=== PATIENT | female | born 1945 | race Caucasian/White ===

== ENCOUNTER → 2017-10-30 06:35 | Outpatient (CLI) | payer BC, MEDICARE, SELFPAY ==
[2017-10-30 07:55] LABS: Absolute Lymphocyte Count 2.05 X10^3/ul (0.83-4.51); Absolute Neutrophil Count 3.1 X10^3/uL (2.0-7.7); Basophil# 0.02 X10^3/uL; Basophil% 0.3 % (0-1); Eosinophil# 0.16 X10^3/uL; Eosinophils% 2.7 % (0-5); Hematocrit 39.9 % (37-47); Hemoglobin 12.5 g/dl (12.0-15.0); Lymphocyte # 2.05 X10^3/ul (4.0); Lymphocyte % 34.2 % (19-41); Mean Corp Hgb Conc 31.3 g/gl (32-36); Mean Corpuscular Hgb 28.9 pg (27.0-32.0); Mean Corpuscular Volume 92.1 fL (81-99); Mean Platelet Vol. 11.9 fl (6.2-12.0); Monocyte# 0.66 X10^3/uL; Neutrophil # 3.08 X10^3/uL (2.7-7.7); Neutrophil % 51.5 % (47-70); Platelet Count 207 K/mm3 (150-450); RBC Distribution Width CV 15.5 % (11.6-14.6); RBC Distribution Width SD 52.4 fl (35.1-43.9); Red Blood Count 4.33 M/mm3 (4.2-5.4)
[2017-10-30 07:57] LABS: POSITIVE COUNT NO; POSITIVE DIFFERENTIAL NO; POSITIVE MORPHOLOGY NO
[2017-10-30 08:42] LABS: ALB/GLOB Ratio 0.9 RATIO (0.9-2.4); AST(SGOT) 26 U/L (15-37); Alanine Aminotransfer ALT/SGPT 22 U/L (13-56); Albumin, Serum 3.5 g/dL (3.2-5.0); Alkaline Phosphatase 82 U/L (45-117); Anion Gap 8 (5-15); BUN 22 mg/dL (7-18); BUN/Creat Ratio 17.5 RATIO (10-20); Calcium,Total 8.5 mg/dL (8.5-10.1); Chloride 108 mmol/L (98-107); Cholesterol 158 mg/dL (200); Creatinine, Serum 1.26 mg/dL (0.55-1.02); EST Glomerular Filtration Rate 44 mL/min (>60); Est Glom Filt Rate - Afr Amer 54 mL/min (>60); Globulin 3.7 g/dL (2.2-4.2); Glucose 210 mg/dL (74-106); High Density Lipoprotein 35 mg/dL; Potassium 4.8 mmol/L (3.5-5.1); Protein, Total 7.2 g/dL (6.4-8.2); Sodium Level 141 mmol/L (136-145); Triglycerides 347 mg/dL; Very Low Density Lipoprotein 69 mg/dL (5-40)
[2017-10-30 08:46] LABS: Hemoglobin A1c 8.5 % (4.2-6.3)
[2017-10-30 10:10] LABS: Microalbumin:Creatinine Ratio 69.7 mg/g CRE (<30 mg/g CRE)
== END ==
PROVIDERS: Family Provider Family Medicine; PCP Family Medicine; Visit Provider Family Medicine
DX: E11.3299 Type 2 diabetes mellitus with mild nonproliferative diabetic retinopathy without macular edema, unspecified eye (principal); E11.65 Type 2 diabetes mellitus with hyperglycemia; I73.9 Peripheral vascular disease, unspecified; I10 Essential (primary) hypertension; E78.5 Hyperlipidemia, unspecified
CPT/HCPCS: 36415; 80053; 80061; 82043; 82570; 83036; 85025

== ENCOUNTER → 2018-04-25 06:51 | Outpatient (CLI) | payer MEDICARE, MEDICAID, SELFPAY ==
[2017-08-28 13:07] VITALS: BMI 35.5
[2018-04-25 08:42] LABS: Absolute Lymphocyte Count 2.03 X10^3/ul (0.83-4.51); Absolute Neutrophil Count 3.4 X10^3/uL (2.0-7.7); Basophil# 0.03 X10^3/uL; Basophil% 0.5 % (0-1); Eosinophil# 0.17 X10^3/uL; Eosinophils% 2.7 % (0-5); Hematocrit 37.4 % (37-47); Hemoglobin 11.9 g/dl (12.0-15.0); Lymphocyte # 2.03 X10^3/ul (4.0); Lymphocyte % 32.2 % (19-41); Mean Corp Hgb Conc 31.8 g/gl (32-36); Mean Corpuscular Hgb 30.1 pg (27.0-32.0); Mean Corpuscular Volume 94.4 fL (81-99); Mean Platelet Vol. 11.4 fl (6.2-12.0); Monocyte# 0.64 X10^3/uL; Monocyte% 10.1 % (0-10); Neutrophil # 3.42 X10^3/uL (2.7-7.7); Neutrophil % 54.2 % (47-70); Platelet Count 172 K/mm3 (150-450); RBC Distribution Width CV 15.3 % (11.6-14.6); RBC Distribution Width SD 51.2 fl (35.1-43.9); Red Blood Count 3.96 M/mm3 (4.2-5.4); White Blood Count 6.3 K/mm3 (4.4-11.0)
[2018-04-25 08:51] LABS: POSITIVE COUNT NO; POSITIVE DIFFERENTIAL NO; POSITIVE MORPHOLOGY NO
[2018-04-25 09:01] LABS: BUN 21 mg/dL (7-18); Creatinine, Serum 1.14 mg/dL (0.55-1.02); Glucose 170 mg/dL (74-106)
[2018-04-25 09:02] LABS: AST(SGOT) 15 U/L (15-37); Alanine Aminotransfer ALT/SGPT 22 U/L (13-56); Albumin, Serum 3.4 g/dL (3.2-5.0); Alkaline Phosphatase 83 U/L (45-117); Anion Gap 9 (5-15); BUN/Creat Ratio 18.4 RATIO (10-20); Calcium,Total 8.8 mg/dL (8.5-10.1); Chloride 109 mmol/L (98-107); Cholesterol 151 mg/dL (200); EST Glomerular Filtration Rate 50 mL/min (>60); Est Glom Filt Rate - Afr Amer 60 mL/min (>60); Globulin 3.5 g/dL (2.2-4.2); High Density Lipoprotein 33 mg/dL; Potassium 4.6 mmol/L (3.5-5.1); Protein, Total 6.9 g/dL (6.4-8.2); Sodium Level 142 mmol/L (136-145); Triglycerides 331 mg/dL; Very Low Density Lipoprotein 66 mg/dL (5-40)
[2018-04-25 09:09] LABS: Hemoglobin A1c 8.4 % (4.2-6.3)
[2018-04-25 09:11] LABS: Microalbumin:Creatinine Ratio 269.5 mg/g CRE (<30 mg/g CRE)
[2018-04-28 13:03] LABS: Lipoprotein A <10 nmol/L (<75)
== END ==
PROVIDERS: Family Provider Family Medicine; PCP Family Medicine; Referring Provider Family Medicine; Visit Provider Family Medicine
DX: E11.3299 Type 2 diabetes mellitus with mild nonproliferative diabetic retinopathy without macular edema, unspecified eye (principal); E11.65 Type 2 diabetes mellitus with hyperglycemia; I73.9 Peripheral vascular disease, unspecified; Z51.81 Encounter for therapeutic drug level monitoring; Z79.01 Long term (current) use of anticoagulants; E78.5 Hyperlipidemia, unspecified; I12.9 Hypertensive chronic kidney disease with stage 1 through stage 4 chronic kidney disease, or unspecified chronic kidney disease; N18.3 Chronic kidney disease, stage 3 (moderate)
CPT/HCPCS: 36415; 80053; 80061; 82043; 82570; 83036; 83695; 85025

== ENCOUNTER 2018-06-02 04:04 | Emergency (ER) | payer MEDICARE, MEDICAID, SELFPAY ==
[2018-06-02 04:05] VITALS: BP 197/64; PULSE 77; RESP 18; TEMP 36.8; O2SAT 97; BMI 38.9
--- NOTE | 2018-06-02 04:50 | ED.VISSUMM ---
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 Diabetic and hypertensive. History of hemorrhoids. Patient states about an hour ago she strained to have a bowel movement secondary to constipation. And had small amount of rectal bleeding with there was blood on the toilet paper but not much in the toilet itself. No clots. She denies any hematemesis. No melena. No abdominal pain. States she has had some constipation in the last 2 days use of MiraLAX and thinks she strained too hard with his last bowel movement. She denies being lightheaded or dizzy. Physical Examination: Well-appearing older female. Vital signs are stable. She is afebrile. She does not look septic or toxic. She is in no acute distress. HEENT exam unremarkable. Neck nontender. Lungs clear to auscultation bilaterally. Heart regular rhythm no murmur. Abdomen is soft and nontender. Normal bowel sounds no peritoneal signs. Extremities moves all 4. Neurovascularly intact. Calves nontender without edema. Back nontender. Neurologically she is awake and alert with no focal motor deficits. Rectal exam with a nurse present in the room. She does have an external hemorrhoid that is not bleeding. She has loose brown stool currently there is no melena or bleeding at this time. I did not appreciate any masses. The rectal exam is nontender. Test Results: CBC shows a white count of 5. Hemoglobin is 12 which is the patient's baseline. Electrolytes are unremarkable. Glucose of 223. Normal gap and creatinine. Patient is on Coumadin her INR is 2.1. Emergency Department Course and Treatment: Patient describes rectal bleeding by history sounds minor. She is on Coumadin will check her Coumadin level plus her blood counts. Treatment Plan: Repeat exam patient is doing well. She ambulated the bathroom without any difficulty nor any lightheadedness. Her workup is basically unremarkable. She has no signs of heavy bleeding. She is comfortable be discharged to home. Follow-up with her primary care physician and she may need to have a colonoscopy done. She knows to return if she has heavier bleeding or feels worse. This appears to be stable rectal bleeding and may be from an internal hemorrhoid versus another source. Disposition: Discharge Impression: Acute rectal bleeding Anticoagulated on Coumadin History of prior DVTs History of insulin-dependent diabetes This note was generated with [employer] dictation software. It may contain incorrect words, spelling, and punctuation that were not noted in review of the chart prior to signing ED Disposition - Plan for ED Patient: Referrals: Rufus Blanco DO [Primary Care Provider] -
[2018-06-02 05:06] LABS: Hemoglobin 12.2 g/dl (12.0-15.0); Mean Corp Hgb Conc 31.3 g/gl (32-36); Mean Corpuscular Hgb 29.6 pg (27.0-32.0); Mean Corpuscular Volume 94.7 fL (81-99); Mean Platelet Vol. 11.3 fl (6.2-12.0); Platelet Count 166 K/mm3 (150-450); RBC Distribution Width CV 15.1 % (11.6-14.6); RBC Distribution Width SD 51.9 fl (35.1-43.9); Red Blood Count 4.12 M/mm3 (4.2-5.4); White Blood Count 5.2 K/mm3 (4.4-11.0)
[2018-06-02 05:11] LABS: International Normalized Ratio 2.1; Prothrombin Time (Protime)PT. 23.9 SECONDS (11.7-14.9)
[2018-06-02 05:20] LABS: Anion Gap 8 (5-15); BUN 28 mg/dL (7-18); BUN/Creat Ratio 23.9 RATIO (10-20); Calcium,Total 8.9 mg/dL (8.5-10.1); Chloride 111 mmol/L (98-107); Creatinine, Serum 1.17 mg/dL (0.55-1.02); EST Glomerular Filtration Rate 48 mL/min (>60); Est Glom Filt Rate - Afr Amer 58 mL/min (>60); Glucose 223 mg/dL (74-106); Potassium 4.5 mmol/L (3.5-5.1); Scan Indicated on CBC? Y/N NO; Sodium Level 144 mmol/L (136-145)
--- NOTE | 2018-06-02 05:36 | ED.DEP ---
ED Disposition - Plan for ED Patient: Disposition: Home or Assisted Living Instructions: ED Hematochezia Stable Referrals: Rufus Blanco, [Primary Care Provider] - As soon as possible Additional Instructions: Return if feeling worse or much heavier bleeding such as your bleeding clots or black stool. Also if you feel lightheaded or dizzy. Continue your current medications. Follow-up your primary care physician they can get you arranged to see a local general surgeon or GI doctor to have a colonoscopy done. More than likely this is from straining with your constipation or may be coming from an internal hemorrhoid.
[2018-06-02 05:39] VITALS: BP 157/70; PULSE 64; RESP 18; O2SAT 96
== END 2018-06-02 05:40 | disposition home or self-care (01) ==
PROVIDERS: Emergency Provider Emergency Medicine; Family Provider Family Medicine; PCP Family Medicine
DX: K62.5 Hemorrhage of anus and rectum (principal); Z79.01 Long term (current) use of anticoagulants; K64.4 Residual hemorrhoidal skin tags; E11.9 Type 2 diabetes mellitus without complications; I10 Essential (primary) hypertension; J44.9 Chronic obstructive pulmonary disease, unspecified; Z86.718 Personal history of other venous thrombosis and embolism; Z79.4 Long term (current) use of insulin
CPT/HCPCS: 80048; 85027; 85610; 86850; 86900; 99283

== ENCOUNTER 2018-06-13 07:05 | Emergency (ER) | payer MEDICARE, MEDICAID, SELFPAY ==
[2018-06-13 07:06] VITALS: BP 211/82; PULSE 81; RESP 19; TEMP 36.8; O2SAT 96; BMI 39.9
--- NOTE | 2018-06-13 07:16 | CT_ITS ---
STUDY: CT ABDOMEN AND PELVIS WITHOUT CONTRAST REASON FOR EXAM: Female, 73 years old. Abdominal pain. Chronic renal disease. RADIATION DOSAGE (If Supplied By Facility): CTDIvol = ( 23.16 ) mGy, DLP = ( 1064.5 ) mGycm TECHNIQUE: Transaxial images were obtained from the dome of the diaphragm to the symphysis pubis without oral contrast, and without intravenous contrast. Sagittal and coronal images were reconstructed. Individualized dose optimization techniques were used for this CT. COMPARISON: Comparison is made with prior examination dated February 19, 2015. FINDINGS: Stable 4 mm nodular density in the lateral aspect of the left lower lobe as seen on axial image #4. The visualized portions of the heart are within normal limits. Normal liver. The patient is status post cholecystectomy. Normal spleen. Normal pancreas. Normal bilateral adrenal glands. There is a 1.6 cm cyst in the lateral posterior aspect of the right kidney. Parapelvic cysts. Normal visualized stomach. Normal small intestine. There are multiple colonic diverticula consistent with diverticulosis. The appendix is visualized and appears normal. There is diffuse atherosclerotic calcification of the abdominal aorta and its major visceral branches, without a demonstrated aneurysm. Normal inferior vena cava. Normal retroperitoneum. Normal urinary bladder. Enlarged fibroid uterus. Multiple calcified injection granulomas in both buttocks. There are diffuse degenerative changes of the visualized lumbar spine. Stable minimal anterolisthesis of L4 on L5. CT/Abdomen/Pelvis without Cont IMPRESSION: Stable examination. No acute abnormality is seen. Electronically Signed: Ketan Price MD at 8:39 EST , Service support ,
--- NOTE | 2018-06-13 07:16 | EKG12_ITS ---
Test Reason : ABD PAIN Blood Pressure : / mmHG Vent. Rate : 070 BPM Atrial Rate : 070 BPM P-R Int : 136 ms QRS Dur : 078 ms QT Int : 392 ms P-R-T Axes : 055 012 054 degrees QTc Int : 423 ms Normal sinus rhythm Normal ECG Confirmed by LEE TORRES, LIZETTE ([id number]), tape editor SHEELA CAAL ([id number] on 06/18/2018 11:31:40 AM Referred By: MIGUEL Confirmed By:LIZETTE HOWARD MD
[2018-06-13 07:30] LABS: Absolute Lymphocyte Count 1.28 X10^3/ul (0.83-4.51); Absolute Neutrophil Count 9.8 X10^3/uL (2.0-7.7); Basophil# 0.01 X10^3/uL; Basophil% 0.1 % (0-1); Eosinophil# 0.19 X10^3/uL; Eosinophils% 1.5 % (0-5); Hemoglobin 13.6 g/dl (12.0-15.0); Lymphocyte # 1.28 X10^3/ul (4.0); Lymphocyte % 10.3 % (19-41); Mean Corp Hgb Conc 31.6 g/gl (32-36); Mean Corpuscular Hgb 29.8 pg (27.0-32.0); Mean Corpuscular Volume 94.1 fL (81-99); Mean Platelet Vol. 11.1 fl (6.2-12.0); Monocyte# 1.15 X10^3/uL; Monocyte% 9.2 % (0-10); Neutrophil % 78.7 % (47-70); Platelet Count 200 K/mm3 (150-450); RBC Distribution Width CV 15.2 % (11.6-14.6); RBC Distribution Width SD 51.5 fl (35.1-43.9); Red Blood Count 4.57 M/mm3 (4.2-5.4); White Blood Count 12.5 K/mm3 (4.4-11.0)
[2018-06-13] MEDS: Ondansetron 4 MG/2 ML Vial IV (07:30)
[2018-06-13] MEDS: 0.9% Normal Saline 1,000 ML 1000 ML IV (07:30)
[2018-06-13 07:31] LABS: POSITIVE COUNT NO; POSITIVE DIFFERENTIAL NO; POSITIVE MORPHOLOGY NO
[2018-06-13 07:43] LABS: International Normalized Ratio 2.1
[2018-06-13 07:45] LABS: ALB/GLOB Ratio 0.9 RATIO (0.9-2.4); AST(SGOT) 14 U/L (15-37); Alanine Aminotransfer ALT/SGPT 20 U/L (13-56); Albumin, Serum 3.7 g/dL (3.2-5.0); Alkaline Phosphatase 92 U/L (45-117); Anion Gap 7 (5-15); BUN 24 mg/dL (7-18); BUN/Creat Ratio 21.6 RATIO (10-20); Calcium,Total 8.7 mg/dL (8.5-10.1); Chloride 109 mmol/L (98-107); Creatinine, Serum 1.11 mg/dL (0.55-1.02); EST Glomerular Filtration Rate 51 mL/min (>60); Est Glom Filt Rate - Afr Amer 62 mL/min (>60); Estimated Creatinine Clearance 36.78 ml/min; Globulin 3.9 g/dL (2.2-4.2); Glucose 217 mg/dL (74-106); Lipase 132 U/L (73-393); Protein, Total 7.6 g/dL (6.4-8.2); Sodium Level 141 mmol/L (136-145)
--- NOTE | 2018-06-13 08:08 | RAD_ITS ---
STUDY: X-RAY CHEST REASON FOR EXAM: Female, 73 years old. Chest pain and COPD. TECHNIQUE: Single AP portable view of the chest. COMPARISON: Comparison is made with prior study dated May 05, 2016. FINDINGS: EKG liquids are seen. The lungs are clear and expanded. Scattered calcified granulomas. There is no demonstrated pleural abnormality. Normal size heart. Normal mediastinum and hayder. Normal visualized pulmonary arteries. There is atherosclerotic tortuosity of the aortic arch and descending thoracic aorta. There are degenerative changes of the visualized thoracic spine. Normal visualized ribs, clavicles, and shoulders. There is no demonstrated abnormality of the visualized soft tissue structures of the upper abdomen. RAD/Chest 1 View (Portable) IMPRESSION: No acute abnormality is seen. Electronically Signed: Ketan Price MD at 8:51 EST , Service support ,
[2018-06-13] MEDS: LORazepam 2 MG/ML Syringe 0.5 MG IV (08:10)
[2018-06-13] MEDS: Morphine 4 MG/ML Syringe IV (09:12)
--- NOTE | 2018-06-13 09:13 | ED.VISSUMM ---
- ER Visit Summary Date of Service: 06/13/18 Chief Complaint: Abdominal pain History of Present Illness: The patient is a 73 F with epigastric abdominal pain. Symptoms started this morning when she woke up. She has pain in her epigastric region associated with nausea. She also had chills and sweats. No chest pain or respiratory symptoms. No urinary symptoms. She has been taking MiraLAX for constipation. She says she is compliant with her acid reflux medication. She does take Coumadin for history of DVTs. Physical Examination: Afebrile. Pressure 211/82. Otherwise vitals unremarkable. Patient appears uncomfortable. Heart and lung exam unremarkable. Abdomen soft but tender in the epigastric region. No guarding or rebound. Skin normal. Test Results: EKG showed sinus rhythm. Rate of 70. No signs of ischemia or infarction. White count 12.5. Chloride 109, glucose 217, BUN 24, creatinine 1.11. Hepatic panel and lipase unremarkable. INR 2.1. Troponin and lactate normal. Chest x-ray normal. CT abdomen stable with no acute changes. Emergency Department Course and Treatment: Patient initially declined pain medicine and was treated with fluids and Zofran. She requested something for anxiety as she normally takes Klonopin. She was treated with Ativan. Repeat blood pressure was 164/89. She had continued pain and was treated with morphine. Workup including labs and CT were all unremarkable. I have low suspicion for heart or lung disease. She does have a slightly elevated white count. She has a history of chronic kidney disease. Her INR is therapeutic. I suspect she may have an ulcer or gastritis. I believe she is appropriate for outpatient follow-up. She was given a short course of pain medicine and will follow up with Dr. Benito. Return for any new or worsening issues. Treatment Plan: As above Disposition: Discharge Impression: 1. Epigastric abdominal pain This note was generated with [employer] dictation software. It may contain incorrect words, spelling, and punctuation that were not noted in review of the chart prior to signing ED Disposition - Plan for ED Patient: Referrals: Rufus Blanco DO [Primary Care Provider] -
[2018-06-13 09:17] VITALS: BP 160/58; PULSE 75; RESP 21; O2SAT 94
--- NOTE | 2018-06-13 09:19 | DCINST.ED_ITS ---
ED Disposition - Plan for ED Patient: Instructions: ED Abdominal Pain Unkn Cause Prescriptions: Hydrocodone Bitart/Apap 5-325 [[place] 5MG-325MG] 1 tab PO Q6H PRN PRN 3 Days #10 tab PRN Reason: Pain Ondansetron [Zofran Odt] 4 mg PO Q8H PRN PRN #10 tab PRN Reason: Nausea Referrals: Kishan Benito MD [STAFF PHYSICIAN] -
[2018-06-13 10:05] VITALS: BP 159/65; PULSE 66; RESP 20; O2SAT 94
== END 2018-06-13 10:07 | disposition home or self-care (01) ==
LOC: ED 07:23
PROVIDERS: Emergency Provider Emergency Medicine; Family Provider Family Medicine; PCP Family Medicine
DX: R10.13 Epigastric pain (principal); R11.0 Nausea; R68.83 Chills (without fever); R61 Generalized hyperhidrosis; K59.00 Constipation, unspecified; E11.22 Type 2 diabetes mellitus with diabetic chronic kidney disease; I12.9 Hypertensive chronic kidney disease with stage 1 through stage 4 chronic kidney disease, or unspecified chronic kidney disease; N18.9 Chronic kidney disease, unspecified; K21.9 Gastro-esophageal reflux disease without esophagitis; E78.00 Pure hypercholesterolemia, unspecified; F41.9 Anxiety disorder, unspecified; H81.09 Meniere's disease, unspecified ear; Z86.718 Personal history of other venous thrombosis and embolism; Z79.01 Long term (current) use of anticoagulants; Z79.4 Long term (current) use of insulin; Z79.899 Other long term (current) drug therapy; Z87.891 Personal history of nicotine dependence
CPT/HCPCS: 71045; 74176; 80053; 83605; 83690; 84484; 85025; 85610; 93005; 96361; 96374; 96375; 99285; J7030; A4216; J2405

== ENCOUNTER 2018-06-25 02:35 | Inpatient (IN) | payer MEDICARE, MEDICAID, SELFPAY ==
[2018-06-25] VITALS (16 sets, daily range): BP systolic 118–184; BP diastolic 47–94; PULSE 71–92; RESP 16–20; TEMP 36.2–37.2; O2SAT 3–96; BMI 37.5; BMI 37.4
--- NOTE | 2018-06-25 02:39 | RAD_ITS ---
STUDY: X-RAY CHEST REASON FOR EXAM: Female, 73 years old. Cough. TECHNIQUE: Single AP portable view of the chest. COMPARISON: 06/13/2018. FINDINGS: The lungs are clear and expanded. There is no demonstrated pleural abnormality. Normal size heart. Normal mediastinum and hayder. Normal visualized pulmonary arteries. There is atherosclerotic calcification of the aortic arch with tortuosity. There are diffuse degenerative changes of the visualized thoracic spine. Normal visualized ribs, clavicles, and shoulders. There is no demonstrated abnormality of the visualized soft tissue structures of the upper abdomen. RAD/Chest 1 View (Portable) IMPRESSION: No evidence for acute cardiopulmonary pathology. Electronically Signed: Dilip Kruse MD at 3:50 EST , Service support ,
--- NOTE | 2018-06-25 02:39 | EKG12_ITS ---
Test Reason : SOB Blood Pressure : / mmHG Vent. Rate : 076 BPM Atrial Rate : 076 BPM P-R Int : 148 ms QRS Dur : 080 ms QT Int : 376 ms P-R-T Axes : 063 -02 043 degrees QTc Int : 423 ms Normal sinus rhythm Nonspecific ST abnormality Abnormal ECG Confirmed by JUANITO TORRES, JODIE ([id number]), supervising editor trailer EDY ROSENBAUM ([id number]) on 06/26/2018 10:10:08 AM Referred By: JOHN Confirmed By:JODIE SOLOMON MD
[2018-06-25] MEDS: Ipratropium/Albuterol Sulfate 3 ML AMPUL.NEB INHALATION ×4 (02:45→18:56)
--- NOTE | 2018-06-25 02:46 | ED.VISSUMM ---
- ER Visit Summary Date of Service: 06/25/18 Chief Complaint: Cough, fever, shortness of breath History of Present Illness: The patient is a 73 F presents to the emergency department cough, fever, shortness of breath. The patient symptoms began over the weekend. She saw her primary care in the office today. She was diagnosed with pneumonia. She was started on Levaquin and has had one dose. Overnight, shortness of breath has worsened. She felt like she was having difficulty breathing. She did call squad. On ambulance arrival, the patient was hypoxic with saturations in the mid 80s. She denies history of lung disease. She does have significant history of smoking, but quit 25 years ago. She has not on oxygen at home. She has had productive sputum. Patient does have a history of DVT and is on Coumadin. She denies any history of coronary vascular disease. She denies any history of congestive heart failure. Physical Examination: Vital signs reviewed General: Well-nourished, well-developed Head: Normocephalic, atraumatic Eyes: Pupils equal and reactive, extraocular muscles intact Neck, supple, no lymphadenopathy Heart: Regular rate and rhythm Respiratory: No distress, diminished in the bases bilaterally Abdomen: Soft, nontender, nondistended, no peritoneal signs Back: Nontender Extremities: Nontender, no edema, no cords Skin: Normal color no rash Neuro: Alert and oriented, no focal or lateralizing deficits Test Results: [] Emergency Department Course and Treatment: The patient presents with cough, shortness of breath, and was hypoxic at home. She was placed on supplemental oxygen and maintained saturations at 94% or greater. She was given nebulized breathing treatments with some improvement of her aeration. Screening labs are relatively unremarkable. Her lactate was negative. Her influenza is negative. Chest x-ray shows atelectasis versus early infiltrate in the left base. Given her hypoxia and infectious symptoms, I do feel the patient is going require admission. Patient was discussed with the hospitalist. Treatment Plan: [] Disposition: Admission Impression: 1. Community acquired pneumonia 2. Hypoxia This note was generated with [employer] software. It may contain incorrect words, spelling, and punctuation that were not noted in review of the chart prior to signing ED Disposition - Plan for ED Patient: Referrals: Rufus Blanco DO [Primary Care Provider] -
[2018-06-25 03:03] LABS: Absolute Lymphocyte Count 1.33 X10^3/ul (0.83-4.51); Absolute Neutrophil Count 4.2 X10^3/uL (2.0-7.7); Basophil# 0.03 X10^3/uL; Basophil% 0.4 % (0-1); Eosinophil# 0.21 X10^3/uL; Eosinophils% 3.1 % (0-5); Hematocrit 40.6 % (37-47); Hemoglobin 13.2 g/dl (12.0-15.0); Lymphocyte # 1.33 X10^3/ul (4.0); Lymphocyte % 19.8 % (19-41); Mean Corp Hgb Conc 32.5 g/gl (32-36); Mean Corpuscular Hgb 30.4 pg (27.0-32.0); Mean Corpuscular Volume 93.5 fL (81-99); Monocyte# 0.96 X10^3/uL; Monocyte% 14.3 % (0-10); Neutrophil # 4.18 X10^3/uL (2.7-7.7); Neutrophil % 62.1 % (47-70); Platelet Count 163 K/mm3 (150-450); RBC Distribution Width CV 14.9 % (11.6-14.6); RBC Distribution Width SD 49.3 fl (35.1-43.9); Red Blood Count 4.34 M/mm3 (4.2-5.4); White Blood Count 6.7 K/mm3 (4.4-11.0)
[2018-06-25 03:04] LABS: POSITIVE COUNT NO; POSITIVE DIFFERENTIAL NO; POSITIVE MORPHOLOGY NO
[2018-06-25] MEDS: Ondansetron 4 MG/2 ML Vial IV ×2 (03:07→06:23)
[2018-06-25 03:10] LABS: Prothrombin Time (Protime)PT. 22.9 SECONDS (11.7-14.9)
[2018-06-25] MEDS: 0.9% Normal Saline 1,000 ML 150 ML IV (03:10)
[2018-06-25 03:17] LABS: Anion Gap 9 (5-15); BUN 26 mg/dL (7-18); Calcium,Total 8.7 mg/dL (8.5-10.1); Chloride 108 mmol/L (98-107); EST Glomerular Filtration Rate 43 mL/min (>60); Est Glom Filt Rate - Afr Amer 52 mL/min (>60); Estimated Creatinine Clearance 31.41 ml/min; Glucose 202 mg/dL (74-106); Potassium 4.3 mmol/L (3.5-5.1); Sodium Level 142 mmol/L (136-145)
[2018-06-25 03:23] LABS: Lactic Acid 0.8 mmol/L (0.4-2.0)
--- NOTE | 2018-06-25 03:49 | PCM.HP.STD ---
Problem List (1) Acute hypoxemic respiratory failure Status: Acute (2) Gastroesophageal reflux disease with hiatal hernia Status: Chronic (3) Essential hypertension Status: Chronic (4) Anxiety disorder Status: Chronic Qualifiers: Anxiety disorder type: generalized anxiety disorder Qualified Code(s): F41.1 - Generalized anxiety disorder (5) History of arteriography Status: Chronic Comment: Right leg (6) History of Status: Chronic Comment: X3 (7) S/P cholecystectomy Status: Chronic History of Present Illness Date of Admission: 06/25/18 Chief Complaint: shortness of breath The patient is a 73 year old F with a significant history of anxiety disorder; CKD stage III; diabetes type 2; DVT; dyslipidemia; essential hypertension; GERD with hiatal hernia; obesity who presented to the emergency department with 4-day history of progressive worsening shortness of breath at rest which increases with mild exertion. Associated with her symptoms is productive cough of initially clear sputum, but later yellow sputum. Further, patient reported a subjective fever, chills, loose stools and abdominal pain. She had a associated abdominal pain with coughing. Patient went to her PCPs office a day before presentation. At the PCPs office crackles were heard in the left side of the lung and her oxygen saturation on room air was 88% for which reason she was diagnosed clinically with pneumonia. She was prescribed Levaquin 750mg po which she took x1 dose. Because her symptoms progressively worsened patient was brought to the ED by the paramedics. Paramedics reported an O2 saturation of 85% enroute to the emergency department. She reports nasal congestion making it difficult for her to breathe through her nose. Past Medical History Past Medical History (Chronic Problems): Chronic Problems (Last Reviewed 06/25/18 @ 04:59 by Khadar Nicolas MD) History of arteriography (Chronic) Right leg History of (Chronic) X3 S/P cholecystectomy (Chronic) Menieres disease (Chronic) Gastroesophageal reflux disease with hiatal hernia (Chronic) GERD (gastroesophageal reflux disease) (Chronic) Essential hypertension (Chronic) Dyslipidemia (Chronic) Diabetes mellitus, type 2 (Chronic) DVT of lower extremity (deep venous thrombosis) (Chronic) on coumadin Obesity (BMI 30-39.9) (Chronic) Depression (Chronic) Chronic renal failure, stage 3 (moderate) (Chronic) Anxiety disorder (Chronic) Medical History: Medical History (Last Reviewed 06/25/18 @ 04:59 by Khadar Nicolas MD) Menieres disease (Chronic) H81.09 Gastroesophageal reflux disease with hiatal hernia (Chronic) K21.9, K44.9 GERD (gastroesophageal reflux disease) (Chronic) K21.9 Essential hypertension (Chronic) I10 Dyslipidemia (Chronic) E78.5 Diabetes mellitus, type 2 (Chronic) E11.9 DVT of lower extremity (deep venous thrombosis) (Chronic) I82.4Z9 on coumadin Obesity (BMI 30-39.9) (Chronic) E66.9 Depression (Chronic) F32.9 Hypomagnesemia (Inactive) E83.42 Chronic renal failure, stage 3 (moderate) (Chronic) N18.3 Dehydration (Inactive) E86.0 Acute gastroenteritis (Inactive) K52.9 Hyponatremia (Inactive) E87.1 Anxiety disorder (Chronic) F41.9 Allergies Penicillins Allergy (Verified 06/25/18 02:39) Angioedema rosiglitazone maleate [From Avandia] Allergy (Verified 06/25/18 02:39) Unknown insulin detemir [From Levemir] Adverse Reaction (Verified 06/25/18 02:39) Other HIGH BLOOD PRESSURE prednisone Adverse Reaction (Verified 06/25/18 02:39) Other HYPERGLYCEMIA Sulfa (Sulfonamide Antibiotics) Adverse Reaction (Verified 06/25/18 02:39) Unknown Home Medications: Ambulatory Orders Medication Instructions Recorded Warfarin [Coumadin] 3 mg PO SUMOTUWEFRSA 08/28/14 Lisinopril [Zestril] 20 mg PO BID #60 tab 02/22/15 Clonazepam [Klonopin] 1 mg PO TID PRN PRN 08/14/15 Famotidine [Pepcid] 20 mg PO QHS 08/14/15 amlodipine 5 mg tablet 5 mg PO QHS 08/28/17 fenofibrate nanocrystallized 145 145 mg PO QHS 08/28/17 mg tablet hydrochlorothiazide 25 mg tablet 25 mg PO QAM 08/28/17 simvastatin 40 mg tablet 40 mg PO QAM 08/28/17 Insulin NPH Human Isophane 30 unit SQ BID 06/25/18 [Humulin N] Insulin Regular, Human [Humulin R] 100 unit SQ TID 06/25/18 Levofloxacin [Levaquin] 750 mg PO DAILY 06/25/18 Surgical History: Surgical History (Last Reviewed 06/25/18 @ 04:59 by Khadar Nicolas MD) History of arteriography (Chronic) Z98.890 Right leg History of (Chronic) Z98.891 X3 S/P cholecystectomy (Chronic) Z90.49 Surgical History: cholecystectomy, - - Psychiatric 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 Denies: Weight Change HEENT: Reports: Nasal Congestion. Denies: Head Aches, Sinus Congestion, Sinus Drainage Cardiovascular: Denies: Chest Pain, Palpitations Respiratory: Reports: Cough, Shortness of breath at rest, Sputum production Gastrointestinal: Reports: Abdominal Pain, Diarrhea - resolved. Denies: Nausea, Vomiting Genitourinary: Denies: Dysuria Musculoskeletal: Denies: Joint Pain, Joint Tenderness Skin: Denies: Rash, Wounds Neurological: Denies: Numbness, Tingling, Focal weakness Psychiatric: Reports: Anxiety. Denies: Depression, Homicidal Ideations, Suicidal Ideations Hematologic/ Lymphatic: Denies: Easy Bruising, Easy Bleeding VTE Information - Inpt Only VTE Present on Admission: No VTE Mechan Device Prophylaxis: None VTE Pharm Prophylaxis ordered?: No Reason prophylaxis not ordered:: Treatment Not Indicated - Continue Coumadin for history of DVT Patient Problems: Active and Suspected Problems (Last Reviewed 06/25/18 @ 04:59 by Khadar Nicolas MD) Acute hypoxemic respiratory failure (Acute) - Physical Exam General: Alert, Oriented x3, Cooperative HEENT: Atraumatic, Normocephalic Neck: Supple, Trachea Midline Lungs: Rales - Left lower lung ortiz Cardiovascular: Regular rate, No murmurs Abdomen: Bowel Sounds Present, Soft, Non Tender Extremities: No edema, Capillary Refill Less than 3 Seconds Skin: No rashes, No breakdown Musculoskeletal: No Muscle Wasting Neurological: Neuro grossly intact Psych/Mental Status: Anxious Vital Signs Temp Pulse Resp BP Pulse Ox 98.8 F 76 20 H 146/47 H 93 06/25/18 03:29 06/25/18 03:29 06/25/18 03:29 06/25/18 03:29 06/25/18 03:29 Oxygen Flow Rate (L/min) 2 Oxygen Delivery Method Nasal Cannula Weight: 96.1 kg Body Mass Index (BMI) 37.5 Finger Stick Blood Glucose 115 Microbiology Past 72 Hours 06/25/18 02:45 Influenza Types A,B Direct FA (TIAGO) - Final Mucosa - Nasopharyngeal Laboratory Tests Past 24 Hrs 06/25/18 06/25/18 06/25/18 02:50 02:50 02:50 WBC 6.7 RBC 4.34 Hgb 13.2 Hct 40.6 MCV 93.5 MCH 30.4 MCHC 32.5 RDW 14.9 H RDW Differential 49.3 H Plt Count 163 MPV 11.0 Immature Gran % (Auto) 0.300 Neut % (Auto) 62.1 Lymph % (Auto) 19.8 [place] % (Auto) 14.3 H Eos % (Auto) 3.1 Baso % (Auto) 0.4 Absolute Neuts (auto) 4.2 Absolute Lymphs (auto) 1.33 Total Counted Not Reportable PT INR Sodium 142 Potassium 4.3 Chloride 108 H Carbon Dioxide 25.0 Anion Gap 9 BUN 26 H Creatinine 1.30 H Estim Creat Clear Calc 31.41 Est GFR (MDRD) Af Amer 52 L Est GFR (MDRD) Non-Af 43 L BUN/Creatinine Ratio 20.0 Glucose 202 H Lactic Acid 0.8 Calcium 8.7 06/25/18 02:50 WBC RBC Hgb Hct MCV MCH MCHC RDW RDW Differential Plt Count MPV Immature Gran % (Auto) Neut % (Auto) Lymph % (Auto) [place] % (Auto) Eos % (Auto) Baso % (Auto) Absolute Neuts (auto) Absolute Lymphs (auto) Total Counted PT 22.9 H INR 2.0 Sodium Potassium Chloride Carbon Dioxide Anion Gap BUN Creatinine Estim Creat Clear Calc Est GFR (MDRD) Af Amer Est GFR (MDRD) Non-Af BUN/Creatinine Ratio Glucose Lactic Acid Calcium Assessment/Plan All Active Problems (Last Reviewed 06/25/18 @ 04:59 by Khadar Nicolas MD) Acute hypoxemic respiratory failure (Acute) Vertigo (Resolved) The patient is a 73 year old F with a significant history of anxiety disorder; CKD stage III; diabetes type 2; DVT; dyslipidemia; essential hypertension; GERD with hiatal hernia; obesity who presented to the emergency department with 4-day history of progressive worsening shortness of breath at rest which increases with mild exertion; productive cough of yellow sputum; subjective fever; chills; loose stools; abdominal pain; low oxygen saturation and rales at the left lower lung ortiz consistent with acute hypoxemic respiratory failure with hypoxia; likely secondary to community-acquired pneumonia. Acute hypoxemic respiratory failure. Likely secondary to community acquired pneumonia. Lactic acid: 0.8 RR ~16-20 Heart rate in the normal range Oxygen saturation: Reportedly 88% at PCPs office on room air; and 85% on room air by paramedics in route to the emergency department At the ED her oxygen saturation was between 94-95% on 2 L of oxygen Blood culture ?2 is pending Chest x-ray: Independently reviewed showed some opacities in bilateral lung ortiz. Per radiologist interpretation: No evidence of acute cardiopulmonary pathology Respiratory Gram stain and culture ordered Antibiotics : Took Levaquin 750 mg p.o. at about 12 noon on 06/24/2018. Because of her estimated creatinine clearance of 31.41 we will give her 500 mg of IV Levaquin on 06/25/2018 (x1 dose) at 12 noon. Consider 750 mg of IV Levaquin every 48 hours; or as may be appropriate by her creatinine clearance. Of note on patient allergy list is angioedema from penicillin for which reason cephalosporins where not ordered. IV hydration: Received 1 L bolus normal saline the emergency department. Noted to have mild hyperchloremia. We will hold off further IV fluids at this time. Trend BMP. DuoNeb scheduled. Albuterol as needed Legionella antigen screen and Strep antigen ordered Influenza screen was negative. Will order comprehensive respiratory pathogen panel. Supplemental oxygen as needed Flonase for nasal congestion History of DVT On presentation her INR was therapeutic at 2. Patient is unsure whether she took her Coumadin on 06/25/2018. Continue Coumadin 3 mg daily. Daily INR. Diabetes mellitus On presentation her blood glucose was not within goal. Patient takes NPH about 35 units bid depending upon her blood glucose. At home typically her blood glucose is not very high in the morning so she takes a reduced dose of the NPH. Ordered NPH 25 units in a.m.; and 30 units at night. Although she had a correction scale short acting insulin on her med list she reported that it had been a long time since she took her correction scale insulin. Accu-Chek q. before meals and at bedtime; and with moderate correction scale insulin ordered. Hypertension On presentation her blood pressure was not within goal. Amlodipine, hydrochlorothiazide and lisinopril continued Trend blood pressure and adjust blood pressure medication CKD stage III Creatinine on admission was 1.30; close to baseline Stable Hyperlipidemia Simvastatin and fenofibrate continued General anxiety disorder Clonazepam prn continued DVT prophylaxis Not indicated in the setting of patient being on Coumadin and therapeutic on her INR for a previous history DVT. Coumadin continued. Code Visit Inpatient E&M: 24585 In Hosp L3
[2018-06-25] MEDS: Acetaminophen 325 MG Tablet 650 MG PO (06:22)
[2018-06-25] MEDS: Insulin Lispro 100 UNIT/ML INSULN.PEN SQ ×3 (07:47→21:51)
[2018-06-25] MEDS: Insulin NPH Human 100 UNITS/ML PEN 25 UNITS SC (07:49)
[2018-06-25 08:11] LABS: Bedside Glucose 190 mg/dL (70-110)
[2018-06-25] MEDS: Lisinopril 20 MG Tablet PO ×2 (11:42→21:43)
[2018-06-25] MEDS: guaiFENesin 1,200 MG Tablet 1200 MG PO ×2 (11:42→21:44)
[2018-06-25] MEDS: hydroCHLOROthiazide 25 MG Tablet PO (11:43)
[2018-06-25] MEDS: Fluticasone 0.05% 1 SPRAY NASAL.SRY 2 SPRAY NASAL (11:45)
[2018-06-25] MEDS: levoFLOXacin IV 500 MG/100 ML BAG 100 MG IV (11:53)
[2018-06-25 12:06] LABS: Bedside Glucose 241 mg/dL (70-110)
--- NOTE | 2018-06-25 13:23 | CASEMGMT ---
RN CM Assessment Presentation: Acute hypoxemic respiratory failure Intro role of CM and purpose of RN CM assessment. Pt is sitting in chair and able to participate in RN CM Assessment. Pt's is also in hospital. Pt has not seen him as she is in isolation. PT/OT ordered, and pt is on 3L [place] oxygen presently. PCP: Dr. Rufus Blanco Preferred Pharmacy: [facility] Insurance: [employer] [facility] Prescription Benefit: yes through insurance. LNOK: , Waldemar Guzman Living Arrangements: Two story home with bathroom and bedroom on second floor only. Pt states she is independent and states she does not use ambulatory DME. Pt states she has 2 handrails going upstairs. Pt admits to feeling weaker with this illness Transportation: drives or drives DME: wheeled walker, cane electric wheelchair, shower chair. (no oxygen, cpap, nebulizer use) HHC: nonskilled aides being arranged through [facility]. Pt has RN CM through [facility], does not remember her name. RN CM let pt know to contact them on dc so they can resume setting up aide for home. DC PLAN: Home on dc. Additional therapy recommended. Pt ambulted 35' with assist of 1. CM to follow and may recommend PT through Home Health. On 3L [place] presently- may need Home oxygen testing if continues to need oxygen @ discharge.
--- NOTE | 2018-06-25 15:34 | PCM.PN.BLA ---
Progress Note 73-year-old female with a past medical history of asthma, GERD, hypertension, anxiety order, hx of DVT's, stage III chronic renal failure and obesity who presented to the emergency room at [facility] on 06/25/2018 complaining of shortness of breath. She had been seen at her PCP's office on 06/24 and pulse ox was 88% on RA and she had crackles in the left base and she was started on Levaquin 750 mg daily. She is on coumadin. The paramedics reported a pulse ox of 85% on route to the emergency department. Breath sounds were diminished per the ER physician with no wheezes, rales or rhonchi. Labs showed a normal white blood cell count at 6.7 with 62% neutrophils. Hemoglobin and platelets were within normal limits. The INR was barely therapeutic at 2.0. BUN was 26 and the creatinine was 1.30...it was 1.11 on 06/13/18. Lactic acid was normal at 0.8. Chest x-ray showed no infiltrates, pleural effusions or pulmonary vascular congestion. She was admitted to the hospital with a diagnosis of acute exacerbation of asthma. Afebrile since admission. Legionella and streptococcal antigens in the urine were negative The respiratory panel was positive for human [place] pneumo virus. Vital signs are stable and she is 94% saturated on a 2 L nasal cannula. She is alert and oriented x3 and appears to be in no acute distress. Mucous membranes are dry She is not tachypneic and has no conversational dyspnea or accessory muscle use. Lungs are clear to auscultation throughout without rales, rhonchi or wheezes Abdomen-soft, nontender, nondistended, bowel sounds present No peripheral edema Impressions 1. Acute exacerbation of asthma secondary to viral URI secondary to human [place] pneumo virus. Discontinue Levaquin-I see no need for antibiotics at this time and Levaquin will interfere with warfarin Prednisone 40 mg daily Pulse ox with ambulation on RA in the AM Possible DC tomorrow
[2018-06-25] MEDS: predniSONE 20 MG Tablet 40 MG PO (16:26)
[2018-06-25 16:35] LABS: Bedside Glucose 126 mg/dL (70-110)
[2018-06-25] MEDS: Fenofibrate 145 MG Tablet PO (21:43)
[2018-06-25] MEDS: Famotidine 20 MG Tablet PO (21:43)
[2018-06-25] MEDS: amLODIPine 5 MG Tablet PO (21:44)
[2018-06-25] MEDS: Atorvastatin Calcium 20 MG Tablet PO (21:44)
[2018-06-25] MEDS: Insulin NPH Human 100 UNITS/ML PEN 30 UNITS SC (21:52)
[2018-06-25 23:06] LABS: Bedside Glucose 353 mg/dL (70-110)
[2018-06-26] VITALS (10 sets, daily range): BP systolic 148–155; BP diastolic 66–93; PULSE 73–92; RESP 16–24; TEMP 36.6–36.8; O2SAT 88–94
[2018-06-26] MEDS: Ipratropium/Albuterol Sulfate 3 ML AMPUL.NEB INHALATION ×4 (00:24→19:29)
[2018-06-26 06:23] LABS: International Normalized Ratio 1.9; Prothrombin Time (Protime)PT. 21.5 SECONDS (11.7-14.9)
[2018-06-26] MEDS: Insulin Lispro 100 UNIT/ML INSULN.PEN SQ ×4 (06:42→22:45)
[2018-06-26 06:51] LABS: Bedside Glucose 296 mg/dL (70-110)
[2018-06-26] MEDS: predniSONE 20 MG Tablet 40 MG PO (08:22)
[2018-06-26] MEDS: Insulin NPH Human 100 UNITS/ML PEN 25 UNITS SC (08:23)
--- NOTE | 2018-06-26 10:00 | NURSING ---
Reviewed vitals completed by SN Coe. Pt working with PT at this time.
[2018-06-26] MEDS: Fluticasone 0.05% 1 SPRAY NASAL.SRY 2 SPRAY NASAL (10:53)
[2018-06-26] MEDS: hydroCHLOROthiazide 25 MG Tablet PO (10:55)
[2018-06-26] MEDS: guaiFENesin 1,200 MG Tablet 1200 MG PO ×2 (10:55→22:32)
[2018-06-26] MEDS: Lisinopril 20 MG Tablet PO ×2 (10:55→22:31)
[2018-06-26] MEDS: clonazePAM 1 MG Tablet PO (10:57)
[2018-06-26 11:16] LABS: Bedside Glucose 373 mg/dL (70-110)
--- NOTE | 2018-06-26 14:31 | NURSING ---
student nurse Carolni's charting reviewed for educational learning purposes by rex
[2018-06-26] MEDS: Glucerna Shake 120 ML LIQUID PO (14:38)
[2018-06-26] MEDS: Acetaminophen 325 MG Tablet 650 MG PO (19:22)
--- NOTE | 2018-06-26 19:23 | PCM.PROGNOTE ---
Patient Problems: Active and Suspected Problems (Last Reviewed 06/25/18 @ 04:59 by Khadar Nicolas MD) Acute hypoxemic respiratory failure (Acute) Subjective: All events of the past 24 hours of been reviewed. Afebrile since admission Vital signs are stable She is 88% ambulating on room air and 93% at rest on a 2 L nasal cannula. Respiratory panel was positive for human [place] pneumo virus Blood sugars have increased significantly with the addition of prednisone 40 mg daily. Denies nausea today and has taken 1500 cc orally today. Last bowel movement was 06/25/2018. Sputum Gram stain showed rare white blood cells in the sputum culture is pending. Tells me that she is feeling weak - Physical Exam General: Alert, Oriented x3, Cooperative, No apparent distress HEENT: Atraumatic, PERRLA, EOMI, Normocephalic Oral: Moist Mucosa Neck: Supple, Trachea Midline Lungs: Clear to auscultation, No rhonchi, No wheeze, No rales, Diminished - poor inspiratory effort, - - Not tachypneic, no conversational dyspnea, no accessory muscle use Cardiovascular: Regular rate, Regular Rhythm, Normal S1, Normal S2, No rub noted, No Gallop Abdomen: Bowel Sounds Present, Soft, Non Tender, Non-Distended, Obese Extremities: No clubbing, No cyanosis Skin: No rashes Neurological: Cranial nerves II-XII grossly intact, Neuro grossly intact Psych/Mental Status: Normal Affect, Appropriate Vital Signs Temp Pulse Resp BP Pulse Ox 98 F 82 18 148/71 H 93 06/26/18 16:00 06/26/18 16:00 06/26/18 16:00 06/26/18 16:00 06/26/18 16:00 Oxygen Flow Rate (L/min) 2 Oxygen Delivery Method Nasal Cannula Weight: 211 lb 6.773 oz Body Mass Index (BMI) 37.4 Finger Stick Blood Glucose 115 Intake and Output for Last 24 Hours 06/24/18 06/25/18 06/26/18 23:59 23:59 23:59 Intake Total 643 / 643 1500 / 1500 Output Total 200 / 200 300 / 300 Balance 443 / 443 1200 / 1200 Microbiology Past 72 Hours 06/25/18 08:55 Gram Stain - Final Sputum, Expectorated/Coughed 06/25/18 02:45 Respiratory Panel (PCR) - Final Mucosa - Nasopharyngeal Human [place] 06/25/18 12:00 Legionella Antigen - Final Urine, Clean Catch 06/25/18 12:00 Streptococcus pneumoniae Antigen (M - Final Urine, Clean Catch 06/25/18 02:45 Influenza Types A,B Direct FA (TIAGO) - Final Mucosa - Nasopharyngeal Laboratory Tests Past 24 Hrs 06/26/18 05:46 PT 21.5 H INR 1.9 POC Glucose 06/26/18 06/26/18 06/25/18 11:05 06:40 21:49 POC Glucose 373 H 296 H 353 H Medical Necessity - Tobacco Use Smoking Status: Former smoker Assessment/Plan All Active Problems (Last Reviewed 06/25/18 @ 04:59 by Khadar Nicolas MD) Acute hypoxemic respiratory failure (Acute) Vertigo (Resolved) Impressions 1. viral URI due to HMP virus 2. Acute hypoxic respiratory failure ruled out 3. Mild hypoxemia secondary to viral URI with bronchospasm 4. Hypertension 5. GERD/HH 6. Anxiety disorder 7. Obesity 8. Chronic renal failure stage III 9. Diabetes mellitus type 2-blood sugars are uncontrolled secondary to prednisone 10. Dyslipidemia 11. History of DVT in the past with borderline therapeutic INR at admission - she was given an increased dose of Warfarin yesterday and the INR is only 1.9 today 12. Chronic anticoagulation with warfarin Refuses to take a bigger dose of Warfarin today continue the Prednisone Recheck and ambulatory pulse ox on RA in the AM IS Recheck PT/INR in a.m. Hemoglobin A1c in a.m. Increase the sliding scale insulin to a high dose scale Probable discharge in the a.m. Code Visit Inpatient E&M: 21210 Subs Hosp L2
[2018-06-26] MEDS: Atorvastatin Calcium 20 MG Tablet PO (22:31)
[2018-06-26] MEDS: amLODIPine 5 MG Tablet PO (22:32)
[2018-06-26] MEDS: Fenofibrate 145 MG Tablet PO (22:32)
[2018-06-26] MEDS: Famotidine 20 MG Tablet PO (22:32)
[2018-06-26 22:40] LABS: Bedside Glucose 447 mg/dL (70-110)
[2018-06-26] MEDS: Insulin NPH Human 100 UNITS/ML PEN 30 UNITS SC (22:45)
[2018-06-27 04:01] VITALS: BP 145/66; PULSE 68; RESP 18; TEMP 36.9; O2SAT 94
[2018-06-27] MEDS: 0.9% NaCl Peripheral Flush Adult/Peds IV (04:07)
[2018-06-27 04:11] LABS: Bedside Glucose 196 mg/dL (70-110)
[2018-06-27 05:45] LABS: International Normalized Ratio 2.4
[2018-06-27 06:56] VITALS: PULSE 81; RESP 20; O2SAT 94
[2018-06-27] MEDS: Ipratropium/Albuterol Sulfate 3 ML AMPUL.NEB INHALATION (06:56)
[2018-06-27 07:00] LABS: Bedside Glucose 462 mg/dL (70-110)
[2018-06-27 07:00] LABS: Bedside Glucose 439 mg/dL (70-110)
[2018-06-27 07:47] VITALS: BP 149/66; PULSE 66; RESP 18; TEMP 36.6; O2SAT 93
[2018-06-27] MEDS: guaiFENesin 1,200 MG Tablet 1200 MG PO (07:52)
[2018-06-27] MEDS: predniSONE 20 MG Tablet 40 MG PO (07:52)
[2018-06-27] MEDS: hydroCHLOROthiazide 25 MG Tablet PO (07:52)
[2018-06-27] MEDS: Lisinopril 20 MG Tablet PO (07:52)
[2018-06-27] MEDS: Fluticasone 0.05% 1 SPRAY NASAL.SRY 2 SPRAY NASAL (07:53)
[2018-06-27 07:59] VITALS: O2SAT 91
[2018-06-27 08:10] LABS: Hemoglobin A1c 8.3 % (4.2-6.3)
[2018-06-27 08:36] LABS: Bedside Glucose 111 mg/dL (70-110)
[2018-06-27] MEDS: clonazePAM 1 MG Tablet PO (11:18)
[2018-06-27 11:26] LABS: Bedside Glucose 210 mg/dL (70-110)
--- NOTE | 2018-06-27 11:52 | DCINST_ITS ---
- Discharge Diagnoses Current Active Problems: Current Active and Chronic Problems (Last Reviewed 06/25/18 @ 04:59 by Khadar Nicolas MD) Acute hypoxemic respiratory failure (Acute) You will use the following diet at home:: Calorie/Carbohydrate Controlled (specify 1200, 1400, etc), Cardiac Your food should be the consistency of: Regular Your liquids should be the consistency of: Regular/Thin Discharge Activity: - - Avoid exposure to any strong smells such as bleach, cleaning products, strong colognes or perfumes, paint fumes and smoke of any kind. Avoid sudden exposure to cold air because this can cause bronchospasm. You may want to cover your mouth when you go outside in the winter. Avoid exposure to anyone who is sick with a cough or sore throat. Call your doctor if you observe: Fever of 101 or Higher, Shortness of breath, Fainting spells, Swelling in the ankles, Chest pain Additional Instructions: 1. You do not have pneumonia. You have an upper respiratroy infection, called bronchitis, and it is caused by a virus. The virus causes inflammation in the airways and this leads to wheezing. You are on prednisone to decrease the inflammation in the airways. You are also being sent home with a inhaler to use when you are short of breath or wheezing......you can use 2 puffs every 4 hours as needed. 2. Stay in for the next week and get plenty of rest. If you are tired or short of breath sit down. 3. your blood sugars are going to be high because of the prednisone but, as the dose is tapered over the next 10 days the blood sugars will come down. Use the following insulin scale before meals: 150-189 1 unit. 190-229 2 units. 230-269 3 units. 270-309 4 units. 310-349 5 units. 350-399 6 units. Greater than 409 units. 4. I gave you a prescription for robitussin DM.....it continues mucinex and a cough suppressant and NOTHING to increase the BP. You can take 5-10 CC every 6 hours as needed for cough Allergies/Adverse Reactions: Allergies Penicillins Allergy (Verified 06/25/18 02:39) Angioedema rosiglitazone maleate [From Avandia] Allergy (Verified 06/25/18 04:51) hyperglycemia insulin detemir [From Levemir] Adverse Reaction (Verified 06/25/18 04:51) hyperglycemia prednisone Adverse Reaction (Verified 06/25/18 04:51) hyperglycemia HYPERGLYCEMIA Sulfa (Sulfonamide Antibiotics) Adverse Reaction (Verified 06/25/18 04:51) Unknown pt is unsure Medications to take at Discharge Warfarin [Coumadin] 2.5 mg PO DAILY 08/28/14 Lisinopril [Zestril] 20 mg PO BID #60 tab 02/22/15 Clonazepam [Klonopin] 1 mg PO TID PRN PRN 08/14/15 Famotidine [Pepcid] 20 mg PO QHS 08/14/15 amlodipine 5 mg tablet 5 mg PO QHS 08/28/17 fenofibrate nanocrystallized 145 mg tablet 145 mg PO QHS 08/28/17 hydrochlorothiazide 25 mg tablet 25 mg PO QAM 08/28/17 simvastatin 40 mg tablet 40 mg PO QHS 08/28/17 Insulin NPH Human Isophane [Humulin N] 30 unit SQ BID 06/25/18 Insulin Regular, Human [Humulin R] unit SQ TID 06/25/18 Guaifenesin Dm [Robitussin Dm] 10 ml PO Q6H PRN PRN #120 udc 06/27/18 Prednisone 10 mg PO UD #30 tab 06/27/18 The following prescriptions were given: Guaifenesin Dm [Robitussin Dm] 10 ml PO Q6H PRN PRN #120 udc PRN Reason: Cough Prednisone 10 mg PO UD #30 tab Primary Care Physician: Rufus Blanco DO [Primary Care Provider] - Please follow up with your Primary Care Physician in: 7-10 days Test Results: Test results from this visit will be discussed in further detail at your follow- up appointment, if applicable. Proposed Discharge Date: 06/27/18
--- NOTE | 2018-06-27 12:10 | DS.PCM_ITS ---
Discharge Date and Diagnosis Date of Admission: 06/25/18 Date of Discharge: 06/27/18 - Primary Discharge Diagnosis Active and Suspected Problems (Last Reviewed 06/25/18 @ 04:59 by Khadar Nicolas MD) Pneumonia-ruled out Viral URI (Acute) -secondary to human Slaughter pneumo virus Hypoxia (Acute)-resolved Bronchospasm with bronchitis, acute (Acute) - Secondary Discharge Diagnosis Chronic Problems (Last Reviewed 06/25/18 @ 04:59 by Khadar Nicolas MD) Chronic anticoagulation (Chronic) with warfarin Menieres disease (Chronic) Gastroesophageal reflux disease with hiatal hernia (Chronic) Essential hypertension (Chronic) Dyslipidemia (Chronic) Diabetes mellitus, type 2 (Chronic) 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 Electronically Signed: Dilip Kruse MD at 3:50 EST , Service support , Microbiology 06/25/18 08:55 Sputum, Expectorated/Coughed Gram Stain - Final 06/25/18 08:55 Sputum, Expectorated/Coughed Respiratory Culture - Preliminary Appears to be normal respiratory zeynep. Further studies to follow. 06/25/18 03:00 Blood Culture (Wb) #2 - Anticubital Right Blood Culture - Preliminary No growth in 48 hours. 06/25/18 02:50 Blood Culture (Wb) - Anticubital Left Blood Culture - Preliminary No growth in 48 hours. 06/25/18 02:45 Mucosa - Nasopharyngeal Respiratory Panel (PCR) - Final Human Combined Locks 06/25/18 12:00 Urine, Clean Catch Legionella Antigen - Final 06/25/18 12:00 Urine, Clean Catch Streptococcus pneumoniae Antigen (M - Final 06/25/18 02:45 Mucosa - Nasopharyngeal Influenza Types A,B Direct FA (TIAGO) - Final Laboratory Results - last 24 hr 06/26/18 06/26/18 06/26/18 16:13 16:23 22:25 PT INR Hemoglobin A1c POC Glucose 462 H* 439 H 447 H 06/27/18 06/27/18 06/27/18 03:58 05:18 05:18 PT 26.0 H INR 2.4 Hemoglobin A1c 8.3 H POC Glucose 196 H 06/27/18 06/27/18 07:45 11:06 PT INR Hemoglobin A1c POC Glucose 111 H 210 H none Operations: None Procedures: None Summary of Care Provided: 73-year-old female with a past medical history of asthma, GERD, hypertension, anxiety order, hx of DVT's, stage III chronic renal failure and obesity who presented to the emergency room at [facility] on 06/25/2018 complaining of shortness of breath. She had been seen at her PCP's office on 06/24 and pulse ox was 88% on RA and she had crackles in the left base and she was started on Levaquin 750 mg daily. She is on coumadin. The paramedics reported a pulse ox of 85% on route to the emergency department. Breath sounds were diminished per the ER physician with no wheezes, rales or rhonchi. Labs showed a normal white blood cell count at 6.7 with 62% neutrophils. Hemoglobin and platelets were within normal limits. The INR was barely therapeutic at 2.0. BUN was 26 and the creatinine was 1.30...it was 1.11 on 06/13/18. Lactic acid was normal at 0.8. Chest x-ray showed no infiltrates, pleural effusions or pulmonary vascular congestion. She was admitted to the hospital with a diagnosis of acute exacerbation of asthma. Respiratory panel the following day showed human Slaughter pneumo virus. Blood cultures had no growth. Sputum culture had normal respiratory zeynep. Legionella and streptococcal antigens in the urine were negative. She improved with rest, aerosolized bronchodilators, steroids, Mucinex and good pulmonary toilet. On 06/27/2018 she was afebrile with stable vital signs. She was 93-94% saturated on a 2 L nasal cannula and 91% on room air with ambulation. She was discharged with prescriptions for guaifenesin DM and prednisone to be tapered over 10 days. Blood sugars had significantly increased with initiation of prednisone and she was discharged with a new sliding scale to follow until the prednisone was tapered off. She will follow-up with Dr. Rufus Blanco in the office in 7-10 days. She was instructed to maintain good fluid intake to prevent dehydration due to high blood sugars. - Physical Exam General: Alert, Oriented x3, Cooperative, No apparent distress HEENT: Atraumatic, PERRLA, EOMI, Normocephalic Oral: Moist Mucosa Neck: Supple, Trachea Midline Lungs: Clear to auscultation, No rhonchi, No wheeze, No rales, Diminished - better inspiratory effort than yesterday - - Not tachypneic, no conversational dyspnea, no accessory muscle use Cardiovascular: Regular rate, Regular Rhythm, Normal S1, Normal S2, No rub noted, No Gallop Abdomen: Bowel Sounds Present, Soft, Non Tender, Non-Distended, Obese Extremities: No clubbing, No cyanosis Skin: No rashes Neurological: Cranial nerves II-XII grossly intact, Neuro grossly intact Psych/Mental Status: Normal Affect, Appropriate This note was generated with [employer] dictation software. It may contain incorrect words, spelling, and punctuation that were not noted in checking the note before signing. - Physical Exam Vital Signs Temp Pulse Resp BP Pulse Ox 97.8 F 66 18 149/66 H 91 06/27/18 07:47 06/27/18 07:47 06/27/18 07:47 06/27/18 07:47 06/27/18 07:59 Oxygen Flow Rate (L/min) 2 Oxygen Delivery Method Nasal Cannula Weight: 211 lb 6.773 oz Body Mass Index (BMI) 37.4 Finger Stick Blood Glucose 115 Intake and Output for Last 24 Hours 06/25/18 06/26/18 06/27/18 23:59 23:59 23:59 Intake Total 643 / 643 1900 / 1900 400 / 400 Output Total 200 / 200 300 / 300 Balance 443 / 443 1600 / 1600 400 / 400 Microbiology Past 72 Hours 06/25/18 08:55 Gram Stain - Final Sputum, Expectorated/Coughed Respiratory Culture - Preliminary Appears to be normal respiratory zeynep. Further studies to follow. 06/25/18 03:00 Blood Culture - Preliminary Blood Culture (Wb) #2 - Anticubital Right No growth in 48 hours. 06/25/18 02:50 Blood Culture - Preliminary Blood Culture (Wb) - Anticubital Left No growth in 48 hours. 06/25/18 02:45 Respiratory Panel (PCR) - Final Mucosa - Nasopharyngeal Human Combined Locks 06/25/18 12:00 Legionella Antigen - Final Urine, Clean Catch 06/25/18 12:00 Streptococcus pneumoniae Antigen (M - Final Urine, Clean Catch 06/25/18 02:45 Influenza Types A,B Direct FA (TIAGO) - Final Mucosa - Nasopharyngeal Laboratory Tests Past 24 Hrs 06/27/18 06/27/18 05:18 05:18 PT 26.0 H INR 2.4 Hemoglobin A1c 8.3 H POC Glucose 06/27/18 06/27/18 06/27/18 11:06 07:45 03:58 POC Glucose 210 H 111 H 196 H 06/26/18 06/26/18 06/26/18 22:25 16:23 16:13 POC Glucose 447 H 439 H 462 H* Discharge Activity: - - Avoid exposure to any strong smells such as bleach, cleaning products, strong colognes or perfumes, paint fumes and smoke of any kind. Avoid sudden exposure to cold air because this can cause bronchospasm. You may want to cover your mouth when you go outside in the winter. Avoid exposure to anyone who is sick with a cough or sore throat. Call your doctor if you observe: Fever of 101 or Higher, Shortness of breath, Fainting spells, Swelling in the ankles, Chest pain Home Medications: Medications to take at Discharge Warfarin [Coumadin] 2.5 mg PO DAILY 08/28/14 Lisinopril [Zestril] 20 mg PO BID #60 tab 02/22/15 Clonazepam [Klonopin] 1 mg PO TID PRN PRN 08/14/15 Famotidine [Pepcid] 20 mg PO QHS 08/14/15 amlodipine 5 mg tablet 5 mg PO QHS 08/28/17 fenofibrate nanocrystallized 145 mg tablet 145 mg PO QHS 08/28/17 hydrochlorothiazide 25 mg tablet 25 mg PO QAM 08/28/17 simvastatin 40 mg tablet 40 mg PO QHS 08/28/17 Insulin NPH Human Isophane [Humulin N] 30 unit SQ BID 06/25/18 Insulin Regular, Human [Humulin R] unit SQ TID 06/25/18 Guaifenesin Dm [Robitussin Dm] 10 ml PO Q6H PRN PRN #120 udc 06/27/18 Prednisone 10 mg PO UD #30 tab 06/27/18 Following Prescrptions Were Given to Patient: Guaifenesin Dm [Robitussin Dm] 10 ml PO Q6H PRN PRN #120 udc PRN Reason: Cough Prednisone 10 mg PO UD #30 tab Primary Care Physician: Rufus Blanco DO [Primary Care Provider] - Please follow up with your Primary Care Physician in: 7-10 days Disposition: Home Minutes spent on discharge:: 30 Patient Condition:: Good Medical Necessity - Tobacco Use Smoking Status: Former smoker Tobacco Use: Non-smoker Meaningful Use Info Meaningful Use Diagnoses (Choose all that apply): None applicable Code Visit Inpatient E&M: 93983 Disch Hosp
[2018-06-27] MEDS: Insulin Lispro 100 UNIT/ML INSULN.PEN SQ (12:40)
[2018-06-27] MEDS: Insulin NPH Human 100 UNITS/ML PEN 25 UNITS SC (12:41)
--- NOTE | 2018-06-28 16:31 | CASEMGMT ---
AUDRA LEUNG Discharge F/U Phone Call Strata: 4 Discharge date: 06/27/18 Call date: 06/28/18 Call time: 1632 Attempted to reach pt without success at this time, unable to leave message for pt at this time. SStaten AUDRA CM Admission dx: Acute hypoxemic resp failure
== END 2018-06-27 14:22 | disposition home or self-care (01) | DRG 153 ==
LOC: ED 03:31 → MS3 04:15
PROVIDERS: Admitting Provider Hospitalist; Emergency Provider Emergency Medicine; Family Provider Family Medicine; PCP Family Medicine; Visit Provider Internal Medicine
DX: J06.9 Acute upper respiratory infection, unspecified (principal); J20.8 Acute bronchitis due to other specified organisms; R09.02 Hypoxemia; B97.81 Human metapneumovirus as the cause of diseases classified elsewhere; I12.9 Hypertensive chronic kidney disease with stage 1 through stage 4 chronic kidney disease, or unspecified chronic kidney disease; E11.22 Type 2 diabetes mellitus with diabetic chronic kidney disease; N18.3 Chronic kidney disease, stage 3 (moderate); E78.5 Hyperlipidemia, unspecified; F41.1 Generalized anxiety disorder; E66.9 Obesity, unspecified; K21.9 Gastro-esophageal reflux disease without esophagitis; K44.9 Diaphragmatic hernia without obstruction or gangrene; H81.09 Meniere's disease, unspecified ear; F32.9 Major depressive disorder, single episode, unspecified; Z79.4 Long term (current) use of insulin; Z79.01 Long term (current) use of anticoagulants; Z68.37 Body mass index [BMI] 37.0-37.9, adult; Z87.891 Personal history of nicotine dependence; Z86.718 Personal history of other venous thrombosis and embolism
CPT/HCPCS: 36415; 71045; 80048; 82962; 83036; 83605; 85025; 85610; 87040; 87070; 87205; 87449; 87633; 87804; 93005; 94640; 94664; 94668; 97162; 97166; 97530; 97535; 97802; 99285; J7030; A4216; J2405

== ENCOUNTER → 2018-08-22 09:49 | Outpatient (CLI) | payer MEDICARE, MEDICAID, SELFPAY ==
[2018-06-25 04:45] VITALS: BMI 37.4
[2018-08-22 12:17] LABS: Absolute Neutrophil Count 4.9 X10^3/uL (2.0-7.7); Basophil# 0.04 X10^3/uL; Basophil% 0.5 % (0-1); Eosinophil# 0.32 X10^3/uL; Eosinophils% 4.2 % (0-5); Hematocrit 39.3 % (37-47); Hemoglobin 12.5 g/dl (12.0-15.0); Lymphocyte % 19.5 % (19-41); Mean Corp Hgb Conc 31.8 g/gl (32-36); Mean Corpuscular Hgb 29.1 pg (27.0-32.0); Mean Corpuscular Volume 91.6 fL (81-99); Mean Platelet Vol. 11.6 fl (6.2-12.0); Monocyte# 0.85 X10^3/uL; Monocyte% 11.1 % (0-10); Neutrophil # 4.94 X10^3/uL (2.7-7.7); Neutrophil % 64.3 % (47-70); Platelet Count 207 K/mm3 (150-450); RBC Distribution Width CV 16.5 % (11.6-14.6); RBC Distribution Width SD 54.3 fl (35.1-43.9); Red Blood Count 4.29 M/mm3 (4.2-5.4); White Blood Count 7.7 K/mm3 (4.4-11.0)
[2018-08-22 12:20] LABS: POSITIVE COUNT NO; POSITIVE DIFFERENTIAL NO; POSITIVE MORPHOLOGY NO
[2018-08-22 12:36] LABS: ALB/GLOB Ratio 1.1 RATIO (0.9-2.4); AST(SGOT) 15 U/L (15-37); Alanine Aminotransfer ALT/SGPT 25 U/L (13-56); Albumin, Serum 3.7 g/dL (3.2-5.0); Alkaline Phosphatase 83 U/L (45-117); Anion Gap 4 (5-15); BUN 23 mg/dL (7-18); BUN/Creat Ratio 18.7 RATIO (10-20); Chloride 106 mmol/L (98-107); Creatinine, Serum 1.23 mg/dL (0.55-1.02); EST Glomerular Filtration Rate 45 mL/min (>60); Est Glom Filt Rate - Afr Amer 55 mL/min (>60); Globulin 3.4 g/dL (2.2-4.2); Glucose 240 mg/dL (74-106); Potassium 4.6 mmol/L (3.5-5.1); Protein, Total 7.1 g/dL (6.4-8.2); Sodium Level 139 mmol/L (136-145)
[2018-08-22 12:52] LABS: BNP,B-Type NATRIURETIC PEPTIDE 82.7 pg/mL (0-100)
== END ==
PROVIDERS: Family Provider Family Medicine; PCP Family Medicine; Visit Provider Family Medicine
DX: R05 Cough (principal); R06.01 Orthopnea; J44.9 Chronic obstructive pulmonary disease, unspecified; I10 Essential (primary) hypertension
CPT/HCPCS: 36415; 71046; 80053; 83880; 85025; 87070; 87077; 87186; 87205; 87633

== ENCOUNTER → 2018-08-22 10:07 | Outpatient (CLI) | payer MEDICARE, MEDICAID, SELFPAY ==
[2018-06-25 04:45] VITALS: BMI 37.4
--- NOTE | 2018-08-22 10:11 | RAD_ITS ---
STUDY: X-RAY CHEST REASON FOR EXAM: Female, 73 years old. Persistent cough TECHNIQUE: PA and lateral views of the chest. COMPARISON: 06/25/18 FINDINGS: The lungs are clear and expanded. There is no demonstrated pleural abnormality. Normal size heart. Normal mediastinum and hayder. Normal visualized pulmonary arteries. Normal visualized aortic arch and descending thoracic aorta. There are diffuse degenerative changes of the visualized thoracic spine. Normal visualized ribs, clavicles, and shoulders. There is no demonstrated abnormality of the visualized soft tissue structures of the upper abdomen. RAD/Chest PA and Lateral IMPRESSION: Normal x-ray examination of the chest. Electronically Signed: Loi Montana MD at 10:41 EDT , Service support ,
== END ==
PROVIDERS: Family Provider Family Medicine; PCP Family Medicine; Referring Provider Family Medicine; Visit Provider Family Medicine
DX: R05 Cough (principal)
CPT/HCPCS: 71046

== ENCOUNTER 2018-10-27 15:21 | Emergency (ER) | payer MEDICARE, MEDICAID, SELFPAY ==
[2018-06-25 04:45] VITALS: BMI 37.4
[2018-10-27 15:22] VITALS: BP 180/86; PULSE 81; RESP 17; TEMP 37; O2SAT 93; BMI 34.3
--- NOTE | 2018-10-27 15:53 | ED.DCSUM_ITS ---
History of Present Illness <Lis Hale - Last Filed: 10/27/18 16:28> Detail of Chief Complaint: R lateral ankle Informant: Patient Narrative: Patient presents to the ED with a wound to her right lateral ankle. 6 days ago, she accidentally hit this area on an ottoman in her bedroom. She states she has been babying it. She has been covering it, however states she has not been doing this recently. She has not been placing anything over the area. She did purchase some Dial antibacterial soap and has cleansed the area. Today, she was at a family cookout when her daughter noticed some purulent drainage from the area. She is concerned the wound may have become infected. Patient does have a history of diabetes. She denies any red streaking, fever, chills, nausea, or vomiting. <Lizzy Frye - Last Filed: 10/27/18 16:34> Chief Complaint: Wound Past Medical History - Family History Maternal Family History: Family History (Last Reviewed 06/25/18 @ 04:59 by Khadar Nicolas MD) Sister Lupus Arthritis Brother Colon cancer Cancer Arthritis Father Diabetes Heart disease Mother Hypertension Paternal Family History: Family History (Last Reviewed 06/25/18 @ 04:59 by Khadar Nicolas MD) Sister Lupus Arthritis Brother Colon cancer Cancer Arthritis Father Diabetes Heart disease Mother Hypertension <Lis Hale - Last Filed: 10/27/18 16:28> Surgical History: cholecystectomy, - - Smoking Status: Former smoker - Family History Maternal Family History: Family History (Last Reviewed 06/25/18 @ 04:59 by Khadar Nicolas MD) Sister Lupus Arthritis Brother Colon cancer Cancer Arthritis Father Diabetes Heart disease Mother Hypertension Family History: Reports: No pertinent history Paternal Family History: Family History (Last Reviewed 06/25/18 @ 04:59 by Khadar Nicolas MD) Sister Lupus Arthritis Brother Colon cancer Cancer Arthritis Father Diabetes Heart disease Mother Hypertension Family History: Reports: No pertinent history <Lizzy Frye - Last Filed: 10/27/18 16:34> - Allergies and Home Meds Allergies/Adverse Reactions: Allergies Penicillins Allergy (Verified 10/27/18 15:21) Angioedema rosiglitazone maleate [From Avandia] Allergy (Verified 10/27/18 15:21) hyperglycemia insulin detemir [From Levemir] Adverse Reaction (Verified 10/27/18 15:21) hyperglycemia prednisone Adverse Reaction (Verified 10/27/18 15:21) hyperglycemia HYPERGLYCEMIA Sulfa (Sulfonamide Antibiotics) Adverse Reaction (Verified 10/27/18 15:21) Unknown pt is unsure Primary Care Physician: Rufus Blanco DO [Primary Care Provider] - Review of Systems General: Denies: Chills, Fever, Sweats Eyes: Denies: Visual changes - bilaterally, Diplopia ENT: Denies: Rhinorrhea, Sore throat Cardiovascular: Denies: Chest pain, Palpitations Respiratory: Denies: Dyspnea, Cough, Dyspnea on exertion Gastrointestinal: Denies: Abdominal pain, Nausea, Vomiting, Diarrhea, Melena, Hematochezia Genitourinary: Denies: Dysuria, Hematuria, Frequency Musculoskeletal: Denies: Back pain, Extremity Pain Skin: Reports: Wounds. Denies: Rash Neurological: Denies: Headache, Weakness, Numbness <Lizzy Frye - Last Filed: 10/27/18 16:34> Physical Exam Vital Signs/Narrative: Vital Signs Temp Pulse Resp BP Pulse Ox 10/27/18 15:22 98.6 F 81 17 180/86 H 93 <Lis Hale - Last Filed: 10/27/18 16:28> Vital Signs/Narrative: Vital Signs Temp Pulse Resp BP Pulse Ox 10/27/18 15:22 98.6 F 81 17 180/86 H 93 General: Well nourished, Well developed, No Acute Distress Head: Normocephalic, Atraumatic Eyes: Perrl, EOMI ENT: Moist mucous membranes, No rhinorrhea Neck: Supple, Nontender Cardiovascular: Regular rate, Regular rhythm, No murmurs Respiratory: No distress, CTA bilaterally, Chest nontender Abdomen: Soft, Nontender, Nondistended, Normal bowel sounds Back: Nontender, Normal Inspection Extremities: Nontender, No edema, - - Full range of motion of bilateral lower ex tremities. Skin: No rash, - - 4 cm healing wound to the right lateral ankle with surrounding erythema and mild amount of serous purulent drainage. There is no lymphangitic streaking. No fluctuance concerning for drainable abscess. DP and PT pulses 2+. Normal capillary refill of bilateral lower extremities. Neurological: Alert, Oriented x3, Cranial nerves II-XII grossly intact, Normal Strength, Normal Sensation Psychological: Normal affect, Normal Mood <Lizzy Frye - Last Filed: 10/27/18 16:34> Diagnostic/Tx/Re-eval - Medical Decision Making Patient presents with an injury/wound to the right lower extremity that occurred about a week ago. Patient states that she tripped and bumped ottoman with her right leg. Patient thinks it may be there is been some slight increase in erythema to the area and she has had some seeping drainage from the wound. Patient is a diabetic. Patient's daughter saw the wound today and thought it may have some pus in it so she recommended patient be seen in the ER today. Patient denies any fevers. Physical exam-right leg-patient has a superficial skin abrasion/contusion right lower leg measuring approximately 3 x 2.5 cm. There is some mild serous weeping from the wound. Minimal surrounding erythema noted. Patient neurovascular intact distally. Exam otherwise unremarkable. Plan-patient will be started on Keflex. Area of erythema was outlined with marker. Patient advised to follow-up with primary care physician for wound check in 3 to 5 days. Patient advised to return if increased pain, redness, swelling, or conditions worsen anyway. Diagnosis-right lower extremity abrasion with cellulitis <Lis Hale - Last Filed: 10/27/18 16:28> - Medical Decision Making Presents to the ED with right lateral ankle wound with concern for secondary cellulitis. She does have a history of diabetes. On physical exam, patient does have a right lateral ankle wound with some surrounding erythema and some mild serous/purulent drainage. She has no systemic signs/symptoms of infection. At this time, I think it is safe for the patient be discharged home on a course of antibiotics. She will be started on a course of Keflex. She was instructed to follow-up with her PCP for wound check. She is educated on signs/symptoms to return to the ED. She was educated on proper wound care. She was provided discharge instructions. She is agreeable to plan. Disposition: Home stable Impression: Right lower extremity abrasion with secondary cellulitis. History of diabetes. <Lizzy Frye - Last Filed: 10/27/18 16:34> ED Disposition <Lis Hale - Last Filed: 10/27/18 16:28> <Lizzy Frye - Last Filed: 10/27/18 16:34> - Plan for ED Patient: Disposition: Home or Assisted Living Diagnosis: Cellulitis Instructions: Cellulitis Prescriptions: Cephalexin [Keflex] 500 mg PO Q6 #28 cap Prescription Printed Referrals: Rufus Blanco DO [Primary Care Provider] -
[2018-10-27 16:36] VITALS: RESP 18; O2SAT 97
== END 2018-10-27 16:37 | disposition home or self-care (01) ==
PROVIDERS: Emergency Provider Physician Assistant; Family Provider Family Medicine; PCP Family Medicine
DX: L03.115 Cellulitis of right lower limb (principal); E11.9 Type 2 diabetes mellitus without complications; Z88.0 Allergy status to penicillin; Z87.891 Personal history of nicotine dependence
CPT/HCPCS: 99282

== ENCOUNTER 2018-10-28 06:11 | Observation (INO) | payer MEDICARE, MEDICAID, SELFPAY ==
[2018-10-27 15:22] VITALS: BMI 34.3
[2018-10-28 06:12] VITALS: BP 187/77; PULSE 79; RESP 15; TEMP 36.8; O2SAT 92; BMI 37.4
--- NOTE | 2018-10-28 06:31 | ED.VIS.GI ---
History of Present Illness Informant: Patient - Abdominal Pain/Flank Pain Onset: Hours - 3 Context: Gradual Onset Timing: Continuous Quality: Aching Location: Diffuse Current Severity: Moderate Maximum Severity: Moderate Worsened by: Nothing Relieved by: Nothing - Nausea/Vomiting/Emesis GI Symptom: Nausea, Vomiting Quality: Nonbilious. Negative for: Blood streaks, Coffee ground, Hematemesis - Diarrhea/Melena/Hematochezia GI Symptom: Diarrhea Onset: Hours - 3 Stool Quality: Watery. Negative for: Black, Maroon, CHELSY per rectum Severity: Severe Episodes: 7 Associated Symptoms: Negative for: Dysuria, Hematuria Narrative: Patient was seen yesterday evening for a wound on her right lower extremity that seem to be getting infected, started on cephalexin, she has had 2 doses of it so far, woke up this morning with abdominal discomfort and has had 7 bouts of watery diarrhea in the past 3 hours. She has a history of C. difficile. She has been feeling lightheaded, no near syncope. She states the leg wound is already seeming better. She has not been taking a probiotic or eating yogurt, etc. <Shady Reveles - Last Filed: 10/28/18 07:16> <Renetta Olivier - Last Filed: 10/28/18 09:14> Chief Complaint: Nausea/Vomiting/Diarrhea - Past Medical History (1) Anxiety disorder Status: Chronic (2) Chronic renal failure, stage 3 (moderate) Status: Chronic (3) DVT of lower extremity (deep venous thrombosis) Status: Chronic Comment: on coumadin (4) Depression Status: Chronic (5) Diabetes mellitus, type 2 Status: Chronic (6) Dyslipidemia Status: Chronic (7) Essential hypertension Status: Chronic (8) Gastroesophageal reflux disease with hiatal hernia Status: Chronic (9) Menieres disease Status: Chronic <Shady Reveles - Last Filed: 10/28/18 07:16> Past Medical History Surgical History: cholecystectomy, - - Smoking Status: Never smoker - Family History Maternal Family History: Family History (Last Reviewed 06/25/18 @ 04:59 by Khadar Nicolas MD) Sister Lupus Arthritis Brother Colon cancer Cancer Arthritis Father Diabetes Heart disease Mother Hypertension Family History: Reports: No pertinent history Paternal Family History: Family History (Last Reviewed 06/25/18 @ 04:59 by Khadar Nicolas MD) Sister Lupus Arthritis Brother Colon cancer Cancer Arthritis Father Diabetes Heart disease Mother Hypertension Family History: Reports: No pertinent history <Shady Reveles - Last Filed: 10/28/18 07:16> - Family History Maternal Family History: Family History (Last Reviewed 06/25/18 @ 04:59 by Khadar Nicolas MD) Sister Lupus Arthritis Brother Colon cancer Cancer Arthritis Father Diabetes Heart disease Mother Hypertension Paternal Family History: Family History (Last Reviewed 06/25/18 @ 04:59 by Khadar Nicolas MD) Sister Lupus Arthritis Brother Colon cancer Cancer Arthritis Father Diabetes Heart disease Mother Hypertension <ZackthaisgretchenHumbertooralia - Last Filed: 10/28/18 09:14> - Allergies and Home Meds Allergies/Adverse Reactions: Allergies Penicillins Allergy (Verified 10/28/18 06:16) Angioedema rosiglitazone maleate [From Avandia] Allergy (Verified 10/28/18 06:16) hyperglycemia insulin detemir [From Levemir] Adverse Reaction (Verified 10/28/18 06:16) hyperglycemia prednisone Adverse Reaction (Verified 10/28/18 06:16) hyperglycemia HYPERGLYCEMIA Sulfa (Sulfonamide Antibiotics) Adverse Reaction (Verified 10/28/18 06:16) Unknown pt is unsure Primary Care Physician: Rufus Blanco DO [Primary Care Provider] - Review of Systems General: Denies: Chills, Fever, Sweats Eyes: Denies: Visual changes - bilaterally, Diplopia ENT: Denies: Rhinorrhea, Sore throat Cardiovascular: Denies: Chest pain, Palpitations Respiratory: Denies: Dyspnea, Cough, Dyspnea on exertion Gastrointestinal: Reports: Abdominal pain, Nausea, Vomiting, Diarrhea. Denies: Melena, Hematochezia Genitourinary: Denies: Dysuria, Hematuria, Frequency Musculoskeletal: Reports: Extremity Pain. Denies: Back pain Skin: Reports: Wounds. Denies: Rash Neurological: Denies: Headache, Weakness, Numbness <Shady Reveles - Last Filed: 10/28/18 07:16> Physical Exam Vital Signs/Narrative: Vital Signs Temp Pulse Resp BP Pulse Ox 10/28/18 06:12 98.3 F 79 15 187/77 H 92 Inital Vital Signs reviewed: Yes General: Well nourished, Well developed, No Acute Distress Head: Normocephalic, Atraumatic Eyes: Perrl, EOMI ENT: Moist mucous membranes, No rhinorrhea Neck: Supple, Nontender Cardiovascular: Regular rate, Regular rhythm, No murmurs Respiratory: No distress, CTA bilaterally, Chest nontender Abdomen: Soft, Nondistended, Normal bowel sounds, Tender - mildly diffusely. Negative for: Guarding, Rebound tenderness Back: Nontender, Normal Inspection Extremities: Nontender, No edema Skin: Normal color, Rash - scabbed lesion with surrounding cellulitis right gutierrez; extent of erythema edges are about 1-2cm away from line drawn around it, improved, - - no lymphangitis RLE Neurological: Alert, Oriented x3, Cranial nerves II-XII grossly intact, Normal Strength, Normal Sensation Psychological: Normal Mood, - - anxious <Shady Reveles - Last Filed: 10/28/18 07:16> Vital Signs/Narrative: Vital Signs Temp Pulse Resp BP Pulse Ox 10/28/18 07:09 159/72 H 10/28/18 06:12 98.3 F 79 15 187/77 H 92 <Renetta Olivier - Last Filed: 10/28/18 09:14> Diagnostic/Tx/Re-eval - Medical Decision Making Patient seen and evaluated shortly before shift change, will be checked out to oncoming emergency physician. Work-up is ordered and pending including C. difficile toxin. Patient was able to have a bowel movement and provide diarrhea sample here in the emergency department. It is liquid and not formed stool. It will be sent to the lab. I will also order an enteric pathogen panel. Given her history of C. difficile, even if her test is negative, her antibiotic may need to be discontinued, especially since her cellulitis is already improved. It is questionable if the antibiotic caused the wound improvement this early. It is also questionable if the antibiotic is causing this diarrhea this early, but it is possible. <Shady Reveles - Last Filed: 10/28/18 07:16> - Medical Decision Making On reevaluation she is resting comfortably in the back of her abdomen shows a nonspecific very diffuse abdominal crampiness with palpation no rebound guarding organ megaly or focal area of pain she has had multiple episodes of diarrhea here in the department she is only able to take ice chips see her labs please her C. difficile stool was otherwise negative given all the above continue IV fluids we have asked hospice here for the management admission Admit stable Final impression Nonspecific crampy abdominal pain, copious diarrhea, lower extremity sialitis, history of C. difficile <Renetta Olivier - Last Filed: 10/28/18 09:14> ED Disposition <Shady Reveles - Last Filed: 10/28/18 07:16> <Renetta Olivier - Last Filed: 10/28/18 09:14> - Plan for ED Patient: Diagnosis: Acute diarrhea, Diffuse abdominal pain Referrals: Rufus Blanco DO [Primary Care Provider] -
[2018-10-28 06:40] LABS: Absolute Lymphocyte Count 1.19 X10^3/ul (0.83-4.51); Absolute Neutrophil Count 10.2 X10^3/uL (2.0-7.7); Basophil# 0.01 X10^3/uL; Basophil% 0.1 % (0-1); Eosinophil# 0.22 X10^3/uL; Eosinophils% 1.7 % (0-5); Hematocrit 45.9 % (37-47); Hemoglobin 14.9 g/dl (12.0-15.0); Lymphocyte # 1.19 X10^3/ul (4.0); Lymphocyte % 9.4 % (19-41); Mean Corp Hgb Conc 32.5 g/gl (32-36); Mean Corpuscular Hgb 28.9 pg (27.0-32.0); Mean Corpuscular Volume 89.1 fL (81-99); Mean Platelet Vol. 10.7 fl (6.2-12.0); Monocyte% 8.7 % (0-10); Neutrophil # 10.15 X10^3/uL (2.7-7.7); Neutrophil % 79.9 % (47-70); Platelet Count 208 K/mm3 (150-450); RBC Distribution Width CV 16.2 % (11.6-14.6); RBC Distribution Width SD 53.3 fl (35.1-43.9); Red Blood Count 5.15 M/mm3 (4.2-5.4); White Blood Count 12.7 K/mm3 (4.4-11.0)
[2018-10-28] MEDS: proMETHazine 25 MG/ML Syringe 6.25 MG IV (06:45)
--- NOTE | 2018-10-28 06:45 | NURSING ---
CHEMISTRIES AND COAGS HEMOLIZED
[2018-10-28 07:00] LABS: POSITIVE COUNT NO; POSITIVE DIFFERENTIAL NO; POSITIVE MORPHOLOGY NO
[2018-10-28 07:09] VITALS: BP 159/72
[2018-10-28 07:14] LABS: International Normalized Ratio 2.5; Prothrombin Time (Protime)PT. 26.7 SECONDS (11.7-14.9)
[2018-10-28 07:18] LABS: ALB/GLOB Ratio 0.9 RATIO (0.9-2.4); AST(SGOT) 15 U/L (15-37); Alanine Aminotransfer ALT/SGPT 22 U/L (13-56); Albumin, Serum 3.4 g/dL (3.2-5.0); Alkaline Phosphatase 83 U/L (45-117); Anion Gap 1 (5-15); BUN 24 mg/dL (7-18); BUN/Creat Ratio 19.4 RATIO (10-20); Calcium,Total 8.5 mg/dL (8.5-10.1); Chloride 110 mmol/L (98-107); Creatinine, Serum 1.24 mg/dL (0.55-1.02); EST Glomerular Filtration Rate 45 mL/min (>60); Est Glom Filt Rate - Afr Amer 54 mL/min (>60); Estimated Creatinine Clearance 34.37 ml/min; Globulin 3.6 g/dL (2.2-4.2); Glucose 179 mg/dL (74-106); Potassium 4.5 mmol/L (3.5-5.1); Sodium Level 139 mmol/L (136-145)
[2018-10-28] MEDS: Morphine 2 MG/ML Syringe IV (07:31)
[2018-10-28] MEDS: Mag Hydrox/Al Hydrox/Simeth 30 ML UDC PO (08:34)
--- NOTE | 2018-10-28 09:08 | NURSING ---
DR VIVIEN REYES
--- NOTE | 2018-10-28 09:14 | HP.PCM_ITS ---
Problem List (1) Acute diarrhea Status: Acute (2) Diffuse abdominal pain Status: Acute (3) Chronic anticoagulation Status: Chronic (4) Menieres disease Status: Chronic (5) Gastroesophageal reflux disease with hiatal hernia Status: Chronic (6) Essential hypertension Status: Chronic (7) Dyslipidemia Status: Chronic (8) Diabetes mellitus, type 2 Status: Chronic Qualifiers: Diabetes mellitus complication status: with kidney complications (9) DVT of lower extremity (deep venous thrombosis) Status: Chronic Comment: on coumadin (10) Obesity (BMI 30-39.9) Status: Chronic (11) Depression Status: Chronic (12) Chronic renal failure, stage 3 (moderate) Status: Chronic (13) Anxiety disorder Status: Chronic Qualifiers: Anxiety disorder type: generalized anxiety disorder Qualified Code(s): F41.1 - Generalized anxiety disorder History of Present Illness Date of Admission: 10/28/18 Chief Complaint: Abdominal pain nausea and diarrhea The patient is a 73 year old F with past medical history significant previous DVTs on systemic anticoagulation with Coumadin, diabetes mellitus type 2 who was seen in the emergency department a day prior to her admission. Patient was diagnosed with cellulitis involving the right lower extremity discharged home on Keflex. Patient presented to the emergency department after taking 2 doses with significant complaint of abdominal pain with associated nausea. She also did experience several loose bowel movement. She presented back to the emergency department stool for C. difficile came back negative for C. difficile. In view of the severity of his symptoms he was admitted for subsequent management Past Medical History Past Medical History (Chronic Problems): Chronic Problems (Last Reviewed 10/28/18 @ 11:16 by Saman Blair MD) Chronic anticoagulation (Chronic) Menieres disease (Chronic) Gastroesophageal reflux disease with hiatal hernia (Chronic) Essential hypertension (Chronic) Dyslipidemia (Chronic) Diabetes mellitus, type 2 (Chronic) DVT of lower extremity (deep venous thrombosis) (Chronic) on coumadin Obesity (BMI 30-39.9) (Chronic) Depression (Chronic) Chronic renal failure, stage 3 (moderate) (Chronic) Anxiety disorder (Chronic) Medical History: Medical History (Last Reviewed 10/28/18 @ 11:16 by Saman Blair MD) Menieres disease (Chronic) H81.09 Gastroesophageal reflux disease with hiatal hernia (Chronic) K21.9, K44.9 Essential hypertension (Chronic) I10 Dyslipidemia (Chronic) E78.5 Diabetes mellitus, type 2 (Chronic) E11.9 DVT of lower extremity (deep venous thrombosis) (Chronic) I82.4Z9 on coumadin Obesity (BMI 30-39.9) (Chronic) E66.9 Depression (Chronic) F32.9 Hypomagnesemia (Inactive) E83.42 Chronic renal failure, stage 3 (moderate) (Chronic) N18.3 Dehydration (Inactive) E86.0 Acute gastroenteritis (Inactive) K52.9 Hyponatremia (Inactive) E87.1 Anxiety disorder (Chronic) F41.9 Allergies Penicillins Allergy (Verified 10/28/18 06:16) Angioedema rosiglitazone maleate [From Avandia] Allergy (Verified 10/28/18 06:16) hyperglycemia insulin detemir [From Levemir] Adverse Reaction (Verified 10/28/18 06:16) hyperglycemia prednisone Adverse Reaction (Verified 10/28/18 06:16) hyperglycemia HYPERGLYCEMIA Sulfa (Sulfonamide Antibiotics) Adverse Reaction (Verified 10/28/18 06:16) Unknown pt is unsure Home Medications: Ambulatory Orders Medication Instructions Recorded Warfarin [Coumadin] 2.5 mg PO DAILY 08/28/14 Lisinopril [Zestril] 20 mg PO BID #60 tab 02/22/15 Clonazepam [Klonopin] 1 mg PO TID PRN PRN 08/14/15 Famotidine [Pepcid] 20 mg PO QHS 08/14/15 amlodipine 5 mg tablet 5 mg PO QHS 08/28/17 fenofibrate nanocrystallized 145 145 mg PO QHS 08/28/17 mg tablet hydrochlorothiazide 25 mg tablet 25 mg PO QAM 08/28/17 simvastatin 40 mg tablet 40 mg PO QHS 08/28/17 Insulin NPH Human Isophane 30 unit SQ BID 06/25/18 [Humulin N] Insulin Regular, Human [Humulin R] unit SQ TID 06/25/18 Guaifenesin Dm [Robitussin Dm] 10 ml PO Q6H PRN PRN #120 udc 06/27/18 Prednisone 10 mg PO UD #30 tab 06/27/18 Cephalexin [Keflex] 500 mg PO Q6 #28 cap 10/27/18 Surgical History: Surgical History (Last Reviewed 10/28/18 @ 11:16 by Saman Blair MD) History of (Inactive) Z98.891 X3 S/P cholecystectomy (Inactive) Z90.49 Surgical History: cholecystectomy, - - Psychiatric History: Anxiety [employer]IST History: No pertinent [employer]IST history Smoking Status: Never smoker - *Family History Maternal Family History: Family History (Last Reviewed 10/28/18 @ 11:16 by Saman Blair MD) Sister Lupus Arthritis Brother Colon cancer Cancer Arthritis Father Diabetes Heart disease Mother Hypertension History Items: No pertinent history Paternal Family History: Family History (Last Reviewed 10/28/18 @ 11:16 by Saman Blair MD) Sister Lupus Arthritis Brother Colon cancer Cancer Arthritis Father Diabetes Heart disease Mother Hypertension Review of Systems Constitutional: Denies: Anorexia, Chills, Fever, Night Sweats, Weight Change HEENT: Denies: Head Aches, Sinus Congestion, Sinus Drainage Cardiovascular: Denies: Chest Pain, Orthopnea, Palpitations, Paroxysmal Noc. Dyspnea Respiratory: Denies: Cough, Shortness of breath at rest, Shortness of breath upon exertion, Sputum production Gastrointestinal: Reports: Abdominal Pain, Diarrhea, Nausea. Denies: Hematemesis, Hematochezia, Melena, Vomiting Genitourinary: Denies: Dysuria, Frequency, Hematuria, Urgency Musculoskeletal: Denies: Joint Pain, Joint Tenderness Skin: Denies: Rash Neurological: Denies: Focal weakness, Numbness, Tingling Psychiatric: Denies: Homicidal Ideations, Suicidal Ideations Hematologic/ Lymphatic: Denies: Easy Bruising, Easy Bleeding VTE Information - Inpt Only VTE Present on Admission: No VTE Mechan Device Prophylaxis: None VTE Pharm Prophylaxis ordered?: Yes Patient Problems: Active and Suspected Problems (Last Reviewed 10/28/18 @ 11:16 by Saman Blair MD) Acute diarrhea (Acute) Diffuse abdominal pain (Acute) Objective: GENERAL: cooperative HEENT: Atraumatic; EYES; Anicteric, Normal Conjunctiva NECK; supple, normal thyroid, RESPIRATORY: Diminished to auscultation bilaterally, CARDIOVASCULAR: Regular S1 S2, no audible murmurs GI: soft, non-tender, normoactive bowel sounds, : No Renal angle tenderness; EXTREMITIES: Area of erythema on the lateral aspect of the right lower extremity measuring about 2 cm in diameter. MUSCULOSKELETAL: No Joint Tenderness; no muscle waisting NEURO: Awake; no lateralizing signs. SKIN: As described above PSYCH; Normal affect - Physical Exam Vital Signs Temp Pulse Resp BP Pulse Ox 98.3 F 79 15 159/72 H 92 10/28/18 06:12 10/28/18 06:12 10/28/18 06:12 10/28/18 07:09 10/28/18 06:12 Oxygen Delivery Method Room Air Weight: 98.9 kg Body Mass Index (BMI) 37.4 Finger Stick Blood Glucose 115 Microbiology Past 72 Hours 10/28/18 06:50 C. difficile DNA Amplification - Final Stool Laboratory Tests Past 24 Hrs 10/28/18 10/28/18 10/28/18 06:15 06:15 06:15 WBC 12.7 H RBC 5.15 Hgb 14.9 Hct 45.9 MCV 89.1 MCH 28.9 MCHC 32.5 RDW 16.2 H RDW Differential 53.3 H Plt Count 208 MPV 10.7 Immature Gran % (Auto) 0.200 Neut % (Auto) 79.9 H Lymph % (Auto) 9.4 L [place] % (Auto) 8.7 Eos % (Auto) 1.7 Baso % (Auto) 0.1 Absolute Neuts (auto) 10.2 H Absolute Lymphs (auto) 1.19 Total Counted Not Reportable PT Cancelled INR Cancelled Sodium Cancelled Potassium Cancelled Chloride Cancelled Carbon Dioxide Cancelled Anion Gap Cancelled BUN Cancelled Creatinine Cancelled Estim Creat Clear Calc Cancelled Est GFR (MDRD) Af Amer Cancelled Est GFR (MDRD) Non-Af Cancelled BUN/Creatinine Ratio Cancelled Glucose Cancelled Calcium Cancelled Total Bilirubin Cancelled AST Cancelled ALT Cancelled Alkaline Phosphatase Cancelled Total Protein Cancelled Albumin Cancelled Globulin Cancelled Albumin/Globulin Ratio Cancelled 10/28/18 10/28/18 06:50 06:50 WBC RBC Hgb Hct MCV MCH MCHC RDW RDW Differential Plt Count MPV Immature Gran % (Auto) Neut % (Auto) Lymph % (Auto) [place] % (Auto) Eos % (Auto) Baso % (Auto) Absolute Neuts (auto) Absolute Lymphs (auto) Total Counted PT 26.7 H INR 2.5 Sodium 139 Potassium 4.5 Chloride 110 H Carbon Dioxide 28.0 Anion Gap 1 L BUN 24 H Creatinine 1.24 H Estim Creat Clear Calc 34.37 Est GFR (MDRD) Af Amer 54 L Est GFR (MDRD) Non-Af 45 L BUN/Creatinine Ratio 19.4 Glucose 179 H Calcium 8.5 Total Bilirubin 0.50 AST 15 ALT 22 Alkaline Phosphatase 83 Total Protein 7.0 Albumin 3.4 Globulin 3.6 Albumin/Globulin Ratio 0.9 Assessment/Plan All Active Problems (Last Reviewed 10/28/18 @ 11:16 by Saman Blair MD) Acute diarrhea (Acute) Diffuse abdominal pain (Acute) Bronchospasm with bronchitis, acute (Resolved) Viral URI (Resolved) Hypoxia (Resolved) Acute hypoxemic respiratory failure (Ruled-out) Vertigo (Resolved) Patient is a 73-year-old lady presented with intractable diarrhea with associated nausea and abdominal cramps 1. Abdominal pain with associated diarrhea and nausea do suspect side effects of patient antibiotics. Stool for C. difficile colitis came back negative. Patient has been admitted to regular nursing floor for symptomatic management 2. History of previous DVTs patient is on systemic anticoagulation with Coumadin with therapeutic INR 3. Diabetes mellitus type 2 with complication including chronic kidney disease discontinue patient home insulin regimen in addition to Accu-Cheks before meals and at bedtime with sliding scale coverage 4. Chronic kidney disease stage III kidney function at baseline 5. Recent cellulitis involving the right lower extremity patient is on Keflex. Patient appears to be improving 6. Dyslipidemia-patient is on statin therapy, continued at home dose 7. Essential hypertension-blood pressure controlled, home medications continued with dose adjustment as needed 2. History of GERD with hiatal hernia patient is on H2 blockers she was however complaining of significant reflux symptoms H2 blockers held patient placed on PPI 9. Obesity with BMI of 36.3 weight loss advised 10. Generalized anxiety disorder 11. DVT prophylaxis on Coumadin no need for additional measures Code Visit OBSV E&M: [id number] Initial observation care L3
--- NOTE | 2018-10-28 09:15 | NURSING ---
MED SURG KITTOE DIFFUSE ABD PAIN, COPIOUS DIARRHEA, LOWER EXTREMITY CELLULITIS
[2018-10-28 11:19] VITALS: BMI 36.3
[2018-10-28] MEDS: 0.9% Normal Saline 1,000 ML 150 ML IV ×3 (11:39→23:32)
[2018-10-28 11:43] VITALS: BP 153/67; PULSE 80; RESP 18; TEMP 37.4; O2SAT 93
[2018-10-28 11:49] VITALS: BMI 36.3
[2018-10-28 12:05] LABS: Bedside Glucose 157 mg/dL (70-110)
[2018-10-28] MEDS: Morphine 4 MG/ML Syringe IV (14:46)
[2018-10-28 16:46] LABS: Bedside Glucose 149 mg/dL (70-110)
[2018-10-28] MEDS: Albuterol 2.5 MG/3 ML VIAL.NEB. INHALATION (16:48)
[2018-10-28 16:49] VITALS: PULSE 78; RESP 21; O2SAT 94
[2018-10-28 17:45] VITALS: BP 140/63; PULSE 72; RESP 16; TEMP 37; O2SAT 92
[2018-10-28 21:32] VITALS: BP 148/70; PULSE 74; RESP 16; TEMP 36.8; O2SAT 95
[2018-10-28] MEDS: amLODIPine 5 MG Tablet PO (21:39)
[2018-10-28] MEDS: Lisinopril 20 MG Tablet PO (21:39)
[2018-10-28] MEDS: Famotidine 20 MG Tablet PO (21:39)
[2018-10-28] MEDS: Atorvastatin Calcium 20 MG Tablet PO (21:39)
[2018-10-28] MEDS: Fenofibrate 145 MG Tablet PO (22:03)
--- NOTE | 2018-10-28 22:30 | NURSING ---
this RN is taking over care for this patient.
[2018-10-28 23:11] LABS: Bedside Glucose 151 mg/dL (70-110)
[2018-10-29 03:30] VITALS: BP 137/67; PULSE 66; RESP 18; TEMP 36.7; O2SAT 93
[2018-10-29 03:54] VITALS: O2SAT 93
[2018-10-29 05:49] LABS: Absolute Lymphocyte Count 1.75 X10^3/ul (0.83-4.51); Absolute Neutrophil Count 3.1 X10^3/uL (2.0-7.7); Basophil# 0.01 X10^3/uL; Basophil% 0.2 % (0-1); Eosinophil# 0.25 X10^3/uL; Eosinophils% 4.3 % (0-5); Hematocrit 37.2 % (37-47); Hemoglobin 11.5 g/dl (12.0-15.0); Lymphocyte # 1.75 X10^3/ul (4.0); Lymphocyte % 29.8 % (19-41); Mean Corp Hgb Conc 30.9 g/gl (32-36); Mean Corpuscular Volume 90.5 fL (81-99); Mean Platelet Vol. 11.4 fl (6.2-12.0); Monocyte% 13.6 % (0-10); Neutrophil # 3.05 X10^3/uL (2.7-7.7); Neutrophil % 51.9 % (47-70); Platelet Count 164 K/mm3 (150-450); RBC Distribution Width CV 16.8 % (11.6-14.6); RBC Distribution Width SD 53.8 fl (35.1-43.9); Red Blood Count 4.11 M/mm3 (4.2-5.4); White Blood Count 5.9 K/mm3 (4.4-11.0)
[2018-10-29 05:51] LABS: POSITIVE COUNT NO; POSITIVE DIFFERENTIAL NO; POSITIVE MORPHOLOGY NO
[2018-10-29 05:58] LABS: International Normalized Ratio 2.7; Prothrombin Time (Protime)PT. 28.9 SECONDS (11.7-14.9)
[2018-10-29] MEDS: 0.9% Normal Saline 1,000 ML 150 ML IV (06:13)
[2018-10-29 06:26] LABS: Anion Gap 8 (5-15); BUN 16 mg/dL (7-18); BUN/Creat Ratio 17.5 RATIO (10-20); Calcium,Total 7.5 mg/dL (8.5-10.1); Chloride 113 mmol/L (98-107); Creatinine, Serum 0.92 mg/dL (0.55-1.02); EST Glomerular Filtration Rate 64 mL/min (>60); Est Glom Filt Rate - Afr Amer 77 mL/min (>60); Estimated Creatinine Clearance 46.33 ml/min; Glucose 168 mg/dL (74-106); Potassium 4.2 mmol/L (3.5-5.1); Sodium Level 143 mmol/L (136-145)
[2018-10-29 06:56] LABS: Bedside Glucose 163 mg/dL (70-110)
[2018-10-29 07:17] VITALS: O2SAT 95
[2018-10-29 07:21] VITALS: O2SAT 90
[2018-10-29] MEDS: Insulin Lispro 100 UNIT/ML INSULN.PEN SC (07:59)
[2018-10-29] MEDS: Lisinopril 20 MG Tablet PO (09:20)
[2018-10-29 09:23] VITALS: BP 128/44; PULSE 67; RESP 16; TEMP 36.4; O2SAT 92
--- NOTE | 2018-10-29 09:56 | DS.PCM_ITS ---
Discharge Date and Diagnosis - Problem List Patient Problems: Active and Suspected Problems (Last Reviewed 10/28/18 @ 11:16 by Saman Blair MD) Acute diarrhea (Acute) Diffuse abdominal pain (Acute) Date of Admission: 10/28/18 Date of Discharge: 10/29/18 - Primary Discharge Diagnosis Active and Suspected Problems (Last Reviewed 10/28/18 @ 11:16 by Saman Blair MD) Acute diarrhea (Acute) Diffuse abdominal pain (Acute) - Secondary Discharge Diagnosis Chronic Problems (Last Reviewed 10/28/18 @ 11:16 by Saman Blair MD) Chronic anticoagulation (Chronic) Menieres disease (Chronic) Gastroesophageal reflux disease with hiatal hernia (Chronic) Essential hypertension (Chronic) Dyslipidemia (Chronic) Diabetes mellitus, type 2 (Chronic) DVT of lower extremity (deep venous thrombosis) (Chronic) on coumadin Obesity (BMI 30-39.9) (Chronic) Depression (Chronic) Chronic renal failure, stage 3 (moderate) (Chronic) Anxiety disorder (Chronic) Hospital Course and Treatment Operations: None Summary of Care Provided: T Patient is a 73-year-old lady presented with intractable diarrhea with associa yosef nausea and abdominal cramps 1. Abdominal pain with associated diarrhea and nausea do suspect side effects of patient antibiotics. Stool for C. difficile colitis came back negative. Patient has been admitted to regular nursing floor for symptomatic management patient did improve with treatment discharged home the day after admission 2. History of previous DVTs patient is on systemic anticoagulation with Coumadin with therapeutic INR 3. Diabetes mellitus type 2 with complication including chronic kidney disease discontinue patient home insulin regimen in addition to Accu-Cheks before meals and at bedtime with sliding scale coverage 4. Chronic kidney disease stage III kidney function at baseline 5. Recent cellulitis involving the right lower extremity patient is on Keflex. Patient requested change in antibiotics in view of the significant side effect (nausea). Discussion was written for doxycycline 100 mg p.o. twice daily for 7 additional days 6. Dyslipidemia-patient is on statin therapy, continued at home dose 7. Essential hypertension-blood pressure controlled, home medications continued with dose adjustment as needed 2. History of GERD with hiatal hernia patient is on H2 blockers she was however complaining of significant reflux symptoms H2 blockers held patient placed on PPI 9. Obesity with BMI of 36.3 weight loss advised 10. Generalized anxiety disorder 11. DVT prophylaxis on Coumadin no need for additional measures Patient Problems: Active and Suspected Problems (Last Reviewed 10/28/18 @ 11:16 by Saman Blair MD) Acute diarrhea (Acute) Diffuse abdominal pain (Acute) - Physical Exam General: Alert HEENT: Atraumatic Oral: Moist Mucosa Neck: Supple Cardiovascular: Regular rate, Regular Rhythm Abdomen: Bowel Sounds Present Psych/Mental Status: Normal Affect Vital Signs Temp Pulse Resp BP Pulse Ox 97.5 F L 67 16 128/44 H 92 10/29/18 09:23 10/29/18 09:23 10/29/18 09:23 10/29/18 09:23 10/29/18 09:23 Oxygen Flow Rate (L/min) 2 Oxygen Delivery Method Room Air Weight: 95.9 kg Body Mass Index (BMI) 36.3 Finger Stick Blood Glucose 115 Intake and Output for Last 24 Hours 10/27/18 10/28/18 10/29/18 23:59 23:59 23:59 Intake Total 2077 / 2077 986 / 986 Balance 2077 986 / 986 Microbiology Past 72 Hours 10/28/18 06:54 Enteric Bacteriology - Final Stool 10/28/18 06:50 C. difficile DNA Amplification - Final Stool Laboratory Tests Past 24 Hrs 10/29/18 10/29/18 10/29/18 05:08 05:08 05:08 WBC 5.9 RBC 4.11 L Hgb 11.5 L Hct 37.2 MCV 90.5 MCH 28.0 MCHC 30.9 L RDW 16.8 H RDW Differential 53.8 H Plt Count 164 MPV 11.4 Immature Gran % (Auto) 0.200 Neut % (Auto) 51.9 Lymph % (Auto) 29.8 [place] % (Auto) 13.6 H Eos % (Auto) 4.3 Baso % (Auto) 0.2 Absolute Neuts (auto) 3.1 Absolute Lymphs (auto) 1.75 Total Counted Not Reportable PT 28.9 H INR 2.7 Sodium 143 Potassium 4.2 Chloride 113 H Carbon Dioxide 22.0 Anion Gap 8 BUN 16 Creatinine 0.92 Estim Creat Clear Calc 46.33 Est GFR (MDRD) Af Amer 77 Est GFR (MDRD) Non-Af 64 BUN/Creatinine Ratio 17.5 Glucose 168 H Calcium 7.5 L POC Glucose 07/06/1810/28/18 10/28/18 06:48 21:38 16:40 POC Glucose 163 H 151 H 149 H 10/28/18 11:56 POC Glucose 157 H Discharge Diet: 1800 Calorie Control Diet Home Medications: Medications to take at Discharge Warfarin [Coumadin] 2.5 mg PO DAILY 08/28/14 Lisinopril [Zestril] 20 mg PO BID #60 tab 02/22/15 Clonazepam [Klonopin] 1 mg PO TID PRN PRN 08/14/15 Famotidine [Pepcid] 20 mg PO QHS 08/14/15 amlodipine 5 mg tablet 5 mg PO QHS 08/28/17 fenofibrate nanocrystallized 145 mg tablet 145 mg PO QHS 08/28/17 hydrochlorothiazide 25 mg tablet 25 mg PO QAM 08/28/17 simvastatin 40 mg tablet 40 mg PO QHS 08/28/17 Insulin NPH Human Isophane [Humulin N] 30 unit SQ BID 06/25/18 Insulin Regular, Human [Humulin R] unit SQ TID 06/25/18 Guaifenesin Dm [Robitussin Dm] 10 ml PO Q6H PRN PRN #120 udc 06/27/18 Doxycycline [Vibramycin] 100 mg PO BID #14 cap 10/29/18 Following Prescrptions Were Given to Patient: Doxycycline [Vibramycin] 100 mg PO BID #14 cap Transmission Status: Pending to [facility] Primary Care Physician: Rufus Blanco DO [Primary Care Provider] - Please follow up with your Primary Care Physician in: [place] 3-5 DAYS Disposition: Home Minutes spent on discharge:: 32 Patient Condition:: Stable Medical Necessity - Tobacco Use Smoking Status: Never smoker Meaningful Use Info Meaningful Use Diagnoses (Choose all that apply): None applicable Code Visit OBSV E&M: [id number] Observation care discharge
--- NOTE | 2018-10-29 09:58 | DCINST_ITS ---
- Discharge Diagnoses Current Active Problems: Current Active and Chronic Problems (Last Reviewed 10/28/18 @ 11:16 by Saman Blair MD) Acute diarrhea (Acute) Diffuse abdominal pain (Acute) You will use the following diet at home:: Calorie/Carbohydrate Controlled (specify 1200, 1400, etc) - 1800 Your food should be the consistency of: Regular Discharge Activity: Return to Normal Activity Allergies/Adverse Reactions: Allergies Penicillins Allergy (Verified 10/28/18 06:16) Angioedema rosiglitazone maleate [From Avandia] Allergy (Verified 10/28/18 06:16) hyperglycemia insulin detemir [From Levemir] Adverse Reaction (Verified 10/28/18 06:16) hyperglycemia prednisone Adverse Reaction (Verified 10/28/18 06:16) hyperglycemia HYPERGLYCEMIA Sulfa (Sulfonamide Antibiotics) Adverse Reaction (Verified 10/28/18 06:16) Unknown pt is unsure Medications to take at Discharge Warfarin [Coumadin] 2.5 mg PO DAILY 08/28/14 Lisinopril [Zestril] 20 mg PO BID #60 tab 02/22/15 Clonazepam [Klonopin] 1 mg PO TID PRN PRN 08/14/15 Famotidine [Pepcid] 20 mg PO QHS 16 amlodipine 5 mg tablet 5 mg PO QHS 08/28/17 fenofibrate nanocrystallized 145 mg tablet 145 mg PO QHS 08/28/17 hydrochlorothiazide 25 mg tablet 25 mg PO QAM 08/28/17 simvastatin 40 mg tablet 40 mg PO QHS 18 Insulin NPH Human Isophane [Humulin N] 30 unit SQ BID 06/25/18 Insulin Regular, Human [Humulin R] unit SQ TID 06/25/18 Guaifenesin Dm [Robitussin Dm] 10 ml PO Q6H PRN PRN #120 udc 06/27/18 Doxycycline [Vibramycin] 100 mg PO BID #14 cap 10/29/18 The following prescriptions were given: Doxycycline [Vibramycin] 100 mg PO BID #14 cap Transmission Status: Pending to [facility] Primary Care Physician: Rufus Blanco DO [Primary Care Provider] - Please follow up with your Primary Care Physician in: IN 3-5 DAYS Test Results: Test results from this visit will be discussed in further detail at your follow-up appointment, if applicable. Proposed Discharge Date: 10/29/18
== END 2018-10-29 09:58 | disposition home or self-care (01) ==
LOC: ED 07:40 → PCU 09:45
PROVIDERS: Admitting Provider Internal Medicine; Emergency Provider Emergency Medicine; Family Provider Family Medicine; PCP Family Medicine; Visit Provider Internal Medicine
DX: R10.9 Unspecified abdominal pain (principal); R19.7 Diarrhea, unspecified; E11.22 Type 2 diabetes mellitus with diabetic chronic kidney disease; I12.9 Hypertensive chronic kidney disease with stage 1 through stage 4 chronic kidney disease, or unspecified chronic kidney disease; N18.3 Chronic kidney disease, stage 3 (moderate); L03.115 Cellulitis of right lower limb; E78.5 Hyperlipidemia, unspecified; K21.9 Gastro-esophageal reflux disease without esophagitis; K44.9 Diaphragmatic hernia without obstruction or gangrene; E66.9 Obesity, unspecified; F32.9 Major depressive disorder, single episode, unspecified; Z79.01 Long term (current) use of anticoagulants; Z79.899 Other long term (current) drug therapy; Z79.4 Long term (current) use of insulin; Z86.718 Personal history of other venous thrombosis and embolism; Z79.52 Long term (current) use of systemic steroids; Z68.36 Body mass index [BMI] 36.0-36.9, adult; Z71.3 Dietary counseling and surveillance; F41.1 Generalized anxiety disorder
CPT/HCPCS: 36415; 80048; 80053; 82962; 85025; 85610; 87493; 87506; 94640; 96361; 96374; 96375; 96376; 97166; 97802; 99218; 99285; J7030; J7040; A4216; G0378

== ENCOUNTER → 2018-11-08 10:58 | Outpatient (CLI) | payer MEDICARE, MEDICAID, SELFPAY ==
[2018-10-28 11:19] VITALS: BMI 36.3
== END ==
PROVIDERS: Family Provider Family Medicine; PCP Family Medicine; Visit Provider Family Medicine
DX: R35.0 Frequency of micturition (principal)
CPT/HCPCS: 87077; 87086; 87088

== ENCOUNTER 2018-11-14 18:39 | Emergency (ER) | payer MEDICARE, MEDICAID, SELFPAY ==
[2018-11-14 18:39] VITALS: BP 169/77; PULSE 88; RESP 20; TEMP 36.4; O2SAT 92; BMI 36.0
[2018-11-14 20:03] VITALS: O2SAT 94
--- NOTE | 2018-11-14 21:06 | CT_ITS ---
HISTORY: COUGH X MONTHS, HEMOPTYSIS TONIGH, HTN, DIAB TECHNIQUE: Helically acquired images of the chest were obtained without IV contrast. Number of images including paperwork: [id number]. A radiation dose optimization technique was used for this scan. COMPARISON: CT abdomen 06/13/2018 and 02/19/2015 FINDINGS: VASCULATURE: Vascular tortuosity. HEART/PERICARDIUM: Mildly enlarged heart. Coronary calcification. MEDIASTINUM: Unremarkable. ADENOPATHY: No pathologic appearing adenopathy. THYROID: Unremarkable visualized portions. LUNG PARENCHYMA: No consolidation or mass. Unchanged 3 x 5 mm left lower lobe lung nodule with adjacent scarring, consistent with benign finding. Nodule measuring 3 mm in the left upper lobe series 2 image 64. Nodule measuring 2 mm in the right lower lobe series 2 image 97. Mild peribronchial thickening. Minimal bibasilar atelectasis and/or scarring. PLEURAL SPACES: Unremarkable. UPPER ABDOMEN: Cholecystectomy. OSSEOUS AND SOFT TISSUE STRUCTURES: No acute skeletal findings. Degenerative changes. DEVICES: None. CT/Chest without Contrast IMPRESSION: Peribronchial thickening as can be seen with bronchitis or airways disease. Incidental findings above. Individualized dose optimization techniques were used for this CT. at [id number] Reported and signed by: Yaa Desouza MD Electronically Signed: Yaa Desouza MD at 22:17 EDT Tel , Service support ,
--- NOTE | 2018-11-14 21:07 | ED.VIS.GEN ---
History of Present Illness Chief Complaint: Cough Informant: Patient Narrative: Patient has been coughing with postnasal drip symptoms, mostly nonproductive, for about 5 months. She is on warfarin and has been taking it for the past 6 years because of bilateral DVTs and factor V Leiden deficiency, never had a PE, she had her INR checked today and it was 3.1. She started having hemoptysis today afterwards, and has never had that before. No known history of lung cancer. She does have COPD, states that she is having the same amount of intermittent dyspnea that she usually does, no worse today. No chest discomfort. No other systemic symptoms, no injury. She states it was a very scant amount of blood. She states that she does cough a lot. She is a former smoker but does have a heavy history, she quit 25 years ago. - Past Medical History (1) Anxiety disorder Status: Chronic (2) Chronic renal failure, stage 3 (moderate) Status: Chronic (3) DVT of lower extremity (deep venous thrombosis) Status: Chronic Comment: on coumadin (4) Depression Status: Chronic (5) Diabetes mellitus, type 2 Status: Chronic (6) Essential hypertension Status: Chronic (7) Gastroesophageal reflux disease with hiatal hernia Status: Chronic (8) Menieres disease Status: Chronic Past Medical History - Allergies and Home Meds Allergies/Adverse Reactions: Allergies Penicillins Allergy (Verified 11/14/18 18:43) Angioedema rosiglitazone maleate [From Avandia] Allergy (Verified 11/14/18 18:43) hyperglycemia cephalexin [From Keflex] Adverse Reaction (Verified 11/14/18 18:46) Diarrhea doxycycline Adverse Reaction (Verified 11/14/18 18:46) Diarrhea insulin detemir [From Levemir] Adverse Reaction (Verified 11/14/18 18:43) hyperglycemia prednisone Adverse Reaction (Verified 11/14/18 18:43) hyperglycemia HYPERGLYCEMIA Sulfa (Sulfonamide Antibiotics) Adverse Reaction (Verified 11/14/18 18:43) Unknown pt is unsure Primary Care Physician: Rufus Blanco DO [Primary Care Provider] - Surgical History: cholecystectomy, - - Smoking Status: Former smoker - Family History Maternal Family History: Family History (Last Reviewed 10/28/18 @ 11:16 by Saman Blair MD) Sister Lupus Arthritis Brother Colon cancer Cancer Arthritis Father Diabetes Heart disease Mother Hypertension Family History: Reports: No pertinent history Paternal Family History: Family History (Last Reviewed 10/28/18 @ 11:16 by Saman Blair MD) Sister Lupus Arthritis Brother Colon cancer Cancer Arthritis Father Diabetes Heart disease Mother Hypertension Family History: Reports: No pertinent history Review of Systems General: Denies: Chills, Fever, Sweats Eyes: Denies: Visual changes - bilaterally, Diplopia ENT: Reports: Sore throat - Mild, chronic. Denies: Bilateral ear pain, Rhinorrhea Cardiovascular: Denies: Chest pain, Palpitations Respiratory: Reports: Dyspnea - Chronic, at baseline, Cough, Sputum - Moderate assist today. Denies: Dyspnea on exertion Gastrointestinal: Denies: Abdominal pain, Nausea, Vomiting, Diarrhea, Melena, Hematochezia Genitourinary: Denies: Dysuria, Hematuria, Frequency Musculoskeletal: Denies: Back pain, Swelling, Extremity Pain Skin: Denies: Rash, Wounds Neurological: Denies: Headache, Weakness, Numbness Physical Exam Vital Signs/Narrative: Vital Signs Temp Pulse Resp BP Pulse Ox 11/14/18 18:39 97.6 F L 88 20 H 169/77 H 92 Inital Vital Signs reviewed: Yes General: Well nourished, Well developed, No Acute Distress Head: Normocephalic, Atraumatic Eyes: Perrl, EOMI ENT: Moist mucous membranes, No rhinorrhea, - - Posterior oropharynx is clear. Negative for: Sinus tenderness Neck: Supple, Nontender, No lymphadenopathy Cardiovascular: Regular rate, Regular rhythm, No murmurs Respiratory: No distress, CTA bilaterally, Chest nontender Abdomen: Soft, Nontender, Nondistended, Normal bowel sounds Back: Nontender, Normal Inspection Extremities: Nontender, No edema. Negative for: Calf Tenderness Skin: Normal color, No rash, No Trauma Neurological: Alert, Oriented x3, Cranial nerves II-XII grossly intact, Normal Strength, Normal Sensation Psychological: Normal affect, Normal Mood Diagnostic/Tx/Re-eval Clinical Impression(s) from Imaging Studies Chest CT 11/14/18 21:06 IMPRESSION: Peribronchial thickening as can be seen with bronchitis or airways disease. Incidental findings above. Individualized dose optimization techniques were used for this CT. at 2217 Reported and signed by: Yaa Desouza MD Electronically Signed: Yaa Desouza MD at 22:17 EDT Tel , Service support , - Medical Decision Making Patient has a very reassuring exam. Her INR was checked today and was 3.1 according to the patient, and she has risk for lung cancer. Therefore instead of obtaining a chest x-ray, I thought it would be more utilitarian to obtain a CT of the chest which we performed, it showed a small nodule, some peribronchial thickening, but no mediastinal lymphadenopathy or masses suspicious for carcinoma, or infiltrates. Given this, certainly a minor mucosal tear is possible as etiology for the bleeding. She should still follow-up. I will refer her to pulmonology. I would advise that she hold her 1 day of warfarin, and to return to the ER for any significant bleeding. She is comfortable with that plan. ED Disposition - Plan for ED Patient: Disposition: Home or Assisted Living Diagnosis: Cough with hemoptysis, COPD (chronic obstructive pulmonary disease), Anticoagulated on warfarin Instructions: Hemoptysis Referrals: Rufus Blanco DO [Primary Care Provider] - Candelario Skinner DO [STAFF PHYSICIAN] - Additional Instructions: Hold your next dose of warfarin, then take as prescribed.
[2018-11-14] MEDS: Albuterol 2.5 MG/3 ML VIAL.NEB. INHALATION (21:17)
[2018-11-14 21:18] VITALS: PULSE 84; RESP 20
[2018-11-14 22:45] VITALS: BP 133/84; PULSE 72; RESP 15; O2SAT 95
== END 2018-11-14 22:46 | disposition home or self-care (01) ==
PROVIDERS: Emergency Provider Emergency Medicine; Family Provider Family Medicine; PCP Family Medicine
DX: R04.2 Hemoptysis (principal); J44.9 Chronic obstructive pulmonary disease, unspecified; Z79.01 Long term (current) use of anticoagulants; Z90.49 Acquired absence of other specified parts of digestive tract; Z87.891 Personal history of nicotine dependence; Z88.0 Allergy status to penicillin; Z88.1 Allergy status to other antibiotic agents; Z88.2 Allergy status to sulfonamides; F41.9 Anxiety disorder, unspecified; I12.9 Hypertensive chronic kidney disease with stage 1 through stage 4 chronic kidney disease, or unspecified chronic kidney disease; N18.3 Chronic kidney disease, stage 3 (moderate); F32.9 Major depressive disorder, single episode, unspecified; K21.9 Gastro-esophageal reflux disease without esophagitis; K44.9 Diaphragmatic hernia without obstruction or gangrene; Z86.718 Personal history of other venous thrombosis and embolism; E11.22 Type 2 diabetes mellitus with diabetic chronic kidney disease; H81.09 Meniere's disease, unspecified ear; D68.51 Activated protein C resistance
CPT/HCPCS: 71250; 94640; 99282

== ENCOUNTER → 2018-11-19 07:17 | Outpatient (CLI) | payer MEDICARE, MEDICAID, SELFPAY ==
[2018-11-14 18:39] VITALS: BMI 36.0
--- NOTE | 2018-11-19 13:06 | PFTCOMP_ITS ---
COMPLETE PULMONARY FUNCTION TEST INTERPRETATION Brief HPI: Patient is a 73 year old female, currently under the care of Dr. Blanco, who presents to [facility] for complete pulmonary function tests secondary to diagnosis of COPD. Respiratory therapist reports good effort and reproducible results. Interpretation: Forced expiration spirometry shows a moderately severe large airways obstructive ventilatory defect with an FEV1 of 56% predicted. There is a significant bronchodilator response in FVC by strict ATS criteria. Spirograms are of good quality and plateau slowly, indicating slowly emptying areas of the lungs. The respiratory flow volume loop shows decreased expiratory flow rates at all lung volumes consistent with airway obstruction. Lung volumes by body plethysmography show a normal total lung capacity at 4.14 L, 90% predicted. FRC and RV are elevated out of proportion. Lung volume measurements are consistent with air-trapping. Diffusion capacity by carbon monoxide is decreased at 48% predicted. The airway resistance is elevated. No previous pulmonary function tests were available for review. Impression: Partially reversible moderately severe large airways obstructive ventilatory defect resulting in air trapping and a symmetric reduction diffusing capacity, consistent with a diagnosis of COPD.
== END ==
PROVIDERS: Family Provider Family Medicine; PCP Family Medicine; Referring Provider Family Medicine; Visit Provider Family Medicine
DX: J44.9 Chronic obstructive pulmonary disease, unspecified (principal)
CPT/HCPCS: 94060; 94726; 94729

== ENCOUNTER → 2018-12-11 12:30 | Outpatient (CLI) | payer MEDICARE, MEDICAID, SELFPAY ==
[2018-11-20 10:45] VITALS: BMI 36.0
[2018-12-11 14:27] VITALS: PULSE 100; PULSE 79; PULSE 80; PULSE 82; PULSE 94; PULSE 97; O2SAT 93; O2SAT 94; O2SAT 95; O2SAT 96
--- NOTE | 2018-12-12 10:21 | WT_ITS ---
PSN 6 Minute Walk Test - 6 Minute Walk Test 6 Minute Walk Test: 6 Minute Walk Test PSN:6-Minute Walk Test Start: 12/11/18 14:27 Freq: Status: Active Protocol: [id number].6MINW Document 12/11/18 14:27 COUNT INCLUDES THE [facility] (Rec: 12/11/18 14:34 COUNT INCLUDES THE [facility] [id number]) 6 Minute Walk Test Date Performed 12/11/18 Time Performed 12:30 Height 5 ft 4 in Weight: 210 lb Weight in Pounds 210.[address]: Luther Calderon Assistive device used: Walker Pre-test Oxygen Delivery Method Room Air Pulse Ox (%) 94 Pulse Rate (60-100 beats/min) 79 Dyspnea Chantal Scale (0-10) 0 Number of Rests Taken 0 1st minute Oxygen Delivery Method Room Air Pulse Ox (%) 93 Pulse Rate (60-100 beats/min) 82 Dyspnea Chantal Scale (0-10) 0 Number of Rests Taken 0 2nd minute Oxygen Delivery Method Room Air Pulse Ox (%) 95 Pulse Rate (60-100 beats/min) 97 Dyspnea Chantal Scale (0-10) 1 Number of Rests Taken 0 3rd minute Oxygen Delivery Method Room Air Pulse Ox (%) 94 Pulse Rate (60-100 beats/min) 100 Dyspnea Chantal Scale (0-10) 1 Number of Rests Taken 0 4th minute Oxygen Delivery Method Room Air Pulse Ox (%) 96 Pulse Rate (60-100 beats/min) 97 Dyspnea Chantal Scale (0-10) 1 Number of Rests Taken 0 5th minute Oxygen Delivery Method Room Air Pulse Ox (%) 95 Pulse Rate (60-100 beats/min) 94 Dyspnea Chantal Scale (0-10) 1 Number of Rests Taken 0 6th minute Oxygen Delivery Method Room Air Pulse Ox (%) 94 Pulse Rate (60-100 beats/min) 100 Dyspnea Chantal Scale (0-10) 1 Number of Rests Taken 0 Post-test Oxygen Delivery Method Room Air Pulse Ox (%) 96 Pulse Rate (60-100 beats/min) 80 Dyspnea Chantal Scale (0-10) 0 Full Laps Walked 10 Partial Lap, Number of Tiles Walked 32 Total Distance Walked (ft) 622 - Interpretation Interpretation: The patient ambulated 622 feet over the course of 6 minutes beginning on room air with the use of a walker. Pretesting oxygen saturation was noted to be 94% on room air. With ambulation, the aidan oxygen saturation was 93%. Although there was evidence of impaired walk distance, there was no significant exertional oxygen desaturation. - Recommendations Recommendations: There is no indication for the use of supplemental oxygen at this time.
== END ==
PROVIDERS: Family Provider Family Medicine; PCP Family Medicine; Referring Provider Internal Medicine Critical Care Medicine; Visit Provider Internal Medicine Critical Care Medicine
DX: J44.9 Chronic obstructive pulmonary disease, unspecified (principal)
CPT/HCPCS: 94618

== ENCOUNTER → 2019-03-17 06:59 | Outpatient (CLI) | payer MEDICARE, MEDICAID, SELFPAY ==
[2018-11-20 10:45] VITALS: BMI 36.0
[2019-02-10 08:22] VITALS: BMI 37.2
[2019-03-17 07:43] LABS: Absolute Lymphocyte Count 2.17 X10^3/uL (0.83-4.51); Absolute Neutrophil Count 4.3 X10^3/uL (2.0-7.7); Basophil# 0.06 X10^3/uL; Basophil% 0.8 % (0-1); Eosinophil# 0.25 X10^3/uL; Eosinophils% 3.3 % (0-5); Hematocrit 39.8 % (37-47); Hemoglobin 12.7 g/dL (12.0-15.0); Lymphocyte # 2.17 X10^3/ul (4.0); Lymphocyte % 28.8 % (19-41); Mean Corp Hgb Conc 31.9 g/dL (32-36); Mean Corpuscular Hgb 29.6 pg (27.0-32.0); Mean Corpuscular Volume 92.8 fL (81-99); Mean Platelet Vol. 11.1 fl (6.2-12.0); Monocyte# 0.75 X10^3/uL; NRBC Flagged by Analyzer 0 % (0-5); Neutrophil # 4.27 X10^3/uL (2.7-7.7); Neutrophil % 56.7 % (47-70); Platelet Count 193 K/mm3 (150-450); RBC Distribution Width CV 15.5 % (11.6-14.6); RBC Distribution Width SD 52.6 fl (35.1-43.9); Red Blood Count 4.29 M/mm3 (4.2-5.4); White Blood Count 7.5 K/mm3 (4.4-11.0)
[2019-03-17 08:03] LABS: Microalbumin:Creatinine Ratio 135.4 mg/g CRE (<30 mg/g CRE)
[2019-03-17 08:05] LABS: AST(SGOT) 12 U/L (15-37); Alanine Aminotransfer ALT/SGPT 18 U/L (13-56); Albumin, Serum 3.5 g/dL (3.2-5.0); Alkaline Phosphatase 90 U/L (45-117); Anion Gap 5 (5-15); BUN 21 mg/dL (7-18); BUN/Creat Ratio 14.2 RATIO (10-20); Chloride 110 mmol/L (98-107); Cholesterol 143 mg/dL (200); Creatinine, Serum 1.48 mg/dL (0.55-1.02); EST Glomerular Filtration Rate 37 mL/min (>60); Est Glom Filt Rate - Afr Amer 44 mL/min (>60); Globulin 3.6 g/dL (2.2-4.2); Glucose 189 mg/dL (74-106); High Density Lipoprotein 37 mg/dL; Potassium 5.2 mmol/L (3.5-5.1); Protein, Total 7.1 g/dL (6.4-8.2); Sodium Level 142 mmol/L (136-145); Triglycerides 278 mg/dL; Very Low Density Lipoprotein 56 mg/dL (5-40)
[2019-03-17 08:35] LABS: Hemoglobin A1c 8.1 % (4.2-6.3)
== END ==
LOC: LAB.FUTURE 07:28 → LAB 07:28
PROVIDERS: Family Provider Family Medicine; PCP Family Medicine; Referring Provider Family Medicine; Visit Provider Family Medicine
DX: E11.3299 Type 2 diabetes mellitus with mild nonproliferative diabetic retinopathy without macular edema, unspecified eye (principal); E11.65 Type 2 diabetes mellitus with hyperglycemia; I10 Essential (primary) hypertension; Z51.81 Encounter for therapeutic drug level monitoring
CPT/HCPCS: 36415; 80053; 80061; 82043; 82570; 83036; 85025

== ENCOUNTER 2019-03-30 16:50 | Emergency (ER) | payer MEDICARE, MEDICAID, SELFPAY ==
[2019-02-10 08:22] VITALS: BMI 37.2
[2019-03-30 16:52] VITALS: BP 107/69; PULSE 79; RESP 26; TEMP 36.8; O2SAT 94; BMI 35.6
--- NOTE | 2019-03-30 16:57 | EKG12_ITS ---
Test Reason : SOB Blood Pressure : / mmHG Vent. Rate : 077 BPM Atrial Rate : 077 BPM P-R Int : 140 ms QRS Dur : 082 ms QT Int : 374 ms P-R-T Axes : 054 010 045 degrees QTc Int : 423 ms Normal sinus rhythm Nonspecific ST abnormality Abnormal ECG Confirmed by LEE TORRES, LIZETTE ([id number]), scientific editor SHEELA CAAL ([id number]) on 03/31/2019 2:58:45 PM Referred By: EBONIE/KHADRA Confirmed By:LIZETTE HOWARD MD
[2019-03-30 17:02] VITALS: O2SAT 97
[2019-03-30 17:19] LABS: Absolute Lymphocyte Count 1.54 X10^3/uL (0.83-4.51); Absolute Neutrophil Count 3.8 X10^3/uL (2.0-7.7); Basophil# 0.03 X10^3/uL; Basophil% 0.4 % (0-1); Eosinophil# 0.29 X10^3/uL; Eosinophils% 4.3 % (0-5); Hemoglobin 12.6 g/dL (12.0-15.0); Lymphocyte # 1.54 X10^3/ul (4.0); Mean Corp Hgb Conc 32.3 g/dL (32-36); Mean Corpuscular Hgb 29.8 pg (27.0-32.0); Mean Corpuscular Volume 92.2 fL (81-99); Mean Platelet Vol. 10.8 fl (6.2-12.0); Monocyte# 1.01 X10^3/uL; Monocyte% 15.1 % (0-10); NRBC Flagged by Analyzer 0 % (0-5); Neutrophil # 3.81 X10^3/uL (2.7-7.7); Neutrophil % 56.8 % (47-70); Platelet Count 182 K/mm3 (150-450); RBC Distribution Width CV 15.9 % (11.6-14.6); RBC Distribution Width SD 53.5 fl (35.1-43.9); Red Blood Count 4.23 M/mm3 (4.2-5.4); White Blood Count 6.7 K/mm3 (4.4-11.0)
[2019-03-30 17:20] VITALS: PULSE 72; RESP 16; O2SAT 94
[2019-03-30] MEDS: Ipratropium/Albuterol Sulfate 3 ML AMPUL.NEB INHALATION (17:20)
--- NOTE | 2019-03-30 17:20 | RAD_ITS ---
STUDY: X-RAY CHEST REASON FOR EXAM: Female, 73 years old. Shortness breath and cough TECHNIQUE: Frontal and lateral views of the chest. COMPARISON: 08/22/2018. FINDINGS: The lungs are clear and expanded. There is no demonstrated pleural abnormality. Normal size heart. Normal mediastinum and hayder. Normal visualized pulmonary arteries. Normal visualized aortic arch and descending thoracic aorta. There are diffuse degenerative changes of the visualized thoracic spine. Normal visualized ribs, clavicles, and shoulders. There is no demonstrated abnormality of the visualized soft tissue structures of the upper abdomen. RAD/Chest PA and Lateral IMPRESSION: No acute chest disease. Electronically Signed: Amari Pablo MD at 17:55 EST , Service support ,
[2019-03-30 17:25] LABS: International Normalized Ratio 1.8; Prothrombin Time (Protime)PT. 20.4 SECONDS (11.7-14.9)
[2019-03-30] MEDS: 0.9% Normal Saline 1,000 ML 150 ML IV (17:35)
[2019-03-30] MEDS: MethylPREDNISolone 125 MG/2 ML Vial 60 MG IV (17:35)
[2019-03-30 17:53] LABS: Anion Gap 7 (5-15); BUN 24 mg/dL (7-18); BUN/Creat Ratio 18.5 RATIO (10-20); Calcium,Total 8.8 mg/dL (8.5-10.1); Chloride 111 mmol/L (98-107); EST Glomerular Filtration Rate 43 mL/min (>60); Est Glom Filt Rate - Afr Amer 51 mL/min (>60); Estimated Creatinine Clearance 34.16 ml/min; Glucose 220 mg/dL (74-106); Sodium Level 143 mmol/L (136-145)
--- NOTE | 2019-03-30 18:21 | ED.VISSUMM ---
- ER Visit Summary Date of Service: 03/30/19 Chief Complaint: [Cough and shortness of breath] History of Present Illness: The patient is a 73 F [the emergency department with complaint of a cough that started yesterday. Patient states most of the time cough is mostly dry. She has not had a fever. She feels short of breath and congested in her nose and face. Patient has a history of diabetes, hypertension, high cholesterol, and COPD. Patient states that she thinks she may have picked something up from her granddaughter. She is not on home oxygen.] Nuys any chest pain. Physical Examination: [HEENT-PERRLA, EOMI. Cranial nerves II through XII grossly intact. TMs clear. Mucous membranes moist. No adenopathy. Nasal turbinates slightly edematous. Cardiovascular-regular rate and rhythm without murmur or ectopy Lungs-good aeration bilaterally. Patient has some faint expiratory wheezes noted. No accessory muscle use or retractions. Abdomen-normoactive bowel sounds, soft, nontender, no rebound or rigidity, no peritoneal signs. Extremities-intact ?4, normal range of motion, normal pulses, atraumatic] Test Results: [EKG obtained arrival shows sinus rhythm with a ventricular rate of [address] changes. CBC with differential and a 6.7, hemoglobin 12.6, hematocrit 39, plates 182. Chemistries unremarkable. BUN was 24 and creatinine 1.3. Troponin is 0.036. Influenza screen was negative. Chest x-ray showed nothing acute.] Emergency Department Course and Treatment: [He was given a DuoNeb aerosol. Patient given Solu-Medrol 60 mg IV.] Patient ambulated in the department with pulse ox in O2 sat stayed above 93%. Treatment Plan: [Patient will be started on Robitussin-DM for her cough which she is had in the past and is tolerated well. Patient also will be given prednisone for 3 days. Patient to continue with her aerosols as needed.] Disposition: [Discharged home in stable condition] Impression: [Asthmatic bronchitis] This note was generated with [employer] dictation software. It may contain incorrect words, spelling, and punctuation that were not noted in review of the chart prior to signing ED Disposition - Plan for ED Patient: Referrals: Rufus Blanco DO [Primary Care Provider] -
--- NOTE | 2019-03-30 18:23 | ED.DEP ---
ED Disposition - Plan for ED Patient: Instructions: BRONCHITIS, No Antibiotic (Adult), BRONCHITIS with Wheezing (Adult) Prescriptions: Prednisone [Deltasone] 20 mg PO BID #6 tab Prescription Printed Guaifenesin Dm [Robitussin Dm] 10 ml PO Q6H PRN PRN #120 ml PRN Reason: Cough Prescription Printed Referrals: Rufus Blanco DO [Primary Care Provider] - Luther Calderon MD [STAFF PHYSICIAN] - 3-5 Days
[2019-03-30 18:24] VITALS: BP 168/78; PULSE 73; RESP 20; O2SAT 94
== END 2019-03-30 18:43 | disposition home or self-care (01) ==
PROVIDERS: Emergency Provider Emergency Medicine; Family Provider Family Medicine; PCP Family Medicine
DX: J44.1 Chronic obstructive pulmonary disease with (acute) exacerbation (principal); E11.9 Type 2 diabetes mellitus without complications; I10 Essential (primary) hypertension; E78.00 Pure hypercholesterolemia, unspecified; R06.02 Shortness of breath; K21.9 Gastro-esophageal reflux disease without esophagitis; Z90.49 Acquired absence of other specified parts of digestive tract
CPT/HCPCS: 71046; 80048; 84484; 85025; 85610; 87804; 93005; 94640; 96361; 96374; 99284; J7030; A4216

== ENCOUNTER 2019-04-02 13:51 | Inpatient (IN) | payer MEDICARE, MEDICAID, SELFPAY ==
[2019-04-02] VITALS (10 sets, daily range): BP systolic 146–181; BP diastolic 57–77; PULSE 70–88; RESP 17–21; TEMP 36.4–36.7; O2SAT 88–97; BMI 35.6; BMI 35.8
--- NOTE | 2019-04-02 13:55 | RAD_ITS ---
STUDY: X-RAY CHEST REASON FOR EXAM: Female, 73 years old. Cough and shortness of breath. TECHNIQUE: Single AP portable view of the chest. COMPARISON: Comparison is made with prior study dated March 30, 2019. FINDINGS: EKG electrodes are seen. The lungs are clear and expanded. Scattered calcified granulomas. There is no demonstrated pleural abnormality. Normal size heart. Normal mediastinum and hayder. Normal visualized pulmonary arteries. There is atherosclerotic calcification of the aortic arch with tortuosity. There are degenerative changes of the visualized thoracic spine. Normal visualized ribs, clavicles, and shoulders. There is no demonstrated abnormality of the visualized soft tissue structures of the upper abdomen. RAD/Chest 1 View (Portable) IMPRESSION: No acute abnormality is present. Electronically Signed: Ketan Price, at 14:48 EST , Service support ,
--- NOTE | 2019-04-02 13:55 | EKG12_ITS ---
Test Reason : SOB Blood Pressure : / mmHG Vent. Rate : 074 BPM Atrial Rate : 074 BPM P-R Int : 142 ms QRS Dur : 080 ms QT Int : 390 ms P-R-T Axes : 059 010 021 degrees QTc Int : 432 ms Normal sinus rhythm Nonspecific ST abnormality Abnormal ECG Confirmed by TIN TORRES, SCOTT ([id number]), acquisitions editor SHEELA CAAL ([id number]) on 04/06/2019 9:50:13 AM Referred By: Addis Florez Confirmed By:CLIVE CASTLE MD
--- NOTE | 2019-04-02 14:20 | CM.ED ---
SOCIAL WORK INFORMANT: NURSESHANNAN REASON FOR REFERRAL: SUPPORT UPDATED BY SHANNAN PALACIOS PATIENT'S IS ADMITTED ON PCU. PATIENT TEARFUL AND WORRIED ABOUT . PATIENT HAVING OWN HEALTH ISSUES. REQUESTED THIS WORKER FOLLOW UP FOR EMOTIONAL SUPPORT. MET WITH PATIENT AND DAUGHTER, EARL IN ROOM. INTRODUCED ROLE AND REASON FOR REFERRAL. PATIENT STATES WAS TO HAVE HEART CATH TODAY AND CALLED HER THIS MORNING TO DISCUSS HIS WISHES AND TELL HER I LOVE YOU. PATIENT TEARFUL. MUCH EMOTIONAL SUPPORT PROVIDED. RECEIVED CALL FROM PCU ASSISTANT ANALYST REGARDING STATUS OF PATIENT'S . CALL FACILITATED BETWEEN DR. BLUNT AND PATIENT'S DAUGHTER, EARL. PER EARL, AWAITING BROTHER'S ARRIVAL WHO IS HPOA. PATIENT'S TO BE TRANSFERRED TO [facility]. THIS WORKER TO REMAIN AVAILABLE FOR NEEDS. Radha ANTON, RECORDING CLERK, SISAL PICKER
[2019-04-02 14:21] LABS: Absolute Lymphocyte Count 1.97 X10^3/uL (0.83-4.51); Absolute Neutrophil Count 4.5 X10^3/uL (2.0-7.7); Basophil# 0.03 X10^3/uL; Basophil% 0.4 % (0-1); Eosinophil# 0.29 X10^3/uL; Eosinophils% 3.9 % (0-5); Hematocrit 37.5 % (37-47); Hemoglobin 12.1 g/dL (12.0-15.0); Lymphocyte # 1.97 X10^3/ul (4.0); Lymphocyte % 26.4 % (19-41); Mean Corp Hgb Conc 32.3 g/dL (32-36); Mean Corpuscular Hgb 30.1 pg (27.0-32.0); Mean Corpuscular Volume 93.3 fL (81-99); Mean Platelet Vol. 10.9 fl (6.2-12.0); Monocyte# 0.65 X10^3/uL; Monocyte% 8.7 % (0-10); NRBC Flagged by Analyzer 0 % (0-5); Neutrophil # 4.47 X10^3/uL (2.7-7.7); Neutrophil % 60.1 % (47-70); Platelet Count 200 K/mm3 (150-450); RBC Distribution Width CV 15.8 % (11.6-14.6); RBC Distribution Width SD 53.8 fl (35.1-43.9); Red Blood Count 4.02 M/mm3 (4.2-5.4); White Blood Count 7.5 K/mm3 (4.4-11.0)
[2019-04-02] MEDS: Ipratropium/Albuterol Sulfate 3 ML AMPUL.NEB INHALATION ×2 (14:21→20:10)
[2019-04-02 14:39] LABS: Anion Gap 5 (5-15); BUN 28 mg/dL (7-18); BUN/Creat Ratio 21.5 RATIO (10-20); Calcium,Total 8.3 mg/dL (8.5-10.1); Chloride 113 mmol/L (98-107); EST Glomerular Filtration Rate 43 mL/min (>60); Est Glom Filt Rate - Afr Amer 51 mL/min (>60); Estimated Creatinine Clearance 34.16 ml/min; Glucose 207 mg/dL (74-106); Potassium 4.2 mmol/L (3.5-5.1); Sodium Level 143 mmol/L (136-145)
[2019-04-02 14:50] LABS: BNP,B-Type NATRIURETIC PEPTIDE 62.5 pg/mL (0-100)
[2019-04-02] MEDS: predniSONE 20 MG Tablet PO (15:23)
--- NOTE | 2019-04-02 15:36 | ED.VIS.GEN ---
History of Present Illness Chief Complaint: Cough Informant: Patient Onset: Weeks Current Severity: Mild Narrative: Presents with harsh coughing shortness of breath for days she was seen recent emergency part work-up was unremarkable, she was started on outpatient management including a cough suppressant that her [employer] certified internetwork expert had her stop she reports today she was very emotionally upset at the fact that her was very sick and having to be rushed to the hospital with chest pain that caused to have more coughing and more shortness of breath and she came in for evaluation she does not describe a history of PR PE or DVT rather COPD that intermittently requires admission she has been on prednisone for what sounds like a few days Past Medical History - Allergies and Home Meds Allergies/Adverse Reactions: Allergies Penicillins Allergy (Verified 04/02/19 13:55) Angioedema rosiglitazone maleate [From Avandia] Allergy (Verified 04/02/19 13:55) hyperglycemia cephalexin [From Keflex] Adverse Reaction (Verified 04/02/19 13:55) Diarrhea doxycycline Adverse Reaction (Verified 04/02/19 13:55) Diarrhea insulin detemir [From Levemir] Adverse Reaction (Verified 04/02/19 13:55) hyperglycemia prednisone Adverse Reaction (Verified 04/02/19 13:55) hyperglycemia HYPERGLYCEMIA Sulfa (Sulfonamide Antibiotics) Adverse Reaction (Verified 04/02/19 13:55) Unknown pt is unsure Primary Care Physician: Rufus Blanco DO [Primary Care Provider] - Past Medical History: - - COPD Surgical History: cholecystectomy, - - Smoking Status: Current every day smoker - Family History Maternal Family History: Family History (Last Reviewed 02/10/19 @ 10:13 by SUSANNAH Gonzalez) Sister Lupus Arthritis Brother Colon cancer Cancer Arthritis Father Diabetes Heart disease Mother Hypertension Family History: Reports: No pertinent history Paternal Family History: Family History (Last Reviewed 02/10/19 @ 10:13 by SUSANNAH Gonzalez) Sister Lupus Arthritis Brother Colon cancer Cancer Arthritis Father Diabetes Heart disease Mother Hypertension Family History: Reports: No pertinent history Review of Systems General: Denies: Chills, Fever, Sweats Eyes: Denies: Visual changes - bilaterally, Diplopia ENT: Denies: Rhinorrhea, Sore throat Cardiovascular: Denies: Chest pain, Palpitations Respiratory: Reports: Cough, Sputum. Denies: Dyspnea, Dyspnea on exertion Gastrointestinal: Denies: Abdominal pain, Nausea, Vomiting, Diarrhea, Melena, Hematochezia Genitourinary: Denies: Dysuria, Hematuria, Frequency Musculoskeletal: Denies: Back pain, Extremity Pain Skin: Denies: Rash, Wounds Neurological: Denies: Headache, Weakness, Numbness Physical Exam Vital Signs/Narrative: Vital Signs Temp Pulse Resp BP Pulse Ox 04/02/19 15:27 98.1 F 78 17 162/66 H 97 04/02/19 14:04 83 21 H 181/67 H 88 04/02/19 13:52 98 F 88 20 H 167/77 H 93 General: Well nourished, Well developed, No Acute Distress Head: Normocephalic, Atraumatic Eyes: Perrl, EOMI ENT: Moist mucous membranes, No rhinorrhea Neck: Supple, Nontender Cardiovascular: Regular rate, Regular rhythm, No murmurs Respiratory: No distress, Chest nontender, Wheezing, Decreased Air Movement, - - He has a harsh cough here her pulse ox is 90 on room air 95 on oxygen Abdomen: Soft, Nontender, Nondistended, Normal bowel sounds Back: Nontender, Normal Inspection Extremities: Nontender, No edema Skin: Normal color, No rash Neurological: Alert, Oriented x3, Cranial nerves II-XII grossly intact, Normal Strength, Normal Sensation Psychological: Normal affect, Normal Mood Diagnostic/Tx/Re-eval - Medical Decision Making The patient's chest x-ray EKG shows sinus rhythm rate 74 no acute injury pattern intervals normal chest x-ray read as unremarkable screening labs otherwise unremarkable except her troponin is slightly elevated she declines a history of angina CAD she has been ill for days she is failed outpatient therapy does not believe she can function at home with this degree of coughing and given all of the above we have asked hospice for further management admission she was started on IV Levaquin and aerosols Admit stable Impression final Exacerbation of COPD Elevated troponin Failed outpatient therapy ED Disposition - Plan for ED Patient: Diagnosis: COPD exacerbation, Abnormal troponin Referrals: Rufus Blanco DO [Primary Care Provider] -
--- NOTE | 2019-04-02 15:44 | NURSING ---
PCU OBS ASHELFAH EXAC OF COPD, ABN TROP
--- NOTE | 2019-04-02 15:54 | HP.PCM_ITS ---
Problem List (1) Stage 2 moderate COPD by GOLD classification Status: Chronic (2) Gastroesophageal reflux disease with hiatal hernia Status: Chronic (3) Essential hypertension Status: Chronic (4) Dyslipidemia Status: Chronic (5) Diabetes mellitus, type 2 Status: Chronic Qualifiers: Diabetes mellitus complication status: with kidney complications (6) Obesity (BMI 30-39.9) Status: Chronic (7) Depression Status: Chronic (8) Chronic renal failure, stage 3 (moderate) Status: Chronic (9) Anxiety disorder Status: Chronic Qualifiers: Anxiety disorder type: generalized anxiety disorder Qualified Code(s): F41.1 - Generalized anxiety disorder History of Present Illness Date of Admission: 04/02/19 Chief Complaint: Shortness of breath, cough. The patient is a 73 year old F patient medical history as mentioned above presented to the emergency room because of shortness of breath and cough. Her symptoms started around 6 days ago and started with headache, nasal congestion and sore throat. Couple of days later, she started having mild shortness of breath, mainly exertional, associated with productive cough with clear sputum and she continued to have significant nasal congestion and postnasal drip as well as sore throat. She denies fever chills. She denied chest pain, palpitation, dizziness or lightheadedness. She reported chest discomfort upon coughing. She was seen by her doctor as outpatient who prescribed cough sup pressant but without any improvement of her symptoms. At this time, patient is tearful and emotionally upset because her is sick in the ICU in our hospital here. In the emergency department, her blood pressure was elevated, pulse ox was 88% on room air, slightly tachypneic, afebrile. Routine blood work was remarkable for BUN of 28 and creatinine of 1.30 which is chronic. Chest x- ray showed mild cardiomegaly, no acute findings. EKG revealed normal sinus rhythm without evidence of acute ischemic changes. Troponin was 0.288 and BNP was normal. She is being admitted for mild COPD exacerbation triggered by URTI likely viral and also because of indeterminate troponin. Past Medical History Past Medical History (Chronic Problems): Chronic Problems (Last Updated 04/02/19 @ 15:54 by Addis Florez MD) COPD exacerbation (Chronic) Allergic rhinitis (Chronic) Lung nodule (Chronic) 5.5 mm LLL Stage 2 moderate COPD by GOLD classification (Chronic) Menieres disease (Chronic) Gastroesophageal reflux disease with hiatal hernia (Chronic) Essential hypertension (Chronic) Dyslipidemia (Chronic) Diabetes mellitus, type 2 (Chronic) DVT of lower extremity (deep venous thrombosis) (Chronic) on coumadin Obesity (BMI 30-39.9) (Chronic) Depression (Chronic) Chronic renal failure, stage 3 (moderate) (Chronic) Anxiety disorder (Chronic) Medical History: Medical History (Last Updated 04/02/19 @ 15:54 by Addis Florez MD) Menieres disease (Chronic) H81.09 Gastroesophageal reflux disease with hiatal hernia (Chronic) K21.9, K44.9 Essential hypertension (Chronic) I10 Dyslipidemia (Chronic) E78.5 Diabetes mellitus, type 2 (Chronic) E11.9 DVT of lower extremity (deep venous thrombosis) (Chronic) I82.4Z9 on coumadin Obesity (BMI 30-39.9) (Chronic) E66.9 Depression (Chronic) F32.9 Chronic renal failure, stage 3 (moderate) (Chronic) N18.3 Anxiety disorder (Chronic) F41.9 Allergies Penicillins Allergy (Verified 04/02/19 13:55) Angioedema rosiglitazone maleate [From Avandia] Allergy (Verified 04/02/19 13:55) hyperglycemia cephalexin [From Keflex] Adverse Reaction (Verified 04/02/19 13:55) Diarrhea doxycycline Adverse Reaction (Verified 04/02/19 13:55) Diarrhea insulin detemir [From Levemir] Adverse Reaction (Verified 04/02/19 13:55) hyperglycemia prednisone Adverse Reaction (Verified 04/02/19 13:55) hyperglycemia HYPERGLYCEMIA Sulfa (Sulfonamide Antibiotics) Adverse Reaction (Verified 04/02/19 13:55) Unknown pt is unsure Home Medications: Ambulatory Orders Medication Instructions Recorded Warfarin [Coumadin] 3 mg PO DAILY 08/28/14 Lisinopril [Zestril] 20 mg PO BID #60 tab 02/22/15 Clonazepam [Klonopin] 1 mg PO TID PRN PRN 08/14/15 Famotidine [Pepcid] 20 mg PO QHS 08/14/15 amlodipine 5 mg tablet 5 mg PO QHS 08/28/17 fenofibrate nanocrystallized 145 145 mg PO QHS 08/28/17 mg tablet hydrochlorothiazide 25 mg tablet 25 mg PO QAM 08/28/17 Insulin NPH Human Isophane 30 - 35 unit SQ BID 06/25/18 [Humulin N] Insulin Regular, Human [Humulin R] See Protocol SQ TID 06/25/18 albuterol sulfate 2.5 mg/3 mL 2.5 mg INHALATION Q4H PRN 02/10/19 (0.083 %) solution for nebulization Prednisone [Deltasone] 20 mg PO BID #6 tab 03/30/19 Simvastatin 40 mg PO QHS 04/02/19 Surgical History: Surgical History (Last Reviewed 02/10/19 @ 10:13 by SUSANNAH Gonzalez) History of (Inactive) Z98.891 X3 S/P cholecystectomy (Inactive) Z90.49 Surgical History: cholecystectomy, - - Psychiatric History: Anxiety PROPERTY SPECIALIST History: No pertinent PROPERTY SPECIALIST history Smoking Status: Current every day smoker Tobacco Use: Cigarettes Alcohol: None Drugs: None - *Family History Maternal Family History: Family History (Last Reviewed 02/10/19 @ 10:13 by SUSANNAH Gonzalez) Sister Lupus Arthritis Brother Colon cancer Cancer Arthritis Father Diabetes Heart disease Mother Hypertension Paternal Family History: Family History (Last Reviewed 02/10/19 @ 10:13 by SUSANNAH Gonzalez) Sister Lupus Arthritis Brother Colon cancer Cancer Arthritis Father Diabetes Heart disease Mother Hypertension Review of Systems Constitutional: Reports: Anorexia, Weakness. Denies: Chills, Fever Eyes: Denies: Blurred vision, Double vision, Drainage, Redness HEENT: Reports: Nasal Congestion, Sore Throat. Denies: Difficulty Hearing, Ear Pain, Eye Pain Cardiovascular: Denies: Chest Pain, Chest Tightness, Heaviness, Palpitations, Syncope Respiratory: Reports: Cough, Pleuritic Pain, Shortness of Breath, Shortness of breath upon exertion, Sputum production, Wheezing Gastrointestinal: Denies: Abdominal Pain, Constipation, Diarrhea, Nausea, Vomiting Genitourinary: Denies: Dysuria, Frequency, Hematuria Musculoskeletal: Denies: Arm Pain, Back Pain, Foot Pain Skin: Denies: Dryness, Rash Neurological: Denies: Balance problems, Double vision, Change in Speech, Slurred speech, Confusion, Headaches, Incoordination, Numbness Psychiatric: Reports: Anxiety, Depression Endocrine: Denies: Change in Body Habitus, Polydipsia, Polyuria VTE Information - Inpt Only VTE Present on Admission: No VTE Mechan Device Prophylaxis: None VTE Pharm Prophylaxis ordered?: No - Physical Exam Vitals/I&O's: Vital Signs Temp Pulse Resp BP Pulse Ox 98.1 F 78 17 162/66 H 97 04/02/19 15:27 04/02/19 15:27 04/02/19 15:27 04/02/19 15:27 04/02/19 15:27 Oxygen Flow Rate (L/min) 3 Oxygen Delivery Method Room Air Weight: 214 lb Body Mass Index (BMI) 35.6 Finger Stick Blood Glucose 115 General: Alert, Oriented x3, Cooperative, - - Minimally short of breath. Tearful and emotional. HEENT: Atraumatic, PERRLA, EOMI, Normocephalic, - - Red eyes. Nasal congestion. Oral: Moist Mucosa, No Gingival or Mucosal Lesions/ Ulcerations Neck: Supple, No JVD, Negative Carotid Bruits, Trachea Midline, Thyroid Normal Size and Texture Lungs: No rales, Diminished, Rhonchi, Wheezes, - - Decubitus sounds bilateral, occasional expiratory wheezes, rhonchi. Cardiovascular: Regular rate, Regular Rhythm, Normal S1, Normal S2, PMI Normal Abdomen: Bowel Sounds Present, Soft, Non Tender, Non-Distended, No Hepato- splenomegaly Extremities: No clubbing, No cyanosis, No edema Skin: No rashes, No breakdown Lymphatic: No Cervical, Supraclavicular, or Inguinal Adenopathy Neurological: Cranial nerves II-XII grossly intact, Motor Exam 5/5 strength throughout Psych/Mental Status: Normal Affect, Appropriate, Alert and oriented to time, place, person, mood and affect Laboratory Results 04/02/19 14:13: WBC 7.5, RBC 4.02 L, Hgb 12.1, Hct 37.5, MCV 93.3, MCH 30.1, MCHC 32.3, RDW Std Deviation 53.8 H, RDW Coeff of [place] 15.8 H, Plt Count 200, MPV 10.9, Immature Gran % (Auto) 0.500, Neut % (Auto) 60.1, Lymph % (Auto) 26.4, [place] % (Auto) 8.7, Eos % (Auto) 3.9, Baso % (Auto) 0.4, Absolute Neuts (auto) 4.5, Absolute Lymphs (auto) 1.97, Nucleated RBC % 0 04/02/19 14:13: Sodium 143, Potassium 4.2, Chloride 113 H, Carbon Dioxide 25.0, Anion Gap 5, BUN 28 H, Creatinine 1.30 H, Estim Creat Clear Calc 34.16, Est GFR (MDRD) Af Amer 51 L, Est GFR (MDRD) Non-Af 43 L, BUN/Creatinine Ratio 21.5 H, Glucose 207 H, Calcium 8.3 L, Troponin I 0.288 H 04/02/19 14:13: B-Natriuretic Peptide 62.5 Clinical Impression(s) from Imaging Studies Chest X-Ray 04/02/19 13:55 IMPRESSION: No acute abnormality is present. Electronically Signed: Ketan Price, at 14:48 EST , Service support , Current Medications Levofloxacin (Levaquin Iv) 750 mg in 150 mls @ 100 mls/hr IV X1 ONE Stop: 04/02/19 16:56 Assessment/Plan This is a 73 years old female patient presented to the emergency room because of shortness of breath, cough, nasal congestion and she was found to have mild COPD exacerbation triggered by probably viral URTI and also found to have indeterminate troponin. #1 mild acute COPD exacerbation/hypoxia: Probably triggered by viral URTI. Chest x-ray reviewed, no acute findings. Pulse ox was 88% on room air in the ED. Improved with oxygen. Plan: Admit to PCU for observation, cardiac monitoring, DuoNeb every 6 hours, albuterol as needed, respiratory panel for viruses, start empiric oral Levaquin, prednisone daily, incentive spirometer, chest physiotherapy, gentle IV fluids for hydration, repeat CBC and BMP tomorrow morning, PT OT evaluation and treatment. #2 indeterminate troponin/probable non-STEMI: Troponin is 0.288. EKG showed no acute ischemic changes. Patient denies any chest pain. Risk factors are age, diabetes, hypertension, hyperlipidemia and smoking history. Patient is high risk for CAD. Plan: Serial cardiac enzymes, repeat EKG tomorrow morning, 2D echocardiogram, continue Coumadin, lisinopril. Will consider consulting cardiology if cardiac enzymes are trending up. #3 type 2 diabetes mellitus: ADA diet, Accu-Cheks, insulin sliding scale, continue home doses of Humulin insulin. #4 COPD: Plan as above, bronchodilators, oral prednisone, Levaquin #5 stage III chronic kidney disease: Baseline creatinine has been around 1.1 to 1.4 mg/dL, admission creatinine is 1.30, stable at baseline. #6 hypertension: Blood pressures stable, continue Norvasc, HCTZ and lisinopril. #7 anxiety/depression: Patient is tearful and emotional because her is sick in the ICU at the hospital. Continue Klonopin. #8 hyperlipidemia: Continue statins. #9 DVT prophylaxis: On Coumadin, will check INR. This note was generated with [employer] dictation software. It may contain incorrect words, spelling, and punctuation that were not noted in checking the note before signing. Code Visit OBSV E&M: 75881 Initial observation care L3
[2019-04-02] MEDS: levoFLOXacin IV 750 MG/150 ML BAG 100 MG IV (16:05)
--- NOTE | 2019-04-02 17:06 | ECHOD_ITS ---
Reason For Study: DYSPNEA/SOB Procedure This was a 2D Doppler, Color Flow transthoracic echocardiogram. Exam performed portable in patient room. Left Ventricle Normal LV size. The estimated ejection fraction is 65 %. Diastolic function is indeterminate. No regional wall motion abnormalities noted. Right Ventricle Normal RV size. Normal systolic function. Atria The left atrium is mildly enlarged. Normal right atrium. No doppler evidence for ASD. Mitral Valve There is no mitral valve stenosis. Mild (1+) mitral valve insufficiency. Tricuspid Valve There is no tricuspid stenosis. Trivial tricuspid valve insufficiency. Pulmonary artery systolic pressure is 25-30 mmHg. Aortic Valve Trisinus/trileaflet aortic valve. There is no aortic stenosis. No aortic valve insufficiency. Pulmonic Valve There is no pulmonic valvular stenosis. No pulmonic valve insufficiency. Great Vessels Normal aortic root. Pericardium/Pleural No pericardial effusion. MMode/2D Measurements & Calculations LVIDd: 5.0 cm IVSd: 1.00 cm Ao root diam: 2.9 cm LVIDs: 3.3 cm LVPWd: 1.0 cm RVDd: 3.4 cm FS: 34.1 % LAV(MOD-bp): 56.8 ml LA A4 area: 18.5 cm2 LA dimension(2D): 4.2 cm LAV(MOD-bp) Indexed: 27.8 ml/m2 LAV(MOD-sp2): 61.1 ml LAV(MOD-sp4): 53.1 ml RA A4 area: 14.9 cm2 Time Measurements MV dec time: 0.18 sec Doppler Measurements & Calculations MV E max harjit: 88.7 cm/sec Lat Peak E' Harjit: 7.2 cm/sec Med Peak E' Harjit: 5.3 cm/sec MV A max harjit: 109.6 cm/sec E/E' lat: 12.3 E/E' med: 16.8 MV E/A: 0.81 Ao V2 max: 111.8 cm/sec LV V1 max: 101.5 cm/sec PA V2 max: 87.5 cm/sec Ao max P.0 mmHg LV V1 max P.1 mmHg TR max harjit: 239.6 cm/sec TR max P.0 mmHg Interpretation Summary The estimated ejection fraction is 65 %. Diastolic function is indeterminate. Mild (1+) mitral valve insufficiency. Trivial tricuspid valve insufficiency. Pulmonary artery systolic pressure is 25-30 mmHg. Ordering Physician: Addis Florez Referring Physician: Rufus Blanco Performed By: Linette Madison, EVETTECS, RVT
[2019-04-02] MEDS: 0.9% Normal Saline 1,000 ML 75 ML IV (17:30)
[2019-04-02 18:19] LABS: International Normalized Ratio 2.9; Prothrombin Time (Protime)PT. 30.2 SECONDS (11.7-14.9)
[2019-04-02] MEDS: Insulin Lispro 100 UNIT/ML INSULN.PEN SC ×2 (18:24→22:03)
[2019-04-02 18:36] LABS: Bedside Glucose 225 mg/dL (70-110)
[2019-04-02] MEDS: Insulin NPH Human 100 UNITS/ML PEN 30 UNITS SC (22:02)
[2019-04-02] MEDS: Atorvastatin Calcium 20 MG Tablet PO (22:03)
[2019-04-02] MEDS: Famotidine 20 MG Tablet PO (22:03)
[2019-04-02] MEDS: Fenofibrate 145 MG Tablet PO (22:03)
[2019-04-02] MEDS: Lisinopril 20 MG Tablet PO (22:03)
[2019-04-02] MEDS: amLODIPine 5 MG Tablet PO (22:03)
[2019-04-02 22:15] LABS: Bedside Glucose 272 mg/dL (70-110)
[2019-04-02] MEDS: clonazePAM 1 MG Tablet PO (22:24)
[2019-04-02] MEDS: Acetaminophen 325 MG Tablet 650 MG PO (22:24)
[2019-04-03] VITALS (13 sets, daily range): BP systolic 142–178; BP diastolic 47–74; PULSE 61–79; RESP 18–20; TEMP 36.6–37; O2SAT 93–97
[2019-04-03] MEDS: Ipratropium/Albuterol Sulfate 3 ML AMPUL.NEB INHALATION ×4 (01:56→19:50)
--- NOTE | 2019-04-03 05:55 | EKG12_ITS ---
Test Reason : AM EKG Blood Pressure : / mmHG Vent. Rate : 080 BPM Atrial Rate : 080 BPM P-R Int : 144 ms QRS Dur : 080 ms QT Int : 392 ms P-R-T Axes : 062 -01 006 degrees QTc Int : 452 ms Normal sinus rhythm Nonspecific ST and T wave abnormality Abnormal ECG When compared with ECG of 02-APR-2019 14:24, MANUAL COMPARISON REQUIRED, DATA IS UNCONFIRMED Confirmed by TIN TORRES, SCOTT ([id number]), newspaper copy editor SHEELA CAAL ([id number]) on 04/06/2019 10:29:08 AM Referred By: Addis Florez Confirmed By:CLIVE CASTLE MD
[2019-04-03] MEDS: levoFLOXacin 500 MG Tablet PO (06:06)
[2019-04-03 06:42] LABS: Absolute Lymphocyte Count 1.21 X10^3/uL (0.83-4.51); Absolute Neutrophil Count 4.1 X10^3/uL (2.0-7.7); Basophil# 0.02 X10^3/uL; Basophil% 0.3 % (0-1); Eosinophil# 0.02 X10^3/uL; Eosinophils% 0.3 % (0-5); Hematocrit 37.3 % (37-47); Hemoglobin 11.8 g/dL (12.0-15.0); Lymphocyte # 1.21 X10^3/ul (4.0); Lymphocyte % 20.8 % (19-41); Mean Corp Hgb Conc 31.6 g/dL (32-36); Mean Corpuscular Hgb 29.4 pg (27.0-32.0); Mean Platelet Vol. 11.1 fl (6.2-12.0); Monocyte# 0.37 X10^3/uL; Monocyte% 6.4 % (0-10); NRBC Flagged by Analyzer 0 % (0-5); Neutrophil # 4.14 X10^3/uL (2.7-7.7); Neutrophil % 71.2 % (47-70); Platelet Count 168 K/mm3 (150-450); RBC Distribution Width CV 15.1 % (11.6-14.6); Red Blood Count 4.01 M/mm3 (4.2-5.4); White Blood Count 5.8 K/mm3 (4.4-11.0)
[2019-04-03] MEDS: Insulin Lispro 100 UNIT/ML INSULN.PEN SC ×4 (06:53→21:34)
[2019-04-03] MEDS: 0.9% Normal Saline 1,000 ML 75 ML IV (06:56)
[2019-04-03 07:00] LABS: Bedside Glucose 225 mg/dL (70-110)
[2019-04-03 07:07] LABS: Anion Gap 3 (5-15); BUN 27 mg/dL (7-18); Calcium,Total 8.4 mg/dL (8.5-10.1); Chloride 111 mmol/L (98-107); Creatinine, Serum 1.23 mg/dL (0.55-1.02); EST Glomerular Filtration Rate 45 mL/min (>60); Est Glom Filt Rate - Afr Amer 55 mL/min (>60); Estimated Creatinine Clearance 36.11 ml/min; Glucose 258 mg/dL (74-106); Potassium 4.8 mmol/L (3.5-5.1); Sodium Level 141 mmol/L (136-145)
[2019-04-03] MEDS: predniSONE 20 MG Tablet 40 MG PO (08:30)
[2019-04-03] MEDS: clonazePAM 1 MG Tablet PO (09:17)
[2019-04-03] MEDS: hydroCHLOROthiazide 25 MG Tablet PO (09:17)
[2019-04-03] MEDS: Insulin NPH Human 100 UNITS/ML PEN 30 UNITS SC ×2 (09:18→21:34)
[2019-04-03] MEDS: Lisinopril 20 MG Tablet PO ×2 (09:23→21:35)
--- NOTE | 2019-04-03 12:34 | PN_ITS ---
<Annabelle Marx - Last Filed: 04/03/19 12:46> Subjective: Patient seen and examined. Reports improvement in breathing. Complains of postnasal drainage, reports she is not able to have Flonase and declines nasal saline spray. Denies chest pain. Tearful during assessment due to being in critical condition at outside hospital. - Physical Exam Vitals/I&O's: Vital Signs Temp Pulse Resp BP Pulse Ox 97.8 F 75 18 178/65 H 95 04/03/19 09:13 04/03/19 09:13 04/03/19 09:13 04/03/19 09:13 04/03/19 09:13 Oxygen Flow Rate (L/min) 2 Oxygen Delivery Method Nasal Cannula Weight: 215 lb 6.266 oz Body Mass Index (BMI) 35.8 Finger Stick Blood Glucose 115 Intake and Output for Last 24 Hours 04/01/19 04/02/19 04/03/19 23:59 23:59 23:59 Intake Total 983.75 / 983.75 931.25 / 931.25 Balance 983.75 / 983.75 931.25 / 931.25 General: Alert, Oriented x3, Cooperative HEENT: Atraumatic, PERRLA, EOMI, Normocephalic Oral: Dry Mucosa Neck: Supple, No JVD, Negative Carotid Bruits Lungs: Diminished, Wheezes Cardiovascular: Regular rate, Regular Rhythm, Normal S1, Normal S2, No murmurs Abdomen: Bowel Sounds Present, Soft, Non Tender, Non-Distended Extremities: No clubbing, No cyanosis, No edema, Capillary Refill Less than 3 Seconds Skin: No rashes, No breakdown Musculoskeletal: No Tenderness to Palpation of Joints or Extremities Neurological: Cranial nerves II-XII grossly intact, Neuro grossly intact Psych/Mental Status: Normal Affect, Appropriate Microbiology Past 72 Hours 04/02/19 17:32 Mucosa - Nose Respiratory Panel (PCR) - Final Laboratory Results 04/02/19 14:13: WBC 7.5, RBC 4.02 L, Hgb 12.1, Hct 37.5, MCV 93.3, MCH 30.1, MCHC 32.3, RDW Std Deviation 53.8 H, RDW Coeff of Alton 15.8 H, Plt Count 200, MPV 10.9, Immature Gran % (Auto) 0.500, Neut % (Auto) 60.1, Lymph % (Auto) 26.4, Har[place] % (Auto) 8.7, Eos % (Auto) 3.9, Baso % (Auto) 0.4, Absolute Neuts (auto) 4.5, Absolute Lymphs (auto) 1.97, Nucleated RBC % 0 04/02/19 14:13: Sodium 143, Potassium 4.2, Chloride 113 H, Carbon Dioxide 25.0, Anion Gap 5, BUN 28 H, Creatinine 1.30 H, Estim Creat Clear Calc 34.16, Est GFR (MDRD) Af Amer 51 L, Est GFR (MDRD) Non-Af 43 L, BUN/Creatinine Ratio 21.5 H, Glucose 207 H, Calcium 8.3 L, Troponin I 0.288 H 04/02/19 14:13: B-Natriuretic Peptide 62.5 04/02/19 17:30: PT 30.2 H, INR 2.9 04/02/19 17:30: Troponin I 0.286 H 04/02/19 18:15: POC Glucose 225 H 04/02/19 20:20: Troponin I 0.269 H 04/02/19 22:00: POC Glucose 272 H 04/03/19 05:55: WBC 5.8, RBC 4.01 L, Hgb 11.8 L, Hct 37.3, MCV 93.0, MCH 29.4, MCHC 31.6 L, RDW Std Deviation 52.0 H, RDW Coeff of Alton 15.1 H, Plt Count 168, MPV 11.1, Immature Gran % (Auto) 1.000 H, Neut % (Auto) 71.2 H, Lymph % (Auto) 20.8, Harford % (Auto) 6.4, Eos % (Auto) 0.3, Baso % (Auto) 0.3, Absolute Neuts (auto) 4.1, Absolute Lymphs (auto) 1.21, Nucleated RBC % 0 04/03/19 05:55: Sodium 141, Potassium 4.8, Chloride 111 H, Carbon Dioxide 27.0, Anion Gap 3 L, BUN 27 H, Creatinine 1.23 H, Estim Creat Clear Calc 36.11, Est GFR (MDRD) Af Amer 55 L, Est GFR (MDRD) Non-Af 45 L, BUN/Creatinine Ratio 22.0 H , Glucose 258 H, Calcium 8.4 L 04/03/19 06:51: POC Glucose 225 H Current Medications Acetaminophen (Tylenol) 650 mg PO Q6H PRN PRN PRN Reason: Pain Score 1-3/Temp > 100.7 F Last Admin: 04/02/19 22:24 Dose: 650 mg Documented by: Albuterol Sulfate (Ventolin Aerosols) 2.5 mg INHALATION Q2H PRN PRN PRN Reason: SOB/Wheezing Albuterol/Ipratropium (Duoneb) 3 ml INHALATION Q6H.RT [facility] Last Admin: 04/03/19 07:22 Dose: 3 ml Documented by: Amlodipine Besylate (Norvasc) 5 mg PO QHS [facility] Last Admin: 04/02/19 22:03 Dose: 5 mg Documented by: Atorvastatin Calcium (Lipitor) 20 mg PO QHS [facility] Last Admin: 04/02/19 22:03 Dose: 20 mg Documented by: Clonazepam (Klonopin) 1 mg PO TID PRN PRN PRN Reason: ANXIETY Last Admin: 04/03/19 09:17 Dose: 1 mg Documented by: Dextrose (D50w Syringe) 0 gm IV X1 PRN; Protocol PRN Reason: Hypoglycemia Famotidine (Pepcid) 20 mg PO QHS [facility] Last Admin: 04/02/19 22:03 Dose: 20 mg Documented by: Fenofibrate (Tricor) 145 mg PO QHS [facility] Last Admin: 04/02/19 22:03 Dose: 145 mg Documented by: Glucagon () 1 mg IM .X1 PRN PRN Reason: Hypoglycemia Guaifenesin (Robitussin) 20 ml PO Q4H PRN PRN PRN Reason: COUGH Hydrochlorothiazide (Hctz) 25 mg PO QAM [facility] Last Admin: 04/03/19 09:17 Dose: 25 mg Documented by: Sodium Chloride () 1,000 mls @ 75 mls/hr IV .[id number] [facility] Stop: 04/03/19 19:45 Last Admin: 04/03/19 06:56 Dose: 75 mls/hr Documented by: Insulin Human Lispro (Humalog Kwikpen (Bkc)) 0 unit SC ACHS [facility]; Protocol Last Admin: 04/03/19 11:02 Dose: 3 u Documented by: Insulin Human NPH (Humulin N (Bkc)) 30 units SC BID [facility] Last Admin: 04/03/19 09:18 Dose: 30 u Documented by: Levofloxacin (Levaquin Tablet) 250 mg PO DAILY@0600 [facility] Lisinopril (Zestril) 20 mg PO BID [facility] Last Admin: 04/03/19 09:23 Dose: 20 mg Documented by: Ondansetron HCl (Zofran) 4 mg IV Q8H PRN PRN PRN Reason: NAUSEA/VOMITING Prednisone () 40 mg PO DAILY@0800 [facility] Last Admin: 04/03/19 08:30 Dose: 40 mg Documented by: Senna/Docusate Sodium (Senokot-S, Clarice-Colace) 2 tablet PO BID PRN PRN PRN Reason: Constipation Sodium Chloride () 10 - 40 ml IV UD PRN PRN Reason: SALINE FLUSH Warfarin Sodium (Coumadin (Pbkc)) 2.5 mg PO DAILY@1700 [facility] Last Admin: 04/02/19 20:32 Dose: 2.5 mg Documented by: Medical Necessity - Tobacco Use Smoking Status: Former smoker Tobacco Use: Cigarettes Assessment/Plan 1. Acute exacerbation of COPD with associated acute hypoxic respiratory insufficiency-respiratory panel negative. Continue oral prednisone. On oral Levaquin empirically. Albuterol and DuoNeb aerosols. Continue supplement oxygen to maintain O2 at or above 90%. Walking pulse ox prior to discharge. 2. Indeterminate troponin-enzymes trended down. EKG without evidence of ischemia. Echocardiogram pending. Suspect demand ischemia as a result of #1. Patient denies chest pain. 3. Type 2 diabetes mellitus-continue home insulin regimen. 4. Chronic kidney disease stage III-at baseline, trend BMP. 5. Hypertension-stable, continue amlodipine, hydrochlorothiazide, lisinopril. 6. Anxiety/depression-continue Klonopin regimen. 7. Hyperlipidemia-continue statin. DVT prophylaxis-Coumadin This patient was seen by SUSANNAH Saeed under the supervision of Dr. Blair. <Saman Blair - Last Filed: 04/03/19 15:29> - Physical Exam Vitals/I&O's: Vital Signs Temp Pulse Resp BP Pulse Ox 97.8 F 67 18 178/65 H 95 04/03/19 09:13 04/03/19 13:32 04/03/19 13:32 04/03/19 09:13 04/03/19 09:13 Oxygen Flow Rate (L/min) 2 Oxygen Delivery Method Nasal Cannula Weight: 97.7 kg Body Mass Index (BMI) 35.8 Finger Stick Blood Glucose 115 Intake and Output for Last 24 Hours 04/01/19 04/02/19 04/03/19 23:59 23:59 23:59 Intake Total 983.75 / 983.75 931.25 / 931.25 Balance 983.75 / 983.75 931.25 / 931.25 Microbiology Past 72 Hours 04/02/19 17:32 Mucosa - Nose Respiratory Panel (PCR) - Final Laboratory Results 04/02/19 17:30: PT 30.2 H, INR 2.9 04/02/19 17:30: Troponin I 0.286 H 04/02/19 18:15: POC Glucose 225 H 04/02/19 20:20: Troponin I 0.269 H 04/02/19 22:00: POC Glucose 272 H 04/03/19 05:55: WBC 5.8, RBC 4.01 L, Hgb 11.8 L, Hct 37.3, MCV 93.0, MCH 29.4, MCHC 31.6 L, RDW Std Deviation 52.0 H, RDW Coeff of Alton 15.1 H, Plt Count 168, MPV 11.1, Immature Gran % (Auto) 1.000 H, Neut % (Auto) 71.2 H, Lymph % (Auto) 20.8, [place] % (Auto) 6.4, Eos % (Auto) 0.3, Baso % (Auto) 0.3, Absolute Neuts (auto) 4.1, Absolute Lymphs (auto) 1.21, Nucleated RBC % 0 04/03/19 05:55: Sodium 141, Potassium 4.8, Chloride 111 H, Carbon Dioxide 27.0, Anion Gap 3 L, BUN 27 H, Creatinine 1.23 H, Estim Creat Clear Calc 36.11, Est GFR (MDRD) Af Amer 55 L, Est GFR (MDRD) Non-Af 45 L, BUN/Creatinine Ratio 22.0 H , Glucose 258 H, Calcium 8.4 L 04/03/19 06:51: POC Glucose 225 H 04/03/19 11:00: POC Glucose 233 H Current Medications Acetaminophen (Tylenol) 650 mg PO Q6H PRN PRN PRN Reason: Pain Score 1-3/Temp > 100.7 F Last Admin: 04/02/19 22:24 Dose: 650 mg Documented by: Albuterol Sulfate (Ventolin Aerosols) 2.5 mg INHALATION Q2H PRN PRN PRN Reason: SOB/Wheezing Albuterol/Ipratropium (Duoneb) 3 ml INHALATION Q6H.RT [facility] Last Admin: 04/03/19 13:32 Dose: 3 ml Documented by: Amlodipine Besylate (Norvasc) 5 mg PO QHS [facility] Last Admin: 04/02/19 22:03 Dose: 5 mg Documented by: Atorvastatin Calcium (Lipitor) 20 mg PO QHS [facility] Last Admin: 04/02/19 22:03 Dose: 20 mg Documented by: Clonazepam (Klonopin) 1 mg PO TID PRN PRN PRN Reason: ANXIETY Last Admin: 04/03/19 09:17 Dose: 1 mg Documented by: Dextrose (D50w Syringe) 0 gm IV X1 PRN; Protocol PRN Reason: Hypoglycemia Famotidine (Pepcid) 20 mg PO QHS [facility] Last Admin: 04/02/19 22:03 Dose: 20 mg Documented by: Fenofibrate (Tricor) 145 mg PO QHS [facility] Last Admin: 04/02/19 22:03 Dose: 145 mg Documented by: Glucagon () 1 mg IM .X1 PRN PRN Reason: Hypoglycemia Guaifenesin (Robitussin) 20 ml PO Q4H PRN PRN PRN Reason: COUGH Hydralazine HCl (Apresoline Iv) 5 mg IV Q4H PRN PRN PRN Reason: BLOOD PRESSURE Hydrochlorothiazide (Hctz) 25 mg PO QAM [facility] Last Admin: 04/03/19 09:17 Dose: 25 mg Documented by: Sodium Chloride () 1,000 mls @ 75 mls/hr IV .[id number] [facility] Stop: 04/03/19 19:45 Last Admin: 04/03/19 06:56 Dose: 75 mls/hr Documented by: Insulin Human Lispro (Humalog Kwikpen (Bkc)) 0 unit SC ACHS [facility]; Protocol Last Admin: 12/05/19 11:02 Dose: 3 u Documented by: Insulin Human NPH (Humulin N (Bkc)) 30 units SC BID [facility] Last Admin: 04/03/19 09:18 Dose: 30 u Documented by: Levofloxacin (Levaquin Tablet) 250 mg PO DAILY@0600 [facility] Lisinopril (Zestril) 20 mg PO BID [facility] Last Admin: 04/03/19 09:23 Dose: 20 mg Documented by: Ondansetron HCl (Zofran) 4 mg IV Q8H PRN PRN PRN Reason: NAUSEA/VOMITING Prednisone () 40 mg PO DAILY@0800 [facility] Last Admin: 04/03/19 08:30 Dose: 40 mg Documented by: Senna/Docusate Sodium (Senokot-S, Clarice-Colace) 2 tablet PO BID PRN PRN PRN Reason: Constipation Sodium Chloride () 10 - 40 ml IV UD PRN PRN Reason: SALINE FLUSH Warfarin Sodium (Coumadin (Pbkc)) 2.5 mg PO DAILY@1700 [facility] Last Admin: 04/02/19 20:32 Dose: 2.5 mg Documented by: Assessment/Plan This patient was seen in conjunction with SUSANNAH Saeed . I have independently interviewed and examined the patient and reviewed pertinent historical, laboratory, and other data. Please refer to SUSANNAH Saeed note for details of this patient's presentation, findings, and recommendations. I have reviewed SUSANNAH Saeed note and concur with documented findings. In brief, patient is a 73-year-old lady with history of COPD admitted with p rogressive shortness of breath and assessment of COPD with acute exacerbation made admitted to a monitored bed for further management. Patient was also found to have elevated troponin on admission. Physical Examination: GENERAL: Dyspneic at rest HEENT: Atraumatic; EYES; Anicteric, Normal Conjunctiva NECK; supple, normal thyroid, RESPIRATORY: Diminished to auscultation CARDIOVASCULAR: Regular S1 S2, GI: soft, normoactive bowel sounds, : No Renal angle tenderness; EXTREMITIES: No edema, no clubbing, MUSCULOSKELETAL: no muscle waisting NEURO: Awake; no lateralizing signs. SKIN: No Rash PSYCH; Flat affect Assessment: 1. COPD with acute exacerbation 2. Elevated troponin secondary to non-STEMI type II as a result of demand ischemia from above 3. Diabetes mellitus type 2 4. Chronic kidney disease stage III 5. Essential hypertension 6. Dyslipidemia 7. Depression with anxiety 8. DVT prophylaxis Recommendations: 1. I have discussed the results of my overview and impressions with the patient 2. Options for management were reviewed Advance planning; did discuss with the patient and family regarding advanced directives as well as CODE STATUS. Did explain the various scenarios involved ( FULL CODE, DNR CCA, DNR CCA with no intubation, and DNR CC and what each meant) patient elected to remain full code with CPR and Intubation. Order was placed. Time spent on discussion 18 minutes. Code Visit Inpatient E&M: 56159 Subs Hosp L3 Procedures: 03795 Advncd Care Plan 30 Min
[2019-04-03 13:16] LABS: Bedside Glucose 233 mg/dL (70-110)
--- NOTE | 2019-04-03 13:51 | CASEMGMT ---
SW spoke w/pt in room, offered support as her got transferred to [place] yesterday. Pt tearful, said her children are not telling her what is going on with him. She states she did speak w/him this morning. They have been 34 years. Pt has 6 children, they are hers from a prior marriage, her first when she was 29. Though the children are hers, her treats them as if they are her own. Pt states has several grandchildren and great grandchildren also, and that they are supportive. Pt thanked SW for speaking w/her, declined anything further at this time. SW will check on her again tomorrow as time allows. ALEJANDRO Mccallum
--- NOTE | 2019-04-03 15:10 | CHAPLAIN ---
Type of Pastoral Visit _x__ Initial Visit ___ Follow-up Visit ___ On-call Visit ___ General Patient Visit ___ Spiritual Assessment ___ Family Conference ___ Bereavement ___ Rapid Response ___ Code Blue ___ Other (describe below) Pastoral Care Referral From _x__ Patient ___ Family ___ Nurse ___ Physician ___ Scene [employer] Lighting Design Lecturer ___ [employer] Systems Programmer ___ Other (describe below) Sacrament/Intervention _x__ Active listening ___ Anointing ___ Orthodoxy ___ Bereavement ___ Communion ___ Elsie exploration ___ _x__ Life review _x__ Prayer ___ Reconciliation ___ Sacrament of Sick _x__ Supportive presence ___ Wedding ___ Other (describe below) Pastoral Comments patient is worried about the status and future of her who is a heart patient in [place]; pt is seeking emotional and spiritual support at this time; listening and prayer are main interventions; pt also has a few questions of spiritual nature;
[2019-04-03 16:51] LABS: Bedside Glucose 283 mg/dL (70-110)
[2019-04-03] MEDS: amLODIPine 5 MG Tablet PO (21:35)
[2019-04-03] MEDS: Fenofibrate 145 MG Tablet PO (21:35)
[2019-04-03] MEDS: Atorvastatin Calcium 20 MG Tablet PO (21:35)
[2019-04-03] MEDS: Famotidine 20 MG Tablet PO (21:35)
[2019-04-03 22:10] LABS: Bedside Glucose 403 mg/dL (70-110)
[2019-04-04] VITALS (12 sets, daily range): BP systolic 124–162; BP diastolic 59–79; PULSE 58–79; RESP 18–20; TEMP 36.4–36.9; O2SAT 89–96
[2019-04-04] MEDS: Ipratropium/Albuterol Sulfate 3 ML AMPUL.NEB INHALATION ×3 (01:00→19:40)
[2019-04-04 06:36] LABS: Absolute Lymphocyte Count 2.13 X10^3/uL (0.83-4.51); Basophil# 0.03 X10^3/uL; Basophil% 0.3 % (0-1); Eosinophil# 0.09 X10^3/uL; Hematocrit 39.2 % (37-47); Hemoglobin 12.3 g/dL (12.0-15.0); Lymphocyte # 2.13 X10^3/ul (4.0); Mean Corp Hgb Conc 31.4 g/dL (32-36); Mean Corpuscular Hgb 29.2 pg (27.0-32.0); Mean Corpuscular Volume 93.1 fL (81-99); Mean Platelet Vol. 10.8 fl (6.2-12.0); Monocyte# 0.55 X10^3/uL; Monocyte% 6.2 % (0-10); NRBC Flagged by Analyzer 0 % (0-5); Neutrophil # 5.99 X10^3/uL (2.7-7.7); Neutrophil % 67.5 % (47-70); Platelet Count 214 K/mm3 (150-450); RBC Distribution Width CV 15.1 % (11.6-14.6); Red Blood Count 4.21 M/mm3 (4.2-5.4); White Blood Count 8.9 K/mm3 (4.4-11.0)
[2019-04-04 06:46] LABS: Bedside Glucose 130 mg/dL (70-110)
[2019-04-04] MEDS: levoFLOXacin 250 MG Tablet PO (06:49)
[2019-04-04 06:50] LABS: Anion Gap 3 (5-15); BUN 27 mg/dL (7-18); BUN/Creat Ratio 22.5 RATIO (10-20); Calcium,Total 8.9 mg/dL (8.5-10.1); Chloride 111 mmol/L (98-107); EST Glomerular Filtration Rate 47 mL/min (>60); Est Glom Filt Rate - Afr Amer 56 mL/min (>60); Estimated Creatinine Clearance 37.01 ml/min; Glucose 146 mg/dL (74-106); Potassium 4.5 mmol/L (3.5-5.1); Sodium Level 142 mmol/L (136-145)
[2019-04-04] MEDS: Dibucaine 30 GM Tube 1 APPLIC TOPICAL (06:50)
[2019-04-04] MEDS: hydroCHLOROthiazide 25 MG Tablet PO (08:27)
[2019-04-04] MEDS: Lisinopril 20 MG Tablet PO ×2 (08:27→21:39)
[2019-04-04] MEDS: predniSONE 20 MG Tablet 40 MG PO (08:27)
[2019-04-04] MEDS: Insulin NPH Human 100 UNITS/ML PEN 30 UNITS SC ×2 (08:28→21:46)
[2019-04-04] MEDS: clonazePAM 1 MG Tablet PO ×2 (08:58→18:44)
[2019-04-04] MEDS: Acetaminophen 325 MG Tablet 650 MG PO (08:59)
--- NOTE | 2019-04-04 11:02 | CASEMGMT ---
Addendum entered by Deanna Garcia 04/04/19 13:32: Carolin from [facility] called again and left a message stating that they may not be able to see pt initially until Sunday. Pt was already okay with this, SW left Carolin a message and let her know. ALEJANDRO Mccallum Addendum entered by Deanna Garcia 04/04/19 11:37: SW spoke w/pt again, let her know that [facility] can take her, will be out the start of the week. Pt is fine with this. Pt is visibly upset as her daughter called, saying pt's is ready for discharge and pt's other daughter cannot oyster picker pt until after 3pm, and her daughter wants pt to come up with a different solution. She explains that her daughters come to her with difficulties and expect pt to solve them, pt states, no wonder I'm anxious. SW offered support to pt. We reviewed that if her needs to stay in the hospital until after 3pm waiting for a ride it's probably okay, and that if the hospital wants him home sooner they can find a way for him to get home. SW spoke w/pt about setting boundaries with her daughters, and encouraged pt to get back into counseling as they may be able to help her with this. Pt states understanding, thanked SW for talking w/her. SW spoke again w/Carolin from [facility], confirmed they will see her Sunday or Sunday. ALEJANDRO Mccallum Original Note: SW met w/pt in room again today to offer support and check on prior level of function, discharge plan. PCP: Dr. Blanco Specialists: Dr. Calderon Insurance/Prescription Coverage: [place] Pharmacy: [facility] [place] LNOK: Pt lives w/ and grandson, has six children, multiple grandchildren and great grandchildren. Many live local and are supportive. LW/POA: Pt thinks her youngest son is medical POA. Living arrangements: Pt lives in a two story home w/ and grandson. Pt is able to get up and down the stairs. Prior level of function: Pt independent with most ADL's, does have an aide from [employer] once per week who is to help with cleaning. Pt also has [employer], but does cook sometimes. Pt has Passport, is not certain of her telephonic nurse case manager's name. Pt's grandson helps with the laundry, they go to a laundry mat as they do not have a washer and dryer. Pt does still drive. DME: Pt has a rollator, cane, and a tub chair--though she states the tub chair is not steady as her tub is so deep. HHC: Pt has had HHC in the past w/[facility], would like this again. Pt also has aide services through [employer], though she states her aide is not always helpful. SW spoke w/pt about her initially. She states he had a stent placed yesterday, they fixed a lesion in his heart and he is going home from [place] today. She is glad but is still scared. She is worried about doing too much at home, and she is not to go home until tomorrow. We spoke about pt's anxiety, SW spoke w/her about counseling. She has been in counseling before, and may consider returning. She speaks w/her PCP about her anxiety, he prescribes Klonopin and she states this helps. She has been to [facility], SW gave her the phone number for this. SW spoke w/pt about palliative care as well, gave her brochure. [facility] advised pt she can speak w/PCP in future if she would like a referral, she does not want referral at this time. LINH asked pt about DME company for O2 should it be needed, list provided of in network DME companies. Pt has not preference. LINH also gave pt list of HHC agencies in network w/pt's insurance, she would like [facility]. LINH explained will make referral. LINH called [facility], referral made, waiting to hear back from Carolin when they can see her for the first visit. LINH called [employer], telephonic nurse case manager is Cyn Rahman, message left letting her know pt is here, may go home on O2 and with home nursing. LINH called [employer] back, spoke w/covering telephonic nurse case manager and let them know. She confirmed pt has 7 delivered meals per week, 3 hours of aide services per week with [employer], and a [employer]. LINH did let the covering telephonic nurse case manager know that pt is not satisfied with her aide services. SW let CM know pt does not have a preference for O2 company. Once SW hears back from [facility] will let pt know when they can start working w/pt. ALEJANDRO Mccallum
[2019-04-04] MEDS: Insulin Lispro 100 UNIT/ML INSULN.PEN SC ×3 (11:59→21:47)
[2019-04-04 12:15] LABS: Bedside Glucose 228 mg/dL (70-110)
--- NOTE | 2019-04-04 12:20 | PN_ITS ---
<Annabelle Marx - Last Filed: 04/04/19 12:28> Subjective: Patient seen and examined. Reports improvement in breathing. Complains of difficulty bringing up sputum and persistent cough. Otherwise feeling improved. - Physical Exam Vitals/I&O's: Vital Signs Temp Pulse Resp BP Pulse Ox 97.9 F 76 20 H 124/79 H 96 04/04/19 09:25 04/04/19 09:25 04/04/19 09:25 04/04/19 09:25 04/04/19 09:25 Oxygen Flow Rate (L/min) 1.5 Oxygen Delivery Method Nasal Cannula Weight: 215 lb 6.266 oz Body Mass Index (BMI) 35.8 Finger Stick Blood Glucose 115 Intake and Output for Last 24 Hours 04/02/19 04/03/19 04/04/19 23:59 23:59 23:59 Intake Total 983.75 / 983.75 2671.25 / 2671.25 580 / 580 Balance 983.75 / 983.75 2671.25 / 2671.25 580 / 580 General: Alert, Oriented x3, Cooperative HEENT: Atraumatic, PERRLA, EOMI, Normocephalic Neck: Supple, No JVD, Negative Carotid Bruits Lungs: Clear to auscultation, Diminished Cardiovascular: Regular rate, Regular Rhythm, Normal S1, Normal S2, No murmurs Abdomen: Bowel Sounds Present, Soft, Non Tender, Non-Distended Extremities: No clubbing, No cyanosis, No edema, Capillary Refill Less than 3 Seconds Skin: No rashes, No breakdown Musculoskeletal: No Tenderness to Palpation of Joints or Extremities Neurological: Cranial nerves II-XII grossly intact, Neuro grossly intact Psych/Mental Status: Normal Affect, Appropriate Microbiology Past 72 Hours 04/02/19 17:32 Mucosa - Nose Respiratory Panel (PCR) - Final Laboratory Results 04/03/19 11:00: POC Glucose 233 H 04/03/19 16:41: POC Glucose 283 H 04/03/19 21:30: POC Glucose 403 H 04/04/19 06:18: Sodium 142, Potassium 4.5, Chloride 111 H, Carbon Dioxide 28.0, Anion Gap 3 L, BUN 27 H, Creatinine 1.20 H, Estim Creat Clear Calc 37.01, Est GFR (MDRD) Af Amer 56 L, Est GFR (MDRD) Non-Af 47 L, BUN/Creatinine Ratio 22.5 H , Glucose 146 H, Calcium 8.9, Magnesium 2.0 04/04/19 06:18: WBC 8.9, RBC 4.21, Hgb 12.3, Hct 39.2, MCV 93.1, MCH 29.2, MCHC 31.4 L, RDW Std Deviation 52.0 H, RDW Coeff of [place] 15.1 H, Plt Count 214, MPV 10.8, Immature Gran % (Auto) 1.000 H, Neut % (Auto) 67.5, Lymph % (Auto) 24.0, Garden % (Auto) 6.2, Eos % (Auto) 1.0, Baso % (Auto) 0.3, Absolute Neuts (auto) 6.0, Absolute Lymphs (auto) 2.13, Nucleated RBC % 0 04/04/19 06:36: POC Glucose 130 H 04/04/19 11:57: POC Glucose 228 H Current Medications Acetaminophen (Tylenol) 650 mg PO Q6H PRN PRN PRN Reason: Pain Score 1-3/Temp > 100.7 F Last Admin: 04/04/19 08:59 Dose: 650 mg Documented by: Albuterol Sulfate (Ventolin Aerosols) 2.5 mg INHALATION Q2H PRN PRN PRN Reason: SOB/Wheezing Albuterol/Ipratropium (Duoneb) 3 ml INHALATION Q6H.RT [facility]OMAS Last Admin: 04/04/19 07:20 Dose: 3 ml Documented by: Amlodipine Besylate (Norvasc) 5 mg PO QHS [facility] Last Admin: 04/03/19 21:35 Dose: 5 mg Documented by: Atorvastatin Calcium (Lipitor) 20 mg PO QHS [facility] Last Admin: 04/03/19 21:35 Dose: 20 mg Documented by: Clonazepam (Klonopin) 1 mg PO TID PRN PRN PRN Reason: ANXIETY Last Admin: 04/04/19 08:58 Dose: 1 mg Documented by: Dextrose (D50w Syringe) 0 gm IV X1 PRN; Protocol PRN Reason: Hypoglycemia Dibucaine (Dibucaine) 1 applic TOPICAL 4X/DAY PRN PRN; Protocol PRN Reason: Hemorrhoids Last Admin: 04/04/19 06:50 Dose: 1 applicatio Documented by: Famotidine (Pepcid) 20 mg PO QHS [facility] Last Admin: 04/03/19 21:35 Dose: 20 mg Documented by: Fenofibrate (Tricor) 145 mg PO QHS [facility] Last Admin: 04/03/19 21:35 Dose: 145 mg Documented by: Glucagon () 1 mg IM .X1 PRN PRN Reason: Hypoglycemia Guaifenesin (Robitussin) 20 ml PO Q4H PRN PRN PRN Reason: COUGH Hydralazine HCl (Apresoline Iv) 5 mg IV Q4H PRN PRN PRN Reason: BLOOD PRESSURE Hydrochlorothiazide (Hctz) 25 mg PO QAM [facility] Last Admin: 04/04/19 08:27 Dose: 25 mg Documented by: Insulin Human Lispro (Humalog Kwikpen (Bkc)) 0 unit SC [facility]; Protocol Last Admin: 04/04/19 11:59 Dose: 2 u Documented by: Insulin Human NPH (Humulin N (Bkc)) 30 units SC BID [facility] Last Admin: 04/04/19 08:28 Dose: 30 u Documented by: Levofloxacin (Levaquin Tablet) 250 mg PO DAILY@0600 [facility] Last Admin: 04/04/19 06:49 Dose: 250 mg Documented by: Lisinopril (Zestril) 20 mg PO BID [facility] Last Admin: 04/04/19 08:27 Dose: 20 mg Documented by: Ondansetron HCl (Zofran) 4 mg IV Q8H PRN PRN PRN Reason: NAUSEA/VOMITING Prednisone () 40 mg PO DAILY@0800 [facility] Last Admin: 04/04/19 08:27 Dose: 40 mg Documented by: Senna/Docusate Sodium (Senokot-S, Clarice-Colace) 2 tablet PO BID PRN PRN PRN Reason: Constipation Sodium Chloride () 10 - 40 ml IV UD PRN PRN Reason: SALINE FLUSH Warfarin Sodium (Coumadin (Pbkc)) 2.5 mg PO DAILY@1700 [facility] Last Admin: 04/03/19 17:03 Dose: 2.5 mg Documented by: Medical Necessity - Tobacco Use Smoking Status: Former smoker Tobacco Use: Cigarettes Assessment/Plan 1. Acute exacerbation of COPD with associated acute hypoxic respiratory insufficiency-respiratory panel negative. Continue oral prednisone. On oral Levaquin empirically. Albuterol and DuoNeb aerosols. Continue supplement oxygen to maintain O2 at or above 90%. Walking pulse ox prior to discharge. 2. Indeterminate troponin-enzymes trended down. EKG without evidence of ischemia. Echocardiogram demonstrated an EF of 65%, mild mitral valve insufficiency. Suspect demand ischemia as a result of #1. Patient denies chest pain. 3. Type 2 diabetes mellitus-continue home insulin regimen. 4. Chronic kidney disease stage III-at baseline, trend BMP. 5. Hypertension-stable, continue amlodipine, hydrochlorothiazide, lisinopril. 6. Anxiety/depression-continue Klonopin regimen. 7. Hyperlipidemia-continue statin. DVT prophylaxis-Coumadin Discharge planning: Anticipate discharge home tomorrow. This patient was seen by SUSANNAH Saeed under the supervision of Dr. Blair. <Saman Blair - Last Filed: 04/04/19 13:54> - Physical Exam Vitals/I&O's: Vital Signs Temp Pulse Resp BP Pulse Ox 97.9 F 76 20 H 124/79 H 96 04/04/19 09:25 04/04/19 09:25 04/04/19 09:25 04/04/19 09:25 04/04/19 09:25 Oxygen Flow Rate (L/min) 1 Oxygen Delivery Method Nasal Cannula Weight: 97.7 kg Body Mass Index (BMI) 35.8 Finger Stick Blood Glucose 115 Intake and Output for Last 24 Hours 04/02/19 04/03/19 04/04/19 23:59 23:59 23:59 Intake Total 983.75 / 983.75 2671.25 / 2671.25 580 / 580 Balance 983.75 / 983.75 2671.25 / 2671.25 580 / 580 Microbiology Past 72 Hours 04/02/19 17:32 Mucosa - Nose Respiratory Panel (PCR) - Final Laboratory Results 04/03/19 16:41: POC Glucose 283 H 04/03/19 21:30: POC Glucose 403 H 04/04/19 06:18: Sodium 142, Potassium 4.5, Chloride 111 H, Carbon Dioxide 28.0, Anion Gap 3 L, BUN 27 H, Creatinine 1.20 H, Estim Creat Clear Calc 37.01, Est GFR (MDRD) Af Amer 56 L, Est GFR (MDRD) Non-Af 47 L, BUN/Creatinine Ratio 22.5 H , Glucose 146 H, Calcium 8.9, Magnesium 2.0 04/04/19 06:18: WBC 8.9, RBC 4.21, Hgb 12.3, Hct 39.2, MCV 93.1, MCH 29.2, MCHC 31.4 L, RDW Std Deviation 52.0 H, RDW Coeff of [place] 15.1 H, Plt Count 214, MPV 10.8, Immature Gran % (Auto) 1.000 H, Neut % (Auto) 67.5, Lymph % (Auto) 24.0, Garden % (Auto) 6.2, Eos % (Auto) 1.0, Baso % (Auto) 0.3, Absolute Neuts (auto) 6.0, Absolute Lymphs (auto) 2.13, Nucleated RBC % 0 04/04/19 06:36: POC Glucose 130 H 04/04/19 11:57: POC Glucose 228 H Current Medications Acetaminophen (Tylenol) 650 mg PO Q6H PRN PRN PRN Reason: Pain Score 1-3/Temp > 100.7 F Last Admin: 04/04/19 08:59 Dose: 650 mg Documented by: Albuterol Sulfate (Ventolin Aerosols) 2.5 mg INHALATION Q2H PRN PRN PRN Reason: SOB/Wheezing Albuterol/Ipratropium (Duoneb) 3 ml INHALATION Q6H.RT [facility] Last Admin: 04/04/19 13:20 Dose: Not Given Documented by: Amlodipine Besylate (Norvasc) 5 mg PO QHS [facility] Last Admin: 04/03/19 21:35 Dose: 5 mg Documented by: Atorvastatin Calcium (Lipitor) 20 mg PO QHS [facility] Last Admin: 04/03/19 21:35 Dose: 20 mg Documented by: Clonazepam (Klonopin) 1 mg PO TID PRN PRN PRN Reason: ANXIETY Last Admin: 04/04/19 08:58 Dose: 1 mg Documented by: Dextrose (D50w Syringe) 0 gm IV X1 PRN; Protocol PRN Reason: Hypoglycemia Dibucaine (Dibucaine) 1 applic TOPICAL 4X/DAY PRN PRN; Protocol PRN Reason: Hemorrhoids Last Admin: 04/04/19 06:50 Dose: 1 applicatio Documented by: Famotidine (Pepcid) 20 mg PO QHS [facility] Last Admin: 04/03/19 21:35 Dose: 20 mg Documented by: Fenofibrate (Tricor) 145 mg PO QHS [facility] Last Admin: 04/03/19 21:35 Dose: 145 mg Documented by: Glucagon () 1 mg IM .X1 PRN PRN Reason: Hypoglycemia Guaifenesin (Robitussin) 20 ml PO Q4H PRN PRN PRN Reason: COUGH Hydralazine HCl (Apresoline Iv) 5 mg IV Q4H PRN PRN PRN Reason: BLOOD PRESSURE Hydrochlorothiazide (Hctz) 25 mg PO QAM [facility] Last Admin: 04/04/19 08:27 Dose: 25 mg Documented by: Insulin Human Lispro (Humalog Kwikpen (Bkc)) 0 unit SC [facility]; Protocol Last Admin: 04/04/19 11:59 Dose: 2 u Documented by: Insulin Human NPH (Humulin N (Bk)) 30 units SC BID [facility] Last Admin: 04/04/19 08:28 Dose: 30 u Documented by: Levofloxacin (Levaquin Tablet) 250 mg PO DAILY@0600 [facility] Last Admin: 04/04/19 06:49 Dose: 250 mg Documented by: Lisinopril (Zestril) 20 mg PO BID [facility] Last Admin: 04/04/19 08:27 Dose: 20 mg Documented by: Ondansetron HCl (Zofran) 4 mg IV Q8H PRN PRN PRN Reason: NAUSEA/VOMITING Prednisone () 40 mg PO DAILY@0800 [facility] Last Admin: 04/04/19 08:27 Dose: 40 mg Documented by: Senna/Docusate Sodium (Senokot-S, Clarice-Colace) 2 tablet PO BID PRN PRN PRN Reason: Constipation Sodium Chloride () 10 - 40 ml IV UD PRN PRN Reason: SALINE FLUSH Warfarin Sodium (Coumadin (Pbkc)) 2.5 mg PO DAILY@1700 [facility] Last Admin: 04/03/19 17:03 Dose: 2.5 mg Documented by: Assessment/Plan This patient was seen in conjunction with SUSANNAH Saeed . I have independently interviewed and examined the patient and reviewed pertinent historical, laboratory, and other data. Please refer to Annabelle Francisco J, HARNESS TIER-C note for details of this patient's presentation, findings, and recommendations. I have reviewed Annabelle Marx NP-C note and concur with documented findings. In brief, patient is a 73-year-old lady with history of COPD admitted with progressive shortness of breath and assessment of COPD with acute exacerbation made admitted to a monitored bed for further management. Patient was also found to have elevated troponin on admission. ?04/04/2019: Patient seen admitted to some improvement in her breathing status. Physical Examination: GENERAL: Dyspneic at rest HEENT: Atraumatic; EYES; Anicteric, Normal Conjunctiva NECK; supple, normal thyroid, RESPIRATORY: Diminished to auscultation CARDIOVASCULAR: Regular S1 S2, GI: soft, normoactive bowel sounds, : No Renal angle tenderness; EXTREMITIES: No edema, no clubbing, MUSCULOSKELETAL: no muscle waisting NEURO: Awake; no lateralizing signs. SKIN: No Rash PSYCH; Flat affect Assessment: 1. COPD with acute exacerbation 2. Elevated troponin secondary to non-STEMI type II as a result of demand ischemia from above 3. Diabetes mellitus type 2 4. Chronic kidney disease stage III 5. Essential hypertension 6. Dyslipidemia 7. Depression with anxiety 8. DVT prophylaxis Recommendations: 1. I have discussed the results of my overview and impressions with the patient 2. Options for management were reviewed Code Visit Inpatient E&M: 31629 Subs Hosp L2
[2019-04-04 16:55] LABS: Bedside Glucose 342 mg/dL (70-110)
[2019-04-04] MEDS: Atorvastatin Calcium 20 MG Tablet PO (21:39)
[2019-04-04] MEDS: Fenofibrate 145 MG Tablet PO (21:39)
[2019-04-04] MEDS: Famotidine 20 MG Tablet PO (21:39)
[2019-04-04] MEDS: amLODIPine 5 MG Tablet PO (21:39)
[2019-04-04 21:50] LABS: Bedside Glucose 328 mg/dL (70-110)
[2019-04-05] VITALS (9 sets, daily range): BP systolic 138–170; BP diastolic 54–74; PULSE 54–71; RESP 16–19; TEMP 36.3–36.7; O2SAT 93–97
[2019-04-05] MEDS: levoFLOXacin 250 MG Tablet PO (05:40)
[2019-04-05] MEDS: Insulin Lispro 100 UNIT/ML INSULN.PEN SC ×2 (07:06→11:54)
[2019-04-05 07:11] LABS: Bedside Glucose 157 mg/dL (70-110)
[2019-04-05] MEDS: Ipratropium/Albuterol Sulfate 3 ML AMPUL.NEB INHALATION (07:35)
[2019-04-05] MEDS: predniSONE 20 MG Tablet 40 MG PO (08:59)
[2019-04-05] MEDS: clonazePAM 1 MG Tablet PO (08:59)
[2019-04-05] MEDS: Insulin NPH Human 100 UNITS/ML PEN 30 UNITS SC (09:00)
[2019-04-05] MEDS: hydroCHLOROthiazide 25 MG Tablet PO (09:00)
[2019-04-05] MEDS: Lisinopril 20 MG Tablet PO (09:01)
[2019-04-05 09:11] LABS: Bedside Glucose 208 mg/dL (70-110)
[2019-04-05] MEDS: Dibucaine 30 GM Tube 1 APPLIC TOPICAL (09:51)
[2019-04-05] MEDS: guaiFENesin 10 ML UDC (200MG/10ML) 20 ML PO (09:52)
--- NOTE | 2019-04-05 11:39 | PCM.DC ---
- Discharge Diagnoses Current Active Problems: Current Active and Chronic Problems (Last Updated 04/02/19 @ 15:54 by Addis Florez MD) COPD exacerbation (Chronic) You will use the following diet at home:: Calorie/Carbohydrate Controlled (specify 1200, 1400, etc) Discharge Activity: Return to Normal Activity Call your doctor if you observe: Shortness of breath, Dizziness, Fainting spells, Chest pain Allergies/Adverse Reactions: Allergies Penicillins Allergy (Verified 04/02/19 13:55) Angioedema rosiglitazone maleate [From Avandia] Allergy (Verified 04/02/19 13:55) hyperglycemia cephalexin [From Keflex] Adverse Reaction (Verified 04/02/19 13:55) Diarrhea doxycycline Adverse Reaction (Verified 04/02/19 13:55) Diarrhea insulin detemir [From Levemir] Adverse Reaction (Verified 04/02/19 13:55) hyperglycemia prednisone Adverse Reaction (Verified 04/02/19 13:55) hyperglycemia HYPERGLYCEMIA Sulfa (Sulfonamide Antibiotics) Adverse Reaction (Verified 04/02/19 13:55) Unknown pt is unsure Medications to take at Discharge Warfarin [Coumadin] 3 mg PO DAILY 08/28/14 Lisinopril [Zestril] 20 mg PO BID #60 tab 02/22/15 Clonazepam [Klonopin] 1 mg PO TID PRN PRN 08/14/15 Famotidine [Pepcid] 20 mg PO QHS 08/14/15 amlodipine 5 mg tablet 5 mg PO QHS 08/28/17 fenofibrate nanocrystallized 145 mg tablet 145 mg PO QHS 08/28/17 hydrochlorothiazide 25 mg tablet 25 mg PO QAM 08/28/17 Insulin NPH Human Isophane [Humulin N] 30 - 35 unit SQ BID 06/25/18 Insulin Regular, Human [Humulin R] See Protocol SQ TID 06/25/18 albuterol sulfate 2.5 mg/3 mL (0.083 %) solution for nebulization 2.5 mg INHALATION Q4H PRN 02/10/19 Simvastatin 40 mg PO QHS 04/02/19 Guaifenesin [Robitussin] 20 ml PO Q4H PRN PRN #1 bottle 04/05/19 Prednisone See Taper PO DAILY #18 tab 04/05/19 levoFLOXacin tablet [Levaquin tablet] 250 mg PO DAILY@0600 #3 tab 04/05/19 The following prescriptions were given: levoFLOXacin tablet [Levaquin tablet] 250 mg PO DAILY@0600 #3 tab Transmission Status: Pending to [facility] Prednisone See Taper PO DAILY #18 tab Transmission Status: Pending to [facility] Guaifenesin [Robitussin] 20 ml PO Q4H PRN PRN #1 bottle PRN Reason: COUGH Transmission Status: Pending to [facility] Primary Care Physician: Rufus Blanco DO [Primary Care Provider] - Please follow up with your Primary Care Physician in: 1 Week Test Results: Test results from this visit will be discussed in further detail at your follow-up appointment, if applicable. Please Follow Up With: Luther Calderon MD When: 1-2 Weeks, may see PHYSICIAN ASST/PA Proposed Discharge Date: 04/05/19
--- NOTE | 2019-04-05 11:42 | DS.PCM_ITS ---
<Annabelle Marx - Last Filed: 04/05/19 11:47> Discharge Date and Diagnosis Date of Admission: 04/02/19 Date of Discharge: 04/05/19 - Primary Discharge Diagnosis 1. Acute exacerbation of COPD with associated acute hypoxic respiratory insufficiency 2. Indeterminate troponin-ACS ruled out. 3. Type 2 diabetes mellitus 4. Chronic kidney disease stage III 5. Hypertension 6. Anxiety/depression 7. Hyperlipidemia - Secondary Discharge Diagnosis Chronic Problems (Last Updated 04/02/19 @ 15:54 by Addis Florez MD) COPD exacerbation (Chronic) Allergic rhinitis (Chronic) Lung nodule (Chronic) 5.5 mm LLL Stage 2 moderate COPD by GOLD classification (Chronic) Menieres disease (Chronic) Gastroesophageal reflux disease with hiatal hernia (Chronic) Essential hypertension (Chronic) Dyslipidemia (Chronic) Diabetes mellitus, type 2 (Chronic) DVT of lower extremity (deep venous thrombosis) (Chronic) on coumadin Obesity (BMI 30-39.9) (Chronic) Depression (Chronic) Chronic renal failure, stage 3 (moderate) (Chronic) Anxiety disorder (Chronic) Hospital Course and Treatment Imaging Results: Diagnostic Data Chest X-Ray 04/02/19 13:55 IMPRESSION: No acute abnormality is present. Electronically Signed: Ketan Albert, at 14:48 EST , Service support , Operations: None Procedures: 2-D Echocardiogram Summary of Care Provided: The patient is a 73 year old F admitted 04/02/2019 due to shortness of breath and cough. 1. Acute exacerbation of COPD with associated acute hypoxic respiratory insufficiency-respiratory panel negative. Continue oral prednisone with taper at discharge. On oral Levaquin empirically, will complete 5-day course. Continue home albuterol inhaler as needed. Walking pulse ox completed 2 times prior to discharge and patient did not require further supplemental oxygen at rest or with ambulation on room air. Patient follows with Dr. Calderon as outpatient, follow-up with pulmonary medicine in 1 to 2 weeks. Follow-up with primary care provider in 1 week. 2. Indeterminate troponin-enzymes trended down. EKG without evidence of ischemia. Echocardiogram demonstrated an EF of 65%, mild mitral valve insufficiency. Suspect demand ischemia as a result of #1. Patient denies chest pain. 3. Type 2 diabetes mellitus-continue home insulin regimen. 4. Chronic kidney disease stage III-at baseline, trend BMP. 5. Hypertension-stable, continue amlodipine, hydrochlorothiazide, lisinopril. 6. Anxiety/depression-continue Klonopin regimen. 7. Hyperlipidemia-continue statin. General: Alert, Oriented x3, Cooperative HEENT: Atraumatic, PERRLA, EOMI, Normocephalic Neck: Supple, No JVD, Negative Carotid Bruits Lungs: Clear to auscultation, Diminished Cardiovascular: Regular rate, Regular Rhythm, Normal S1, Normal S2, No murmurs Abdomen: Bowel Sounds Present, Soft, Non Tender, Non-Distended Extremities: No clubbing, No cyanosis, No edema, Capillary Refill Less than 3 Seconds Skin: No rashes, No breakdown Musculoskeletal: No Tenderness to Palpation of Joints or Extremities Neurological: Cranial nerves II-XII grossly intact, Neuro grossly intact Psych/Mental Status: Normal Affect, Appropriate Patient seen and examined prior to discharge. Physical assessment as noted above. Patient is stable for discharge with follow up recommendations as noted above. This patient was seen by SUSANNAH Saeed under the supervision of Dr. Blair. - Physical Exam Vitals/I&O's: Vital Signs Temp Pulse Resp BP Pulse Ox 97.5 F L 61 18 163/68 H 95 04/05/19 08:49 04/05/19 11:05 04/05/19 08:49 04/05/19 09:58 04/05/19 10:01 Oxygen Flow Rate (L/min) [ 0 AMBULATING on Room Air] Oxygen Flow Rate (L/min) [At 0 REST on Room Air] Oxygen Flow Rate (L/min) 2 Oxygen Delivery Method Nasal Cannula Weight: 215 lb 6.266 oz Body Mass Index (BMI) 35.8 Finger Stick Blood Glucose 115 Intake and Output for Last 24 Hours 04/03/19 04/04/19 04/05/19 23:59 23:59 23:59 Intake Total 2671.25 / 2671.25 1180 / 1180 240 / 240 Balance 2671.25 / 2671.25 1180 / 1180 240 / 240 Microbiology Past 72 Hours 04/02/19 17:32 Mucosa - Nose Respiratory Panel (PCR) - Final Laboratory Results 04/04/19 11:57: POC Glucose 228 H 04/04/19 16:45: POC Glucose 342 H 04/04/19 21:45: POC Glucose 328 H 04/05/19 07:02: POC Glucose 157 H 04/05/19 08:48: POC Glucose 208 H Current Medications Acetaminophen (Tylenol) 650 mg PO Q6H PRN PRN PRN Reason: Pain Score 1-3/Temp > 100.7 F Last Admin: 04/04/19 08:59 Dose: 650 mg Documented by: Albuterol Sulfate (Ventolin Aerosols) 2.5 mg INHALATION Q2H PRN PRN PRN Reason: SOB/Wheezing Albuterol/Ipratropium (Duoneb) 3 ml INHALATION Q6H.RT [facility] Last Admin: 04/05/19 07:35 Dose: 3 ml Documented by: Amlodipine Besylate (Norvasc) 5 mg PO QHS [facility] Last Admin: 04/04/19 21:39 Dose: 5 mg Documented by: Atorvastatin Calcium (Lipitor) 20 mg PO QHS [facility] Last Admin: 04/04/19 21:39 Dose: 20 mg Documented by: Clonazepam (Klonopin) 1 mg PO TID PRN PRN PRN Reason: ANXIETY Last Admin: 04/05/19 08:59 Dose: 1 mg Documented by: Dextrose (D50w Syringe) 0 gm IV X1 PRN; Protocol PRN Reason: Hypoglycemia Dibucaine (Dibucaine) 1 applic TOPICAL 4X/DAY PRN PRN; Protocol PRN Reason: Hemorrhoids Last Admin: 04/05/19 09:51 Dose: 1 applicatio Documented by: Famotidine (Pepcid) 20 mg PO QHS [facility] Last Admin: 04/04/19 21:39 Dose: 20 mg Documented by: Fenofibrate (Tricor) 145 mg PO QHS [facility] Last Admin: 04/04/19 21:39 Dose: 145 mg Documented by: Glucagon () 1 mg IM .X1 PRN PRN Reason: Hypoglycemia Guaifenesin (Robitussin) 20 ml PO Q4H PRN PRN PRN Reason: COUGH Last Admin: 04/05/19 09:52 Dose: 20 ml Documented by: Hydralazine HCl (Apresoline Iv) 5 mg IV Q4H PRN PRN PRN Reason: BLOOD PRESSURE Hydrochlorothiazide (Hctz) 25 mg PO QAM [facility] Last Admin: 04/05/19 09:00 Dose: 25 mg Documented by: Insulin Human Lispro (Humalog Kwikpen (Bkc)) 0 unit SC ACHS [facility]; Protocol Last Admin: 04/05/19 07:06 Dose: 1 u Documented by: Insulin Human NPH (Humulin N (Bk)) 30 units SC BID [facility] Last Admin: 04/05/19 09:00 Dose: 30 u Documented by: Levofloxacin (Levaquin Tablet) 250 mg PO DAILY@0600 [facility] Last Admin: 04/05/19 05:40 Dose: 250 mg Documented by: Lisinopril (Zestril) 20 mg PO BID [facility] Last Admin: 04/05/19 09:01 Dose: 20 mg Documented by: Ondansetron HCl (Zofran) 4 mg IV Q8H PRN PRN PRN Reason: NAUSEA/VOMITING Prednisone () 40 mg PO DAILY@0800 [facility] Last Admin: 04/05/19 08:59 Dose: 40 mg Documented by: Senna/Docusate Sodium (Senokot-S, Clarice-Colace) 2 tablet PO BID PRN PRN PRN Reason: Constipation Sodium Chloride () 10 - 40 ml IV UD PRN PRN Reason: SALINE FLUSH Warfarin Sodium (Coumadin (Pbkc)) 2.5 mg PO DAILY@1700 [facility] Last Admin: 04/04/19 16:48 Dose: 2.5 mg Documented by: Discharge Diet: Carb Control Diet Discharge Activity: Return to Normal Activity Call your doctor if you observe: Shortness of breath, Dizziness, Fainting spells, Chest pain Home Medications: Medications to take at Discharge Warfarin [Coumadin] 3 mg PO DAILY 08/28/14 Lisinopril [Zestril] 20 mg PO BID #60 tab 02/22/15 Clonazepam [Klonopin] 1 mg PO TID PRN PRN 08/14/15 Famotidine [Pepcid] 20 mg PO QHS 08/14/15 amlodipine 5 mg tablet 5 mg PO QHS 08/28/17 fenofibrate nanocrystallized 145 mg tablet 145 mg PO QHS 08/28/17 hydrochlorothiazide 25 mg tablet 25 mg PO QAM 08/28/17 Insulin NPH Human Isophane [Humulin N] 30 - 35 unit SQ BID 06/25/18 Insulin Regular, Human [Humulin R] See Protocol SQ TID 06/25/18 albuterol sulfate 2.5 mg/3 mL (0.083 %) solution for nebulization 2.5 mg INHALATION Q4H PRN 02/10/19 Simvastatin 40 mg PO QHS 04/02/19 Guaifenesin [Robitussin] 20 ml PO Q4H PRN PRN #1 bottle 04/05/19 Prednisone See Taper PO DAILY #18 tab 04/05/19 levoFLOXacin tablet [Levaquin tablet] 250 mg PO DAILY@0600 #3 tab 04/05/19 Following Prescrptions Were Given to Patient: levoFLOXacin tablet [Levaquin tablet] 250 mg PO DAILY@0600 #3 tab Transmission Status: Received by [facility] Prednisone See Taper PO DAILY #18 tab Transmission Status: Received by [facility] Guaifenesin [Robitussin] 20 ml PO Q4H PRN PRN #1 bottle PRN Reason: COUGH Transmission Status: Received by [facility] Primary Care Physician: Rufus Blanco DO [Primary Care Provider] - Please follow up with your Primary Care Physician in: 1 Week Please Follow Up With: Luther Calderon MD When: 1-2 Weeks, may see ELECTRICIAN/PA Disposition: Home with Home Health Minutes spent on discharge:: 35 Patient Condition:: Stable Medical Necessity - Tobacco Use Smoking Status: Former smoker Tobacco Use: Cigarettes Meaningful Use Info Meaningful Use Diagnoses (Choose all that apply): None applicable <Saman Blair - Last Filed: 04/05/19 12:13> Discharge Date and Diagnosis - Secondary Discharge Diagnosis Chronic Problems (Last Updated 04/02/19 @ 15:54 by Addis Florez MD) COPD exacerbation (Chronic) Allergic rhinitis (Chronic) Lung nodule (Chronic) 5.5 mm LLL Stage 2 moderate COPD by GOLD classification (Chronic) Menieres disease (Chronic) Gastroesophageal reflux disease with hiatal hernia (Chronic) Essential hypertension (Chronic) Dyslipidemia (Chronic) Diabetes mellitus, type 2 (Chronic) DVT of lower extremity (deep venous thrombosis) (Chronic) on coumadin Obesity (BMI 30-39.9) (Chronic) Depression (Chronic) Chronic renal failure, stage 3 (moderate) (Chronic) Anxiety disorder (Chronic) Hospital Course and Treatment Summary of Care Provided: This patient was seen in conjunction with SUSANNAH Saeed . I have independently interviewed and examined the patient and reviewed pertinent historical, laboratory, and other data. Please refer to SUSANNAH Saeed note for details of this patient's presentation, findings, and recommendations. I have reviewed SUSANNAH Saeed note and concur with documented findings. In brief, patient is a 73-year-old lady with history of COPD admitted with progressive shortness of breath and assessment of COPD with acute exacerbation made admitted to a monitored bed for further management. Patient was also found to have elevated troponin on admission. Assessment: 1. COPD with acute exacerbation 2. Elevated troponin secondary to non-STEMI type II as a result of demand ischemia from above 3. Diabetes mellitus type 2 4. Chronic kidney disease stage III 5. Essential hypertension 6. Dyslipidemia 7. Depression with anxiety 8. DVT prophylaxis Hospital course: As documented above - Physical Exam Vitals/I&O's: Vital Signs Temp Pulse Resp BP Pulse Ox 97.4 F L 63 18 160/74 H 93 04/05/19 12:00 04/05/19 12:00 04/05/19 12:00 04/05/19 12:00 04/05/19 12:00 Oxygen Flow Rate (L/min) [ 0 AMBULATING on Room Air] Oxygen Flow Rate (L/min) [At 0 REST on Room Air] Oxygen Flow Rate (L/min) 2 Oxygen Delivery Method Room Air Weight: 97.7 kg Body Mass Index (BMI) 35.8 Finger Stick Blood Glucose 115 Intake and Output for Last 24 Hours 04/03/19 04/04/19 04/05/19 23:59 23:59 23:59 Intake Total 2671.25 / 2671.25 1180 / 1180 600 / 600 Balance 2671.25 / 2671.25 1180 / 1180 600 / 600 Microbiology Past 72 Hours 04/02/19 17:32 Mucosa - Nose Respiratory Panel (PCR) - Final Laboratory Results 04/04/19 11:57: POC Glucose 228 H 04/04/19 16:45: POC Glucose 342 H 04/04/19 21:45: POC Glucose 328 H 04/05/19 07:02: POC Glucose 157 H 04/05/19 08:48: POC Glucose 208 H Current Medications Acetaminophen (Tylenol) 650 mg PO Q6H PRN PRN PRN Reason: Pain Score 1-3/Temp > 100.7 F Last Admin: 04/04/19 08:59 Dose: 650 mg Documented by: Albuterol Sulfate (Ventolin Aerosols) 2.5 mg INHALATION Q2H PRN PRN PRN Reason: SOB/Wheezing Albuterol/Ipratropium (Duoneb) 3 ml INHALATION Q6H.RT [facility] Last Admin: 04/05/19 07:35 Dose: 3 ml Documented by: Amlodipine Besylate (Norvasc) 5 mg PO QHS [facility] Last Admin: 04/04/19 21:39 Dose: 5 mg Documented by: Atorvastatin Calcium (Lipitor) 20 mg PO QHS [facility] Last Admin: 04/04/19 21:39 Dose: 20 mg Documented by: Clonazepam (Klonopin) 1 mg PO TID PRN PRN PRN Reason: ANXIETY Last Admin: 04/05/19 08:59 Dose: 1 mg Documented by: Dextrose (D50w Syringe) 0 gm IV X1 PRN; Protocol PRN Reason: Hypoglycemia Dibucaine (Dibucaine) 1 applic TOPICAL 4X/DAY PRN PRN; Protocol PRN Reason: Hemorrhoids Last Admin: 04/05/19 09:51 Dose: 1 applicatio Documented by: Famotidine (Pepcid) 20 mg PO QHS [facility] Last Admin: 04/04/19 21:39 Dose: 20 mg Documented by: Fenofibrate (Tricor) 145 mg PO QHS [facility] Last Admin: 04/04/19 21:39 Dose: 145 mg Documented by: Glucagon () 1 mg IM .X1 PRN PRN Reason: Hypoglycemia Guaifenesin (Robitussin) 20 ml PO Q4H PRN PRN PRN Reason: COUGH Last Admin: 04/05/19 09:52 Dose: 20 ml Documented by: Hydralazine HCl (Apresoline Iv) 5 mg IV Q4H PRN PRN PRN Reason: BLOOD PRESSURE Hydrochlorothiazide (Hctz) 25 mg PO [facility] Last Admin: 04/05/19 09:00 Dose: 25 mg Documented by: Insulin Human Lispro (Humalog Kwikpen (Bkc)) 0 unit SC [facility]; Protocol Last Admin: 04/05/19 11:54 Dose: 1 u Documented by: Insulin Human NPH (Humulin N (Bkc)) 30 units SC BID [facility] Last Admin: 04/05/19 09:00 Dose: 30 u Documented by: Levofloxacin (Levaquin Tablet) 250 mg PO DAILY@0600 [facility] Last Admin: 04/05/19 05:40 Dose: 250 mg Documented by: Lisinopril (Zestril) 20 mg PO BID [facility] Last Admin: 04/05/19 09:01 Dose: 20 mg Documented by: Ondansetron HCl (Zofran) 4 mg IV Q8H PRN PRN PRN Reason: NAUSEA/VOMITING Prednisone () 40 mg PO DAILY@0800 [facility] Last Admin: 04/05/19 08:59 Dose: 40 mg Documented by: Senna/Docusate Sodium (Senokot-S, Clarice-Colace) 2 tablet PO BID PRN PRN PRN Reason: Constipation Sodium Chloride () 10 - 40 ml IV UD PRN PRN Reason: SALINE FLUSH Warfarin Sodium (Coumadin (Pbkc)) 2.5 mg PO DAILY@1700 [facility] Last Admin: 04/04/19 16:48 Dose: 2.5 mg Documented by: Code Visit Inpatient E&M: [id number] Disch Hosp
[2019-04-05 12:06] LABS: Bedside Glucose 171 mg/dL (70-110)
--- NOTE | 2019-04-05 12:41 | NURSING ---
This nurse reviewed charting of SN Luann
--- NOTE | 2019-04-07 14:44 | CASEMGMT ---
Case Management DC F/u Call: DC Date: 04/05/19 DC Diagnosis: 1. Acute exacerbation of COPD with associated acute hypoxic respiratory insufficiency, 2. Indeterminate troponin-ACS ruled out., 3. Type 2 diabetes mellitus, 4. Chronic kidney disease stage III, 5. Hypertension, 6. Anxiety/depression, 7. Hyperlipidemia DC Disposition: Home with [facility] Lace/Strata: 10/08 Called patient cell number listed on demographics, answered and this advertising copy writer introduced self and role. Patient states has been taking her Dc medications, has s/w [facility] and they are supposed to come out tomorrow. Has not made a DC f/u appointment yet but confirmed has the number to do so and this advertising copy writer encouraged patient to call to get checked out. States still having a cough and doing the same, last dose of abx tomorrow. Denies any questions, issues or concerns with her aftercare instructions, medications or f/u. Thanked patient for choosing care at [facility] and ended conversation. Sridhar Fraser RNCM
== END 2019-04-05 13:21 | disposition home health service (06) | DRG 191 ==
LOC: ED 14:28 → PCU 16:04
PROVIDERS: Nurse Practitioner Family; Admitting Provider Hospitalist; Emergency Provider Emergency Medicine; Family Provider Family Medicine; PCP Family Medicine; Referring Provider Hospitalist; Visit Provider Internal Medicine
DX: J44.1 Chronic obstructive pulmonary disease with (acute) exacerbation (principal); I24.8 Other forms of acute ischemic heart disease; N18.3 Chronic kidney disease, stage 3 (moderate); E11.22 Type 2 diabetes mellitus with diabetic chronic kidney disease; I12.9 Hypertensive chronic kidney disease with stage 1 through stage 4 chronic kidney disease, or unspecified chronic kidney disease; E78.5 Hyperlipidemia, unspecified; F41.8 Other specified anxiety disorders; R09.02 Hypoxemia; R06.89 Other abnormalities of breathing; I34.0 Nonrheumatic mitral (valve) insufficiency; J30.9 Allergic rhinitis, unspecified; Z79.4 Long term (current) use of insulin; Z87.891 Personal history of nicotine dependence; E66.9 Obesity, unspecified; Z68.35 Body mass index [BMI] 35.0-35.9, adult; Z79.01 Long term (current) use of anticoagulants
CPT/HCPCS: 36415; 71045; 80048; 82962; 83735; 83880; 84484; 85025; 85610; 87633; 93005; 93306; 94640; 94667; 94668; 97116; 97162; 97166; 97530; 97535; 99251; 99283; 99406; J7030; Q9957; A4216; G0463

== ENCOUNTER 2019-04-21 09:47 | Emergency (ER) | payer MEDICARE, MEDICAID, SELFPAY ==
[2019-04-02 19:53] VITALS: BMI 35.8
[2019-04-21] VITALS (9 sets, daily range): BP systolic 144–167; BP diastolic 53–74; PULSE 69–93; RESP 16–28; TEMP 36.6; O2SAT 92–93; BMI 34.9
--- NOTE | 2019-04-21 10:03 | EKG12_ITS ---
Test Reason : Blood Pressure : / mmHG Vent. Rate : 067 BPM Atrial Rate : 067 BPM P-R Int : 140 ms QRS Dur : 084 ms QT Int : 404 ms P-R-T Axes : 058 016 013 degrees QTc Int : 426 ms Normal sinus rhythm Nonspecific ST abnormality Abnormal ECG Confirmed by LEE TORRES, LIZETTE ([id number]), video news editor SHEELA CAAL ([id number]) on 04/24/2019 9:22:45 AM Referred By: CHELO Confirmed By:LIZETTE HOWARD MD
[2019-04-21 10:18] LABS: Absolute Lymphocyte Count 1.62 X10^3/uL (0.83-4.51); Absolute Neutrophil Count 4.2 X10^3/uL (2.0-7.7); Basophil# 0.02 X10^3/uL; Basophil% 0.3 % (0-1); Eosinophil# 0.26 X10^3/uL; Eosinophils% 3.7 % (0-5); Hematocrit 35.9 % (37-47); Hemoglobin 11.3 g/dL (12.0-15.0); Lymphocyte # 1.62 X10^3/ul (4.0); Lymphocyte % 23.2 % (19-41); Mean Corp Hgb Conc 31.5 g/dL (32-36); Mean Corpuscular Hgb 29.3 pg (27.0-32.0); Mean Platelet Vol. 10.5 fl (6.2-12.0); Monocyte# 0.79 X10^3/uL; Monocyte% 11.3 % (0-10); NRBC Flagged by Analyzer 0 % (0-5); Neutrophil # 4.24 X10^3/uL (2.7-7.7); Neutrophil % 60.8 % (47-70); Platelet Count 169 K/mm3 (150-450); RBC Distribution Width CV 15.7 % (11.6-14.6); RBC Distribution Width SD 52.8 fl (35.1-43.9); Red Blood Count 3.86 M/mm3 (4.2-5.4)
[2019-04-21] MEDS: Ipratropium/Albuterol Sulfate 3 ML AMPUL.NEB INHALATION (10:23)
[2019-04-21 10:36] LABS: ALB/GLOB Ratio 0.9 RATIO (0.9-2.4); AST(SGOT) 16 U/L (15-37); Alanine Aminotransfer ALT/SGPT 42 U/L (13-56); Albumin, Serum 3.3 g/dL (3.2-5.0); Alkaline Phosphatase 81 U/L (45-117); Anion Gap 5 (5-15); BUN 19 mg/dL (7-18); BUN/Creat Ratio 14.6 RATIO (10-20); Calcium,Total 8.9 mg/dL (8.5-10.1); Chloride 109 mmol/L (98-107); EST Glomerular Filtration Rate 42 mL/min (>60); Est Glom Filt Rate - Afr Amer 51 mL/min (>60); Estimated Creatinine Clearance 34.16 ml/min; Globulin 3.7 g/dL (2.2-4.2); Glucose 132 mg/dL (74-106); Potassium 4.1 mmol/L (3.5-5.1); Sodium Level 141 mmol/L (136-145)
[2019-04-21] MEDS: Albuterol 2.5 MG/3 ML VIAL.NEB. INHALATION ×4 (10:44→13:30)
[2019-04-21 10:45] LABS: BNP,B-Type NATRIURETIC PEPTIDE 91.2 pg/mL (0-100)
--- NOTE | 2019-04-21 11:25 | RAD_ITS ---
STUDY: X-RAY CHEST REASON FOR EXAM: Female, 73 years old. Edema, shortness of breath with wheezing and coughing for 2 weeks. TECHNIQUE: Frontal and lateral views of the chest. COMPARISON: April 02, 2019 FINDINGS: Stable hyperexpansion. There is no demonstrated pleural abnormality. Cardiomegaly unchanged. Normal mediastinum and hayder. Normal visualized pulmonary arteries. Normal visualized aortic arch and descending thoracic aorta. Moderate thoracolumbar spondylosis. Normal visualized ribs, clavicles, and shoulders. There is no demonstrated abnormality of the visualized soft tissue structures of the upper abdomen. RAD/Chest PA and Lateral IMPRESSION: Cardiomegaly with hyperexpansion unchanged. No acute finding. Electronically Signed: Jun Armstrong MD at 11:48 EST , Service support ,
[2019-04-21 12:16] LABS: Bedside Glucose 114 mg/dL (70-110)
--- NOTE | 2019-04-21 12:44 | ED.RN ---
RN TO WALK PATIENT PER DR PORTILLO TO SEE HOW PATIENT TOLERATES. RN AT BEDSIDE TO WALK PATIENT, PATIENT STANDS AT THE BEDSIDE WITH NO DIFFICULTY. RN WALKS PT TO RESTROOM WITH 93% ON RA. PT HEART RATES 93%. PT INCREASED RESPIRATORY RATE OF 26, BUT ALSO COUGHING UP PHLEGM. ONCE INTO THE RESTROOM PATIENT ON AND OFF THE TOILET APPROPRIATELY. ONCE READY TO RETURN TO ROOM, PATIENT CLOSES HER EYES AND WALKS DIRECTLY INTO WHEELCHAIR PRETENDING TO FALL. RN STRESSED TO PATIENT TO PAY ATTENTION TO WHAT SHE IS DOING WHILE UP WALKING. PT WHEELED BACK TO ROOM AND PATIENT AMBULATED/ GOT BACK IN BED ON HER OWN. RN WILL CONTINUE TO MONITOR.
--- NOTE | 2019-04-21 12:46 | ED.VIS.GEN ---
History of Present Illness Chief Complaint: Shortness of Breath Detail of Chief Complaint: Nonproductive cough and pedal edema Onset: Days Context: Gradual Onset Timing: Continuous Quality: Patient recently admitted at outside facility for 3 days. Treated for COPD Location: Not applicable Current Severity: Mild Maximum Severity: Moderate Worsened by: Walking and coughing Relieved by: Nothing Associated Symptoms: Wheezing and swelling of feet Narrative: Patient is an elderly woman with multiple medical problems who presents because her feet are swollen. After speaking with her she determined that patient has not been as mobile and has been sitting in a lazy boy. Swelling is worse at the end of the day. Swelling is better in the morning. She denies history of congestive heart failure. She denies orthopnea PND. She denies chest pressure or tightness. States she has a nonproductive cough. She does report mild nasal congestion. She has remote history of PE. 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 (11) Obesity (BMI 30-39.9) Status: Chronic Past Medical History - Allergies and Home Meds Allergies/Adverse Reactions: Allergies Penicillins Allergy (Verified 04/21/19 09:50) Angioedema rosiglitazone maleate [From Avandia] Allergy (Verified 04/21/19 09:50) hyperglycemia cephalexin [From Keflex] Adverse Reaction (Verified 04/21/19 09:50) Diarrhea doxycycline Adverse Reaction (Verified 04/21/19 09:50) Diarrhea insulin detemir [From Levemir] Adverse Reaction (Verified 04/21/19 09:50) hyperglycemia prednisone Adverse Reaction (Verified 04/21/19 09:50) hyperglycemia HYPERGLYCEMIA Sulfa (Sulfonamide Antibiotics) Adverse Reaction (Verified 04/21/19 09:50) Unknown pt is unsure Primary Care Physician: Rufus Blanco DO [Primary Care Provider] - Prior records reviewed: Yes Surgical History: cholecystectomy, - - Lives: Spouse/ Significant Other Smoking Status: Former smoker Alcohol: None Drugs: None - Family History Maternal Family History: Family History (Last Reviewed 02/10/19 @ 10:13 by SUSANNAH Gonzalez) Sister Lupus Arthritis Brother Colon cancer Cancer Arthritis Father Diabetes Heart disease Mother Hypertension Family History: Reports: No pertinent history Paternal Family History: Family History (Last Reviewed 02/10/19 @ 10:13 by SUSANNAH Gonzalez) Sister Lupus Arthritis Brother Colon cancer Cancer Arthritis Father Diabetes Heart disease Mother Hypertension Family History: Reports: No pertinent history Review of Systems General: Reports: Malaise. Denies: Chills, Fever, Sweats, Weight loss Eyes: Denies: Visual changes - bilaterally, Blurred Vision - bilaterally ENT: Reports: Rhinorrhea. Denies: Left ear pain, Right ear pain, Sore throat Cardiovascular: Denies: Chest pain, Palpitations Respiratory: Reports: Dyspnea, Cough, Dyspnea on exertion. Denies: Sputum, Orthopnea, Paroxysmal nocturnal dyspnea Gastrointestinal: Denies: Abdominal pain, Nausea, Vomiting, Diarrhea, Melena, Hematochezia Genitourinary: Denies: Dysuria, Hematuria, Frequency Musculoskeletal: Reports: Swelling. Denies: Myalgias, Arthralgias, Neck pain, Back pain, Extremity Pain Skin: Denies: Rash, Wounds Neurological: Denies: Headache, Weakness, Numbness Hematologic: Denies: Easy bruising, Easy bleeding Physical Exam Vital Signs/Narrative: Vital Signs Temp Pulse Resp BP Pulse Ox 04/21/19 12:33 93 26 H 93 04/21/19 11:02 18 92 04/21/19 10:55 83 20 H 04/21/19 10:45 75 20 H 04/21/19 10:23 69 20 H 04/21/19 10:12 69 16 144/53 H 92 04/21/19 09:48 97.8 F 77 22 H 167/74 H 93 Inital Vital Signs reviewed: Yes General: Well nourished, Well developed, Obese, - - There is minimal use of accessory muscles. Head: Normocephalic, Atraumatic Eyes: Perrl, EOMI. Negative for: Pale conjunctiva, Scleral icterus ENT: Moist mucous membranes, No rhinorrhea, TM's clear Neck: Supple, Nontender Cardiovascular: Regular rate, Regular rhythm, No murmurs, Normal S1, Normal S2 Respiratory: No distress, Chest nontender, Wheezing, Decreased Air Movement Abdomen: Soft, Nontender, Nondistended, Normal bowel sounds Back: Nontender, Normal Inspection. Negative for: CVA tenderness Extremities: Nontender, Edema - 2+ pitting Skin: Normal color, No rash, No Trauma. Negative for: Cyanosis, Diaphoresis, Jaundice Neurological: Alert, Oriented x3, Cranial nerves II-XII grossly intact, Normal Strength, Normal Sensation Psychological: Normal affect, Normal Mood Diagnostic/Tx/Re-eval Chest X-Ray - ED: 2 View, Read by ED Physician, Normal, Mediastinum, Bony Structures, No Acute Disease, Chronic Changes, Cardiomegaly, - - X-ray is unchanged from prior. Impressions Chest X-Ray 04/21/19 11:25 IMPRESSION: Cardiomegaly with hyperexpansion unchanged. No acute finding. Electronically Signed: Jun Armstrong MD at 11:48 EST , Service support , 04/21/19 11:25 Chest PA and Lateral [RAD] Stat Laboratory Results 04/21/19 04/21/19 04/21/19 10:10 10:10 10:10 WBC 7.0 RBC 3.86 L Hgb 11.3 L Hct 35.9 L MCV 93.0 MCH 29.3 MCHC 31.5 L RDW Std Deviation 52.8 H RDW Coeff of Alton 15.7 H Plt Count 169 MPV 10.5 Immature Gran % (Auto) 0.700 Neut % (Auto) 60.8 Lymph % (Auto) 23.2 Fountain % (Auto) 11.3 H Eos % (Auto) 3.7 Baso % (Auto) 0.3 Absolute Neuts (auto) 4.2 Absolute Lymphs (auto) 1.62 Nucleated RBC % 0 Sodium 141 Potassium 4.1 Chloride 109 H Carbon Dioxide 27.0 Anion Gap 5 BUN 19 H Creatinine 1.30 H Estim Creat Clear Calc 34.16 Est GFR (MDRD) Af Amer 51 L Est GFR (MDRD) Non-Af 42 L BUN/Creatinine Ratio 14.6 Glucose 132 H Calcium 8.9 Total Bilirubin 0.60 AST 16 ALT 42 Alkaline Phosphatase 81 Troponin I 0.031 B-Natriuretic Peptide 91.2 Total Protein 7.0 Albumin 3.3 Globulin 3.7 Albumin/Globulin Ratio 0.9 POC Glucose 04/21/19 12:09 WBC RBC Hgb Hct MCV MCH MCHC RDW Std Deviation RDW Coeff of [place]ton Plt Count MPV Immature Gran % (Auto) Neut % (Auto) Lymph % (Auto) Fountain % (Auto) Eos % (Auto) Baso % (Auto) Absolute Neuts (auto) Absolute Lymphs (auto) Nucleated RBC % Sodium Potassium Chloride Carbon Dioxide Anion Gap BUN Creatinine Estim Creat Clear Calc Est GFR (MDRD) Af Amer Est GFR (MDRD) Non-Af BUN/Creatinine Ratio Glucose Calcium Total Bilirubin AST ALT Alkaline Phosphatase Troponin I B-Natriuretic Peptide Total Protein Albumin Globulin Albumin/Globulin Ratio POC Glucose 114 H CBC is unremarkable. Comprehensive metabolic panel is unremarkable. Albumin is normal. - Medical Decision Making Suspect patient having exacerbation COPD. Believe the pedal edema secondary to dependent pedal edema. Chest x-ray was obtained to evaluate for pneumonia as well as CHF. EKG and blood work to evaluate for cardiac ischemia. Hypertensive metabolic panel was obtained to evaluate for hypoalbuminemia. Patient was reassessed at 1215. Her breathing is improved markedly. There is still minimal wheezing noted. Patient was ambulated. Pulse ox remained 93%. She was not tachycardic. She was slightly tachypneic with no use of accessory muscles. Plan is to discharge to home ED Disposition - Plan for ED Patient: Disposition: Home or Assisted Living Diagnosis: COPD with exacerbation, Recurrent bronchospasm Instructions: Copd Flare Prescriptions: Prednisone 10 mg PO UD #33 tab Prescription Printed Referrals: Rufus Blanco DO [Primary Care Provider] - 3-5 Days
--- NOTE | 2019-04-21 13:00 | ED.RN ---
RN INTO DISCHARGE PATIENT. AND PATIENT QUESTIONING WHY PATIENT ISN'T GETTING ADMITTED. RN TO INFORM DR. PORTILLO.
[2019-04-21 14:11] LABS: International Normalized Ratio 1.9; Prothrombin Time (Protime)PT. 21.6 SECONDS (11.7-14.9)
== END 2019-04-21 13:59 | disposition home or self-care (01) ==
PROVIDERS: Emergency Provider Emergency Medicine; Family Provider Family Medicine; PCP Family Medicine
DX: J44.1 Chronic obstructive pulmonary disease with (acute) exacerbation (principal); Z86.711 Personal history of pulmonary embolism; F41.9 Anxiety disorder, unspecified; J30.9 Allergic rhinitis, unspecified; E11.9 Type 2 diabetes mellitus without complications; E66.9 Obesity, unspecified; E78.5 Hyperlipidemia, unspecified; H81.09 Meniere's disease, unspecified ear; I10 Essential (primary) hypertension; K21.9 Gastro-esophageal reflux disease without esophagitis; K44.9 Diaphragmatic hernia without obstruction or gangrene; Z82.49 Family history of ischemic heart disease and other diseases of the circulatory system; Z86.718 Personal history of other venous thrombosis and embolism; Z87.891 Personal history of nicotine dependence; Z88.0 Allergy status to penicillin; Z88.1 Allergy status to other antibiotic agents; Z88.2 Allergy status to sulfonamides; Z90.49 Acquired absence of other specified parts of digestive tract; R91.1 Solitary pulmonary nodule
CPT/HCPCS: 71046; 80053; 82962; 83880; 84484; 85025; 85610; 93005; 94640; 99251; 99284; G0463

== ENCOUNTER 2019-04-23 18:51 | Emergency (ER) | payer MEDICARE, MEDICAID, SELFPAY ==
[2019-04-21 09:48] VITALS: BMI 34.9
[2019-04-23 18:52] VITALS: BP 167/78; PULSE 80; RESP 16; TEMP 36.4; O2SAT 95; BMI 34.9
[2019-04-23] MEDS: 0.9% Normal Saline 1,000 ML 1000 ML IV ×2 (19:53→21:28)
[2019-04-23 20:01] LABS: Bedside Glucose 488 mg/dL (70-110)
[2019-04-23 20:03] LABS: Absolute Lymphocyte Count 0.78 X10^3/uL (0.83-4.51); Absolute Neutrophil Count 9.2 X10^3/uL (2.0-7.7); Basophil# 0.02 X10^3/uL; Basophil% 0.2 % (0-1); Eosinophil# 0.01 X10^3/uL; Eosinophils% 0.1 % (0-5); Hematocrit 36.1 % (37-47); Hemoglobin 11.3 g/dL (12.0-15.0); Lymphocyte # 0.78 X10^3/ul (4.0); Lymphocyte % 7.5 % (19-41); Mean Corp Hgb Conc 31.3 g/dL (32-36); Mean Corpuscular Hgb 29.5 pg (27.0-32.0); Mean Corpuscular Volume 94.3 fL (81-99); Monocyte# 0.23 X10^3/uL; Monocyte% 2.2 % (0-10); NRBC Flagged by Analyzer 0 % (0-5); Neutrophil # 9.24 X10^3/uL (2.7-7.7); Neutrophil % 89.1 % (47-70); Platelet Count 200 K/mm3 (150-450); RBC Distribution Width CV 15.7 % (11.6-14.6); RBC Distribution Width SD 53.7 fl (35.1-43.9); Red Blood Count 3.83 M/mm3 (4.2-5.4); White Blood Count 10.4 K/mm3 (4.4-11.0)
[2019-04-23] MEDS: Albuterol 2.5 MG/3 ML VIAL.NEB. INHALATION (20:13)
[2019-04-23 20:14] VITALS: PULSE 82; RESP 18
[2019-04-23 20:23] LABS: Anion Gap 8 (5-15); BUN 40 mg/dL (7-18); Calcium,Total 8.2 mg/dL (8.5-10.1); Chloride 103 mmol/L (98-107); EST Glomerular Filtration Rate 26 mL/min (>60); Est Glom Filt Rate - Afr Amer 31 mL/min (>60); Estimated Creatinine Clearance 22.21 ml/min; Potassium 5.3 mmol/L (3.5-5.1); Sodium Level 136 mmol/L (136-145)
--- NOTE | 2019-04-23 20:26 | ED.DCSUM_ITS ---
- ER Visit Summary Date of Service: 04/23/19 Chief Complaint: Hyperglycemia History of Present Illness: The patient is a 73 F who presents with elevated blood sugar that she noticed today. Patient states she has been on steroids recently. Patient also states she had some extra desserts today with dinner. Patient states she checked her blood sugar at home and it was 533. Patient took 4 units of insulin at home. Patient denies any chest pain or shortness of breath. Patient denies any nausea or vomiting. Patient denies any paresthesias or weakness. Patient denies any headaches. Patient denies any polyuria or polydipsia. Physical Examination: Vital signs are stable. Patient is afebrile. Patient is in no acute distress. Oral mucosa is pink and moist. Neck is supple. Trachea is midline. There is no JVD. Heart was regular rate and rhythm. Lungs are clear and equal bilaterally. Abdomen is soft. Bowel sounds are normal. There is no tenderness. Cranial nerves II through XII are intact. There are no focal motor or sensory deficits noted. Test Results: CBC was essentially within normal limits. BGT was 488. Basic metabolic profile showed a glucose of 512, BUN was 40, and creatinine was 2.0. Emergency Department Course and Treatment: Patient was given IV fluids here. Patient was given Humalog 10 units subcu. Repeat fingerstick blood sugar was improved to 437. Patient was instructed to go home and take her nighttime insulin as scheduled. Patient was instructed to continue her insulin as previously prescribed. Patient was instructed to avoid sugars. Patient understood and was agreeable with the plan. All questions were answered. Disposition: Discharge home Impression: Hyperglycemia This note was generated with [employer] dictation software. It may contain incorrect words, spelling, and punctuation that were not noted in review of the chart prior to signing ED Disposition - Plan for ED Patient: Disposition: Home or Assisted Living Diagnosis: Hyperglycemia Instructions: ED Diabetic Hyperglycemia Referrals: Rufus Blanco DO [Primary Care Provider] - 5-7 Days
[2019-04-23 20:56] LABS: Glucose 512 mg/dL (74-106)
[2019-04-23] MEDS: Insulin Lispro 100 UNIT/ML INSULN.PEN 10 UNIT SC (21:21)
[2019-04-23 21:33] VITALS: BP 181/68; PULSE 70; RESP 18; O2SAT 92
[2019-04-23 22:35] LABS: Bedside Glucose 437 mg/dL (70-110)
== END 2019-04-23 22:51 | disposition home or self-care (01) ==
PROVIDERS: Emergency Provider Emergency Medicine; Family Provider Family Medicine; PCP Family Medicine
DX: E11.65 Type 2 diabetes mellitus with hyperglycemia (principal); E11.51 Type 2 diabetes mellitus with diabetic peripheral angiopathy without gangrene; J44.9 Chronic obstructive pulmonary disease, unspecified; J02.9 Acute pharyngitis, unspecified; Z79.899 Other long term (current) drug therapy; Z79.4 Long term (current) use of insulin
CPT/HCPCS: 80048; 82962; 85025; 94640; 96360; 96361; 99284; J7030; A4216

== ENCOUNTER 2019-05-09 19:51 | Emergency (ER) | payer MEDICARE, MEDICAID, SELFPAY ==
[2019-05-09 19:52] VITALS: BP 184/77; PULSE 79; RESP 18; TEMP 36.8; O2SAT 95; BMI 44.2
--- NOTE | 2019-05-09 20:07 | ED.DCSUM_ITS ---
- ER Visit Summary Date of Service: 05/09/19 Chief Complaint: Hyperglycemia History of Present Illness: The patient is a 74 F who presents with elevated blood sugars that began tonight. Patient states her primary care physician recently restarted her prednisone for COPD exacerbation. Patient states she ch ecked her blood sugar at home tonight and it was 560. Patient states she took some short acting insulin and then rechecked her blood sugar approximately 30 to 60 minutes after the insulin. Patient states her blood sugar was going up. Patient states that is what brought her to the emergency department tonight. Patient admits to urinary frequency. Physical Examination: Vital signs are stable. Patient is afebrile. Patient is in no acute distress. Oral mucosa is pink and moist. Neck is supple. Trachea is midline. There is no JVD noted. Heart was regular rate and rhythm. Lungs are clear and equal bilaterally. Abdomen is soft. Bowel sounds are normal. There is no tenderness. There is no rebound or guarding noted. Skin is warm dry. Cranial nerves II through XII are intact. There are no focal motor or sensory deficits noted. Extremities are intact. There is no calf tenderness or edema. Test Results: CBC shows a mild leukocytosis of 14.4 which is likely from the steroids. Basic metabolic profile showed a sodium of 135 and a potassium of 5.2. BUN was 30 and creatinine was 1.6. These are consistent with prior results. Emergency Department Course and Treatment: Patient was given 15 units of Humalog subcu here. Repeat blood sugar was over 600. Patient was given a repeat dose of Humalog 15 units. Patient will be monitored and her blood sugar will be rechecked. The patient was turned over to the oncoming physician. Disposition: Probable discharge home Impression: 1. Hyperglycemia 2. Diabetes This note was generated with [employer] software. It may contain incorrect words, spelling, and punctuation that were not noted in review of the chart prior to signing ED Disposition - Plan for ED Patient: Disposition: Home or Assisted Living Diagnosis: Hyperglycemia, Diabetes mellitus, type 2 Instructions: ED Diabetic Hyperglycemia Referrals: Rufus Blanco DO [Primary Care Provider] - 3-5 Days
[2019-05-09 20:19] LABS: Absolute Lymphocyte Count 0.67 X10^3/uL (0.83-4.51); Basophil# 0.02 X10^3/uL; Basophil% 0.1 % (0-1); Eosinophil# 0.01 X10^3/uL; Eosinophils% 0.1 % (0-5); Hemoglobin 11.8 g/dL (12.0-15.0); Lymphocyte # 0.67 X10^3/ul (4.0); Lymphocyte % 4.7 % (19-41); Mean Corp Hgb Conc 31.1 g/dL (32-36); Mean Corpuscular Hgb 28.9 pg (27.0-32.0); Mean Corpuscular Volume 92.9 fL (81-99); Mean Platelet Vol. 11.1 fl (6.2-12.0); Monocyte# 0.61 X10^3/uL; Monocyte% 4.2 % (0-10); NRBC Flagged by Analyzer 0 % (0-5); Neutrophil # 12.98 X10^3/uL (2.7-7.7); Neutrophil % 90.4 % (47-70); POSITIVE MORPHOLOGY YES; Platelet Count 176 K/mm3 (150-450); RBC Distribution Width CV 16.2 % (11.6-14.6); RBC Distribution Width SD 55.3 fl (35.1-43.9); Red Blood Count 4.09 M/mm3 (4.2-5.4); White Blood Count 14.4 K/mm3 (4.4-11.0)
[2019-05-09 20:20] LABS: Bedside Glucose > 500 mg/dL (70-110)
[2019-05-09 20:31] VITALS: TEMP 36.8; BMI 44.2
[2019-05-09 20:40] LABS: Anion Gap 4 (5-15); BUN 30 mg/dL (7-18); BUN/Creat Ratio 18.8 RATIO (10-20); Calcium,Total 8.8 mg/dL (8.5-10.1); Chloride 107 mmol/L (98-107); EST Glomerular Filtration Rate 33 mL/min (>60); Est Glom Filt Rate - Afr Amer 40 mL/min (>60); Estimated Creatinine Clearance 25.13 ml/min; Glucose 523 mg/dL (74-106); Potassium 5.2 mmol/L (3.5-5.1); Sodium Level 135 mmol/L (136-145)
[2019-05-09 20:48] LABS: Differential Indicated SCAN CRITERIA MET
[2019-05-09 20:49] LABS: Platelet Estimate ADEQUATE (ADEQ); Red Cell Morphology NORM C+C NORMAL (NORM C&C)
[2019-05-09] MEDS: Insulin Lispro 100 UNIT/ML INSULN.PEN 15 UNIT SC ×2 (21:11→22:39)
[2019-05-09 21:52] VITALS: BP 177/59; PULSE 81; RESP 18; TEMP 37.1; O2SAT 94
[2019-05-09 22:05] LABS: Bedside Glucose > 500 mg/dL (70-110)
[2019-05-09 22:35] LABS: Bedside Glucose > 500 mg/dL (70-110)
[2019-05-09 23:00] VITALS: BP 196/72; PULSE 82; RESP 18; O2SAT 97
[2019-05-09 23:36] LABS: Bedside Glucose > 500 mg/dL (70-110)
[2019-05-09] MEDS: Insulin Lispro 100 UNIT/ML INSULN.PEN 30 UNIT SC (23:36)
[2019-05-10 00:15] LABS: Bedside Glucose > 500 mg/dL (70-110)
[2019-05-10 00:46] LABS: Bedside Glucose 435 mg/dL (70-110)
[2019-05-10] MEDS: Insulin Lispro 100 UNIT/ML INSULN.PEN 30 UNIT SC (00:52)
[2019-05-10 01:01] VITALS: RESP 16
[2019-05-10 02:06] LABS: Bedside Glucose 241 mg/dL (70-110)
[2019-05-10] MEDS: Acetaminophen 325 MG Tablet 650 MG PO (02:09)
[2019-05-10 02:10] VITALS: BP 188/62; PULSE 81; RESP 18; O2SAT 92
== END 2019-05-10 02:41 | disposition home or self-care (01) ==
PROVIDERS: Emergency Medicine; Emergency Provider Emergency Medicine; Family Provider Family Medicine; PCP Family Medicine
DX: E11.65 Type 2 diabetes mellitus with hyperglycemia (principal); R35.0 Frequency of micturition; Z79.4 Long term (current) use of insulin; E66.9 Obesity, unspecified; I10 Essential (primary) hypertension; J44.9 Chronic obstructive pulmonary disease, unspecified; I73.9 Peripheral vascular disease, unspecified; Z86.718 Personal history of other venous thrombosis and embolism; Z87.891 Personal history of nicotine dependence
CPT/HCPCS: 80048; 82962; 85025; 96372; 99284

== ENCOUNTER 2019-08-18 07:49 | Outpatient (RCR) | payer MEDICARE, MEDICAID, SELFPAY ==
[2019-08-06 09:08] LABS: International Normalized Ratio 1.7; Prothrombin Time (Protime)PT. 19.1 SECONDS (11.7-14.9)
[2019-08-06 09:10] LABS: Partial Thromboplast Time 30.3 Seconds (24.1-36.2)
[2019-08-18 10:03] LABS: International Normalized Ratio 1.8; Prothrombin Time (Protime)PT. 20.2 SECONDS (11.7-14.9)
[2019-08-18 10:04] LABS: Partial Thromboplast Time 33.2 Seconds (24.1-36.2)
== END 2019-08-28 18:00 | disposition home or self-care (01) ==
LOC: MTLAB 07:49
PROVIDERS: PCP Family Medicine; Referring Provider Family Medicine; Visit Provider Family Medicine
DX: Z86.718 Personal history of other venous thrombosis and embolism (principal); Z79.01 Long term (current) use of anticoagulants
CPT/HCPCS: 36415; 85610; 85730

== ENCOUNTER 2019-09-17 12:58 | Outpatient (RCR) | payer MEDICARE, MEDICAID, SELFPAY ==
[2019-09-01 12:27] LABS: International Normalized Ratio 1.8; Partial Thromboplast Time 31.1 Seconds (24.1-36.2)
[2019-09-17 15:30] LABS: International Normalized Ratio 2.1; Partial Thromboplast Time 33.6 Seconds (24.1-36.2); Prothrombin Time (Protime)PT. 23.4 SECONDS (11.7-14.9)
== END 2019-09-17 18:00 | disposition home or self-care (01) ==
LOC: MTLAB 12:58
PROVIDERS: PCP Family Medicine; Referring Provider Family Medicine; Visit Provider Family Medicine
DX: Z86.718 Personal history of other venous thrombosis and embolism (principal); Z79.01 Long term (current) use of anticoagulants
CPT/HCPCS: 36415; 85610; 85730

== ENCOUNTER 2019-10-05 11:56 | Emergency (ER) | payer MEDICARE, MEDICAID, SELFPAY ==
[2019-09-24 09:58] VITALS: BMI 44.2
[2019-10-05 11:58] VITALS: BP 159/93; PULSE 80; RESP 17; TEMP 36.4; O2SAT 96; BMI 37.8
--- NOTE | 2019-10-05 12:19 | VDLE_ITS ---
Reason For Study: Pain Procedure LEFT Exam performed portable in ED. GSV is normal. A preliminary report was called and/or faxed CFV is compressible, spontaneous, phasic, to ED RN. competent, and demonstrates normal augmentation. FV is compressible, spontaneous, phasic, competent and demonstrates normal augmentation. FV mid-distal visualized with color only pt unable to tolerate compression. POP V is compressible, spontaneous, phasic, competent and demonstrates normal augmentation. T/P Trunk is compressible. PTV is compressible. LT PerV is compressible. Interpretation Summary There is no evidence of left lower extremity deep vein thrombosis. Left great saphenous vein appears patent and compressible segmentally. Limitation on visualization of the left mid to distal femoral vein as noted Ordering Physician: Lis Hale Referring Physician: Rufus Blanco Performed By: Ese Osorio RVT
--- NOTE | 2019-10-05 12:21 | ED.DCSUM_ITS ---
- ER Visit Summary Date of Service: 10/05/19 Chief Complaint: [Pain and swelling to left leg] History of Present Illness: The patient is a 74 F [presents to the emergency department with pain and swelling to the left leg that is progressively been getting worse over last 3 months.] Patient denies any trauma to her leg. She states that she is currently on Coumadin for history of DVTs that were diagnosed more than 4 years ago. Patient also has history of peripheral vascular disease and apparently had balloon angioplasty on her right leg in the past. Patient denies recent travel or surgery. She denies any fevers. She is currently being treated with clindamycin for suspected cellulitis of the left leg. Patient states that at night she has a lot of pain in her leg and chest to get up and move. She states that typically the pains better when she is up and moving. She also has history of neuropathy. Denies any chest pain or shortness of breath. Patient has history of COPD, hypertension, high cholesterol, GERD, depression, and anxiety. Patient was seen by her daughter today and had the l eft leg wrapped and the patient states that that really seem to make it feel better. Patient denies any fevers or chills. She describes the pain in her leg as a burning and feeling like it is on fire. States that she feels like at times in the middle night she will have to get up and walk around to help with some of the discomfort. Physical Examination: [HEENT-PERRLA, EOMI. Cranial nerves II through XII grossly intact. TMs clear. Mucous membranes moist. No adenopathy. Cardiovascular-regular rate and rhythm without murmur or ectopy Lungs-clear to auscultation, chest wall stable without crepitus or subcu emphysema Abdomen-normoactive bowel sounds, soft, nontender, no rebound or rigidity, no peritoneal signs. Extremities-intact ?4, normal range of motion, normal pulses, atraumatic. Left leg-patient does have an area of erythema to the proximal medial left calf with some firmness and induration in the soft tissues that I suspect may be a hematoma. Patient is neurovascularly intact. She does have some decrease sensation to light touch to the toes has been chronic. She is got palpable pulses dorsal pedal and posterior tibial. Cap refill is less than 3 seconds. No cyanosis noted. Patient does have +1 edema both lower extremities that seems to be symmetric.] Test Results: [CBC with differential obtained showed a white count of 7.9, hemoglobin 12.5, hematocrit 40, platelet 94. Chemistries unremarkable. Glucose was 247. INR was 1.6. Venous duplex of the left lower extremity was negative for DVT.] Emergency Department Course and Treatment: [] Treatment Plan: [We will be given a prescription for Percocet for pain. Patient advised to follow-up with her primary care physician to potentially get started on something for neuropathic pain such as gabapentin or Lyrica.] Disposition: [Discharged home in stable condition] Impression: [Left leg pain secondary to neuropathy Hematoma left calf] This note was generated with [employer] dictation software. It may contain incorrect words, spelling, and punctuation that were not noted in review of the chart prior to signing ED Disposition - Plan for ED Patient: Referrals: Rufus Blanco DO [Primary Care Provider] -
[2019-10-05 12:43] LABS: Absolute Lymphocyte Count 1.68 X10^3/uL (0.83-4.51); Absolute Neutrophil Count 5.1 X10^3/uL (2.0-7.7); Basophil# 0.05 X10^3/uL; Basophil% 0.6 % (0-1); Eosinophil# 0.32 X10^3/uL; Hematocrit 40.1 % (37-47); Hemoglobin 12.5 g/dL (12.0-15.0); Lymphocyte # 1.68 X10^3/ul (4.0); Lymphocyte % 21.2 % (19-41); Mean Corp Hgb Conc 31.2 g/dL (32-36); Mean Corpuscular Hgb 29.1 pg (27.0-32.0); Mean Corpuscular Volume 93.3 fL (81-99); Mean Platelet Vol. 11.3 fl (6.2-12.0); Monocyte# 0.74 X10^3/uL; Monocyte% 9.4 % (0-10); NRBC Flagged by Analyzer 0 % (0-5); Neutrophil # 5.09 X10^3/uL (2.7-7.7); Neutrophil % 64.4 % (47-70); Platelet Count 194 K/mm3 (150-450); RBC Distribution Width CV 15.4 % (11.6-14.6); RBC Distribution Width SD 52.8 fl (35.1-43.9); White Blood Count 7.9 K/mm3 (4.4-11.0)
[2019-10-05 12:49] LABS: International Normalized Ratio 1.6; Prothrombin Time (Protime)PT. 18.3 SECONDS (11.7-14.9)
[2019-10-05 12:54] LABS: Anion Gap 6 (5-15); BUN 25 mg/dL (7-18); BUN/Creat Ratio 19.2 RATIO (10-20); Calcium,Total 9.1 mg/dL (8.5-10.1); Chloride 110 mmol/L (98-107); EST Glomerular Filtration Rate 42 mL/min (>60); Est Glom Filt Rate - Afr Amer 51 mL/min (>60); Estimated Creatinine Clearance 30.93 ml/min; Glucose 247 mg/dL (74-106); Potassium 4.5 mmol/L (3.5-5.1); Sodium Level 142 mmol/L (136-145)
--- NOTE | 2019-10-05 13:08 | DCINST.ED_ITS ---
ED Disposition - Plan for ED Patient: Instructions: ED PERIPHERAL NEUROPATHY, ED Hematoma Prescriptions: Oxycodone HCl/Acetaminophen [Percocet 5/325] 1 tablet PO Q6H PRN PRN 3 Days #12 tablet PRN Reason: Pain Transmission Status: Sent to [facility] Referrals: Rufus Blanco DO [Primary Care Provider] - 3-5 Days
[2019-10-05 13:34] VITALS: BP 142/76; PULSE 76; RESP 18; O2SAT 96
== END 2019-10-05 13:33 | disposition home or self-care (01) ==
LOC: ED 13:20
PROVIDERS: Emergency Provider Emergency Medicine; PCP Family Medicine
DX: M79.605 Pain in left leg (principal); G62.9 Polyneuropathy, unspecified; J44.9 Chronic obstructive pulmonary disease, unspecified; K21.9 Gastro-esophageal reflux disease without esophagitis; E78.00 Pure hypercholesterolemia, unspecified; Z79.01 Long term (current) use of anticoagulants; Z86.718 Personal history of other venous thrombosis and embolism; Z79.4 Long term (current) use of insulin
CPT/HCPCS: 80048; 85025; 85610; 93971; 99282; A4216

== ENCOUNTER → 2019-12-09 09:55 | Outpatient (CLI) | payer MEDICARE, MEDICAID, SELFPAY ==
[2019-09-24 09:58] VITALS: BMI 44.2
--- NOTE | 2019-12-10 14:05 | PFT ---
INTRODUCTION: The patient is a 74-year-old female that presents for pulmonary function studies secondary to a diagnosis of COPD. Respiratory therapy reports good patient effort. Bronchodilators were used during testing. INTERPRETATION: Forced expiration spirometry demonstrates the presence of a moderately severe large airways obstructive ventilatory defect. There was no significant response to aerosolized bronchodilators. Spirograms are of good quality and plateau gradually indicating slow emptying of the lungs. Body plethysmography was performed and revealed an elevated RV to 145% of predicted, indicative of underlying air trapping. Diffusing capacity by single breath CO is reduced at 55% of predicted. IMPRESSION: Irreversible moderately severe large airways obstructive ventilatory defect with associated air trapping and symmetric reduction in diffusing capacity.
== END ==
PROVIDERS: PCP Family Medicine; Referring Provider Internal Medicine Critical Care Medicine; Visit Provider Internal Medicine Critical Care Medicine
DX: J44.9 Chronic obstructive pulmonary disease, unspecified (principal); J30.9 Allergic rhinitis, unspecified; E66.9 Obesity, unspecified
CPT/HCPCS: 94060; 94726; 94729

== ENCOUNTER → 2019-12-11 10:51 | Outpatient (CLI) | payer MEDICARE, MEDICAID, SELFPAY ==
[2019-09-24 09:58] VITALS: BMI 44.2
[2019-12-11 11:00] VITALS: PULSE 75; PULSE 81; PULSE 90; PULSE 91; PULSE 94; PULSE 95; O2SAT 94; O2SAT 95
--- NOTE | 2019-12-12 10:28 | PCM.PSN.6M ---
PSN 6 Minute Walk Test - 6 Minute Walk Test 6 Minute Walk Test: 6 Minute Walk Test PSN:6-Minute Walk Test Start: 12/11/19 11:14 Freq: Status: Active Protocol: RESP.6MINW Document 12/11/19 11:00 (Rec: 12/11/19 11:19 [id number]) 6 Minute Walk Test Date Performed 12/11/19 Time Performed 11:00 Height 5 ft 4 in Weight: 200 lb Weight in Pounds 200.[address]: Luther Calderon FIO2 (% Oxygen) 21 Assistive device used: Walker Pre-test Oxygen Delivery Method Room Air Pulse Ox (%) 95 Pulse Rate (60-100 beats/min) 75 Dyspnea Chantal Scale (0-10) 0 Exertion Chantal Scale (6-20) 6 1st minute Oxygen Delivery Method Room Air Pulse Ox (%) 95 Pulse Rate (60-100 beats/min) 91 2nd minute Oxygen Delivery Method Room Air Pulse Ox (%) 94 Pulse Rate (60-100 beats/min) 90 3rd minute Oxygen Delivery Method Room Air Pulse Ox (%) 94 Pulse Rate (60-100 beats/min) 94 4th minute Oxygen Delivery Method Room Air Pulse Ox (%) 95 Pulse Rate (60-100 beats/min) 95 5th minute Oxygen Delivery Method Room Air Pulse Ox (%) 95 Pulse Rate (60-100 beats/min) 95 6th minute Oxygen Delivery Method Room Air Pulse Ox (%) 95 Pulse Rate (60-100 beats/min) 91 Post-test Oxygen Delivery Method Room Air Pulse Ox (%) 94 Pulse Rate (60-100 beats/min) 81 Dyspnea Chantal Scale (0-10) 1 Exertion Chantal Scale (6-20) 13 Full Laps Walked 9 Partial Lap, Number of Tiles Walked 6 Total Distance Walked (ft) 537 - Interpretation Interpretation: The patient ambulated 537 feet over the course of 6 minutes beginning on room air with the use of a walker. Pretesting oxygen saturation was noted to be 95% on room air. With ambulation, the aidan oxygen saturation was 94%. Although there was evidence of impaired walk distance, there was no significant exertional oxygen desaturation. - Recommendations Recommendations: There is no indication for the use of supplemental oxygen at this time.
== END ==
PROVIDERS: PCP Family Medicine; Referring Provider Internal Medicine Critical Care Medicine; Visit Provider Internal Medicine Critical Care Medicine
DX: J44.9 Chronic obstructive pulmonary disease, unspecified (principal); E66.9 Obesity, unspecified; J30.9 Allergic rhinitis, unspecified
CPT/HCPCS: 94618

== ENCOUNTER → 2020-01-15 11:21 | Outpatient (CLI) | payer MEDICARE, MEDICAID, SELFPAY ==
[2019-12-17 11:11] VITALS: BMI 37.8
[2020-01-15 16:13] LABS: CRP < 2.90 mg/L (0.0-3.0)
[2020-01-15 16:59] LABS: Erythrocyte Sedimentation Rate 11 mm/hr (0-30)
[2020-01-18 20:36] LABS: CCP IgG Antibodies 4 units (0-19)
== END ==
PROVIDERS: PCP Family Medicine; Visit Provider Family Medicine
DX: M13.0 Polyarthritis, unspecified (principal)
CPT/HCPCS: 36415; 85652; 86140; 86200; 86431

== ENCOUNTER → 2020-07-01 13:06 | Outpatient (CLI) | payer MEDICARE, MEDICAID, SELFPAY ==
[2020-03-31 11:18] VITALS: BMI 39.3
[2020-07-01 15:52] LABS: Absolute Lymphocyte Count 1.79 X10^3/uL (0.83-4.51); Absolute Neutrophil Count 4.8 X10^3/uL (2.0-7.7); Basophil# 0.06 X10^3/uL; Basophil% 0.8 % (0-1); Eosinophil# 0.25 X10^3/uL; Eosinophils% 3.2 % (0-5); Hematocrit 41.4 % (37-47); Hemoglobin 12.6 g/dL (12.0-15.0); Lymphocyte # 1.79 X10^3/ul (4.0); Lymphocyte % 23.1 % (19-41); Mean Corp Hgb Conc 30.4 g/dL (32-36); Mean Corpuscular Hgb 28.9 pg (27.0-32.0); Mean Platelet Vol. 12.2 fl (6.2-12.0); Monocyte# 0.87 X10^3/uL; Monocyte% 11.2 % (0-10); NRBC Flagged by Analyzer 0 % (0-5); Neutrophil # 4.76 X10^3/uL (2.7-7.7); Neutrophil % 61.4 % (47-70); Platelet Count 190 K/mm3 (150-450); RBC Distribution Width SD 52.2 fl (35.1-43.9); Red Blood Count 4.36 M/mm3 (4.2-5.4); White Blood Count 7.8 K/mm3 (4.4-11.0)
[2020-07-01 16:09] LABS: International Normalized Ratio 2.5; Prothrombin Time (Protime)PT. 26.4 SECONDS (11.7-14.9)
[2020-07-01 16:13] LABS: AST(SGOT) 17 U/L (15-37); Alanine Aminotransfer ALT/SGPT 26 U/L (13-56); Albumin, Serum 3.5 g/dL (3.2-5.0); Alkaline Phosphatase 80 U/L (45-117); Anion Gap 6 (5-15); BUN 22 mg/dL (7-18); BUN/Creat Ratio 17.1 RATIO (10-20); Calcium,Total 8.8 mg/dL (8.5-10.1); Chloride 109 mmol/L (98-107); Creatinine, Serum 1.29 mg/dL (0.55-1.02); EST Glomerular Filtration Rate 43 mL/min (>60); Est Glom Filt Rate - Afr Amer 52 mL/min (>60); Globulin 3.4 g/dL (2.2-4.2); Glucose 255 mg/dL (74-106); Potassium 4.2 mmol/L (3.5-5.1); Protein, Total 6.9 g/dL (6.4-8.2); Sodium Level 142 mmol/L (136-145)
== END ==
PROVIDERS: PCP Family Medicine; Visit Provider Family Medicine
DX: Z51.81 Encounter for therapeutic drug level monitoring (principal); I10 Essential (primary) hypertension; Z79.01 Long term (current) use of anticoagulants
CPT/HCPCS: 80053; 85025; 85610

== ENCOUNTER 2020-07-13 02:38 | Inpatient (IN) | payer MEDICARE, MEDICAID, SELFPAY ==
[2020-07-02 10:49] VITALS: BMI 38.2
[2020-07-13] VITALS (48 sets, daily range): BP systolic 112–160; BP diastolic 49–92; PULSE 60–103; RESP 12–30; TEMP 36.1–37.4; O2SAT 86–97; BMI 36.7; BMI 36.8
--- NOTE | 2020-07-13 02:57 | EKG12_ITS ---
Test Reason : REPEAT CP Blood Pressure : / mmHG Vent. Rate : 094 BPM Atrial Rate : 094 BPM P-R Int : 140 ms QRS Dur : 160 ms QT Int : 392 ms P-R-T Axes : 068 -05 201 degrees QTc Int : 490 ms Normal sinus rhythm Left bundle branch block Abnormal ECG Confirmed by LEE TORRES, LIZETTE ([id number]), society editor MICHAEL BARROSO ([id number]) on 07/15/2020 12:51:53 PM Referred By: Confirmed By:LIZETET HOWARD MD
--- NOTE | 2020-07-13 02:57 | RAD_ITS ---
STUDY: X-RAY CHEST REASON FOR EXAM: Female, 75 years old. dyspnea TECHNIQUE: Single AP portable view of the chest. COMPARISON: None. FINDINGS: Ill-defined subpleural groundglass opacities are seen more prominent in the lung bases , may represent atypical pneumonia or viral pneumonia (COVID-19 ?). There is no demonstrated pleural abnormality. Normal size heart. Normal mediastinum and hayder. Normal visualized pulmonary arteries. Normal visualized aortic arch and descending thoracic aorta. Normal visualized thoracic spine. There is degenerative osteoarthritis of the bilateral shoulders. There is no demonstrated abnormality of the visualized soft tissue structures of the upper abdomen. RAD/Chest 1 View (Portable) IMPRESSION: Ill-defined subpleural groundglass opacities are seen more prominent in the lung bases , may represent atypical pneumonia or viral pneumonia (COVID-19 ?). Electronically Signed: Bekah Alonso MD at 4:14 EDT Tel , Service support ,
[2020-07-13] MEDS: MethylPREDNISolone 125 MG/2 ML Vial IV (03:10)
[2020-07-13 03:11] LABS: Absolute Lymphocyte Count 2.69 X10^3/uL (0.83-4.51); Absolute Neutrophil Count 6.8 X10^3/uL (2.0-7.7); Basophil# 0.07 X10^3/uL; Basophil% 0.7 % (0-1); Eosinophil# 0.25 X10^3/uL; Eosinophils% 2.3 % (0-5); Hematocrit 45.5 % (37-47); Hemoglobin 14.3 g/dL (12.0-15.0); Lymphocyte # 2.69 X10^3/ul (4.0); Lymphocyte % 25.1 % (19-41); Mean Corp Hgb Conc 31.4 g/dL (32-36); Mean Corpuscular Hgb 29.6 pg (27.0-32.0); Mean Corpuscular Volume 94.2 fL (81-99); Monocyte# 0.85 X10^3/uL; Monocyte% 7.9 % (0-10); NRBC Flagged by Analyzer 0 % (0-5); Neutrophil # 6.81 X10^3/uL (2.7-7.7); Neutrophil % 63.6 % (47-70); Platelet Count 236 K/mm3 (150-450); RBC Distribution Width CV 15.3 % (11.6-14.6); RBC Distribution Width SD 53.1 fl (35.1-43.9); Red Blood Count 4.83 M/mm3 (4.2-5.4); White Blood Count 10.7 K/mm3 (4.4-11.0)
[2020-07-13 03:16] LABS: International Normalized Ratio 2.3; Prothrombin Time (Protime)PT. 25.2 SECONDS (11.7-14.9)
[2020-07-13] MEDS: Ipratropium/Albuterol Sulfate 3 ML AMPUL.NEB INHALATION ×5 (03:27→23:38)
[2020-07-13] MEDS: Albuterol 2.5 MG/3 ML VIAL.NEB. INHALATION ×3 (03:27)
[2020-07-13 03:28] LABS: BNP,B-Type NATRIURETIC PEPTIDE 284.9 pg/mL (0-100)
[2020-07-13 03:36] LABS: ALB/GLOB Ratio 0.9 RATIO (0.9-2.4); AST(SGOT) 54 U/L (15-37); Alanine Aminotransfer ALT/SGPT 59 U/L (13-56); Albumin, Serum 3.7 g/dL (3.2-5.0); Alkaline Phosphatase 92 U/L (45-117); Anion Gap 5 (5-15); BUN 29 mg/dL (7-18); BUN/Creat Ratio 19.3 RATIO (10-20); Calcium,Total 8.9 mg/dL (8.5-10.1); Chloride 107 mmol/L (98-107); EST Glomerular Filtration Rate 36 mL/min (>60); Est Glom Filt Rate - Afr Amer 43 mL/min (>60); Estimated Creatinine Clearance 28.71 ml/min; Globulin 3.9 g/dL (2.2-4.2); Glucose 392 mg/dL (74-106); Potassium 4.5 mmol/L (3.5-5.1); Protein, Total 7.6 g/dL (6.4-8.2); Sodium Level 140 mmol/L (136-145)
[2020-07-13 03:49] LABS: Lactic Acid 1.5 mmol/L (0.4-1.9)
--- NOTE | 2020-07-13 03:51 | CPS ---
Critical Value's on ABG of pH 7.16 and pCO2 73.[address] Toledo
--- NOTE | 2020-07-13 04:15 | ED.RN ---
Dr aware of sepsis alert - no need for fluids at this time
--- NOTE | 2020-07-13 04:18 | CT_ITS ---
STUDY: CTA CHEST REASON FOR EXAM: Female, 75 years old. hypoxia RADIATION DOSAGE (If Supplied By Facility): CTDIvol = ( 22.01 ) mGy, DLP = ( 554.11 ) mGycm TECHNIQUE: The examination was performed with the intravenous administration of IV 100mL Isovue-370. Post-processing of the angiographic images was performed, with multiplanar reformation and 3D reconstruction. Individualized dose optimization techniques were used for this CT. COMPARISON: None. FINDINGS: Normal enhancement of the main pulmonary artery and right and left pulmonary arteries. Normal enhancement of the bilateral peripheral pulmonary arteries. There is no demonstrated pulmonary embolism. Normal thoracic aorta and visualized great vessels. There is no demonstrated aortic dissection. Normal heart and pericardium. Normal mediastinum. Normal hilar regions. Normal visualized trachea and bronchi. The lungs are well expanded. Patchy groundglass opacities more prominent in the lung bases with diffuse interstitial thickening suggesting pulmonary edema or Covid 19 pneumonia. Normal pleura. Small bilateral pleural effusions. Normal chest wall structures. There are degenerative changes of thoracic spine. Normal visualized upper abdomen. CT/CTA Chest W/WO Contrast IMPRESSION: Congestive heart failure. No demonstrated pulmonary embolism or arterial dissection. Electronically Signed: Bekah Alonso MD at 5:44 EDT Tel , Service support ,
--- NOTE | 2020-07-13 04:28 | NURSING ---
Patient co chest pain still ongoing - reported to Dr Toledo
--- NOTE | 2020-07-13 04:38 | ED.DCSUM_ITS ---
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 Patient states that she woke and had pain on the right side of her chest then then moved to the right arm and then to the left chest. It is described as a pressure. EMS notes that she was hypoxic at home in the low 80s on room air. Patient notes no change in her baseline cough from COPD. She denies any known heart issues. She denies any fevers vomiting diarrhea. Patient states she has been under a significant amount of stress as her is at home and is not expected to live past 6 months. - Past Medical History (1) Allergic rhinitis Status: Chronic (2) Anxiety disorder Status: Chronic (3) Chronic renal failure, stage 3 (moderate) Status: Chronic (4) DVT of lower extremity (deep venous thrombosis) Status: Chronic Comment: on coumadin (5) Diabetes mellitus, type 2 Status: Chronic (6) Dyslipidemia Status: Chronic (7) Essential hypertension Status: Chronic (8) Stage 2 moderate COPD by GOLD classification Status: Chronic Past Medical History - Allergies and Home Meds Allergies/Adverse Reactions: Allergies Penicillins Allergy (Verified 07/13/20 02:49) Angioedema rosiglitazone maleate [From Avandia] Allergy (Verified 07/13/20 02:49) hyperglycemia cephalexin [From Keflex] Adverse Reaction (Verified 07/13/20 02:49) Diarrhea doxycycline Adverse Reaction (Verified 07/13/20 02:49) Diarrhea prednisone Adverse Reaction (Verified 07/13/20 02:49) hyperglycemia HYPERGLYCEMIA Sulfa (Sulfonamide Antibiotics) Adverse Reaction (Verified 07/13/20 02:49) Unknown pt is unsure Primary Care Physician: Rufus Blanco DO [Primary Care Provider] - Surgical History: cholecystectomy, - - Lives: Spouse/ Significant Other Smoking Status: Former smoker Drugs: None - Family History Maternal Family History: Family History (Last Reviewed 07/02/20 @ 10:53 by Savanah Lilly NP, ASSESSMENT TECHNICIAN-C) Sister Lupus Arthritis Brother Colon cancer Cancer Arthritis Father Diabetes Heart disease Mother Hypertension Family History: Reports: No pertinent history Paternal Family History: Family History (Last Reviewed 07/02/20 @ 10:53 by Savanah Lilly NP, ASSESSMENT TECHNICIAN-C) Sister Lupus Arthritis Brother Colon cancer Cancer Arthritis Father Diabetes Heart disease Mother Hypertension Family History: Reports: No pertinent history Review of Systems General: Denies: Chills, Fever, Sweats Eyes: Denies: Visual changes - bilaterally, Diplopia ENT: Denies: Rhinorrhea, Sore throat Cardiovascular: Reports: Chest pain. Denies: Palpitations Respiratory: Reports: Dyspnea, Cough, Dyspnea on exertion Gastrointestinal: Denies: Abdominal pain, Nausea, Vomiting, Diarrhea, Melena, Hematochezia Genitourinary: Denies: Dysuria, Hematuria, Frequency Musculoskeletal: Denies: Back pain, Extremity Pain Skin: Denies: Rash, Wounds Neurological: Denies: Headache, Weakness, Numbness Physical Exam Vital Signs/Narrative: Vital Signs Temp Pulse Resp BP Pulse Ox 07/13/20 04:12 98 F 85 22 H 151/89 H 93 07/13/20 04:00 98.4 F 90 19 H 151/89 H 95 07/13/20 03:39 102 H 24 H 96 07/13/20 03:27 98.4 F 93 24 H 122/86 H 96 07/13/20 03:20 20 H 94 07/13/20 02:47 98.1 F 95 26 H 160/81 H 90 07/13/20 02:39 98.4 F 103 H 30 H 151/84 H 86 Inital Vital Signs reviewed: Yes General: Well nourished, Well developed, Obese, Acute Distress Head: Normocephalic, Atraumatic Eyes: Perrl, EOMI ENT: Moist mucous membranes, No rhinorrhea Neck: Supple, Nontender Cardiovascular: Regular rate, No murmurs, Tachycardia Respiratory: Chest nontender, Rhonchi, Decreased Air Movement Abdomen: Soft, Nontender, Nondistended, Normal bowel sounds Back: Nontender, Normal Inspection Extremities: Nontender, No edema Skin: Normal color, No rash Neurological: Alert, Oriented x3, Cranial nerves II-XII grossly intact, Normal Strength, Normal Sensation Diagnostic/Tx/Re-eval Clinical Impression(s) from Imaging Studies Chest X-Ray 07/13/20 02:57 IMPRESSION: Ill-defined subpleural groundglass opacities are seen more prominent in the lung bases , may represent atypical pneumonia or viral pneumonia (COVID-19 ?). Electronically Signed: Bekah Alonso MD at 4:14 EDT Tel , Service support , Chest CTA 07/13/20 04:18 IMPRESSION: Congestive heart failure. No demonstrated pulmonary embolism or arterial dissection. Electronically Signed: Bekah Alonso MD at 5:44 EDT Tel , Service support , Laboratory Last Values WBC 10.7 K/mm3 (4.4-11.0) 07/13/20 02:45 RBC 4.83 M/mm3 (4.2-5.4) 07/13/20 02:45 Hgb 14.3 g/dL (12.0-15.0) 07/13/20 02:45 Hct 45.5 % (37-47) 07/13/20 02:45 MCV 94.2 fL (81-99) 07/13/20 02:45 MCH 29.6 pg (27.0-32.0) 07/13/20 02:45 MCHC 31.4 g/dL (32-36) L 07/13/20 02:45 RDW Std Deviation 53.1 fl (35.1-43.9) H 07/13/20 02:45 RDW Coeff of [place] 15.3 % (11.6-14.6) H 07/13/20 02:45 Plt Count 236 K/mm3 (150-450) 07/13/20 02:45 MPV 12.0 fl (6.2-12.0) 07/13/20 02:45 Immature Gran % (Auto) 0.400 % (0.0-0.9) 07/13/20 02:45 Neut % (Auto) 63.6 % (47-70) 07/13/20 02:45 Lymph % (Auto) 25.1 % (19-41) 07/13/20 02:45 [place] % (Auto) 7.9 % (0-10) 07/13/20 02:45 Eos % (Auto) 2.3 % (0-5) 07/13/20 02:45 Baso % (Auto) 0.7 % (0-1) 07/13/20 02:45 Absolute Neuts (auto) 6.8 X10^3/uL (2.0-7.7) 07/13/20 02:45 Absolute Lymphs (auto) 2.69 X10^3/uL (0.83-4.51) 07/13/20 02:45 Nucleated RBC % 0 % (0-5) 07/13/20 02:45 PT 25.2 SECONDS (11.7-14.9) H 07/13/20 02:45 INR 2.3 07/13/20 02:45 APTT 29.0 Seconds (24.1-36.2) 07/13/20 02:45 Sodium 140 mmol/L (136-145) 07/13/20 02:45 Potassium 4.5 mmol/L (3.5-5.1) 07/13/20 02:45 Chloride 107 mmol/L (98-107) 07/13/20 02:45 Carbon Dioxide 28.0 mmol/L (21.0-32.0) 07/13/20 02:45 Anion Gap 5 (5-15) 07/13/20 02:45 BUN 29 mg/dL (7-18) H 07/13/20 02:45 Creatinine 1.50 mg/dL (0.55-1.02) H 07/13/20 02:45 Estim Creat Clear Calc 28.71 ml/min 07/13/20 02:45 Est GFR (MDRD) Af Amer 43 mL/min (>60) L 07/13/20 02:45 Est GFR (MDRD) Non-Af 36 mL/min (>60) L 07/13/20 02:45 BUN/Creatinine Ratio 19.3 RATIO (10-20) 07/13/20 02:45 Glucose 392 mg/dL (74-106) H 07/13/20 02:45 Lactic Acid 1.5 mmol/L (0.4-1.9) 07/13/20 03:20 Calcium 8.9 mg/dL (8.5-10.1) 07/13/20 02:45 Total Bilirubin 0.40 mg/dL (0.20-1.00) 07/13/20 02:45 AST 54 U/L (15-37) H 07/13/20 02:45 ALT 59 U/L (13-56) H 07/13/20 02:45 Alkaline Phosphatase 92 U/L (45-117) 07/13/20 02:45 Troponin I 0.122 ng/mL (<0.045) H 07/13/20 02:45 B-Natriuretic Peptide 284.9 pg/mL (0-100) H 07/13/20 02:45 Total Protein 7.6 g/dL (6.4-8.2) 07/13/20 02:45 Albumin 3.7 g/dL (3.2-5.0) 07/13/20 02:45 Globulin 3.9 g/dL (2.2-4.2) 07/13/20 02:45 Albumin/Globulin Ratio 0.9 RATIO (0.9-2.4) 07/13/20 02:45 - Medical Decision Making Patient was given supplemental oxygen but eventually grew increasingly dyspneic and more fatigued. She was placed on BiPAP seems to have stabilized. Her EKG shows a sinus rhythm with left bundle branch block. Last EKG I have is from in March 2019 which did not have a bundle branch block present. Her troponin 0.1. Creatinine slightly elevated at 1.5. Her white count is normal lactic acid is normal. Beta natruretic peptide is about 280. Her pH is 7.1 with PCO2 of 77 and bicarb of 26. Patient received breathing treatments and Solu-Medrol. INR 2.3. My interpretation of the chest x-ray is pulmonary edema versus Covid. As we are approaching time benchmarks I gave Levaquin to cover for possible bacterial pneumonia. CTA of the chest was obtained to obtain a better understanding of her lung pathology. This is more consistent with pulmonary edema. Her repeat EKG still shows left bundle and her troponin is now 1.9. She was placed on aspirin, heparin and nitroglycerin drips, and given Lasix. Case was discussed with hospitalist and cardiology Dr. Leon. Plan is admission into the ICU. Patient was updated. ?Takotsubo ?NSTEMI vs. STEMI with new left bundle? vs Flash Pulmonary Edema with strain - Critical Care Time Critical care time (excluding procedures): 30-74 minutes, Discussing w/Patient &/or Family/Job Site Superintendent, Discussing w/Consultants, Arranging Admission or Transfer, Performing Direct Patient Care at Bedside ED Disposition - Plan for ED Patient: Disposition: Acute Care [facility] Diagnosis: Acute respiratory failure, Acute respiratory acidosis, Elevated troponin, Left bundle branch block, NSTEMI (non-ST elevated myocardial infarction), Pulmonary edema Referrals: Rufus Blanco DO [Primary Care Provider] -
[2020-07-13] MEDS: Nitroglycerin SL (ED/IMG/CATH) 0.4 MG TABLET SL (04:44)
[2020-07-13 05:04] LABS: Allen Test POS; Blood Gas Specimen Type ART; SITE L RADIAL
[2020-07-13 05:05] LABS: O2 Delivery Device NRB
[2020-07-13 05:13] LABS: pH 7.16 (7.35-7.45)
[2020-07-13 05:15] LABS: Bicarbonate 26.2 mmol/L (22-26); PO2 76 mmHG (75-100); pCO2 73.3 mmHg (35-45)
[2020-07-13 05:16] LABS: Base Excess -3 mmol/L (-2 to +2); Total Carbon Dioxide 29 mmol/L
--- NOTE | 2020-07-13 05:21 | ED.RN ---
PT GIVES VERBAL PERMISSION TO GIVE MEDICAL INFORMATION OVER THE PHONE. THIS RN SPOKE WITH DAUGHTER EARL MANDUJANO. EARL WISHES TO HAVE A STATUS UPDATE PRIOR TO PT ADMISSION AT [phone]
--- NOTE | 2020-07-13 05:24 | EKG12_ITS ---
Test Reason : DYSRHYTHMIA Blood Pressure : / mmHG Vent. Rate : 100 BPM Atrial Rate : 100 BPM P-R Int : 104 ms QRS Dur : 158 ms QT Int : 366 ms P-R-T Axes : 047 018 186 degrees QTc Int : 472 ms Sinus rhythm with short NE Left bundle branch block Abnormal ECG Confirmed by LEE TORRES, LIZETTE ([id number]), assistant film editor MICHAEL BARROSO ([id number]) on 07/15/2020 12:52:10 PM Referred By: KRISTINE Confirmed By:LIZETTE HOWARD MD
[2020-07-13] MEDS: Ondansetron 4 MG/2 ML Vial IV (05:41)
[2020-07-13] MEDS: Morphine 4 MG/ML Syringe IV (05:41)
[2020-07-13] MEDS: levoFLOXacin IV 750 MG/150 ML BAG 100 MG IV (05:42)
[2020-07-13 06:02] LABS: SO2 90 % (95-99)
--- NOTE | 2020-07-13 06:10 | ED.RN ---
elevated trop 1.[address] Toledo is aware
[2020-07-13] MEDS: Furosemide 100 MG/10 ML Vial 60 MG IV (06:19)
[2020-07-13] MEDS: Nitroglycerin Infusion 250 ML 3 MG CONT INF (06:49)
[2020-07-13] MEDS: HEPARIN/D5w 25,000 UNITS 25,000 UNITS/250 ML IV.SOLN. 14 UNITS IV (06:56)
[2020-07-13] MEDS: Heparin Injection (Vial) 5,000 UNIT/ML VIAL 7500 UNIT IV (06:59)
[2020-07-13] MEDS: Aspirin 325 MG Tablet PO (07:02)
--- NOTE | 2020-07-13 07:22 | ED.RN ---
Called daughter 2 times to give her an update and left voicemail with quick run down but told her to call back for more info and told her will be taking patient to ICU once report is given.
--- NOTE | 2020-07-13 07:24 | ED.RN ---
Patient came in when she woke up with SOB and CP that started on the right side and then went to L. She ended up on bip[ap as she was not able to keep sat above 90 with NC or nonrebreather at 15. She was given 1 nitro and asa by squad and then received solu med, breathing treatments here. We later gave her 1 more nitro SL and later morphine and zofran. She came up on sepsis alert but d/y elevated bnp and chf on cta, ni fluids were given. Trop was elevated both times and showed LBB on ecg with all symptoms and labs/tests, called NSTEMI and given bolus 7500u hep, drip at 1400unite/hour and then a nitro drip at 3ml/hour and will be titrated from there. Was also given Po full dose asa and 60 lasix IV to see if can get fluid off for possible cath procedure. Patient pain is a 5 now and 138/72. 94p, 23resp, 97.8temporal, 91% bipap at 70%. CHF on CTA, pneumonia on cxr and levaquin IV was started. Respiratory acidosis on ABG. Patient being admitted to ICU and daughter Caitlin Gunter has been called but had to leave a message. Marcus being put in by new nurse on duty while this nurse talked to daughter for update and to relay messages with patient. patient and daughtercaitlin are updated [phone].
--- NOTE | 2020-07-13 08:09 | HP.PCM_ITS ---
Problem List (1) (HFpEF) heart failure with preserved ejection fraction Status: Acute Qualifiers: Heart failure chronicity: acute Qualified Code(s): I50.31 - Acute diastolic (congestive) heart failure (2) Acute respiratory failure with hypoxia and hypercapnia Status: Acute (3) COPD exacerbation Status: Chronic (4) Acute respiratory failure Status: Acute Qualifiers: Respiratory failure complication: hypoxia and hypercapnia Qualified Code(s): J96.01 - Acute respiratory failure with hypoxia; J96.02 - Acute respiratory failure with hypercapnia (5) Acute respiratory acidosis Status: Acute (6) Elevated troponin Status: Acute (7) Left bundle branch block Status: Acute (8) NSTEMI (non-ST elevated myocardial infarction) Status: Acute (9) Pulmonary edema Status: Acute Qualifiers: Chronicity: acute Qualified Code(s): J81.0 - Acute pulmonary edema (10) Obesity Status: Chronic Qualifiers: Obesity type: due to excess calories Obesity classification: adult class 2 (BMI 35 - 39.9) Serious obesity comorbidity presence: with serious comorbidity Body mass index: BMI 38.0-38.9 Qualified Code(s): E66.01 - Morbid (severe) obesity due to excess calories; Z68.38 - Body mass index [BMI] 38.0-38.9, adult (11) Obesity (BMI 30-39.9) Status: Chronic (12) COPD exacerbation Status: Chronic (13) Allergic rhinitis Status: Chronic Qualifiers: Allergic rhinitis trigger: pollen Allergic rhinitis seasonality: seasonal Qualified Code(s): J30.1 - Allergic rhinitis due to pollen (14) Lung nodule Status: Chronic Comment: 5.5 mm LLL (15) Stage 2 moderate COPD by GOLD classification Status: Chronic (16) Menieres disease Status: Chronic (17) Gastroesophageal reflux disease with hiatal hernia Status: Chronic (18) Essential hypertension Status: Chronic (19) Dyslipidemia Status: Chronic (20) Diabetes mellitus, type 2 Status: Chronic Qualifiers: Diabetes mellitus longterm insulin use: with longterm use Diabetes mellitus complication status: with kidney complications Diabetes mellitus complication detail: with chronic kidney disease Chronic kidney disease stage: stage 3 (moderate) Chronic kidney disease stage 3 subtype: stage 3a (GFR 45- 59) Qualified Code(s): E11.21 - Type 2 diabetes mellitus with diabetic nephropathy; N18.31 - Chronic kidney disease, stage 3a; Z79.4 - certified nurses aide (current) use of insulin (21) DVT of lower extremity (deep venous thrombosis) Status: Chronic Comment: on coumadin (22) Obesity (BMI 30-39.9) Status: Chronic (23) Depression Status: Chronic (24) Chronic renal failure, stage 3 (moderate) Status: Chronic (25) Anxiety disorder Status: Chronic Qualifiers: Anxiety disorder type: generalized anxiety disorder Qualified Code(s): F41.1 - Generalized anxiety disorder History of Present Illness Date of Admission: 07/13/20 Chief Complaint: chest pain and shortness of breath The patient is a 75 year old F chest pain and shortness of breath. History primarily taken through the emergency room physician as patient is currently on BiPAP and difficult to understand. Patient woke up this a.m. with chest pain that moves throughout her chest but was also short of breath. EMS was contacted and presented and patient was noted to be hypoxic with in the 80s on room air. Patient was started on oxygen. Patient has been undergoing cycling amount of psychological duress is her significant other has been recently informed of a poor prognosis and not expected to live past 6 months. This has been stressful for her. Patient was on 6 L nasal cannula then changed over to nonrebreather and then eventually BiPAP. Patient had a BNP that was elevated at 284.9, initial troponin was 0.122 and then went up to 1.91. Cardiology was contacted and advised anticoagulation nitro drip. Patient additionally received IV furosemide, IV Levaquin, IV methylprednisolone. Currently patient reports feeling better at this time. [] Past Medical History Past Medical History (Chronic Problems): Chronic Problems (Last Reviewed 07/02/20 @ 10:53 by Savanah Lilly FORGING PRESS LEVER TENDER, FORGING PRESS LEVER TENDER-C) COPD exacerbation (Chronic) Obesity (Chronic) Obesity (BMI 30-39.9) (Chronic) COPD exacerbation (Chronic) Allergic rhinitis (Chronic) Lung nodule (Chronic) 5.5 mm LLL Stage 2 moderate COPD by GOLD classification (Chronic) Menieres disease (Chronic) Gastroesophageal reflux disease with hiatal hernia (Chronic) Essential hypertension (Chronic) Dyslipidemia (Chronic) Diabetes mellitus, type 2 (Chronic) DVT of lower extremity (deep venous thrombosis) (Chronic) on coumadin Obesity (BMI 30-39.9) (Chronic) Depression (Chronic) Chronic renal failure, stage 3 (moderate) (Chronic) Anxiety disorder (Chronic) Medical History: Medical History (Last Reviewed 07/13/20 @ 08:[address] Moise Krishnamurthy, DO) Menieres disease (Chronic) H81.09 Gastroesophageal reflux disease with hiatal hernia (Chronic) K21.9, K44.9 Essential hypertension (Chronic) I10 Dyslipidemia (Chronic) E78.5 Diabetes mellitus, type 2 (Chronic) E11.9 DVT of lower extremity (deep venous thrombosis) (Chronic) I82.4Z9 on coumadin Obesity (BMI 30-39.9) (Chronic) E66.9 Depression (Chronic) F32.9 Chronic renal failure, stage 3 (moderate) (Chronic) N18.3 Anxiety disorder (Chronic) F41.9 Allergies Penicillins Allergy (Verified 07/13/20 02:49) Angioedema rosiglitazone maleate [From Avandia] Allergy (Verified 07/13/20 02:49) hyperglycemia cephalexin [From Keflex] Adverse Reaction (Verified 07/13/20 02:49) Diarrhea doxycycline Adverse Reaction (Verified 07/13/20 02:49) Diarrhea prednisone Adverse Reaction (Verified 07/13/20 02:49) hyperglycemia HYPERGLYCEMIA Sulfa (Sulfonamide Antibiotics) Adverse Reaction (Verified 07/13/20 02:49) Unknown pt is unsure Home Medications: Ambulatory Orders Medication Instructions Recorded Warfarin [Coumadin] 2.5 mg PO .COMPLEX 08/28/14 Lisinopril [Zestril] 20 mg PO BID #60 tab 02/22/15 Clonazepam [Klonopin] 1 mg PO TID PRN PRN 08/14/15 Famotidine [Pepcid] 20 mg PO QHS 08/14/15 amlodipine 5 mg tablet 5 mg PO QHS 08/28/17 fenofibrate nanocrystallized 145 145 mg PO QHS 08/28/17 mg tablet hydrochlorothiazide 25 mg tablet 25 mg PO QAM 08/28/17 albuterol sulfate 2.5 mg INHALATION Q4H PRN 02/10/19 Simvastatin 40 mg PO QHS 04/02/19 ipratropium 0.5 mg-albuterol 3 mg 3 ml INHALATION Q6H PRN #180 ml 09/24/19 (2.5 mg base)/3 mL nebulization soln flash glucose scanning reader See Rx Instructions .ROUTE 01/29/20 .MEDSUPPLY #1 ea flash glucose sensor See Rx Instructions .ROUTE 01/29/20 .MEDSUPPLY #2 ea insulin glargine 100 unit/mL (3 30 unit SC DAILY #15 ml 01/29/20 mL) subcutaneous pen insulin lispro 100 unit/mL 15 unit SC TID #15 ml 01/29/20 subcutaneous pen pen needle, diabetic 32 gauge x See Rx Instructions .ROUTE 01/29/20 5/32 .MEDSUPPLY #100 ea blood sugar diagnostic See Rx Instructions .ROUTE 01/30/20 .MEDSUPPLY #50 ea guaifenesin 1,200 mg tablet, 1,200 mg PO Q12H #60 tab 03/31/20 extended release 12 hr montelukast 10 mg tablet 10 mg PO QPM #30 tab 07/02/20 Surgical History: Surgical History (Last Reviewed 07/13/20 @ 08:[address] Moise Krishnamurthy DO) History of (Inactive) Z98.891 X3 S/P cholecystectomy (Inactive) Z90.49 Surgical History: cholecystectomy, - - Psychiatric History: Anxiety PATIENT'S LIBRARIAN History: No pertinent PATIENT'S LIBRARIAN history Lives: Spouse/ Significant Other Smoking Status: Former smoker Tobacco Use: Non-smoker Drugs: None - *Family History Maternal Family History: Family History (Last Reviewed 07/13/20 @ 08:[address] Moise Krishnamurthy DO) Sister Lupus Arthritis Brother Colon cancer Cancer Arthritis Father Diabetes Heart disease Mother Hypertension History Items: No pertinent history Paternal Family History: Family History (Last Reviewed 07/13/20 @ 08:[address] Moise Krishnamurthy DO) Sister Lupus Arthritis Brother Colon cancer Cancer Arthritis Father Diabetes Heart disease Mother Hypertension History Items: No pertinent history Review of Systems Constitutional: Denies: Anorexia, Chills, Fever Eyes: Denies: Blurred vision, Double vision HEENT: Denies: Head Aches, Sinus Congestion, Sinus Drainage Cardiovascular: Reports: Chest Pain, Edema Respiratory: Reports: Cough, Shortness of Breath, Shortness of breath at rest Gastrointestinal: Denies: Abdominal Pain, Nausea, Vomiting Musculoskeletal: Denies: Joint Pain, Joint Tenderness Hematologic/ Lymphatic: Denies: Easy Bruising, Easy Bleeding, Hx of blood clot Comment: All review of systems were negative except as mentioned above in the history of present illness and the other review of systems. VTE Information - Inpt Only VTE Present on Admission: No VTE Mechan Device Prophylaxis: None VTE Pharm Prophylaxis ordered?: No Reason prophylaxis not ordered:: Treatment Not Indicated Patient Problems: Active and Suspected Problems (Last Reviewed 07/02/20 @ 10:53 by Savanah Lilly FORGING PRESS LEVER TENDER, FORGING PRESS LEVER TENDER-C) Acute respiratory failure (Acute) Acute respiratory acidosis (Acute) Elevated troponin (Acute) Left bundle branch block (Acute) NSTEMI (non-ST elevated myocardial infarction) (Acute) Pulmonary edema (Acute) - Physical Exam Vitals/I&O's: Vital Signs Temp Pulse Resp BP Pulse Ox 36.6 C 94 23 H 155/73 H 93 07/13/20 07:17 07/13/20 07:17 07/13/20 07:17 07/13/20 07:25 07/13/20 07:17 Oxygen Flow Rate (L/min) 15 Oxygen Delivery Method Bi-pap Weight: 100.1 kg Body Mass Index (BMI) 36.7 Finger Stick Blood Glucose 241 Intake and Output for Last 24 Hours 07/11/20 07/12/20 07/13/20 23:59 23:59 23:59 Intake Total 151.8 / 151.8 Balance 151.8 / 151.8 General: Alert, Cooperative, - - On BiPAP. No respiratory distress. No conversational dyspnea. Conversation is limited given the BiPAP and difficulty understanding with the patient is saying. HEENT: Atraumatic, Normocephalic Oral: Moist Mucosa, No Gingival or Mucosal Lesions/ Ulcerations Neck: No Nodes, Thyroid Normal Size and Texture Lungs: No rhonchi, No wheeze, - - Coarse breath sounds bilaterally Cardiovascular: Regular rate, Regular Rhythm, Normal S1, Normal S2, No murmurs Abdomen: Bowel Sounds Present, Soft, Non Tender, Non-Distended, No Hepato- splenomegaly Extremities: No Calf Tenderness, Edema - Trace Skin: No rashes, No breakdown Musculoskeletal: No Tenderness to Palpation of Joints or Extremities, No Muscle Wasting, Arthritic Changes, Cachexia Lymphatic: No Cervical, Supraclavicular, or Inguinal Adenopathy, Cervical Adenopathy Neurological: Muscle tone normal, Sensory exam intact to light touch and pain Psych/Mental Status: Normal Affect, Appropriate Microbiology Past 72 Hours 07/13/20 03:20 Mucosa - Nose SARS-CoV-2 Antigen (Rapid) - Final Laboratory Results 07/13/20 02:45: WBC 10.7, RBC 4.83, Hgb 14.3, Hct 45.5, MCV 94.2, MCH 29.6, MCHC 31.4 L, RDW Std Deviation 53.1 H, RDW Coeff of [place] 15.3 H, Plt Count 236, MPV 12.0, Immature Gran % (Auto) 0.400, Neut % (Auto) 63.6, Lymph % (Auto) 25.1, [place] % (Auto) 7.9, Eos % (Auto) 2.3, Baso % (Auto) 0.7, Absolute Neuts (auto) 6.8, Absolute Lymphs (auto) 2.69, Nucleated RBC % 0 07/13/20 02:45: Sodium 140, Potassium 4.5, Chloride 107, Carbon Dioxide 28.0, Anion Gap 5, BUN 29 H, Creatinine 1.50 H, Estim Creat Clear Calc 28.71, Est GFR (MDRD) Af Amer 43 L, Est GFR (MDRD) Non-Af 36 L, BUN/Creatinine Ratio 19.3, Gluc ose 392 H, Calcium 8.9, Total Bilirubin 0.40, AST 54 H, ALT 59 H, Alkaline Phosphatase 92, Troponin I 0.122 H, Total Protein 7.6, Albumin 3.7, Globulin 3.9, Albumin/Globulin Ratio 0.9 07/13/20 02:45: B-Natriuretic Peptide 284.9 H 07/13/20 02:45: PT 25.2 H, INR 2.3, APTT 29.0 07/13/20 03:20: Lactic Acid 1.5 07/13/20 03:46: Specimen Type ART, Sample Site L RADIAL, pH 7.16 L*, Bicarbonate Actual 26.2 H, Total CO2 29, Base Excess -3 L, O2 Saturation 90 L, ABG pCO2 73.3 H*, ABG pO2 76, Walter Test POS, O2 Delivery Device NRB, Liter Flow 15.0, Crit Call To/Read Back Yes, Blood Gas Notified Whom DR. [place], Blood Gas Notified Time 0346 07/13/20 04:37: COVID-19 ([facility]) Not Detected 07/13/20 05:40: Troponin I 1.910 H* CT angiogram of the chest personally reviewed and showed no pulmonary embolism, did show diffuse pulmonary vascular congestion. EKG reviewed showed normal sinus rhythm with left bundle branch block. Last available EKG was from April 21, 2019 and showed normal sinus rhythm at that time with no left bundle branch block. Current Medications Heparin Sodium (Porcine) (Heparin Injection (Vial) 5,000 Unit/Ml Vial) 0 unit IV UD PRN; Protocol PRN Reason: dose adjustment Heparin Sodium/Dextrose () 25,000 units in 250 mls @ 14 mls/hr IV .[id number] [facility]; Protocol Last Admin: 07/13/20 06:56 Dose: 1,400 units/hr, 14 mls/hr Documented by: Nitroglycerin/Dextrose () 250 mls @ 3 mls/hr CONT INF .[id number] [facility]; Protocol Last Titration: 07/13/20 07:25 Dose: 10 mcg/min, 6 mls/hr Documented by: Assessment/Plan All Active Problems (Last Reviewed 07/02/20 @ 10:53 by Savanah Lilly FORGING PRESS LEVER TENDER, FORGING PRESS LEVER TENDER- C) Acute respiratory failure (Acute) Acute respiratory acidosis (Acute) Elevated troponin (Acute) Left bundle branch block (Acute) NSTEMI (non-ST elevated myocardial infarction) (Acute) Pulmonary edema (Acute) (HFpEF) heart failure with preserved ejection fraction (Acute) Acute respiratory failure with hypoxia and hypercapnia (Acute) 1. Acute hypoxic and hypercapnic respiratory failure Stabilized with BiPAP Likely multifactorial due to CHF and the patient's known history of COPD Plan * Wean oxygen as tolerated. * Patient will be monitored currently in the ICU in case she were to decline. 2. Acute heart failure with preserved ejection fraction EF 65% from echocardiogram on 04/03/2019 Plan * IV furosemide * Repeat echocardiogram 3. Non-ST elevation myocardial infarction New low bundle-branch block, least from 2019 Cardiology has been contacted and will see the patient in consultation Plan * Patient already anticoagulated as her INR is 2.3. We will hold off on additional warfarin at this time given anticipated cardiac catheterization on * Check echocardiogram * Hold off on beta-urszula given the acute CHF but also with patient's known history of severe large airway obstructive disease 4. COPD I doubt an acute exacerbation at this time but difficult to tease out definitively Plan * Bronchodilators * IV methylprednisolone for now 5. History of VTE Currently anticoagulated his INR is 2.3. Warfarin currently being held anticipation of a cardiac catheterization on the . 6. Diabetes mellitus type 2 Last A1c was 8.5 from January 28 Plan * Sliding scale insulin * Will need to find out definitively what her home medications are and resume those when able. 7. VTE prophylaxis: Not indicated this patient is already anticoagulated 8. Advanced care planning: Patient initially unsure. Informed patient that we would leave her at full CODE STATUS unless she were to indicate otherwise at a later point. Inpatient E&M: [id number] Init Hosp L3
--- NOTE | 2020-07-13 08:12 | ECHOCS_ITS ---
Reason For Study: CHF Procedure This was a 2D Doppler, Color Flow transthoracic echocardiogram. The study was technically difficult. Contrast injection was performed. Exam performed portable in ICU/CCU. Left Ventricle Normal LV size. The estimated ejection fraction is 25 %. Stage 1 diastolic dysfunction. Severe segmental systolic dysfunction (see wall motion). Sparks : Akinetic. Mid-Anterior : Akinetic. Infero- Basal: Akinetic. The rest of the wall segments are hypokinetic. Right Ventricle Normal RV size. Normal systolic function. Atria Normal left atrium. Normal right atrium. Mitral Valve Bileaflet diffuse mitral valve thickening. Mild-Moderate (1-2+) eccentric mitral valve insufficiency. Tricuspid Valve Normal tricuspid valve. Moderate (2+) tricuspid valve insufficiency. Pulmonary artery systolic pressure is 67 mmHg. Moderate pulmonary hypertension. Aortic Valve Trisinus/trileaflet aortic valve. Pulmonic Valve Normal pulmonic valve. Great Vessels Normal aortic root. The pulmonary artery is normal size. The inferior vena cava is dilated. Pericardium/Pleural No pericardial effusion. Medication Diluted definity 5ml given slow IV push to enhance endocardial definition. MMode/2D Measurements & Calculations LVIDd: 5.2 cm IVSd: 0.90 cm Ao root diam: 2.2 cm LVIDs: 4.4 cm LVPWd: 0.89 cm FS: 15.2 % LAV(MOD-bp): 54.9 ml LVAd ap4: 44.1 cm2 SV(MOD-sp4): 48.0 ml LAV(MOD-bp) Indexed: 26.6 ml/m2 EDV(MOD-sp4): 191.2 ml LAV(MOD-sp2): 62.3 ml EDV(sp4-el): 192.6 ml LAV(MOD-sp4): 48.2 ml LVAs ap4: 37.0 cm2 ESV(MOD-sp4): 143.2 ml ESV(sp4-el): 145.4 ml EF(MOD-sp4): 25.1 % EF(sp4-el): 24.5 % SV(sp4-el): 47.2 ml LA A4 area: 17.8 cm2 LA dimension(2D): 3.6 cm RA A4 area: 12.8 cm2 Time Measurements MV dec time: 0.22 sec Doppler Measurements & Calculations MV E max harjit: 80.8 cm/sec Lat Peak E' Harjit: 6.8 cm/sec Med Peak E' Harjit: 2.4 cm/sec MV A max harjit: 105.8 cm/sec E/E' lat: 11.9 E/E' med: 33.9 MV E/A: 0.76 Ao V2 max: 109.0 cm/sec LV V1 max: 76.6 cm/sec TR max harjit: 380.6 cm/sec Ao max P.8 mmHg LV V1 max P.3 mmHg TR max P.9 mmHg Interpretation Summary Pulmonary artery systolic pressure is 67 mmHg. Moderate pulmonary hypertension. Stage 1 diastolic dysfunction. The estimated ejection fraction is 25 %. Severe segmental systolic dysfunction (see wall motion). Contrast injection was performed. Ordering Physician: Moise Krishnamurthy Referring Physician: ERIKA BARBOSA Performed By: Earlene Patricio, JOSSELIN, RVT
--- NOTE | 2020-07-13 09:42 | CON.PCM_ITS ---
Reason for Consult Date of Consultation: 07/13/20 Reason for Consultation: Chest pain and shortness of breath History of Present Illness: The patient is a 75 year old F who presented to the emergency room with shortness of breath. She went to bed yesterday and noticed that she could not breathe and was also associated with shortness of breath. She presented to the emergency room an EKG was done which demonstrated a left bundle branch block pattern. She was also noted to be markedly short of breath and acidotic and required BiPAP treatment. A CT scan was also performed to exclude COVID-19. Her Covid test was noted to be unremarkable. 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 I was called for an emergency room. We started her on intravenous nitroglycerin drip as well as intravenous Lasix together with her BiPAP and she has improved significantly and is now in the ICU. She denies any chest discomfort. She is still mildly short of breath. She has had no dizziness or diaphoresis no near syncope or syncope she has been compliant with her anticoagulation. This was instituted for previous DVT. [] Past Medical History Allergies/Adverse Reactions: Allergies Penicillins Allergy (Verified 07/13/20 02:49) Angioedema rosiglitazone maleate [From Avandia] Allergy (Verified 07/13/20 02:49) hyperglycemia cephalexin [From Keflex] Adverse Reaction (Verified 07/13/20 02:49) Diarrhea doxycycline Adverse Reaction (Verified 07/13/20 02:49) Diarrhea prednisone Adverse Reaction (Verified 07/13/20 02:49) hyperglycemia HYPERGLYCEMIA Sulfa (Sulfonamide Antibiotics) Adverse Reaction (Verified 07/13/20 02:49) Unknown pt is unsure Home Medications: Ambulatory Orders Medication Instructions Recorded Warfarin [Coumadin] 2.5 mg PO .COMPLEX 08/28/14 Clonazepam [Klonopin] 1 mg PO TID PRN PRN 08/14/15 Famotidine [Pepcid] 20 mg PO QHS 08/14/15 amlodipine 5 mg tablet 5 mg PO QHS 08/28/17 fenofibrate nanocrystallized 145 145 mg PO QHS 08/28/17 mg tablet hydrochlorothiazide 25 mg tablet 25 mg PO QAM 08/28/17 albuterol sulfate 2.5 mg INHALATION Q4H PRN 02/10/19 Simvastatin 40 mg PO QHS 04/02/19 ipratropium 0.5 mg-albuterol 3 mg 3 ml INHALATION Q6H PRN #180 ml 09/24/19 (2.5 mg base)/3 mL nebulization soln flash glucose scanning reader See Rx Instructions .ROUTE 01/29/20 .MEDSUPPLY #1 ea flash glucose sensor See Rx Instructions .ROUTE 01/29/20 .MEDSUPPLY #2 ea pen needle, diabetic 32 gauge x See Rx Instructions .ROUTE 01/29/20 .MEDSUPPLY #100 ea blood sugar diagnostic See Rx Instructions .ROUTE 01/30/20 .MEDSUPPLY #50 ea montelukast 10 mg tablet 10 mg PO QPM #30 tab 07/02/20 Insulin Glargine,Hum.rec.anlog 30 unit SC DAILY 07/13/20 [Lantus Solostar U-100 Insulin] Insulin Lispro See Protocol SC TID 07/13/20 Lisinopril [Zestril] 20 mg PO BID 07/13/20 Past Medical History (Chronic Problems): Chronic Problems (Last Reviewed 07/13/20 @ 08:[address] Moise Krishnamurthy DO) COPD exacerbation (Chronic) Obesity (Chronic) Obesity (BMI 30-39.9) (Chronic) COPD exacerbation (Chronic) Allergic rhinitis (Chronic) Lung nodule (Chronic) 5.5 mm LLL Stage 2 moderate COPD by GOLD classification (Chronic) Menieres disease (Chronic) Gastroesophageal reflux disease with hiatal hernia (Chronic) Essential hypertension (Chronic) Dyslipidemia (Chronic) Diabetes mellitus, type 2 (Chronic) DVT of lower extremity (deep venous thrombosis) (Chronic) on coumadin Obesity (BMI 30-39.9) (Chronic) Depression (Chronic) Chronic renal failure, stage 3 (moderate) (Chronic) Anxiety disorder (Chronic) Surgical History: cholecystectomy, - - Psychiatric History: Anxiety 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 Moise Krishnamurthy DO) Sister Lupus Arthritis Brother Colon cancer Cancer Arthritis Father Diabetes Heart disease Mother Hypertension History Items: No pertinent history Paternal Family History: Family History (Last Reviewed 07/13/20 @ 08:[address] Moise Krishnamurthy DO) Sister Lupus Arthritis Brother Colon cancer Cancer Arthritis Father Diabetes Heart disease Mother Hypertension History Items: No pertinent history Lives: Spouse/ Significant Other Smoking Status: Former smoker Tobacco Use: Non-smoker Drugs: None Review of Systems - Review of Systems General: Denies: Fever, Night Sweats, Fatigue HEENT: Denies: Vision Change Cardiovascular: Reports: Chest Discomfort, Shortness of Breath, Shortness of Breath at Rest. Denies: Orthopnea, PND, Peripheral Edema, Palpitations, Lightheadedness, Dizziness, Near Syncope, Syncope Respiratory: Denies: Cough, Sputum Production, Hemoptysis Gastrointestinal: Denies: Hematemesis, Hematochezia, Melena Genitourinary: Denies: Dysuria, Hematuria Skin: Denies: Rash Neurological: Denies: Dizziness Psychiatric: Denies: Anxiety Subjectve: Pleasant lady somewhat short of breath. Objective: Vital Signs Temp Pulse Resp BP Pulse Ox 97.8 F 84 18 131/67 H 96 07/13/20 07:17 07/13/20 09:15 07/13/20 09:15 07/13/20 09:15 07/13/20 09:15 Oxygen Flow Rate (L/min) 15 Oxygen Delivery Method Bi-pap Weight: 220 lb 10.923 oz Body Mass Index (BMI) 36.7 Finger Stick Blood Glucose 241 Intake and Output for Last 24 Hours 07/11/20 07/12/20 07/13/20 23:59 23:59 23:59 Intake Total 151.8 / 151.8 Balance 151.8 / 151.8 General: Awake, Alert, Oriented x 3 HEENT: PERRL, EOMI, Sclera Non Icteric Neck: Supple, Good ROM, No Lymph Node Enlargement Lungs: Diminished Chirag Bases Cardiovascular: Regular Rhythm, Normal S1, Normal S2, No Murmurs, No Rubs, No Gallops Vascular: No Carotid Bruits, Normal Femoral Pulses, Normal Radial Pulses, Normal Dorsalis Pedal Pulse, Normal Posterior Tibial Pulses Abdomen: Bowel Sounds Present, Soft, Non Tender, No HSM, No Organomegaly Extremities: No Cyanosis, No Clubbing, No edema Musculoskeletal: No Erythema Skin: No Rashes Lymphatic: No Lymph Node Enlargement Neurological: No Focal Motor or Sensory Deficit Psych/Mental Status: Appropriate 07/13/20 02:45: WBC 10.7, RBC 4.83, Hgb 14.3, Hct 45.5, MCV 94.2, MCH 29.6, MCHC 31.4 L, Plt Count 236, MPV 12.0, Immature Gran % (Auto) 0.400, Neut % (Auto) 63.6, Lymph % (Auto) 25.1, [place] % (Auto) 7.9, Eos % (Auto) 2.3, Baso % (Auto) 0.7, Absolute Neuts (auto) 6.8, Nucleated RBC % 0 07/13/20 02:45: Sodium 140, Potassium 4.5, Chloride 107, Carbon Dioxide 28.0, Anion Gap 5, BUN 29 H, Creatinine 1.50 H, Est GFR (MDRD) Af Amer 43 L, Est GFR (MDRD) Non-Af 36 L, BUN/Creatinine Ratio 19.3, Glucose 392 H, Calcium 8.9, Total Bilirubin 0.40, Troponin I 0.122 H 07/13/20 02:45: B-Natriuretic Peptide 284.9 H 07/13/20 02:45: PT 25.2 H, INR 2.3, APTT 29.0 07/13/20 03:20: Lactic Acid 1.5 07/13/20 03:46: pH 7.16 L*, Bicarbonate Actual 26.2 H, Base Excess -3 L, O2 Saturation 90 L, ABG pCO2 73.3 H*, ABG pO2 76, Walter Test POS 07/13/20 05:40: Troponin I 1.910 H* Rhythm: EKG: Normal sinus rhythm with a left bundle branch block pattern ECHO: Global reduction in left ventricular systolic function estimated ejection fraction of 30 to 35%. The inferior posterior wall appears to be particularly more hypokinetic. Assessment/Plan 1. Non-ST elevation myocardial infarction * Patient presents with shortness of breath and is noted to have a new left bundle branch block and cardiac enzymes consistent with a non-ST elevation myocardial infarction. * Patient is also in heart failure and will ultimately need a left heart catheterization. The risk benefits alternatives have been explained to her she understands and agrees to proceed. * Will hold Coumadin and wait for INR to drift below 2. * Will reinstitute aspirin * 2. Acute congestive heart failure-systolic * Patient presents with acute shortness of breath and is noted to be in congestive heart failure. * Will institute intravenous nitroglycerin as well as intravenous Lasix * Echocardiogram performed in process demonstrates reduced left ventricular systolic function * Will start beta-urszula * 3. Hypertension * Her blood pressure appears to be better controlled at this time on the intravenous nitroglycerin. * 4. Left bundle branch block * This appears to be new and likely secondary to coronary artery disease. * Will continue to observe for now * * Thank you for allowing me to participate in the care of your patient. Please don't hesitate to call if any issues arise.
[2020-07-13] MEDS: Furosemide 40 MG/4 ML Vial IV ×2 (10:23→17:35)
[2020-07-13 10:40] LABS: Allen Test Positive; Base Excess 1 mmol/L (-2 to +2); Bicarbonate 27.5 mmol/L (22-26); Blood Gas Specimen Type ART; FI02 75; Mode NIV; PEEP 8; PO2 82 mmHG (75-100); PS 18; SITE L Radial; SO2 94 % (95-99); Total Carbon Dioxide 29 mmol/L; pCO2 58.4 mmHg (35-45); pH 7.28 (7.35-7.45)
[2020-07-13 11:36] LABS: Bedside Glucose > 500 mg/dL (70-110)
[2020-07-13] MEDS: Insulin Lispro 100 UNIT/ML INSULN.PEN SC ×2 (11:42→17:35)
--- NOTE | 2020-07-13 11:50 | CASEMGMT ---
RN MADHU Note: assessment deferred @ this time as pt is on bipap therapy and unable to participate in assessment. Call received from [facility] magnus case supervisor, Carolin Crane (through [facility]). . -Patient has services at home: aide 1 day/week for 2 hours (patient is eligible for more, however, CM cannot find staffing), emergency response button and home meals. No assisted home health currently. -CM stated patient has been very stressed as her is very ill and [facility] but refused at the last minute. Patient said he bullied her into coming home and then only agreed to Palliative Care. CM is working with also. -SW will be updated. Laith BOWSERN RN ACM
[2020-07-13] MEDS: clonazePAM 1 MG Tablet PO ×2 (14:06→20:10)
[2020-07-13] MEDS: Insulin NPH Human 100 UNITS/ML PEN 20 UNITS SC (14:08)
--- NOTE | 2020-07-13 14:11 | CASEMGMT ---
According to [employer] website, the following are in network tertiary facilities: [facility], [facility], [facility], [facility], [facility], [facility] and .
[2020-07-13 14:21] LABS: Bedside Glucose > 500 mg/dL (70-110)
[2020-07-13] MEDS: 0.9% Saline Lock 10 ML Syringe IV ×2 (17:38→20:10)
[2020-07-13 17:51] LABS: Bedside Glucose 411 mg/dL (70-110)
[2020-07-13] MEDS: Metoprolol Tartrate 25 MG Tablet PO (20:09)
[2020-07-13] MEDS: Lisinopril 20 MG Tablet PO (20:10)
[2020-07-13] MEDS: Atorvastatin Calcium 40 MG Tablet PO (20:10)
[2020-07-14] VITALS (30 sets, daily range): BP systolic 100–138; BP diastolic 46–94; PULSE 54–67; RESP 15–24; TEMP 36.5–37.2; O2SAT 92–98
[2020-07-14 04:53] LABS: Absolute Lymphocyte Count 0.91 X10^3/uL (0.83-4.51); Basophil# 0.02 X10^3/uL; Basophil% 0.1 % (0-1); Hematocrit 41.2 % (37-47); Hemoglobin 12.8 g/dL (12.0-15.0); Lymphocyte # 0.91 X10^3/ul (4.0); Lymphocyte % 5.9 % (19-41); Mean Corp Hgb Conc 31.1 g/dL (32-36); Mean Corpuscular Hgb 28.8 pg (27.0-32.0); Mean Corpuscular Volume 92.8 fL (81-99); Mean Platelet Vol. 12.1 fl (6.2-12.0); Monocyte# 0.48 X10^3/uL; Monocyte% 3.1 % (0-10); NRBC Flagged by Analyzer 0 % (0-5); Neutrophil # 13.98 X10^3/uL (2.7-7.7); Neutrophil % 90.3 % (47-70); Platelet Count 199 K/mm3 (150-450); RBC Distribution Width CV 15.4 % (11.6-14.6); RBC Distribution Width SD 52.6 fl (35.1-43.9); Red Blood Count 4.44 M/mm3 (4.2-5.4); White Blood Count 15.5 K/mm3 (4.4-11.0)
[2020-07-14 05:01] LABS: International Normalized Ratio 2.5; Prothrombin Time (Protime)PT. 26.6 SECONDS (11.7-14.9)
[2020-07-14 05:09] LABS: ALB/GLOB Ratio 0.9 RATIO (0.9-2.4); AST(SGOT) 157 U/L (15-37); Alanine Aminotransfer ALT/SGPT 63 U/L (13-56); Albumin, Serum 3.2 g/dL (3.2-5.0); Alkaline Phosphatase 78 U/L (45-117); Anion Gap 7 (5-15); BUN 55 mg/dL (7-18); BUN/Creat Ratio 24.3 RATIO (10-20); Calcium,Total 8.5 mg/dL (8.5-10.1); Chloride 103 mmol/L (98-107); Creatinine, Serum 2.26 mg/dL (0.55-1.02); EST Glomerular Filtration Rate 22 mL/min (>60); Est Glom Filt Rate - Afr Amer 27 mL/min (>60); Estimated Creatinine Clearance 18.29 ml/min; Globulin 3.4 g/dL (2.2-4.2); Glucose 412 mg/dL (74-106); Potassium 5.2 mmol/L (3.5-5.1); Protein, Total 6.6 g/dL (6.4-8.2); Sodium Level 137 mmol/L (136-145)
[2020-07-14] MEDS: Metoprolol Tartrate 25 MG Tablet PO ×2 (05:55→22:00)
[2020-07-14] MEDS: Lisinopril 20 MG Tablet PO (05:56)
[2020-07-14] MEDS: 0.9% Saline Lock 10 ML Syringe IV ×2 (05:56→14:48)
[2020-07-14] MEDS: Acetaminophen 325 MG Tablet 650 MG PO ×2 (05:56→15:08)
--- NOTE | 2020-07-14 06:00 | EKG12_ITS ---
Test Reason : AM EKG Blood Pressure : / mmHG Vent. Rate : 069 BPM Atrial Rate : 069 BPM P-R Int : 152 ms QRS Dur : 148 ms QT Int : 482 ms P-R-T Axes : 053 -09 181 degrees QTc Int : 516 ms Normal sinus rhythm Left bundle branch block Abnormal ECG When compared with ECG of 13-JUL-2020 05:33, MANUAL COMPARISON REQUIRED, DATA IS UNCONFIRMED Confirmed by LEE TORRES, LIZETTE ([id number]), script editor MICHAEL BARROSO ([id number]) on 07/15/2020 1:07:52 PM Referred By: LEE Confirmed By:LIZETTE HOWARD MD
[2020-07-14] MEDS: 0.9% Normal Saline 1,000 ML 15 ML IV (06:44)
[2020-07-14 06:58] LABS: Hemoglobin A1c 8.5 % (3.8-5.6)
--- NOTE | 2020-07-14 07:06 | US_ITS ---
STUDY: RENAL ULTRASOUND - COMPLETE REASON FOR EXAM: Female, 75 years old. KIT TECHNIQUE: Ultrasound evaluation of the kidneys was performed with real-time and static plasencia-scale imaging. COMPARISON: None. FINDINGS: RIGHT KIDNEY: Normal location of the right kidney, which is normal in size. The right kidney measures 10.5 cm x 4.4 cm x 5.4 cm. There is a normal cortex of the right kidney. The renal cortex measures 1.1 cm. There is a 1.7 cm x 1.6 cm x 2 cm cyst. There are no right renal calculi. There is no right hydronephrosis. DISTAL RIGHT URETER: There is non-visualization of the distal right ureter. There is no demonstrated right ureterovesical junction calculus. There is no demonstrated right ureteral jet. LEFT KIDNEY: Normal location of the left kidney, which is normal in size. The left kidney measures 11.3 cm x 5.6 cm x 5.2 cm. There is a normal cortex of the left kidney. The renal cortex measures 1.1 cm. There is a 9 mm x 8 mm x 9 mm cyst. There are no left renal calculi. There is no left hydronephrosis. DISTAL LEFT URETER: There is non-visualization of the distal left ureter. There is no demonstrated left ureterovesical junction calculus. There is no demonstrated left ureteral jet. BLADDER: A HERNANEDZ catheter is seen within the urinary bladder. Urinary bladder is empty. US/Kidney and Bladder IMPRESSION: Small bilateral renal cysts larger on the right side. No acute abnormalities. Electronically Signed: Ketan Price MD at 12:59 EDT , Service support ,
[2020-07-14] MEDS: Ipratropium/Albuterol Sulfate 3 ML AMPUL.NEB INHALATION ×4 (07:20→19:00)
[2020-07-14] MEDS: clonazePAM 1 MG Tablet PO ×3 (08:05→22:00)
--- NOTE | 2020-07-14 08:27 | PN.CARD_ITS ---
Subjectve: Patient seen and evaluated. Appears to be doing better this morning. No chest pain noted Objective: Vital Signs Temp Pulse Resp BP Pulse Ox 98.1 F 57 L 18 126/56 H 98 07/14/20 04:00 07/14/20 07:20 07/14/20 07:20 07/14/20 07:00 07/14/20 07:20 Oxygen Flow Rate (L/min) 6 Oxygen Delivery Method Nasal Cannula Weight: 210 lb 8.663 oz Body Mass Index (BMI) 36.7 Finger Stick Blood Glucose 241 Intake and Output for Last 24 Hours 07/12/20 07/13/20 07/14/20 23:59 23:59 23:59 Intake Total 660.3 / 660.3 120 / 120 Output Total 2935 / 3035 400 / 400 Balance -2274.7 / -2374.7 -280 / -280 General: Awake, Alert, Oriented x 3 HEENT: PERRL, EOMI, Sclera Non Icteric Neck: Supple, Good ROM, No Lymph Node Enlargement Lungs: Clear to auscultation Cardiovascular: Regular Rhythm, Normal S1, Normal S2, No Murmurs, No Rubs, No Gallops 07/13/20 10:00: Troponin I 60.700 H* 07/13/20 10:37: pH 7.28 L, Bicarbonate Actual 27.5 H, Base Excess 1, O2 Saturation 94 L, ABG pCO2 58.4 H, ABG pO2 82, Walter Test Positive 07/13/20 12:15: Troponin I 90.500 H* 07/14/20 04:45: WBC 15.5 H, RBC 4.44, Hgb 12.8, Hct 41.2, MCV 92.8, MCH 28.8, MCHC 31.1 L, Plt Count 199, MPV 12.1 H, Immature Gran % (Auto) 0.600, Neut % (Auto) 90.3 H, Lymph % (Auto) 5.9 L, [place] % (Auto) 3.1, Eos % (Auto) 0.0, Baso % (Auto) 0.1, Absolute Neuts (auto) 14.0 H, Nucleated RBC % 0 07/14/20 04:45: PT 26.6 H, INR 2.5 07/14/20 04:45: Sodium 137, Potassium 5.2 H, Chloride 103, Carbon Dioxide 27.0, Anion Gap 7, BUN 55 H, Creatinine 2.26 H, Est GFR (MDRD) Af Amer 27 L, Est GFR (MDRD) Non-Af 22 L, BUN/Creatinine Ratio 24.3 H, Glucose 412 H, Calcium 8.5, Total Bilirubin 0.20 07/14/20 04:45: Hemoglobin A1c 8.5 H Rhythm: EKG: ECHO: Stress Test: Cardiac Cath: PCI: CT Surgery: Holter monitor: EPS: PPM: CXR: Chest CT Scan: Medical Necessity - Tobacco Use Smoking Status: Former smoker Tobacco Use: Non-smoker Assessment/Plan 1. Non-ST elevation myocardial infarction * Patient presents with shortness of breath and is noted to have a new left bundle branch block and cardiac enzymes consistent with a non-ST elevation myocardial infarction. * Patient is also in heart failure and will ultimately need a left heart catheterization. The risk benefits alternatives have been explained to her she understands and agrees to proceed. * Will hold Coumadin and wait for INR to drift below 2. * Will reinstitute aspirin * 2. Acute congestive heart failure-systolic * Patient presents with acute shortness of breath and is noted to be in congestive heart failure. * Will institute intravenous nitroglycerin as well as intravenous Lasix * Echocardiogram performed in process demonstrates reduced left ventricular s ystolic function * Will start beta-urszula * 3. Hypertension * Her blood pressure appears to be better controlled at this time on the intravenous nitroglycerin. * 4. Left bundle branch block * This appears to be new and likely secondary to coronary artery disease. * Will continue to observe for now * * * Due to the worsening creatinine I would recommend holding off another day on the heart catheterization. This has been discussed with the patient and the team and they agree to proceed with the above plan. * Thank you for allowing me to participate in the care of your patient. Please don't hesitate to call if any issues arise.
[2020-07-14 08:55] LABS: Bedside Glucose 362 mg/dL (70-110)
[2020-07-14] MEDS: Aspirin 81 MG TAB.CHEW PO (09:15)
--- NOTE | 2020-07-14 09:27 | PCM.PN.HOSP ---
Patient Problems: Active and Suspected Problems (Last Reviewed 07/13/20 @ 08:[address] Moise Krishnamurthy, DO) Acute respiratory failure (Acute) Acute respiratory acidosis (Acute) Elevated troponin (Acute) Left bundle branch block (Acute) NSTEMI (non-ST elevated myocardial infarction) (Acute) Pulmonary edema (Acute) (HFpEF) heart failure with preserved ejection fraction (Acute) Acute respiratory failure with hypoxia and hypercapnia (Acute) Subjective: Breathing well. No chest pain at present. Weaned down to nasal cannula. Vitals/I&O's: Vital Signs Temp Pulse Resp BP Pulse Ox 36.7 C 57 L 18 126/56 H 98 07/14/20 04:00 07/14/20 07:20 07/14/20 07:20 07/14/20 07:00 07/14/20 07:20 Oxygen Flow Rate (L/min) 6 Oxygen Delivery Method Nasal Cannula Weight: 95.5 kg Body Mass Index (BMI) 36.7 Finger Stick Blood Glucose 241 Intake and Output for Last 24 Hours 07/12/20 07/13/20 07/14/20 23:59 23:59 23:59 Intake Total 660.3 / 660.3 120 / 120 Output Total 2935 / 3035 400 / 400 Balance -2274.7 / -2374.7 -280 / -280 General: Alert, No apparent distress HEENT: Atraumatic, Normocephalic Neck: No Nodes, Thyroid Normal Size and Texture Lungs: Clear to auscultation, Diminished Cardiovascular: Regular rate, Regular Rhythm, Normal S1, Normal S2, No murmurs Abdomen: Bowel Sounds Present, Soft, Non Tender, Non-Distended, No Hepato-splenomegaly Extremities: No Calf Tenderness, Edema Skin: No rashes, No breakdown Neurological: Muscle tone normal, Sensory exam intact to light touch and pain Psych/Mental Status: Normal Affect, Appropriate Microbiology Past 72 Hours 07/13/20 03:20 Mucosa - Nose SARS-CoV-2 Antigen (Rapid) - Final Laboratory Results 07/13/20 10:00: Troponin I 60.700 H* 07/13/20 10:37: Specimen Type ART, Sample Site L Radial, pH 7.28 L, Bicarbonate Actual 27.5 H, Total CO2 29, Base Excess 1, O2 Saturation 94 L, O2 % 75, ABG pCO2 58.4 H, ABG pO2 82, Walter Test Positive, Vent Mode NIV, POC PEEP 8, POC Pressure Suppt 18 07/13/20 11:29: POC Glucose > 500 H* 07/13/20 12:15: Troponin I 90.500 H* 07/13/20 14:07: POC Glucose > 500 H* 07/13/20 17:31: POC Glucose 411 H 07/14/20 04:45: WBC 15.5 H, RBC 4.44, Hgb 12.8, Hct 41.2, MCV 92.8, MCH 28.8, MCHC 31.1 L, RDW Std Deviation 52.6 H, RDW Coeff of [place] 15.4 H, Plt Count 199, MPV 12.1 H, Immature Gran % (Auto) 0.600, Neut % (Auto) 90.3 H, Lymph % (Auto) 5.9 L, [place] % (Auto) 3.1, Eos % (Auto) 0.0, Baso % (Auto) 0.1, Absolute Neuts (auto) 14.0 H, Absolute Lymphs (auto) 0.91, Nucleated RBC % 0 07/14/20 04:45: PT 26.6 H, INR 2.5 07/14/20 04:45: Sodium 137, Potassium 5.2 H, Chloride 103, Carbon Dioxide 27.0, Anion Gap 7, BUN 55 H, Creatinine 2.26 H, Estim Creat Clear Calc 18.29, Est GFR (MDRD) Af Amer 27 L, Est GFR (MDRD) Non-Af 22 L, BUN/Creatinine Ratio 24.3 H, Glucose 412 H, Calcium 8.5, Total Bilirubin 0.20, AST 157 H, ALT 63 H, Alkaline Phosphatase 78, Total Protein 6.6, Albumin 3.2, Globulin 3.4, Albumin/Globulin Ratio 0.9 07/14/20 04:45: Hemoglobin A1c 8.5 H 07/14/20 05:53: POC Glucose 362 H Current Medications Acetaminophen (Acetaminophen 325 Mg Tablet) 650 mg PO Q6H PRN PRN PRN Reason: Pain Score 1-10/Temp > 100.7 F Last Admin: 07/14/20 05:56 Dose: 650 mg Documented by: Albuterol Sulfate (Albuterol 2.5 Mg/3 Ml Vial.Neb.) 2.5 mg INHALATION Q2H PRN PRN PRN Reason: SHORTNESS OF BREATH Albuterol/Ipratropium (Ipratropium/Albuterol Sulfate 3 Ml Ampul.Neb) 3 ml INHALATION Q4HWA.RT [facility] Last Admin: 07/14/20 07:20 Dose: 3 ml Documented by: Aspirin (Aspirin 81 Mg Tab.Chew) 81 mg PO DAILY@0800 [facility] Atorvastatin Calcium (Atorvastatin Calcium 40 Mg Tablet) 40 mg PO QHS [facility] Last Admin: 07/13/20 20:10 Dose: 40 mg Documented by: Clonazepam (Clonazepam 1 Mg Tablet) 1 mg PO TID PRN PRN PRN Reason: ANXIETY Last Admin: 07/14/20 08:05 Dose: 1 mg Documented by: Dextrose (Dextrose 50%-Water 25 Gm/50 Ml Disp.Syrin) 0 gm IV X1 PRN; Protocol PRN Reason: Hypoglycemia Glucagon (Glucagon 1 Mg/Ml Syringe) 1 mg IM .X1 PRN PRN Reason: Hypoglycemia Sodium Chloride () 1,000 mls @ 15 mls/hr IV .Q48H [facility] Last Admin: 07/14/20 06:44 Dose: 15 mls/hr Documented by: Insulin Glargine (Insulin Glargine 100 Units/Ml Pen) 30 units SC DAILY [facility] Insulin Human Lispro (Insulin Lispro 100 Unit/Ml Insuln.Pen) 0 unit SC TIDAC [facility]; Protocol Last Admin: 07/14/20 07:03 Dose: Not Given Documented by: Methylprednisolone (Methylprednisolone 40 Mg/Ml Vial) 40 mg IV Q8 [facility] Last Admin: 07/14/20 05:56 Dose: 40 mg Documented by: Metoprolol Tartrate (Metoprolol Tartrate 25 Mg Tablet) 25 mg PO BID [facility] Last Admin: 07/14/20 05:55 Dose: 25 mg Documented by: Ondansetron HCl (Ondansetron 4 Mg/2 Ml Vial) 4 mg IV Q8H PRN PRN PRN Reason: NAUSEA/VOMITING Sodium Chloride (0.9% Saline Lock 10 Ml Syringe) 10 - 40 ml IV UD PRN PRN Reason: SALINE FLUSH Last Admin: 07/14/20 05:56 Dose: 10 ml Documented by: STROKE Vital Signs/Narrative: Vital Signs Pulse Resp BP BP Pulse Ox 07/14/20 07:20 57 L 18 98 07/14/20 07:00 64 18 126/56 H 97 07/14/20 06:00 63 17 127/67 H 97 07/14/20 05:55 64 134/62 H Medical Necessity - Tobacco Use Smoking Status: Former smoker Tobacco Use: Non-smoker Assessment/Plan All Active Problems (Last Reviewed 07/13/20 @ 08:[address] Moise Krishnamurthy, DO) Acute respiratory failure (Acute) Acute respiratory acidosis (Acute) Elevated troponin (Acute) Left bundle branch block (Acute) NSTEMI (non-ST elevated myocardial infarction) (Acute) Pulmonary edema (Acute) (HFpEF) heart failure with preserved ejection fraction (Acute) Acute respiratory failure with hypoxia and hypercapnia (Acute) 1. Acute hypoxic and hypercapnic respiratory failure Improved, now down to nasal canula. Likely multifactorial due to CHF and the patient's known history of COPD Plan Wean oxygen as tolerated. Patient will be continue to be monitored in the ICU in case she were to decline. 2. Acute heart failure with reduced ejection fraction EF 65% from echocardiogram on 04/03/2019, now down to 25%. suspect flash pulmonary edema Suspect ischemic cardiomyopathy Plan Supportive mgmt at this time Furosemide and lisinopril held given KIT 3. Non-ST elevation myocardial infarction New low bundle-branch block, least from 2019 Troponins peaked at 90.5 Plan Patient already anticoagulated as her INR is 2.5. We will hold off on additional warfarin at this time given anticipated cardiac catheterization on or Hold off on beta-urszula given the acute CHF but also with patient's known history of severe large airway obstructive disease DW Dr Leon, given KIT, hold on cardiac cath for now. 4. KIT suspect contrast primarily but also diuresis and lisinopril plan DC furosemide and lisinopril no heart cath for now check Urine studies and renal US consider nephro consult if worse. 5. possibe acute COPD I doubt an acute exacerbation at this time but difficult to tease out definitively Plan Bronchodilators IV methylprednisolone for now 6. History of VTE Currently anticoagulated his INR is 2.3. Warfarin currently being held anticipation of a cardiac catheterization on the . 7. Diabetes mellitus type 2 Uncontrolled, likley exacerbated by steroids and physiologic stressors Last A1c was 8.5 from January 28 Plan Sliding scale insulin Glargine and add prandial 8. VTE prophylaxis: Not indicated this patient is already anticoagulated 9. Advanced care planning: rediscussed today. DNRCCA, with intubation, if necessary. Inpatient E&M: [id number] [facility] L[facility]
--- NOTE | 2020-07-14 10:45 | NURSING ---
RN CM Assessment Introduced role of RN CM to patient. This ad writer and geriatric social worker Deena at bedside- refer to her note for further documentation.? Patient is alert, oriented and able?to participate in RN CM Assessment. ?Care providers, pharmacy, and demographics verified. Admit Dx: Respiratory failure, NSTEMI Re-Admit: No Barriers/Issues: Lives with whom is currently terminal and cannot care for himself, was recently discharged from [facility] x[facility] ago. Per patient is having a difficult time assisting with needs/demands and resulting in her own health decline/issues. Has three children (dtr Caitlin, dtr Leticia and son Mario that live close), other oldest son lives in [place] but further away and has not seen x1yr since Covid. Reza lives with them but works at [employer]. Issue: Lack of support to assist with both patient and daily care needs. Is active with [facility] and has current Home Health Aide from [facility] 1 day(Sunday)/week to assist with house hold cleaning. PCP: Rufus Blanco Specialists: Grecia Calderon, Thong Scott [facility] Insurance: [employer] [facility] Rx Benefit:?Yes LNOK: Children- See above note and refer to gospel worker Krystal note as she will complete HPOA form with patient. LW/HPOA: Believes she has some papers completed from the past- aware if brought in will place a copy on file. Patient states that her is currently confused. States wants her children to be the HPOA for her. Living Arrangements:? Lives with her and reza in a gnd level apartment. Has approx 13-14 stairs inside her apartment to go up to her bedroom and bathroom. ADL?s: Patient ambulates independently in her home and uses a rollator outside of home for longer distances. Patient has been independent with her ADLs, except requires assistance with transportation from her dtrs, Has an aide to assist with house chores. Patient gives herseld sponge baths has her tub is high to get into. Transportation: Dtrs Caitlin and Leticia DME: Rollator, WW, Shower chair, Glucometer, Nebulizer. Patient states needs a BSC. HHC: Current Aide with [facility] on Sunday SNF: None, Does not want [place]. Goal: Patient is agreeable to go to SNF- Per PT eval here recommends additional therapy. Patient currently unable to care for self or . Patient states that [facility] is already working on LTP for [facility] placement. Krystal- geriatric social worker to provide In network SNF list. Aware RNCM will continue to follow for any additional needs. DC PLAN: SNF. NSTEMI- F/u for any anticoagulation need for [facility]. GOMEZ Mchugh
--- NOTE | 2020-07-14 12:48 | CASEMGMT ---
Social Work SW met with pt in room and introduced self and role of SW. Pt tearful throughout conversation. Pt stating her was released from [facility] about a week ago to home. It was recommended he go to inpatient hospice or a SNF but he adamantly refused and returned home with pt to care for him. Pt stating her has fallen and is demanding and more care than she can provide. Therapy has seen pt and are recommending short term SNF placement for rehab. SW spoke with pt about fci placement and pt is agreeable, although tearful and feeling guilty about at home. Much emotional support provided to pt and pt openly spoke about difficult relationship with her spouse over the years. Pt does have 5 children, 4 of which she states she is close with. Pt states they are checking in on pt but not caring for him. Pt has a grandson Ronnie who lives with pt and spouse however he works and is not able or interested in caring for pt spouse at home. Per pt, her family would be in agreement with her going to SNF. SW provided a list of SNF providers including quality and resource use data and consistent with the patient's preferred geographic region, medical needs and insurance network. Pt reviewed list and preferred provider is [facility]. [facility]. [facility]. Referral made to [facility] and they do have beds available. Referral faxed and will await return call with determination of acceptance. SW spoke with pt regarding HCPOA and pt stating she would want her son Mario to make medical decisions. SW assisted pt in completing HCPOA and Living Will. Originals given to pt and copies placed on pt chart. With pt permission, phone call placed to Mario and updated on discharge plan. Mario states he will support pt decisions for discharge and is agreeable to be HCPOA. LINH placed call to pt Doorkeeper at [facility] Carolin Rosa Maria and left requesting return call to discuss pt discharge plan. LINH made report to APS regarding pt Waldemar Guzman. Pt aware and agreeable to this referral being placed. Pt appreciative for emotional support provided and assistance with discharge planning. SW will continue to follow. Plan: [facility], pending acceptance and precert. SOFIA Berrios
[2020-07-14] MEDS: Insulin Lispro 100 UNIT/ML INSULN.PEN 6 UNIT SC ×2 (12:58→17:13)
[2020-07-14] MEDS: Insulin Lispro 100 UNIT/ML INSULN.PEN SC ×2 (12:59→17:13)
--- NOTE | 2020-07-14 14:26 | CASEMGMT ---
Social Work Received call from Ashley Coe CM. updated on pt discharge plan and APS referral for pt spouse who is also a client of SOFIA Albarado
[2020-07-14 14:56] LABS: Bedside Glucose > 500 mg/dL (70-110)
[2020-07-14 15:30] LABS: Mucous, Urine 0 SEEN /hpf (<or=2+); Squamous Epithelial Cells - UA 0 SEEN /hpf (5-10)
[2020-07-14 15:35] LABS: Color, Urine Yellow (Yellow); Glucose, Dipstick 250 mg/dl (Normal); Ketone-Dipstick Negative (Negative); Leukocyte Esterase-Dipstick 25 /ul (Negative); Nitrite-Dipstick Negative (Negative); Occult Blood-Urine 150 /ul (Negative); Protein-Dipstick 15 mg/dl (Negative); Urine Bilirubin Dipstick Negative (Negative); Urine Clarity Clear (Clear); Urine Urobilinogen Normal (Normal)
[2020-07-14 15:43] LABS: Urea Nitrogen, Urine 534 mg/dL (NO RANGE EST.)
[2020-07-14 15:47] LABS: Red Blood Cells-Urine 5-10 SEEN /hpf (0-5)
[2020-07-14 15:48] LABS: Bacteria 1+ /hpf (None Seen); White Blood Cells 0-5 SEEN /hpf (0-5)
[2020-07-14 17:21] LABS: Bedside Glucose 451 mg/dL (70-110)
[2020-07-14] MEDS: TICAGRELOR 90 MG TABLET 180 MG PO (18:31)
[2020-07-14] MEDS: Atorvastatin Calcium 40 MG Tablet PO (21:52)
--- NOTE | 2020-07-14 22:08 | PCM.PN.BLA ---
Progress Note Patient with blood glucose in the 500s. Will give insulin lispro 10 units subcutaneous now. Will stop prandial and Correction Scale Insulin. Accu-Chek Every 4 Hours with High Medium Correction Scale Insulin Ordered. Of Note Patient Will Be N.P.O. after Midnight for Procedure. STROKE Vital Signs/Narrative: Vital Signs Temp Pulse Resp BP BP Pulse Ox 07/14/20 22:00 67 107/67 07/14/20 21:00 98.0 F 57 L 21 H 100/46 L 92 07/14/20 20:00 98.2 F 61 24 H 127/60 H 92 07/14/20 19:02 64 20 H 07/14/20 19:00 98.2 F 60 16 121/61 H 94
[2020-07-14 22:15] LABS: Bedside Glucose > 500 mg/dL (70-110)
[2020-07-14] MEDS: Insulin Lispro 100 UNIT/ML INSULN.PEN 10 UNIT SC (22:16)
[2020-07-15] VITALS (23 sets, daily range): BP systolic 108–144; BP diastolic 47–69; PULSE 51–90; RESP 13–24; TEMP 36.4–36.7; O2SAT 90–95
[2020-07-15] MEDS: Insulin Lispro 100 UNIT/ML INSULN.PEN SC ×5 (01:45→21:24)
[2020-07-15 01:51] LABS: Bedside Glucose 404 mg/dL (70-110)
[2020-07-15 04:46] LABS: Absolute Lymphocyte Count 0.66 X10^3/uL (0.83-4.51); Absolute Neutrophil Count 11.7 X10^3/uL (2.0-7.7); Basophil# 0.01 X10^3/uL; Basophil% 0.1 % (0-1); Hematocrit 38.5 % (37-47); Hemoglobin 12.1 g/dL (12.0-15.0); Lymphocyte # 0.66 X10^3/ul (4.0); Lymphocyte % 5.1 % (19-41); Mean Corp Hgb Conc 31.4 g/dL (32-36); Mean Corpuscular Hgb 28.5 pg (27.0-32.0); Mean Corpuscular Volume 90.8 fL (81-99); Mean Platelet Vol. 12.1 fl (6.2-12.0); Monocyte# 0.44 X10^3/uL; Monocyte% 3.4 % (0-10); NRBC Flagged by Analyzer 0 % (0-5); Neutrophil # 11.74 X10^3/uL (2.7-7.7); Neutrophil % 90.9 % (47-70); Platelet Count 198 K/mm3 (150-450); RBC Distribution Width CV 15.2 % (11.6-14.6); RBC Distribution Width SD 50.4 fl (35.1-43.9); Red Blood Count 4.24 M/mm3 (4.2-5.4); White Blood Count 12.9 K/mm3 (4.4-11.0)
[2020-07-15 05:00] LABS: International Normalized Ratio 2.8
[2020-07-15 05:09] LABS: Anion Gap 7 (5-15); BUN 82 mg/dL (7-18); BUN/Creat Ratio 30.4 RATIO (10-20); Calcium,Total 8.2 mg/dL (8.5-10.1); Chloride 101 mmol/L (98-107); EST Glomerular Filtration Rate 18 mL/min (>60); Est Glom Filt Rate - Afr Amer 22 mL/min (>60); Estimated Creatinine Clearance 15.31 ml/min; Glucose 356 mg/dL (74-106); Sodium Level 134 mmol/L (136-145)
[2020-07-15] MEDS: Metoprolol Tartrate 25 MG Tablet PO ×2 (05:59→21:22)
[2020-07-15] MEDS: Aspirin 81 MG TAB.CHEW PO (06:00)
[2020-07-15] MEDS: TICAGRELOR 90 MG TABLET PO ×2 (06:00→21:22)
[2020-07-15] MEDS: clonazePAM 1 MG Tablet PO (06:10)
[2020-07-15] MEDS: Ipratropium/Albuterol Sulfate 3 ML AMPUL.NEB INHALATION ×4 (06:57→18:51)
[2020-07-15 07:11] LABS: Bedside Glucose 321 mg/dL (70-110)
--- NOTE | 2020-07-15 09:55 | PN_ITS ---
Patient Problems: Active and Suspected Problems (Last Reviewed 07/13/20 @ 08:[address] Moise Krishnamurthy, DO) Acute respiratory failure (Acute) Acute respiratory acidosis (Acute) Elevated troponin (Acute) Left bundle branch block (Acute) NSTEMI (non-ST elevated myocardial infarction) (Acute) Pulmonary edema (Acute) (HFpEF) heart failure with preserved ejection fraction (Acute) Acute respiratory failure with hypoxia and hypercapnia (Acute) Subjective: Breathing well. Expresses concern over her and who will take care of him. Also upset about her grandson who is in heroin addict. Vitals/I&O's: Vital Signs Temp Pulse Resp BP Pulse Ox 36.6 C 56 L 13 130/68 H 93 07/15/20 08:00 07/15/20 09:00 07/15/20 09:00 07/15/20 09:00 07/15/20 09:00 Oxygen Flow Rate (L/min) 1 Oxygen Delivery Method Nasal Cannula Weight: 96.9 kg Body Mass Index (BMI) 36.7 Finger Stick Blood Glucose 241 Intake and Output for Last 24 Hours 07/13/20 07/14/20 07/15/20 23:59 23:59 23:59 Intake Total 660.3 / 660.3 830 / 830 120 / 120 Output Total 2935 / 3035 760 / 960 675 / 675 Balance -2274.7 / -2374.7 70 / -130 -555 / -555 General: Alert, Cooperative, No apparent distress HEENT: Atraumatic, Normocephalic Oral: Moist Mucosa, No Gingival or Mucosal Lesions/ Ulcerations Neck: No Nodes, Thyroid Normal Size and Texture Lungs: Clear to auscultation, Normal air movement, No rhonchi, No wheeze, No rales Cardiovascular: Regular rate, Regular Rhythm, Normal S1, Normal S2 Abdomen: Bowel Sounds Present, Soft, Non Tender, Non-Distended Extremities: No edema, No Calf Tenderness Skin: No rashes, No breakdown Psych/Mental Status: Normal Affect, Appropriate Microbiology Past 72 Hours 07/13/20 03:20 Mucosa - Nose SARS-CoV-2 Antigen (Rapid) - Final Laboratory Results 07/14/20 12:57: POC Glucose > 500 H* 07/14/20 15:15: Urine Creatinine 161.00, Urine Urea Nitrogen 534 07/14/20 15:15: Urine Color Yellow, Urine Clarity Clear, Urine pH 5.0, Ur Specific [place] 1.020, Urine Protein 15 H, Urine Glucose (UA) 250 H, Urine Ketones Negative, Urine Occult Blood 150 H, Urine Nitrite Negative, Urine Bilirubin Negative, Urine Urobilinogen Normal, Ur Leukocyte Esterase 25 H, Urine RBC 5-10 SEEN, Urine WBC 0-5 SEEN, Ur Squamous Epith Cells 0 SEEN, Urine Bacteria 1+, Urine Mucus 0 SEEN 07/14/20 17:12: POC Glucose 451 H* 07/14/20 21:55: POC Glucose > 500 H* 07/15/20 01:44: POC Glucose 404 H 07/15/20 04:30: WBC 12.9 H, RBC 4.24, Hgb 12.1, Hct 38.5, MCV 90.8, MCH 28.5, MCHC 31.4 L, RDW Std Deviation 50.4 H, RDW Coeff of [place] 15.2 H, Plt Count 198, MPV 12.1 H, Immature Gran % (Auto) 0.500, Neut % (Auto) 90.9 H, Lymph % (Auto) 5.1 L, [place] % (Auto) 3.4, Eos % (Auto) 0.0, Baso % (Auto) 0.1, Absolute Neuts (auto) 11.7 H, Absolute Lymphs (auto) 0.66 L, Nucleated RBC % 0 07/15/20 04:30: Sodium 134 L, Potassium 5.0, Chloride 101, Carbon Dioxide 26.0, Anion Gap 7, BUN 82 H, Creatinine 2.70 H, Estim Creat Clear Calc 15.31, Est GFR (MDRD) Af Amer 22 L, Est GFR (MDRD) Non-Af 18 L, BUN/Creatinine Ratio 30.4 H, Glucose 356 H, Calcium 8.2 L 07/15/20 04:30: PT 29.0 H, INR 2.8 07/15/20 05:56: POC Glucose 321 H Current Medications Acetaminophen (Acetaminophen 325 Mg Tablet) 650 mg PO Q6H PRN PRN PRN Reason: Pain Score 1-10/Temp > 100.7 F Last Admin: 07/14/20 15:08 Dose: 650 mg Documented by: Albuterol Sulfate (Albuterol 2.5 Mg/3 Ml Vial.Neb.) 2.5 mg INHALATION Q2H PRN PRN PRN Reason: SHORTNESS OF BREATH Albuterol/Ipratropium (Ipratropium/Albuterol Sulfate 3 Ml Ampul.Neb) 3 ml INHALATION Q4HWA.RT [facility] Last Admin: 07/15/20 06:57 Dose: 3 ml Documented by: Aspirin (Aspirin 81 Mg Tab.Chew) 81 mg PO DAILY@0800 [facility] Last Admin: 07/15/20 06:00 Dose: 81 mg Documented by: Atorvastatin Calcium (Atorvastatin Calcium 40 Mg Tablet) 40 mg PO QHS [facility] Last Admin: 07/14/20 21:52 Dose: 40 mg Documented by: Clonazepam (Clonazepam 1 Mg Tablet) 1 mg PO TID PRN PRN PRN Reason: ANXIETY Last Admin: 07/15/20 06:10 Dose: 1 mg Documented by: Dextrose (Dextrose 50%-Water 25 Gm/50 Ml Disp.Syrin) 0 gm IV X1 PRN; Protocol PRN Reason: Hypoglycemia Glucagon (Glucagon 1 Mg/Ml Syringe) 1 mg IM .X1 PRN PRN Reason: Hypoglycemia Sodium Chloride () 1,000 mls @ 15 mls/hr IV .Q48H [facility] Last Admin: 07/14/20 06:44 Dose: 15 mls/hr Documented by: Insulin Glargine (Insulin Glargine 100 Units/Ml Pen) 30 units SC BID [facility] Insulin Human Lispro (Insulin Lispro 100 Unit/Ml Insuln.Pen) 0 unit SC Q4 [facility]; Protocol Last Admin: 07/15/20 05:58 Dose: 6 u Documented by: Methylprednisolone (Methylprednisolone 40 Mg/Ml Vial) 40 mg IV Q12 [facility] Stop: 07/15/20 20:01 Metoprolol Tartrate (Metoprolol Tartrate 25 Mg Tablet) 25 mg PO BID [facility] Last Admin: 07/15/20 05:59 Dose: 25 mg Documented by: Ondansetron HCl (Ondansetron 4 Mg/2 Ml Vial) 4 mg IV Q8H PRN PRN PRN Reason: NAUSEA/VOMITING Prednisone (Prednisone 20 Mg Tablet) 40 mg PO DAILY@0800 [facility] Stop: 07/20/20 08:01 Sodium Chloride (0.9% Saline Lock 10 Ml Syringe) 10 - 40 ml IV UD PRN PRN Reason: SALINE FLUSH Last Admin: 07/14/20 14:48 Dose: 10 ml Documented by: Ticagrelor (Ticagrelor 90 Mg Tablet) 90 mg PO BID [facility] Last Admin: 07/15/20 06:00 Dose: 90 mg Documented by: STROKE Vital Signs/Narrative: Vital Signs Temp Pulse Resp BP BP Pulse Ox 07/15/20 09:00 56 L 13 130/68 H 93 07/15/20 08:00 36.6 C 55 L 24 H 130/67 H 93 07/15/20 07:00 54 L 21 H 143/68 H 92 07/15/20 06:00 36.7 C 58 L 20 H 139/65 H 93 07/15/20 05:59 58 L 139/65 H Medical Necessity - Tobacco Use Smoking Status: Former smoker Tobacco Use: Non-smoker Assessment/Plan All Active Problems (Last Reviewed 07/13/20 @ 08:[address] Moise Krishnamurthy, DO) Acute respiratory failure (Acute) Acute respiratory acidosis (Acute) Elevated troponin (Acute) Left bundle branch block (Acute) NSTEMI (non-ST elevated myocardial infarction) (Acute) Pulmonary edema (Acute) (HFpEF) heart failure with preserved ejection fraction (Acute) Acute respiratory failure with hypoxia and hypercapnia (Acute) 1. Acute hypoxic and hypercapnic respiratory failure Improved, now down to nasal canula 1liter. Likely multifactorial due to CHF and the patient's known history of COPD Plan * Wean oxygen as tolerated. * Patient will be continue to be monitored in the ICU in case she were to decline. 2. Acute heart failure with reduced ejection fraction EF 65% from echocardiogram on 04/03/2019, now down to 25%. suspect flash pulmonary edema Suspect ischemic cardiomyopathy Plan * Supportive mgmt at this time * Furosemide and lisinopril held given KIT 3. Non-ST elevation myocardial infarction New low bundle-branch block, least from 2019 Troponins peaked at 90.5 Plan * Patient already anticoagulated as her INR is 2.5. We will hold off on additional warfarin at this time given anticipated cardiac catheterization on or * Hold off on beta-urszula given the acute CHF but also with patient's known history of severe large airway obstructive disease * 07/14: NANCY Leon, given KIT, hold on cardiac cath for now. * ticagrelor. loaded on . 4. KIT suspect contrast primarily but also diuresis and lisinopril worse again FEUrea 10.9%, consistent with prerenal plan * DC furosemide and lisinopril * no heart cath for now * nephrology consult 5. possibe acute COPD I doubt an acute exacerbation at this time but difficult to tease out definitively Plan * Bronchodilators * IV methylprednisolone for now, wean to q12 today, then prednisone starting 07/16 6. History of VTE Currently anticoagulated his INR is 2.8. Warfarin currently being held anticipation of a cardiac catheterization on the . INR still trending up despite not receiving warfarin since admission. No evidence of bleeding. continue to monitor. 7. Diabetes mellitus type 2 Uncontrolled, likley exacerbated by steroids and physiologic stressors Last A1c was 8.5 from January 28 Plan * Sliding scale insulin * Glargine and add prandial 8. VTE prophylaxis: Not indicated this patient is already anticoagulated 9. Advanced care planning: rediscussed today. DNRCCA, with intubation, if necessary. Greater than 35 minutes of which greater than for percent of time was discussion with the patient and also counseling her in regards to the myocardial infarction and that it could be a thrombotic occurrence or possibility that it could be process such as Takotsubo. Also expressed concern for the patient's home situation and did discuss with case management regards to what additional services could be provided to the patient's or referred. Inpatient E&M: [id number] [facility] L3
[2020-07-15 10:16] LABS: Bedside Glucose 285 mg/dL (70-110)
--- NOTE | 2020-07-15 11:14 | CASEMGMT ---
[facility] Palliative Screening Tool criteria met. ok'd order. Referral faxed and voicemail left on Palliative phone line with referral information as well.
--- NOTE | 2020-07-15 11:19 | CASEMGMT ---
Addendum entered by Deena Gonzalez 07/15/20 12:15: Social Work Return call from Carolin at [facility]. She states she attempted to contact pt with no answer and unable to leave voicemail. She also contacted PCP to inform of situation and request home care. SW informed Carolin that pt is requesting to speak with her. Carolin agreeable to call pt. Return call from [facility] and they are able to accept pt. Pt notified. Precert will need to be obtained prior to discharge. SOFIA Berrios Original Note: Social Work SW spent time with pt offering emotional support. Pt willing to talk openly with SW and share feelings and concerns about and family. Pt tearful and anxious throughout conversation. Much support provided. SW explained that waiting to hear back from [facility] about acceptance. Explained again that APS and 's CM at [facility] were updated yesterday about pt . Pt requesting visit from Ux Engineer. Referral made and Ux Engineer Ray to see pt today. VM left with MADHU Coe at [facility]. Referral made to [facility]. Lexy at [facility] states she can mail information to patient's but feels APS will take the lead in this situation. SW will remain available for support and discharge planning. SOFIA Berrios
--- NOTE | 2020-07-15 12:26 | CON.PCM_ITS ---
Consultation - Renal 07/15/20 PCP/ Referring MD: Requesting physician: Moise Krishnamurthy DO Primary care physician: Dr. Rufus Blanco DO Reason for Consultation:: KIT - History of Present Illness History of Present Illness: The patient is a 75 year old F with CKD stage 3 baseline creatinine 1.1-1.3 presented to [facility] on 07/13/20 for substernal chest pain with radiation to neck and back since Sunday. Troponin was elevated at 90 with NSTEMI and was admitted to ICU on nitro, BBlockers, lasix in ED. She had hypoxia with shortness of breath. CXR showed ground glass opacities. COVID negative. She has COPD with history of tobacco use. CTA performed on 07/13 was negative for PE. Creatinine increased to 2.27 then 2.7 today. Urine cr 161. She is nonoliguric. Denies nausea, vomiting. No edema. Oxygen level stable on 1L NC. She has a history of diabetes, hypertension. Renal US no hydronephrosis with bilateral renal cysts. She complains of increased stress at home caring for her spouse who is dying but refuses hospice. - Allergies Allergies: Allergies Penicillins Allergy (Verified 07/13/20 02:49) Angioedema rosiglitazone maleate [From Avandia] Allergy (Verified 07/13/20 02:49) hyperglycemia cephalexin [From Keflex] Adverse Reaction (Verified 07/13/20 02:49) Diarrhea doxycycline Adverse Reaction (Verified 07/13/20 02:49) Diarrhea prednisone Adverse Reaction (Verified 07/13/20 02:49) hyperglycemia HYPERGLYCEMIA Sulfa (Sulfonamide Antibiotics) Adverse Reaction (Verified 07/13/20 02:49) Unknown pt is unsure - Current Medications Current Medications: Current Medications Acetaminophen (Acetaminophen 325 Mg Tablet) 650 mg PO Q6H PRN PRN PRN Reason: Pain Score 1-10/Temp > 100.7 F Last Admin: 07/14/20 15:08 Dose: 650 mg Documented by: Albuterol Sulfate (Albuterol 2.5 Mg/3 Ml Vial.Neb.) 2.5 mg INHALATION Q2H PRN PRN PRN Reason: SHORTNESS OF BREATH Albuterol/Ipratropium (Ipratropium/Albuterol Sulfate 3 Ml Ampul.Neb) 3 ml INHALATION Q4HWA.RT THOMAS Last Admin: 07/15/20 11:21 Dose: 3 ml Documented by: Aspirin (Aspirin 81 Mg Tab.Chew) 81 mg PO DAILY@0800 [facility] Last Admin: 07/15/20 06:00 Dose: 81 mg Documented by: Atorvastatin Calcium (Atorvastatin Calcium 40 Mg Tablet) 40 mg PO QHS [facility] Last Admin: 07/14/20 21:52 Dose: 40 mg Documented by: Clonazepam (Clonazepam 1 Mg Tablet) 1 mg PO TID PRN PRN PRN Reason: ANXIETY Last Admin: 07/15/20 06:10 Dose: 1 mg Documented by: Dextrose (Dextrose 50%-Water 25 Gm/50 Ml Disp.Syrin) 0 gm IV X1 PRN; Protocol PRN Reason: Hypoglycemia Glucagon (Glucagon 1 Mg/Ml Syringe) 1 mg IM .X1 PRN PRN Reason: Hypoglycemia Sodium Chloride () 1,000 mls @ 15 mls/hr IV .Q48H [facility] Last Infusion: 07/15/20 10:34 Dose: Infused Documented by: Insulin Glargine (Insulin Glargine 100 Units/Ml Pen) 30 units SC BID [facility] Last Admin: 07/15/20 10:34 Dose: 30 u Documented by: Insulin Human Lispro (Insulin Lispro 100 Unit/Ml Insuln.Pen) 0 unit SC ACHS [facility]; Protocol Methylprednisolone (Methylprednisolone 40 Mg/Ml Vial) 40 mg IV Q12 [facility] Stop: 07/15/20 20:01 Metoprolol Tartrate (Metoprolol Tartrate 25 Mg Tablet) 25 mg PO BID [facility] Last Admin: 07/15/20 05:59 Dose: 25 mg Documented by: Ondansetron HCl (Ondansetron 4 Mg/2 Ml Vial) 4 mg IV Q8H PRN PRN PRN Reason: NAUSEA/VOMITING Prednisone (Prednisone 20 Mg Tablet) 40 mg PO DAILY@0800 [facility] Stop: 07/20/20 08:01 Sodium Chloride (0.9% Saline Lock 10 Ml Syringe) 10 - 40 ml IV UD PRN PRN Reason: SALINE FLUSH Last Admin: 07/14/20 14:48 Dose: 10 ml Documented by: Ticagrelor (Ticagrelor 90 Mg Tablet) 90 mg PO BID [facility] Last Admin: 07/15/20 06:00 Dose: 90 mg Documented by: - Past Medical History Past Medical History (Chronic Problems): Chronic Problems (Last Reviewed 07/13/20 @ 08:[address] Moise Krishnamurthy DO) COPD exacerbation (Chronic) Obesity (Chronic) Obesity (BMI 30-39.9) (Chronic) COPD exacerbation (Chronic) Allergic rhinitis (Chronic) Lung nodule (Chronic) 5.5 mm LLL Stage 2 moderate COPD by GOLD classification (Chronic) Menieres disease (Chronic) Gastroesophageal reflux disease with hiatal hernia (Chronic) Essential hypertension (Chronic) Dyslipidemia (Chronic) Diabetes mellitus, type 2 (Chronic) DVT of lower extremity (deep venous thrombosis) (Chronic) on coumadin Obesity (BMI 30-39.9) (Chronic) Depression (Chronic) Chronic renal failure, stage 3 (moderate) (Chronic) Anxiety disorder (Chronic) - Past Surgical History Surgical History: cholecystectomy, - - - Social History Smoking Status: Former smoker Drugs: None - Family History Maternal Family History: Family History (Last Reviewed 07/13/20 @ 08:[address] Moise Krishnamurthy DO) Sister Lupus Arthritis Brother Colon cancer Cancer Arthritis Father Diabetes Heart disease Mother Hypertension History Items: No pertinent history Paternal Family History: Family History (Last Reviewed 07/13/20 @ 08:[address] Moise Krishnamurthy DO) Sister Lupus Arthritis Brother Colon cancer Cancer Arthritis Father Diabetes Heart disease Mother Hypertension History Items: No pertinent history Review of Systems Constitutional: Reports: Weakness, Fatigue. Denies: Anorexia, Chills, Fever HEENT: Denies: Head Aches Cardiovascular: Reports: Chest Pain, - - neck pain, back pain. Denies: Edema, Syncope Respiratory: Reports: Shortness of Breath, - - COPD, remote smoker. Denies: Cough Gastrointestinal: Denies: Abdominal Pain, Diarrhea, Nausea, Vomiting Genitourinary: Denies: Dysuria Musculoskeletal: Reports: Arm Pain, Back Pain, Neck Pain Skin: Denies: Rash Neurological: Denies: Balance problems, Tremor Psychiatric: Reports: Anxiety, Depression Hematologic/ Lymphatic: Reports: Hx of blood clot Patient Problems: Active and Suspected Problems (Last Reviewed 07/13/20 @ 08:[address] Moise Krishnamurthy DO) Acute respiratory failure (Acute) Acute respiratory acidosis (Acute) Elevated troponin (Acute) Left bundle branch block (Acute) NSTEMI (non-ST elevated myocardial infarction) (Acute) Pulmonary edema (Acute) (HFpEF) heart failure with preserved ejection fraction (Acute) Acute respiratory failure with hypoxia and hypercapnia (Acute) Debility (Acute) - Physical Exam Vitals/I&O's: Vital Signs Temp Pulse Resp BP Pulse Ox 97.9 F 58 L 14 141/69 H 94 07/15/20 08:00 07/15/20 11:00 07/15/20 11:00 07/15/20 10:00 07/15/20 11:00 Oxygen Flow Rate (L/min) 1 Oxygen Delivery Method Nasal Cannula Weight: 96.9 kg Body Mass Index (BMI) 36.7 Finger Stick Blood Glucose 241 Intake and Output for Last 24 Hours 07/13/20 07/14/20 07/15/20 23:59 23:59 23:59 Intake Total 660.3 / 660.3 830 / 830 537.5 / 537.5 Output Total 2935 / 3035 760 / 960 675 / 675 Balance -2274.7 / -2374.7 70 / -130 -137.5 / -137.5 General: Alert, Oriented x3, Cooperative, No apparent distress HEENT: PERRLA, EOMI Oral: Moist Mucosa Neck: Supple, No JVD Lungs: Clear to auscultation, Diminished Cardiovascular: Normal S2, - Abdomen: Bowel Sounds Present, Soft, Non Tender, Non-Distended Extremities: No edema Skin: No rashes Musculoskeletal: No Muscle Wasting Lymphatic: No Cervical, Supraclavicular, or Inguinal Adenopathy Neurological: Cranial nerves II-XII grossly intact, - - no tremor Psych/Mental Status: Normal Affect, Appropriate, Alert and oriented to time, place, person, mood and affect Microbiology Past 72 Hours 07/13/20 03:20 Mucosa - Nose SARS-CoV-2 Antigen (Rapid) - Final negative Laboratory Results 07/14/20 12:57: POC Glucose > 500 H* 07/14/20 15:15: Urine Creatinine 161.00, Urine Urea Nitrogen 534 07/14/20 15:15: Urine Color Yellow, Urine Clarity Clear, Urine pH 5.0, Ur Specific Anderson 1.020, Urine Protein 15 H, Urine Glucose (UA) 250 H, Urine Ketones Negative, Urine Occult Blood 150 H, Urine Nitrite Negative, Urine Bilirubin Negative, Urine Urobilinogen Normal, Ur Leukocyte Esterase 25 H, Urine RBC 5-10 SEEN, Urine WBC 0-5 SEEN, Ur Squamous Epith Cells 0 SEEN, Urine Bacteria 1+, Urine Mucus 0 SEEN 07/14/20 17:12: POC Glucose 451 H* 07/14/20 21:55: POC Glucose > 500 H* 07/15/20 01:44: POC Glucose 404 H 07/15/20 04:30: WBC 12.9 H, RBC 4.24, Hgb 12.1, Hct 38.5, MCV 90.8, MCH 28.5, MCHC 31.4 L, RDW Std Deviation 50.4 H, RDW Coeff of Alton 15.2 H, Plt Count 198, MPV 12.1 H, Immature Gran % (Auto) 0.500, Neut % (Auto) 90.9 H, Lymph % (Auto) 5.1 L, Jay % (Auto) 3.4, Eos % (Auto) 0.0, Baso % (Auto) 0.1, Absolute Neuts (auto) 11.7 H, Absolute Lymphs (auto) 0.66 L, Nucleated RBC % 0 07/15/20 04:30: Sodium 134 L, Potassium 5.0, Chloride 101, Carbon Dioxide 26.0, Anion Gap 7, BUN 82 H, Creatinine 2.70 H, Estim Creat Clear Calc 15.31, Est GFR (MDRD) Af Amer 22 L, Est GFR (MDRD) Non-Af 18 L, BUN/Creatinine Ratio 30.4 H, Glucose 356 H, Calcium 8.2 L 07/15/20 04:30: PT 29.0 H, INR 2.8 07/15/20 05:56: POC Glucose 321 H 07/15/20 10:08: POC Glucose 285 H Clinical Impression(s) from Imaging Studies Chest X-Ray 07/13/20 02:57 IMPRESSION: Ill-defined subpleural groundglass opacities are seen more prominent in the lung bases , may represent atypical pneumonia or viral pneumonia (COVID-19 ?). Electronically Signed: Bekah Alonso MD at 4:14 EDT Tel , Service support , Chest CTA 07/13/20 04:18 IMPRESSION: Congestive heart failure. No demonstrated pulmonary embolism or arterial dissection. Electronically Signed: Bekah Alonso MD at 5:44 EDT Tel , Service support , Renal Ultrasound 07/14/20 07:06 IMPRESSION: Small bilateral renal cysts larger on the right side. No acute abnormalities. Electronically Signed: Ketan Price MD at 12:59 EDT , Service support , Current Medications Acetaminophen (Acetaminophen 325 Mg Tablet) 650 mg PO Q6H PRN PRN PRN Reason: Pain Score 1-10/Temp > 100.7 F Last Admin: 07/14/20 15:08 Dose: 650 mg Documented by: Albuterol Sulfate (Albuterol 2.5 Mg/3 Ml Vial.Neb.) 2.5 mg INHALATION Q2H PRN PRN PRN Reason: SHORTNESS OF BREATH Albuterol/Ipratropium (Ipratropium/Albuterol Sulfate 3 Ml Ampul.Neb) 3 ml INHALATION Q4HWA.RT [facility] Last Admin: 07/15/20 11:21 Dose: 3 ml Documented by: Aspirin (Aspirin 81 Mg Tab.Chew) 81 mg PO DAILY@0800 [facility] Last Admin: 07/15/20 06:00 Dose: 81 mg Documented by: Atorvastatin Calcium (Atorvastatin Calcium 40 Mg Tablet) 40 mg PO QHS [facility] Last Admin: 07/14/20 21:52 Dose: 40 mg Documented by: Clonazepam (Clonazepam 1 Mg Tablet) 1 mg PO TID PRN PRN PRN Reason: ANXIETY Last Admin: 07/15/20 06:10 Dose: 1 mg Documented by: Dextrose (Dextrose 50%-Water 25 Gm/50 Ml Disp.Syrin) 0 gm IV X1 PRN; Protocol PRN Reason: Hypoglycemia Glucagon (Glucagon 1 Mg/Ml Syringe) 1 mg IM .X1 PRN PRN Reason: Hypoglycemia Sodium Chloride () 1,000 mls @ 15 mls/hr IV .Q48H [facility] Last Infusion: 07/15/20 10:34 Dose: Infused Documented by: Insulin Glargine (Insulin Glargine 100 Units/Ml Pen) 30 units SC BID [facility] Last Admin: 07/15/20 10:34 Dose: 30 u Documented by: Insulin Human Lispro (Insulin Lispro 100 Unit/Ml Insuln.Pen) 0 unit [facility]; Protocol Methylprednisolone (Methylprednisolone 40 Mg/Ml Vial) 40 mg IV Q12 [facility] Stop: 07/15/20 20:01 Metoprolol Tartrate (Metoprolol Tartrate 25 Mg Tablet) 25 mg PO BID [facility] Last Admin: 07/15/20 05:59 Dose: 25 mg Documented by: Ondansetron HCl (Ondansetron 4 Mg/2 Ml Vial) 4 mg IV Q8H PRN PRN PRN Reason: NAUSEA/VOMITING Prednisone (Prednisone 20 Mg Tablet) 40 mg PO DAILY@0800 [facility] Stop: 07/20/20 08:01 Sodium Chloride (0.9% Saline Lock 10 Ml Syringe) 10 - 40 ml IV UD PRN PRN Reason: SALINE FLUSH Last Admin: 07/14/20 14:48 Dose: 10 ml Documented by: Ticagrelor (Ticagrelor 90 Mg Tablet) 90 mg PO BID [facility] Last Admin: 07/15/20 06:00 Dose: 90 mg Documented by: Assessment/Plan All Active Problems (Last Reviewed 07/13/20 @ 08:[address] Moise Krishnamurthy, DO) Acute respiratory failure (Acute) Acute respiratory acidosis (Acute) Elevated troponin (Acute) Left bundle branch block (Acute) NSTEMI (non-ST elevated myocardial infarction) (Acute) Pulmonary edema (Acute) (HFpEF) heart failure with preserved ejection fraction (Acute) Acute respiratory failure with hypoxia and hypercapnia (Acute) Debility (Acute) 1. Acute on CKD stage 3 due to ATN from contrast nephropathy in presence of underlying diabetic nephropathy, NSTEMI, ischemic cardiomyopathy. Baseline creatinine 1.1-1.3 increased to 2.7. Currently without uremic symptoms, nonoliguric. Hold on further contrast studies like heart cath if possible until renal fxn back to baseline. Will need hydration and suggest mucomyst prior to cath. Suspect underlying diabetic nephropathy. Renal US no hydro. Trace protein on UA. 2. NSTEMI troponin 90. EF 25%. Cardiology following 3. COPD with hypoxia, acute respiratory acidosis, off BIPAP 4. DM2 with elevated sugars. primary service mgmt 5. HTN stable 6. Hx tobacco use
--- NOTE | 2020-07-15 13:55 | CHAPLAIN ---
Type of Pastoral Visit _x__ Initial Visit ___ Follow-up Visit ___ On-call Visit ___ General Patient Visit ___ Spiritual Assessment ___ Family Conference ___ Bereavement ___ Rapid Response ___ Code Blue ___ Other (describe below) Pastoral Care Referral From _x__ Patient ___ Family ___ Nurse ___ Physician _x__ Patent Solicitor ___ Tube Winder ___ Other (describe below) Sacrament/Intervention _x__ Active listening ___ Anointing ___ Voodoo ___ Bereavement ___ Communion _x__ Elsie exploration ___ _x__ Life review _x__ Prayer ___ Reconciliation ___ Sacrament of Sick _x__ Supportive presence ___ Wedding ___ Other (describe below) Pastoral Comments patient gives current situation and life history review as she addresses her feelings of guilt and being overwhelmed; pt has been recommended to SNF and yet is concerned about her and family; 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
--- NOTE | 2020-07-15 15:04 | CASEMGMT ---
Social Work Return call from MADHU Coe at [facility]. She was able to make contact with pt and set up home health services for him. Carolin has not been able to make contact with pt to inform. LINH met with pt and informed of above. Pt appreciative for the information and relieved will be getting assistance. SOFIA Berrios
[2020-07-15 16:11] LABS: Urine Sodium 24 mmol/L (Not Establ.)
--- NOTE | 2020-07-15 16:27 | CON.PCM_ITS ---
Problem List (1) Debility Status: Acute (2) Anxiety disorder Status: Chronic Qualifiers: Anxiety disorder type: generalized anxiety disorder Qualified Code(s): F41.1 - Generalized anxiety disorder (3) NSTEMI (non-ST elevated myocardial infarction) Status: Acute (4) (HFpEF) heart failure with preserved ejection fraction Status: Acute Qualifiers: Heart failure chronicity: acute Qualified Code(s): I50.31 - Acute diastolic (congestive) heart failure (5) Acute respiratory failure with hypoxia and hypercapnia Status: Acute (6) Allergic rhinitis Status: Chronic Qualifiers: Allergic rhinitis trigger: pollen Allergic rhinitis seasonality: seasonal Qualified Code(s): J30.1 - Allergic rhinitis due to pollen (7) Lung nodule Status: Chronic Comment: 5.5 mm LLL (8) Menieres disease Status: Chronic (9) Gastroesophageal reflux disease with hiatal hernia Status: Chronic (10) Essential hypertension Status: Chronic (11) Dyslipidemia Status: Chronic (12) Diabetes mellitus, type 2 Status: Chronic Qualifiers: Diabetes mellitus fpc insulin use: with fpc use Diabetes mellitus complication status: with kidney complications Diabetes mellitus complication detail: with chronic kidney disease Chronic kidney disease stage: stage 3 (moderate) Chronic kidney disease stage 3 subtype: stage 3a (GFR 45- 59) Qualified Code(s): E11.22 - Type 2 diabetes mellitus with diabetic chronic kidney disease; N18.31 - Chronic kidney disease, stage 3a; Z79.4 - emt intermediate (current) use of insulin (13) Obesity (BMI 30-39.9) Status: Chronic (14) Depression Status: Chronic Qualifiers: Depression Type: unspecified Qualified Code(s): F32.9 - Major depressive disorder, single episode, unspecified (15) Chronic renal failure, stage 3 (moderate) Status: Chronic Qualifiers: Chronic kidney disease stage 3 subtype: stage 3b (GFR 30-44) Qualified Code(s): N18.32 - Chronic kidney disease, stage 3b History of Present Illness Date of Consult: 07/15/20 Reason for Consult: debility, anxiety Requesting physician: Primary care physician: Dr. Rufus Blanco DO - History of Present Illness The patient is a 75 year old F with past medical history as below, presented to the ED 07/13/2020 with chest pain and shortness of breath. Patient was initially hypoxic in the 80s and was started on oxygen, however required BiPAP. Patient ended up having an elevated BNP at 284.9 and a non-STEMI. Cardiology was consulted and she was admitted to the intensive care unit for further evaluation and management. CT angiogram of chest was negative for PE, showed diffuse pulmonary vascular congestion with patchy groundglass opacities and diffuse interstitial thickening. Covid negative. Echocardiogram revealed stage I diastolic dysfunction, estimated EF of 25%, severe segmental systolic dysfunction, and moderate pulmonary hypertension with an RVSP of 67 mmHg. Plan is to do heart cath when her INR returns to normal level. In the meantime, she has been on IV nitro. She has baseline creatinine of 1-1.3, currently at 2.7. Renal ultrasound showed no hydronephrosis, does have bilateral renal cysts. Nephrology consulted. Lorraine is a former smoker. She follows with [facility] and it appears her last visit with them was 2 weeks ago. She had pulmonary function tests in November 2019. She also follows with Dr. Ashok Horowitz, endocrinology. Also follows with Dr. Cleaning, vascular, and Dr. Benito. She is noted to be under a great deal of stress, her significant other was given a life expectancy of less than 6 months and is refusing to go on hospice. He was told he has poor heart function at around 10%, multiple recent MIs, and other chronic conditions. He was admitted to [facility] and was to be transferred directly to inpatient hospice, however declined at last minute and went home. She has five children, two daughters Caitlin and Leticia and one son Mario that live close. Lorraine lives in an apartment with her and grandson. There is approximately 13-14 stairs to go to her bedroom and bathroom in the home. Typically ambulates independently uses [employer] outside of the home for long distances. A short time ago, she was independent with her ADLs, however this has steadily declined. Patient is agreeable to go to assisted facility for additional therapy and acknowledges she cannot care for herself or her at this time. Apparently [facility], who provides home health, is working on long-term placement versus assisted living placement for the both of them. Patient requesting that her son, Mario make all medical decisions if she is unable to. Work has made a report to APS regarding patient's , Osvaldo Guzman, as his kids are checking on him but nobody is technically caring for him. Patient denies any current chest pain or shortness of breath. States the chest pain started in the upper back and then later was across to her anterior chest. She is tolerating room air well. Somewhat tearful during our conversation. States her spouse and her are not going to live together at assisted living. Patient plans to go to SNF and then transition to [facility]. Ji is refusing to go anywhere and is in the home with his grandson Ronnie attempting to care for him. However, Ronnie works and is fed up with his grandfather's habits. Apparently Ji is a drug addict and drinks vodka every chance he can get. Patient reports her spouse curses at her and is very demanding and demeaning. They have agreed to stay away from each other. Patient Problems: Chronic Problems (Last Reviewed 07/13/20 @ 08:[address] Moise Krishnamurthy, DO) COPD exacerbation (Chronic) Obesity (Chronic) Obesity (BMI 30-39.9) (Chronic) COPD exacerbation (Chronic) Allergic rhinitis (Chronic) Lung nodule (Chronic) 5.5 mm LLL Stage 2 moderate COPD by GOLD classification (Chronic) Menieres disease (Chronic) Gastroesophageal reflux disease with hiatal hernia (Chronic) Essential hypertension (Chronic) Dyslipidemia (Chronic) Diabetes mellitus, type 2 (Chronic) DVT of lower extremity (deep venous thrombosis) (Chronic) on coumadin Obesity (BMI 30-39.9) (Chronic) Depression (Chronic) Chronic renal failure, stage 3 (moderate) (Chronic) Anxiety disorder (Chronic) Surgical History: cholecystectomy, - - Psychiatric History: Anxiety Home Medications: Ambulatory Orders Medication Instructions Recorded Warfarin [Coumadin] 2.5 mg PO .COMPLEX 08/28/14 Clonazepam [Klonopin] 1 mg PO TID PRN PRN 08/14/15 Famotidine [Pepcid] 20 mg PO QHS 08/14/15 amlodipine 5 mg tablet 5 mg PO QHS 08/28/17 fenofibrate nanocrystallized 145 145 mg PO QHS 08/28/17 mg tablet hydrochlorothiazide 25 mg tablet 25 mg PO QAM 08/28/17 albuterol sulfate 2.5 mg INHALATION Q4H PRN 02/10/19 Simvastatin 40 mg PO QHS 04/02/19 ipratropium 0.5 mg-albuterol 3 mg 3 ml INHALATION Q6H PRN #180 ml 09/24/19 (2.5 mg base)/3 mL nebulization soln flash glucose scanning reader See Rx Instructions .ROUTE 01/29/20 .MEDSUPPLY #1 ea flash glucose sensor See Rx Instructions .ROUTE 01/29/20 .MEDSUPPLY #2 ea pen needle, diabetic 32 gauge x See Rx Instructions .ROUTE 01/29/20 .MEDSUPPLY #100 ea blood sugar diagnostic See Rx Instructions .ROUTE 01/30/20 .MEDSUPPLY #50 ea montelukast 10 mg tablet 10 mg PO QPM #30 tab 07/02/20 Insulin Glargine,Hum.rec.anlog 30 unit SC DAILY 07/13/20 [Lantus Solostar U-100 Insulin] Insulin Lispro See Protocol SC TID 07/13/20 Lisinopril [Zestril] 20 mg PO BID 07/13/20 Allergies Penicillins Allergy (Verified 07/13/20 02:49) Angioedema rosiglitazone maleate [From Avandia] Allergy (Verified 07/13/20 02:49) hyperglycemia cephalexin [From Keflex] Adverse Reaction (Verified 07/13/20 02:49) Diarrhea doxycycline Adverse Reaction (Verified 07/13/20 02:49) Diarrhea prednisone Adverse Reaction (Verified 07/13/20 02:49) hyperglycemia HYPERGLYCEMIA Sulfa (Sulfonamide Antibiotics) Adverse Reaction (Verified 07/13/20 02:49) Unknown pt is unsure Maternal Family History: Family History (Last Reviewed 07/13/20 @ 08:[address] Moise Krishnamurthy DO) Sister Lupus Arthritis Brother Colon cancer Cancer Arthritis Father Diabetes Heart disease Mother Hypertension History Items: No pertinent history Paternal Family History: Family History (Last Reviewed 07/13/20 @ 08:[address] Moise Krishnamurthy DO) Sister Lupus Arthritis Brother Colon cancer Cancer Arthritis Father Diabetes Heart disease Mother Hypertension History Items: No pertinent history - Social History Lives: Spouse/ Significant Other Smoking Status: Former smoker Tobacco Use: Non-smoker Drugs: None Review of Systems Constitutional: Reports: Weakness, Fatigue. Denies: Chills, Fever, Weight Change Eyes: Denies: Vision Change HEENT: Denies: Difficulty Swallowing, Head Aches, Sinus Congestion, Sinus Drainage, Sore Throat Cardiovascular: Reports: Edema. Denies: Chest Pain - None today, Light Headedness, Palpitations Respiratory: Reports: Shortness of breath upon exertion. Denies: Cough, Shortness of breath at rest, Sputum production, Wheezing Gastrointestinal: Denies: Abdominal Pain, Constipation, Nausea, Vomiting Genitourinary: Denies: Dysuria Musculoskeletal: Reports: Leg Pain. Denies: Joint Pain, Joint Tenderness Skin: Denies: Rash, Wounds Neurological: Denies: Change in Speech, Focal weakness, Numbness, Tingling, Tremor Psychiatric: Reports: Anxiety, Depression. Denies: Homicidal Ideations, Dougherty icidal Ideations Hematologic/ Lymphatic: Reports: Easy Bruising, Easy Bleeding, Hx of blood clot - Anticoagulated on Coumadin. Denies: Anemia Physical Exam Subjective: Patient lying in bed, no acute distress. Tearful with conversation but is very candid about her living situation. She is not having any pain or shortness of breath currently. Doing well on room air. General: Alert, Oriented x3, Cooperative, No apparent distress HEENT: Atraumatic, Normocephalic Oral: Moist Mucosa Neck: Supple, No JVD Lungs: Clear to auscultation, Diminished Cardiovascular: Regular rate, Regular Rhythm, Normal S1, Normal S2 Abdomen: Bowel Sounds Present, Soft, Non Tender, Obese Extremities: No clubbing, No cyanosis, Edema Skin: No rashes, No breakdown Musculoskeletal: No Tenderness to Palpation of Joints or Extremities Neurological: Cranial nerves II-XII grossly intact Psych/Mental Status: Normal Affect - Somewhat tearful, Appropriate Objective: Vital Signs Temp Pulse Resp BP Pulse Ox 98.0 F 90 18 144/62 H 93 07/15/20 12:00 07/15/20 14:55 07/15/20 14:55 07/15/20 12:00 07/15/20 12:00 Oxygen Flow Rate (L/min) 3 Oxygen Delivery Method Nasal Cannula Weight: 96.9 kg Body Mass Index (BMI) 36.7 Finger Stick Blood Glucose 241 Intake and Output for Last 24 Hours 07/13/20 07/14/20 07/15/20 23:59 23:59 23:59 Intake Total 660.3 / 660.3 830 / 830 537.5 / 537.5 Output Total 2935 / 3035 760 / 960 1075 / 1075 Balance -2274.7 / -2374.7 70 / -130 -537.5 / -537.5 Microbiology Past 72 Hours 07/13/20 03:20 Blood Culture - Preliminary Blood Culture (Wb) #2 - Anticubital Right No growth in 48 hours. 07/13/20 03:12 Blood Culture - Preliminary Blood Culture (Wb) - Anticubital Left No growth in 48 hours. 07/13/20 03:20 SARS-CoV-2 Antigen (Rapid) - Final Mucosa - Nose Laboratory Tests Past 24 Hrs 07/15/20 07/15/20 07/15/20 04:30 04:30 04:30 WBC 12.9 H RBC 4.24 Hgb 12.1 Hct 38.5 MCV 90.8 MCH 28.5 MCHC 31.4 L RDW Std Deviation 50.4 H RDW Coeff of [place] 15.2 H Plt Count 198 MPV 12.1 H Immature Gran % (Auto) 0.500 Neut % (Auto) 90.9 H Lymph % (Auto) 5.1 L [place] % (Auto) 3.4 Eos % (Auto) 0.0 Baso % (Auto) 0.1 Absolute Neuts (auto) 11.7 H Absolute Lymphs (auto) 0.66 L Nucleated RBC % 0 PT 29.0 H INR 2.8 Sodium 134 L Potassium 5.0 Chloride 101 Carbon Dioxide 26.0 Anion Gap 7 BUN 82 H Creatinine 2.70 H Estim Creat Clear Calc 15.31 Est GFR (MDRD) Af Amer 22 L Est GFR (MDRD) Non-Af 18 L BUN/Creatinine Ratio 30.4 H Glucose 356 H Calcium 8.2 L Ur Random Sodium 07/15/20 15:45 WBC RBC Hgb Hct MCV MCH MCHC RDW Std Deviation RDW Coeff of [place] Plt Count MPV Immature Gran % (Auto) Neut % (Auto) Lymph % (Auto) [place] % (Auto) Eos % (Auto) Baso % (Auto) Absolute Neuts (auto) Absolute Lymphs (auto) Nucleated RBC % PT INR Sodium Potassium Chloride Carbon Dioxide Anion Gap BUN Creatinine Estim Creat Clear Calc Est GFR (MDRD) Af Amer Est GFR (MDRD) Non-Af BUN/Creatinine Ratio Glucose Calcium Ur Random Sodium 24 Assessment/Plan All Active Problems (Last Reviewed 07/13/20 @ 08:[address] Moise Krishnamurthy, DO) Acute respiratory failure (Acute) Acute respiratory acidosis (Acute) Elevated troponin (Acute) Left bundle branch block (Acute) NSTEMI (non-ST elevated myocardial infarction) (Acute) Pulmonary edema (Acute) (HFpEF) heart failure with preserved ejection fraction (Acute) Acute respiratory failure with hypoxia and hypercapnia (Acute) Debility (Acute) 75-year-old female admitted with non-STEMI, acute new onset congestive heart failure, and acute kidney injury. Seen today for palliative care consultation related to debility and overall decline in ability to perform ADLs. Also with significant anxiety and depression. 1. Debility/weakness: Progressively worsening, especially in the setting of acute NSTEMI and CHF. Significant caregiver burden at home for her spouse, who has life expectancy of less than 6 months. Has [employer] 1 day/wk for 2 hours, qualifies for more but CM cannot find staffing. 2. Anxiety and depression: Worsening, takes Klonopin 1 mg 3 times daily as needed at home. Not on any maintenance antidepressant. She would benefit from an SSRI, however with recent IL, would hold off initiating therapy. We will follow up with her as an outpatient. 3. New onset CHF with EF of 25%: Continues with oxygen supplementation, anywhere from 1 to 5 L in the last 2 days. She is out of the ICU and not requiring BiPAP at this point. She will need a lot of ongoing education regarding CHF and comorbidities. 4. KIT/COPD/allergic rhinitis/prior lung nodule/GERD/M?ni?re's disease/HTN/H LD/T2 DM/obesity: Complicates overall care, management, recovery, and prognosis. Advised close follow-up with her specialists and with PCP, Dr. Blanco. Greater than 50% of F2F dedicated to education and counseling of comorbidities, current stresses in the patient's life, plan of care moving forward, and CHF management. Start: 1631 End: 7570 Thank you for the opportunity to participate in this patient's care, please do not hesitate to contact [facility] with any further questions or concerns. Palliative direct line is [phone]. We will have RN follow up approximately 3 days after discharge to home and will discuss palliative services further at that time.
[2020-07-15 17:05] LABS: Bedside Glucose 323 mg/dL (70-110)
[2020-07-15] MEDS: 0.9% Saline Lock 10 ML Syringe IV (21:14)
[2020-07-15] MEDS: Atorvastatin Calcium 40 MG Tablet PO (21:22)
[2020-07-15 22:50] LABS: Bedside Glucose 430 mg/dL (70-110)
[2020-07-16] VITALS (17 sets, daily range): BP systolic 134–172; BP diastolic 50–77; PULSE 58–85; RESP 16–20; TEMP 36.3–36.9; O2SAT 91–94
[2020-07-16 04:58] LABS: Absolute Lymphocyte Count 0.45 X10^3/uL (0.83-4.51); Basophil# 0.01 X10^3/uL; Basophil% 0.1 % (0-1); Hematocrit 38.9 % (37-47); Hemoglobin 12.1 g/dL (12.0-15.0); Lymphocyte # 0.45 X10^3/ul (4.0); Lymphocyte % 5.2 % (19-41); Mean Corp Hgb Conc 31.1 g/dL (32-36); Mean Corpuscular Hgb 28.4 pg (27.0-32.0); Mean Corpuscular Volume 91.3 fL (81-99); Mean Platelet Vol. 12.8 fl (6.2-12.0); Monocyte# 0.25 X10^3/uL; Monocyte% 2.9 % (0-10); NRBC Flagged by Analyzer 0 % (0-5); Neutrophil # 7.95 X10^3/uL (2.7-7.7); POSITIVE DIFFERENTIAL YES; Platelet Count 188 K/mm3 (150-450); RBC Distribution Width CV 15.5 % (11.6-14.6); RBC Distribution Width SD 51.2 fl (35.1-43.9); Red Blood Count 4.26 M/mm3 (4.2-5.4); White Blood Count 8.7 K/mm3 (4.4-11.0)
[2020-07-16 05:09] LABS: International Normalized Ratio 2.1
[2020-07-16 05:22] LABS: Anion Gap 9 (5-15); BUN 87 mg/dL (7-18); BUN/Creat Ratio 41.6 RATIO (10-20); Calcium,Total 8.2 mg/dL (8.5-10.1); Chloride 103 mmol/L (98-107); Creatinine, Serum 2.09 mg/dL (0.55-1.02); EST Glomerular Filtration Rate 25 mL/min (>60); Est Glom Filt Rate - Afr Amer 30 mL/min (>60); Estimated Creatinine Clearance 19.77 ml/min; Glucose 465 mg/dL (74-106); Potassium 5.1 mmol/L (3.5-5.1); Sodium Level 136 mmol/L (136-145)
[2020-07-16 05:23] LABS: Differential Indicated SCAN CRITERIA MET
[2020-07-16 05:34] LABS: Differential Comment SCANNED
--- NOTE | 2020-07-16 05:55 | EKG12_ITS ---
Test Reason : AM EKG Blood Pressure : / mmHG Vent. Rate : 066 BPM Atrial Rate : 066 BPM P-R Int : 142 ms QRS Dur : 158 ms QT Int : 442 ms P-R-T Axes : 062 -04 230 degrees QTc Int : 463 ms Normal sinus rhythm Left bundle branch block Abnormal ECG When compared with ECG of 14-JUL-2020 05:51, T wave inversion more evident in Inferior leads T wave inversion less evident in Anterior leads QT has shortened Confirmed by LEE TORRES, LIZETTE ([id number]), editor in chief newspaper MICHAEL BARROSO ([id number]) on 07/19/2020 10:59:09 AM Referred By: BARBARA Confirmed By:LIZETTE HOWARD MD
[2020-07-16] MEDS: Insulin Lispro 100 UNIT/ML INSULN.PEN 6 UNIT SC (06:04)
[2020-07-16] MEDS: Ipratropium/Albuterol Sulfate 3 ML AMPUL.NEB INHALATION ×4 (06:42→18:56)
[2020-07-16] MEDS: Insulin Lispro 100 UNIT/ML INSULN.PEN SC ×4 (06:53→22:47)
[2020-07-16 07:00] LABS: Bedside Glucose 400 mg/dL (70-110)
--- NOTE | 2020-07-16 08:26 | PN.CARD_ITS ---
Subjectve: Patient seen and evaluated. Appears to be doing better. Objective: Vital Signs Temp Pulse Resp BP Pulse Ox 98.4 F 62 16 146/77 H 94 07/16/20 05:27 07/16/20 07:00 07/16/20 06:49 07/16/20 05:27 07/16/20 06:49 Oxygen Flow Rate (L/min) 2 Oxygen Delivery Method Room Air Weight: 209 lb 7.026 oz Body Mass Index (BMI) 36.7 Finger Stick Blood Glucose 241 Intake and Output for Last 24 Hours 07/14/20 07/15/20 07/16/20 23:59 23:59 23:59 Intake Total 830 / 830 777.5 / 777.5 200 / 200 Output Total 760 / 960 1450 / 1450 825 / 825 Balance 70 / -130 -672.5 / -672.5 -625 / -625 General: Awake, Alert, Oriented x 3 HEENT: PERRL, EOMI, Sclera Non Icteric Neck: Supple, Good ROM, No Lymph Node Enlargement Lungs: Clear to auscultation Cardiovascular: Regular Rhythm, Normal S1, Normal S2, No Murmurs, No Rubs, No Gallops Vascular: No Carotid Bruits, Normal Femoral Pulses, Normal Radial Pulses, Normal Dorsalis Pedal Pulse, Normal Posterior Tibial Pulses Abdomen: Bowel Sounds Present, Soft, Non Tender, No HSM, No Organomegaly Extremities: No Cyanosis, No Clubbing, No edema Neurological: No Focal Motor or Sensory Deficit 07/16/20 04:25: WBC 8.7, RBC 4.26, Hgb 12.1, Hct 38.9, MCV 91.3, MCH 28.4, MCHC 31.1 L, Plt Count 188, MPV 12.8 H, Immature Gran % (Auto) 0.800, Neut % (Auto) 91.0 H, Lymph % (Auto) 5.2 L, Love % (Auto) 2.9, Eos % (Auto) 0.0, Baso % (Auto) 0.1, Absolute Neuts (auto) 8.0 H, Nucleated RBC % 0 07/16/20 04:25: Sodium 136, Potassium 5.1, Chloride 103, Carbon Dioxide 24.0, Anion Gap 9, BUN 87 H, Creatinine 2.09 H, Est GFR (MDRD) Af Amer 30 L, Est GFR (MDRD) Non-Af 25 L, BUN/Creatinine Ratio 41.6 H, Glucose 465 H*, Calcium 8.2 L 07/16/20 04:25: PT 23.0 H, INR 2.1 Rhythm: EKG: ECHO: Stress Test: Cardiac Cath: PCI: CT Surgery: Holter monitor: EPS: PPM: CXR: Chest CT Scan: Medical Necessity - Tobacco Use Smoking Status: Former smoker Tobacco Use: Non-smoker Assessment/Plan 1. Non-ST elevation myocardial infarction * Patient presents with shortness of breath and is noted to have a new left bundle branch block and cardiac enzymes consistent with a non-ST elevation myocardial infarction. * Patient is also in heart failure and will ultimately need a left heart catheterization. The risk benefits alternatives have been explained to her she understands and agrees to proceed. I have suggested to her that this may need to wait till early on in the week. She is agreeable with this approach. * Will hold Coumadin and wait for INR to drift below 2. * Will reinstitute aspirin * 2. Acute congestive heart failure-systolic * Patient presents with acute shortness of breath and is noted to be in congestive heart failure. * Will institute intravenous nitroglycerin as well as intravenous Lasix * Echocardiogram performed in process demonstrates reduced left ventricular systolic function * Will start beta-urszula and continue * 3. Hypertension * Her blood pressure appears to be better controlled at this time on the intravenous nitroglycerin. * 4. Left bundle branch block * This appears to be new and likely secondary to coronary artery disease. * Will continue to observe for now * * * Due to the worsening creatinine I would recommend holding off on the heart catheterization till early next week. This has been discussed with the patient and the team and they agree to proceed with the above plan. * Thank you for allowing me to participate in the care of your patient. Please don't hesitate to call if any issues arise.
[2020-07-16] MEDS: Aspirin 81 MG TAB.CHEW PO (08:55)
[2020-07-16] MEDS: predniSONE 20 MG Tablet 40 MG PO (08:55)
[2020-07-16] MEDS: TICAGRELOR 90 MG TABLET PO ×2 (08:56→22:31)
[2020-07-16] MEDS: Metoprolol Tartrate 25 MG Tablet PO ×2 (08:56→22:31)
[2020-07-16] MEDS: clonazePAM 1 MG Tablet PO ×2 (09:03→22:41)
[2020-07-16 11:10] LABS: Bedside Glucose 351 mg/dL (70-110)
--- NOTE | 2020-07-16 13:43 | CASEMGMT ---
Plan is for patient to have a heart cath on Sunday. SW called Judith at [facility] and let her know patient is getting a heart cath Sunday so she will not be ready over the weekend. Plan: [facility] pending patient being medically ready and insurance approving. Xi VÁZQUEZ MSW
--- NOTE | 2020-07-16 14:14 | PCM.PN.HOSP ---
Patient Problems: Active and Suspected Problems (Last Reviewed 07/13/20 @ 08:[address] Moise Krishnamurthy, DO) Acute respiratory failure (Acute) Acute respiratory acidosis (Acute) Elevated troponin (Acute) Left bundle branch block (Acute) NSTEMI (non-ST elevated myocardial infarction) (Acute) Pulmonary edema (Acute) (HFpEF) heart failure with preserved ejection fraction (Acute) Acute respiratory failure with hypoxia and hypercapnia (Acute) Debility (Acute) Subjective: Reading well. No chest pain. Yesterday told staff that she no longer wanted to see Dr. Fofana. No specific reasoning was provided. Vitals/I&O's: Vital Signs Temp Pulse Resp BP Pulse Ox 36.9 C 62 18 148/57 H 94 07/16/20 12:10 07/16/20 12:10 07/16/20 12:10 07/16/20 12:10 07/16/20 12:10 Oxygen Flow Rate (L/min) 2 Oxygen Delivery Method Room Air Weight: 95 kg Body Mass Index (BMI) 36.7 Finger Stick Blood Glucose 241 Intake and Output for Last 24 Hours 07/14/20 07/15/20 07/16/20 23:59 23:59 23:59 Intake Total 830 / 830 777.5 / 777.5 600 / 600 Output Total 760 / 960 1450 / 1450 1525 / 1525 Balance 70 / -130 -672.5 / -672.5 -925 / -925 General: Alert, No apparent distress HEENT: Atraumatic, Normocephalic Neck: No Nodes, Thyroid Normal Size and Texture Lungs: No rhonchi, - - Bibasilar crackles Cardiovascular: Regular rate, Regular Rhythm, Normal S1, Normal S2 Abdomen: Bowel Sounds Present, Soft, Non Tender, Non-Distended, No Hepato-splenomegaly Extremities: No Calf Tenderness Psych/Mental Status: Normal Affect, Appropriate Microbiology Past 72 Hours 07/13/20 03:20 Blood Culture (Wb) #2 - Anticubital Right Blood Culture - Preliminary No growth in 48 hours. 07/13/20 03:12 Blood Culture (Wb) - Anticubital Left Blood Culture - Preliminary No growth in 48 hours. Laboratory Results 07/15/20 15:45: Ur Random Sodium 24 07/15/20 16:59: POC Glucose 323 H 07/15/20 21:24: POC Glucose 430 H 07/16/20 04:25: WBC 8.7, RBC 4.26, Hgb 12.1, Hct 38.9, MCV 91.3, MCH 28.4, MCHC 31.1 L, RDW Std Deviation 51.2 H, RDW Coeff of [place] 15.5 H, Plt Count 188, MPV 12.8 H, Immature Gran % (Auto) 0.800, Neut % (Auto) 91.0 H, Lymph % (Auto) 5.2 L, [place] % (Auto) 2.9, Eos % (Auto) 0.0, Baso % (Auto) 0.1, Absolute Neuts (auto) 8.0 H, Absolute Lymphs (auto) 0.45 L, Nucleated RBC % 0, Differential Comment SCANNED 07/16/20 04:25: Sodium 136, Potassium 5.1, Chloride 103, Carbon Dioxide 24.0, Anion Gap 9, BUN 87 H, Creatinine 2.09 H, Estim Creat Clear Calc 19.77, Est GFR (MDRD) Af Amer 30 L, Est GFR (MDRD) Non-Af 25 L, BUN/Creatinine Ratio 41.6 H, Glucose 465 H*, Calcium 8.2 L 07/16/20 04:25: PT 23.0 H, INR 2.1 07/16/20 06:52: POC Glucose 400 H 07/16/20 11:03: POC Glucose 351 H Current Medications Acetaminophen (Acetaminophen 325 Mg Tablet) 650 mg PO Q6H PRN PRN PRN Reason: Pain Score 1-10/Temp > 100.7 F Last Admin: 07/14/20 15:08 Dose: 650 mg Documented by: Albuterol Sulfate (Albuterol 2.5 Mg/3 Ml Vial.Neb.) 2.5 mg INHALATION Q2H PRN PRN PRN Reason: SHORTNESS OF BREATH Albuterol/Ipratropium (Ipratropium/Albuterol Sulfate 3 Ml Ampul.Neb) 3 ml INHALATION Q4HWA.RT [facility] Last Admin: 07/16/20 10:43 Dose: 3 ml Documented by: Aspirin (Aspirin 81 Mg Tab.Chew) 81 mg PO DAILY@0800 [facility] Last Admin: 07/16/20 08:55 Dose: 81 mg Documented by: Atorvastatin Calcium (Atorvastatin Calcium 40 Mg Tablet) 40 mg PO QHS [facility] Last Admin: 07/15/20 21:22 Dose: 40 mg Documented by: Clonazepam (Clonazepam 1 Mg Tablet) 1 mg PO TID PRN PRN PRN Reason: ANXIETY Last Admin: 07/16/20 09:03 Dose: 1 mg Documented by: Dextrose (Dextrose 50%-Water 25 Gm/50 Ml Disp.Syrin) 0 gm IV X1 PRN; Protocol PRN Reason: Hypoglycemia Glucagon (Glucagon 1 Mg/Ml Syringe) 1 mg IM .X1 PRN PRN Reason: Hypoglycemia Sodium Chloride () 1,000 mls @ 15 mls/hr IV .Q48H [facility] Last Admin: 07/16/20 08:47 Dose: Not Given Documented by: Insulin Glargine (Insulin Glargine 100 Units/Ml Pen) 30 units SC BID [facility] Last Admin: 07/16/20 08:56 Dose: 30 u Documented by: Insulin Human Lispro (Insulin Lispro 100 Unit/Ml Insuln.Pen) 0 unit SC ACHS [facility]; Protocol Last Admin: 07/16/20 11:04 Dose: 8 units Documented by: Metoprolol Tartrate (Metoprolol Tartrate 25 Mg Tablet) 25 mg PO BID [facility] Last Admin: 07/16/20 08:56 Dose: 25 mg Documented by: Ondansetron HCl (Ondansetron 4 Mg/2 Ml Vial) 4 mg IV Q8H PRN PRN PRN Reason: NAUSEA/VOMITING Prednisone (Prednisone 20 Mg Tablet) 40 mg PO DAILY@0800 [facility] Stop: 07/20/20 08:01 Last Admin: 07/16/20 08:55 Dose: 40 mg Documented by: Sodium Chloride (0.9% Saline Lock 10 Ml Syringe) 10 - 40 ml IV UD PRN PRN Reason: SALINE FLUSH Last Admin: 07/15/20 21:14 Dose: 10 ml Documented by: Ticagrelor (Ticagrelor 90 Mg Tablet) 90 mg PO BID [facility] Last Admin: 07/16/20 08:56 Dose: 90 mg Documented by: STROKE Vital Signs/Narrative: Vital Signs Temp Pulse Resp BP Pulse Ox 07/16/20 12:10 36.9 C 62 18 148/57 H 94 07/16/20 10:43 71 20 H Medical Necessity - Tobacco Use Smoking Status: Former smoker Tobacco Use: Non-smoker Assessment/Plan All Active Problems (Last Reviewed 07/13/20 @ 08:[address] Moise Krishnamurthy, DO) Acute respiratory failure (Acute) Acute respiratory acidosis (Acute) Elevated troponin (Acute) Left bundle branch block (Acute) NSTEMI (non-ST elevated myocardial infarction) (Acute) Pulmonary edema (Acute) (HFpEF) heart failure with preserved ejection fraction (Acute) Acute respiratory failure with hypoxia and hypercapnia (Acute) Debility (Acute) 1. Acute hypoxic and hypercapnic respiratory failure Improved, now room air Likely multifactorial due to CHF and the patient's known history of COPD Plan Wean oxygen as tolerated. Patient will be continue to be monitored in the ICU in case she were to decline. 2. Acute heart failure with reduced ejection fraction Clinically improved EF 65% from echocardiogram on 04/03/2019, now down to 25%. suspect flash pulmonary edema Suspect ischemic cardiomyopathy Plan Supportive mgmt at this time Furosemide and lisinopril held given KIT 3. Non-ST elevation myocardial infarction New low bundle-branch block, least from 2018 Troponins peaked at 90.5 Plan Patient already anticoagulated as her INR is 2.5. We will hold off on additional warfarin at this time given anticipated cardiac catheterization on or Hold off on beta-urszula given the acute CHF but also with patient's known history of severe large airway obstructive disease 07/14: NANCY Leon, given KIT, hold on cardiac cath for now. ticagrelor. loaded on . Plan for left heart catheterization on the 4. KIT suspect contrast primarily but also diuresis and lisinopril Improving FEUrea 10.9%, consistent with prerenal plan DC furosemide and lisinopril no heart cath for now Patient informed staff that she no longer wishes to see Dr. Fofana. Hold off in any new groundsman as creatinine is improving. 5. possibe acute COPD I doubt an acute exacerbation at this time but difficult to tease out definitively Plan Bronchodilators IV methylprednisolone for now, wean to q12 today, then prednisone starting 07/16 6. History of VTE Currently anticoagulated his INR is 2.8. Warfarin currently being held anticipation of a cardiac catheterization on the . INR still trending up despite not receiving warfarin since admission. No evidence of bleeding. continue to monitor. 7. Diabetes mellitus type 2 Uncontrolled, likley exacerbated by steroids and physiologic stressors Last A1c was 8.5 from January 28 Plan Sliding scale insulin Glargine and add prandial 8. VTE prophylaxis: Not indicated this patient is already anticoagulated 9. Advanced care planning: rediscussed today. DNRCCA, with intubation, if necessary. Inpatient E&M: 23230 Subs Hosp L2
[2020-07-16 16:26] LABS: Bedside Glucose 386 mg/dL (70-110)
--- NOTE | 2020-07-16 17:03 | PCM.PN.REN ---
Patient Problems: Active and Suspected Problems (Last Reviewed 07/13/20 @ 08:[address] Moise Krishnamurthy, DO) Acute respiratory failure (Acute) Acute respiratory acidosis (Acute) Elevated troponin (Acute) Left bundle branch block (Acute) NSTEMI (non-ST elevated myocardial infarction) (Acute) Pulmonary edema (Acute) (HFpEF) heart failure with preserved ejection fraction (Acute) Acute respiratory failure with hypoxia and hypercapnia (Acute) Debility (Acute) Subjective: cough, wheezing from COPD. Denies substernal chest pain - Physical Exam Vitals/I&O's: Vital Signs Temp Pulse Resp BP Pulse Ox 98.4 F 85 20 H 148/57 H 94 07/16/20 12:10 07/16/20 15:02 07/16/20 15:02 07/16/20 12:10 07/16/20 12:10 Oxygen Flow Rate (L/min) 2 Oxygen Delivery Method Room Air Weight: 95 kg Body Mass Index (BMI) 36.7 Finger Stick Blood Glucose 241 Intake and Output for Last 24 Hours 07/14/20 07/15/20 07/16/20 23:59 23:59 23:59 Intake Total 830 / 830 777.5 / 777.5 600 / 600 Output Total 760 / 960 1450 / 1450 1525 / 1525 Balance 70 / -130 -672.5 / -672.5 -925 / -925 General: Alert, Oriented x3, Cooperative, No apparent distress Lungs: Wheezes Cardiovascular: Regular rate, Irregular Rate Abdomen: Bowel Sounds Present, Soft, Non Tender, Non-Distended Extremities: No cyanosis, No edema Psych/Mental Status: Normal Affect, Alert and oriented to time, place, person, mood and affect Microbiology Past 72 Hours 07/13/20 03:20 Blood Culture (Wb) #2 - Anticubital Right Blood Culture - Preliminary No growth in 48 hours. 07/13/20 03:12 Blood Culture (Wb) - Anticubital Left Blood Culture - Preliminary No growth in 48 hours. Laboratory Results 07/15/20 16:59: POC Glucose 323 H 07/15/20 21:24: POC Glucose 430 H 07/16/20 04:25: WBC 8.7, RBC 4.26, Hgb 12.1, Hct 38.9, MCV 91.3, MCH 28.4, MCHC 31.1 L, RDW Std Deviation 51.2 H, RDW Coeff of [place] 15.5 H, Plt Count 188, MPV 12.8 H, Immature Gran % (Auto) 0.800, Neut % (Auto) 91.0 H, Lymph % (Auto) 5.2 L, [place] % (Auto) 2.9, Eos % (Auto) 0.0, Baso % (Auto) 0.1, Absolute Neuts (auto) 8.0 H, Absolute Lymphs (auto) 0.45 L, Nucleated RBC % 0, Differential Comment SCANNED 07/16/20 04:25: Sodium 136, Potassium 5.1, Chloride 103, Carbon Dioxide 24.0, Anion Gap 9, BUN 87 H, Creatinine 2.09 H, Estim Creat Clear Calc 19.77, Est GFR (MDRD) Af Amer 30 L, Est GFR (MDRD) Non-Af 25 L, BUN/Creatinine Ratio 41.6 H, Glucose 465 H*, Calcium 8.2 L 07/16/20 04:25: PT 23.0 H, INR 2.1 07/16/20 06:52: POC Glucose 400 H 07/16/20 11:03: POC Glucose 351 H 07/16/20 16:16: POC Glucose 386 H Current Medications Acetaminophen (Acetaminophen 325 Mg Tablet) 650 mg PO Q6H PRN PRN PRN Reason: Pain Score 1-10/Temp > 100.7 F Last Admin: 07/14/20 15:08 Dose: 650 mg Documented by: Albuterol Sulfate (Albuterol 2.5 Mg/3 Ml Vial.Neb.) 2.5 mg INHALATION Q2H PRN PRN PRN Reason: SHORTNESS OF BREATH Albuterol/Ipratropium (Ipratropium/Albuterol Sulfate 3 Ml Ampul.Neb) 3 ml INHALATION Q4HWA.RT [facility] Last Admin: 07/16/20 15:02 Dose: 3 ml Documented by: Aspirin (Aspirin 81 Mg Tab.Chew) 81 mg PO DAILY@0800 [facility] Last Admin: 07/16/20 08:55 Dose: 81 mg Documented by: Atorvastatin Calcium (Atorvastatin Calcium 40 Mg Tablet) 40 mg PO QHS [facility] Last Admin: 07/15/20 21:22 Dose: 40 mg Documented by: Clonazepam (Clonazepam 1 Mg Tablet) 1 mg PO TID PRN PRN PRN Reason: ANXIETY Last Admin: 07/16/20 09:03 Dose: 1 mg Documented by: Dextrose (Dextrose 50%-Water 25 Gm/50 Ml Disp.Syrin) 0 gm IV X1 PRN; Protocol PRN Reason: Hypoglycemia Glucagon (Glucagon 1 Mg/Ml Syringe) 1 mg IM .X1 PRN PRN Reason: Hypoglycemia Sodium Chloride () 1,000 mls @ 15 mls/hr IV .Q48H [facility] Last Admin: 07/16/20 08:47 Dose: Not Given Documented by: Insulin Glargine (Insulin Glargine 100 Units/Ml Pen) 30 units SC BID [facility] Last Admin: 07/16/20 08:56 Dose: 30 u Documented by: Insulin Human Lispro (Insulin Lispro 100 Unit/Ml Insuln.Pen) 0 unit SC ACHS [facility]; Protocol Last Admin: 07/16/20 16:17 Dose: 10 units Documented by: Metoprolol Tartrate (Metoprolol Tartrate 25 Mg Tablet) 25 mg PO BID [facility] Last Admin: 07/16/20 08:56 Dose: 25 mg Documented by: Ondansetron HCl (Ondansetron 4 Mg/2 Ml Vial) 4 mg IV Q8H PRN PRN PRN Reason: NAUSEA/VOMITING Prednisone (Prednisone 20 Mg Tablet) 40 mg PO DAILY@0800 [facility] Stop: 07/20/20 08:01 Last Admin: 07/16/20 08:55 Dose: 40 mg Documented by: Sodium Chloride (0.9% Saline Lock 10 Ml Syringe) 10 - 40 ml IV UD PRN PRN Reason: SALINE FLUSH Last Admin: 07/15/20 21:14 Dose: 10 ml Documented by: Ticagrelor (Ticagrelor 90 Mg Tablet) 90 mg PO BID [facility] Last Admin: 07/16/20 08:56 Dose: 90 mg Documented by: Medical Necessity - Tobacco Use Smoking Status: Former smoker Tobacco Use: Non-smoker Assessment/Plan All Active Problems (Last Reviewed 07/13/20 @ 08:[address] Moise Krishnamurthy DO) Acute respiratory failure (Acute) Acute respiratory acidosis (Acute) Elevated troponin (Acute) Left bundle branch block (Acute) NSTEMI (non-ST elevated myocardial infarction) (Acute) Pulmonary edema (Acute) (HFpEF) heart failure with preserved ejection fraction (Acute) Acute respiratory failure with hypoxia and hypercapnia (Acute) Debility (Acute) 1. Acute on CKD stage 3 due to ATN from contrast nephropathy. Creatinine improved to 2.0 today. Baseline creatinine 1.1-1.3. Recommend hydration before heart cath. 2. NSTEMI troponin 90. EF 25%. Cardiology following 3. COPD with hypoxia, acute respiratory acidosis stable on RA 4. DM2 primary service mgmt 5. HTN stable 6. Hx tobacco use
[2020-07-16 21:26] LABS: Bedside Glucose 405 mg/dL (70-110)
[2020-07-16] MEDS: Atorvastatin Calcium 40 MG Tablet PO (22:30)
[2020-07-17] VITALS (15 sets, daily range): BP systolic 139–149; BP diastolic 59–68; PULSE 52–60; RESP 16–24; TEMP 36.2–36.6; O2SAT 95–98
[2020-07-17] MEDS: Insulin Lispro 100 UNIT/ML INSULN.PEN SC ×4 (06:50→22:40)
[2020-07-17 06:55] LABS: Bedside Glucose 216 mg/dL (70-110)
[2020-07-17] MEDS: Ipratropium/Albuterol Sulfate 3 ML AMPUL.NEB INHALATION ×4 (06:57→18:31)
[2020-07-17 07:54] LABS: Anion Gap 5 (5-15); BUN 65 mg/dL (7-18); BUN/Creat Ratio 40.6 RATIO (10-20); Calcium,Total 8.6 mg/dL (8.5-10.1); Chloride 108 mmol/L (98-107); EST Glomerular Filtration Rate 33 mL/min (>60); Est Glom Filt Rate - Afr Amer 40 mL/min (>60); Estimated Creatinine Clearance 25.83 ml/min; Glucose 201 mg/dL (74-106); Sodium Level 142 mmol/L (136-145)
[2020-07-17] MEDS: Acetaminophen 325 MG Tablet 650 MG PO ×2 (08:44→16:53)
[2020-07-17] MEDS: predniSONE 20 MG Tablet 40 MG PO (08:45)
[2020-07-17] MEDS: TICAGRELOR 90 MG TABLET PO ×2 (08:45→22:43)
[2020-07-17] MEDS: Aspirin 81 MG TAB.CHEW PO (08:45)
[2020-07-17] MEDS: Polyethylene Glycol 3350 17 GM PACKET PO (10:43)
--- NOTE | 2020-07-17 11:33 | PN_ITS ---
Patient Problems: Active and Suspected Problems (Last Reviewed 07/13/20 @ 08:[address] Moise Krishnamurthy, DO) Acute respiratory failure (Acute) Acute respiratory acidosis (Acute) Elevated troponin (Acute) Left bundle branch block (Acute) NSTEMI (non-ST elevated myocardial infarction) (Acute) Pulmonary edema (Acute) (HFpEF) heart failure with preserved ejection fraction (Acute) Acute respiratory failure with hypoxia and hypercapnia (Acute) Debility (Acute) Subjective: Short of breath, but stable on room air. Anxious about the [facility]. States that she'll be going to a SNF upon discharge. Vitals/I&O's: Vital Signs Temp Pulse Resp BP Pulse Ox 36.4 C L 57 L 18 149/68 H 97 07/17/20 10:04 07/17/20 10:59 07/17/20 10:04 07/17/20 10:04 07/17/20 10:04 Oxygen Flow Rate (L/min) 2 Oxygen Delivery Method Room Air Weight: 95 kg Body Mass Index (BMI) 36.7 Finger Stick Blood Glucose 241 Intake and Output for Last 24 Hours 07/15/20 07/16/20 07/17/20 23:59 23:59 23:59 Intake Total 777.5 / 777.5 900 / 1700 1200 / 1200 Output Total 1450 / 1450 2025 / 2500 1125 / 1125 Balance -672.5 / -672.5 -1125 / -800 75 / 75 General: Alert, No apparent distress HEENT: Atraumatic, Normocephalic Oral: Moist Mucosa, No Gingival or Mucosal Lesions/ Ulcerations Neck: No Nodes, Thyroid Normal Size and Texture Lungs: Normal air movement, - - crackles in bases. Cardiovascular: Regular rate, Regular Rhythm, Normal S1, Normal S2, No murmurs Abdomen: Bowel Sounds Present, Soft, Non Tender, Non-Distended, No Hepato- splenomegaly Extremities: No edema, No Calf Tenderness Psych/Mental Status: Normal Affect, Appropriate Microbiology Past 72 Hours 07/13/20 03:20 Blood Culture (Wb) #2 - Anticubital Right Blood Culture - Preliminary No growth in 48 hours. 07/13/20 03:12 Blood Culture (Wb) - Anticubital Left Blood Culture - Preliminary No growth in 48 hours. Laboratory Results 07/16/20 16:16: POC Glucose 386 H 07/16/20 21:21: POC Glucose 405 H 07/17/20 06:49: POC Glucose 216 H 07/17/20 07:00: Sodium 142, Potassium 4.0, Chloride 108 H, Carbon Dioxide 29.0, Anion Gap 5, BUN 65 H, Creatinine 1.60 H, Estim Creat Clear Calc 25.83, Est GFR (MDRD) Af Amer 40 L, Est GFR (MDRD) Non-Af 33 L, BUN/Creatinine Ratio 40.6 H, Glucose 201 H, Calcium 8.6 Current Medications Acetaminophen (Acetaminophen 325 Mg Tablet) 650 mg PO Q6H PRN PRN PRN Reason: Pain Score 1-10/Temp > 100.7 F Last Admin: 07/17/20 08:44 Dose: 650 mg Documented by: Albuterol Sulfate (Albuterol 2.5 Mg/3 Ml Vial.Neb.) 2.5 mg INHALATION Q2H PRN PRN PRN Reason: SHORTNESS OF BREATH Albuterol/Ipratropium (Ipratropium/Albuterol Sulfate 3 Ml Ampul.Neb) 3 ml INHALATION Q4HWA.RT [facility] Last Admin: 07/17/20 11:07 Dose: 3 ml Documented by: Aspirin (Aspirin 81 Mg Tab.Chew) 81 mg PO DAILY@0800 [facility] Last Admin: 07/17/20 08:45 Dose: 81 mg Documented by: Atorvastatin Calcium (Atorvastatin Calcium 40 Mg Tablet) 40 mg PO QHS [facility] Last Admin: 07/16/20 22:30 Dose: 40 mg Documented by: Clonazepam (Clonazepam 1 Mg Tablet) 1 mg PO TID PRN PRN PRN Reason: ANXIETY Last Admin: 07/16/20 22:41 Dose: 1 mg Documented by: Dextrose (Dextrose 50%-Water 25 Gm/50 Ml Disp.Syrin) 0 gm IV X1 PRN; Protocol PRN Reason: Hypoglycemia Glucagon (Glucagon 1 Mg/Ml Syringe) 1 mg IM .X1 PRN PRN Reason: Hypoglycemia Sodium Chloride () 1,000 mls @ 15 mls/hr IV .Q48H [facility] Last Admin: 07/16/20 08:47 Dose: Not Given Documented by: Insulin Glargine (Insulin Glargine 100 Units/Ml Pen) 40 units SC 1100,2200 [facility] Last Admin: 07/17/20 10:44 Dose: 40 unit Documented by: Insulin Human Lispro (Insulin Lispro 100 Unit/Ml Insuln.Pen) 0 unit SC ACHS [facility]; Protocol Last Admin: 07/17/20 06:50 Dose: 4 units Documented by: Metoprolol Tartrate (Metoprolol Tartrate 25 Mg Tablet) 25 mg PO BID [facility] Last Admin: 07/17/20 10:43 Dose: Not Given Documented by: Ondansetron HCl (Ondansetron 4 Mg/2 Ml Vial) 4 mg IV Q8H PRN PRN PRN Reason: NAUSEA/VOMITING Polyethylene Glycol (Polyethylene Glycol 3350 17 Gm Packet) 17 gm PO DAILY [facility] Last Admin: 07/17/20 10:43 Dose: 17 gm Documented by: Prednisone (Prednisone 20 Mg Tablet) 40 mg PO DAILY@0800 [facility] Stop: 07/20/20 08:01 Last Admin: 07/17/20 08:45 Dose: 40 mg Documented by: Sodium Chloride (0.9% Saline Lock 10 Ml Syringe) 10 - 40 ml IV UD PRN PRN Reason: SALINE FLUSH Last Admin: 07/15/20 21:14 Dose: 10 ml Documented by: Ticagrelor (Ticagrelor 90 Mg Tablet) 90 mg PO BID [facility] Last Admin: 07/17/20 08:45 Dose: 90 mg Documented by: STROKE Vital Signs/Narrative: Vital Signs Temp Pulse Resp BP Pulse Ox 07/17/20 10:59 57 L 07/17/20 10:04 36.4 C L 55 L 18 149/68 H 97 07/17/20 08:40 36.4 C L 58 L 18 146/67 H 98 Medical Necessity - Tobacco Use Smoking Status: Former smoker Tobacco Use: Non-smoker Assessment/Plan All Active Problems (Last Reviewed 07/13/20 @ 08:[address] Moise Krishnamurthy, DO) Acute respiratory failure (Acute) Acute respiratory acidosis (Acute) Elevated troponin (Acute) Left bundle branch block (Acute) NSTEMI (non-ST elevated myocardial infarction) (Acute) Pulmonary edema (Acute) (HFpEF) heart failure with preserved ejection fraction (Acute) Acute respiratory failure with hypoxia and hypercapnia (Acute) Debility (Acute) 1. Acute hypoxic and hypercapnic respiratory failure Improved, now room air Likely multifactorial due to CHF and the patient's known history of COPD 2. Acute heart failure with reduced ejection fraction Clinically improved EF 65% from echocardiogram on 04/03/2019, now down to 25%. suspect flash pulmonary edema Suspect ischemic cardiomyopathy Plan * Supportive mgmt at this time * Furosemide and lisinopril held given KIT, but as creatinine has improved will resume oral furosemide 3. Non-ST elevation myocardial infarction New low bundle-branch block, least from 2018 Troponins peaked at 90.5 Plan * Hold off on beta-urszula given the acute CHF but also with patient's known history of severe large airway obstructive disease * 07/14: NANCY Leon, given KIT, hold on cardiac cath for now. * ticagrelor. loaded on . * Plan for left heart catheterization on the 4. KIT 2/2 ATN from contrast nephropathy Improving FEUrea 10.9%, consistent with prerenal 5. possibe acute COPD I doubt an acute exacerbation at this time but difficult to tease out definitively Plan * Bronchodilators * prednisone burst 07/16-, then stop 6. History of VTE Currently anticoagulated his INR is 2.8. Warfarin currently being held anticipation of a cardiac catheterization on the . INR still trending up despite not receiving warfarin since admission. No evidence of bleeding. continue to monitor. 7. Diabetes mellitus type 2 Uncontrolled, likley exacerbated by steroids and physiologic stressors Last A1c was 8.5 from January 28 Plan * Sliding scale insulin * Glargine and add prandial * increase glargine to 40 BID, monitor after prednisone stopped 8. VTE prophylaxis: Not indicated this patient is already anticoagulated 9. Advanced care planning: rediscussed today. DNRCCA, with intubation, if necessary. Inpatient E&M: 12864 Subs Hosp L2
[2020-07-17 12:01] LABS: Bedside Glucose 269 mg/dL (70-110)
[2020-07-17] MEDS: Furosemide 40 MG Tablet PO (12:06)
--- NOTE | 2020-07-17 13:41 | PCM.PN.CARD ---
Objective: Vital Signs Temp Pulse Resp BP Pulse Ox 97.5 F L 56 L 16 149/68 H 97 07/17/20 10:04 07/17/20 11:07 07/17/20 11:07 07/17/20 10:04 07/17/20 10:04 Oxygen Flow Rate (L/min) 2 Oxygen Delivery Method Room Air Weight: 209 lb 7.026 oz Body Mass Index (BMI) 36.7 Finger Stick Blood Glucose 241 Intake and Output for Last 24 Hours 07/15/20 07/16/20 07/17/20 23:59 23:59 23:59 Intake Total 777.5 / 777.5 900 / 1700 1200 / 1200 Output Total 1450 / 1450 2025 / 2500 1974 / 1974 Balance -672.5 / -672.5 -1125 / -800 -775 / -775 General: Awake, Alert, Oriented x 3 HEENT: PERRL, EOMI, Sclera Non Icteric Neck: Supple, Good ROM, No Lymph Node Enlargement Lungs: Clear to auscultation Cardiovascular: Regular Rhythm, Normal S1, Normal S2, No Murmurs, No Rubs, No Gallops Abdomen: Bowel Sounds Present, Soft, Non Tender, No HSM, No Organomegaly Extremities: No Cyanosis, No Clubbing, No edema Neurological: No Focal Motor or Sensory Deficit 07/17/20 07:00: Sodium 142, Potassium 4.0, Chloride 108 H, Carbon Dioxide 29.0, Anion Gap 5, BUN 65 H, Creatinine 1.60 H, Est GFR (MDRD) Af Amer 40 L, Est GFR (MDRD) Non-Af 33 L, BUN/Creatinine Ratio 40.6 H, Glucose 201 H, Calcium 8.6 Rhythm: Normal sinus rhythm EKG: Left bundle branch block. Medical Necessity - Tobacco Use Smoking Status: Former smoker Tobacco Use: Non-smoker Assessment/Plan 75-year-old patient seen and evaluated today along with the nursing staff at bedside She had symptoms of shortness of breath. This patient had symptoms of shortness of breath and new left bundle branch block with the acute systolic heart failure ejection fraction around 30 She could CKD, COPD, diabetes, hypertension and also she was on anticoagulation with Coumadin because of recent DVT Patient still had mild symptoms of shortness of breath. Assessment and plan; 1. Creatinine today is 1.6 and INR is still 2.1 We will continue to monitor renal function and INR Patient had non-ST elevation IN, with acute systolic heart failure and new left bundle branch block And multiple medical other comorbidities as described Scheduled for cardiac catheterization on Sunday by review her current medication is a nursing staff and will continue to monitor over the weekend. Clinically
[2020-07-17 14:46] LABS: International Normalized Ratio 1.5; Prothrombin Time (Protime)PT. 17.6 SECONDS (11.7-14.9)
[2020-07-17] MEDS: clonazePAM 1 MG Tablet PO (14:55)
[2020-07-17 16:56] LABS: Bedside Glucose 369 mg/dL (70-110)
[2020-07-17] MEDS: Atorvastatin Calcium 40 MG Tablet PO (22:43)
[2020-07-17 23:41] LABS: Bedside Glucose 342 mg/dL (70-110)
[2020-07-18] VITALS (17 sets, daily range): BP systolic 129–164; BP diastolic 47–64; PULSE 51–129; RESP 16–24; TEMP 36.4–37.1; O2SAT 94–97
[2020-07-18] MEDS: Ipratropium/Albuterol Sulfate 3 ML AMPUL.NEB INHALATION ×5 (03:22→18:47)
[2020-07-18] MEDS: clonazePAM 1 MG Tablet PO ×3 (03:43→21:52)
[2020-07-18] MEDS: Insulin Lispro 100 UNIT/ML INSULN.PEN SC ×4 (06:42→21:28)
[2020-07-18 06:49] LABS: International Normalized Ratio 1.4; Prothrombin Time (Protime)PT. 16.6 SECONDS (11.7-14.9)
[2020-07-18 07:01] LABS: Anion Gap 6 (5-15); BUN 58 mg/dL (7-18); BUN/Creat Ratio 42.3 RATIO (10-20); Calcium,Total 8.9 mg/dL (8.5-10.1); Chloride 106 mmol/L (98-107); Creatinine, Serum 1.37 mg/dL (0.55-1.02); EST Glomerular Filtration Rate 40 mL/min (>60); Est Glom Filt Rate - Afr Amer 48 mL/min (>60); Estimated Creatinine Clearance 30.17 ml/min; Glucose 211 mg/dL (74-106); Potassium 4.3 mmol/L (3.5-5.1); Sodium Level 139 mmol/L (136-145)
[2020-07-18 07:06] LABS: Bedside Glucose 182 mg/dL (70-110)
[2020-07-18] MEDS: Aspirin 81 MG TAB.CHEW PO (08:17)
[2020-07-18] MEDS: predniSONE 20 MG Tablet 40 MG PO (08:17)
[2020-07-18] MEDS: Enoxaparin 100 MG/ML Syringe 90 MG SC ×2 (08:18→16:57)
--- NOTE | 2020-07-18 09:54 | PCM.PN.HOSP ---
Patient Problems: Active and Suspected Problems (Last Reviewed 07/13/20 @ 08:[address] Moise Krishnamurthy, DO) Acute respiratory failure (Acute) Acute respiratory acidosis (Acute) Elevated troponin (Acute) Left bundle branch block (Acute) NSTEMI (non-ST elevated myocardial infarction) (Acute) Pulmonary edema (Acute) (HFpEF) heart failure with preserved ejection fraction (Acute) Acute respiratory failure with hypoxia and hypercapnia (Acute) Debility (Acute) Subjective: Feels well. No SOB. Vitals/I&O's: Vital Signs Temp Pulse Resp BP Pulse Ox 37.1 C 59 L 16 137/47 H 95 07/18/20 04:31 07/18/20 06:45 07/18/20 06:45 07/18/20 04:31 07/18/20 06:45 Oxygen Flow Rate (L/min) 2 Oxygen Delivery Method Room Air Weight: 92.5 kg Body Mass Index (BMI) 36.7 Finger Stick Blood Glucose 241 Intake and Output for Last 24 Hours 07/16/20 07/17/20 07/18/20 23:59 23:59 23:59 Intake Total 900 / 1700 1750 / 1750 300 / 300 Output Total 2025 / 2500 4175 / 4175 900 / 900 Balance -1125 / -800 -2425 / -2425 -600 / -600 General: Alert, No apparent distress HEENT: Atraumatic, Normocephalic Neck: No Nodes, Thyroid Normal Size and Texture Lungs: Clear to auscultation, Normal air movement, No rhonchi, No wheeze Cardiovascular: Regular rate, Regular Rhythm, Normal S1, Normal S2 Abdomen: Bowel Sounds Present, Soft, Non Tender, Non-Distended, No Hepato-splenomegaly Extremities: No edema, No Calf Tenderness Psych/Mental Status: Normal Affect, Appropriate Microbiology Past 72 Hours 07/13/20 03:20 Blood Culture (Wb) #2 - Anticubital Right Blood Culture - Final No growth in 5 days. 07/13/20 03:12 Blood Culture (Wb) - Anticubital Left Blood Culture - Final No growth in 5 days. Laboratory Results 07/17/20 11:50: POC Glucose 269 H 07/17/20 14:25: PT 17.6 H, INR 1.5 07/17/20 16:48: POC Glucose 369 H 07/17/20 22:39: POC Glucose 342 H 07/18/20 05:05: PT 16.6 H, INR 1.4 07/18/20 05:05: Sodium 139, Potassium 4.3, Chloride 106, Carbon Dioxide 27.0, Anion Gap 6, BUN 58 H, Creatinine 1.37 H, Estim Creat Clear Calc 30.17, Est GFR (MDRD) Af Amer 48 L, Est GFR (MDRD) Non-Af 40 L, BUN/Creatinine Ratio 42.3 H, Glucose 211 H, Calcium 8.9 07/18/20 06:41: POC Glucose 182 H Current Medications Acetaminophen (Acetaminophen 325 Mg Tablet) 650 mg PO Q6H PRN PRN PRN Reason: Pain Score 1-10/Temp > 100.7 F Last Admin: 07/17/20 16:53 Dose: 650 mg Documented by: Albuterol Sulfate (Albuterol 2.5 Mg/3 Ml Vial.Neb.) 2.5 mg INHALATION Q2H PRN PRN PRN Reason: SHORTNESS OF BREATH Albuterol/Ipratropium (Ipratropium/Albuterol Sulfate 3 Ml Ampul.Neb) 3 ml INHALATION Q4HWA.RT [facility] Last Admin: 07/18/20 06:41 Dose: 3 ml Documented by: Aspirin (Aspirin 81 Mg Tab.Chew) 81 mg PO DAILY@0800 [facility] Last Admin: 07/18/20 08:17 Dose: 81 mg Documented by: Atorvastatin Calcium (Atorvastatin Calcium 40 Mg Tablet) 40 mg PO QHS [facility] Last Admin: 07/17/20 22:43 Dose: 40 mg Documented by: Clonazepam (Clonazepam 1 Mg Tablet) 1 mg PO TID PRN PRN PRN Reason: ANXIETY Last Admin: 07/18/20 03:43 Dose: 1 mg Documented by: Dextrose (Dextrose 50%-Water 25 Gm/50 Ml Disp.Syrin) 0 gm IV X1 PRN; Protocol PRN Reason: Hypoglycemia Enoxaparin Sodium (Enoxaparin 100 Mg/Ml Syringe) 90 mg 1 mg/kg (90 mg) SC Q12@0600,1800 [facility] Stop: 07/18/20 18:01 Furosemide (Furosemide 40 Mg Tablet) 40 mg PO DAILY [facility] Glucagon (Glucagon 1 Mg/Ml Syringe) 1 mg IM .X1 PRN PRN Reason: Hypoglycemia Sodium Chloride () 1,000 mls @ 15 mls/hr IV .Q48H [facility] Last Admin: 07/18/20 06:44 Dose: Not Given Documented by: Insulin Glargine (Insulin Glargine 100 Units/Ml Pen) 40 units SC 1100,2200 [facility] Last Admin: 07/17/20 22:40 Dose: 40 unit Documented by: Insulin Human Lispro (Insulin Lispro 100 Unit/Ml Insuln.Pen) 0 unit SC ACHS [facility]; Protocol Last Admin: 07/18/20 06:42 Dose: 2 units Documented by: Metoprolol Tartrate (Metoprolol Tartrate 25 Mg Tablet) 25 mg PO BID [facility] Last Admin: 07/17/20 23:45 Dose: Not Given Documented by: Ondansetron HCl (Ondansetron 4 Mg/2 Ml Vial) 4 mg IV Q8H PRN PRN PRN Reason: NAUSEA/VOMITING Polyethylene Glycol (Polyethylene Glycol 3350 17 Gm Packet) 17 gm PO DAILY [facility] Last Admin: 07/17/20 10:43 Dose: 17 gm Documented by: Prednisone (Prednisone 20 Mg Tablet) 40 mg PO DAILY@0800 [facility] Stop: 07/20/20 08:01 Last Admin: 07/18/20 08:17 Dose: 40 mg Documented by: Sodium Chloride (0.9% Saline Lock 10 Ml Syringe) 10 - 40 ml IV UD PRN PRN Reason: SALINE FLUSH Last Admin: 07/15/20 21:14 Dose: 10 ml Documented by: Ticagrelor (Ticagrelor 90 Mg Tablet) 90 mg PO BID [facility] Last Admin: 07/17/20 22:43 Dose: 90 mg Documented by: STROKE Vital Signs/Narrative: Vital Signs Pulse Resp Pulse Ox 07/18/20 06:45 59 L 16 95 07/18/20 06:34 58 L Medical Necessity - Tobacco Use Smoking Status: Former smoker Tobacco Use: Non-smoker Assessment/Plan All Active Problems (Last Reviewed 07/13/20 @ 08:[address] Moise Krishnamurthy DO) Acute respiratory failure (Acute) Acute respiratory acidosis (Acute) Elevated troponin (Acute) Left bundle branch block (Acute) NSTEMI (non-ST elevated myocardial infarction) (Acute) Pulmonary edema (Acute) (HFpEF) heart failure with preserved ejection fraction (Acute) Acute respiratory failure with hypoxia and hypercapnia (Acute) Debility (Acute) 35-year-old white female presents with chest pain and shortness of breath. Patient was found to be in flash pulmonary edema as well as with a non-ST elevation myocardial infarction with a peak troponin of 90.5. Course complicated by acute kidney injury presumably due to contrast nephropathy. Overall, the patient is much improved. Due to the contrast nephropathy patient could not immediately get a left heart catheterization but the plan is for left heart catheterization on the 1. Acute hypoxic and hypercapnic respiratory failure Improved, now room air Likely multifactorial due to CHF and the patient's known history of COPD 2. Acute heart failure with reduced ejection fraction Clinically improved EF 65% from echocardiogram on 04/03/2019, now down to 25%. suspect flash pulmonary edema Suspect ischemic cardiomyopathy Plan Supportive mgmt at this time Furosemide and lisinopril held given KIT, but as creatinine has improved will resume oral furosemide 3. Non-ST elevation myocardial infarction New low bundle-branch block, least from 2018 Troponins peaked at 90.5 Plan Hold off on beta-urszula given the acute CHF but also with patient's known history of severe large airway obstructive disease 07/14: NANCY Leon, given KIT, hold on cardiac cath for now. ticagrelor. loaded on . Plan for left heart catheterization on the 4. KIT 2/2 ATN from contrast nephropathy Improving FEUrea 10.9%, consistent with prerenal 5. possibe acute COPD I doubt an acute exacerbation at this time but difficult to tease out definitively Plan Bronchodilators prednisone burst 07/16-, then stop 6. History of VTE Currently anticoagulated his INR is 2.8. Warfarin currently being held anticipation of a cardiac catheterization on the . INR still trending up despite not receiving warfarin since admission. No evidence of bleeding. continue to monitor. Will give Enoxaparin weight based for today, then hold for LHC on . 7. Diabetes mellitus type 2 Uncontrolled, likley exacerbated by steroids and physiologic stressors Last A1c was 8.5 from January 28 Plan Sliding scale insulin Glargine and add prandial increase glargine to 40 BID, monitor after prednisone stopped 8. VTE prophylaxis: Not indicated this patient is already anticoagulated 9. Advanced care planning: DNRCCA, with intubation, if necessary. Inpatient E&M: [id number] [facility] Hosp L2
[2020-07-18] MEDS: Polyethylene Glycol 3350 17 GM PACKET PO (09:57)
[2020-07-18] MEDS: TICAGRELOR 90 MG TABLET PO ×2 (09:57→21:27)
[2020-07-18] MEDS: Metoprolol Tartrate 25 MG Tablet PO ×2 (09:57→21:27)
[2020-07-18] MEDS: Furosemide 40 MG Tablet PO (10:01)
--- NOTE | 2020-07-18 10:02 | PCM.PN.BLA ---
Progress Note KIT from contrast nephropathy. Underlying CKD stage 3 due to diabetic, hypertensive nephropathy. Creatinine improved from 2.7 to 1.3. Ischemic CMP, NSTEMI with cath planned for 07/19. Recommend gentle hydration prior and post cath and minimize contrast volume to decrease risk of contrast nephropathy. STROKE Vital Signs/Narrative: Vital Signs Temp Pulse Resp BP Pulse Ox 07/18/20 09:55 97.8 F 71 18 164/63 H 97 07/18/20 06:45 59 L 16 95 07/18/20 06:34 58 L
--- NOTE | 2020-07-18 11:15 | PCM.PN.CARD ---
Objective: Vital Signs Temp Pulse Resp BP Pulse Ox 97.8 F 71 18 164/63 H 97 07/18/20 09:55 07/18/20 09:57 07/18/20 09:55 07/18/20 09:57 07/18/20 09:55 Oxygen Flow Rate (L/min) 2 Oxygen Delivery Method Room Air Weight: 203 lb 14.841 oz Body Mass Index (BMI) 36.7 Finger Stick Blood Glucose 241 Intake and Output for Last 24 Hours 07/16/20 07/17/20 07/18/20 23:59 23:59 23:59 Intake Total 900 / 1700 1750 / 1750 300 / 300 Output Total 2025 / 2500 4175 / 4175 900 / 900 Balance -1125 / -800 -2425 / -2425 -600 / -600 General: Awake, Alert, Oriented x 3 HEENT: PERRL, EOMI, Sclera Non Icteric Neck: Supple, Good ROM, No Lymph Node Enlargement Lungs: Clear to auscultation Cardiovascular: Regular Rhythm, Normal S1, Normal S2, No Murmurs, No Rubs, No Gallops Abdomen: Bowel Sounds Present, Soft, Non Tender, No HSM, No Organomegaly Extremities: No Cyanosis, No Clubbing, No edema Musculoskeletal: No Erythema Neurological: No Focal Motor or Sensory Deficit Psych/Mental Status: Appropriate 07/17/20 14:25: PT 17.6 H, INR 1.5 07/18/20 05:05: PT 16.6 H, INR 1.4 07/18/20 05:05: Sodium 139, Potassium 4.3, Chloride 106, Carbon Dioxide 27.0, Anion Gap 6, BUN 58 H, Creatinine 1.37 H, Est GFR (MDRD) Af Amer 48 L, Est GFR (MDRD) Non-Af 40 L, BUN/Creatinine Ratio 42.3 H, Glucose 211 H, Calcium 8.9 Rhythm: EKG: ECHO: Stress Test: Cardiac Cath: PCI: CT Surgery: Holter monitor: EPS: PPM: CXR: Chest CT Scan: Medical Necessity - Tobacco Use Smoking Status: Former smoker Tobacco Use: Non-smoker Assessment/Plan 5-year-old patient seen and evaluated today at bedside along with the nursing staff She had no symptoms of chest pain to report. Patient with history of CAD, non-ST elevation myocardial infarction Severe LV dysfunction ejection fraction around 30% Assessment and plan;. 1. Noted improvement in renal function with a creatinine today is 1.37 and INR is 1.4. 2. Schedule for left heart cath by Dr. Leon in a.m. 3. Discussed all cardiac medication and also answer all question related to cardiac arrest.
[2020-07-18 11:26] LABS: Bedside Glucose 190 mg/dL (70-110)
[2020-07-18 18:11] LABS: Bedside Glucose 403 mg/dL (70-110)
[2020-07-18] MEDS: Atorvastatin Calcium 40 MG Tablet PO (21:27)
[2020-07-18] MEDS: 0.9% Saline Lock 10 ML Syringe IV (21:27)
[2020-07-18 21:40] LABS: Bedside Glucose 338 mg/dL (70-110)
[2020-07-19] VITALS (20 sets, daily range): BP systolic 101–160; BP diastolic 53–87; PULSE 46–58; RESP 14–18; TEMP 36.2–36.7; O2SAT 93–97
--- NOTE | 2020-07-19 05:00 | EKG12_ITS ---
Test Reason : AM EKG Blood Pressure : / mmHG Vent. Rate : 050 BPM Atrial Rate : 050 BPM P-R Int : 150 ms QRS Dur : 154 ms QT Int : 482 ms P-R-T Axes : 071 -29 -88 degrees QTc Int : 439 ms Sinus bradycardia Left bundle branch block Abnormal ECG When compared with ECG of 16-JUL-2020 05:05, MANUAL COMPARISON REQUIRED, DATA IS UNCONFIRMED Confirmed by LEE TORRES, LIZETTE ([id number]), greeting card editor MICHAEL BARROSO ([id number]) on 07/20/2020 9:08:48 AM Referred By: BARBARA Confirmed By:LIZETTE HOWARD MD
[2020-07-19] MEDS: Aspirin 81 MG TAB.CHEW PO (05:49)
[2020-07-19 05:50] LABS: Bedside Glucose 126 mg/dL (70-110)
[2020-07-19] MEDS: TICAGRELOR 90 MG TABLET PO (05:50)
[2020-07-19] MEDS: 0.9% Normal Saline 1,000 ML 15 ML IV (05:54)
[2020-07-19 06:56] LABS: International Normalized Ratio 1.2; Prothrombin Time (Protime)PT. 14.6 SECONDS (11.7-14.9)
[2020-07-19] MEDS: Ipratropium/Albuterol Sulfate 3 ML AMPUL.NEB INHALATION ×3 (06:56→14:37)
[2020-07-19 07:09] LABS: Anion Gap 8 (5-15); BUN 62 mg/dL (7-18); BUN/Creat Ratio 43.7 RATIO (10-20); Calcium,Total 8.9 mg/dL (8.5-10.1); Chloride 103 mmol/L (98-107); Creatinine, Serum 1.42 mg/dL (0.55-1.02); EST Glomerular Filtration Rate 38 mL/min (>60); Est Glom Filt Rate - Afr Amer 46 mL/min (>60); Glucose 120 mg/dL (74-106); Potassium 4.2 mmol/L (3.5-5.1); Sodium Level 140 mmol/L (136-145)
--- NOTE | 2020-07-19 10:00 | PN.CARD_ITS ---
Subjectve: Patient seen and evaluated. Appears to be doing well. Underwent cardiac catheterization today. Objective: Vital Signs Temp Pulse Resp BP Pulse Ox 97.1 F L 52 L 18 142/71 H 96 07/19/20 05:45 07/19/20 07:00 07/19/20 06:56 07/19/20 05:45 07/19/20 06:56 Oxygen Flow Rate (L/min) 2 Oxygen Delivery Method Room Air Weight: 201 lb 0.985 oz Body Mass Index (BMI) 36.7 Finger Stick Blood Glucose 241 Intake and Output for Last 24 Hours 07/17/20 07/18/20 07/19/20 23:59 23:59 23:59 Intake Total 1750 / 1750 1100 / 1580 540 / 540 Output Total 4175 / 4175 2850 / 3400 1250 / 1250 Balance -2425 / -2425 -1750 / -1820 -710 / -710 General: Awake, Alert, Oriented x 3 HEENT: PERRL, EOMI, Sclera Non Icteric Neck: Supple, Good ROM, No Lymph Node Enlargement Lungs: Clear to auscultation Cardiovascular: Regular Rhythm, Normal S1, Normal S2, No Murmurs, No Rubs, No Gallops 07/19/20 05:50: PT 14.6, INR 1.2 07/19/20 05:50: Sodium 140, Potassium 4.2, Chloride 103, Carbon Dioxide 29.0, Anion Gap 8, BUN 62 H, Creatinine 1.42 H, Est GFR (MDRD) Af Amer 46 L, Est GFR (MDRD) Non-Af 38 L, BUN/Creatinine Ratio 43.7 H, Glucose 120 H, Calcium 8.9 Rhythm: EKG: ECHO: Stress Test: Cardiac Cath: PCI: CT Surgery: Holter monitor: EPS: PPM: CXR: Chest CT Scan: Medical Necessity - Tobacco Use Smoking Status: Former smoker Tobacco Use: Non-smoker Assessment/Plan 1. Non-ST elevation myocardial infarction * Patient presents with shortness of breath and is noted to have a new left bundle branch block and cardiac enzymes consistent with a non-ST elevation myocardial infarction. * Cardiac catheterization demonstrated the following: Calcified left main coronary artery with ostial high-grade stenosis and distal high-grade stenosis. Left anterior descending artery with ostial 80% stenosis and a calcified vessel. Left circumflex artery with ostial 80% stenosis. Totally occluded right coronary artery with [id number] collaterals. Left ventricular systolic dysfunction with estimated EF of 30%. EDP is noted to be normal. Based on the above angiographic findings the patient will be transferred to a tertiary care facility for consideration for bypass surgery. 2. Acute congestive heart failure-systolic * Patient presents with acute shortness of breath and is noted to be in congestive heart failure. * Will institute intravenous nitroglycerin as well as intravenous Lasix * Echocardiogram performed in process demonstrates reduced left ventricular systolic function * Will start beta-urszula and continue * 3. Hypertension * Her blood pressure appears to be better controlled at this time on the intravenous nitroglycerin. * 4. Left bundle branch block * This appears to be new and likely secondary to coronary artery disease. * Will continue to observe for now * * * * Thank you for allowing me to participate in the care of your patient. Please don't hesitate to call if any issues arise.
--- NOTE | 2020-07-19 10:09 | CL.D_ITS ---
Patient Name: VAMSHI MARTIN Study Date: 07/19/2020 Performing: Rey Leon MD Ht: 65 inches 165 cm : 1945 Wt: 200.9 lbs 91 kg Age: 75 Gender: female BSA: 1.98 PROCEDURE(S) PERFORMED HL19-KVX/COR/LV CLINICAL PROFILE AND INDICATIONS Indications: Suspected CAD Heart Failure: None Stress/Imaging Stress/Image Study Performed: No CAD Presentations: Non-STEMI. Symptom onset Date/Time: 07/13/20 3:16:21 CONCLUSIONS Severe triple-vessel disease including severe distal left main coronary artery stenosis, severe ostia l proximal LAD and circumflex artery stenosis and left to right collaterals. Good distal targets of vessels noted. Severe left ventricular systolic dysfunction. RECOMMENDATIONS Surgery consult for coronary revascularization DESCRIPTION OF PROCEDURE The patient arrived to the procedure lab. The risks and benefits of the procedure as well as a full d escription of our services here and current unavailability of surgical backup were fully explained to the patient and/or their significant other prior to the catheterization. The Timeout was completed, verifying the correct patient and procedure. The patient's procedural site was prepped and draped in the usual fashion. Local anesthetic was given subcutaneously to right radial region with Lidocaine 2% . Using a modified Seldinger technique, arterial access was obtained via the right radial artery, a 6 Fr sheath was inserted. Left Coronary Artery selective angiography was performed in multiple views u sing a 5 Fr. 4.0 [place] catheter. Left Ventriculography was performed in ODOM projection using a 5 Fr. Pig[place] catheter. LV to AO pullback pressures were then recorded.The arterial sheath was pulled and a TR Band was applied for hemostasis CORONARY ANGIOGRAPHY DOMINANCE: Right Dominant LEFT HEART ASSESSMENT Left Ventricular Ejection Fraction: by LV Gram 25 % Global Hypokinesis - Severe. Inferior Mid Akinesis Depressed Left Ventricular systolic function LEFT MAIN: Moderate calcification, Ostial 50% and distal 70% stenosis LEFT ANTERIOR DESCENDING ARTERY: Moderate calcification OSTIAL LAD: 80 % Stenosis MID LAD: Mild luminal irregularities less than 30% CIRCUMFLEX ARTERY: Mild luminal irregularities less than 30% OSTIAL CIRC: 70 % Stenosis RIGHT CORONARY ARTERY: PROX RCA: is occluded COLLATERAL FLOW: Collateral flow from Left to Right COMPLICATIONS No Complications PROCEDURE MEDICATIONS Versed 1 mg IV Fentanyl 50 mcg IV Oxygen: 2 L/min via nasal cannula Heparin given IA 07/19/2020 09:36:29 Verapamil 2.5mg, Ntg 100mcgs, 2000 units of Heparin given IA 07/19/2020 09:36:29 SUMMARY OF HEMODYNAMIC DATA Time AIR REST ECG 09:20:45 AO 125/63 (86) SA 09:41:07 LV 135/15, 0 09:49:28 LV 137/11, 11 09:49:35 LV 135/13, 15 09:50:58 LV 132/13, 14 09:51:05 LVp 130/20, 45 09:51:13 AOp 136/59 (88) 09:51:18 Signed By Rey Leon MD On 07/19/2020 10:09:12 AM Rey Leon MD
[2020-07-19] MEDS: 0.9% Normal Saline 1,000 ML 75 ML IV (10:35)
--- NOTE | 2020-07-19 11:41 | PN.RENAL_ITS ---
Patient Problems: Active and Suspected Problems (Last Reviewed 07/13/20 @ 08:[address] Moise Krishnamurthy, DO) Acute respiratory failure (Acute) Acute respiratory acidosis (Acute) Elevated troponin (Acute) Left bundle branch block (Acute) NSTEMI (non-ST elevated myocardial infarction) (Acute) Pulmonary edema (Acute) (HFpEF) heart failure with preserved ejection fraction (Acute) Acute respiratory failure with hypoxia and hypercapnia (Acute) Debility (Acute) Subjective: return from heart cath. No chest pain or SOB. Creatinine 1.4 today precath. Plan for transfer to [facility] for CABG. Pt dtr at bedside. - Physical Exam Vitals/I&O's: Vital Signs Temp Pulse Resp BP Pulse Ox 97.1 F L 52 L 16 147/58 H 97 07/19/20 05:45 07/19/20 11:34 07/19/20 11:15 07/19/20 11:15 07/19/20 11:15 Oxygen Flow Rate (L/min) 2 Oxygen Delivery Method Room Air Weight: 91.2 kg Body Mass Index (BMI) 36.7 Finger Stick Blood Glucose 241 Intake and Output for Last 24 Hours 07/17/20 07/18/20 07/19/20 23:59 23:59 23:59 Intake Total 1750 / 1750 1100 / 1580 610.5 / 610.5 Output Total 4175 / 4175 2850 / 3400 1250 / 1250 Balance -2425 / -2425 -1750 / -1820 -639.5 / -639.5 General: Alert, Oriented x3, Cooperative, No apparent distress Lungs: Clear to auscultation Cardiovascular: Regular rate Abdomen: Bowel Sounds Present, Soft, Non Tender, Non-Distended Extremities: No edema Psych/Mental Status: Alert and oriented to time, place, person, mood and affect Microbiology Past 72 Hours 07/13/20 03:20 Blood Culture (Wb) #2 - Anticubital Right Blood Culture - Final No growth in 5 days. 07/13/20 03:12 Blood Culture (Wb) - Anticubital Left Blood Culture - Final No growth in 5 days. Laboratory Results 07/18/20 16:56: POC Glucose 403 H 07/18/20 21:26: POC Glucose 338 H 07/19/20 05:44: POC Glucose 126 H 07/19/20 05:50: PT 14.6, INR 1.2 07/19/20 05:50: Sodium 140, Potassium 4.2, Chloride 103, Carbon Dioxide 29.0, Anion Gap 8, BUN 62 H, Creatinine 1.42 H, Estim Creat Clear Calc 29.10, Est GFR (MDRD) Af Amer 46 L, Est GFR (MDRD) Non-Af 38 L, BUN/Creatinine Ratio 43.7 H, Glucose 120 H, Calcium 8.9 Current Medications Acetaminophen (Acetaminophen 325 Mg Tablet) 650 mg PO Q6H PRN PRN PRN Reason: Pain Score 1-10/Temp > 100.7 F Last Admin: 07/17/20 16:53 Dose: 650 mg Documented by: Albuterol Sulfate (Albuterol 2.5 Mg/3 Ml Vial.Neb.) 2.5 mg INHALATION Q2H PRN PRN PRN Reason: SHORTNESS OF BREATH Albuterol/Ipratropium (Ipratropium/Albuterol Sulfate 3 Ml Ampul.Neb) 3 ml INHALATION Q4HWA.RT [facility] Last Admin: 07/19/20 10:40 Dose: 3 ml Documented by: Aspirin (Aspirin 81 Mg Tab.Chew) 81 mg PO DAILY@0800 [facility] Last Admin: 07/19/20 05:49 Dose: 81 mg Documented by: Atorvastatin Calcium (Atorvastatin Calcium 40 Mg Tablet) 40 mg PO QHS [facility] Last Admin: 07/18/20 21:27 Dose: 40 mg Documented by: Clonazepam (Clonazepam 1 Mg Tablet) 1 mg PO TID PRN PRN PRN Reason: ANXIETY Last Admin: 07/18/20 21:52 Dose: 1 mg Documented by: Dextrose (Dextrose 50%-Water 25 Gm/50 Ml Disp.Syrin) 0 gm IV X1 PRN; Protocol PRN Reason: Hypoglycemia Furosemide (Furosemide 40 Mg Tablet) 40 mg PO DAILY [facility] Last Admin: 07/18/20 10:01 Dose: 40 mg Documented by: Glucagon (Glucagon 1 Mg/Ml Syringe) 1 mg IM .X1 PRN PRN Reason: Hypoglycemia Sodium Chloride () 1,000 mls @ 15 mls/hr IV .Q48H [facility] Last Infusion: 07/19/20 10:36 Dose: 0 mls/hr Documented by: Sodium Chloride () 1,000 mls @ 75 mls/hr IV .[id number] [facility] Last Admin: 07/19/20 10:35 Dose: 75 mls/hr Documented by: Insulin Glargine (Insulin Glargine 100 Units/Ml Pen) 40 units SC 1100,2200 [facility] Last Admin: 07/19/20 11:34 Dose: Not Given Documented by: Insulin Human Lispro (Insulin Lispro 100 Unit/Ml Insuln.Pen) 0 unit SC ACHS [facility]; Protocol Last Admin: 07/19/20 11:33 Dose: Not Given Documented by: Metoprolol Tartrate (Metoprolol Tartrate 25 Mg Tablet) 25 mg PO BID [facility] Last Admin: 07/19/20 11:34 Dose: Not Given Documented by: Ondansetron HCl (Ondansetron 4 Mg/2 Ml Vial) 4 mg IV Q8H PRN PRN PRN Reason: NAUSEA/VOMITING Polyethylene Glycol (Polyethylene Glycol 3350 17 Gm Packet) 17 gm PO DAILY [facility] Last Admin: 07/18/20 09:57 Dose: 17 gm Documented by: Prednisone (Prednisone 20 Mg Tablet) 40 mg PO DAILY@0800 [facility] Stop: 07/20/20 08:01 Last Admin: 07/18/20 08:17 Dose: 40 mg Documented by: Sodium Chloride (0.9% Saline Lock 10 Ml Syringe) 10 - 40 ml IV UD PRN PRN Reason: SALINE FLUSH Last Admin: 07/18/20 21:27 Dose: 10 ml Documented by: Medical Necessity - Tobacco Use Smoking Status: Former smoker Tobacco Use: Non-smoker Assessment/Plan All Active Problems (Last Reviewed 07/13/20 @ 08:[address] Moise Krishnamurthy, DO) Acute respiratory failure (Acute) Acute respiratory acidosis (Acute) Elevated troponin (Acute) Left bundle branch block (Acute) NSTEMI (non-ST elevated myocardial infarction) (Acute) Pulmonary edema (Acute) (HFpEF) heart failure with preserved ejection fraction (Acute) Acute respiratory failure with hypoxia and hypercapnia (Acute) Debility (Acute) 1. Acute on CKD stage 3 due to ATN from contrast nephropathy. Creatinine improved to baseline 1.4. Scheduled for transfer to [facility] in [place] for CABG. Continue with iv fluids after cath to reduce risk of contrast nephropathy 2. NSTEMI troponin 90. EF 25%. s/p cath today 3. COPD with hypoxia, acute respiratory acidosis stable on RA 4. DM2 primary service mgmt 5. HTN stable 6. Hx tobacco use
[2020-07-19 11:45] LABS: Bedside Glucose 52 mg/dL (70-110)
[2020-07-19] MEDS: predniSONE 20 MG Tablet 40 MG PO (11:57)
[2020-07-19] MEDS: Furosemide 40 MG Tablet PO (11:57)
[2020-07-19] MEDS: clonazePAM 1 MG Tablet PO (11:57)
[2020-07-19 12:11] LABS: Bedside Glucose 123 mg/dL (70-110)
--- NOTE | 2020-07-19 13:03 | CASEMGMT ---
LINH called [facility] and let Judith know that patient is being transferred to [facility]. Xi VÁZQUEZ MSW
--- NOTE | 2020-07-19 14:01 | CASEMGMT ---
SOCIAL WORK Received call from Carolin with [facility] requesting update on patient. LIN[facility] notes reviewed and informed Carolin patient being transferred to [facility]. updated. Nikki Sofia. Sarabjit, DRILL FOREMAN, AIR EXPORT AGENT
[2020-07-19 17:06] LABS: Bedside Glucose 286 mg/dL (70-110)
--- NOTE | 2020-07-20 18:49 | PCM.DC.SUM ---
Discharge Date and Diagnosis - Problem List Patient Problems: Active and Suspected Problems (Last Updated 07/19/20 @ 13:10 by Maggy García) Elevated troponin (Acute) Left bundle branch block (Acute) NSTEMI (non-ST elevated myocardial infarction) (Acute 07/13/20) Pulmonary edema (Acute) (HFpEF) heart failure with preserved ejection fraction (Acute) Acute respiratory failure with hypoxia and hypercapnia (Acute) Debility (Acute) Date of Admission: 07/15/20 Date of Discharge: 07/19/20 - Primary Discharge Diagnosis Acute Problems: Active Problems (Last Updated 07/19/20 @ 13:10 by Maggy García) #1 non-ST elevation myocardial infarction #2 acute systolic congestive heart failure #3 obstructive coronary artery [id number] #4 essential hypertension #5 acute kidney injury #6 type 2 diabetes - poorly controlled #7 chronic kidney disease stage IIIb secondary to type 2 diabetes #8 moderate pulmonary hypertension #9 acute hypoxic and hypercapnic respiratory failure secondary to acute systolic congestive heart failure on an overlay of COPD #10 chronic obstructive pulmonary disease - Secondary Discharge Diagnosis Chronic Problems: Chronic Problems (Last Updated 07/19/20 @ 13:10 by Maggy García) Atherosclerotic heart disease of [place] coronary artery without angina pectoris (Chronic) COPD exacerbation (Chronic) Obesity (Chronic) Obesity (BMI 30-39.9) (Chronic) COPD exacerbation (Chronic) Allergic rhinitis (Chronic) Lung nodule (Chronic) 5.5 mm LLL Stage 2 moderate COPD by GOLD classification (Chronic) Menieres disease (Chronic) Gastroesophageal reflux disease with hiatal hernia (Chronic) Essential hypertension (Chronic) Dyslipidemia (Chronic) Diabetes mellitus, type 2 (Chronic) DVT of lower extremity (deep venous thrombosis) (Chronic) on coumadin Obesity (BMI 30-39.9) (Chronic) Depression (Chronic) Chronic renal failure, stage 3 (moderate) (Chronic) Anxiety disorder (Chronic) Hospital Course and Treatment Operations: None Procedures: 2-D Echocardiogram, Cardiac catheterization Summary of Care Provided: The patient is a 75 year old F who was seen in the emergency room at [facility] with chief complaint of chest pain and shortness of breath. Work-up in the emergency room included a CTA of her chest which showed evidence of congestive heart failure, EKG showed a sinus rhythm with a left bundle branch block, troponin was 0.1, creatinine was 1.5, beta natruretic peptide was 280. Patient's troponin was repeated while she was in the emergency room and it ashley to 1.9, she was placed on aspirin, heparin, and a nitroglycerin drip and given IV Lasix. Patient required BiPAP to maintain her pulse ox. Cardiology was contacted and the patient was admitted to the hospital with cardiology to consult. Patient had an echocardiogram performed which showed evidence of pulmonary hypertension and severely reduced ejection fraction of 25%. Patient was felt to have had a non-STEMI, troponin elevated to 90. Patient's creatinine elevated due to acute kidney injury from contrast nephropathy, she was seen in consultation by nephrology,, patient was given hydration and her creatinine improved. On 07/19/2020, patient underwent a cardiac catheterization which showed severe obstructive triple-vessel coronary artery disease, it was recommended that the patient be transferred to a tertiary hospital for possible coronary artery bypass and the patient and her daughter agreed. On 07/19/20, patient was seen and examined: On examination she appeared in good health and spirits, she does not appear to be in any distress. Vital signs as documented. Skin warm and dry and without overt rashes. Neck without JVD, thyroid appears normal, trachea is midline, neck is supple. Lungs clear, normal air movement was noted. Heart exam notable for regular rhythm, normal sounds and absence of murmurs, rubs or gallops. Abdomen unremarkable and without evidence of organomegaly, masses, or abdominal aortic enlargement, bowel sounds are present in all 4 quadrants, no abdominal tenderness was noted. Extremities nonedematous, no cyanosis was noted, no clubbing was noted. Neuro: Cranial nerves II through XII are grossly intact, no focal motor deficits were noted, sensation to light touch and pinprick is intact, motor exam 5/5 throughout. Psych: Patient is alert and oriented x3, she does not appear anxious or depressed, she does not appear agitated. Patient appeared stable for transfer to [facility] in [facility] on 07/19/2020 for further care. Patient Problems: Active and Suspected Problems (Last Updated 07/19/20 @ 13:10 by Maggy García) Elevated troponin (Acute) Left bundle branch block (Acute) NSTEMI (non-ST elevated myocardial infarction) (Acute 07/13/20) Pulmonary edema (Acute) (HFpEF) heart failure with preserved ejection fraction (Acute) Acute respiratory failure with hypoxia and hypercapnia (Acute) Debility (Acute) - Physical Exam Vitals/I&O's: Vital Signs Temp Pulse Resp BP Pulse Ox 97.9 F 58 L 18 133/60 H 97 07/19/20 14:20 07/19/20 15:00 07/19/20 14:37 07/19/20 14:20 07/19/20 14:20 Oxygen Flow Rate (L/min) 2 Oxygen Delivery Method Room Air Weight: 91.2 kg Body Mass Index (BMI) 36.7 Finger Stick Blood Glucose 241 Intake and Output for Last 24 Hours 07/18/20 07/19/20 07/20/20 23:59 23:59 23:59 Intake Total 1100 / 1580 979.25 / 979.25 Output Total 2850 / 3400 1850 / 1850 Balance -1750 / -1820 -870.75 / -870.75 Microbiology Past 72 Hours 07/13/20 03:20 Blood Culture (Wb) #2 - Anticubital Right Blood Culture - Final No growth in 5 days. 07/13/20 03:12 Blood Culture (Wb) - Anticubital Left Blood Culture - Final No growth in 5 days. Home Medications: Medications to take at Discharge Warfarin [Coumadin] 2.5 mg PO .COMPLEX 08/28/14 Clonazepam [Klonopin] 1 mg PO TID PRN PRN 08/14/15 Famotidine [Pepcid] 20 mg PO QHS 08/14/15 amlodipine 5 mg tablet 5 mg PO QHS 08/28/17 fenofibrate nanocrystallized 145 mg tablet 145 mg PO QHS 08/28/17 hydrochlorothiazide 25 mg tablet 25 mg PO QAM 08/28/17 albuterol sulfate 2.5 mg INHALATION Q4H PRN 02/10/19 Simvastatin 40 mg PO QHS 04/02/19 ipratropium 0.5 mg-albuterol 3 mg (2.5 mg base)/3 mL nebulization soln 3 ml INHALATION Q6H PRN #180 ml 09/24/19 flash glucose scanning reader See Rx Instructions .ROUTE .MEDSUPPLY #1 ea 01/29/20 flash glucose sensor See Rx Instructions .ROUTE .MEDSUPPLY #2 ea 01/29/20 pen needle, diabetic 32 gauge x 5/32 See Rx Instructions .ROUTE .MEDSUPPLY #100 ea 01/29/20 blood sugar diagnostic See Rx Instructions .ROUTE .MEDSUPPLY #50 ea 01/30/20 montelukast 10 mg tablet 10 mg PO QPM #30 tab 07/02/20 Insulin Glargine,Hum.rec.anlog [Lantus Solostar U-100 Insulin] 30 unit SC DAILY 07/13/20 Insulin Lispro See Protocol SC TID 07/13/20 Lisinopril [Zestril] 20 mg PO BID 07/13/20 Primary Care Physician: Rufus Blanco DO [Primary Care Provider] - Disposition: Acute care Hospital Minutes spent on discharge:: 33 Patient Condition:: Stable Medical Necessity - Tobacco Use Smoking Status: Former smoker Tobacco Use: Non-smoker Meaningful Use Info Meaningful Use Diagnoses (Choose all that apply): AMI, CHF - AMI/Post PCI/Angioplasty Aspirin given w/in 24hrs of arrival?: Yes ASA at discharge?: Yes Antiplatelet Therapy at Discharge:: Yes Statins at discharge?: Yes Antonio/ARB at discharge?: No Reason Antonio/ARB not ordered:: Worsening renal dysfunctn Beta Yamilka at discharge?: Yes Done w/ Acute AL measure.: Yes Documented LVEF (%): 25 - CHF ANTONIO/ARB ordered at discharge?: No Reason ANTONIO/ARB not ordered?: Worsening renal dysfunctn Documented LVEF (%): 25 Inpatient E&M: [id number] Disch Hosp
== END 2020-07-19 17:44 | disposition short-term general hospital (02) | DRG 280 ==
LOC: ED 06:32 → ICU 07:24 → PCU 07-15 13:02
PROVIDERS: Internal Medicine Interventional Cardiology; Emergency Provider Emergency Medicine; PCP Family Medicine; Visit Provider Internal Medicine
DX: I21.4 Non-ST elevation (NSTEMI) myocardial infarction (principal); J96.01 Acute respiratory failure with hypoxia; J96.02 Acute respiratory failure with hypercapnia; I50.21 Acute systolic (congestive) heart failure; N17.0 Acute kidney failure with tubular necrosis; I13.0 Hypertensive heart and chronic kidney disease with heart failure and stage 1 through stage 4 chronic kidney disease, or unspecified chronic kidney disease; E87.2 Acidosis; F41.1 Generalized anxiety disorder; E11.22 Type 2 diabetes mellitus with diabetic chronic kidney disease; E78.5 Hyperlipidemia, unspecified; J30.1 Allergic rhinitis due to pollen; E66.01 Morbid (severe) obesity due to excess calories; Z68.38 Body mass index [BMI] 38.0-38.9, adult; I44.7 Left bundle-branch block, unspecified; I25.10 Atherosclerotic heart disease of native coronary artery without angina pectoris; E11.65 Type 2 diabetes mellitus with hyperglycemia; I27.20 Pulmonary hypertension, unspecified; N18.32 Chronic kidney disease, stage 3b; R91.1 Solitary pulmonary nodule; H81.09 Meniere's disease, unspecified ear; K21.9 Gastro-esophageal reflux disease without esophagitis; F32.9 Major depressive disorder, single episode, unspecified; K44.9 Diaphragmatic hernia without obstruction or gangrene; I25.5 Ischemic cardiomyopathy; T50.8X5A Adverse effect of diagnostic agents, initial encounter; N14.1 Nephropathy induced by other drugs, medicaments and biological substances; Z79.4 Long term (current) use of insulin; Z86.718 Personal history of other venous thrombosis and embolism; Z79.01 Long term (current) use of anticoagulants; Z87.891 Personal history of nicotine dependence; Z80.0 Family history of malignant neoplasm of digestive organs; Z82.49 Family history of ischemic heart disease and other diseases of the circulatory system; Z83.3 Family history of diabetes mellitus
CPT/HCPCS: 36415; 36600; 71045; 71275; 76770; 80048; 80053; 81001; 82570; 82803; 82962; 83036; 83605; 83880; 84300; 84484; 84540; 85025; 85610; 85730; 87040; 87426; 87635; 93005; 93306; 93458; 94002; 94640; 97110; 97116; 97162; 97166; 97530; 97535; 97803; 99152; 99153; 99251; 99285; J7030; J7050; Q9957; Q9967; A4216; C1769; C1894; C8929; G0463; J1940; J2405; U0002

== ENCOUNTER → 2020-08-23 05:00 | Outpatient (REF) | payer MEDICARE, MEDICAID, SELFPAY ==
[2020-07-13 08:44] VITALS: BMI 36.7
[2020-08-23 06:47] LABS: Absolute Lymphocyte Count 1.62 X10^3/uL (0.83-4.51); Absolute Neutrophil Count 3.5 X10^3/uL (2.0-7.7); Basophil# 0.06 X10^3/uL; Basophil% 0.9 % (0-1); Eosinophils% 8.9 % (0-5); Hematocrit 34.1 % (37-47); Hemoglobin 9.8 g/dL (12.0-15.0); Lymphocyte # 1.62 X10^3/ul (0.83-4.51); Lymphocyte % 24.1 % (19-41); Mean Corp Hgb Conc 28.7 g/dL (32-36); Mean Corpuscular Hgb 27.4 pg (27.0-32.0); Mean Corpuscular Volume 95.3 fL (81-99); Monocyte# 0.93 X10^3/uL; Monocyte% 13.9 % (0-10); NRBC Flagged by Analyzer 0 % (0-5); Neutrophil # 3.47 X10^3/uL (2.7-7.7); Neutrophil % 51.8 % (47-70); Platelet Count 331 K/mm3 (150-450); RBC Distribution Width CV 16.6 % (11.6-14.6); Red Blood Count 3.58 M/mm3 (4.2-5.4); White Blood Count 6.7 K/mm3 (4.4-11.0)
[2020-08-23 06:56] LABS: International Normalized Ratio 2.6; Prothrombin Time (Protime)PT. 27.3 SECONDS (11.7-14.9)
[2020-08-23 07:04] LABS: Anion Gap 4 (5-15); BUN 34 mg/dL (7-18); BUN/Creat Ratio 20.9 RATIO (10-20); Calcium,Total 8.7 mg/dL (8.5-10.1); Chloride 107 mmol/L (98-107); Creatinine, Serum 1.63 mg/dL (0.55-1.02); EST Glomerular Filtration Rate 33 mL/min (>60); Est Glom Filt Rate - Afr Amer 39 mL/min (>60); Glucose 92 mg/dL (74-106); Potassium 4.5 mmol/L (3.5-5.1); Sodium Level 142 mmol/L (136-145)
== END ==
LOC: OLS.WHLTCC 05:00
PROVIDERS: PCP Family Medicine; Visit Provider Family Medicine
DX: Z48.812 Encounter for surgical aftercare following surgery on the circulatory system (principal); I50.21 Acute systolic (congestive) heart failure; J44.1 Chronic obstructive pulmonary disease with (acute) exacerbation; J96.01 Acute respiratory failure with hypoxia
CPT/HCPCS: 36415; 80048; 85025; 85610

== ENCOUNTER → 2020-08-27 05:00 | Outpatient (REF) | payer MEDICARE, MEDICAID, SELFPAY ==
[2020-07-13 08:44] VITALS: BMI 36.7
[2020-08-27 07:05] LABS: INR Fingerstick 3.4; Prothrombin Time Fingerstick 36.8 SEC (11.9-14.4)
== END ==
LOC: OLS.WHLEAS 05:00
PROVIDERS: PCP Family Medicine; Visit Provider Family Medicine
DX: I48.91 Unspecified atrial fibrillation (principal); I50.21 Acute systolic (congestive) heart failure; J44.1 Chronic obstructive pulmonary disease with (acute) exacerbation; J96.01 Acute respiratory failure with hypoxia; Z48.812 Encounter for surgical aftercare following surgery on the circulatory system
CPT/HCPCS: 36416; 85610

== ENCOUNTER → 2020-08-30 04:00 | Outpatient (REF) | payer MEDICARE, MEDICAID, SELFPAY ==
[2020-07-13 08:44] VITALS: BMI 36.7
[2020-08-30 07:30] LABS: Hematocrit 35.3 % (37-47); Hemoglobin 10.3 g/dL (12.0-15.0); Mean Corp Hgb Conc 29.2 g/dL (32-36); Mean Corpuscular Hgb 27.9 pg (27.0-32.0); Mean Corpuscular Volume 95.7 fL (81-99); Mean Platelet Vol. 12.4 fl (6.2-12.0); Platelet Count 335 K/mm3 (150-450); RBC Distribution Width CV 16.5 % (11.6-14.6); RBC Distribution Width SD 58.4 fl (35.1-43.9); Red Blood Count 3.69 M/mm3 (4.2-5.4); White Blood Count 7.4 K/mm3 (4.4-11.0)
[2020-08-30 07:45] LABS: Anion Gap 7 (5-15); BUN 35 mg/dL (7-18); BUN/Creat Ratio 19.1 RATIO (10-20); Calcium,Total 9.2 mg/dL (8.5-10.1); Chloride 105 mmol/L (98-107); Creatinine, Serum 1.83 mg/dL (0.55-1.02); EST Glomerular Filtration Rate 29 mL/min (>60); Est Glom Filt Rate - Afr Amer 35 mL/min (>60); Glucose 151 mg/dL (74-106); Potassium 4.3 mmol/L (3.5-5.1); Sodium Level 141 mmol/L (136-145)
[2020-08-30 08:40] LABS: Prothrombin Time (Protime)PT. 21.6 SECONDS (11.7-14.9)
== END ==
LOC: OLS.WHLEAS 04:00
PROVIDERS: PCP Family Medicine; Referring Provider Family Medicine; Visit Provider Family Medicine
DX: Z48.812 Encounter for surgical aftercare following surgery on the circulatory system (principal); I50.21 Acute systolic (congestive) heart failure; J44.1 Chronic obstructive pulmonary disease with (acute) exacerbation; J96.01 Acute respiratory failure with hypoxia
CPT/HCPCS: 36415; 80048; 85027; 85610

== ENCOUNTER → 2020-09-01 05:00 | Outpatient (REF) | payer MEDICARE, MEDICAID, SELFPAY ==
[2020-07-13 08:44] VITALS: BMI 36.7
[2020-09-03 09:21] LABS: INR Fingerstick 2.3; Prothrombin Time Fingerstick 25.8 SEC (11.9-14.4)
== END ==
LOC: OLS.WHLEAS 05:00
PROVIDERS: PCP Family Medicine; Visit Provider Family Medicine
DX: I48.91 Unspecified atrial fibrillation (principal); I50.21 Acute systolic (congestive) heart failure; J44.1 Chronic obstructive pulmonary disease with (acute) exacerbation; J96.01 Acute respiratory failure with hypoxia; Z48.812 Encounter for surgical aftercare following surgery on the circulatory system
CPT/HCPCS: 36416; 85610

== ENCOUNTER → 2020-09-06 06:20 | Outpatient (REF) | payer MEDICARE, MEDICAID, SELFPAY ==
[2020-07-13 08:44] VITALS: BMI 36.7
[2020-09-06 08:17] LABS: Absolute Lymphocyte Count 1.96 X10^3/uL (0.83-4.51); Absolute Neutrophil Count 3.8 X10^3/uL (2.0-7.7); Basophil# 0.03 X10^3/uL; Basophil% 0.4 % (0-1); Eosinophil# 0.47 X10^3/uL; Eosinophils% 6.6 % (0-5); Hematocrit 34.3 % (37-47); Hemoglobin 10.1 g/dL (12.0-15.0); Lymphocyte # 1.96 X10^3/ul (0.83-4.51); Lymphocyte % 27.6 % (19-41); Mean Corp Hgb Conc 29.4 g/dL (32-36); Mean Corpuscular Hgb 27.7 pg (27.0-32.0); Mean Platelet Vol. 12.3 fl (6.2-12.0); Monocyte# 0.82 X10^3/uL; Monocyte% 11.5 % (0-10); NRBC Flagged by Analyzer 0 % (0-5); Neutrophil # 3.79 X10^3/uL (2.7-7.7); Neutrophil % 53.3 % (47-70); Platelet Count 277 K/mm3 (150-450); RBC Distribution Width CV 16.5 % (11.6-14.6); RBC Distribution Width SD 57.2 fl (35.1-43.9); Red Blood Count 3.65 M/mm3 (4.2-5.4); White Blood Count 7.1 K/mm3 (4.4-11.0)
[2020-09-06 08:23] LABS: International Normalized Ratio 1.5; Prothrombin Time (Protime)PT. 17.6 SECONDS (11.7-14.9)
[2020-09-06 08:25] LABS: Anion Gap 5 (5-15); BUN 39 mg/dL (7-18); BUN/Creat Ratio 21.7 RATIO (10-20); Calcium,Total 8.7 mg/dL (8.5-10.1); Chloride 107 mmol/L (98-107); EST Glomerular Filtration Rate 29 mL/min (>60); Est Glom Filt Rate - Afr Amer 35 mL/min (>60); Glucose 121 mg/dL (74-106); Potassium 4.8 mmol/L (3.5-5.1); Sodium Level 141 mmol/L (136-145)
[2020-09-10 12:52] VITALS: BMI 34.8
== END ==
LOC: OLS.WHLEAS 06:20
PROVIDERS: PCP Family Medicine; Visit Provider Family Medicine
DX: Z48.812 Encounter for surgical aftercare following surgery on the circulatory system (principal); I50.21 Acute systolic (congestive) heart failure; J44.1 Chronic obstructive pulmonary disease with (acute) exacerbation; J96.01 Acute respiratory failure with hypoxia
CPT/HCPCS: 36415; 80048; 85025; 85610

== ENCOUNTER → 2020-09-08 05:00 | Outpatient (REF) | payer MEDICARE, MEDICAID, SELFPAY ==
[2020-07-13 08:44] VITALS: BMI 36.7
[2020-09-08 07:00] LABS: INR Fingerstick 1.4; Prothrombin Time Fingerstick 16.8 SEC (11.9-14.4)
[2020-09-10 12:52] VITALS: BMI 34.8
== END ==
LOC: OLS.WHLEAS 05:00
PROVIDERS: PCP Family Medicine; Visit Provider Family Medicine
DX: I48.91 Unspecified atrial fibrillation (principal); I50.21 Acute systolic (congestive) heart failure; J44.1 Chronic obstructive pulmonary disease with (acute) exacerbation; J96.01 Acute respiratory failure with hypoxia; Z48.812 Encounter for surgical aftercare following surgery on the circulatory system
CPT/HCPCS: 36416; 85610

== ENCOUNTER → 2020-09-13 05:35 | Outpatient (REF) | payer MEDICARE, MEDICAID, SELFPAY ==
[2020-09-10 12:52] VITALS: BMI 34.8
[2020-09-13 07:21] LABS: Absolute Lymphocyte Count 1.91 X10^3/uL (0.83-4.51); Absolute Neutrophil Count 2.8 X10^3/uL (2.0-7.7); Basophil# 0.04 X10^3/uL; Basophil% 0.7 % (0-1); Eosinophil# 0.35 X10^3/uL; Hematocrit 35.7 % (37-47); Hemoglobin 10.6 g/dL (12.0-15.0); Lymphocyte # 1.91 X10^3/ul (0.83-4.51); Lymphocyte % 32.8 % (19-41); Mean Corp Hgb Conc 29.7 g/dL (32-36); Mean Corpuscular Hgb 27.4 pg (27.0-32.0); Mean Corpuscular Volume 92.2 fL (81-99); Mean Platelet Vol. 12.5 fl (6.2-12.0); Monocyte# 0.71 X10^3/uL; Monocyte% 12.2 % (0-10); NRBC Flagged by Analyzer 0 % (0-5); Platelet Count 253 K/mm3 (150-450); RBC Distribution Width CV 16.6 % (11.6-14.6); RBC Distribution Width SD 56.8 fl (35.1-43.9); Red Blood Count 3.87 M/mm3 (4.2-5.4); White Blood Count 5.8 K/mm3 (4.4-11.0)
[2020-09-13 07:32] LABS: Anion Gap 6 (5-15); BUN 44 mg/dL (7-18); BUN/Creat Ratio 25.4 RATIO (10-20); Calcium,Total 8.8 mg/dL (8.5-10.1); Chloride 106 mmol/L (98-107); Creatinine, Serum 1.73 mg/dL (0.55-1.02); EST Glomerular Filtration Rate 30 mL/min (>60); Est Glom Filt Rate - Afr Amer 37 mL/min (>60); Glucose 145 mg/dL (74-106); Potassium 4.4 mmol/L (3.5-5.1); Sodium Level 140 mmol/L (136-145)
[2020-09-13 08:14] LABS: International Normalized Ratio 2.1; Prothrombin Time (Protime)PT. 22.8 SECONDS (11.7-14.9)
== END ==
LOC: OLS.WHLEAS 05:35
PROVIDERS: PCP Family Medicine; Visit Provider Family Medicine
DX: Z48.812 Encounter for surgical aftercare following surgery on the circulatory system (principal); I50.21 Acute systolic (congestive) heart failure; J44.1 Chronic obstructive pulmonary disease with (acute) exacerbation; J96.01 Acute respiratory failure with hypoxia
CPT/HCPCS: 36415; 80048; 85025; 85610

== ENCOUNTER → 2020-09-15 05:00 | Outpatient (REF) | payer MEDICARE, MEDICAID, SELFPAY ==
[2020-09-10 12:52] VITALS: BMI 34.8
[2020-09-15 11:36] LABS: INR Fingerstick 2.6; Prothrombin Time Fingerstick 28.9 SEC (11.9-14.4)
== END ==
LOC: OLS.WHLEAS 05:00
PROVIDERS: PCP Family Medicine; Visit Provider Family Medicine
DX: I48.91 Unspecified atrial fibrillation (principal); I50.21 Acute systolic (congestive) heart failure; J44.1 Chronic obstructive pulmonary disease with (acute) exacerbation; J96.01 Acute respiratory failure with hypoxia; Z48.812 Encounter for surgical aftercare following surgery on the circulatory system
CPT/HCPCS: 36416; 85610

== ENCOUNTER → 2020-09-20 05:00 | Outpatient (REF) | payer MEDICARE, MEDICAID, SELFPAY ==
[2020-09-10 12:52] VITALS: BMI 34.8
[2020-09-20 07:10] LABS: Absolute Lymphocyte Count 2.12 X10^3/uL (0.83-4.51); Absolute Neutrophil Count 2.9 X10^3/uL (2.0-7.7); Basophil# 0.05 X10^3/uL; Basophil% 0.8 % (0-1); Eosinophil# 0.26 X10^3/uL; Eosinophils% 4.2 % (0-5); Hematocrit 37.1 % (37-47); Lymphocyte # 2.12 X10^3/ul (0.83-4.51); Lymphocyte % 34.2 % (19-41); Mean Corp Hgb Conc 29.6 g/dL (32-36); Mean Corpuscular Hgb 27.3 pg (27.0-32.0); Mean Corpuscular Volume 92.1 fL (81-99); Mean Platelet Vol. 12.7 fl (6.2-12.0); Monocyte% 12.9 % (0-10); NRBC Flagged by Analyzer 0 % (0-5); Neutrophil # 2.94 X10^3/uL (2.7-7.7); Neutrophil % 47.4 % (47-70); Platelet Count 235 K/mm3 (150-450); RBC Distribution Width CV 16.9 % (11.6-14.6); RBC Distribution Width SD 57.6 fl (35.1-43.9); Red Blood Count 4.03 M/mm3 (4.2-5.4); White Blood Count 6.2 K/mm3 (4.4-11.0)
[2020-09-20 07:18] LABS: International Normalized Ratio 2.5; Prothrombin Time (Protime)PT. 26.3 SECONDS (11.7-14.9)
[2020-09-20 07:41] LABS: Anion Gap 6 (5-15); BUN 35 mg/dL (7-18); BUN/Creat Ratio 20.2 RATIO (10-20); Calcium,Total 9.2 mg/dL (8.5-10.1); Chloride 108 mmol/L (98-107); Creatinine, Serum 1.73 mg/dL (0.55-1.02); EST Glomerular Filtration Rate 30 mL/min (>60); Est Glom Filt Rate - Afr Amer 37 mL/min (>60); Glucose 112 mg/dL (74-106); Potassium 4.4 mmol/L (3.5-5.1); Sodium Level 142 mmol/L (136-145)
== END ==
LOC: OLS.WHLEAS 05:00
PROVIDERS: PCP Family Medicine; Referring Provider Family Medicine; Visit Provider Family Medicine
DX: Z48.812 Encounter for surgical aftercare following surgery on the circulatory system (principal); I50.21 Acute systolic (congestive) heart failure; J44.1 Chronic obstructive pulmonary disease with (acute) exacerbation; J96.01 Acute respiratory failure with hypoxia
CPT/HCPCS: 36415; 80048; 85025; 85610

== ENCOUNTER → 2020-09-22 05:00 | Outpatient (REF) | payer MEDICARE, MEDICAID, SELFPAY ==
[2020-09-10 12:52] VITALS: BMI 34.8
[2020-09-22 07:50] LABS: INR Fingerstick 2.5; Prothrombin Time Fingerstick 27.8 SEC (11.9-14.4)
== END ==
LOC: OLS.WHLEAS 05:00
PROVIDERS: PCP Family Medicine; Visit Provider Family Medicine
DX: I48.91 Unspecified atrial fibrillation (principal); I50.21 Acute systolic (congestive) heart failure; J44.1 Chronic obstructive pulmonary disease with (acute) exacerbation; J96.01 Acute respiratory failure with hypoxia; Z48.812 Encounter for surgical aftercare following surgery on the circulatory system
CPT/HCPCS: 36416; 85610

== ENCOUNTER → 2020-09-28 05:00 | Outpatient (REF) | payer MEDICARE, MEDICAID, SELFPAY ==
[2020-09-10 12:52] VITALS: BMI 34.8
[2020-09-28 08:50] LABS: Absolute Lymphocyte Count 1.95 X10^3/uL (0.83-4.51); Absolute Neutrophil Count 3.2 X10^3/uL (2.0-7.7); Basophil# 0.05 X10^3/uL; Basophil% 0.8 % (0-1); Eosinophil# 0.24 X10^3/uL; Eosinophils% 3.8 % (0-5); Hematocrit 37.6 % (37-47); Hemoglobin 11.2 g/dL (12.0-15.0); Lymphocyte # 1.95 X10^3/ul (0.83-4.51); Lymphocyte % 31.3 % (19-41); Mean Corp Hgb Conc 29.8 g/dL (32-36); Mean Corpuscular Hgb 27.8 pg (27.0-32.0); Mean Corpuscular Volume 93.3 fL (81-99); Mean Platelet Vol. 12.4 fl (6.2-12.0); Monocyte# 0.75 X10^3/uL; NRBC Flagged by Analyzer 0 % (0-5); Neutrophil # 3.23 X10^3/uL (2.7-7.7); Neutrophil % 51.8 % (47-70); Platelet Count 252 K/mm3 (150-450); RBC Distribution Width CV 16.9 % (11.6-14.6); RBC Distribution Width SD 57.3 fl (35.1-43.9); Red Blood Count 4.03 M/mm3 (4.2-5.4); White Blood Count 6.2 K/mm3 (4.4-11.0)
[2020-09-28 08:56] LABS: International Normalized Ratio 1.6; Prothrombin Time (Protime)PT. 18.5 SECONDS (11.7-14.9)
[2020-09-28 09:07] LABS: Anion Gap 5 (5-15); BUN 33 mg/dL (7-18); BUN/Creat Ratio 19.2 RATIO (10-20); Calcium,Total 8.7 mg/dL (8.5-10.1); Chloride 109 mmol/L (98-107); Creatinine, Serum 1.72 mg/dL (0.55-1.02); EST Glomerular Filtration Rate 31 mL/min (>60); Est Glom Filt Rate - Afr Amer 37 mL/min (>60); Glucose 115 mg/dL (74-106); Potassium 4.1 mmol/L (3.5-5.1); Sodium Level 142 mmol/L (136-145)
== END ==
LOC: OLS.WHLEAS 05:00
PROVIDERS: PCP Family Medicine; Visit Provider Family Medicine
DX: Z48.812 Encounter for surgical aftercare following surgery on the circulatory system (principal); I50.41 Acute combined systolic (congestive) and diastolic (congestive) heart failure; J44.1 Chronic obstructive pulmonary disease with (acute) exacerbation; J96.01 Acute respiratory failure with hypoxia
CPT/HCPCS: 36415; 80048; 85025; 85610

== ENCOUNTER → 2020-10-05 05:00 | Outpatient (REF) | payer MEDICARE, MEDICAID, SELFPAY ==
[2020-09-10 12:52] VITALS: BMI 34.8
[2020-10-05 07:43] LABS: Absolute Lymphocyte Count 1.89 X10^3/uL (0.83-4.51); Absolute Neutrophil Count 3.6 X10^3/uL (2.0-7.7); Basophil# 0.04 X10^3/uL; Basophil% 0.6 % (0-1); Eosinophil# 0.25 X10^3/uL; Eosinophils% 3.8 % (0-5); Hematocrit 35.1 % (37-47); Hemoglobin 10.7 g/dL (12.0-15.0); Lymphocyte # 1.89 X10^3/ul (0.83-4.51); Lymphocyte % 28.5 % (19-41); Mean Corp Hgb Conc 30.5 g/dL (32-36); Mean Corpuscular Hgb 27.8 pg (27.0-32.0); Mean Corpuscular Volume 91.2 fL (81-99); Mean Platelet Vol. 12.6 fl (6.2-12.0); Monocyte# 0.83 X10^3/uL; Monocyte% 12.5 % (0-10); NRBC Flagged by Analyzer 0 % (0-5); Neutrophil # 3.58 X10^3/uL (2.7-7.7); Neutrophil % 54.1 % (47-70); Platelet Count 207 K/mm3 (150-450); Red Blood Count 3.85 M/mm3 (4.2-5.4); White Blood Count 6.6 K/mm3 (4.4-11.0)
[2020-10-05 07:59] LABS: Anion Gap 6 (5-15); BUN 31 mg/dL (7-18); BUN/Creat Ratio 20.1 RATIO (10-20); Calcium,Total 8.9 mg/dL (8.5-10.1); Chloride 109 mmol/L (98-107); Creatinine, Serum 1.54 mg/dL (0.55-1.02); EST Glomerular Filtration Rate 35 mL/min (>60); Est Glom Filt Rate - Afr Amer 42 mL/min (>60); Glucose 111 mg/dL (74-106); Potassium 4.5 mmol/L (3.5-5.1); Sodium Level 143 mmol/L (136-145)
[2020-10-05 08:02] LABS: International Normalized Ratio 2.5; Prothrombin Time (Protime)PT. 26.6 SECONDS (11.7-14.9)
== END ==
LOC: OLS.WHLEAS 05:00
PROVIDERS: PCP Family Medicine; Referring Provider Family Medicine; Visit Provider Family Medicine
DX: Z48.812 Encounter for surgical aftercare following surgery on the circulatory system (principal); I50.21 Acute systolic (congestive) heart failure; J44.1 Chronic obstructive pulmonary disease with (acute) exacerbation; J96.01 Acute respiratory failure with hypoxia
CPT/HCPCS: 36415; 80048; 85025; 85610

== ENCOUNTER → 2020-10-12 05:00 | Outpatient (REF) | payer MEDICARE, MEDICAID, SELFPAY ==
[2020-09-10 12:52] VITALS: BMI 34.8
[2020-10-12 08:41] LABS: Absolute Lymphocyte Count 1.78 X10^3/uL (0.83-4.51); Absolute Neutrophil Count 3.1 X10^3/uL (2.0-7.7); Basophil# 0.03 X10^3/uL; Basophil% 0.5 % (0-1); Eosinophil# 0.24 X10^3/uL; Eosinophils% 4.1 % (0-5); Hematocrit 35.7 % (37-47); Hemoglobin 10.5 g/dL (12.0-15.0); Lymphocyte # 1.78 X10^3/ul (0.83-4.51); Lymphocyte % 30.2 % (19-41); Mean Corp Hgb Conc 29.4 g/dL (32-36); Mean Corpuscular Hgb 27.3 pg (27.0-32.0); Mean Corpuscular Volume 92.7 fL (81-99); Mean Platelet Vol. 12.6 fl (6.2-12.0); Monocyte# 0.73 X10^3/uL; Monocyte% 12.4 % (0-10); NRBC Flagged by Analyzer 0 % (0-5); Neutrophil # 3.09 X10^3/uL (2.7-7.7); Neutrophil % 52.3 % (47-70); Platelet Count 218 K/mm3 (150-450); RBC Distribution Width SD 57.4 fl (35.1-43.9); Red Blood Count 3.85 M/mm3 (4.2-5.4); White Blood Count 5.9 K/mm3 (4.4-11.0)
[2020-10-12 08:49] LABS: Prothrombin Time (Protime)PT. 21.8 SECONDS (11.7-14.9)
[2020-10-12 08:52] LABS: Anion Gap 4 (5-15); BUN 39 mg/dL (7-18); BUN/Creat Ratio 26.7 RATIO (10-20); Calcium,Total 8.8 mg/dL (8.5-10.1); Chloride 111 mmol/L (98-107); Creatinine, Serum 1.46 mg/dL (0.55-1.02); EST Glomerular Filtration Rate 37 mL/min (>60); Est Glom Filt Rate - Afr Amer 45 mL/min (>60); Glucose 142 mg/dL (74-106); Potassium 4.3 mmol/L (3.5-5.1); Sodium Level 142 mmol/L (136-145)
== END ==
LOC: OLS.WHLEAS 05:00
PROVIDERS: PCP Family Medicine; Referring Provider Family Medicine; Visit Provider Family Medicine
DX: Z48.812 Encounter for surgical aftercare following surgery on the circulatory system (principal); I50.21 Acute systolic (congestive) heart failure; J44.1 Chronic obstructive pulmonary disease with (acute) exacerbation; J96.01 Acute respiratory failure with hypoxia
CPT/HCPCS: 36415; 80048; 85025; 85610

== ENCOUNTER 2020-10-24 13:48 | Inpatient (IN) | payer MEDICARE, MEDICAID, SELFPAY ==
[2020-09-10 12:52] VITALS: BMI 34.8
[2020-10-24] VITALS (10 sets, daily range): BP systolic 132–156; BP diastolic 65–94; PULSE 69–74; RESP 16–25; TEMP 36.6–36.8; O2SAT 93–95; BMI 36.7; BMI 35.2
--- NOTE | 2020-10-24 14:32 | RAD_ITS ---
STUDY: X-RAY CHEST REASON FOR EXAM: Female, 75 years old. dyspnea TECHNIQUE: 1 view COMPARISON: 07/13/2020 FINDINGS: Please see the impression. RAD/Chest 1 View (Portable) IMPRESSION: Borderline cardiomegaly with mild pulmonary vascular congestion. Small bilateral pleural effusions. No pneumothorax. Trachea midline. Status post median sternotomy. Electronically Signed: Stanton Clarke MD at 15:50 EDT Tel , Service support ,
--- NOTE | 2020-10-24 14:32 | EKG12_ITS ---
Test Reason : SOB Blood Pressure : / mmHG Vent. Rate : 071 BPM Atrial Rate : 071 BPM P-R Int : 144 ms QRS Dur : 150 ms QT Int : 450 ms P-R-T Axes : 063 037 -30 degrees QTc Int : 489 ms Normal sinus rhythm Left bundle branch block Abnormal ECG Confirmed by LEE TORRES, LIZETTE ([id number]), sports editor MICHAEL BARROSO ([id number]) on 10/26/2020 9:07:31 AM Referred By: Confirmed By:LIZETTE HOWARD MD
--- NOTE | 2020-10-24 14:33 | ED.VIS.DYS ---
HPI History of Present Illness Chief Complaint: Shortness of Breath Detail of Chief Complaint: Shortness of breath that she has had for weeks. Informant: patient Narrative Narrative: Patient presents to the emergency department complaint of shortness of breath for several weeks. 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 Patient noticed when she got home that she had exertional dyspnea with climbing up steps. She denies chest pain. She denies fever. She has minimal cough. Patient has history of COPD but not on oxygen at home. Patient states that she has been using her inhaler every 4 hours and that seems to help at times. She is on Coumadin and her last INR was 2 days ago and was 2.4. [facility] Medical History (Updated 10/24/20 @ 16:[address] Lis Hale DO) (HFpEF) heart failure with preserved ejection fraction Acute respiratory failure with hypoxia and hypercapnia (07/13/20) Allergic rhinitis Anxiety disorder Atherosclerotic heart disease of [place] coronary artery without angina pectoris Cardiomyopathy, ischemic Chronic diastolic (congestive) heart failure Chronic renal failure, stage 3 (moderate) COPD exacerbation Debility Depression Diabetes mellitus, type 2 DVT of lower extremity (deep venous thrombosis) (2012) Essential hypertension Gastroesophageal reflux disease with hiatal hernia History of non-ST elevation myocardial infarction (NSTEMI) (07/13/20) Hyperlipidemia Left bundle branch block Lung nodule Menieres disease Obesity (BMI 30-39.9) Pulmonary edema Stage 2 moderate COPD by GOLD classification Home Medications clonazepam 1 mg PO TID PRN PRN 08/14/15 [History Last Taken 07/12/20 20:00] famotidine 20 mg PO BID 08/14/15 [History Last Taken 07/12/20 07:00] flash glucose scanning reader #1 ea 01/29/20 [Rx Last Taken Unknown] flash glucose sensor #2 ea 01/29/20 [Rx Last Taken Unknown] pen needle, diabetic 32 gauge x #100 ea 01/29/20 [Rx Last Taken Unknown] blood sugar diagnostic #50 ea 01/30/20 [Rx Last Taken Unknown] acetaminophen 325 mg tablet 650 mg PO Q4H PRN tablet 08/17/20 [History Last Taken Unknown] albuterol sulfate 90 mcg/actuation aerosol inhaler 1 puff INHALATION Q4H PRN gm 08/17/20 [History Last Taken Unknown] aspirin 81 mg tablet,delayed release 81 mg PO DAILY 08/17/20 [History Last Taken Unknown] atorvastatin 40 mg tablet 40 mg PO QHS 08/17/20 [History Last Taken Unknown] fenofibrate 160 mg tablet 160 mg PO DAILY 08/17/20 [History Last Taken Unknown] furosemide 40 mg tablet 40 mg PO DAILY tablet 08/17/20 [History Last Taken Unknown] insulin glargine 100 unit/mL (3 mL) subcutaneous pen See Rx Instructions SC BID ml 08/17/20 [History Last Taken Unknown] insulin lispro 100 unit/mL subcutaneous pen See Rx Instructions SC QAC ml 08/17/20 [History Last Taken Unknown] ipratropium bromide 0.02 % solution for inhalation 2.5 ml INHALATION TID PRN ml 08/17/20 [History Last Taken Unknown] polyethylene glycol 3350 17 gram/dose oral powder 17 gm PO DAILY 08/17/20 [History Last Taken Unknown] sennosides 8.6 mg-docusate sodium 50 mg capsule 1 tab-cap PO BID 08/17/20 [History Last Taken Unknown] sertraline 50 mg tablet 50 mg PO DAILY 08/17/20 [History Last Taken Unknown] warfarin 1 mg tablet 2.5 mg PO QPM tablet 08/17/20 [History Last Taken Unknown] carvedilol 6.25 mg PO BID 10/24/20 [History Last Taken Unknown] Allergy/AdvReac Type Severity Reaction Status Date / Time Penicillins Allergy Angioedema Verified 10/24/20 13:52 rosiglitazone maleate Allergy hyperglycem Verified 10/24/20 13:52 [From Avandia] ia cephalexin [From Keflex] AdvReac Diarrhea Verified 10/24/20 13:52 doxycycline AdvReac Diarrhea Verified 10/24/20 13:52 prednisone AdvReac hyperglycem Verified 10/24/20 13:52 ia Sulfa (Sulfonamide AdvReac Unknown Verified 10/24/20 13:52 Antibiotics) PAPER TAPE AdvReac Rash Uncoded 10/24/20 13:53 Family History Sister Lupus Arthritis Brother Colon cancer Cancer Prostate Cancer Arthritis Father Diabetes Heart disease Mother Hypertension Surgical History H/O coronary artery bypass surgery (07/27/20) History of History of cholecystectomy History of left heart catheterization (07/19/20) Social History (Updated 08/23/20 @ 16:55 by Carolin ANNE, PA) Smoking Status: Former smoker how long ago did patient quit smokin alcohol intake: never substance use type: does not use caffeine: No what type of physical activity do you participate in: none frequency: does not exercise seatbelt use: always ROS ROS ED Constitutional Constitutional ED: Reports systems reviewed and no addt'l complaints, except as documented; Denies body ache(s), change in weight or chills Eyes Eyes: Denies acute decrease in peripheral vision, change in vision, double vision or loss of vision ENT ENT ED: Reports none; Denies ear pain, lip swelling, loss taste/smell, neck pain, otalgia or sore throat Cardiovascular Cardiovascular: Reports none, orthopnea and paroxysmal nocturnal dyspnea; Denies abdominal pain, chest pain with activity, leg edema, lightheadedness, palpitations, rapid heart rate or syncope Respiratory/Chest Respiratory/Chest: Reports none, cough, dyspnea, dyspnea on exertion, orthopnea and paroxysmal nocturnal dyspnea; Denies change in mental status, dry cough, hemoptysis, shortness of breath at rest, shortness of breath with exertion or sputum Gastrointestinal Gastrointestinal: Reports none; Denies abdominal pain, change in stool character, diarrhea, hematemesis, hematochezia, melena, rectal bleeding or vomiting Genitourinary Genitourinary ED: Reports none; Denies abdominal discomfort, anuria, dysuria, genital pain or polyuria Musculoskeletal Musculoskeletal: Reports none; Denies arthralgias, back pain, difficulty walking, extremity pain, muscle weakness or myalgias Integumentary Reports none; Denies abscess or rash Neurologic Neurologic: Reports none; Denies abnormal gait, confusion, focal weakness, frequent falls, headache(s), loss of vision, numbness, paresthesias, radicular pain, vertigo or weakness Psychiatric Psychiatric: Reports systems reviewed and no addt'l complaints, except as documented and none; Denies behavioral changes, confusion, difficulty concentrating, hallucinations, suicidal ideation, tactile hallucinations or visual hallucinations Endocrine Endocrinology: Denies none, cold intolerance, excessive sweating, fatigue or heat intolerance Hematologic/Lymphatic Hematologic/Lymphatic: Reports none; Denies anemia, easy bleeding or easy bruising Allergic/Immunologic Allergic/Immunologic ED: Denies as per HPI, none, lip swelling, mouth swelling, throat swelling, tongue swelling or hives EXAM Physical Exam Const Vital Signs: 10/24/20 13:49 10/24/20 14:49 10/24/20 15:06 Temperature 98.0 F Temperature Source Temporal Pulse Rate 74 72 Respiratory Rate 16 25 H Respiratory Effort Short of Breath Respiratory Pattern Tachypnea Tachypnea Blood Pressure 156/70 H Blood Pressure Mean 98 Pulse Ox 94 Oxygen Delivery Method Room Air Room Air Positive well nourished and well developed General Appearance ED: well developed and NAD HEENT Reports TM's clear and moist mucous membranes normocephalic and atraumatic; Negative for trauma or tenderness Tympanic Membrane ED: Yes TM's clear Eyes PERRL and EOMs intact bilaterally General Eye ED: Negative for pale conjunctiva or scleral icterus Neck no lymphadenopathy, supple and no JVD General: Negative for tenderness Chest Wall inspection of chest normal and palpation of chest normal Chest: Negative for tenderness Resp normal respiratory effort and clear to auscultation bilaterally Effort and Inspection: Negative for respiratory distress or pain with movement Auscultation: Negative for rhonchi, wheezes or diminished lung sounds Cardio regular rate, regular rhythm, S1 normal heart sound, S2 normal heart sound and no murmurs Peripheral Pulses: pulses 2+ throughout GI normal to inspection, nondistended, normoactive bowel sounds, soft to palpation, non-tender, non-distended and no masses Back/Spine no CVA tenderness and no thoracic nor lumbar tenderness Extremity normal to inspection General Extremety ED: Yes edema General Extremity: edema Neuro oriented x3, CN's II-XII intact bilaterally, no sensory deficits noted and gait normal Sensorium / Orientation: awake, alert, oriented to person, oriented to place and oriented to time Motor Exam: strength 5/5 throughout and strength abnormal Psych mental status grossly normal Skin no rashes or lesions noted and no wounds MDM MDM MDM Narrative Medical decision making narrative: Patient with small effusions on x-ray and elevated BNP as well as leg edema. I suspect she may have a component CHF and certainly has a history of it. Patient also with some faint wheezes on arrival and history of COPD suspect he may have a component of COPD as well. Lab Data Labs: Laboratory Results - last 24 hr 10/24/20 10/24/20 10/24/20 15:00 15:00 15:00 WBC 7.2 RBC 3.96 L Hgb 11.0 L Hct 36.4 L MCV 91.9 MCH 27.8 MCHC 30.2 L RDW Std Deviation 58.6 H RDW Coeff of [place] 17.4 H Plt Count 248 MPV 12.1 H Immature Gran % (Auto) 0.300 Neut % (Auto) 60.9 Lymph % (Auto) 23.9 [place] % (Auto) 11.1 H Eos % (Auto) 3.2 Baso % (Auto) 0.6 Absolute Neuts (auto) 4.4 Absolute Lymphs (auto) 1.72 Nucleated RBC % 0 Sodium 143 Potassium 4.3 Chloride 110 H Carbon Dioxide 27.0 Anion Gap 6 BUN 47 H Creatinine 1.60 H Estim Creat Clear Calc 25.83 Est GFR (MDRD) Af Amer 40 L Est GFR (MDRD) Non-Af 33 L BUN/Creatinine Ratio 29.4 H Glucose 169 H Calcium 9.2 Troponin I High Sens 25.5 B-Natriuretic Peptide 1598.0 H Radiography Chest X-Ray - ED: 1 View Diagnostic Testing: Radiology Impression Chest X-Ray 10/24/20 14:32 IMPRESSION: Borderline cardiomegaly with mild pulmonary vascular congestion. Small bilateral pleural effusions. No pneumothorax. Trachea midline. Status post median sternotomy. Electronically Signed: Stanton Clarke MD at 15:50 EDT Tel , Service support , 1 view chest x-ray obtained interpreted by myself is cardiomegaly and small pleural effusions. Radiology in agreement. EKG Initial EKG: Comments: Sinus rhythm with a ventricular rate of 71 bpm with a left bundle branch block. Discharge Plan Dx/Rx/DC Orders Clinical Impression: CHF (congestive heart failure), COPD (chronic obstructive pulmonary disease) Disposition Disposition: Acute Care [facility]
[2020-10-24] MEDS: Ipratropium/Albuterol Sulfate 3 ML AMPUL.NEB INHALATION (14:46)
[2020-10-24 15:07] LABS: Absolute Lymphocyte Count 1.72 X10^3/uL (0.83-4.51); Absolute Neutrophil Count 4.4 X10^3/uL (2.0-7.7); Basophil# 0.04 X10^3/uL; Basophil% 0.6 % (0-1); Eosinophil# 0.23 X10^3/uL; Eosinophils% 3.2 % (0-5); Hematocrit 36.4 % (37-47); Lymphocyte # 1.72 X10^3/ul (0.83-4.51); Lymphocyte % 23.9 % (19-41); Mean Corp Hgb Conc 30.2 g/dL (32-36); Mean Corpuscular Hgb 27.8 pg (27.0-32.0); Mean Corpuscular Volume 91.9 fL (81-99); Mean Platelet Vol. 12.1 fl (6.2-12.0); Monocyte% 11.1 % (0-10); NRBC Flagged by Analyzer 0 % (0-5); Neutrophil # 4.38 X10^3/uL (2.7-7.7); Neutrophil % 60.9 % (47-70); Platelet Count 248 K/mm3 (150-450); RBC Distribution Width CV 17.4 % (11.6-14.6); RBC Distribution Width SD 58.6 fl (35.1-43.9); Red Blood Count 3.96 M/mm3 (4.2-5.4); White Blood Count 7.2 K/mm3 (4.4-11.0)
[2020-10-24 15:25] LABS: Anion Gap 6 (5-15); BUN 47 mg/dL (7-18); BUN/Creat Ratio 29.4 RATIO (10-20); Calcium,Total 9.2 mg/dL (8.5-10.1); Chloride 110 mmol/L (98-107); EST Glomerular Filtration Rate 33 mL/min (>60); Est Glom Filt Rate - Afr Amer 40 mL/min (>60); Estimated Creatinine Clearance 25.83 ml/min; Glucose 169 mg/dL (74-106); Potassium 4.3 mmol/L (3.5-5.1); Sodium Level 143 mmol/L (136-145); Troponin-I HS 25.5 pg/mL (3.0-53.7)
[2020-10-24] MEDS: Furosemide 100 MG/10 ML Vial 80 MG IV (16:48)
[2020-10-24] MEDS: MethylPREDNISolone 125 MG/2 ML Vial 80 MG IV (16:51)
--- NOTE | 2020-10-24 16:52 | NURSING ---
PCU CHF, COPD, DYSPNEA WHITE
[2020-10-24 16:56] LABS: International Normalized Ratio 2.8
--- NOTE | 2020-10-24 17:03 | PCM.HP.STD ---
HPI - General General Date of Admission: 10/24/20 Date of Service: 10/24/20 Chief Complaint: Dyspnea, orthopnea, PND, Wheezing. HPI Narrative The patient is a 75 y/o F w/ PMHx: CKD stage III, Diastolic CHF, Ischemic Cardiomyopathy, CAD s/p CABG x 3 in 06/2020 at [place] requiring SNF placement w/ recent d/c ~ 1 week ago, HTN, HLD, Hx DVT on coumadin, Depression and Anxiety, Chronic COPD w/ Former Tobacco use, GERD, Diabetes mellitus type II who presents to the [facility] ED on 10/24/20 with history of exertional dyspnea, orthopnea, PND, notably worsened BL LE edema in addition to wheezing without marked cough requiring notable inhaler usage at home with some improvement. She has been COVID vaccinated. Work-up in the ED included T 98, heart 74, BP 156/70, respiratory rate 16, 94% on room air, CBC with WBC 7.2, hemoglobin 11, platelet 248 without marked shift, BMP with chloride 110, BUN/creatinine 47/1.60, glucose 169, troponin 25.5, BNP 1598, chest x-ray with status post median sternotomy presentation, small bilateral pleural effusions with borderline cardiomegaly and mild pulmonary vascular congestion, EKG w/ SR with LBBB without acute evidence of ischemia. In the ED patient ministered Lasix 80 mg x 1 as well as DuoNeb therapy and Solu-Medrol. She notes her recently passed in August so she has been stressed and more fatigued. Since discharge to home with outpatient home health she has continued to do more poorly but does state that at the skilled facility just prior to discharge she started having more shortness of breath but required no oxygen at that time. She does state some improvement with aerosols but has been requiring them every 4 hours nearly. [facility] Medical History (Updated 10/24/20 @ 17:[address] Xochitl Kearney MD) (HFpEF) heart failure with preserved ejection fraction Acute respiratory failure with hypoxia and hypercapnia (07/13/20) Allergic rhinitis Anxiety disorder Atherosclerotic heart disease of [place] coronary artery without angina pectoris Cardiomyopathy, ischemic Chronic diastolic (congestive) heart failure Chronic renal failure, stage 3 (moderate) COPD exacerbation Debility Depression Diabetes mellitus, type 2 DVT of lower extremity (deep venous thrombosis) (2012) Essential hypertension Gastroesophageal reflux disease with hiatal hernia History of non-ST elevation myocardial infarction (NSTEMI) (07/13/20) Hyperlipidemia Left bundle branch block Lung nodule Menieres disease Obesity (BMI 30-39.9) Pulmonary edema Stage 2 moderate COPD by GOLD classification Home Medications clonazepam 1 mg PO TID PRN PRN 08/14/15 [History Last Taken 07/12/20 20:00] famotidine 20 mg PO BID 08/14/15 [History Last Taken 07/12/20 07:00] flash glucose scanning reader #1 ea 01/29/20 [Rx Last Taken Unknown] flash glucose sensor #2 ea 01/29/20 [Rx Last Taken Unknown] pen needle, diabetic 32 gauge x #100 ea 01/29/20 [Rx Last Taken Unknown] blood sugar diagnostic #50 ea 01/30/20 [Rx Last Taken Unknown] acetaminophen 325 mg tablet 650 mg PO Q4H PRN tablet 08/17/20 [History Last Taken Unknown] albuterol sulfate 90 mcg/actuation aerosol inhaler 1 puff INHALATION Q4H PRN gm 08/17/20 [History Last Taken Unknown] aspirin 81 mg tablet,delayed release 81 mg PO DAILY 08/17/20 [History Last Taken Unknown] atorvastatin 40 mg tablet 40 mg PO QHS 08/17/20 [History Last Taken Unknown] fenofibrate 160 mg tablet 160 mg PO DAILY 08/17/20 [History Last Taken Unknown] furosemide 40 mg tablet 40 mg PO DAILY tablet 08/17/20 [History Last Taken Unknown] insulin glargine 100 unit/mL (3 mL) subcutaneous pen See Rx Instructions SC BID ml 08/17/20 [History Last Taken Unknown] insulin lispro 100 unit/mL subcutaneous pen See Rx Instructions SC QAC ml 08/17/20 [History Last Taken Unknown] ipratropium bromide 0.02 % solution for inhalation 2.5 ml INHALATION TID PRN ml 08/17/20 [History Last Taken Unknown] polyethylene glycol 3350 17 gram/dose oral powder 17 gm PO DAILY 08/17/20 [History Last Taken Unknown] sennosides 8.6 mg-docusate sodium 50 mg capsule 1 tab-cap PO BID 08/17/20 [History Last Taken Unknown] sertraline 50 mg tablet 50 mg PO DAILY 08/17/20 [History Last Taken Unknown] warfarin 1 mg tablet 2.5 mg PO QPM tablet 08/17/20 [History Last Taken Unknown] carvedilol 6.25 mg PO BID 10/24/20 [History Last Taken Unknown] Allergy/AdvReac Type Severity Reaction Status Date / Time Penicillins Allergy Angioedema Verified 10/24/20 13:52 rosiglitazone maleate Allergy hyperglycem Verified 10/24/20 13:52 [From Avandia] ia cephalexin [From Keflex] AdvReac Diarrhea Verified 10/24/20 13:52 doxycycline AdvReac Diarrhea Verified 10/24/20 13:52 prednisone AdvReac hyperglycem Verified 10/24/20 13:52 ia Sulfa (Sulfonamide AdvReac Unknown Verified 10/24/20 13:52 Antibiotics) PAPER TAPE AdvReac Rash Uncoded 10/24/20 13:53 Family History Sister Lupus Arthritis Brother Colon cancer Cancer Prostate Cancer Arthritis Father Diabetes Heart disease Mother Hypertension Surgical History (Updated 10/24/20 @ 17:[address] Xochitl Kearney MD) H/O coronary artery bypass surgery (07/27/20) History of History of cholecystectomy History of left heart catheterization (07/19/20) Social History (Updated 10/24/20 @ 17:[address] Xochitl Kearney MD) household members: other details: Living with her grandson who works 2nd shift. passed 08/2020. Smoking Status: Former smoker how long ago did patient quit smokin alcohol intake: never substance use type: does not use caffeine: No what type of physical activity do you participate in: none frequency: does not exercise seatbelt use: always ROS ROS Narrative Admission Review of Systems: CONSTITUTIONAL: No weight loss, fever, chills, + weakness or fatigue. HEENT: Eyes: No visual loss, blurred vision, double vision or yellow sclerae. Ears, Nose, Throat: No hearing loss, sneezing, congestion, runny nose or sore throat. SKIN: No rash or itching, lesions, wounds. CARDIOVASCULAR: + Edema, Orthopnea, PND. No chest pain, chest pressure or chest discomfort, palpitations, syncopal events. RESPIRATORY:+ shortness of breath, wheezing, minimal cough, no sputum, hemoptysis. GASTROINTESTINAL: No anorexia, nausea, vomiting or diarrhea, abdominal pain, melena, BRBPR. GENITOURINARY: No dysuria, frequency, urgency or retention. NEUROLOGICAL: No headache, dizziness, syncope, paralysis, ataxia, numbness or tingling in the extremities, focal weakness, change in bowel or bladder control, seizure. MUSCULOSKELETAL: + muscle, back pain, joint pain or stiffness. HEMATOLOGIC: + anemia, bleeding or bruising. LYMPHATICS: No enlarged nodes. No history of splenectomy. PSYCHIATRIC: + history of depression or anxiety. ENDOCRINOLOGIC: No reports of sweating, cold or heat intolerance. No polyuria or polydipsia. ALLERGIES: + history of asthma, hives, eczema or rhinitis. Vital Signs Vital Signs Vital Signs: 10/24/20 13:49 10/24/20 14:49 10/24/20 15:06 Temperature 98.0 F Temperature Source Temporal Pulse Rate 74 72 Respiratory Rate 16 25 H Respiratory Effort Short of Breath Respiratory Pattern Tachypnea Tachypnea Blood Pressure 156/70 H Blood Pressure Mean 98 Pulse Ox 94 Oxygen Delivery Method Room Air Room Air 10/24/20 16:52 10/24/20 16:58 Temperature 98 F Temperature Source Temporal Pulse Rate 70 72 Respiratory Rate 18 20 H Respiratory Effort Respiratory Pattern Blood Pressure 149/73 H Blood Pressure Mean 98 Pulse Ox 94 93 Oxygen Delivery Method Room Air Room Air Weight Weight: 214 lb Body Mass Index (BMI) 36.7 Physical Exam Narrative Physical Examination: General: Awake, alert, oriented x 3 and cooperative, seated upright in the ED bed, fatigued, tearful with discussions and does appear depressed. Skin: Normal color, normal turgor, no icterus, no cyanosis except the left breast with small healing wound with serosanguineous drainage, nonfoul smelling. HEENT: AT/NC, EOMI, PERRLA, mildly dry MM, no carotid bruits, +JVD noted. Lungs: Diminished breath sounds, greater bases, mild rales bilaterally, occasional end expiratory wheeze, diminished, no rhonchi. Heart: Regular rate and rhythm; no gallop, rub audible. Abdomen: Soft, NTTP, ND, normal BS, no HSM. Extremities: No cyanosis or clubbing, notable bilateral pedal to proximal gutierrez 3+ pitting edema. Neurological: Patient awake, alert, oriented as noted, cognitive function intact; pupils equally reactive to light and accommodation, cranial nerves II-XII grossly normal, moving all 4 extremities, no focal deficits, strength moderately to severely global decrease secondary to acute presentation. Psychiatric: Affect appears fatigued, tearful with discussions, appears depressed and has underlying anxiety, recent of her 08/2020. Results Lab / Micro Data Result Diagrams: 10/24/20 15:00 10/24/20 15:00 Labs: Laboratory Results - last 24 hr 10/24/20 10/24/20 10/24/20 15:00 15:00 15:00 WBC 7.2 RBC 3.96 L Hgb 11.0 L Hct 36.4 L MCV 91.9 MCH 27.8 MCHC 30.2 L RDW Std Deviation 58.6 H RDW Coeff of [place] 17.4 H Plt Count 248 MPV 12.1 H Immature Gran % (Auto) 0.300 Neut % (Auto) 60.9 Lymph % (Auto) 23.9 Fleming % (Auto) 11.1 H Eos % (Auto) 3.2 Baso % (Auto) 0.6 Absolute Neuts (auto) 4.4 Absolute Lymphs (auto) 1.72 Nucleated RBC % 0 PT INR Sodium 143 Potassium 4.3 Chloride 110 H Carbon Dioxide 27.0 Anion Gap 6 BUN 47 H Creatinine 1.60 H Estim Creat Clear Calc 25.83 Est GFR (MDRD) Af Amer 40 L Est GFR (MDRD) Non-Af 33 L BUN/Creatinine Ratio 29.4 H Glucose 169 H Calcium 9.2 Troponin I High Sens 25.5 B-Natriuretic Peptide 1598.0 H 10/24/20 16:30 WBC RBC Hgb Hct MCV MCH MCHC RDW Std Deviation RDW Coeff of [place] Plt Count MPV Immature Gran % (Auto) Neut % (Auto) Lymph % (Auto) Fleming % (Auto) Eos % (Auto) Baso % (Auto) Absolute Neuts (auto) Absolute Lymphs (auto) Nucleated RBC % PT 29.0 H INR 2.8 Sodium Potassium Chloride Carbon Dioxide Anion Gap BUN Creatinine Estim Creat Clear Calc Est GFR (MDRD) Af Amer Est GFR (MDRD) Non-Af BUN/Creatinine Ratio Glucose Calcium Troponin I High Sens B-Natriuretic Peptide Radiology Impression Chest X-Ray 10/24/20 14:32 IMPRESSION: Borderline cardiomegaly with mild pulmonary vascular congestion. Small bilateral pleural effusions. No pneumothorax. Trachea midline. Status post median sternotomy. Electronically Signed: Stanton Clarke MD at 15:50 EDT Tel , Service support , Assessment & Plan Assessment/Plan (1) CHF (congestive heart failure): QUALIFIERS: Heart failure type: diastolic Heart failure chronicity: acute Qualified Code(s): I50.31 - Acute diastolic (congestive) heart failure (2) COPD (chronic obstructive pulmonary disease): QUALIFIERS: COPD type: COPD with acute exacerbation Qualified Code(s): J44.1 - Chronic obstructive pulmonary disease with (acute) exacerbation PLAN: The patient is a 75 y/o F w/ PMHx: CKD stage III, Diastolic CHF, Ischemic Cardiomyopathy, CAD s/p CABG x 3 in 06/2020 at [place] requiring SNF placement w/ recent d/c ~ 1 week ago, HTN, HLD, Hx DVT on coumadin, Depression and Anxiety, Chronic COPD w/ Former Tobacco use, GERD, Diabetes mellitus type II who presents to the [facility] ED on 10/24/20 with history of exertional dyspnea, orthopnea, PND, notably worsened BL LE edema in addition to wheezing without marked cough requiring notable inhaler usage at home with some improvement. 1. Acute Decompensated Presumed Diastolic CHF, Ischemic Cardiomyopathy: CXR obtained in the ED w/ evidence CHF exacerbation. Patient administered IV lasix in the ED, will admit to PCU, maintain on cardiac telemetry, obtain cardiac enzyme series, obtain serial EKGs, continue IV lasix diuresis, monitor I/Os, continue medical therapy, obtain TSH and magnesium level. Obtain ECHO, TREVOR wraps with BL LE elevation, consider Cardiology consultation pending further evaluation and work-up. 2. Acute on chronic COPD exacerbation: CXR w/ chronic changes with evidence #1, maintain on oxygen with wean as tolerated to room air, continue ATC duonebs, PRN albuterol, IV methylprednisolone with prednisone transition as appropriate with close BS monitoring given history of hyperglycemia with steroid usage, HOB, IS parameters, defer abx given no marked WBC elevation, L shift or fever, pending procalcitonin, sputum culture. 3. CAD: s/p recent 06/2020 [place] CABG x 3 with prolonged SNF placement afterwards, continue Coumadin with INR trending as noted, aspirin, statin, Coreg, not on TREVOR inhibitor or ARB per current list. 4. Anxiety and depression, uncontrolled: We will continue patient home sertraline regimen but given recent events with of her and significant surgical intervention with prolonged detention facility stay as well as obvious depression during evaluation may need to consider increasing sertraline. Did discuss clergy visitation and she is highly amenable which will be arranged. Continue low-dose as needed clonazepam. 5. Diabetes mellitus type II: Will continue home insulin regimen however given usage of steroids and patient history of hypoglycemia with usage may need to increase underlying baseline insulin regimen pending further blood sugar assessment, ADA diet, accu checks w/ ISS. 6. Hypertension: Continue home regimen including Coreg, IV Lasix as noted with hold parameters as needed, PRN hydralazine. 7. Hyperlipidemia: We will continue patient statin and fenofibrate regimen, FLP in AM. 8. History DVT: We will continue patient home Coumadin regimen with therapeutic INR upon presentation, 2.8, continue to trend. 9. Chronic Kidney Disease Stage III: Admission BUN/Cr 47/1.60, baseline renal function 1.5-1.8, repeat BMP in AM. 10. Former tobacco use: Encourage continued tobacco cessation. 11. GERD: We will continue patient on famotidine regimen. 12. DVT prophylaxis: SCDs, continue Coumadin with INR trending. 13. CODE status: Patient TORRI is her son she notes and living will is not in place and did discuss that if she is interested in having assistance with setting this up to request case management/social work involvement. Discussed CODE status at length including difference between FULL code, DNR-CCA and DNR-CC status. Following discussions about the differences in these status, requested very adamantly DNR-CCA, no intubation status. Advanced Care Planning Face to Face Time: 16 minutes. Charges/Coding Visit Charges Inpatient E&M: 64491 Init Hosp L3 Procedures Hospitalists Procedures: 73660 Advncd Care Plan 30 Min
--- NOTE | 2020-10-24 17:05 | ED.RN ---
This RN attempted to contact pastor Gaffney per pt request. WVM will attempt to contact
[2020-10-24 17:57] LABS: Magnesium 2.1 mg/dL (1.6-2.6); Thyroid Stim Hormone (TSH) 3.02 uIU/mL (0.358-3.74)
--- NOTE | 2020-10-24 18:05 | ED.RN ---
Pastor Gaffney on the phone to talk with pt.
--- NOTE | 2020-10-24 18:23 | ECHOCS_ITS ---
Reason For Study: CHF Procedure This was a 2D Doppler, Color Flow transthoracic echocardiogram. The study was technically difficult. Contrast injection was performed. Exam performed portable in patient room. Left Ventricle Normal LV size. The estimated ejection fraction is 40 %. Mid-Anterior : Akinetic. Mid-anteroseptal : Akinetic. There is moderate global hypokinesis of the left ventricle. Atria The left atrium is mildly enlarged. Normal right atrium. Left to right shunt. Mitral Valve There is mild mitral annular calcification. Mild (1+) eccentric mitral valve insufficiency. Aortic Valve Trisinus/trileaflet aortic valve. Pulmonic Valve The pulmonic valve is not well visualized. Great Vessels Normal aortic root. The pulmonary artery is normal size. Normal inferior vena cava. Pericardium/Pleural No pericardial effusion. Medication Diluted definity 2ml given slow IV push to enhance endocardial definition. Performed a rapid injection of agitated mix of 9 cc saline and 1cc air to assess for atrial septal defect. MMode/2D Measurements & Calculations LVIDd: 5.7 cm IVSd: 1.3 cm Ao root diam: 3.2 cm LVIDs: 4.6 cm LVPWd: 1.1 cm LA dimension: 4.8 cm FS: 18.7 % LAV(MOD-bp): 73.7 ml LA A4 area: 22.1 cm2 RA A4 area: 18.8 cm2 LAV(MOD-bp) Indexed: 36.4 ml/m2 LAV(MOD-sp2): 75.8 ml LAV(MOD-sp4): 69.3 ml Time Measurements MV dec time: 0.20 sec Doppler Measurements & Calculations MV E max harjit: 112.2 cm/sec Lat Peak E' Harjit: 8.6 cm/sec Med Peak E' Harjit: 3.7 cm/sec MV A max harjit: 91.1 cm/sec E/E' lat: 13.1 E/E' med: 30.0 MV E/A: 1.2 MV V2 max: 132.9 cm/sec MV P1/2t max harjit: 132.9 cm/sec Ao V2 max: 133.7 cm/sec MV max P.1 mmHg MV P1/2t: 89.8 msec Ao max P.2 mmHg MV V2 mean: 75.1 cm/sec MV dec slope: 433.6 cm/sec2 MV mean P.6 mmHg MVA(P1/2t): 2.5 cm2 MV V2 VTI: 35.2 cm LV V1 max: 88.5 cm/sec PA V2 max: 92.5 cm/sec LV V1 max P.1 mmHg ECHO/Echo Complete W/ Contrast Interpretation Summary Normal LV size. The estimated ejection fraction is 40 %. Mid-Anterior : Akinetic. Mid-anteroseptal : Akinetic. There is moderate global hypokinesis of the left ventricle. Contrast injection was performed. Ordering Physician: Xochitl Kearney Referring Physician: Rufus Blanco Performed By: Rick Downs RCS
[2020-10-24 18:56] LABS: Bedside Glucose 172 mg/dL (70-110)
[2020-10-24] MEDS: Furosemide 40 MG/4 ML Vial IV (19:03)
[2020-10-24] MEDS: 0.9% Saline Lock 10 ML Syringe IV ×2 (19:03→21:34)
[2020-10-24] MEDS: clonazePAM 1 MG Tablet PO (19:08)
[2020-10-24 19:21] LABS: Troponin-I HS 28.7 pg/mL (3.0-53.7)
[2020-10-24 20:56] LABS: Troponin-I HS 28.8 pg/mL (3.0-53.7)
[2020-10-24] MEDS: Senna/Docusate Sodium 1 Tablet PO (21:30)
[2020-10-24] MEDS: Carvedilol 6.25 MG Tablet PO (21:30)
[2020-10-24] MEDS: Atorvastatin Calcium 40 MG Tablet PO (21:30)
[2020-10-24] MEDS: Insulin Lispro 100 UNIT/ML INSULN.PEN SC (21:31)
[2020-10-24 22:25] LABS: Bedside Glucose 243 mg/dL (70-110)
[2020-10-25] VITALS (13 sets, daily range): BP systolic 127–151; BP diastolic 54–67; PULSE 65–84; RESP 18–20; TEMP 36.2–37.1; O2SAT 93–100
[2020-10-25 00:50] LABS: Troponin-I HS 27.1 pg/mL (3.0-53.7)
[2020-10-25] MEDS: Ipratropium/Albuterol Sulfate 3 ML AMPUL.NEB INHALATION ×5 (02:41→18:54)
[2020-10-25 06:32] LABS: Absolute Lymphocyte Count 0.77 X10^3/uL (0.83-4.51); Absolute Neutrophil Count 4.2 X10^3/uL (2.0-7.7); Hematocrit 34.4 % (37-47); Hemoglobin 10.7 g/dL (12.0-15.0); Lymphocyte # 0.77 X10^3/ul (0.83-4.51); Lymphocyte % 15.3 % (19-41); Mean Corp Hgb Conc 31.1 g/dL (32-36); Mean Corpuscular Volume 90.1 fL (81-99); Mean Platelet Vol. 12.3 fl (6.2-12.0); Monocyte# 0.09 X10^3/uL; Monocyte% 1.8 % (0-10); NRBC Flagged by Analyzer 0 % (0-5); Neutrophil # 4.16 X10^3/uL (2.7-7.7); Neutrophil % 82.5 % (47-70); Platelet Count 237 K/mm3 (150-450); RBC Distribution Width CV 17.2 % (11.6-14.6); RBC Distribution Width SD 56.5 fl (35.1-43.9); Red Blood Count 3.82 M/mm3 (4.2-5.4)
[2020-10-25 06:42] LABS: International Normalized Ratio 2.7
[2020-10-25] MEDS: Insulin Lispro 100 UNIT/ML INSULN.PEN SC ×4 (06:46→21:17)
[2020-10-25 06:55] LABS: Bedside Glucose 245 mg/dL (70-110)
[2020-10-25 07:01] LABS: AST(SGOT) 21 U/L (15-37); Alanine Aminotransfer ALT/SGPT 35 U/L (13-56); Albumin, Serum 3.2 g/dL (3.2-5.0); Alkaline Phosphatase 41 U/L (45-117); Anion Gap 7 (5-15); BUN 45 mg/dL (7-18); Calcium,Total 8.8 mg/dL (8.5-10.1); Chloride 106 mmol/L (98-107); Cholesterol 140 mg/dL (200); Creatinine, Serum 1.55 mg/dL (0.55-1.02); EST Glomerular Filtration Rate 35 mL/min (>60); Est Glom Filt Rate - Afr Amer 42 mL/min (>60); Estimated Creatinine Clearance 27.78 ml/min; Globulin 3.3 g/dL (2.2-4.2); Glucose 281 mg/dL (74-106); High Density Lipoprotein 36 mg/dL; Protein, Total 6.5 g/dL (6.4-8.2); Sodium Level 140 mmol/L (136-145); Triglycerides 118 mg/dL; Very Low Density Lipoprotein 24 mg/dL (5-40)
[2020-10-25] MEDS: Aspirin E.C. 81 MG Tablet PO (08:21)
[2020-10-25] MEDS: Fenofibrate 145 MG Tablet PO (08:21)
[2020-10-25] MEDS: Furosemide 40 MG/4 ML Vial IV ×2 (08:21→17:50)
[2020-10-25] MEDS: Carvedilol 6.25 MG Tablet PO ×2 (08:21→15:58)
[2020-10-25] MEDS: Famotidine 20 MG Tablet PO (08:22)
[2020-10-25] MEDS: Glucerna Shake 120 ML LIQUID PO ×2 (08:23→13:39)
[2020-10-25] MEDS: Sertraline 50 MG Tablet PO (08:23)
[2020-10-25] MEDS: Senna/Docusate Sodium 1 Tablet PO ×2 (08:23→21:10)
--- NOTE | 2020-10-25 11:36 | PCM.PN.HOSP ---
Documented by User: Elvis ANNE 10/25/20 12:05 Subjective Subjective Patient is a 75-year-old female comfortably resting in bed, alert and oriented x3. Patient reports moderate improvement in her shortness of breath from admission. Denies chest pain, shortness of breath, hemoptysis, sputum production, palpitations, fever, chills, N/V/D. Objective Data Objective Data Vital Signs: Vital Signs Temp Pulse Resp BP Pulse Ox 98.7 F 71 18 127/55 H 93 10/25/20 10:00 10/25/20 10:00 10/25/20 10:00 10/25/20 10:00 10/25/20 10:00 Oxygen Flow Rate (L/min) 1 Oxygen Delivery Method Nasal Cannula Weight: 217 lb 9.54 oz Body Mass Index (BMI) 35.2 Intake & Output: Intake and Output for Last 24 Hours 10/23/20 10/24/20 10/25/20 23:59 23:59 23:59 Intake Total 360 / 360 Output Total 1050 / 1050 Balance -690 / -690 Lab / Micro Data Result Diagrams: 10/25/20 06:08 10/25/20 06:08 Labs: Laboratory Results - last 24 hr 10/24/20 10/24/20 10/24/20 15:00 15:00 15:00 WBC 7.2 RBC 3.96 L Hgb 11.0 L Hct 36.4 L MCV 91.9 MCH 27.8 MCHC 30.2 L RDW Std Deviation 58.6 H RDW Coeff of [place] 17.4 H Plt Count 248 MPV 12.1 H Immature Gran % (Auto) 0.300 Neut % (Auto) 60.9 Lymph % (Auto) 23.9 [place] % (Auto) 11.1 H Eos % (Auto) 3.2 Baso % (Auto) 0.6 Absolute Neuts (auto) 4.4 Absolute Lymphs (auto) 1.72 Nucleated RBC % 0 PT INR Sodium 143 Potassium 4.3 Chloride 110 H Carbon Dioxide 27.0 Anion Gap 6 BUN 47 H Creatinine 1.60 H Estim Creat Clear Calc 25.83 Est GFR (MDRD) Af Amer 40 L Est GFR (MDRD) Non-Af 33 L BUN/Creatinine Ratio 29.4 H Glucose 169 H Calcium 9.2 Magnesium Total Bilirubin AST ALT Alkaline Phosphatase Troponin I High Sens 25.5 B-Natriuretic Peptide 1598.0 H Total Protein Albumin Globulin Albumin/Globulin Ratio Triglycerides Cholesterol LDL Cholesterol VLDL Cholesterol HDL Cholesterol Procalcitonin TSH POC Glucose 10/24/20 10/24/20 10/24/20 15:00 16:30 17:56 WBC RBC Hgb Hct MCV MCH MCHC RDW Std Deviation RDW Coeff of [place] Plt Count MPV Immature Gran % (Auto) Neut % (Auto) Lymph % (Auto) [place] % (Auto) Eos % (Auto) Baso % (Auto) Absolute Neuts (auto) Absolute Lymphs (auto) Nucleated RBC % PT 29.0 H INR 2.8 Sodium Potassium Chloride Carbon Dioxide Anion Gap BUN Creatinine Estim Creat Clear Calc Est GFR (MDRD) Af Amer Est GFR (MDRD) Non-Af BUN/Creatinine Ratio Glucose Calcium Magnesium 2.1 Total Bilirubin AST ALT Alkaline Phosphatase Troponin I High Sens B-Natriuretic Peptide Total Protein Albumin Globulin Albumin/Globulin Ratio Triglycerides Cholesterol LDL Cholesterol VLDL Cholesterol HDL Cholesterol Procalcitonin 0.10 H TSH 3.02 POC Glucose 10/24/20 10/24/20 10/24/20 18:39 18:50 20:27 WBC RBC Hgb Hct MCV MCH MCHC RDW Std Deviation RDW Coeff of [place] Plt Count MPV Immature Gran % (Auto) Neut % (Auto) Lymph % (Auto) [place] % (Auto) Eos % (Auto) Baso % (Auto) Absolute Neuts (auto) Absolute Lymphs (auto) Nucleated RBC % PT INR Sodium Potassium Chloride Carbon Dioxide Anion Gap BUN Creatinine Estim Creat Clear Calc Est GFR (MDRD) Af Amer Est GFR (MDRD) Non-Af BUN/Creatinine Ratio Glucose Calcium Magnesium Total Bilirubin AST ALT Alkaline Phosphatase Troponin I High Sens 28.7 28.8 B-Natriuretic Peptide Total Protein Albumin Globulin Albumin/Globulin Ratio Triglycerides Cholesterol LDL Cholesterol VLDL Cholesterol HDL Cholesterol Procalcitonin TSH POC Glucose 172 H 10/24/20 10/25/20 10/25/20 21:25 00:26 06:08 WBC 5.0 RBC 3.82 L Hgb 10.7 L Hct 34.4 L MCV 90.1 MCH 28.0 MCHC 31.1 L RDW Std Deviation 56.5 H RDW Coeff of [place] 17.2 H Plt Count 237 MPV 12.3 H Immature Gran % (Auto) 0.400 Neut % (Auto) 82.5 H Lymph % (Auto) 15.3 L [place] % (Auto) 1.8 Eos % (Auto) 0.0 Baso % (Auto) 0.0 Absolute Neuts (auto) 4.2 Absolute Lymphs (auto) 0.77 L Nucleated RBC % 0 PT INR Sodium Potassium Chloride Carbon Dioxide Anion Gap BUN Creatinine Estim Creat Clear Calc Est GFR (MDRD) Af Amer Est GFR (MDRD) Non-Af BUN/Creatinine Ratio Glucose Calcium Magnesium Total Bilirubin AST ALT Alkaline Phosphatase Troponin I High Sens 27.1 B-Natriuretic Peptide Total Protein Albumin Globulin Albumin/Globulin Ratio Triglycerides Cholesterol LDL Cholesterol VLDL Cholesterol HDL Cholesterol Procalcitonin TSH POC Glucose 243 H 10/25/20 10/25/20 10/25/20 06:08 06:08 06:46 WBC RBC Hgb Hct MCV MCH MCHC RDW Std Deviation RDW Coeff of [place] Plt Count MPV Immature Gran % (Auto) Neut % (Auto) Lymph % (Auto) [place] % (Auto) Eos % (Auto) Baso % (Auto) Absolute Neuts (auto) Absolute Lymphs (auto) Nucleated RBC % PT 28.0 H INR 2.7 Sodium 140 Potassium 4.0 Chloride 106 Carbon Dioxide 27.0 Anion Gap 7 BUN 45 H Creatinine 1.55 H Estim Creat Clear Calc 27.78 Est GFR (MDRD) Af Amer 42 L Est GFR (MDRD) Non-Af 35 L BUN/Creatinine Ratio 29.0 H Glucose 281 H Calcium 8.8 Magnesium Total Bilirubin 0.40 AST 21 ALT 35 Alkaline Phosphatase 41 L Troponin I High Sens B-Natriuretic Peptide Total Protein 6.5 Albumin 3.2 Globulin 3.3 Albumin/Globulin Ratio 1.0 Triglycerides 118 Cholesterol 140 LDL Cholesterol 80 VLDL Cholesterol 24 HDL Cholesterol 36 L Procalcitonin TSH POC Glucose 245 H Micro: Microbiology 10/24/20 19:15 Mucosa - Nose Respiratory Panel (PCR) - Final Radiography Diagnostic Testing: Radiology Impression Chest X-Ray 10/24/20 14:32 IMPRESSION: Borderline cardiomegaly with mild pulmonary vascular congestion. Small bilateral pleural effusions. No pneumothorax. Trachea midline. Status post median sternotomy. Electronically Signed: Stanton Clarke MD at 15:50 EDT Tel , Service support , Physical Exam Const alert, oriented x3 and no apparent distress HEENT head/scalp atraumatic, moist oral mucous membranes and oropharynx normal Head and Scalp: normocephalic Eyes EOMs intact bilaterally and conjunctivae normal Neck no lymphadenopathy, supple and no JVD Resp normal respiratory effort, no retractions and no use of accessory muscles Cardio regular rate, regular rhythm, no murmurs and no JVD GI normal to inspection, nondistended, normoactive bowel sounds, soft to palpation and non-tender Extremity normal to inspection, full ROM and no clubbing, cyanosis or edema Skin no rashes or lesions noted, no wounds, skin turgor normal and no jaundice Neuro CN's II-XII intact bilaterally Psych affect normal Assessment & Plan Assessment/Plan (1) CHF (congestive heart failure): QUALIFIERS: Heart failure chronicity: acute Heart failure type: diastolic Qualified Code(s): I50.31 - Acute diastolic (congestive) heart failure (2) COPD (chronic obstructive pulmonary disease): QUALIFIERS: COPD type: COPD with acute exacerbation Qualified Code(s): J44.1 - Chronic obstructive pulmonary disease with (acute) exacerbation (3) Essential hypertension: (4) Hyperlipidemia: PLAN: Day 2: See subjective for patient presentation. Discharge planning: Case management/social work following. 1) Acute decompensated mixed sysotlic/diastolic CHF Patient reports mild improvement in her shortness of breath from admission. BNP on admission elevated to 1598. Chest x-ray on admission demonstrated mild cardiomegaly and pulmonary vascular congestion with small bilateral pleural effusions. Echocardiogram from 06/2020 demonstrates an estimated EF of 25%, severe segmental systolic dysfunction, stage I diastolic dysfunction, moderate pulmonary hypertension with a RVSP of 67 mmHg. Home medication list includes carvedilol and Lasix. Patient is not on ACEI/ARB or oxygen at home. Plan; echo ordered/pending, continue Antonio wraps with bilateral bilateral lower extremity elevation, continue home CHF regimen. 2) ischemic cardiomyopathy Plan as above. 3) acute on chronic COPD exacerbation Chest x-ray as above. Plan; continue oxygen per protocol, continue DuoNebs, continue albuterol as needed, continue IV methylprednisolone, sputum culture ordered/pending, continue to monitor CBC and BMP. 4) anxiety and depression Continue clonazepam. 5) DM 2 POC glucose currently 316, not within goal since admission. Plan; continue home insulin regimen, continue ADA diet, continue Accu-Cheks with sliding scale insulin, obtain hemoglobin A1c. 6) HTN Continue Coreg and Lasix, hydralazine as needed. 7) hyperlipidemia Continue statin and fenofibrate regimen. 8) history of DVT Continue home Coumadin regimen, INR is therapeutic at 2.8. 9) CKD stage III Stable, creatinine at baseline, continue to monitor BMP. 10) history of tobacco use Continue sensation encourage 11) GERD Continue famotidine. DVT prophylaxis -continue home Coumadin Patient seen by Elvis Harry PA-C, under the supervision of Dr. Uirarte. Documented by User: Dr. Dany Uriarte MD 10/25/20 14:50 Subjective Subjective Patient reports improvement in shortness of breath since admission. Denies chest pain but has history of coronary artery disease. 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 Complain of mild numbness of left chest probably damage of cutaneous nerve surgery. Objective Data Lab / Micro Data Result Diagrams: 10/25/20 06:08 10/25/20 06:08 Assessment & Plan Assessment/Plan (1) COPD (chronic obstructive pulmonary disease): QUALIFIERS: COPD type: COPD with acute exacerbation Qualified Code(s): J44.1 - Chronic obstructive pulmonary disease with (acute) exacerbation PLAN: This patient was seen in conjunction with DAYANA Ocampo. I have independently interviewed and examined the patient and reviewed pertinent history, examination findings, laboratory and plan of management. I have reviewed the note and agree with the documented findings with the few additional points. In brief, patient is admitted for acute on chronic systolic and diastolic heart failure and COPD exacerbation in PCU. On 1 to 2 L of oxygen. Heart failure core measures including intake and output, fluid restriction less than 1500 mL, daily weight monitoring, kidney and electrolytes monitoring. Patient on Lasix 40 mg IV twice daily, Coreg with control of blood pressure. Patient not candidate of ANTONIO/ARB secondary to kidney dysfunction, creatinine clearance 27 mL/min, stage IV CKD. EF 25% from previous echo of June 2020 with severe segmental systolic dysfunction. We will consult plasma processing centrifuge operator for diuresis management with diuretic stage IV CKD. Bicarb 27, K4.0. Other comorbidities as mentioned above I have discussed my assessment with DAYANA Ocampo and orders have been reviewed.
--- NOTE | 2020-10-25 11:45 | CASEMGMT ---
Per chart, palliative referral made on 07/15/20. RN MADHU called [facility]. Patient is established with [facility] and notified of hospitalization.
[2020-10-25 12:00] LABS: Bedside Glucose 316 mg/dL (70-110)
--- NOTE | 2020-10-25 12:13 | NURSING ---
wound photo: left breast
--- NOTE | 2020-10-25 12:40 | CASEMGMT ---
AUDRA LEUNG assessment: Face to Face with patient for initial transition planning/care coordination assessment. RN MADHU introduced self and role at [facility], pt voices understanding and consents to assessment. Pt is sitting up in bed in no distress on 1L nc. Pt is A/Ox4 and answers all questions appropriately. Pt states just discharged from [facility] 1 week ago after being there for approximately 11 weeks. Care providers, pharmacy, and demographics verified/updated. Presentation: Increased SOB, worse w/ exertion, denies CP,pressure Admitting dx: CHF, COPD PCP: Bella Specialists: Kvng puljeff; Carolyn cardio Preferred [facility]acy: [facility]it[facility] Living Will/HPOA: Pt has LW/HPOA and is aware that they are on file at [facility]. Pt states her sons, Mario Quinones and Osvaldo Nicholas, are HPOA's. LNOK: Mario Quinones, son; Osvaldo Nicholas, son; Melissa Banda, daughter Living Arrangements: Pt's grandson lives with her for now(moving out soon per pt) but works 2nd shift in apt with flight of stairs to 2nd floor and bathroom is upstairs. Pt states needs assist with ADL's. Transportation: Pt states family drives and states no transportation concerns. DME/HHC: Pt states has the following DME: walker, rollator, transport chair, grab bars, shower chair, and nebulizer. Pt states no need for any further DME. Pt states was set up with [facility] [place], PT/OT when discharged from [facility]. Pt states has CM, Nori Banegas, thru [facility]. Pt states has aide 3hours/day, 2 days/week and gets [employer] meals monthly. Pt has been to [facility]. Pt states some concerns with going home at discharge. Pt states does not want to go back to [facility] d/t lack diet choices. Pt states is retired. Pt does not smoke cigarettes(quit in 1994) or drink ETOH. Pt voices no further concerns/needs. CM to follow for PT/OT evals and any further discharge planning/needs. Advised pt to ask for CM if any further questions/concerns/needs arise, voices understanding. Pt Goal: Home Plan: TBD, pending PT/OT evals. S[place]en AUDRA LEUNG
[2020-10-25 13:23] LABS: Hemoglobin A1c 6.6 % (3.8-5.6)
[2020-10-25] MEDS: 0.9% Saline Lock 10 ML Syringe IV ×2 (13:39→21:09)
--- NOTE | 2020-10-25 14:42 | CASEMGMT ---
SW received a call from Nori Banegas with [facility]. She is patient's case advocate. Patient just left [address] last Sunday (10-18-20). She said patient gets aide services Sunday and Sunday from [facility] and she gets home delivered meals from [employer]. She is working on getting patient a stair glide. SW will let her know when patient is being discharged. Xi Barragan MSW KATHIE
[2020-10-25 16:11] LABS: Bedside Glucose 345 mg/dL (70-110)
[2020-10-25] MEDS: Atorvastatin Calcium 40 MG Tablet PO (21:09)
[2020-10-25] MEDS: clonazePAM 1 MG Tablet PO (21:21)
[2020-10-25] MEDS: Acetaminophen 325 MG Tablet 650 MG PO (21:21)
[2020-10-25 21:36] LABS: Bedside Glucose 297 mg/dL (70-110)
[2020-10-26] VITALS (14 sets, daily range): BP systolic 130–157; BP diastolic 50–72; PULSE 61–69; RESP 18–24; TEMP 36–36.8; O2SAT 90–96
[2020-10-26] MEDS: Ipratropium/Albuterol Sulfate 3 ML AMPUL.NEB INHALATION ×5 (03:07→18:57)
[2020-10-26] MEDS: 0.9% Saline Lock 10 ML Syringe IV ×5 (04:53→22:11)
[2020-10-26] MEDS: Insulin Lispro 100 UNIT/ML INSULN.PEN SC ×4 (06:24→22:07)
[2020-10-26 06:31] LABS: Bedside Glucose 223 mg/dL (70-110)
[2020-10-26 06:41] LABS: Absolute Lymphocyte Count 0.84 X10^3/uL (0.83-4.51); Absolute Neutrophil Count 6.7 X10^3/uL (2.0-7.7); Hematocrit 34.5 % (37-47); Hemoglobin 10.7 g/dL (12.0-15.0); Lymphocyte # 0.84 X10^3/ul (0.83-4.51); Lymphocyte % 10.5 % (19-41); Mean Corpuscular Hgb 27.9 pg (27.0-32.0); Mean Corpuscular Volume 90.1 fL (81-99); Mean Platelet Vol. 12.5 fl (6.2-12.0); Monocyte# 0.43 X10^3/uL; Monocyte% 5.4 % (0-10); NRBC Flagged by Analyzer 0 % (0-5); Neutrophil # 6.66 X10^3/uL (2.7-7.7); Neutrophil % 83.6 % (47-70); Platelet Count 248 K/mm3 (150-450); RBC Distribution Width SD 55.7 fl (35.1-43.9); Red Blood Count 3.83 M/mm3 (4.2-5.4)
[2020-10-26 07:18] LABS: Anion Gap 6 (5-15); BUN 58 mg/dL (7-18); BUN/Creat Ratio 31.7 RATIO (10-20); Chloride 102 mmol/L (98-107); Creatinine, Serum 1.83 mg/dL (0.55-1.02); EST Glomerular Filtration Rate 29 mL/min (>60); Est Glom Filt Rate - Afr Amer 35 mL/min (>60); Estimated Creatinine Clearance 23.53 ml/min; Glucose 252 mg/dL (74-106); Potassium 4.3 mmol/L (3.5-5.1); Sodium Level 140 mmol/L (136-145)
--- NOTE | 2020-10-26 10:16 | PCM.CONS.R ---
Assessment & Plan Assessment/Plan (1) KIT (acute kidney injury): PLAN: The patient likely has KIT from cardiorenal syndrome. Since the patient is still volume overloaded, I would continue IV furosemide for another day. We may have to allow serum creatinine of 1.8 up to 2.0 mg/dL to keep the patient compensated from a heart failure standpoint. I will check urine indices. I will keep an eye on her renal function while we are diuresing the patient. There is no urgent need for kidney replacement therapy at this point. Current medications are reviewed. They are all appropriately dosed from the renal standpoint. (2) Chronic kidney disease, stage 4 (severe): PLAN: Baseline serum creatinine appears to be around 1.5-1.7 prior to admission. Her true GFR may be lower than what is suggested by prior baseline serum creatinine since she was likely volume overloaded when these lab tests were obtained. See above. I will check urine protein to creatinine ratio. I suspect the cause of her CKD is diabetic kidney disease. (3) HFrEF (heart failure with reduced ejection fraction): PLAN: Ejection fraction has improved from 25% prior to CABG to 40% on echocardiogram done on 10/24/2020. I agree with treatment with furosemide at the current dose. The patient is also on carvedilol. Hold off on using ANTONIO inhibitor or ARB for now since the patient has fluctuating renal function. I am okay with adding hydralazine/nitrate if this would help with HFr EF. (4) Essential hypertension: PLAN: BP is reasonably controlled yesterday. BP is higher today, and I would monitor this. Continue current medication including carvedilol. I would recommend adding hydralazine/nitrate which could also help with HfrEF. Will defer to primary service and cardiology. (5) Anemia: PLAN: Hemoglobin has been stable at 10.7 g/dL. I suspect some of the anemia could be due to recent hospitalization. However, GFR is low enough that anemia can be due to chronic kidney disease as well. At this point, there is no need for DICK from the nephrology standpoint since hemoglobin is still above 10 g/dL. HPI Consult Data Date of Consult: 10/26/20 HPI Narrative Reason for Consultation: Acute kidney injury on chronic kidney disease HPI Narrative: VAMSHI MARTIN, is a 75-year-old woman with past history of CAD status post CABG in June 2020 ([facility]), heart failure with reduced ejection fraction due to ischemic cardiomyopathy, COPD, hypertension, GERD, and type 2 diabetes mellitus. The patient was sent to snf facility ([facility]) after her CABG surgery in June. She returned home about 1 week ago. The patient tells me that she has become more dyspneic, especially on exertion even before she was sent home from [facility]. Over the past week since she has been home, shortness of breath has worsened associated with increasing edema of the lower extremities. The patient also complains of orthopnea. There was no chest pain or pressure prior to admission. The patient feels better today compared to prior to admission in terms of her dyspnea. She denies current nausea or vomiting. There has been no diarrhea. She denies lower urinary tract symptoms. There has been no gross hematuria. The patient denies chronic use of NSAIDs since she has been home. The patient does complain of anorexia although appetite has improved since admission. Nephrology is asked to see the patient because of acute kidney injury on chronic kidney disease. Serum creatinine has increased to 1.83 mg/dL today from creatinine of 1.55 mg/dL yesterday. Review of prior records reveals that serum creatinine has been around 1.5 to 1.7 mg/dL in the past few weeks. Renal ultrasound from June 2020 did not reveal any obstruction. The patient has bilateral renal simple cyst. Kidneys are normal size. [facility] Medical History (Updated 10/26/20 @ 10:[address] Basim Jose MD) (HFpEF) heart failure with preserved ejection fraction Allergic rhinitis Anxiety disorder Atherosclerotic heart disease of [place] coronary artery without angina pectoris Cardiomyopathy, ischemic Chronic diastolic (congestive) heart failure Chronic renal failure, stage 3 (moderate) COPD exacerbation Debility Depression Diabetes mellitus, type 2 DVT of lower extremity (deep venous thrombosis) (2012) Essential hypertension Gastroesophageal reflux disease with hiatal hernia History of non-ST elevation myocardial infarction (NSTEMI) (07/13/20) Hyperlipidemia Left bundle branch block Lung nodule [place]ieres disease Obesity (BMI 30-39.9) Pulmonary edema Stage 2 moderate COPD by GOLD classification Home Medications clonazepam 1 mg PO TID PRN PRN 08/14/15 [History Last Taken 07/12/20 20:00] famotidine 20 mg PO BID 08/14/15 [History Last Taken 07/12/20 07:00] flash glucose scanning reader #1 ea 01/29/20 [Rx Last Taken Unknown] flash glucose sensor #2 ea 01/29/20 [Rx Last Taken Unknown] pen needle, diabetic 32 gauge x #100 ea 01/29/20 [Rx Last Taken Unknown] blood sugar diagnostic #50 ea 01/30/20 [Rx Last Taken Unknown] acetaminophen 325 mg tablet 650 mg PO Q4H PRN tablet 08/17/20 [History Last Taken Unknown] albuterol sulfate 90 mcg/actuation aerosol inhaler 1 puff INHALATION Q4H PRN gm 08/17/20 [History Last Taken Unknown] aspirin 81 mg tablet,delayed release 81 mg PO DAILY 08/17/20 [History Last Taken Unknown] atorvastatin 40 mg tablet 40 mg PO QHS 08/17/20 [History Last Taken Unknown] fenofibrate 160 mg tablet 160 mg PO DAILY 08/17/20 [History Last Taken Unknown] furosemide 40 mg tablet 40 mg PO DAILY tablet 08/17/20 [History Last Taken Unknown] insulin glargine 100 unit/mL (3 mL) subcutaneous pen See Rx Instructions SC BID ml 08/17/20 [History Last Taken Unknown] insulin lispro 100 unit/mL subcutaneous pen See Rx Instructions SC QAC ml 08/17/20 [History Last Taken Unknown] ipratropium bromide 0.02 % solution for inhalation 2.5 ml INHALATION TID PRN ml 08/17/20 [History Last Taken Unknown] polyethylene glycol 3350 17 gram/dose oral powder 17 gm PO DAILY 08/17/20 [History Last Taken Unknown] sennosides 8.6 mg-docusate sodium 50 mg capsule 1 tab-cap PO BID 08/17/20 [History Last Taken Unknown] sertraline 50 mg tablet 50 mg PO DAILY 08/17/20 [History Last Taken Unknown] warfarin 1 mg tablet 2.5 mg PO QPM tablet 08/17/20 [History Last Taken Unknown] carvedilol 6.25 mg PO BID 10/24/20 [History Last Taken Unknown] Allergy/AdvReac Type Severity Reaction Status Date / Time Penicillins Allergy Angioedema Verified 10/24/20 13:52 rosiglitazone maleate Allergy hyperglycem Verified 10/24/20 13:52 [From Avandia] ia cephalexin [From Keflex] AdvReac Diarrhea Verified 10/24/20 13:52 doxycycline AdvReac Diarrhea Verified 10/24/20 13:52 prednisone AdvReac hyperglycem Verified 10/24/20 13:52 ia Sulfa (Sulfonamide AdvReac Unknown Verified 10/24/20 13:52 Antibiotics) PAPER TAPE AdvReac Rash Uncoded 10/24/20 13:53 Family History Sister Lupus Arthritis Brother Colon cancer Cancer Prostate Cancer Arthritis Father Diabetes Heart disease Mother Hypertension Surgical History (Updated 10/24/20 @ 17:[address] Xochitl Kearney MD) H/O coronary artery bypass surgery (07/27/20) History of History of cholecystectomy History of left heart catheterization (07/19/20) Social History (Updated 10/24/20 @ 17:[address] Xochitl Kearney MD) household members: other details: Living with her grandson who works 2nd shift. passed 08/2020. Smoking Status: Former smoker how long ago did patient quit smokin alcohol intake: never substance use type: does not use caffeine: No what type of physical activity do you participate in: none frequency: does not exercise seatbelt use: always ROS Constitutional Constitutional: Reports anorexia, change in weight, fatigue and poor appetite; Denies chills, frequent falls or headache(s) Eyes Eyes: Reports change in vision bilateral; Denies double vision or erythema ENT HEENT: Reports systems reviewed and no addt'l complaints, except as documented Cardiovascular Cardiovascular: Reports as per HPI Respiratory/Chest Respiratory/Chest: Reports systems reviewed and no addt'l complaints, except as documented Gastrointestinal Gastrointestinal: Reports anorexia; Denies abdominal pain, change in stool character, constipation or diarrhea Genitourinary Genitourinary: Denies burning urination, change in urinary stream, difficulty urinating or dribbling Musculoskeletal Musculoskeletal: Reports systems reviewed and no addt'l complaints, except as documented Integumentary Integumentary: Denies change in hair, jaundice, nail changes, pruritus or rash Neurologic Neurologic: Denies abnormal hearing, abnormal speech, confusion or dizziness Psychiatric Psychiatric: Reports depression; Denies irritability Endocrine Endocrinology: Reports fatigue; Denies cold intolerance, excessive sweating, flushing, heat intolerance or polydipsia Hematologic/Lymphatic Hematologic/Lymphatic: Denies easy bleeding or easy bruising Allergic/Immunologic Allergic/Immunologic: Denies throat swelling, tongue swelling, hives or urticaria Physical Exam Narrative General: Alert and oriented x3. No apparent distress HEENT: Normocephalic atraumatic mucous membranes moist there, there is no mucosal erythema, PERRLA, EOMI, hearing is intact Neck: Supple, no JVD Heart: Normal S1 and S2. There is no rubs, murmur or gallops Lungs: Mild crackles at bases otherwise clear Abdomen: Normal active bowel sound. Abdomen is soft, nontender, no guarding or rebound Extremity: Lower extremities wrapped in Antonio bandage. There is 1+ pedal edema bilaterally Neurologic: No focal neurologic deficits. Cranial nerves II through XII are grossly intact Skin: No rash. Skin is warm and dry Psychiatric: Normal mood and affect Lab / Micro Data Result Diagrams: 10/26/20 05:54 10/26/20 05:54 Labs: Laboratory Results - last 24 hr 10/25/20 10/25/20 10/25/20 06:08 11:37 15:57 WBC RBC Hgb Hct MCV MCH MCHC RDW Std Deviation RDW Coeff of [place] Plt Count MPV Immature Gran % (Auto) Neut % (Auto) Lymph % (Auto) [place] % (Auto) Eos % (Auto) Baso % (Auto) Absolute Neuts (auto) Absolute Lymphs (auto) Nucleated RBC % Sodium Potassium Chloride Carbon Dioxide Anion Gap BUN Creatinine Estim Creat Clear Calc Est GFR (MDRD) Af Amer Est GFR (MDRD) Non-Af BUN/Creatinine Ratio Glucose Hemoglobin A1c 6.6 H Calcium POC Glucose 316 H 345 H 10/25/20 10/26/20 10/26/20 21:15 05:54 05:54 WBC 8.0 RBC 3.83 L Hgb 10.7 L Hct 34.5 L MCV 90.1 MCH 27.9 MCHC 31.0 L RDW Std Deviation 55.7 H RDW Coeff of [place] 17.0 H Plt Count 248 MPV 12.5 H Immature Gran % (Auto) 0.500 Neut % (Auto) 83.6 H Lymph % (Auto) 10.5 L [place] % (Auto) 5.4 Eos % (Auto) 0.0 Baso % (Auto) 0.0 Absolute Neuts (auto) 6.7 Absolute Lymphs (auto) 0.84 Nucleated RBC % 0 Sodium 140 Potassium 4.3 Chloride 102 Carbon Dioxide 32.0 Anion Gap 6 BUN 58 H Creatinine 1.83 H Estim Creat Clear Calc 23.53 Est GFR (MDRD) Af Amer 35 L Est GFR (MDRD) Non-Af 29 L BUN/Creatinine Ratio 31.7 H Glucose 252 H Hemoglobin A1c Calcium 9.0 POC Glucose 297 H 10/26/20 06:23 WBC RBC Hgb Hct MCV MCH MCHC RDW Std Deviation RDW Coeff of [place] Plt Count MPV Immature Gran % (Auto) Neut % (Auto) Lymph % (Auto) [place] % (Auto) Eos % (Auto) Baso % (Auto) Absolute Neuts (auto) Absolute Lymphs (auto) Nucleated RBC % Sodium Potassium Chloride Carbon Dioxide Anion Gap BUN Creatinine Estim Creat Clear Calc Est GFR (MDRD) Af Amer Est GFR (MDRD) Non-Af BUN/Creatinine Ratio Glucose Hemoglobin A1c Calcium POC Glucose 223 H Radiology Impression Echocardiogram 10/24/20 18:23 Interpretation Summary Normal LV size. The estimated ejection fraction is 40 %. Mid-Anterior : Akinetic. Mid-anteroseptal : Akinetic. There is moderate global hypokinesis of the left ventricle. Contrast injection was performed. Ordering Physician: Xochitl Kearney Referring Physician: Rufus Blanco Performed By: Rick Downs RCS
[2020-10-26] MEDS: Aspirin E.C. 81 MG Tablet PO (10:31)
[2020-10-26] MEDS: Carvedilol 6.25 MG Tablet PO ×2 (10:31→17:37)
[2020-10-26] MEDS: Famotidine 20 MG Tablet PO (10:32)
[2020-10-26] MEDS: Fenofibrate 145 MG Tablet PO (10:32)
[2020-10-26] MEDS: Sertraline 50 MG Tablet PO (10:32)
[2020-10-26] MEDS: Furosemide 40 MG/4 ML Vial IV ×2 (10:32→17:30)
[2020-10-26] MEDS: Senna/Docusate Sodium 1 Tablet PO ×2 (10:33→22:11)
--- NOTE | 2020-10-26 11:11 | PCM.PN.HOSP ---
Documented by User: Elvis ANNE 10/26/20 11:42 Subjective Subjective Patient is a 75-year-old female comfortably resting in bed, alert and orient x3. Patient reports continued improvement of her shortness of breath over the past 24 hours. Denies chest pain, palpitations, hemoptysis, sputum, fever, chills, N/V/D. Objective Data Objective Data Vital Signs: Vital Signs Temp Pulse Resp BP Pulse Ox 96.9 F L 67 22 H 157/72 H 95 10/26/20 03:04 10/26/20 07:49 10/26/20 10:13 10/26/20 03:04 10/26/20 07:03 Oxygen Flow Rate (L/min) 1 Oxygen Delivery Method Nasal Cannula Weight: 205 lb 11.06 oz Body Mass Index (BMI) 35.2 Intake & Output: Intake and Output for Last 24 Hours 10/24/20 10/25/20 10/26/20 23:59 23:59 23:59 Intake Total 540 / 540 Output Total 2600 / 2600 625 / 625 Balance -2059 / -2060 -625 / -625 Lab / Micro Data Result Diagrams: 10/26/20 05:54 10/26/20 05:54 Labs: Laboratory Results - last 24 hr 10/25/20 10/25/20 10/25/20 06:08 11:37 15:57 WBC RBC Hgb Hct MCV MCH MCHC RDW Std Deviation RDW Coeff of [place] Plt Count MPV Immature Gran % (Auto) Neut % (Auto) Lymph % (Auto) [place] % (Auto) Eos % (Auto) Baso % (Auto) Absolute Neuts (auto) Absolute Lymphs (auto) Nucleated RBC % Sodium Potassium Chloride Carbon Dioxide Anion Gap BUN Creatinine Estim Creat Clear Calc Est GFR (MDRD) Af Amer Est GFR (MDRD) Non-Af BUN/Creatinine Ratio Glucose Hemoglobin A1c 6.6 H Calcium POC Glucose 316 H 345 H 10/25/20 10/26/20 10/26/20 21:15 05:54 05:54 WBC 8.0 RBC 3.83 L Hgb 10.7 L Hct 34.5 L MCV 90.1 MCH 27.9 MCHC 31.0 L RDW Std Deviation 55.7 H RDW Coeff of [place] 17.0 H Plt Count 248 MPV 12.5 H Immature Gran % (Auto) 0.500 Neut % (Auto) 83.6 H Lymph % (Auto) 10.5 L [place] % (Auto) 5.4 Eos % (Auto) 0.0 Baso % (Auto) 0.0 Absolute Neuts (auto) 6.7 Absolute Lymphs (auto) 0.84 Nucleated RBC % 0 Sodium 140 Potassium 4.3 Chloride 102 Carbon Dioxide 32.0 Anion Gap 6 BUN 58 H Creatinine 1.83 H Estim Creat Clear Calc 23.53 Est GFR (MDRD) Af Amer 35 L Est GFR (MDRD) Non-Af 29 L BUN/Creatinine Ratio 31.7 H Glucose 252 H Hemoglobin A1c Calcium 9.0 POC Glucose 297 H 10/26/20 06:23 WBC RBC Hgb Hct MCV MCH MCHC RDW Std Deviation RDW Coeff of [place] Plt Count MPV Immature Gran % (Auto) Neut % (Auto) Lymph % (Auto) [place] % (Auto) Eos % (Auto) Baso % (Auto) Absolute Neuts (auto) Absolute Lymphs (auto) Nucleated RBC % Sodium Potassium Chloride Carbon Dioxide Anion Gap BUN Creatinine Estim Creat Clear Calc Est GFR (MDRD) Af Amer Est GFR (MDRD) Non-Af BUN/Creatinine Ratio Glucose Hemoglobin A1c Calcium POC Glucose 223 H Micro: Microbiology 10/25/20 08:35 Sputum, Expectorated/Coughed Respiratory Culture - Preliminary Appears to be normal respiratory zeynep. Further studies to follow. 10/24/20 19:15 Mucosa - Nose Respiratory Panel (PCR) - Final Radiography Diagnostic Testing: Radiology Impression Echocardiogram 10/24/20 18:23 Interpretation Summary Normal LV size. The estimated ejection fraction is 40 %. Mid-Anterior : Akinetic. Mid-anteroseptal : Akinetic. There is moderate global hypokinesis of the left ventricle. Contrast injection was performed. Ordering Physician: Xochitl Kearney Referring Physician: Rufus Blanco Performed By: Rick Downs RCS Physical Exam Const alert, oriented x3 and no apparent distress HEENT head/scalp atraumatic, moist oral mucous membranes and oropharynx normal Head and Scalp: normocephalic Eyes EOMs intact bilaterally and conjunctivae normal Neck no lymphadenopathy, supple and no JVD Resp normal respiratory effort, no retractions and no use of accessory muscles Cardio regular rate, regular rhythm, no murmurs and no JVD GI normal to inspection, nondistended, normoactive bowel sounds, soft to palpation and non-tender Extremity normal to inspection, full ROM and no clubbing, cyanosis or edema Skin no rashes or lesions noted, no wounds, skin turgor normal and no jaundice Neuro CN's II-XII intact bilaterally Psych affect normal Assessment & Plan Assessment/Plan (1) KIT (acute kidney injury): (2) HFrEF (heart failure with reduced ejection fraction): (3) COPD (chronic obstructive pulmonary disease): QUALIFIERS: COPD type: COPD with acute exacerbation Qualified Code(s): J44.1 - Chronic obstructive pulmonary disease with (acute) exacerbation (4) Hyperlipidemia: (5) Chronic diastolic (congestive) heart failure: PLAN: Day three: See subjective for patient presentation. Discharge planning; patient may be able to be discharged tomorrow pending renal function and shortness of breath. 1) Acute respiratory insufficiency secondary to decompensated sysotlic/diastolic CHF Echocardiogram from 10/17/2020 demonstrates normal LV size, moderate global hypokinesis of the left ventricle and an estimated EF of 40%. Most recent echocardiogram is improved compared to echocardiogram from June of this year. Nephrology consult obtained for diuresis consultation; continue current IV Lasix, obtain urine indices, monitor kidney function. Home medication list includes carvedilol and Lasix. Patient does not qualify for home oxygen. Patient not on ANTONIO/ARB due to chronic kidney dysfunction. Plan; continue IV Lasix twice daily,continue Antonio wraps with bilateral bilateral lower extremity elevation, continue home CHF regimen. 2) ischemic cardiomyopathy Plan as above. 3) acute on chronic COPD exacerbation Vital signs stable, patient currently satting 94% on 1 L via nasal cannula. Sputum cultures unremarkable. Plan; continue oxygen per protocol, continue DuoNebs, continue albuterol as needed, continue IV methylprednisolone. 4) anxiety and depression Continue clonazepam. 5) DM 2 Hemoglobin A1c 6.6, within goal despite elevated [id number] glucose testing. Plan; continue home insulin regimen, continue ADA diet, continue Accu-Cheks with sliding scale insulin, 6) HTN Continue Coreg and Lasix, hydralazine as needed. 7) hyperlipidemia Continue statin and fenofibrate regimen. 8) history of DVT Continue home Coumadin regimen, INR is therapeutic at 2.8. 9) CKD stage III Stable, creatinine at baseline, continue to monitor BMP, nephrology recommendations as above. 10) history of tobacco use Continue sensation encourage 11) GERD Continue famotidine. DVT prophylaxis -continue home Coumadin Patient seen by Elvis Harry PA-C, under the supervision of Dr. Uriarte. Documented by User: Dr. Dany Uriarte MD 10/26/20 14:55 Subjective Subjective Patient shortness of breath has improved. Creatinine 1.5-1.83. Discussed with the chemical reclamation equipment operator. Continue the same dose of Lasix. Her baseline creatinine runs around 1.7 Objective Data Lab / Micro Data Result Diagrams: 10/26/20 05:54 10/26/20 05:54 Physical Exam Narrative General: Alert, Oriented x3, Cooperative HEENT: Atraumatic, PERRLA, EOMI, Normocephalic Oral: No Gingival or Mucosal Lesions/ Ulcerations Neck: Supple, No JVD, Negative Carotid Bruits Lungs: Air entry diminished in bilateral lung bases. Crepitation in bilateral lung bases. Cardiovascular: Regular rate, Regular Rhythm, Normal S1, Normal S2, No murmurs Abdomen: Bowel Sounds Present, Soft, Non Tender, Non-Distended : No renal angle tenderness. No suprapubic tenderness. Extremities: Mild bilateral leg edema, Capillary Refill Less than 3 Seconds Skin: No rashes, No breakdown Musculoskeletal: No Tenderness to Palpation of Joints or Extremities Neurological: Cranial nerves II-XII grossly intact, Deep Tendon Reflexes 2+/4 and Symmetrical, Neuro grossly intact Psych/Mental Status: Normal Affect, Appropriate. Assessment & Plan Assessment/Plan (1) HFrEF (heart failure with reduced ejection fraction): (2) Atherosclerotic heart disease of [place] coronary artery without angina pectoris: PLAN: This patient was seen in conjunction with DAYANA Ocampo. I have independently interviewed and examined the patient and reviewed pertinent history, examination findings, laboratory and plan of management. I have reviewed the note and agree with the documented findings with the few additional points. In brief, patient is admitted for acute on chronic systolic and diastolic heart failure and COPD exacerbation in PCU. On 1 to 2 L of oxygen. Heart failure core measures including intake and output, fluid restriction less than 1500 mL, daily weight monitoring, kidney and electrolytes monitoring. Patient on Lasix 40 mg IV twice daily, Coreg with control of blood pressure. Patient not candidate of ANTONIO/ARB secondary to kidney dysfunction, creatinine clearance 27 mL/min, stage IV CKD. EF 25% from previous echo of June 2020 with severe segmental systolic dysfunction. We will consult chemical reclamation equipment operator for diuresis management with diuretic stage IV CKD. Bicarb 27, K4.0. 10/26: Discussed with the chemical reclamation equipment operator. Continue the same dose of Lasix 40 mg twice daily. Patient still has crepitations although her shortness of breath is improving. KIT from cardiorenal syndrome. Other comorbidities as mentioned above. Patient previous echo showed EF 25% which improved to 40% on 10/24 echo. Blood pressure is controlled. Hemoglobin 10.7. I have discussed my assessment with DAYANA Ocampo and orders have been reviewed. Charges/Coding Visit Charges Inpatient E&M: 62995 Subs Hosp L2
[2020-10-26 13:45] LABS: Bedside Glucose 333 mg/dL (70-110)
[2020-10-26 13:55] LABS: Protein, Urine (Random) 6.6 mg/dL (<11.9)
[2020-10-26 14:01] LABS: Urine Sodium 113 mmol/L (Not Establ.)
[2020-10-26 16:46] LABS: Bedside Glucose 294 mg/dL (70-110)
[2020-10-26] MEDS: Acetaminophen 325 MG Tablet 650 MG PO (16:47)
[2020-10-26] MEDS: Atorvastatin Calcium 40 MG Tablet PO (22:11)
[2020-10-26] MEDS: clonazePAM 1 MG Tablet PO (22:19)
[2020-10-26 22:50] LABS: Bedside Glucose 339 mg/dL (70-110)
[2020-10-27] VITALS (17 sets, daily range): BP systolic 136–143; BP diastolic 55–68; PULSE 53–82; RESP 15–20; TEMP 36.6–36.9; O2SAT 87–96
[2020-10-27] MEDS: Ipratropium/Albuterol Sulfate 3 ML AMPUL.NEB INHALATION ×4 (03:41→20:02)
[2020-10-27] MEDS: Insulin Lispro 100 UNIT/ML INSULN.PEN SC ×4 (06:42→21:45)
[2020-10-27] MEDS: 0.9% Saline Lock 10 ML Syringe IV ×2 (06:42→13:25)
[2020-10-27 06:51] LABS: Bedside Glucose 225 mg/dL (70-110)
[2020-10-27 07:00] LABS: Absolute Lymphocyte Count 0.85 X10^3/uL (0.83-4.51); Absolute Neutrophil Count 7.1 X10^3/uL (2.0-7.7); Basophil# 0.01 X10^3/uL; Basophil% 0.1 % (0-1); Hematocrit 36.9 % (37-47); Hemoglobin 11.7 g/dL (12.0-15.0); Lymphocyte # 0.85 X10^3/ul (0.83-4.51); Mean Corp Hgb Conc 31.7 g/dL (32-36); Mean Corpuscular Hgb 28.1 pg (27.0-32.0); Mean Corpuscular Volume 88.7 fL (81-99); Mean Platelet Vol. 12.5 fl (6.2-12.0); Monocyte# 0.47 X10^3/uL; Monocyte% 5.5 % (0-10); NRBC Flagged by Analyzer 0 % (0-5); Neutrophil # 7.14 X10^3/uL (2.7-7.7); Neutrophil % 83.8 % (47-70); Platelet Count 259 K/mm3 (150-450); RBC Distribution Width CV 16.9 % (11.6-14.6); RBC Distribution Width SD 55.1 fl (35.1-43.9); Red Blood Count 4.16 M/mm3 (4.2-5.4); White Blood Count 8.5 K/mm3 (4.4-11.0)
[2020-10-27 07:25] LABS: Albumin, Serum 3.3 g/dL (3.2-5.0); Anion Gap 5 (5-15); BUN 75 mg/dL (7-18); BUN/Creat Ratio 36.4 RATIO (10-20); Calcium,Total 9.1 mg/dL (8.5-10.1); Chloride 98 mmol/L (98-107); Creatinine, Serum 2.06 mg/dL (0.55-1.02); EST Glomerular Filtration Rate 25 mL/min (>60); Est Glom Filt Rate - Afr Amer 30 mL/min (>60); Estimated Creatinine Clearance 20.91 ml/min; Glucose 261 mg/dL (74-106); Potassium 4.4 mmol/L (3.5-5.1); Sodium Level 138 mmol/L (136-145)
[2020-10-27] MEDS: Carvedilol 6.25 MG Tablet PO ×2 (09:00→16:35)
[2020-10-27] MEDS: Fenofibrate 145 MG Tablet PO (09:00)
[2020-10-27] MEDS: Sertraline 50 MG Tablet PO (09:00)
[2020-10-27] MEDS: Senna/Docusate Sodium 1 Tablet PO ×2 (09:01→21:42)
[2020-10-27] MEDS: Aspirin E.C. 81 MG Tablet PO (09:01)
[2020-10-27] MEDS: Famotidine 20 MG Tablet PO (09:01)
--- NOTE | 2020-10-27 09:15 | PCM.PN.REN ---
Subjective Subjective Following for acute kidney injury on chronic kidney disease. The patient feels better in terms of breathing. She is less short of breath. She still has edema of the lower extremities. Objective Data Objective Data Vital Signs: Vital Signs Temp Pulse Resp BP Pulse Ox 98.4 F 71 19 H 143/59 H 95 10/27/20 03:30 10/27/20 07:35 10/27/20 07:35 10/27/20 03:30 10/27/20 07:58 Oxygen Flow Rate (L/min) 1 Oxygen Delivery Method Nasal Cannula Weight: 90.8 kg Body Mass Index (BMI) 35.2 Intake & Output: Intake and Output for Last 24 Hours 10/25/20 10/26/20 10/27/20 23:59 23:59 23:59 Intake Total 540 / 540 660 / 900 240 / 240 Output Total 2600 / 2600 2075 / 3205 2054 / 2054 Balance -2060 / -2060 -1415 / -2305 -1815 / -1815 Lab / Micro Data Result Diagrams: 10/27/20 06:20 10/27/20 06:20 Labs: Laboratory Results - last 24 hr 10/26/20 10/26/20 10/26/20 13:10 13:40 13:40 WBC RBC Hgb Hct MCV MCH MCHC RDW Std Deviation RDW Coeff of [place] Plt Count MPV Immature Gran % (Auto) Neut % (Auto) Lymph % (Auto) [place] % (Auto) Eos % (Auto) Baso % (Auto) Absolute Neuts (auto) Absolute Lymphs (auto) Nucleated RBC % Sodium Potassium Chloride Carbon Dioxide Anion Gap BUN Creatinine Estim Creat Clear Calc Est GFR (MDRD) Af Amer Est GFR (MDRD) Non-Af BUN/Creatinine Ratio Glucose Calcium Phosphorus Albumin U Random Total Protein 6.6 Ur Random Sodium 113 Urine Creatinine POC Glucose 333 H 10/26/20 10/26/20 10/26/20 13:40 16:40 22:05 WBC RBC Hgb Hct MCV MCH MCHC RDW Std Deviation RDW Coeff of [place] Plt Count MPV Immature Gran % (Auto) Neut % (Auto) Lymph % (Auto) [place] % (Auto) Eos % (Auto) Baso % (Auto) Absolute Neuts (auto) Absolute Lymphs (auto) Nucleated RBC % Sodium Potassium Chloride Carbon Dioxide Anion Gap BUN Creatinine Estim Creat Clear Calc Est GFR (MDRD) Af Amer Est GFR (MDRD) Non-Af BUN/Creatinine Ratio Glucose Calcium Phosphorus Albumin U Random Total Protein Ur Random Sodium Urine Creatinine 14.30 POC Glucose 294 H 339 H 10/27/20 10/27/20 10/27/20 06:20 06:20 06:41 WBC 8.5 RBC 4.16 L Hgb 11.7 L Hct 36.9 L MCV 88.7 MCH 28.1 MCHC 31.7 L RDW Std Deviation 55.1 H RDW Coeff of [place] 16.9 H Plt Count 259 MPV 12.5 H Immature Gran % (Auto) 0.600 Neut % (Auto) 83.8 H Lymph % (Auto) 10.0 L [place] % (Auto) 5.5 Eos % (Auto) 0.0 Baso % (Auto) 0.1 Absolute Neuts (auto) 7.1 Absolute Lymphs (auto) 0.85 Nucleated RBC % 0 Sodium 138 Potassium 4.4 Chloride 98 Carbon Dioxide 35.0 H Anion Gap 5 BUN 75 H Creatinine 2.06 H Estim Creat Clear Calc 20.91 Est GFR (MDRD) Af Amer 30 L Est GFR (MDRD) Non-Af 25 L BUN/Creatinine Ratio 36.4 H Glucose 261 H Calcium 9.1 Phosphorus 4.0 Albumin 3.3 U Random Total Protein Ur Random Sodium Urine Creatinine POC Glucose 225 H Micro: Microbiology 10/25/20 08:35 Sputum, Expectorated/Coughed Gram Stain - Final 10/25/20 08:35 Sputum, Expectorated/Coughed Respiratory Culture - Final 10/24/20 19:15 Mucosa - Nose Respiratory Panel (PCR) - Final Physical Exam Narrative General: Alert and oriented x3. No apparent distress Heart: Normal S1 and S2. There is no rubs, murmur or gallops Lungs: Mild crackles at bases otherwise clear Abdomen: Normal active bowel sound. Abdomen is soft, nontender, no guarding or rebound Extremity: Lower extremities with 2+ edema Assessment & Plan Assessment/Plan (1) KIT (acute kidney injury): PLAN: The patient likely has KIT from cardiorenal syndrome. Since the patient is still volume overloaded, I will continue furosemide. However, I will change furosemide to oral instead of IV. She has lost about 6 kg and fluid so far since admission. We will have to allow serum creatinine to be higher than prior baseline to keep the patient compensated from a heart failure standpoint. I will keep an eye on her renal function while we are diuresing the patient. There is no urgent need for kidney replacement therapy at this point. Current medications are reviewed. They are all appropriately dosed from the renal standpoint. (2) Chronic kidney disease, stage 4 (severe): PLAN: Baseline serum creatinine appears to be around 1.5-1.7 prior to admission. Her true GFR may be lower than what is suggested by prior baseline serum creatinine since she was likely volume overloaded when these lab tests were obtained. See above. UPCR is 461 mg/g. She liekly has underlying diabetic kidney disease. (3) HFrEF (heart failure with reduced ejection fraction): PLAN: Ejection fraction has improved from 25% prior to CABG to 40% on echocardiogram done on 10/24/2020. I agree with treatment with furosemide, but I will change furosemide to oral since she is lost 6 kg so far during this admission. The patient is also on carvedilol. Hold off on using TREVOR inhibitor or ARB for now since the patient has fluctuating renal function. I am okay with adding hydralazine/nitrate if this would help with HFrEF. (4) Essential hypertension: PLAN: BP is reasonably controlled today, and I would monitor this. Continue current medication including carvedilol. I would recommend adding hydralazine/nitrate which could also help with HfrEF. Will defer to primary service and cardiology. (5) Anemia: PLAN: Hemoglobin has been stable at 11.7 g/dL. I suspect some of the anemia could be due to recent hospitalization. However, GFR is low enough that anemia can be due to chronic kidney disease as well. At this point, there is no need for DICK from the nephrology standpoint since hemoglobin is still above 10 g/dL.
[2020-10-27] MEDS: Furosemide 40 MG Tablet PO ×2 (10:10→16:35)
[2020-10-27] MEDS: Acetaminophen 325 MG Tablet 650 MG PO (10:56)
[2020-10-27 11:20] LABS: Bedside Glucose 337 mg/dL (70-110)
--- NOTE | 2020-10-27 11:40 | CASEMGMT ---
Pt actually has [facility], not [place]. Call to [facility] and pt is active with SN, PT/OT. SITA order in and [facility] aware that pt may d/c tomorrow, voice understanding. Tania ZHU CM
--- NOTE | 2020-10-27 11:46 | PCM.PN.HOSP ---
Documented by User: Elvis ANNE 10/27/20 12:00 Subjective Subjective Patient is a 75-year-old female who is comfortably resting in bed, alert and orient x3. Patient reports subjective improvement of her shortness of breath from yesterday. Denies chest pain, palpitations, fever, sputum production, hemoptysis, chills, N/V/D. Objective Data Objective Data Vital Signs: Vital Signs Temp Pulse Resp BP Pulse Ox 98.4 F 58 L 20 H 143/59 H 91 10/27/20 03:30 10/27/20 11:35 10/27/20 10:52 10/27/20 03:30 10/27/20 10:39 Oxygen Flow Rate (L/min) [ 2 AMBULATING with Oxygen #1] Oxygen Flow Rate (L/min) 1 Oxygen Delivery Method Room Air Weight: 200 lb 2.876 oz Body Mass Index (BMI) 35.2 Intake & Output: Intake and Output for Last 24 Hours 10/25/20 10/26/20 10/27/20 23:59 23:59 23:59 Intake Total 540 / 540 660 / 900 600 / 600 Output Total 2600 / 2600 2075 / 3205 2405 / 2405 Balance -2060 / -2060 -1415 / -2305 -1805 / -1805 Lab / Micro Data Result Diagrams: 10/27/20 06:20 10/27/20 06:20 Labs: Laboratory Results - last 24 hr 10/26/20 10/26/20 10/26/20 13:10 13:40 13:40 WBC RBC Hgb Hct MCV MCH MCHC RDW Std Deviation RDW Coeff of [place] Plt Count MPV Immature Gran % (Auto) Neut % (Auto) Lymph % (Auto) [place] % (Auto) Eos % (Auto) Baso % (Auto) Absolute Neuts (auto) Absolute Lymphs (auto) Nucleated RBC % Sodium Potassium Chloride Carbon Dioxide Anion Gap BUN Creatinine Estim Creat Clear Calc Est GFR (MDRD) Af Amer Est GFR (MDRD) Non-Af BUN/Creatinine Ratio Glucose Calcium Phosphorus Albumin U Random Total Protein 6.6 Ur Random Sodium 113 Urine Creatinine POC Glucose 333 H 10/26/20 10/26/20 10/26/20 13:40 16:40 22:05 WBC RBC Hgb Hct MCV MCH MCHC RDW Std Deviation RDW Coeff of [place] Plt Count MPV Immature Gran % (Auto) Neut % (Auto) Lymph % (Auto) [place] % (Auto) Eos % (Auto) Baso % (Auto) Absolute Neuts (auto) Absolute Lymphs (auto) Nucleated RBC % Sodium Potassium Chloride Carbon Dioxide Anion Gap BUN Creatinine Estim Creat Clear Calc Est GFR (MDRD) Af Amer Est GFR (MDRD) Non-Af BUN/Creatinine Ratio Glucose Calcium Phosphorus Albumin U Random Total Protein Ur Random Sodium Urine Creatinine 14.30 POC Glucose 294 H 339 H 10/27/20 10/27/20 10/27/20 06:20 06:20 06:41 WBC 8.5 RBC 4.16 L Hgb 11.7 L Hct 36.9 L MCV 88.7 MCH 28.1 MCHC 31.7 L RDW Std Deviation 55.1 H RDW Coeff of [place] 16.9 H Plt Count 259 MPV 12.5 H Immature Gran % (Auto) 0.600 Neut % (Auto) 83.8 H Lymph % (Auto) 10.0 L [place] % (Auto) 5.5 Eos % (Auto) 0.0 Baso % (Auto) 0.1 Absolute Neuts (auto) 7.1 Absolute Lymphs (auto) 0.85 Nucleated RBC % 0 Sodium 138 Potassium 4.4 Chloride 98 Carbon Dioxide 35.0 H Anion Gap 5 BUN 75 H Creatinine 2.06 H Estim Creat Clear Calc 20.91 Est GFR (MDRD) Af Amer 30 L Est GFR (MDRD) Non-Af 25 L BUN/Creatinine Ratio 36.4 H Glucose 261 H Calcium 9.1 Phosphorus 4.0 Albumin 3.3 U Random Total Protein Ur Random Sodium Urine Creatinine POC Glucose 225 H 10/27/20 10:57 WBC RBC Hgb Hct MCV MCH MCHC RDW Std Deviation RDW Coeff of [place] Plt Count MPV Immature Gran % (Auto) Neut % (Auto) Lymph % (Auto) [place] % (Auto) Eos % (Auto) Baso % (Auto) Absolute Neuts (auto) Absolute Lymphs (auto) Nucleated RBC % Sodium Potassium Chloride Carbon Dioxide Anion Gap BUN Creatinine Estim Creat Clear Calc Est GFR (MDRD) Af Amer Est GFR (MDRD) Non-Af BUN/Creatinine Ratio Glucose Calcium Phosphorus Albumin U Random Total Protein Ur Random Sodium Urine Creatinine POC Glucose 337 H Micro: Microbiology 10/25/20 08:35 Sputum, Expectorated/Coughed Gram Stain - Final 10/25/20 08:35 Sputum, Expectorated/Coughed Respiratory Culture - Final 10/24/20 19:15 Mucosa - Nose Respiratory Panel (PCR) - Final Physical Exam Const alert, oriented x3 and no apparent distress HEENT head/scalp atraumatic, moist oral mucous membranes and oropharynx normal Head and Scalp: normocephalic Eyes EOMs intact bilaterally and conjunctivae normal Neck no lymphadenopathy, supple and no JVD Resp normal respiratory effort, no retractions and no use of accessory muscles Auscultation: diminished lung sounds Cardio regular rate, regular rhythm, no murmurs and no JVD GI normal to inspection, nondistended, normoactive bowel sounds, soft to palpation and non-tender Extremity normal to inspection and full ROM Skin no rashes or lesions noted, no wounds and skin turgor normal Neuro CN's II-XII intact bilaterally Psych affect normal Assessment & Plan Assessment/Plan (1) KIT (acute kidney injury): (2) (HFpEF) heart failure with preserved ejection fraction: QUALIFIERS: Heart failure chronicity: acute Qualified Code(s): I50.31 - Acute diastolic (congestive) heart failure (3) COPD (chronic obstructive pulmonary disease): QUALIFIERS: COPD type: COPD with acute exacerbation Qualified Code(s): J44.1 - Chronic obstructive pulmonary disease with (acute) exacerbation (4) Essential hypertension: (5) Chronic diastolic (congestive) heart failure: PLAN: Day four: See subjective for patient presentation. Discharge planning; patient has home health care through [facility]. Possibly discharged back home tomorrow pending continued improvement in symptoms, improve renal function and coordination w/ Nephrology. 1) Acute respiratory insufficiency secondary to decompensated sysotlic/diastolic CHF Diuresis switch from IV to p.o, per nephrology echocardiogram from 10/17/2020 demonstrates normal LV size, moderate global hypokinesis of the left ventricle and an estimated EF of 40%. Most recent echocardiogram is improved compared to echocardiogram from June of this year. Nephrology consult obtained for diuresis consultation; continue current IV Lasix, obtain urine indices, monitor kidney function. Home medication list includes carvedilol and Lasix. Patient does not qualify for home oxygen. Patient not on ANTONIO/ARB due to chronic kidney dysfunction. Plan; initiate PO lasix twice daily,continue Antonio wraps with bilateral bilateral lower extremity elevation, continue home CHF regimen. 2) KIT secondary to Cardiorenal syndrome Diuresis to p.o. as above. Baseline creatinine between 1.5-1.7, currently at 2.0. Nephrology following. 3) ischemic cardiomyopathy Plan as above. 4) acute on chronic COPD exacerbation Vital signs stable, patient currently satting 94% on 1 L via nasal cannula. Sputum cultures unremarkable. Plan; continue oxygen per protocol, continue DuoNebs, continue albuterol as needed, continue IV methylprednisolone. 5) anxiety and depression Continue clonazepam. 6) DM 2 Hemoglobin A1c 6.6, within goal despite elevated [id number] glucose testing. Plan; continue home insulin regimen, continue ADA diet, continue Accu-Cheks with sliding scale insulin, 7) HTN Continue Coreg and Lasix, hydralazine as needed. 8) hyperlipidemia Continue statin and fenofibrate regimen. 9) history of DVT Continue home Coumadin regimen, INR is therapeutic at 2.8. 10) CKD stage III Stable, creatinine at baseline, continue to monitor BMP, nephrology recommendations as above. 11) history of tobacco use Continue sensation encourage 12) GERD Continue famotidine. DVT prophylaxis -continue home Coumadin Patient seen by Elvis Harry PA-C, under the supervision of Dr. Uriarte. Documented by User: Dr. Dany Uriarte MD 10/27/20 15:31 Subjective Subjective Patient breathing rate is better. Creatinine went up. Lasix dose decreased. Lower extremity edema has improved Objective Data Lab / Micro Data Result Diagrams: 10/27/20 06:20 10/27/20 06:20 Physical Exam Narrative General: Alert, Oriented x3, Cooperative HEENT: Atraumatic, PERRLA, EOMI, Normocephalic Oral: No Gingival or Mucosal Lesions/ Ulcerations Neck: Supple, No JVD, Negative Carotid Bruits Lungs: Air entry diminished in bilateral lung bases. Subtle crepitation in bilateral lung bases. Cardiovascular: Regular rate, Regular Rhythm, Normal S1, Normal S2, No murmurs Abdomen: Bowel Sounds Present, Soft, Non Tender, Non-Distended : No renal angle tenderness. No suprapubic tenderness. Extremities: Mild bilateral leg edema, Capillary Refill Less than 3 Seconds Skin: No rashes, No breakdown Musculoskeletal: No Tenderness to Palpation of Joints or Extremities Neurological: Cranial nerves II-XII grossly intact, Deep Tendon Reflexes 2+/4 and Symmetrical, Neuro grossly intact Psych/Mental Status: Normal Affect, Appropriate. Assessment & Plan Assessment/Plan (1) HFrEF (heart failure with reduced ejection fraction): (2) Atherosclerotic heart disease of [place] coronary artery without angina pectoris: PLAN: This patient was seen in conjunction with DAYANA Ocampo. I have independently interviewed and examined the patient and reviewed pertinent history, examination findings, laboratory and plan of management. I have reviewed the note and agree with the documented findings with the few additional points. In brief, patient is admitted for acute on chronic systolic and diastolic heart failure and COPD exacerbation in PCU. On 1 to 2 L of oxygen. Heart failure core measures including intake and output, fluid restriction less than 1500 mL, daily weight monitoring, kidney and electrolytes monitoring. Initially patient started on Lasix 40 mg twice daily decreased to 40 once daily, Coreg with control of blood pressure. Patient not candidate of ANTONIO/ARB secondary to kidney dysfunction, creatinine clearance 27 mL/min, stage IV CKD. The gasser machine operator was consulted for stage IV CKD. Bicarb 27, K4.0. : Discussed with the gasser machine operator. Lasix decreased to 40 mg oral daily. Patient still has crepitations although her shortness of breath is improving. KIT from cardiorenal syndrome. Patient lost about 6 kg of fluid weight. Hemoglobin is stable. Urine sodium 113, random protein 6.6 and creatinine 14.3. Other comorbidities as mentioned above. Patient previous echo showed EF 25% which improved to 40% on 10/24 echo. Blood pressure is controlled. Hemoglobin 10.7. I have discussed my assessment with DAYANA Ocampo and orders have been reviewed. Charges/Coding Visit Charges Inpatient E&M: 78465 Subs Hosp L2
[2020-10-27 16:46] LABS: Bedside Glucose 346 mg/dL (70-110)
[2020-10-27] MEDS: Atorvastatin Calcium 40 MG Tablet PO (21:42)
[2020-10-27] MEDS: clonazePAM 1 MG Tablet PO (21:52)
[2020-10-27 21:55] LABS: Bedside Glucose 382 mg/dL (70-110)
[2020-10-28] VITALS (16 sets, daily range): BP systolic 137–148; BP diastolic 58–64; PULSE 50–80; RESP 16–21; TEMP 36.6–36.9; O2SAT 86–98
[2020-10-28 06:05] LABS: Absolute Lymphocyte Count 0.88 X10^3/uL (0.83-4.51); Absolute Neutrophil Count 7.2 X10^3/uL (2.0-7.7); Hematocrit 41.4 % (37-47); Hemoglobin 12.7 g/dL (12.0-15.0); Lymphocyte # 0.88 X10^3/ul (0.83-4.51); Lymphocyte % 10.3 % (19-41); Mean Corp Hgb Conc 30.7 g/dL (32-36); Mean Corpuscular Hgb 27.2 pg (27.0-32.0); Mean Corpuscular Volume 88.7 fL (81-99); Mean Platelet Vol. 12.3 fl (6.2-12.0); Monocyte% 5.8 % (0-10); NRBC Flagged by Analyzer 0 % (0-5); Neutrophil # 7.16 X10^3/uL (2.7-7.7); Neutrophil % 83.7 % (47-70); Platelet Count 298 K/mm3 (150-450); RBC Distribution Width CV 16.6 % (11.6-14.6); RBC Distribution Width SD 54.2 fl (35.1-43.9); Red Blood Count 4.67 M/mm3 (4.2-5.4); White Blood Count 8.6 K/mm3 (4.4-11.0)
[2020-10-28] MEDS: Insulin Lispro 100 UNIT/ML INSULN.PEN SC ×4 (06:41→21:45)
[2020-10-28 06:43] LABS: Albumin, Serum 3.4 g/dL (3.2-5.0); BUN 80 mg/dL (7-18); Calcium,Total 9.8 mg/dL (8.5-10.1); Chloride 96 mmol/L (98-107); Creatinine, Serum 2.05 mg/dL (0.55-1.02); EST Glomerular Filtration Rate 25 mL/min (>60); Est Glom Filt Rate - Afr Amer 30 mL/min (>60); Estimated Creatinine Clearance 21.01 ml/min; Glucose 312 mg/dL (74-106); Magnesium 2.5 mg/dL (1.6-2.6); Phosphorus 4.5 mg/dL (2.5-4.9); Potassium 4.5 mmol/L (3.5-5.1); Sodium Level 138 mmol/L (136-145)
[2020-10-28 06:45] LABS: Bedside Glucose 266 mg/dL (70-110)
[2020-10-28] MEDS: Ipratropium/Albuterol Sulfate 3 ML AMPUL.NEB INHALATION ×4 (06:52→18:31)
[2020-10-28] MEDS: Aspirin E.C. 81 MG Tablet PO (08:26)
[2020-10-28] MEDS: Carvedilol 6.25 MG Tablet PO ×2 (08:26→16:23)
[2020-10-28] MEDS: Fenofibrate 145 MG Tablet PO (08:27)
[2020-10-28] MEDS: Famotidine 20 MG Tablet PO (08:27)
[2020-10-28] MEDS: Sertraline 50 MG Tablet PO (08:27)
[2020-10-28] MEDS: Furosemide 40 MG Tablet PO ×2 (08:27→16:24)
[2020-10-28] MEDS: Senna/Docusate Sodium 1 Tablet PO ×2 (08:29→21:41)
[2020-10-28 11:31] LABS: Bedside Glucose 415 mg/dL (70-110)
--- NOTE | 2020-10-28 13:05 | PCM.PN.HOSP ---
Documented by User: Annabelle Marx NP, GENERAL [employer] SUPERVISOR-C 10/28/20 13:20 Subjective Subjective Patient seen and examined. Reports feeling overall fatigued. Reports shortness of breath with minimal movement. Denies shortness of breath at rest. Reports intermittent cough which has been chronic. Denies fever, chills. [facility] however states she would like to return home at discharge. Objective Data Objective Data Vital Signs: Vital Signs Temp Pulse Resp BP Pulse Ox 97.9 F 80 21 H 139/61 H 89 10/28/20 08:30 10/28/20 11:32 10/28/20 11:32 10/28/20 08:30 10/28/20 10:44 Oxygen Flow Rate (L/min) [ 2 AMBULATING with Oxygen #1] Oxygen Flow Rate (L/min) 2 Oxygen Delivery Method Nasal Cannula Weight: 202 lb 13.204 oz Body Mass Index (BMI) 35.2 Intake & Output: Intake and Output for Last 24 Hours 10/26/20 10/27/20 10/28/20 23:59 23:59 23:59 Intake Total 660 / 900 1300 / 1475 550 / 550 Output Total 2075 / 3205 3305 / 3855 1999 / 1999 Balance -1415 / -2305 -2005 / -2380 -1450 / -1450 Lab / Micro Data Result Diagrams: 10/28/20 05:54 10/28/20 05:54 Labs: Laboratory Results - last 24 hr 10/27/20 10/27/20 10/28/20 16:32 21:44 05:54 WBC RBC Hgb Hct MCV MCH MCHC RDW Std Deviation RDW Coeff of [place] Plt Count MPV Immature Gran % (Auto) Neut % (Auto) Lymph % (Auto) [place] % (Auto) Eos % (Auto) Baso % (Auto) Absolute Neuts (auto) Absolute Lymphs (auto) Nucleated RBC % Sodium 138 Potassium 4.5 Chloride 96 L Carbon Dioxide 36.0 H BUN 80 H Creatinine 2.05 H Estim Creat Clear Calc 21.01 Est GFR (MDRD) Af Amer 30 L Est GFR (MDRD) Non-Af 25 L BUN/Creatinine Ratio 39.0 H Glucose 312 H Calcium 9.8 Phosphorus 4.5 Magnesium 2.5 Albumin 3.4 POC Glucose 346 H 382 H 10/28/20 10/28/2021 05:54 06:40 11:22 WBC 8.6 RBC 4.67 Hgb 12.7 Hct 41.4 MCV 88.7 MCH 27.2 MCHC 30.7 L RDW Std Deviation 54.2 H RDW Coeff of [place] 16.6 H Plt Count 298 MPV 12.3 H Immature Gran % (Auto) 0.200 Neut % (Auto) 83.7 H Lymph % (Auto) 10.3 L [place] % (Auto) 5.8 Eos % (Auto) 0.0 Baso % (Auto) 0.0 Absolute Neuts (auto) 7.2 Absolute Lymphs (auto) 0.88 Nucleated RBC % 0 Sodium Potassium Chloride Carbon Dioxide BUN Creatinine Estim Creat Clear Calc Est GFR (MDRD) Af Amer Est GFR (MDRD) Non-Af BUN/Creatinine Ratio Glucose Calcium Phosphorus Magnesium Albumin POC Glucose 266 H 415 H Micro: Microbiology 10/25/20 08:35 Sputum, Expectorated/Coughed Gram Stain - Final 10/25/20 08:35 Sputum, Expectorated/Coughed Respiratory Culture - Final 10/24/20 19:15 Mucosa - Nose Respiratory Panel (PCR) - Final Physical Exam Const alert, oriented x3 and no apparent distress Orientation / Consciousness: awake, oriented to person, oriented to place and oriented to time HEENT normocephalic and moist oral mucous membranes Eyes PERRL, EOMs intact bilaterally and conjunctivae normal Neck no lymphadenopathy Resp clear to auscultation bilaterally Auscultation: diminished lung sounds Cardio regular rate, regular rhythm and no murmurs Peripheral Pulses: pulses 2+ throughout GI normal to inspection, nondistended, normoactive bowel sounds, non-tender and non-distended Extremity normal to inspection General Extremity: edema bilateral lower extremity Details: mild Skin no rashes or lesions noted Lesions: no lesions Rashes: no rashes Trauma: no lacerations or abrasions Neuro CN's II-XII intact bilaterally, no focal motor deficits, no sensory deficits noted and deep tendon reflexes 2+ bilaterally Psych mental status grossly normal and affect normal Assessment & Plan Assessment/Plan (1) KIT (acute kidney injury): (2) HFrEF (heart failure with reduced ejection fraction): (3) COPD (chronic obstructive pulmonary disease): QUALIFIERS: COPD type: COPD with acute exacerbation Qualified Code(s): J44.1 - Chronic obstructive pulmonary disease with (acute) exacerbation PLAN: 1. Acute hypoxic respiratory insufficiency secondary to heart failure with reduced ejection fraction and exacerbation of COPD-continue supplemental oxygen to maintain O2 sat above 90%. Will need home oxygen testing prior to discharge. 2. Acute on chronic heart failure with reduced ejection fraction-echocardiogram 10/24/2020 demonstrated an EF of 40% which is improved from previous study. Transition to Lasix 40 mg twice daily per nephrology recommendations. Will need to follow-up with cardiology at discharge. 3. Chronic COPD with exacerbation-IV Solu-Medrol. Plan for transition to prednisone taper in a.m. Albuterol and DuoNeb aerosols. 4. Acute kidney injury on chronic kidney disease stage IV-KIT likely due to cardiorenal syndrome. Nephrology following. Transitioned to oral Lasix. Hold nephrotoxic regimen. Trend BMP. 5. Type 2 diabetes [id number] with sliding scale insulin. Recent hemoglobin A1c 6.6%. 6. Hypertension-stable, on carvedilol. 7. Hyperlipidemia-on statin, fenofibrate. 8. History of DVT-on Coumadin. 9. Anxiety/depression-on sertraline, Clonazepam. 10. GERD-on famotidine. 11. History of tobacco use-encouraged continued cessation. DVT prophylaxis-Coumadin. This patient was seen by SUSANNAH Saeed under the supervision of Dr. Uriarte. Documented by User: Dr. Dany Uriarte MD 10/28/20 15:21 Subjective Subjective Patient shortness of breath is better but is still on 2 L of oxygen. Pulse ox dropped further 86% ambulating on room air, 92% on 2 L of oxygen ambulating and 99% at rest on room air. Patient concerned of oxygen requirement and felt weak and tired. Creatinine is stable. Does not want to go SNF Objective Data Lab / Micro Data Result Diagrams: 10/28/20 05:54 10/28/20 05:54 Physical Exam Narrative General: Alert, Oriented x3, Cooperative HEENT: Atraumatic, PERRLA, EOMI, Normocephalic Oral: No Gingival or Mucosal Lesions/ Ulcerations Neck: Supple, No JVD, Negative Carotid Bruits Lungs: Air entry diminished in bilateral lung bases. Subtle crepitation in bilateral lung bases. Cardiovascular: Regular rate, Regular Rhythm, Normal S1, Normal S2, No murmurs Abdomen: Bowel Sounds Present, Soft, Non Tender, Non-Distended : No renal angle tenderness. No suprapubic tenderness. Extremities: Mild bilateral leg edema, Capillary Refill Less than 3 Seconds. Knee bony prominences are visible. Skin: No rashes, No breakdown Musculoskeletal: No Tenderness to Palpation of Joints or Extremities Neurological: Cranial nerves II-XII grossly intact, Deep Tendon Reflexes 2+/4 and Symmetrical, Neuro grossly intact Psych/Mental Status: Normal Affect, Appropriate. Assessment & Plan Assessment/Plan (1) (HFpEF) heart failure with preserved ejection fraction: QUALIFIERS: Heart failure chronicity: acute Qualified Code(s): I50.31 - Acute diastolic (congestive) heart failure (2) Atherosclerotic heart disease of [place] coronary artery without angina pectoris: (3) History of non-ST elevation myocardial infarction (NSTEMI): (4) Stage 2 moderate COPD by GOLD classification: PLAN: This patient was seen in conjunction with GENERAL [employer] SUPERVISOR, Annabelle. I have independently interviewed and examined the patient and reviewed pertinent history, examination findings, laboratory and plan of management. I have reviewed the note and agree with the documented findings with the few additional points. In brief, patient is admitted for acute on chronic systolic and diastolic heart failure and COPD exacerbation in PCU. Heart failure core measures including intake and output, fluid restriction less than 1500 mL, daily weight monitoring, kidney and electrolytes monitoring. Patient on Lasix 40 mg IV twice daily initially titrated down to 40 mg p.o. twice daily, Coreg with control of blood pressure. Patient not candidate of TREVOR/ARB secondary to kidney dysfunction, creatinine clearance 27 mL/min, stage IV CKD. Levee Superintendent was for diuresis management with diuretic stage IV CKD. Bicarb 27, K4.0. Discussed with the application analyst. Continue the same dose of Lasix 40 mg twice daily. Patient still has crepitations although her shortness of breath is improving. KIT from cardiorenal syndrome. Other comorbidities as mentioned above. Patient previous echo showed EF 25% which improved to 40% on 10/24 echo. Blood pressure is controlled. Hemoglobin 10.7. Patient will need oxygen at rest and ambulation. Discussed with Dr. Leon. Requested early appointment before December. Change prednisone to 40 mg daily. Follow with produce associate as an outpatient. I have discussed my assessment with Annabelle SCHMITZ and orders have been reviewed. Charges/Coding Visit Charges Inpatient E&M: 74706 Subs Hosp L2
[2020-10-28] MEDS: 0.9% Saline Lock 10 ML Syringe IV ×2 (14:41→20:26)
[2020-10-28 16:36] LABS: Bedside Glucose 312 mg/dL (70-110)
--- NOTE | 2020-10-28 17:40 | PN.RENAL_ITS ---
Subjective Subjective Following for acute kidney injury on chronic kidney disease. The patient denies chest pain. Shortness of breath is overall better. However, she is still desaturating with short distance walk. There is no nausea or vomiting today. Objective Data Objective Data Vital Signs: Vital Signs Temp Pulse Resp BP Pulse Ox 98.1 F 60 18 137/59 H 95 10/28/20 14:45 10/28/20 16:00 10/28/20 14:45 10/28/20 14:45 10/28/20 14:45 Oxygen Flow Rate (L/min) [ 2 AMBULATING with Oxygen #1] Oxygen Flow Rate (L/min) 2 Oxygen Delivery Method Nasal Cannula Weight: 92 kg Body Mass Index (BMI) 35.2 Intake & Output: Intake and Output for Last 24 Hours 10/26/20 10/27/20 10/28/20 23:59 23:59 23:59 Intake Total 660 / 900 1300 / 1475 550 / 550 Output Total 2075 / 3205 3305 / 3855 1999 / 1999 Balance -1415 / -2305 -2004 / -2380 -1450 / -1450 Lab / Micro Data Result Diagrams: 10/28/20 05:54 10/28/20 05:54 Labs: Laboratory Results - last 24 hr 10/27/20 10/28/20 10/28/20 21:44 05:54 05:54 WBC 8.6 RBC 4.67 Hgb 12.7 Hct 41.4 MCV 88.7 MCH 27.2 MCHC 30.7 L RDW Std Deviation 54.2 H RDW Coeff of [place] 16.6 H Plt Count 298 MPV 12.3 H Immature Gran % (Auto) 0.200 Neut % (Auto) 83.7 H Lymph % (Auto) 10.3 L [place] % (Auto) 5.8 Eos % (Auto) 0.0 Baso % (Auto) 0.0 Absolute Neuts (auto) 7.2 Absolute Lymphs (auto) 0.88 Nucleated RBC % 0 Sodium 138 Potassium 4.5 Chloride 96 L Carbon Dioxide 36.0 H BUN 80 H Creatinine 2.05 H Estim Creat Clear Calc 21.01 Est GFR (MDRD) Af Amer 30 L Est GFR (MDRD) Non-Af 25 L BUN/Creatinine Ratio 39.0 H Glucose 312 H Calcium 9.8 Phosphorus 4.5 Magnesium 2.5 Albumin 3.4 POC Glucose 382 H 10/28/20 10/28/20 10/28/20 06:40 11:22 16:21 WBC RBC Hgb Hct MCV MCH MCHC RDW Std Deviation RDW Coeff of [place] Plt Count MPV Immature Gran % (Auto) Neut % (Auto) Lymph % (Auto) [place] % (Auto) Eos % (Auto) Baso % (Auto) Absolute Neuts (auto) Absolute Lymphs (auto) Nucleated RBC % Sodium Potassium Chloride Carbon Dioxide BUN Creatinine Estim Creat Clear Calc Est GFR (MDRD) Af Amer Est GFR (MDRD) Non-Af BUN/Creatinine Ratio Glucose Calcium Phosphorus Magnesium Albumin POC Glucose 266 H 415 H 312 H Micro: Microbiology 10/25/20 08:35 Sputum, Expectorated/Coughed Gram Stain - Final 10/25/20 08:35 Sputum, Expectorated/Coughed Respiratory Culture - Final 10/24/20 19:15 Mucosa - Nose Respiratory Panel (PCR) - Final Physical Exam Narrative General: Alert and oriented x3. No apparent distress Heart: Normal S1 and S2. There is no rubs, murmur or gallops Lungs: Decreased breath sound at bases. Abdomen: Normal active bowel sound. Abdomen is soft, nontender, no guarding or rebound Extremity: Lower extremities with 1+ edema Assessment & Plan Assessment/Plan (1) KIT (acute kidney injury): PLAN: The patient likely has KIT from cardiorenal syndrome. Furosemide was changed to oral from IV yesterday. The patient is still achieving negative fluid balance. However, weight went up. We will have to reweigh her and watch fluid balance closely. I do not think we need to return to IV furosemide at this time. Renal function has stabilized over the last 24 hours. We will need to allow her creatinine to stay around 2.0 to 2.5 mg/dL to keep the patient compensated and not volume overloaded. I will continue to monitor her renal function while we are diuresing the patient. There is no urgent need for kidney replacement therapy at this point. Current medications are reviewed. They are all appropriately dosed from the renal standpoint. (2) Chronic kidney disease, stage 4 (severe): PLAN: Baseline serum creatinine appears to be around 1.5-1.7 prior to admission. Her true GFR may be lower than what is suggested by prior baseline serum creatinine since she was likely volume overloaded when these lab tests were obtained. See above. Again, we likely need to allow creatinine to be around 2.0 2.5 mg/dL to keep her compensated. UPCR is 461 mg/g. She likely has underlying diabetic kidney disease. (3) HFrEF (heart failure with reduced ejection fraction): PLAN: Ejection fraction has improved from 25% prior to CABG to 40% on echocardiogram done on 10/24/2020. I agree with treatment with furosemide, but I have l changed furosemide to oral on 10/27/2020. The patient is also on carvedilol. Hold off on using TREVOR inhibitor or ARB for now since the patient has fluctuating renal function. I am okay with adding hydralazine/nitrate if this would help with HFrEF. (4) Essential hypertension: PLAN: BP is reasonably controlled today, and I will continue to monitor BP. Continue current medication including carvedilol. I would recommend adding hydralazine/nitrate which could also help with HfrEF. Will defer to primary service and cardiology. (5) Anemia: PLAN: Hemoglobin has been stable at 12.7 g/dL. I suspect some of the anemia could be due to recent hospitalization. However, GFR is low enough that anemia can be due to chronic kidney disease as well. At this point, there is no need for DICK from the nephrology standpoint since hemoglobin is still above 10 g/dL.
[2020-10-28] MEDS: Atorvastatin Calcium 40 MG Tablet PO (21:41)
[2020-10-28] MEDS: clonazePAM 1 MG Tablet PO (21:42)
[2020-10-28 21:46] LABS: Bedside Glucose 348 mg/dL (70-110)
[2020-10-29] VITALS (13 sets, daily range): BP systolic 133–143; BP diastolic 49–62; PULSE 50–64; RESP 16–20; TEMP 36.4–36.9; O2SAT 88–97
[2020-10-29] MEDS: Ipratropium/Albuterol Sulfate 3 ML AMPUL.NEB INHALATION ×4 (02:52→14:18)
[2020-10-29 06:18] LABS: Anion Gap 7 (5-15); BUN 92 mg/dL (7-18); Calcium,Total 9.2 mg/dL (8.5-10.1); Chloride 97 mmol/L (98-107); EST Glomerular Filtration Rate 26 mL/min (>60); Est Glom Filt Rate - Afr Amer 31 mL/min (>60); Estimated Creatinine Clearance 21.53 ml/min; Glucose 221 mg/dL (74-106); Potassium 4.6 mmol/L (3.5-5.1); Sodium Level 139 mmol/L (136-145)
[2020-10-29] MEDS: Insulin Lispro 100 UNIT/ML INSULN.PEN SC ×2 (06:34→12:55)
[2020-10-29 06:40] LABS: Bedside Glucose 200 mg/dL (70-110)
[2020-10-29] MEDS: Senna/Docusate Sodium 1 Tablet PO (08:30)
[2020-10-29] MEDS: Fenofibrate 145 MG Tablet PO (08:30)
[2020-10-29] MEDS: Aspirin E.C. 81 MG Tablet PO (08:30)
[2020-10-29] MEDS: Sertraline 50 MG Tablet PO (08:30)
[2020-10-29] MEDS: Furosemide 40 MG Tablet PO (08:30)
[2020-10-29] MEDS: Famotidine 20 MG Tablet PO (08:30)
[2020-10-29] MEDS: predniSONE 20 MG Tablet 40 MG PO (08:34)
--- NOTE | 2020-10-29 09:20 | PN.RENAL_ITS ---
Subjective Subjective Following for KIT on CKD. The patient denies shortness of breath at rest. She has not been out of bed yet, but she is nervous about desaturation with activity which occurred yesterday with PT. The patient does have some lower chest discomfort with deep breathing. Edema has improved. Objective Data Objective Data Vital Signs: Vital Signs Temp Pulse Resp BP Pulse Ox 98.1 F 57 L 16 143/58 H 95 10/29/20 08:25 10/29/20 08:25 10/29/20 08:25 10/29/20 08:25 10/29/20 08:25 Oxygen Flow Rate (L/min) [ 2 AMBULATING with Oxygen #1] Oxygen Flow Rate (L/min) 2 Oxygen Delivery Method Nasal Cannula Weight: 92.1 kg Body Mass Index (BMI) 35.2 Intake & Output: Intake and Output for Last 24 Hours 10/27/20 10/28/20 10/29/20 23:59 23:59 23:59 Intake Total 1300 / 1475 1070 / 1070 140 / 140 Output Total 3305 / 3855 3050 / 3050 200 / 200 Balance -2004 / -2379 -1979 / -1979 - / Lab / Micro Data Result Diagrams: 10/28/20 05:54 10/29/20 05:20 Labs: Laboratory Results - last 24 hr 10/28/20 10/28/20 10/28/20 11:22 16:21 21:43 Sodium Potassium Chloride Carbon Dioxide Anion Gap BUN Creatinine Estim Creat Clear Calc Est GFR (MDRD) Af Amer Est GFR (MDRD) Non-Af BUN/Creatinine Ratio Glucose Calcium POC Glucose 415 H 312 H 348 H 10/29/20 10/29/20 05:20 06:33 Sodium 139 Potassium 4.6 Chloride 97 L Carbon Dioxide 35.0 H Anion Gap 7 BUN 92 H Creatinine 2.00 H Estim Creat Clear Calc 21.53 Est GFR (MDRD) Af Amer 31 L Est GFR (MDRD) Non-Af 26 L BUN/Creatinine Ratio 46.0 H Glucose 221 H Calcium 9.2 POC Glucose 200 H Micro: Microbiology 10/25/20 08:35 Sputum, Expectorated/Coughed Gram Stain - Final 10/25/20 08:35 Sputum, Expectorated/Coughed Respiratory Culture - Final 10/24/20 19:15 Mucosa - Nose Respiratory Panel (PCR) - Final Physical Exam Narrative General: Alert and oriented x3. No apparent distress Heart: Normal S1 and S2. There is no rubs, murmur or gallops Lungs: Decreased breath sound at bases. Upper lung ortiz are more clear Abdomen: Normal active bowel sound. Abdomen is soft, nontender, no guarding or rebound Extremity: Lower extremities with no edema Assessment & Plan Assessment/Plan (1) KIT (acute kidney injury): PLAN: The patient likely has KIT from cardiorenal syndrome. Furosemide was changed to oral from IV on 10/27/20. The patient is still achieving negative fluid balance. Weight has been stable. Continue the current dose of oral furosemide. Renal function has stabilized over the last 48 hours. We will need to allow her creatinine to stay around 2.0 to 2.5 mg/dL to keep the patient compensated and not volume overloaded. I will continue to monitor her renal function while we are diuresing the patient. There is no need for kidney replacement therapy at this point. If the patient is discharged, I will arrange for follow-up in the [place] office in 2 to 3 weeks. I have her phone number, and I will have my office call her to arrange for lab follow-up and appointment. Current medications are reviewed. They are all appropriately dosed from the renal standpoint. (2) Chronic kidney disease, stage 4 (severe): PLAN: Prior baseline serum creatinine was around 1.5-1.7 prior to admission. Her true GFR may be lower than what is suggested by prior baseline serum creatinine since she was likely volume overloaded when these lab tests were obtained. The current serum creatinine is likely her new baseline. See above. Again, we likely need to allow creatinine to be around 2.0 2.5 mg/dL to keep her compensated. UPCR is 461 mg/g. She likely has underlying diabetic kidney disease. (3) HFrEF (heart failure with reduced ejection fraction): PLAN: Ejection fraction has improved from 25% prior to CABG to 40% on echocardiogram done on 10/24/2020. I agree with treatment with furosemide, but I have l changed furosemide to oral on 10/27/2020. The patient is also on carvedilol. Hold off on using TREVOR inhibitor or ARB for now since the patient has fluctuating renal function. I am okay with adding hydralazine/nitrate if this would help with HFrEF (will defer this decision to cardiology). (4) Essential hypertension: PLAN: BP is reasonably controlled today, and I will continue to monitor BP. Continue current medication including carvedilol. I would recommend adding hydralazine/nitrate which could also help with HFrEF. Will defer to primary service and cardiology. (5) Anemia: PLAN: Hemoglobin has been stable at 12.7 g/dL. I suspect some of the anemia could be due to recent hospitalization. However, GFR is low enough that anemia can be due to chronic kidney disease as well. At this point, there is no need for DICK from the nephrology standpoint since hemoglobin is still above 10 g/dL.
--- NOTE | 2020-10-29 11:21 | DCINST_ITS ---
Discharge Instructions Diet Discharge Diet: 8 Cup Fluid Restriction and 2000 mg Sodium Diet Activity Discharge Activity: Return to Normal Activity Dressing / Incision Call your doctor if you observe: Shortness of breath, Dizziness and Chest pain Follow Up Care Test Results: Test results from this visit will be discussed in further detail at your follow-up appointment, if applicable. Discharge Plan Admission Admit Date/Time: 10/24/20 16:49 Primary Reason for Your Visit: Respiratory failure, COPD, heart failure Attending Provider: Moise Krishnamurthy Primary Care Provider: Rufus Blanco Consulting Providers: Basim Jose Discharge Orders/Prescriptions Prescriptions: New prednisone 10 mg tablet See Taper mg PO DAILY Qty: 30 RF: 0 Continued (DME) pen needle, diabetic [BD Ultra-Fine Kay[place] Pen Needle] 32 gauge x 5/32 needle See Rx Instructions .ROUTE .MEDSUPPLY Qty: 100 RF: 5 (DME) FreeStyle [place] 2 [place] Misc See Rx Instructions .ROUTE .MEDSUPPLY Qty: 1 RF: 0 (DME) FreeStyle [place] 2 Sensor Kit See Rx Instructions .ROUTE .MEDSUPPLY Qty: 2 RF: 12 acetaminophen 325 mg tablet 650 mg PO Q4H PRN (Reason: Pain) RF: 0 albuterol sulfate 90 mcg/actuation HFA aerosol inhaler 1 puff INHALATION Q4H PRN (Reason: whweezin) RF: 0 aspirin [Adult Low Dose Aspirin] 81 mg tablet,delayed release (DR/EC) 81 mg PO DAILY RF: 0 atorvastatin 40 mg tablet 40 mg PO QHS RF: 0 insulin lispro 100 unit/mL insulin pen See Rx Instructions SC QAC RF: 0 ipratropium bromide 0.02 % solution 2.5 ml INHALATION TID PRN (Reason: Wheezing) RF: 0 sertraline 50 mg tablet 50 mg PO DAILY RF: 0 warfarin 1 mg tablet 2.5 mg PO QPM RF: 0 fenofibrate 160 mg tablet 160 mg PO DAILY RF: 0 Senna Plus 8.6-50 mg capsule 1 tab-cap PO BID RF: 0 polyethylene glycol 3350 [Miralax] 17 gram/dose powder 17 gm PO DAILY RF: 0 clonazepam 1 MG tablet 1 mg PO TID PRN PRN (Reason: Anxiety) RF: 0 famotidine 20 MG tablet 20 mg PO BID RF: 0 insulin glargine 100 unit/mL (3 mL) insulin pen See Rx Instructions SC BID RF: 0 carvedilol 6.25 mg Tablet 6.25 mg PO BID RF: 0 (DME) FreeStyle Precision [place] Strips Strip See Rx Instructions .ROUTE .MEDSUPPLY Qty: 50 RF: 6 Changed furosemide 40 mg tablet 40 mg PO BID Qty: 60 RF: 0 Referrals / Follow Up: Luther Calderon MD [STAFF PHYSICIAN] - 11/10/20 (As scheduled 11/10/2020) Rey Leon MD [STAFF PHYSICIAN] - 11/16/20 3:30 pm (Appt with DAYANA Lambert) Rufus Blanco DO [Primary Care Provider] - In 1 Week (Please call for a hospital follow up appointment. ) Basim Jose MD [STAFF PHYSICIAN] - See Referral Note (Call for appt) Disposition Disposition (needs filled in before D/C Order can be placed): Home Health Service
--- NOTE | 2020-10-29 11:42 | DS.PCM_ITS ---
Documented by User: Annabelle Marx NP, CABLE OPERATOR-C 10/29/20 13:33 Providers Date of Admission: 10/24/20 Date of Discharge: 10/29/20 Primary Care Physician: Dr. Rufus Blanco, Consultations 10/24/20 18:23 Consult: Onc/Wound/regulator assembler Routine Comment: Reason for Consult:: Left breast wound 10/25/20 14:49 Consult: Nephrology Routine Consulting Provider: Basim Jose Reason for Consult: CKD stage IV, HF, EF 25% EMERGENT Consult: No MD Notified: Yes Date Notified: 10/25/20 Time Notified: 14:49 Method of Notification: Answering Service Reason For Visit: CHF EXACERVBATION, COPD EXACERBATION Diagnosis Discharge Diagnosis (1) KIT (acute kidney injury): Status: Acute Code(s): N17.9 - Acute kidney failure, unspecified (2) Chronic kidney disease, stage 4 (severe): Status: Chronic Code(s): N18.4 - Chronic kidney disease, stage 4 (severe) (3) HFrEF (heart failure with reduced ejection fraction): Status: Acute Code(s): I50.20 - Unspecified systolic (congestive) heart failure (4) Essential hypertension: Status: Chronic Code(s): I10 - Essential (primary) hypertension (5) Anemia: Status: Acute Code(s): D64.9 - Anemia, unspecified Medications at Discharge Home Medications clonazepam 1 mg PO TID PRN PRN 08/14/15 famotidine 20 mg PO BID 08/14/15 flash glucose scanning reader #1 ea 01/29/20 flash glucose sensor #2 ea 01/29/20 pen needle, diabetic 32 gauge x #100 ea 01/29/20 blood sugar diagnostic #50 ea 01/30/20 acetaminophen 325 mg tablet 650 mg PO Q4H PRN tablet 08/17/20 albuterol sulfate 90 mcg/actuation aerosol inhaler 1 puff INHALATION Q4H PRN gm 08/17/20 aspirin 81 mg tablet,delayed release 81 mg PO DAILY 08/17/20 atorvastatin 40 mg tablet 40 mg PO QHS 08/17/20 fenofibrate 160 mg tablet 160 mg PO DAILY 08/17/20 insulin glargine 100 unit/mL (3 mL) subcutaneous pen See Rx Instructions SC BID ml 08/17/20 insulin lispro 100 unit/mL subcutaneous pen See Rx Instructions SC QAC ml 08/17/20 ipratropium bromide 0.02 % solution for inhalation 2.5 ml INHALATION TID PRN ml 08/17/20 polyethylene glycol 3350 17 gram/dose oral powder 17 gm PO DAILY 08/17/20 sennosides 8.6 mg-docusate sodium 50 mg capsule 1 tab-cap PO BID 08/17/20 sertraline 50 mg tablet 50 mg PO DAILY 08/17/20 warfarin 1 mg tablet 2.5 mg PO QPM tablet 08/17/20 carvedilol 6.25 mg PO BID 10/24/20 furosemide 40 mg PO BID #60 tablet 10/29/20 prednisone See Taper PO DAILY #30 tab 10/29/20 Hospital Course Operations None Procedures 2-D Echocardiogram Summary of Care Provided Minutes Spent on Discharge: 35 Hospital Course: Patient is a 75-year-old female admitted 10/24/2020 due to dyspnea, wheezing. 1. Acute hypoxic respiratory insufficiency secondary to heart failure with reduced ejection fraction and exacerbation of COPD-patient will require 2 L nasal cannula with ambulation at discharge. Oxygen stable at rest on room air. She is ambulatory in the home. Continue supplemental oxygen to maintain O2 at above 90%. Follow-up with pulmonary medicine 11/10/2020 as scheduled. 2. Acute on chronic heart failure with reduced ejection fraction-echocardiogram 10/24/2020 demonstrated an EF of 40% which is improved from previous study. Transition to Lasix 40 mg twice daily per nephrology recommendations. Patient has follow-up with cardiology 11/16/2020. 3. Chronic COPD with exacerbation-IV Solu-Medrol during admission. Transition to prednisone taper at discharge. Continue home inhaler regimen. Patient has upcoming follow-up with pulmonary medicine on 11/10/2020. 4. Acute kidney injury on chronic kidney disease stage IV-KIT likely due to cardiorenal syndrome. Nephrology consulted during admission. Transitioned to oral Lasix. Creatinine stable. Follow-up with nephrology in 2 weeks. 5. Type 2 diabetes mellitus-continue home insulin regimen. Recent hemoglobin A1c 6.6%. 6. Hypertension-stable, on carvedilol. 7. Hyperlipidemia-on statin, fenofibrate. 8. History of DVT-on Coumadin. 9. Anxiety/depression-on sertraline, Clonazepam. 10. GERD-on famotidine. 11. History of tobacco use-encouraged continued cessation. Physical Exam Const alert, oriented x3 and no apparent distress Orientation / Consciousness: awake, oriented to person, oriented to place and or iented to time HEENT normocephalic and moist oral mucous membranes Eyes PERRL, EOMs intact bilaterally and conjunctivae normal Neck no lymphadenopathy Resp clear to auscultation bilaterally Auscultation: diminished lung sounds Cardio regular rate, regular rhythm and no murmurs Peripheral Pulses: pulses 2+ throughout GI normal to inspection, nondistended, normoactive bowel sounds, non-tender and no n-distended Extremity normal to inspection General Extremity: edema bilateral lower extremity Details: mild Skin no rashes or lesions noted Lesions: no lesions Rashes: no rashes Trauma: no lacerations or abrasions Neuro CN's II-XII intact bilaterally, no focal motor deficits, no sensory deficits not ed and deep tendon reflexes 2+ bilaterally Psych mental status grossly normal and affect normal Patient seen and examined prior to discharge. Physical assessment as noted above. Patient is stable for discharge with follow up recommendations as noted above. This patient was seen by SUSANNAH Saeed under the supervision of Dr. Krishnamurthy. Weight / BMI Weight Weight: 203 lb 0.732 oz Body Mass Index (BMI) 35.2 ABG / Lab / Microbiology Data Result Diagrams: 10/28/20 05:54 10/29/20 05:20 Laboratory: Laboratory Results - last 24 hr 10/28/20 10/28/20 10/29/20 16:21 21:43 05:20 Sodium 139 Potassium 4.6 Chloride 97 L Carbon Dioxide 35.0 H Anion Gap 7 BUN 92 H Creatinine 2.00 H Estim Creat Clear Calc 21.53 Est GFR (MDRD) Af Amer 31 L Est GFR (MDRD) Non-Af 26 L BUN/Creatinine Ratio 46.0 H Glucose 221 H Calcium 9.2 POC Glucose 312 H 348 H 10/29/20 06:33 Sodium Potassium Chloride Carbon Dioxide Anion Gap BUN Creatinine Estim Creat Clear Calc Est GFR (MDRD) Af Amer Est GFR (MDRD) Non-Af BUN/Creatinine Ratio Glucose Calcium POC Glucose 200 H Microbiology: Microbiology 10/25/20 08:35 Sputum, Expectorated/Coughed Gram Stain - Final 10/25/20 08:35 Sputum, Expectorated/Coughed Respiratory Culture - Final 10/24/20 19:15 Mucosa - Nose Respiratory Panel (PCR) - Final D/C Instructions Discharge Diet: 8 Cup Fluid Restriction and 2000 mg Sodium Diet Call your doctor if you observe: Shortness of breath, Dizziness and Chest pain Meaningful Use Info Meaningful Use Diagnoses (Choose all that apply): CHF CHF TREVOR/ARB ordered at discharge?: No Reason TREOVR/ARB not ordered?: Worsening renal function Documented LVEF (%): 40 Discharge Plan Admission Admit Date/Time: 10/24/20 16:49 Primary Reason for Your Visit: Respiratory failure, COPD, heart failure Attending Provider: Moise Krishnamurthy Primary Care Provider: Rufus Blanco Consulting Providers: Basim Jose Discharge Orders/Prescriptions Prescriptions: New prednisone 10 mg tablet See Taper mg PO DAILY Qty: 30 RF: 0 Continued (DME) pen needle, diabetic [BD Ultra-Fine Kaylyn Pen Needle] 32 gauge x 5/32 needle See Rx Instructions .ROUTE .MEDSUPPLY Qty: 100 RF: 5 (DME) FreeStyle Sharita 2 [place] Misc See Rx Instructions .ROUTE .MEDSUPPLY Qty: 1 RF: 0 (DME) FreeStyle Sharita 2 Sensor Kit See Rx Instructions .ROUTE .MEDSUPPLY Qty: 2 RF: 12 acetaminophen 325 mg tablet 650 mg PO Q4H PRN (Reason: Pain) RF: 0 albuterol sulfate 90 mcg/actuation HFA aerosol inhaler 1 puff INHALATION Q4H PRN (Reason: whweezin) RF: 0 aspirin [Adult Low Dose Aspirin] 81 mg tablet,delayed release (DR/EC) 81 mg PO DAILY RF: 0 atorvastatin 40 mg tablet 40 mg PO QHS RF: 0 insulin lispro 100 unit/mL insulin pen See Rx Instructions SC QAC RF: 0 ipratropium bromide 0.02 % solution 2.5 ml INHALATION TID PRN (Reason: Wheezing) RF: 0 sertraline 50 mg tablet 50 mg PO DAILY RF: 0 warfarin 1 mg tablet 2.5 mg PO QPM RF: 0 fenofibrate 160 mg tablet 160 mg PO DAILY RF: 0 Senna Plus 8.6-50 mg capsule 1 tab-cap PO BID RF: 0 polyethylene glycol 3350 [Miralax] 17 gram/dose powder 17 gm PO DAILY RF: 0 clonazepam 1 MG tablet 1 mg PO TID PRN PRN (Reason: Anxiety) RF: 0 famotidine 20 MG tablet 20 mg PO BID RF: 0 insulin glargine 100 unit/mL (3 mL) insulin pen See Rx Instructions SC BID RF: 0 carvedilol 6.25 mg Tablet 6.25 mg PO BID RF: 0 (DME) FreeStyle Precision Richardson Strips Strip See Rx Instructions .ROUTE .MEDSUPPLY Qty: 50 RF: 6 Changed furosemide 40 mg tablet 40 mg PO BID Qty: 60 RF: 0 Referrals / Follow Up: Luther Calderon MD [STAFF PHYSICIAN] - 11/10/20 (As scheduled 11/10/2020) Rey Leon MD [STAFF PHYSICIAN] - 11/16/20 3:30 pm (Appt with DAYANA Lambert) Rufus Blanco DO [Primary Care Provider] - In 1 Week (Please call for a hospital follow up appointment. ) Basim Jose MD [STAFF PHYSICIAN] - See Referral Note (Call for appt) Disposition Disposition (needs filled in before D/C Order can be placed): Home Health Service Documented by User: Dr. Moise Krishnamurthy DO 10/29/20 14:12 Providers Date of Admission: 10/24/20 Reason For Visit: CHF EXACERVBATION, COPD EXACERBATION Medications at Discharge Home Medications clonazepam 1 mg PO TID PRN PRN 08/14/15 famotidine 20 mg PO BID 08/14/15 flash glucose scanning reader #1 ea 01/29/20 flash glucose sensor #2 ea 01/29/20 pen needle, diabetic 32 gauge x /32 #100 ea 01/29/20 blood sugar diagnostic #50 ea 01/30/20 acetaminophen 325 mg tablet 650 mg PO Q4H PRN tablet 08/17/20 albuterol sulfate 90 mcg/actuation aerosol inhaler 1 puff INHALATION Q4H PRN gm 08/17/20 aspirin 81 mg tablet,delayed release 81 mg PO DAILY 08/17/20 atorvastatin 40 mg tablet 40 mg PO QHS 08/17/20 fenofibrate 160 mg tablet 160 mg PO DAILY 08/17/20 insulin glargine 100 unit/mL (3 mL) subcutaneous pen See Rx Instructions SC BID ml 08/17/20 insulin lispro 100 unit/mL subcutaneous pen See Rx Instructions SC QAC ml 08/17/20 ipratropium bromide 0.02 % solution for inhalation 2.5 ml INHALATION TID PRN ml 08/17/20 polyethylene glycol 3350 17 gram/dose oral powder 17 gm PO DAILY 08/17/20 sennosides 8.6 mg-docusate sodium 50 mg capsule 1 tab-cap PO BID 08/17/20 sertraline 50 mg tablet 50 mg PO DAILY 08/17/20 warfarin 1 mg tablet 2.5 mg PO QPM tablet 08/17/20 carvedilol 6.25 mg PO BID 10/24/20 furosemide 40 mg PO BID #60 tablet 10/29/20 prednisone See Taper PO DAILY #30 tab 10/29/20 Hospital Course Procedures 2-D Echocardiogram Summary of Care Provided Minutes Spent on Discharge: 32 Hospital Course: Patient presents with shortness of breath. Patient was found to have acute heart failure with reduced ejection fraction. Echocardiogram showed an EF of 40%. Patient was diuresed and diuresed total of 7.5 L. Patient will be discharged with furosemide 40 mg twice daily. Patient also may have passed dyspnea due to COPD with exacerbation. Patient will be on prednisone at discharge. Patient had acute kidney injury and nephrology was consulted. [place] to be related with cardiorenal syndrome. Patient creatinine has remained stable. Patient follow-up with nephrology as outpatient. Physical Exam Const alert and oriented x3 HEENT normocephalic Resp normal respiratory effort, no use of accessory muscles and clear to auscultation bilaterally Cardio regular rate, regular rhythm, S1 normal heart sound and S2 normal heart sound GI normal to inspection, nondistended, normoactive bowel sounds, soft to palpation, non-tender and non-distended Extremity normal to inspection ABG / Lab / Microbiology Data Result Diagrams: 10/28/20 05:54 10/29/20 05:20 Discharge Plan Admission Admit Date/Time: 10/24/20 16:49 Primary Reason for Your Visit: Respiratory failure, COPD, heart failure Attending Provider: Moise Krishnamurthy Primary Care Provider: Rufus Blanco Consulting Providers: Basim Jose Discharge Orders/Prescriptions Prescriptions: New prednisone 10 mg tablet See Taper mg PO DAILY Qty: 30 RF: 0 Continued (DME) pen needle, diabetic [BD Ultra-Fine Kaylyn Pen Needle] 32 gauge x 5/32 needle See Rx Instructions .ROUTE .MEDSUPPLY Qty: 100 RF: 5 (DME) FreeStyle Sharita 2 [place] Misc See Rx Instructions .ROUTE .MEDSUPPLY Qty: 1 RF: 0 (DME) FreeStyle Sharita 2 Sensor Kit See Rx Instructions .ROUTE .MEDSUPPLY Qty: 2 RF: 12 acetaminophen 325 mg tablet 650 mg PO Q4H PRN (Reason: Pain) RF: 0 albuterol sulfate 90 mcg/actuation HFA aerosol inhaler 1 puff INHALATION Q4H PRN (Reason: whweezin) RF: 0 aspirin [Adult Low Dose Aspirin] 81 mg tablet,delayed release (DR/EC) 81 mg PO DAILY RF: 0 atorvastatin 40 mg tablet 40 mg PO QHS RF: 0 insulin lispro 100 unit/mL insulin pen See Rx Instructions SC QAC RF: 0 ipratropium bromide 0.02 % solution 2.5 ml INHALATION TID PRN (Reason: Wheezing) RF: 0 sertraline 50 mg tablet 50 mg PO DAILY RF: 0 warfarin 1 mg tablet 2.5 mg PO QPM RF: 0 fenofibrate 160 mg tablet 160 mg PO DAILY RF: 0 Senna Plus 8.6-50 mg capsule 1 tab-cap PO BID RF: 0 polyethylene glycol 3350 [Miralax] 17 gram/dose powder 17 gm PO DAILY RF: 0 clonazepam 1 MG tablet 1 mg PO TID PRN PRN (Reason: Anxiety) RF: 0 famotidine 20 MG tablet 20 mg PO BID RF: 0 insulin glargine 100 unit/mL (3 mL) insulin pen See Rx Instructions SC BID RF: 0 carvedilol 6.25 mg Tablet 6.25 mg PO BID RF: 0 (DME) FreeStyle Precision Richardson Strips Strip See Rx Instructions .ROUTE .MEDSUPPLY Qty: 50 RF: 6 Changed furosemide 40 mg tablet 40 mg PO BID Qty: 60 RF: 0 Referrals / Follow Up: Luther Calderon MD [STAFF PHYSICIAN] - 11/10/20 (As scheduled 11/10/2020) Rey Leon MD [STAFF PHYSICIAN] - 11/16/20 3:30 pm (Appt with DAYANA Lambert) Rufus Blanco DO [Primary Care Provider] - In 1 Week (Please call for a hospital follow up appointment. ) Basim Jose MD [STAFF PHYSICIAN] - See Referral Note (Call for appt) Disposition Disposition (needs filled in before D/C Order can be placed): Home Health Service Charges/Coding Visit Charges Inpatient E&M: 41736 Disch Hosp
--- NOTE | 2020-10-29 11:56 | CASEMGMT ---
LINH called Nori Banegas with [facility] and let her know patient is being discharged home today with resumption of her home health. LINH also faxed d/c instructions to Nori. Xi VÁZQUEZ
[2020-10-29 13:05] LABS: Bedside Glucose 320 mg/dL (70-110)
--- NOTE | 2020-10-29 13:53 | CASEMGMT ---
RN MADHU notified that patient will need home oxygen at discharge. Patient prefers [facility]. Script received, called and faxed referral to [facility] and arranged for deliver of portable tank to patient's room prior to discharge. AUDRA LEUNG faxed and call [facility] to notify of discharge and resumption of HHC.
--- NOTE | 2020-11-02 14:13 | CASEMGMT ---
AUDRA LEUNG Discharge Follow-up Phone Call: HEIDI: Hilad Strata: 3 Call Date: 11/02/20 Discharge Date: 10/29/20 Time of Call: 1410 Duration: 5 min Admitting Diagnosis: CHF and COPD exacerbation AUDRA LEUNG completed follow-up phone call after recent hospitalization. Patient states she is doing better today. Patient states she has been in contact with [facility] regarding oxygen setup. Patient states she was able to fill prescriptions without any issues. Patient is aware of follow-up appts. Patient had no further questions or concerns at this time.
== END 2020-10-29 16:39 | disposition home health service (06) | DRG 291 ==
LOC: ED 16:14 → PCU 16:53
PROVIDERS: Internal Medicine; Internal Medicine Nephrology; Nurse Practitioner Family; Physician Assistant; Admitting Provider Family Medicine; Emergency Provider Emergency Medicine; PCP Family Medicine
DX: I13.0 Hypertensive heart and chronic kidney disease with heart failure and stage 1 through stage 4 chronic kidney disease, or unspecified chronic kidney disease (principal); I50.43 Acute on chronic combined systolic (congestive) and diastolic (congestive) heart failure; J44.1 Chronic obstructive pulmonary disease with (acute) exacerbation; N17.9 Acute kidney failure, unspecified; N18.4 Chronic kidney disease, stage 4 (severe); I25.10 Atherosclerotic heart disease of native coronary artery without angina pectoris; I25.5 Ischemic cardiomyopathy; F32.9 Major depressive disorder, single episode, unspecified; F41.9 Anxiety disorder, unspecified; J30.9 Allergic rhinitis, unspecified; E78.5 Hyperlipidemia, unspecified; E11.22 Type 2 diabetes mellitus with diabetic chronic kidney disease; K21.9 Gastro-esophageal reflux disease without esophagitis; Z79.4 Long term (current) use of insulin; Z79.01 Long term (current) use of anticoagulants; Z87.891 Personal history of nicotine dependence; Z86.718 Personal history of other venous thrombosis and embolism; I25.2 Old myocardial infarction; N28.1 Cyst of kidney, acquired; D63.1 Anemia in chronic kidney disease; E66.9 Obesity, unspecified; I44.7 Left bundle-branch block, unspecified; Z68.36 Body mass index [BMI] 36.0-36.9, adult; Z95.1 Presence of aortocoronary bypass graft; Z90.49 Acquired absence of other specified parts of digestive tract; Z80.0 Family history of malignant neoplasm of digestive organs; Z82.49 Family history of ischemic heart disease and other diseases of the circulatory system; Z83.3 Family history of diabetes mellitus; Z88.0 Allergy status to penicillin; Z79.899 Other long term (current) drug therapy
CPT/HCPCS: 36415; 71045; 80048; 80053; 80061; 80069; 82570; 82962; 83036; 83735; 83880; 84145; 84156; 84300; 84443; 84484; 85025; 85610; 87070; 87205; 87633; 93005; 93306; 94640; 97110; 97162; 97166; 97530; 97535; 97802; 97803; 99251; 99284; Q9957; A4216; C8929; G0463; J1940; J3490

== ENCOUNTER → 2020-11-08 12:23 | Outpatient (CLI) | payer MEDICARE, MEDICAID, SELFPAY ==
[2020-10-24 18:30] VITALS: BMI 35.2
[2020-11-08 14:37] LABS: Albumin, Serum 3.6 g/dL (3.2-5.0); BUN 97 mg/dL (7-18); BUN/Creat Ratio 44.5 RATIO (10-20); Calcium,Total 8.9 mg/dL (8.5-10.1); Chloride 96 mmol/L (98-107); Creatinine, Serum 2.18 mg/dL (0.55-1.02); EST Glomerular Filtration Rate 23 mL/min (>60); Est Glom Filt Rate - Afr Amer 28 mL/min (>60); Glucose 201 mg/dL (74-106); Phosphorus 3.9 mg/dL (2.5-4.9); Potassium 4.3 mmol/L (3.5-5.1); Sodium Level 135 mmol/L (136-145)
== END ==
PROVIDERS: PCP Family Medicine; Referring Provider Internal Medicine Nephrology; Visit Provider Internal Medicine Nephrology
DX: N17.9 Acute kidney failure, unspecified (principal)
CPT/HCPCS: 36415; 80069

== ENCOUNTER → 2020-11-29 09:29 | Outpatient (CLI) | payer MEDICARE, MEDICAID, SELFPAY ==
[2020-11-10 10:43] VITALS: BMI 35.2
[2020-11-16 15:25] VITALS: BMI 32.4
--- NOTE | 2020-11-29 15:56 | PFTCOMP_ITS ---
COMPLETE PULMONARY FUNCTION TEST INTERPRETATION Brief HPI: Patient is a 75 year old female, currently under the care of myself, who presents to [facility] for complete pulmonary function tests secondary to diagnosis of CHF. Respiratory therapist reports good effort and reproducible results. Interpretation: Forced expiration spirometry shows a moderate large airways obstructive ventilatory defect with an FEV1 of 60% predicted. There is a significant bronchodilator response in FEV1 by strict ATS criteria. Spirograms are of good quality and plateau slowly, indicating slowly emptying areas of the lungs. The respiratory flow volume loop shows decreased expiratory flow rates at all lung volumes consistent with airway obstruction. Lung volumes by body plethysmography show a normal total lung capacity at 4.04 L, 85% predicted. FRC and RV are elevated out of proportion. Lung volume measurements are consistent with air-trapping. Diffusion capacity by carbon monoxide is decreased at 58% predicted. The airway resistance is elevated Compared to previous pulmonary function tests from 11/19/2018, there is a significant improvement in DLCO by 16%. Impression: Partially reversible moderate obstructive ventilatory defect with a symmetric reduction in diffusing capacity, but some improvement compared to previous exam.
== END ==
PROVIDERS: PCP Family Medicine; Referring Provider Internal Medicine Critical Care Medicine; Visit Provider Internal Medicine Critical Care Medicine
DX: I50.20 Unspecified systolic (congestive) heart failure (principal); N18.4 Chronic kidney disease, stage 4 (severe); J44.9 Chronic obstructive pulmonary disease, unspecified
CPT/HCPCS: 94060; 94726; 94729

== ENCOUNTER → 2020-12-01 12:33 | Outpatient (CLI) | payer MEDICARE, MEDICAID, SELFPAY ==
[2020-11-10 10:43] VITALS: BMI 35.2
[2020-11-16 15:25] VITALS: BMI 32.4
[2020-12-01 12:30] VITALS: PULSE 71; PULSE 80; PULSE 81; PULSE 84; PULSE 87; PULSE 90; O2SAT 90; O2SAT 92; O2SAT 93; O2SAT 94
--- NOTE | 2020-12-01 14:02 | WT_ITS ---
PSN 6 Minute Walk Test 6 Minute Walk Test 6 Minute Walk Test: 6 Minute Walk Test PSN:6-Minute Walk Test Start: 12/01/20 12:58 Freq: Status: Active Protocol: [id number] Document 12/01/20 12:30 [facility] (Rec: 12/01/20 13:02 [facility] [id number]) 6 Minute Walk Test Date Performed 12/01/20 Time Performed 12:30 Height 5 ft 3 in Weight: 87.543 kg Weight in Pounds 193.[address]: Dr Calderon Assistive device used: Walker Pre-test Oxygen Delivery Method Room Air Pulse Ox (%) 93 Pulse Rate (60-100 beats/min) 71 Dyspnea Chantal Scale (0-10) 0 Exertion Chantal Scale (6-20) 6 1st minute Oxygen Delivery Method Room Air Pulse Ox (%) 94 Pulse Rate (60-100 beats/min) 80 2nd minute Oxygen Delivery Method Room Air Pulse Ox (%) 93 Pulse Rate (60-100 beats/min) 84 3rd minute Oxygen Delivery Method Room Air Pulse Ox (%) 94 Pulse Rate (60-100 beats/min) 87 Dyspnea Chantal Scale (0-10) 3 Reported Symptoms Increased Work of Breathing 4th minute Oxygen Delivery Method Room Air Pulse Ox (%) 92 Pulse Rate (60-100 beats/min) 84 5th minute Oxygen Delivery Method Room Air Pulse Ox (%) 90 Pulse Rate (60-100 beats/min) 81 6th minute Oxygen Delivery Method Room Air Pulse Ox (%) 93 Pulse Rate (60-100 beats/min) 90 Dyspnea Chantal Scale (0-10) 3 Exertion Chantal Scale (6-20) 13 Post-test Oxygen Delivery Method Room Air Pulse Ox (%) 93 Pulse Rate (60-100 beats/min) 84 Full Laps Walked 7 Partial Lap, Number of Tiles Walked 0 Total Distance Walked (ft) 413 Interpretation Interpretation: The patient was noted to have a decreased baseline saturation of 93%. The madelin ent did desaturate as low as 90% with ambulation, but only had a peak heart rate of 87 bpm. In total, the patient traveled 413 feet over the course of 6 minutes on room air with the assistance of a walker and one break. These findings are consistent with a respiratory limitation exercise tolerance. Recommendations Recommendations: No supplemental oxygen is indicated at this time. However, patient will need to be followed closely given level of desaturation.
== END ==
PROVIDERS: PCP Family Medicine; Referring Provider Internal Medicine Critical Care Medicine; Visit Provider Internal Medicine Critical Care Medicine
DX: I50.20 Unspecified systolic (congestive) heart failure (principal); N18.4 Chronic kidney disease, stage 4 (severe); J44.9 Chronic obstructive pulmonary disease, unspecified
CPT/HCPCS: 94618

== ENCOUNTER → 2021-02-28 11:13 | Outpatient (CLI) | payer MEDICARE, MEDICAID, SELFPAY ==
[2021-02-28 11:19] LABS: Mucous, Urine 0 SEEN /hpf (<or=2+); Red Blood Cells-Urine 0 SEEN /hpf (0-5); Squamous Epithelial Cells - UA 0 SEEN /hpf (5-10)
[2021-02-28 11:39] LABS: Color, Urine Yellow (Yellow); Glucose, Dipstick Normal (Normal); Ketone-Dipstick Negative (Negative); Leukocyte Esterase-Dipstick 500 /ul (Negative); Nitrite-Dipstick Negative (Negative); Occult Blood-Urine Negative /ul (Negative); Protein-Dipstick Negative (Negative); Specific Gravity, Urine 1.015 (1.002-1.030); Urine Bilirubin Dipstick Negative (Negative); Urine Clarity Clear (Clear); Urine Urobilinogen Normal (Normal)
[2021-02-28 11:47] LABS: White Blood Cells 10-25 SEEN /hpf (0-5)
[2021-02-28 11:48] LABS: Bacteria 1+ /hpf (None Seen)
[2021-02-28 11:51] LABS: Protein, Urine (Random) 7.5 mg/dL (<11.9); Protein:Creat Ratio 95 mg/g CRE (0-200)
[2021-02-28 12:23] LABS: Albumin, Serum 3.4 g/dL (3.2-5.0); BUN 67 mg/dL (7-18); Calcium,Total 9.1 mg/dL (8.5-10.1); Chloride 104 mmol/L (98-107); Creatinine, Serum 2.58 mg/dL (0.55-1.02); EST Glomerular Filtration Rate 19 mL/min (>60); Est Glom Filt Rate - Afr Amer 23 mL/min (>60); Glucose 147 mg/dL (74-106); Phosphorus 3.9 mg/dL (2.5-4.9); Potassium 4.2 mmol/L (3.5-5.1); Sodium Level 140 mmol/L (136-145)
== END ==
PROVIDERS: PCP Family Medicine; Visit Provider Nurse Practitioner Adult Health
DX: N18.4 Chronic kidney disease, stage 4 (severe) (principal)
CPT/HCPCS: 36415; 80069; 81001; 82570; 84156

== ENCOUNTER 2021-03-02 13:41 | Emergency (ER) | payer MEDICARE, MEDICAID, SELFPAY ==
[2021-03-02 13:43] VITALS: BP 140/48; PULSE 70; RESP 18; TEMP 36.4; O2SAT 97; BMI 33.4
--- NOTE | 2021-03-02 14:21 | EKG12_ITS ---
Test Reason : SOB Blood Pressure : / mmHG Vent. Rate : 065 BPM Atrial Rate : 065 BPM P-R Int : 150 ms QRS Dur : 094 ms QT Int : 450 ms P-R-T Axes : 056 004 071 degrees QTc Int : 468 ms Normal sinus rhythm Normal ECG Confirmed by TIN TORRES, SCOTT ([id number]), editorial assistant MICHAEL BARROSO ([id number]) on 03/07/2021 10:00:47 A M Referred By: GIL Confirmed By:CLIVE CASTLE MD
--- NOTE | 2021-03-02 14:21 | RAD_ITS ---
STUDY: X-RAY CHEST REASON FOR EXAM: Female, 75 years old. Sob TECHNIQUE: Single AP portable view of the chest. COMPARISON: Comparison is made with prior study 10/24/2020. FINDINGS: EKG electrodes are seen. The lungs are clear and expanded. There is no demonstrated pleural abnormality. Sternal cerclage wires and vascular clips are present from a prior sternotomy and coronary artery bypass graft procedure (CABG). Normal mediastinum and hayder. Normal visualized pulmonary arteries. There is atherosclerotic tortuosity of the aortic arch and descending thoracic aorta. There are diffuse degenerative changes of the visualized thoracic spine. Normal visualized ribs, clavicles, and shoulders. There is no demonstrated abnormality of the visualized soft tissue structures of the upper abdomen. RAD/Chest 1 View (Portable) IMPRESSION: No acute abnormality is seen. Electronically Signed: Ketan Price MD at 15:22 EDT , Service support ,
[2021-03-02 14:43] VITALS: O2SAT 99
[2021-03-02 14:45] LABS: Absolute Neutrophil Count 5.2 X10^3/uL (2.0-7.7); Basophil# 0.04 X10^3/uL; Basophil% 0.4 % (0-1); Eosinophil# 0.28 X10^3/uL; Eosinophils% 3.1 % (0-5); Hematocrit 32.6 % (37-47); Hemoglobin 10.3 g/dL (12.0-15.0); Lymphocyte % 24.7 % (19-41); Mean Corp Hgb Conc 31.6 g/dL (32-36); Mean Corpuscular Hgb 30.2 pg (27.0-32.0); Mean Corpuscular Volume 95.6 fL (81-99); Mean Platelet Vol. 12.5 fl (6.2-12.0); Monocyte# 1.13 X10^3/uL; Monocyte% 12.7 % (0-10); NRBC Flagged by Analyzer 0 % (0-5); Neutrophil # 5.23 X10^3/uL (2.7-7.7); Neutrophil % 58.8 % (47-70); Platelet Count 246 K/mm3 (150-450); RBC Distribution Width CV 13.8 % (11.6-14.6); RBC Distribution Width SD 48.8 fl (35.1-43.9); Red Blood Count 3.41 M/mm3 (4.2-5.4); White Blood Count 8.9 K/mm3 (4.4-11.0)
--- NOTE | 2021-03-02 14:49 | EDS_ITS ---
HPI History of Present Illness Chief Complaint: Shortness of Breath Informant: patient Onset/Context/Timing Onset: Days Narrative Narrative: Patient is a 75-year-old female with extensive medical history including triple bypass in June of this year, DVT (on chronic Coumadin therapy) ischemic cardiomyopathy, COPD on 2 L of oxygen at baseline and heart failure with reduced ejection fraction presenting with worsening shortness of breath and leg swelling. Patient states her symptoms are going on for the past 3 to 4 days. She states that when she does her breathing treatments it does loosen up her chest and bring stuff up. She not sure if she is having a COPD exacerbation but notes that she not really wheezing. She maybe has increased her salt intake but she states she is pretty good with her diet. She did have a cataract surgery 1 week ago but has not had any prolonged immobilization and is not on any new medications besides eyedrops. She has swelling up to her thighs and notes it is worse at the end of the day and better when she wakes up in the morning. She denies any exercise intolerance is able to do her daily activities. She denies any fever or chills. No increase in her home O2 requi rements. No other complaints at this time. Coumadin levels been therapeutic the past 2 weeks on her home checks. It was 2.0 last week per the patient. [facility] Medical History Allergic rhinitis Anemia Anxiety disorder Atherosclerotic heart disease of [place] coronary artery without angina pectoris Chronic renal failure, stage 3 (moderate) COPD (chronic obstructive pulmonary disease) COPD exacerbation Debility Depression Diabetes mellitus, type 2 DVT of lower extremity (deep venous thrombosis) (2012) Essential hypertension Gastroesophageal reflux disease with hiatal hernia History of non-ST elevation myocardial infarction (NSTEMI) (07/13/20) Hyperlipidemia Ischemic cardiomyopathy Left bundle branch block Lung nodule Menieres disease Obesity (BMI 30-39.9) Pulmonary edema Stage 2 moderate COPD by GOLD classification Home Medications clonazepam 1 mg PO TID PRN PRN 08/14/15 [History Last Taken 07/12/20 20:00] famotidine 20 mg PO BID 08/14/15 [History Last Taken 07/12/20 07:00] flash glucose scanning reader #1 ea 01/29/20 [Rx Last Taken Unknown] flash glucose sensor #2 ea 01/29/20 [Rx Last Taken Unknown] pen needle, diabetic 32 gauge x 32 #100 ea 01/29/20 [Rx Last Taken Unknown] blood sugar diagnostic #50 ea 01/30/20 [Rx Last Taken Unknown] acetaminophen 325 mg tablet 650 mg PO Q4H PRN tablet 08/17/20 [History Last Taken Unknown] aspirin 81 mg tablet,delayed release 81 mg PO DAILY 08/17/20 [History Last Taken Unknown] atorvastatin 40 mg tablet 40 mg PO QHS 08/17/20 [History Last Taken Unknown] fenofibrate 160 mg tablet 160 mg PO DAILY 08/17/20 [History Last Taken Unknown] insulin glargine 100 unit/mL (3 mL) subcutaneous pen See Rx Instructions SC BID ml 08/17/20 [History Last Taken Unknown] insulin lispro 100 unit/mL subcutaneous pen See Rx Instructions SC QAC ml 08/17/20 [History Last Taken Unknown] ipratropium bromide 0.02 % solution for inhalation 2.5 ml INHALATION TID PRN ml 08/17/20 [History Last Taken Unknown] sennosides 8.6 mg-docusate sodium 50 mg capsule 1 tab-cap PO BID 08/17/20 [History Last Taken Unknown] sertraline 50 mg tablet 50 mg PO DAILY 08/17/20 [History Last Taken Unknown] warfarin 1 mg tablet 2.5 mg PO QPM tablet 08/17/20 [History Last Taken Unknown] carvedilol 6.25 mg PO BID 10/24/20 [History Last Taken Unknown] furosemide 40 mg PO BID #60 tablet 10/29/20 [Rx Last Taken Unknown] fluticasone furoate 200 mcg-vilanterol 25 mcg/dose inhalation powder 1 inh INHALATION QDAY #60 ea 02/07/21 [Rx Last Taken Unknown] gabapentin 100 mg capsule 100 mg PO DAILY 02/07/21 [History Last Taken Unknown] Allergy/AdvReac Type Severity Reaction Status Date / Time Penicillins Allergy Angioedema Verified 03/02/21 13:43 rosiglitazone maleate Allergy hyperglycem Verified 03/02/21 13:43 [From Avandia] ia cephalexin [From Keflex] AdvReac Diarrhea Verified 03/02/21 13:43 doxycycline AdvReac Diarrhea Verified 03/02/21 13:43 prednisone AdvReac hyperglycem Verified 03/02/21 13:43 ia Sulfa (Sulfonamide AdvReac Unknown Verified 03/02/21 13:43 Antibiotics) PAPER TAPE AdvReac Rash Uncoded 03/02/21 13:43 Family History Sister Lupus Arthritis Brother Colon cancer Cancer Prostate Cancer Arthritis Father Diabetes Heart disease Mother Hypertension Surgical History H/O coronary artery bypass surgery (07/27/20) History of History of cholecystectomy History of left heart catheterization (07/19/20) Social History household members: other details: Living with her grandson who works 2nd shift. passed 08/2020. Smoking Status: Former smoker how long ago did patient quit smokin alcohol intake: never substance use type: does not use caffeine: No what type of physical activity do you participate in: none frequency: does not exercise seatbelt use: always ROS ROS ED Constitutional Constitutional ED: Denies chills, fatigue, fever(s) or weakness Eyes Eyes: Denies blurry vision Cardiovascular Cardiovascular: Reports chest pain; Denies palpitations Respiratory/Chest Respiratory/Chest: Reports cough, dyspnea and sputum; Denies dyspnea on exertion Gastrointestinal Gastrointestinal: Denies abdominal pain, melena, nausea or vomiting Genitourinary Genitourinary ED: Denies decreased urination or dysuria Musculoskeletal Musculoskeletal: Denies extremity pain or myalgias Integumentary Denies new lesions or rash Neurologic Neurologic: Denies headache(s), paresthesias or weakness Psychiatric Psychiatric: Denies anxiety or depression Hematologic/Lymphatic Hematologic/Lymphatic: Denies easy bleeding or easy bruising EXAM Physical Exam Const Vital Signs: 03/02/21 13:43 03/02/21 14:43 03/02/21 16:11 Temperature 97.5 F L Temperature Source Temporal Pulse Rate 70 65 Respiratory Rate 18 16 Respiratory Effort Normal Non-Labored Respiratory Depth Normal Respiratory Pattern Normal Blood Pressure 140/48 H 148/43 H Blood Pressure Mean 78 78 Pulse Ox 97 98 Oxygen Delivery Method Nasal Cannula Nasal Cannula Nasal Cannula Oxygen Flow Rate (L/min) 2 2 2 Positive well nourished and well developed General Appearance ED: well developed HEENT Reports moist mucous membranes atraumatic Eyes PERRL and EOMs intact bilaterally Neck supple Neck Narrative: Minimal JVD Resp normal respiratory effort and clear to auscultation bilaterally Resp Narrative: No crackles appreciated Auscultation: Negative for rhonchi or wheezes Cardio regular rate, regular rhythm and no murmurs GI non-tender Palpation: soft Extremity normal to inspection Extremity Narrative: Patient is chronic lower extremity tenderness associate with her neuropathy. Compression stockings are on but no significant peripheral edema. General Extremety ED: Yes tenderness Neuro oriented x3 Sensorium / Orientation: alert Speech: speech normal Motor Exam: Negative for general weakness Psych mental status grossly normal Skin Skin Narrative: Scabbed over healing 2 cm irregular wound on the left breast. Does not appear infected. No underlying fluctuance or firmness appreciated. Lesions: no lesions Rashes: no rashes MDM MDM MDM Narrative Medical decision making narrative: Patient is evaluated for leg swelling and concern for fluid overload. She also has had some central chest discomfort and tightness as well as a cough. Patient is well-appearing in the ER. She does not clinically appear fluid overloaded. She has no wheezing. Breath sounds are clear. She is found to have a chronic KIT with a creatinine of 2.34 but at her baseline. Her hemoglobin is 10.3 which appears to be near her baseline as well. High since he troponin is normal. No obvious signs of infection. Her BNP is elevated but much lower than her baseline. Patient does not have a subtherapeutic INR at 1.6. Patient notes that she has been eating salads multi ple times a day and I suspect this is why her INR is elevated. She is instructed to double her Coumadin dose tonight. She will follow-up with her PCP for this. Patient is counseled that at this time there is not appear to be an obvious cause of her symptoms I do think she stable for outpatient follow-up. At this time I do not think she is having clear COPD exacerbation I do not think steroids indicated. I do not think this is cardiac in nature at this time. She will watch her salt and fluid intake. She has a follow-up appointment with her statistical methods teacher tomorrow. I did obtain a venous duplex given her subtherapeutic INR. This was negative. Patient counseled on return precautions and potential for progression of symptoms. She return the emergency room with any worsening symptoms. Case is discussed with her PCP who will contact her tomorrow for close outpatient follow-up. Lab Data Attestation: I reviewed the patient's lab results. Labs: Laboratory Results - last 24 hr 03/02/21 03/02/21 03/02/21 14:30 14:30 14:30 WBC 8.9 RBC 3.41 L Hgb 10.3 L Hct 32.6 L MCV 95.6 MCH 30.2 MCHC 31.6 L RDW Std Deviation 48.8 H RDW Coeff of [place] 13.8 Plt Count 246 MPV 12.5 H Immature Gran % (Auto) 0.300 Neut % (Auto) 58.8 Lymph % (Auto) 24.7 Ogle % (Auto) 12.7 H Eos % (Auto) 3.1 Baso % (Auto) 0.4 Absolute Neuts (auto) 5.2 Absolute Lymphs (auto) 2.20 Nucleated RBC % 0 PT 18.7 H INR 1.6 Sodium 139 Potassium 4.0 Chloride 101 Carbon Dioxide 32.0 Anion Gap 6 BUN 70 H Creatinine 2.34 H Estim Creat Clear Calc 17.66 Est GFR (MDRD) Af Amer 26 L Est GFR (MDRD) Non-Af 21 L BUN/Creatinine Ratio 29.9 H Glucose 162 H Calcium 9.2 Troponin I High Sens 16 B-Natriuretic Peptide 03/02/21 14:30 WBC RBC Hgb Hct MCV MCH MCHC RDW Std Deviation RDW Coeff of [place] Plt Count MPV Immature Gran % (Auto) Neut % (Auto) Lymph % (Auto) Ogle % (Auto) Eos % (Auto) Baso % (Auto) Absolute Neuts (auto) Absolute Lymphs (auto) Nucleated RBC % PT INR Sodium Potassium Chloride Carbon Dioxide Anion Gap BUN Creatinine Estim Creat Clear Calc Est GFR (MDRD) Af Amer Est GFR (MDRD) Non-Af BUN/Creatinine Ratio Glucose Calcium Troponin I High Sens B-Natriuretic Peptide 222.4 H Radiography Chest X-Ray - ED: 1 View, Read by ED Physician, Read by Radiologist and No Acute Disease Diagnostic Testing: Clinical Impression(s) from Imaging Studies Chest X-Ray 03/02/21 14:21 IMPRESSION: No acute abnormality is seen. Electronically Signed: Ketan Price MD at 15:22 EDT , Service support , Venous Doppler Study 03/02/21 15:01 Interpretation Summary No evidence for acute deep venous thrombosis bilaterally The right great saphenous vein has bright internal echoes consistent chronic superficial thrombophlebitis. Right great saphenous vein is harvested distal to the junction. Technically limited examination as both right and left femoral veins mid to distally could only be visualized with color flow due to patient's inability to tolerate compression Left great saphenous vein is patent and compressible Ordering Physician: Nancy Yin Referring Physician: Rufus Blanco Performed By: Ese Osorio Curtis Rhythm Strip Rhythm Strip: Sinus Rhythm Rate: 65 Ectopy: None EKG Initial EKG: Attestation: I personally reviewed and interpreted this EKG as follows: Interpretation: Sinus Rhythm Comments: Normal sinus rhythm at a rate of 65 Normal axis Normal intervals Normal ST segments Discharge Plan Triage Chief Complaint: Shortness of Breath ED Provider: Nancy Yin Dx/Rx/DC Orders Clinical Impression: Dependent edema, Atypical chest pain, Subtherapeutic anticoagulation Instructions: ED Chest Pain, Uncertain Cause, ED Lymphedema Prescriptions: No Action (DME) pen needle, diabetic [BD Ultra-Fine Kaylyn Pen Needle] 32 gauge x 5/32 needle See Rx Instructions .ROUTE .MEDSUPPLY Qty: 100 RF: 5 (DME) FreeStyle Sharita 2 [place] Misc See Rx Instructions .ROUTE .MEDSUPPLY Qty: 1 RF: 0 (DME) FreeStyle Sharita 2 Sensor Kit See Rx Instructions .ROUTE .MEDSUPPLY Qty: 2 RF: 12 acetaminophen 325 mg tablet 650 mg PO Q4H PRN (Reason: Pain) RF: 0 aspirin [Adult Low Dose Aspirin] 81 mg tablet,delayed release (DR/EC) 81 mg PO DAILY RF: 0 atorvastatin 40 mg tablet 40 mg PO QHS RF: 0 insulin lispro 100 unit/mL insulin pen See Rx Instructions SC QAC RF: 0 ipratropium bromide 0.02 % solution 2.5 ml INHALATION TID PRN (Reason: Wheezing) RF: 0 sertraline 50 mg tablet 50 mg PO DAILY RF: 0 warfarin 1 mg tablet 2.5 mg PO QPM RF: 0 fenofibrate 160 mg tablet 160 mg PO DAILY RF: 0 Senna Plus 8.6-50 mg capsule 1 tab-cap PO BID RF: 0 gabapentin 100 mg capsule 100 mg PO DAILY RF: 0 Breo Ellipta 200-25 mcg/dose blister with device 1 inh inhalation QDAY Qty: 60 RF: 6 clonazepam 1 MG tablet 1 mg PO TID PRN PRN (Reason: Anxiety) RF: 0 famotidine 20 MG tablet 20 mg PO BID RF: 0 insulin glargine 100 unit/mL (3 mL) insulin pen See Rx Instructions SC BID RF: 0 carvedilol 6.25 mg Tablet 6.25 mg PO BID RF: 0 furosemide 40 mg tablet 40 mg PO BID Qty: 60 RF: 0 (DME) FreeStyle Precision Richardson Strips Strip See Rx Instructions .ROUTE .MEDSUPPLY Qty: 50 RF: 6 Primary Care Provider: Rufus Blanco Referrals: Rufus Blanco DO [Primary Care Provider] - Activity Restrictions/Additional Instructions: Take a double dose of your Coumadin tonight. Please follow-up closely with Dr. Blanco for further management of your INR. Follow-up with your statistical methods teacher tomorrow. Disposition Disposition: Home, Self Care Discharge Date/Time: 03/02/21 16:39
[2021-03-02 14:57] LABS: International Normalized Ratio 1.6; Prothrombin Time (Protime)PT. 18.7 SECONDS (11.7-14.9)
--- NOTE | 2021-03-02 15:01 | VDLE_ITS ---
Reason For Study: Swelling RIGHT LEFT CFV is compressible, spontaneous, phasic, GSV is normal. competent and demonstrates normal CFV is compressible, spontaneous, phasic, augmentation. competent, and demonstrates normal FV is compressible, spontaneous, phasic, augmentation. competent and demonstrates normal FV is compressible, spontaneous, phasic, augmentation. competent and demonstrates normal POP V is compressible, spontaneous, phasic, augmentation. competent and demonstrates normal POP V is compressible, spontaneous, phasic, augmentation. competent and demonstrates normal T/P Trunk is compressible. augmentation. PTV is compressible. T/P Trunk is compressible. RT PerV is compressible. PTV is compressible. GSV at junction is partially compressible LT PerV is compressible. with bright intraluminal echoes consistent with Chronic SVT. GSV previously harvested below junction. Procedure This is a venous duplex using B-mode, color flow and spectral Doppler. Exam performed portable in ED. Rt FV distal and Lt FV mid-distal visualized with color only and appear patent. Patient unable to tolerate compression. A preliminary report was called and/or faxed to [facility]. VL/Venous Duplex US - Chirag Extrem Interpretation Summary No evidence for acute deep venous thrombosis bilaterally The right great saphenous vein has bright internal echoes consistent chronic qiu perficial thrombophlebitis. Right great saphenous vein is harvested distal to the junction. Technically limited examination as both right and left femoral veins mid to dis tally could only be visualized with color flow due to patient's inability to tolerate compression Left great saphenous vein is patent and compressible Ordering Physician: Nancy Yin Referring Physician: Rufus Blanco Performed By: Ese Osorio RVT
[2021-03-02 15:02] LABS: Anion Gap 6 (5-15); BNP,B-Type NATRIURETIC PEPTIDE 222.4 pg/mL (0-100); BUN 70 mg/dL (7-18); BUN/Creat Ratio 29.9 RATIO (10-20); Calcium,Total 9.2 mg/dL (8.5-10.1); Chloride 101 mmol/L (98-107); Creatinine, Serum 2.34 mg/dL (0.55-1.02); EST Glomerular Filtration Rate 21 mL/min (>60); Est Glom Filt Rate - Afr Amer 26 mL/min (>60); Estimated Creatinine Clearance 17.66 ml/min; Glucose 162 mg/dL (74-106); Sodium Level 139 mmol/L (136-145); Troponin-I HS 16 pg/mL (3.0-54.0)
[2021-03-02 16:11] VITALS: BP 148/43; PULSE 65; RESP 16; O2SAT 98
== END 2021-03-02 16:39 | disposition home or self-care (01) ==
PROVIDERS: Emergency Provider Emergency Medicine; PCP Family Medicine
DX: R60.9 Edema, unspecified (principal); R07.89 Other chest pain; D64.9 Anemia, unspecified; E11.22 Type 2 diabetes mellitus with diabetic chronic kidney disease; E78.5 Hyperlipidemia, unspecified; F32.9 Major depressive disorder, single episode, unspecified; F41.9 Anxiety disorder, unspecified; I25.10 Atherosclerotic heart disease of native coronary artery without angina pectoris; I25.2 Old myocardial infarction; I25.5 Ischemic cardiomyopathy; I13.0 Hypertensive heart and chronic kidney disease with heart failure and stage 1 through stage 4 chronic kidney disease, or unspecified chronic kidney disease; I50.22 Chronic systolic (congestive) heart failure; K21.9 Gastro-esophageal reflux disease without esophagitis; N18.30 Chronic kidney disease, stage 3 unspecified; H81.09 Meniere's disease, unspecified ear; Z79.01 Long term (current) use of anticoagulants; Z79.4 Long term (current) use of insulin; Z79.82 Long term (current) use of aspirin; Z79.52 Long term (current) use of systemic steroids; Z86.718 Personal history of other venous thrombosis and embolism; Z87.891 Personal history of nicotine dependence
CPT/HCPCS: 71045; 80048; 83880; 84484; 85025; 85610; 87426; 93005; 93970; 99284; A4216

== ENCOUNTER 2021-05-02 17:53 | Outpatient (CLI) | payer MEDICARE, MEDICAID, SELFPAY | END 2021-05-02 23:59 | disposition home or self-care (01) | PROVIDERS: PCP Family Medicine; Referring Provider Family Medicine; Visit Provider Family Medicine | DX: S21.002A Unspecified open wound of left breast, initial encounter (principal) | CPT/HCPCS: 87070; 87077; 87186; 87205 ==

== ENCOUNTER 2021-07-23 23:05 | Emergency (ER) | payer MEDICARE, MEDICAID, SELFPAY ==
[2021-07-23 23:05] VITALS: BP 144/109; PULSE 75; RESP 15; TEMP 36.3; O2SAT 95; BMI 32.8
[2021-07-23 23:26] LABS: Bedside Glucose 165 mg/dL (74-106)
[2021-07-24 00:05] LABS: Bedside Glucose 181 mg/dL (74-106)
[2021-07-24 00:36] LABS: Bedside Glucose 177 mg/dL (74-106)
--- NOTE | 2021-07-24 00:49 | EX.ED.DYSGE1 ---
HPI History of Present Illness Chief Complaint: Overdose Informant: patient Onset/Context/Timing Onset: Today Narrative Narrative: Patient presents after giving herself too much insulin. Around 9 PM patient states that she was supposed to give herself 6 units of regular insulin and 14 units of long-acting. She did give herself 14 units of long-acting, but then began giving herself 14 units of the regular insulin. She states she pulled the needle out with approximately 4 units left so she believes she had 10 units. She did call her doctor who told her to check her blood sugars frequently and drink juice. She states she did notice her blood sugars dropping at home and was concerned so she came in. She states the lowest blood sugar she saw at home was 150. [facility] Medical History Allergic rhinitis Anemia Anxiety disorder Atherosclerotic heart disease of [place] coronary artery without angina pectoris Chronic renal failure, stage 3 (moderate) COPD (chronic obstructive pulmonary disease) COPD exacerbation Debility Depression Diabetes mellitus, type 2 DVT of lower extremity (deep venous thrombosis) (2012) Essential hypertension Gastroesophageal reflux disease with hiatal hernia History of non-ST elevation myocardial infarction (NSTEMI) (07/13/20) Hyperlipidemia Ischemic cardiomyopathy Left bundle branch block Lung nodule Menieres disease Obesity (BMI 30-39.9) Pulmonary edema Stage 2 moderate COPD by GOLD classification Home Medications clonazepam 1 mg PO TID PRN PRN 08/14/15 [History Last Taken 07/12/20 20:00] famotidine 20 mg PO BID 08/14/15 [History Last Taken 07/12/20 07:00] flash glucose scanning reader #1 ea 01/29/20 [Rx Last Taken Unknown] flash glucose sensor #2 ea 01/29/20 [Rx Last Taken Unknown] pen needle, diabetic 32 gauge x 32 #100 ea 01/29/20 [Rx Last Taken Unknown] blood sugar diagnostic #50 ea 01/30/20 [Rx Last Taken Unknown] acetaminophen 325 mg tablet 650 mg PO Q4H PRN tablet 08/17/20 [History Last Taken Unknown] aspirin 81 mg tablet,delayed release 81 mg PO DAILY 08/17/20 [History Last Taken Unknown] atorvastatin 40 mg tablet 40 mg PO QHS 08/17/20 [History Last Taken Unknown] fenofibrate 160 mg tablet 160 mg PO DAILY 08/17/20 [History Last Taken Unknown] insulin glargine 100 unit/mL (3 mL) subcutaneous pen See Rx Instructions SC BID ml 08/17/20 [History Last Taken Unknown] insulin lispro 100 unit/mL subcutaneous pen See Rx Instructions SC QAC ml 08/17/20 [History Last Taken Unknown] ipratropium bromide 0.02 % solution for inhalation 2.5 ml INHALATION TID PRN ml 08/17/20 [History Last Taken Unknown] sennosides 8.6 mg-docusate sodium 50 mg capsule 1 tab-cap PO BID 08/17/20 [History Last Taken Unknown] sertraline 50 mg tablet 50 mg PO DAILY 08/17/20 [History Last Taken Unknown] warfarin 1 mg tablet 2.5 mg PO QPM tablet 08/17/20 [History Last Taken Unknown] carvedilol 6.25 mg PO BID 10/24/20 [History Last Taken Unknown] furosemide 40 mg PO BID #60 tablet 10/29/20 [Rx Last Taken Unknown] gabapentin 100 mg capsule 100 mg PO DAILY 02/07/21 [History Last Taken Unknown] fluticasone furoate 200 mcg-vilanterol 25 mcg/dose inhalation powder 1 inh INHALATION QDAY #60 ea 06/09/21 [Rx Last Taken Unknown] clindamycin HCl 300 mg TID 07/23/21 [History Last Taken Unknown] Allergy/AdvReac Type Severity Reaction Status Date / Time Penicillins Allergy Angioedema Verified 07/23/21 23:10 rosiglitazone maleate Allergy hyperglycem Verified 07/23/21 23:10 [From Avandia] ia cephalexin [From Keflex] AdvReac Diarrhea Verified 07/23/21 23:10 doxycycline AdvReac Diarrhea Verified 07/23/21 23:10 prednisone AdvReac hyperglycem Verified 07/23/21 23:10 ia Sulfa (Sulfonamide AdvReac Unknown Verified 07/23/21 23:10 Antibiotics) PAPER TAPE AdvReac Rash Uncoded 06/09/21 10:43 Family History Sister Lupus Arthritis Brother Colon cancer Cancer Prostate Cancer Arthritis Father Diabetes Heart disease Mother Hypertension Surgical History H/O coronary artery bypass surgery (07/27/20) History of History of cholecystectomy History of left heart catheterization (07/19/20) Social History household members: other details: Living with her grandson who works 2nd shift. passed 08/2020. Smoking Status: Former smoker how long ago did patient quit smokin alcohol intake: never substance use type: does not use caffeine: No what type of physical activity do you participate in: none frequency: does not exercise seatbelt use: always ROS ROS ED Constitutional Constitutional ED: Denies chills or fever(s) Eyes Eyes: Denies change in vision ENT ENT ED: Denies sore throat Cardiovascular Cardiovascular: Denies chest pain Respiratory/Chest Respiratory/Chest: Denies cough or dyspnea Gastrointestinal Gastrointestinal: Denies abdominal pain, nausea or vomiting Musculoskeletal Musculoskeletal: Denies back pain or neck pain Integumentary Denies rash Neurologic Neurologic: Denies headache(s) Psychiatric Psychiatric: Reports anxiety Allergic/Immunologic Allergic/Immunologic ED: Denies urticaria EXAM Physical Exam Const Vital Signs: 07/23/21 23:05 07/23/21 23:39 Temperature 97.4 F L Temperature Source Temporal Pulse Rate 75 Respiratory Rate 15 Respiratory Effort Normal Respiratory Pattern Normal Blood Pressure 144/109 H Blood Pressure Mean 120 Pulse Ox 95 Oxygen Delivery Method Room Air Positive well nourished and well developed General Appearance ED: well developed HEENT Reports moist mucous membranes Eyes PERRL and EOMs intact bilaterally Neck supple Chest Wall inspection of chest normal and palpation of chest normal Resp normal respiratory effort and clear to auscultation bilaterally Cardio regular rate and regular rhythm GI normal to inspection, nondistended, normoactive bowel sounds and non-tender Palpation: soft Neuro oriented x3 Sensorium / Orientation: alert Psych mental status grossly normal MDM MDM MDM Narrative Medical decision making narrative: Patient was already 2 hours post injection when she arrived to the emergency room. Blood sugar on arrival was 165. Blood sugar was checked every 30 minutes for the next hour and a half. Repeat blood sugars were 181, 177, 225. At this time I advised the patient that we are 4 hours after injection time and the peak time of action for regular insulin is between 2 and 4 hours. I do feel she is safe for discharge to home. She will call her grandson. Lab Data Labs: Laboratory Results - last 24 hr 07/23/21 07/23/21 07/24/21 23:22 23:58 00:32 POC Glucose 165 H 181 H 177 H Discharge Plan Triage Chief Complaint: Overdose ED Provider: Elba Shook Dx/Rx/DC Orders Clinical Impression: Accidental overdose of insulin, Diabetes Instructions: ED Diabetic Insulin Reaction Prescriptions: No Action (DME) pen needle, diabetic [BD Ultra-Fine Kaylyn Pen Needle] 32 gauge x 5/32 needle See Rx Instructions .ROUTE .MEDSUPPLY Qty: 100 RF: 5 (DME) FreeStyle Sharita 2 [place] Misc See Rx Instructions .ROUTE .MEDSUPPLY Qty: 1 RF: 0 (DME) FreeStyle Sharita 2 Sensor Kit See Rx Instructions .ROUTE .MEDSUPPLY Qty: 2 RF: 12 acetaminophen 325 mg tablet 650 mg PO Q4H PRN (Reason: Pain) RF: 0 aspirin [Adult Low Dose Aspirin] 81 mg tablet,delayed release (DR/EC) 81 mg PO DAILY RF: 0 atorvastatin 40 mg tablet 40 mg PO QHS RF: 0 insulin lispro 100 unit/mL insulin pen See Rx Instructions SC QAC RF: 0 ipratropium bromide 0.02 % solution 2.5 ml INHALATION TID PRN (Reason: Wheezing) RF: 0 sertraline [Zoloft] 50 mg tablet 50 mg PO DAILY RF: 0 warfarin 1 mg tablet 2.5 mg PO QPM RF: 0 fenofibrate 160 mg tablet 160 mg PO DAILY RF: 0 Senna Plus 8.6-50 mg capsule 1 tab-cap PO BID RF: 0 gabapentin 100 mg capsule 100 mg PO DAILY RF: 0 Breo Ellipta 200-25 mcg/dose blister with device 1 inh inhalation QDAY Qty: 60 RF: 6 clonazepam 1 MG tablet 1 mg PO TID PRN PRN (Reason: Anxiety) RF: 0 famotidine 20 MG tablet 20 mg PO BID RF: 0 Lantus Solostar U-100 Insulin 100 unit/mL (3 mL) insulin pen See Rx Instructions SC BID RF: 0 carvedilol 6.25 mg Tablet 6.25 mg PO BID RF: 0 furosemide 40 mg tablet 40 mg PO BID Qty: 60 RF: 0 clindamycin HCl 300 mg capsule 300 mg TID RF: 0 (DME) FreeStyle Precision Richardson Strips Strip See Rx Instructions .ROUTE .MEDSUPPLY Qty: 50 RF: 6 Primary Care Provider: Rufus Blanco Referrals: Rufus Blanco DO [Primary Care Provider] - As Needed Disposition Disposition: Home, Self Care
[2021-07-24 01:08] VITALS: BP 136/48; PULSE 71; RESP 15; O2SAT 96
[2021-07-24 01:11] LABS: Bedside Glucose 225 mg/dL (74-106)
== END 2021-07-24 01:16 | disposition home or self-care (01) ==
PROVIDERS: Emergency Provider Emergency Medicine; PCP Family Medicine; Visit Provider Emergency Medicine
DX: T38.3X1A Poisoning by insulin and oral hypoglycemic [antidiabetic] drugs, accidental (unintentional), initial encounter (principal); J44.9 Chronic obstructive pulmonary disease, unspecified; E11.22 Type 2 diabetes mellitus with diabetic chronic kidney disease; N18.30 Chronic kidney disease, stage 3 unspecified; I12.9 Hypertensive chronic kidney disease with stage 1 through stage 4 chronic kidney disease, or unspecified chronic kidney disease; E78.5 Hyperlipidemia, unspecified; Z87.891 Personal history of nicotine dependence; I25.5 Ischemic cardiomyopathy; I25.10 Atherosclerotic heart disease of native coronary artery without angina pectoris; Z95.1 Presence of aortocoronary bypass graft; I25.2 Old myocardial infarction
CPT/HCPCS: 82962; 99282

== ENCOUNTER 2021-08-02 11:33 | Outpatient (CLI) | payer MEDICARE, MEDICAID, SELFPAY ==
[2021-08-02 12:35] LABS: BNP,B-Type NATRIURETIC PEPTIDE 221.9 pg/mL (0-100)
== END 2021-08-02 23:59 | disposition home or self-care (01) ==
LOC: LAB 11:35
PROVIDERS: PCP Family Medicine; Referring Provider Physician Assistant Medical; Visit Provider Physician Assistant Medical
DX: I50.20 Unspecified systolic (congestive) heart failure (principal)
CPT/HCPCS: 36415; 83880

== ENCOUNTER 2021-12-13 02:26 | Emergency (ER) | payer MEDICARE, MEDICAID, SELFPAY ==
[2021-12-13 02:27] VITALS: BP 152/71; PULSE 79; RESP 18; TEMP 36.9; O2SAT 93; BMI 34.3
--- NOTE | 2021-12-13 02:34 | RAD_ITS ---
EXAM: XR LEFT ANKLE COMPLETE, 3 OR MORE VIEWS CLINICAL INDICATION: pain, trauma TECHNIQUE: Frontal, lateral and oblique views of the left ankle. This report was created using [employer] report generation technology. COMPARISON: None. FINDINGS: BONES/JOINTS: No acute or healing fracture or malalignment. No suspicious lytic or sclerotic lesions of bone. Ankle mortise is intact. Prominent plantar and posterior calcaneal enthesophytes. No significant tibiotalar joint effusion. SOFT TISSUES: Unremarkable. No soft tissue swelling or gas. No radiopaque foreign body. VASCULATURE: Peripheral vascular disease. RAD/Ankle min 3 Views IMPRESSION: Diffuse osteopenia without acute or healing fracture or malalignment. Ancillary findings as above. Electronically Signed: Ronnie Topete MD at 3:26 EDT ,
--- NOTE | 2021-12-13 02:34 | RAD_ITS ---
EXAM: XR LEFT FOOT COMPLETE, 3 OR MORE VIEWS CLINICAL INDICATION: pain, trauma TECHNIQUE: Frontal, lateral and oblique views of the left foot. This report was created using [employer] report generation technology. COMPARISON: None. FINDINGS: BONES/JOINTS: Calcaneal enthesopathy. No significant tibiotalar joint effusion. No acute or healing fracture or malalignment. Joint spaces are maintained. No sclerotic or destructive changes observed. SOFT TISSUES: No other soft tissue abnormalities. No soft tissue swelling or gas. No radiopaque foreign body. VASCULATURE: Peripheral vascular calcifications. RAD/Foot min 3 Views IMPRESSION: No acute or healing fracture or malalignment. Electronically Signed: Ronnie Topete MD at 3:28 EDT ,
--- NOTE | 2021-12-13 02:34 | RAD_ITS ---
EXAM: XR LEFT TIBIA AND FIBULA, 2 VIEWS CLINICAL INDICATION: pain, trauma TECHNIQUE: Frontal and lateral views of the left tibia and fibula. This report was created using [employer] report generation technology. COMPARISON: None. FINDINGS: BONES/JOINTS: Moderate medial joint compartment narrowing. Mildly mottled bone density. No evidence of joint effusion. No acute fracture. No subluxation. Normal alignment. SOFT TISSUES: Small soft tissue defect at the medial calf proximally, with shallow ulceration in appearance of roughly 2.8 cm craniocaudal by about 1 cm deep, this appears to be dorsally located on the lateral view. No soft tissue swelling or gas. No radiopaque foreign body. VASCULATURE: Heavily calcified popliteal artery posterior to the knee. RAD/Tibia & Fibula 2 Views IMPRESSION: Shallow soft tissue ulceration of the posterior-medial proximal calf. No underlying fracture or joint effusion. Degenerative changes at the knee. Electronically Signed: Allison Tse MD at 3:21 EDT ,
--- NOTE | 2021-12-13 02:34 | EKG12_ITS ---
Test Reason : DYSRHYTHMIA Blood Pressure : / mmHG Vent. Rate : 077 BPM Atrial Rate : 077 BPM P-R Int : 144 ms QRS Dur : 150 ms QT Int : 438 ms P-R-T Axes : 070 -17 092 degrees QTc Int : 495 ms Normal sinus rhythm Left bundle branch block Abnormal ECG Confirmed by LEE TORRES, LIZETTE ([id number]), web content editor MICHAEL BARROSO ([id number]) on 12/15/2021 10:00:08 AM Referred By: PL Confirmed By:LIZETTE HOWARD MD
--- NOTE | 2021-12-13 02:34 | RAD_ITS ---
EXAM: XR RIGHT TIBIA AND FIBULA, 2 VIEWS CLINICAL INDICATION: PAIN/INJURY TECHNIQUE: Frontal and lateral views of the right tibia and fibula. This report was created using [employer] report generation technology. COMPARISON: None. FINDINGS: BONES/JOINTS: No acute or healing fracture or malalignment. No unusual lytic or sclerotic lesions of bone. Surgical clips along the medial aspect of the right proximal tibia. Calcaneal enthesopathy posteriorly. Preservation of the joint space. SOFT TISSUES: Unremarkable. No soft tissue swelling or gas. No radiopaque foreign body. VASCULATURE: Peripheral vascular calcifications. RAD/Tibia & Fibula 2 Views IMPRESSION: No acute or healing fracture or malalignment. Electronically Signed: Ronnie Topete MD at 3:29 EDT ,
--- NOTE | 2021-12-13 02:36 | EX.ED.DYSGE1 ---
HPI History of Present Illness Chief Complaint: Lower Extremity Injury Informant: patient Narrative Narrative: HasPatient fell out of bed at home. She tried to get up and fell again. She has contusion on her right gutierrez which is new. She has exacerbation of pain in his left lower extremity in the gutierrez ankle and foot area. 2 nonhealing ulcers that have been in the left calf for quite some time. She states they are not infected and she is not on antibiotics and they are not draining. She is set to have surgery on these it sounds like . She was taken off her Coumadin 2 days ago because of this. She does not think she hit her head has no headache or neck pain. She had no palpitations or chest pain. This sounds like a mechanical fall and not syncope. Her only real complaint is worsening the left lower extremity pain. She is already having trouble getting around and now she cannot put any weight on it at all. She denies any hip pain. [facility] Medical History Allergic rhinitis Anemia Anxiety disorder Atherosclerotic heart disease of [place] coronary artery without angina pectoris Chronic renal failure, stage 3 (moderate) COPD (chronic obstructive pulmonary disease) COPD exacerbation Debility Depression Diabetes mellitus, type 2 DVT of lower extremity (deep venous thrombosis) (2012) Essential hypertension Gastroesophageal reflux disease with hiatal hernia History of non-ST elevation myocardial infarction (NSTEMI) (07/13/20) Hyperlipidemia Ischemic cardiomyopathy Left bundle branch block Lung nodule Menieres disease Obesity (BMI 30-39.9) Pulmonary edema Stage 2 moderate COPD by GOLD classification Home Medications clonazepam 1 mg tablet 1 mg PO TID PRN PRN Anxiety 08/14/15 [History Last Taken 07/12/20 20:00] famotidine 20 mg tablet 20 mg PO BID stomach 08/14/15 [History Last Taken 07/12/20 07:00] flash glucose scanning reader (FreeStyle Sharita 2 [place]) #1 ea 01/29/20 [Rx Last Taken Unknown] flash glucose sensor (FreeStyle Sharita 2 Sensor kit) #2 ea 01/29/20 [Rx Last Taken Unknown] pen needle, diabetic 32 gauge x 5/32 (BD Ultra-Fine Kaylyn Pen Needle) #100 ea 01/29/20 [Rx Last Taken Unknown] blood sugar diagnostic (FreeStyle Precision Richardson Strips) #50 ea 01/30/20 [Rx Last Taken Unknown] acetaminophen 325 mg tablet 650 mg PO Q4H PRN Pain 08/17/20 [History Last Taken Unknown] aspirin 81 mg tablet,delayed release (Adult Low Dose Aspirin) 81 mg PO DAILY 08/17/20 [History Last Taken Unknown] atorvastatin 40 mg tablet 40 mg PO QHS 08/17/20 [History Last Taken Unknown] fenofibrate 160 mg tablet 160 mg PO DAILY 08/17/20 [History Last Taken Unknown] insulin glargine 100 unit/mL (3 mL) subcutaneous pen (Lantus Solostar U-100 Insulin) See Rx Instructions subcut BID diabetes 08/17/20 [History Last Taken Unknown] insulin lispro 100 unit/mL subcutaneous pen See Rx Instructions subcut QAC 08/17/20 [History Last Taken Unknown] ipratropium bromide 0.02 % solution for inhalation 2.5 ml inhalation TID PRN Wheezing 08/17/20 [History Last Taken Unknown] sennosides 8.6 mg-docusate sodium 50 mg capsule (Senna Plus) 1 tab-cap PO BID 08/17/20 [History Last Taken Unknown] sertraline 50 mg tablet (Zoloft) 50 mg PO DAILY 08/17/20 [History Last Taken Unknown] warfarin 1 mg tablet 2.5 mg PO QPM 08/17/20 [History Last Taken Unknown] carvedilol 6.25 mg tablet 6.25 mg PO BID 10/24/20 [History Last Taken Unknown] furosemide 40 mg tablet 40 mg PO BID #60 tabs 10/29/20 [Rx Last Taken Unknown] fluticasone furoate 200 mcg-vilanterol 25 mcg/dose inhalation powder (Breo Ellipta) 1 inh inhalation QDAY #60 ea 06/09/21 [Rx Last Taken Unknown] clindamycin HCl 300 mg capsule 300 mg PO TID 08/02/21 [History Last Taken Unknown] Allergy/AdvReac Type Severity Reaction Status Date / Time Penicillins Allergy Angioedema Verified 08/02/21 10:32 rosiglitazone maleate Allergy hyperglycem Verified 08/02/21 10:32 [From Avandia] ia adhesive tape AdvReac Rash Verified 11/22/21 15:20 cephalexin [From Keflex] AdvReac Diarrhea Verified 08/02/21 10:32 doxycycline AdvReac Diarrhea Verified 08/02/21 10:32 prednisone AdvReac hyperglycem Verified 08/02/21 10:32 ia Sulfa (Sulfonamide AdvReac Unknown Verified 08/02/21 10:32 Antibiotics) Family History Sister Lupus Arthritis Brother Colon cancer Cancer Prostate Cancer Arthritis Father Diabetes Heart disease Mother Hypertension Surgical History H/O coronary artery bypass surgery (07/27/20) History of History of cholecystectomy History of left heart catheterization (07/19/20) Social History household members: other details: Living with her grandson who works 2nd shift. passed 08/2020. Smoking Status: Former smoker how long ago did patient quit smokin alcohol intake: never substance use type: does not use caffeine: No what type of physical activity do you participate in: none frequency: does not exercise seatbelt use: always ROS ROS ED Constitutional Constitutional ED: Denies chills or fever(s) Eyes Eyes: Denies change in vision ENT ENT ED: Denies sore throat Cardiovascular Cardiovascular: Denies chest pain, palpitations or racing heartbeat Respiratory/Chest Respiratory/Chest: Denies cough or dyspnea Gastrointestinal Gastrointestinal: Denies abdominal pain, nausea or vomiting Genitourinary Genitourinary ED: Reports other; Denies dysuria Musculoskeletal Musculoskeletal: Reports arthralgias; Denies back pain or neck pain Integumentary Reports other Details: Chronic ulcers left leg Neurologic Neurologic: Denies headache(s), paresthesias or weakness Hematologic/Lymphatic Hematologic/Lymphatic: Reports easy bleeding and easy bruising Allergic/Immunologic Allergic/Immunologic ED: Denies urticaria EXAM Physical Exam Const Vital Signs: 12/13/21 02:27 12/13/21 04:34 Temperature 98.5 F Temperature Source Temporal Pulse Rate 79 72 Respiratory Rate 18 Blood Pressure 152/71 H 153/72 H Blood Pressure Mean 98 Pulse Ox 93 100 Oxygen Delivery Method Nasal Cannula Oxygen Flow Rate (L/min) 2 Positive well nourished and well developed Constitutional Narrative: Patient does look a little uncomfortable. Some of this is due to pain but she also needs to urinate. General Appearance ED: well developed HEENT Reports moist mucous membranes HEENT Narrative: Look at and felt around her head scalp and moved her hair aside. I see no abrasions contusions or sign of any head injury. Eyes EOMs intact bilaterally Neck no lymphadenopathy Chest Wall inspection of chest normal and palpation of chest normal Resp normal respiratory effort and clear to auscultation bilaterally Resp Narrative: Well-healed median sternotomy scar Cardio regular rate and regular rhythm GI normal to inspection, nondistended, normoactive bowel sounds and non-tender Back/Spine no CVA tenderness Extremity Extremity Narrative: Patient does have a contusion/abrasion to the right anterior gutierrez. There is some local tenderness. No deformity. There are 2 ulcerated areas with a dark eschar in the middle on the left posterior medial calf. There is some surrounding erythema and some odor associated with this. But I see no drainage. She has diffuse tenderness around her gutierrez ankle and foot. But there is no deformity. Her left great and second toe are a little bit more red than the others but she states this is chronic and due to her neuropathy. Neuro oriented x3 Psych mental status grossly normal Skin Skin Narrative: See above MDM MDM MDM Narrative Medical decision making narrative: SoundsPatient's blood work shows mild anemia. Her INR is actually therapeutic now. She took her last Coumadin just about 30 hours ago. Mild elevation in the creatinine. Glucose is up a little bit. X-rays of her bilateral tib-fib left ankle left foot and pelvis do not show any acute fracture. Patient has a femoropopliteal bypass scheduled for Sunday at [facility]. She is supposed to be admitted on for preoperative management. She wants to go home. She does not want to be admitted now. She is very limited in her mobility. She has essentially been staying in bed at home pending surgery. She does live with what sounds like a grandson but he works part of the day. She is actually going to go home and stay with her daughter. Her daughter is a nurse and is here with her now. Evidently somebody is at the house all the time. They have no steps to going up to the front door. They have a rogerio potty that they can put with the patient. They have a first-floor bedroom. They feel they can manage. We offered an ambulance to help get her home at this time. They are going to see if they can just drive her home and get assistance at each end. I do not think this patient is too ambulatory. She evidently has not been putting weight on the left leg for some time and now it is a little bit more sore. But she has been rotating on her right leg using a walker from bed to [facility]. Lab Data Attestation: I reviewed the patient's lab results. Labs: Laboratory Results - last 24 hr 12/13/21 12/13/21 12/13/21 02:55 02:55 02:55 WBC 10.2 RBC 3.74 L Hgb 10.9 L Hct 35.5 L MCV 94.9 MCH 29.1 MCHC 30.7 L RDW Std Deviation 49.6 H RDW Coeff of [place] 14.2 Plt Count 325 MPV 11.8 Immature Gran % (Auto) 0.300 Neut % (Auto) 62.7 Lymph % (Auto) 21.4 Mckean % (Auto) 12.5 H Eos % (Auto) 2.7 Baso % (Auto) 0.4 Absolute Neuts (auto) 6.4 Absolute Lymphs (auto) 2.18 Nucleated RBC % 0 PT 24.2 H INR 2.2 Sodium 140 Potassium 4.2 Chloride 102 Carbon Dioxide 32.0 Anion Gap 6 BUN 59 H Creatinine 1.87 H Estim Creat Clear Calc 21.76 Est GFR (MDRD) Af Amer 34 L Est GFR (MDRD) Non-Af 28 L BUN/Creatinine Ratio 31.6 H Glucose 194 H Calcium 9.4 Radiography Diagnostic Testing: Clinical Impression(s) from Imaging Studies Ankle X-Ray 12/13/21 02:34 IMPRESSION: Diffuse osteopenia without acute or healing fracture or malalignment. Ancillary findings as above. Electronically Signed: Ronnie Topete MD at 3:26 EDT , Foot X-Ray 12/13/21 02:34 IMPRESSION: No acute or healing fracture or malalignment. Electronically Signed: Ronnie Topete MD at 3:28 EDT , Tibia/Fibula X-Ray 12/13/21 02:34 IMPRESSION: Shallow soft tissue ulceration of the posterior-medial proximal calf. No underlying fracture or joint effusion. Degenerative changes at the knee. Electronically Signed: Allison Tse MD at 3:21 EDT , Tibia/Fibula X-Ray 12/13/21 02:34 IMPRESSION: No acute or healing fracture or malalignment. Electronically Signed: Ronnie Topete MD at 3:29 EDT , Pelvis X-Ray 12/13/21 02:37 IMPRESSION: No acute or healing fracture or malalignment. Electronically Signed: Ronnie Topete MD at 3:33 EDT , EKG Initial EKG: Comments: EKG done for patient with fall. EKG read by me shows sinus rhythm with left bundle branch block. Some diffuse nonspecific changes likely likely related to the bundle branch block. CT interval is normal. QRS and QTc are a bit long. This is similar to 24 October 2020 Discharge Plan Triage Chief Complaint: Lower Extremity Injury ED Provider: Ciro Rae Dx/Rx/DC Orders Clinical Impression: Fall at home, Contusion of lower leg, right, Leg pain, left Instructions: ED Foot Contusion, ED Ankle Sprain (Adult) Prescriptions: No Action (DME) pen needle, diabetic [BD Ultra-Fine Kaylyn Pen Needle] 32 gauge x 5/32 needle See Rx Instructions .ROUTE .MEDSUPPLY Qty: 100 5RF Rx Instructions: 4 times daily (DME) [employer] Sharita 2 [place] Misc See Rx Instructions .ROUTE .MEDSUPPLY Qty: 1 0RF Rx Instructions: As directed (DME) FreeStyle Sharita 2 Sensor Kit See Rx Instructions .ROUTE .MEDSUPPLY Qty: 2 12RF Rx Instructions: As directed acetaminophen 325 mg tablet 650 mg PO Q4H PRN (Reason: Pain) aspirin [Adult Low Dose Aspirin] 81 mg tablet,delayed release (DR/EC) 81 mg PO DAILY atorvastatin 40 mg tablet 40 mg PO QHS insulin lispro 100 unit/mL insulin pen See Rx Instructions SC QAC Rx Instructions: sliding scale subcut before meals; ipratropium bromide 0.02 % solution 2.5 ml INHALATION TID PRN (Reason: Wheezing) sertraline [Zoloft] 50 mg tablet 50 mg PO DAILY warfarin 1 mg tablet 2.5 mg PO QPM fenofibrate 160 mg tablet 160 mg PO DAILY Senna Plus 8.6-50 mg capsule 1 tab-cap PO BID clindamycin HCl 300 mg capsule 300 mg PO TID Breo Ellipta 200-25 mcg/dose blister with device 1 inh inhalation QDAY Qty: 60 6RF Rx Instructions: after inhalation, rinse mouth with water and spit out; do not swallow clonazepam 1 MG tablet 1 mg PO TID PRN PRN (Reason: Anxiety) famotidine 20 MG tablet 20 mg PO BID Lantus Solostar U-100 Insulin 100 unit/mL (3 mL) insulin pen See Rx Instructions SC BID Rx Instructions: 20 units QAM, 15 units QPM subcut twice a day; carvedilol 6.25 mg Tablet 6.25 mg PO BID furosemide 40 mg tablet 40 mg PO BID Qty: 60 0RF (DME) FreeStyle Precision Richardson Strips Strip See Rx Instructions .ROUTE .MEDSUPPLY Qty: 50 6RF Rx Instructions: As directed Primary Care Provider: Rufus Blanco Referrals: Rufus Blanco DO [Primary Care Provider] - As Needed Activity Restrictions/Additional Instructions: Follow-up with admission is planned on . Disposition Disposition: Home, Self Care Discharge Date/Time: 12/13/21 04:55
--- NOTE | 2021-12-13 02:37 | RAD_ITS ---
EXAM: XR PELVIS, 1 OR 2 VIEWS CLINICAL INDICATION: pain, trauma TECHNIQUE: Frontal view of the pelvis. This report was created using [employer] report generation technology. COMPARISON: None. FINDINGS: No acute or healing fracture or malalignment. Focal calcifications project over the buttock regions. Peripheral vascular calcifications are noted involving the coins and proximal thighs. Degenerative changes of the hip joints and spine. No unusual lytic or sclerotic lesions of bone. RAD/Pelvis 1 or 2 Views IMPRESSION: No acute or healing fracture or malalignment. Electronically Signed: Ronnie Topete MD at 3:33 EDT ,
[2021-12-13] MEDS: oxyCODONE 5 MG Tablet PO (02:59)
[2021-12-13 03:03] LABS: Absolute Lymphocyte Count 2.18 X10^3/uL (0.83-4.51); Absolute Neutrophil Count 6.4 X10^3/uL (2.0-7.7); Basophil# 0.04 X10^3/uL; Basophil% 0.4 % (0-1); Eosinophil# 0.28 X10^3/uL; Eosinophils% 2.7 % (0-5); Hematocrit 35.5 % (37-47); Hemoglobin 10.9 g/dL (12.0-15.0); Lymphocyte # 2.18 X10^3/ul (0.83-4.51); Lymphocyte % 21.4 % (19-41); Mean Corp Hgb Conc 30.7 g/dL (32-36); Mean Corpuscular Hgb 29.1 pg (27.0-32.0); Mean Corpuscular Volume 94.9 fL (81-99); Mean Platelet Vol. 11.8 fl (6.2-12.0); Monocyte# 1.27 X10^3/uL; Monocyte% 12.5 % (0-10); NRBC Flagged by Analyzer 0 % (0-5); Neutrophil # 6.39 X10^3/uL (2.7-7.7); Neutrophil % 62.7 % (47-70); Platelet Count 325 K/mm3 (150-450); RBC Distribution Width CV 14.2 % (11.6-14.6); RBC Distribution Width SD 49.6 fl (35.1-43.9); Red Blood Count 3.74 M/mm3 (4.2-5.4); White Blood Count 10.2 K/mm3 (4.4-11.0)
[2021-12-13 03:11] LABS: International Normalized Ratio 2.2; Prothrombin Time (Protime)PT. 24.2 SECONDS (11.7-14.9)
[2021-12-13 03:15] LABS: BUN 59 mg/dL (7-18); Creatinine, Serum 1.87 mg/dL (0.55-1.02); Estimated Creatinine Clearance 21.76 ml/min; Glucose 194 mg/dL (74-106)
[2021-12-13 03:16] LABS: Anion Gap 6 (5-15); BUN/Creat Ratio 31.6 RATIO (10-20); Calcium,Total 9.4 mg/dL (8.5-10.1); Chloride 102 mmol/L (98-107); EST Glomerular Filtration Rate 28 mL/min (>60); Est Glom Filt Rate - Afr Amer 34 mL/min (>60); Potassium 4.2 mmol/L (3.5-5.1); Sodium Level 140 mmol/L (136-145)
[2021-12-13 04:34] VITALS: BP 153/72; PULSE 72; O2SAT 100
--- NOTE | 2021-12-13 04:55 | ED.RN ---
rnx2 assisted pt into private vehicle. per dtr, her spouse will be at the residence to assist her in getting into the house.
== END 2021-12-13 04:55 | disposition home or self-care (01) ==
PROVIDERS: Emergency Provider Emergency Medicine; PCP Family Medicine; Visit Provider Emergency Medicine
DX: S80.11XA Contusion of right lower leg, initial encounter (principal); E11.622 Type 2 diabetes mellitus with other skin ulcer; J44.9 Chronic obstructive pulmonary disease, unspecified; E11.22 Type 2 diabetes mellitus with diabetic chronic kidney disease; N18.30 Chronic kidney disease, stage 3 unspecified; E78.5 Hyperlipidemia, unspecified; I25.10 Atherosclerotic heart disease of native coronary artery without angina pectoris; I12.9 Hypertensive chronic kidney disease with stage 1 through stage 4 chronic kidney disease, or unspecified chronic kidney disease; Z87.891 Personal history of nicotine dependence; I25.5 Ischemic cardiomyopathy; D64.9 Anemia, unspecified; W06.XXXA Fall from bed, initial encounter; Y92.003 Bedroom of unspecified non-institutional (private) residence as the place of occurrence of the external cause
CPT/HCPCS: 72170; 73590; 73610; 73630; 80048; 85025; 85610; 93005; 99285; A4216

== ENCOUNTER → 2022-01-20 | Outpatient (REF) | payer MEDICARE, MEDICAID, SELFPAY ==
[2022-01-20 07:05] LABS: INR Fingerstick 1.5; Prothrombin Time Fingerstick 18.6 SEC (11.7-14.9)
== END ==
LOC: OLS.WHLTCC 04:00
PROVIDERS: PCP Family Medicine; Visit Provider Family Medicine
DX: I73.9 Peripheral vascular disease, unspecified (principal); J44.1 Chronic obstructive pulmonary disease with (acute) exacerbation; R48.8 Other symbolic dysfunctions; M62.81 Muscle weakness (generalized); Z98.62 Peripheral vascular angioplasty status; Z79.01 Long term (current) use of anticoagulants
CPT/HCPCS: 36416; 85610

== ENCOUNTER → 2022-02-08 | Outpatient (CLI) | payer MEDICARE, MEDICAID, SELFPAY ==
[2022-02-08 12:09] LABS: Absolute Lymphocyte Count 1.95 X10^3/uL (0.83-4.51); Absolute Neutrophil Count 4.2 X10^3/uL (2.0-7.7); Basophil# 0.05 X10^3/uL; Basophil% 0.7 % (0-1); Eosinophil# 0.31 X10^3/uL; Eosinophils% 4.3 % (0-5); Lymphocyte # 1.95 X10^3/ul (0.83-4.51); Lymphocyte % 26.9 % (19-41); Mean Corp Hgb Conc 30.3 g/dL (32-36); Mean Corpuscular Hgb 29.2 pg (27.0-32.0); Mean Corpuscular Volume 96.2 fL (81-99); Mean Platelet Vol. 12.4 fl (6.2-12.0); Monocyte# 0.75 X10^3/uL; Monocyte% 10.3 % (0-10); NRBC Flagged by Analyzer 0 % (0-5); Neutrophil # 4.16 X10^3/uL (2.7-7.7); Neutrophil % 57.2 % (47-70); Platelet Count 322 K/mm3 (150-450); RBC Distribution Width CV 15.2 % (11.6-14.6); RBC Distribution Width SD 54.3 fl (35.1-43.9); Red Blood Count 3.43 M/mm3 (4.2-5.4); White Blood Count 7.3 K/mm3 (4.4-11.0)
[2022-02-08 12:29] LABS: ALB/GLOB Ratio 0.8 RATIO (0.9-2.4); AST(SGOT) 19 U/L (15-37); Alanine Aminotransfer ALT/SGPT 25 U/L (13-56); Albumin, Serum 3.3 g/dL (3.2-5.0); Alkaline Phosphatase 63 U/L (45-117); Anion Gap 4 (5-15); BUN 53 mg/dL (7-18); BUN/Creat Ratio 25.6 RATIO (10-20); Calcium,Total 9.2 mg/dL (8.5-10.1); Chloride 103 mmol/L (98-107); Creatinine, Serum 2.07 mg/dL (0.55-1.02); EST Glomerular Filtration Rate 25 mL/min (>60); Est Glom Filt Rate - Afr Amer 30 mL/min (>60); Globulin 4.1 g/dL (2.2-4.2); Glucose 232 mg/dL (74-106); Hemoglobin A1c 6.6 % (3.8-5.6); Potassium 4.9 mmol/L (3.5-5.1); Protein, Total 7.4 g/dL (6.4-8.2); Sodium Level 139 mmol/L (136-145)
== END | disposition home or self-care (01) ==
LOC: BFHLAB 10:31
PROVIDERS: PCP Family Medicine; Visit Provider Family Medicine
DX: D64.9 Anemia, unspecified (principal); E11.3299 Type 2 diabetes mellitus with mild nonproliferative diabetic retinopathy without macular edema, unspecified eye; E11.65 Type 2 diabetes mellitus with hyperglycemia; N18.4 Chronic kidney disease, stage 4 (severe)
CPT/HCPCS: 36415; 80053; 83036; 85025

== ENCOUNTER → 2022-05-04 | Outpatient (CLI) | payer MEDICARE, MEDICAID, SELFPAY ==
[2022-05-04 15:35] LABS: Absolute Lymphocyte Count 1.85 X10^3/uL (0.83-4.51); Absolute Neutrophil Count 4.7 X10^3/uL (2.0-7.7); Basophil# 0.07 X10^3/uL; Basophil% 0.9 % (0-1); Eosinophil# 0.29 X10^3/uL; Eosinophils% 3.7 % (0-5); Hematocrit 35.3 % (37-47); Hemoglobin 10.8 g/dL (12.0-15.0); Lymphocyte # 1.85 X10^3/ul (0.83-4.51); Lymphocyte % 23.5 % (19-41); Mean Corp Hgb Conc 30.6 g/dL (32-36); Mean Corpuscular Hgb 28.8 pg (27.0-32.0); Mean Corpuscular Volume 94.1 fL (81-99); Mean Platelet Vol. 12.7 fl (6.2-12.0); Monocyte# 0.96 X10^3/uL; Monocyte% 12.2 % (0-10); NRBC Flagged by Analyzer 0 % (0-5); Neutrophil # 4.65 X10^3/uL (2.7-7.7); Neutrophil % 59.2 % (47-70); Platelet Count 267 K/mm3 (150-450); RBC Distribution Width CV 16.6 % (11.6-14.6); RBC Distribution Width SD 57.8 fl (35.1-43.9); Red Blood Count 3.75 M/mm3 (4.2-5.4); White Blood Count 7.9 K/mm3 (4.4-11.0)
[2022-05-04 16:35] LABS: ALB/GLOB Ratio 0.9 RATIO (0.9-2.4); AST(SGOT) 18 U/L (15-37); Alanine Aminotransfer ALT/SGPT 22 U/L (13-56); Albumin, Serum 3.7 g/dL (3.2-5.0); Alkaline Phosphatase 66 U/L (45-117); Anion Gap 7 (5-15); BNP,B-Type NATRIURETIC PEPTIDE 342.8 pg/mL (0-100); BUN 79 mg/dL (7-18); BUN/Creat Ratio 28.9 RATIO (10-20); Calcium,Total 9.3 mg/dL (8.5-10.1); Chloride 102 mmol/L (98-107); Creatinine, Serum 2.73 mg/dL (0.55-1.02); EST Glomerular Filtration Rate 18 mL/min (>60); Est Glom Filt Rate - Afr Amer 22 mL/min (>60); Globulin 3.9 g/dL (2.2-4.2); Glucose 259 mg/dL (74-106); Hemoglobin A1c 7.2 % (3.8-5.6); Potassium 4.7 mmol/L (3.5-5.1); Protein, Total 7.6 g/dL (6.4-8.2); Sodium Level 140 mmol/L (136-145)
== END | disposition home or self-care (01) ==
LOC: BFHLAB 11:16
PROVIDERS: PCP Family Medicine; Visit Provider Family Medicine
DX: E11.22 Type 2 diabetes mellitus with diabetic chronic kidney disease (principal); N18.4 Chronic kidney disease, stage 4 (severe); I25.5 Ischemic cardiomyopathy; R06.02 Shortness of breath
CPT/HCPCS: 36415; 80053; 83036; 83880; 85025

== ENCOUNTER → 2022-06-05 | Outpatient (CLI) | payer MEDICARE, MEDICAID, SELFPAY ==
[2022-06-05 17:57] LABS: AST(SGOT) 24 U/L (15-37); Alanine Aminotransfer ALT/SGPT 25 U/L (13-56); Albumin, Serum 3.9 g/dL (3.2-5.0); Alkaline Phosphatase 76 U/L (45-117); Anion Gap 7 (5-15); BUN 51 mg/dL (7-18); BUN/Creat Ratio 25.9 RATIO (10-20); Calcium,Total 9.4 mg/dL (8.5-10.1); Chloride 103 mmol/L (98-107); Creatinine, Serum 1.97 mg/dL (0.55-1.02); EST Glomerular Filtration Rate 26 mL/min (>60); Est Glom Filt Rate - Afr Amer 32 mL/min (>60); Globulin 3.9 g/dL (2.2-4.2); Glucose 204 mg/dL (74-106); Magnesium 2.3 mg/dL (1.6-2.6); Potassium 4.4 mmol/L (3.5-5.1); Protein, Total 7.8 g/dL (6.4-8.2); Sodium Level 142 mmol/L (136-145)
[2022-06-05 18:03] LABS: Vitamin D,25 Hydroxy 11.7 ng/mL
[2022-06-05 18:39] LABS: BNP,B-Type NATRIURETIC PEPTIDE 502.8 pg/mL (0-100)
== END | disposition home or self-care (01) ==
LOC: BFHLAB 14:45
PROVIDERS: PCP Family Medicine; Visit Provider Family Medicine
DX: I25.5 Ischemic cardiomyopathy (principal); N18.4 Chronic kidney disease, stage 4 (severe); E55.9 Vitamin D deficiency, unspecified; Z51.81 Encounter for therapeutic drug level monitoring; R06.9 Unspecified abnormalities of breathing
CPT/HCPCS: 36415; 80053; 82306; 83735; 83880

== ENCOUNTER → 2022-09-04 | Outpatient (CLI) | payer MEDICARE, MEDICAID, SELFPAY ==
[2022-09-04 11:22] LABS: Anion Gap 0 (5-15); BUN 42 mg/dL (7-18); BUN/Creat Ratio 24.7 RATIO (10-20); Calcium,Total 8.9 mg/dL (8.5-10.1); Chloride 106 mmol/L (98-107); EST Glomerular Filtration Rate 31 mL/min (>60); Est Glom Filt Rate - Afr Amer 37 mL/min (>60); Glucose 255 mg/dL (74-106); Potassium 4.3 mmol/L (3.5-5.1); Sodium Level 138 mmol/L (136-145)
[2022-09-04 11:24] LABS: BNP,B-Type NATRIURETIC PEPTIDE 865.4 pg/mL (0-100)
== END | disposition home or self-care (01) ==
PROVIDERS: PCP Family Medicine; Referring Provider Nurse Practitioner Family; Visit Provider Nurse Practitioner Family
DX: I50.20 Unspecified systolic (congestive) heart failure (principal); I25.5 Ischemic cardiomyopathy
CPT/HCPCS: 36415; 80048; 83880

== ENCOUNTER 2022-10-03 07:59 | Outpatient (CLI) | payer MEDICARE, MEDICAID, SELFPAY ==
[2022-10-03 08:07] VITALS: BP 146/55; PULSE 64; RESP 16; TEMP 36.6; O2SAT 99
[2022-10-03] MEDS: 0.9% NaCl Peripheral Flush Adult/Peds IV (08:12)
[2022-10-03] MEDS: 0.9% NaCl IVPB Med Flush (250 mL) 15 ML IV (08:17)
[2022-10-03 10:43] VITALS: BP 156/56; PULSE 62; RESP 16; TEMP 36.4; O2SAT 100
== END 2022-10-03 08:00 | disposition home or self-care (01) ==
LOC: MEDOUTP 08:00
PROVIDERS: PCP Family Medicine
DX: D50.9 Iron deficiency anemia, unspecified (principal)
CPT/HCPCS: 96365; J7050; A4216; J2916

== ENCOUNTER 2022-10-12 09:22 | Inpatient (IN) | payer MEDICARE, MEDICAID, SELFPAY ==
[2022-10-12] VITALS (13 sets, daily range): BP systolic 137–171; BP diastolic 60–95; PULSE 61–86; RESP 16–34; TEMP 36.4–36.9; O2SAT 93–96; BMI 40.8; BMI 37.6
--- NOTE | 2022-10-12 09:32 | EKG12_ITS ---
Test Reason : Blood Pressure : / mmHG Vent. Rate : 065 BPM Atrial Rate : 065 BPM P-R Int : 142 ms QRS Dur : 144 ms QT Int : 470 ms P-R-T Axes : 065 -10 150 degrees QTc Int : 488 ms Normal sinus rhythm Left bundle branch block Abnormal ECG Confirmed by TIN TORRES, SCOTT ([id number]), newspaper or periodical editor MICHAEL BARROSO ([id number]) on 10/16/2022 10:32:16 A M Referred By: Confirmed By:CLIVE CASTLE MD
--- NOTE | 2022-10-12 09:32 | RAD_ITS ---
STUDY: X-RAY CHEST REASON FOR EXAM: Female, 77 years old. Dyspnea, hypoxia, bilateral rales, pedal edema TECHNIQUE: AP and lateral views of the chest. COMPARISON: Comparison is made with prior study dated March 02, 2021. FINDINGS: EKG electrodes are seen. Basilar congestion and a mild degree of CHF. Blunting of both costophrenic angles posteriorly. Sternal cerclage wires and vascular clips are present from a prior sternotomy and coronary artery bypass graft procedure (CABG). Borderline cardiomegaly. Normal mediastinum and hayder. Normal visualized pulmonary arteries. Normal visualized aortic arch and descending thoracic aorta. There are degenerative changes of the visualized thoracic spine. Normal visualized ribs, clavicles, and shoulders. There is no demonstrated abnormality of the visualized soft tissue structures of the upper abdomen. RAD/Chest PA and Lateral IMPRESSION: Vascular congestion and mild degree of CHF with blunting of both costophrenic angles posteriorly. Electronically Signed: Ketan Price MD at 10:44 EDT ,
--- NOTE | 2022-10-12 10:03 | EDS_ITS ---
HPI History of Present Illness Chief Complaint: Shortness of Breath Detail of Chief Complaint: Increasing shortness of breath and edema Informant: patient, EMS and SNF Onset/Context/Timing Onset: Days Context: gradual Timing: Continuous Quality: Positive for Dyspnea on exertion, Orthopnea and Wheezing; Negative for PND Current Severity: Mild Maximum Severity: Severe Worsened by: Exertion and Lying flat; Not Worsened By Coughing Relieved by: Nothing and Oxygen (Baseline oxygen of 2 L. Presently on 5 L.) Associated Symptoms cough; Negative for rhinorrhea, post nasal drip, ear pain, fever, sore throat, subjective, chills, sweats, clear sputum, white sputum, yellow sputum or green sputum Chest Pain: Positive for None Narrative Narrative: Patient is a [place] woman with history of ischemic cardiomyopathy, type 2 diabetes, chronic respiratory failure with hypoxia on home oxygen 2 L by nasal cannula, COPD with bronchospasm, atherosclerotic heart disease with history of non-ST elevation MO, status post bypass surgery, essential hypertension, hyperlipidemia and chronic kidney disease. She denies history of DVT however review of indicates she does have history of DVT. She arrives via EMS from nursing facility because of increased shortness of breath and edema with weight gain and spite of increased Lasix dose. Patient denies chest pressure or tightness. She denies fever, chills night sweats. Denies weight loss. She has had weight gain. She denies headache, visual, ocular auditory symptoms. She does report mild chronic cough that is nonproductive. She denies abdominal pain, nausea, vomiting or diarrhea. She denies dysuria, frequency, urgency or hematuria. She does report blisters to her lower extremity with swelling. Patient is uncertain whether the swelling is worse at night or better in the morning. Patient states she is not very active. Review of prior records indicate she has history of heart failure with decreased ejection fraction. PE Risk Factors: Positive for Prior DVT or PE; Negative for Cancer, OCP + Smoking + > 35, Recent immobilization, Recent surgery or Recent travel Prior similar symptoms: Yes Recent Illness/Hospitalization: No PFSH PFSH Medical History Allergic rhinitis Anemia Anxiety disorder Atherosclerotic heart disease of [place] coronary artery without angina pectoris Cardiomyopathy, ischemic Chronic renal failure, stage 3 (moderate) COPD (chronic obstructive pulmonary disease) COPD exacerbation Debility Depression Diabetes mellitus, type 2 DVT of lower extremity (deep venous thrombosis) (2013) Essential hypertension Gastroesophageal reflux disease with hiatal hernia History of non-ST elevation myocardial infarction (NSTEMI) (07/13/20) Hyperlipidemia Left bundle branch block Lung nodule [place]ieres disease Obesity (BMI 30-39.9) Pulmonary edema Stage 2 moderate COPD by GOLD classification Home Medications famotidine 20 mg tablet 20 mg PO BID stomach 08/14/15 [History Last Taken 10/12/22] flash glucose scanning reader (AskBotStyle [place] 2 [facility]) #1 ea 01/29/20 [Rx Last Taken Unknown] flash glucose sensor (FreeStyle Sharita 2 Sensor kit) #2 ea 01/29/20 [Rx Last Taken Unknown] pen needle, diabetic 32 gauge x 5/32 (BD Ultra-Fine Kaylyn Pen Needle) #100 ea 01/29/20 [Rx Last Taken Unknown] blood sugar diagnostic (AskBotStyle Precision [place] Strips) #50 ea 01/30/20 [Rx Last Taken Unknown] acetaminophen 325 mg tablet 650 mg PO Q4H PRN Pain 08/17/20 [History Last Taken Unknown] aspirin 81 mg tablet,delayed release (Adult Low Dose Aspirin) 81 mg PO DAILY 08/17/20 [History Last Taken 10/12/22] atorvastatin 40 mg tablet 40 mg PO QHS 08/17/20 [History Last Taken 10/11/22] fenofibrate 160 mg tablet 160 mg PO DAILY 08/17/20 [History Last Taken 10/12/22] insulin lispro 100 unit/mL subcutaneous pen See Protocol subcut ACHS 08/17/20 [History Last Taken 10/11/22] carvedilol 6.25 mg tablet 6.25 mg PO BID 10/24/20 [History Last Taken 10/12/22] ascorbic acid (vitamin C) 500 mg tablet 500 mg PO BID 09/04/22 [History Last Taken 10/11/22] ferrous sulfate 325 mg (65 mg iron) tablet 325 mg PO BID 09/04/22 [History Last Taken 10/12/22] furosemide 40 mg tablet 40 mg PO DAILY 09/04/22 [History Last Taken 10/12/22] gabapentin 100 mg capsule 100 mg PO BID NERVE PAIN 09/04/22 [History Last Taken 10/12/22] insulin glargine 100 unit/mL (3 mL) subcutaneous pen (Lantus Solostar U-100 Insulin) 25 unit subcut QHS diabetes 09/04/22 [History Last Taken 10/11/22] insulin glargine 100 unit/mL subcutaneous solution (Lantus U-100 Insulin) 32 unit subcut QAM 09/04/22 [History Last Taken 10/11/22] montelukast 10 mg tablet 10 mg PO DAILY 09/04/22 [History Last Taken 10/12/22] sennosides 8.6 mg-docusate sodium 50 mg capsule (Senna Plus) 1 tab-cap PO BID PRN Constipation 09/04/22 [History Last Taken Unknown] warfarin 3 mg tablet 3 mg PO WE DVT 09/04/22 [History Last Taken 10/11/22] bisacodyl 10 mg rectal suppository (Dulcolax (bisacodyl)) [address] DAILY PRN Constipation 10/03/22 [History Last Taken Unknown] magnesium hydroxide 400 mg/5 mL oral suspension (Milk of Magnesia) 400 mg PO DAILY PRN Constipation 10/03/22 [History Last Taken Unknown] albuterol sulfate 2.5 mg/3 mL (0.083 %) solution for nebulization 2.5 mg inhalation Q4H PRN shortness of breath or wheezing 10/11/22 [History Last Taken 10/12/22] gabapentin 100 mg capsule 100 mg PO DAILY PRN NERVE PAIN 10/11/22 [History Last Taken Unknown] polyethylene glycol 3350 17 gram/dose oral powder (Miralax) 4 g PO DAILY PRN Constipation 10/11/22 [History Last Taken Unknown] sodium phosphates 19 gram-7 gram/118 mL enema (Enema) [address] ONCE 10/11/22 [History Last Taken Unknown] warfarin 2 mg tablet 2 mg PO SUMOTUTHFRSA 10/11/22 [History Last Taken 10/10/22] cetirizine 10 mg tablet (Zyrtec) 10 mg PO DAILY ALLERGIES 10/12/22 [History Last Taken 10/11/22] cholecalciferol (vitamin D3) 25 mcg (1,000 unit) tablet 25 mcg PO DAILY SUPPLEMENT 10/12/22 [History Last Taken 10/12/22] cyanocobalamin (vitamin B-12) 500 mcg tablet (Vitamin B-12) 500 mcg PO DAILY SUPPLEMENT 10/12/22 [History Last Taken 10/12/22] hydroxyzine pamoate 25 mg capsule (Vistaril) 25 mg PO Q8H PRN Anxiety 10/12/22 [History Last Taken Unknown] lorazepam 0.5 mg tablet 0.5 mg PO Q6H PRN Anxiety 10/12/22 [History Last Taken 10/11/22] sertraline 100 mg tablet (Zoloft) 100 mg PO QHS DEPRESSION 10/12/22 [History Last Taken 10/11/22] sertraline 25 mg tablet (Zoloft) 25 mg PO DAILY DEPRESSION 10/12/22 [History Last Taken 10/11/22] Allergy/AdvReac Type Severity Reaction Status Date / Time Penicillins Allergy Angioedema Verified 10/12/22 09:22 rosiglitazone maleate Allergy hyperglycem Verified 10/12/22 09:22 [From Avandia] ia adhesive tape AdvReac Rash Verified 10/12/22 09:22 cephalexin [From Keflex] AdvReac Diarrhea Verified 10/12/22 09:22 doxycycline AdvReac Diarrhea Verified 10/12/22 09:22 prednisone AdvReac hyperglycem Verified 10/12/22 09:22 ia Sulfa (Sulfonamide AdvReac Unknown Verified 10/12/22 09:22 Antibiotics) Family History Sister Lupus Arthritis Brother Colon cancer Cancer Prostate Cancer Arthritis Father Diabetes Heart disease Mother Hypertension Surgical History H/O coronary artery bypass surgery (07/27/20) History of History of cholecystectomy History of left heart catheterization (07/19/20) Social History household members: other details: passed 08/2020. housing: assisted Smoking Status: Former smoker how long ago did patient quit smokin alcohol intake: never substance use type: does not use caffeine: No what type of physical activity do you participate in: none frequency: does not exercise seatbelt use: always ROS ROS ED Constitutional Constitutional ED: Denies chills, fever(s), sweats or weight loss Eyes Eyes: Denies blurry vision, change in vision or diplopia ENT ENT ED: Denies ear pain, rhinorrhea or sore throat Cardiovascular Cardiovascular: Reports orthopnea and palpitations; Denies chest pain, paroxysmal nocturnal dyspnea or racing heartbeat Respiratory/Chest Respiratory/Chest: Reports cough, dyspnea, dyspnea on exertion and orthopnea; Denies paroxysmal nocturnal dyspnea or sputum Gastrointestinal Gastrointestinal: Reports other Details: Patient states stool is dark. She is on iron tablets. ; Denies abdominal pain, diarrhea, melena, nausea or vomiting Genitourinary Genitourinary ED: Denies dysuria, hematuria or urinary frequency Musculoskeletal Musculoskeletal: Denies arthralgias, back pain, myalgias or neck pain Integumentary Denies rash Neurologic Neurologic: Reports weakness; Denies headache(s) or paresthesias Hematologic/Lymphatic Hematologic/Lymphatic: Denies easy bleeding or easy bruising EXAM Physical Exam Const Vital Signs: 10/12/22 09:24 10/12/22 09:32 10/12/22 09:32 Temperature 98.3 F Temperature Source Temporal Pulse Rate 62 Respiratory Rate 25 H Respiratory Effort Short of Breath Accessory Muscle Use Respiratory Depth Normal Respiratory Pattern Tachypnea Blood Pressure 137/95 H Blood Pressure Mean 109 Pulse Ox 93 Oxygen Delivery Method Nasal Cannula Nasal Cannula Nasal Cannula Oxygen Flow Rate (L/min) 3 10/12/22 10:53 10/12/22 11:15 10/12/22 10:22 Temperature Temperature Source Pulse Rate 70 61 Respiratory Rate 18 25 H Respiratory Effort Respiratory Depth Respiratory Pattern Blood Pressure Blood Pressure Mean Pulse Ox 95 94 Oxygen Delivery Method Nasal Cannula Nasal Cannula Oxygen Flow Rate (L/min) 2 10/12/22 11:22 Temperature Temperature Source Pulse Rate 65 Respiratory Rate 21 H Respiratory Effort Respiratory Depth Respiratory Pattern Blood Pressure Blood Pressure Mean Pulse Ox 95 Oxygen Delivery Method Nasal Cannula Oxygen Flow Rate (L/min) Positive well nourished, well developed and obese Constitutional Narrative: There is use of accessory muscles. Patient is on more oxygen than baseline. She appears pale. Her respiratory rate is 25. General Appearance ED: well developed and pallor; Negative for NAD Nutritional Appearance: obese HEENT Reports dry mucous membranes HEENT Narrative: Head is atraumatic normocephalic. Ears are normal. Nares are patent. Posterior pharynx is normal. Mouth ED: Yes dry mucous membranes Mouth: dry mucous membranes Eyes PERRL and EOMs intact bilaterally General Eye ED: Yes pale conjunctiva; Negative for scleral icterus Neck no lymphadenopathy, supple and no meningeal signs Neck Narrative: Unable to determine if patient has JVD due to body but is. Chest Wall Chest Narrative: Median sternotomy scar that is well-healed is noted. Resp No normal respiratory effort and No clear to auscultation bilaterally Auscultation: rales right 1/[address] way up and left 2/3 way up and wheezes expiratory wheezes, scattered wheezes and throughout Cardio regular rate, regular rhythm, S1 normal heart sound, S2 normal heart sound and no murmurs GI non-tender, non-distended and no masses Auscultation: normoactive bowel sounds Palpation: soft Back/Spine no CVA tenderness; Negative for normal to inspection Back/Spine Narrative: Patient has venous stasis dermatitis bilateral blistering. There is marked pitting edema. There are well-healed scars noted due to prior surgery. Extremity Negative for normal to inspection Extremity Narrative: Documented under the back portion of the exam Neuro oriented x3, CN's II-XII intact bilaterally and no sensory deficits noted [place] Coma Scale: document GCS findings Spontaneous Obeys Commands Oriented 15 Sensorium / Orientation: alert Psych mental status grossly normal Skin Skin Narrative: No acute wounds noted. There is blistering lower extremities with evidence of venous stasis this General Skin Exam: pallor MDM MDM MDM Narrative Medical decision making narrative: Suspect patient is fluid overloaded. This may be due to exacerbation of CHF, ca rdiac ischemia, since active pulmonary hypertension due to obstructive sleep apnea and need to evaluate renal function specially since she has known end- stage kidney disease, stage IV. Work-up included EKG, chest x-ray, appropriate blood work to assess for anemia which is of concern since she is very pale and conjunctive is pale. Electrolyte panel to assess renal function, CO2 anion gap and glucose. Patient received 80 mg of Lasix since clinically she is fluid overloaded. Inhalers were not used since the wheezing may be cardiac wheezing due to heart failure. Will order albuterol if there is no evidence of heart failure on chest x-ray. History & Record Review Additional record(s) reviewed:: Prior inpatient record (Documented HPI narrative), Prior outpatient record and Prior ED visit Lab Data Attestation: I reviewed the patient's lab results. Lab results narrative: CBC is remarkable for anemia. INR 3.1 which is therapeutic. Competence metabolic panel reveals elevated CO2. Anion gap is normal. BUN and creatinine are elevated at 36 and 1.74. Troponin is normal with greater than 24 hours of pain. ENT elevated at 1379 which is higher than baseline. Suspect patient has a combination of mild CHF and COPD exacerbation. Macrocytic scopic UA is unremarkable other than trace blood. Labs: Laboratory Results - last 24 hr 10/12/22 10/12/22 10/12/22 09:56 09:56 09:56 WBC 9.1 RBC 3.43 L Hgb 9.9 L Hct 34.1 L MCV 99.4 H MCH 28.9 MCHC 29.0 L RDW Std Deviation 61.4 H RDW Coeff of [place] 16.6 H Plt Count 226 MPV 12.3 H Immature Gran % (Auto) 0.600 Neut % (Auto) 66.2 Lymph % (Auto) 15.6 L [place] % (Auto) 13.7 H Eos % (Auto) 3.2 Baso % (Auto) 0.7 Absolute Neuts (auto) 6.0 Absolute Lymphs (auto) 1.41 Nucleated RBC % 0 PT 32.8 H INR 3.1 Sodium 143 Potassium 4.8 Chloride 107 Carbon Dioxide 33.0 H Anion Gap 3 L BUN 36 H Creatinine 1.74 H Estim Creat Clear Calc 20.11 Est GFR (MDRD) Af Amer 36 L Est GFR (MDRD) Non-Af 30 L BUN/Creatinine Ratio 20.7 H Glucose 90 Calcium 9.5 Troponin I High Sens 36 B-Natriuretic Peptide Urine Color Urine Clarity Urine pH Ur Specific [place] Urine Protein Urine Glucose (UA) Urine Ketones Urine Occult Blood Urine Nitrite Urine Bilirubin Urine Urobilinogen Ur Leukocyte Esterase Urine RBC Urine WBC Ur Squamous Epith Cells Urine Bacteria Urine Mucus 10/12/22 10/12/22 09:56 10:14 WBC RBC Hgb Hct MCV MCH MCHC RDW Std Deviation RDW Coeff of [place] Plt Count MPV Immature Gran % (Auto) Neut % (Auto) Lymph % (Auto) [place] % (Auto) Eos % (Auto) Baso % (Auto) Absolute Neuts (auto) Absolute Lymphs (auto) Nucleated RBC % PT INR Sodium Potassium Chloride Carbon Dioxide Anion Gap BUN Creatinine Estim Creat Clear Calc Est GFR (MDRD) Af Amer Est GFR (MDRD) Non-Af BUN/Creatinine Ratio Glucose Calcium Troponin I High Sens B-Natriuretic Peptide 1379.5 H Urine Color Yellow Urine Clarity Clear Urine pH 6.0 Ur Specific [place] 1.015 Urine Protein Negative Urine Glucose (UA) Normal Urine Ketones Negative Urine Occult Blood 25 H Urine Nitrite Negative Urine Bilirubin Negative Urine Urobilinogen Normal Ur Leukocyte Esterase Negative Urine RBC 0 SEEN Urine WBC 0 SEEN Ur Squamous Epith Cells 0-5 SEEN Urine Bacteria 0 SEEN Urine Mucus 0 SEEN Radiography Chest X-Ray - ED: 2 View and Read by ED Physician (Inspiratory volume is slightly restricted. Cardiac silhouette is unremarkable. There is no evidence of effusion or pneumothorax. There is no cephalization or curly B-lines noted. There is no obvious infiltrate. There is some increased haziness noted left greater than right. We will need to com) Diagnostic Testing: Clinical Impression(s) from Imaging Studies Chest X-Ray 10/12/22 09:32 IMPRESSION: Vascular congestion and mild degree of CHF with blunting of both costophrenic angles posteriorly. Electronically Signed: Ketan Price MD at 10:44 EDT , Rhythm Strip Rhythm Strip: Sinus Rhythm Rate: 72 EKG Initial EKG: Attestation: I personally reviewed and interpreted this EKG as follows: Interpretation: Sinus Rhythm (Rate is 65. There is evidence of a left bundle branch block, which is old, CT interval is 142 ms. Cures duration 144 ms. QT duration 470 ms.) Prior: Unchanged Treatment and Re-Evaluation :: Since patient is still wheezing and tachypneic dose of Solu-Medrol was ordered. Initially this was not because she has had problems with regulation of her blood sugars. Case was discussed with the hospitalist who agrees with admission. Patient was reassessed at 1126. She is still tachypneic. She still has wheezing. Hospitalist been paged for admission Discharge Plan Dx/Rx/DC Orders Clinical Impression: Acute exacerbation of CHF (congestive heart failure), Diabetes mellitus, type 2, Atherosclerotic heart disease of [place] coronary artery without angina pectoris, Cardiomyopathy, ischemic, Chronic kidney disease, stage 4 (severe), Acute exacerbation of chronic obstructive pulmonary disease, Acute bronchospasm Disposition Disposition: Acute Care Hospital [facility]
[2022-10-12 10:12] LABS: Absolute Lymphocyte Count 1.41 X10^3/uL (0.83-4.51); Basophil# 0.06 X10^3/uL; Basophil% 0.7 % (0-1); Eosinophil# 0.29 X10^3/uL; Eosinophils% 3.2 % (0-5); Hematocrit 34.1 % (37-47); Hemoglobin 9.9 g/dL (12.0-15.0); Lymphocyte # 1.41 X10^3/ul (0.83-4.51); Lymphocyte % 15.6 % (19-41); Mean Corpuscular Hgb 28.9 pg (27.0-32.0); Mean Corpuscular Volume 99.4 fL (81-99); Mean Platelet Vol. 12.3 fl (6.2-12.0); Monocyte# 1.24 X10^3/uL; Monocyte% 13.7 % (0-10); NRBC Flagged by Analyzer 0 % (0-5); Neutrophil % 66.2 % (47-70); Platelet Count 226 K/mm3 (150-450); RBC Distribution Width CV 16.6 % (11.6-14.6); RBC Distribution Width SD 61.4 fl (35.1-43.9); Red Blood Count 3.43 M/mm3 (4.2-5.4); White Blood Count 9.1 K/mm3 (4.4-11.0)
[2022-10-12 10:21] LABS: Bacteria 0 SEEN /hpf (None Seen); Mucous, Urine 0 SEEN /hpf (<or=2+); Red Blood Cells-Urine 0 SEEN /hpf (0-5); White Blood Cells 0 SEEN /hpf (0-5)
[2022-10-12] MEDS: Furosemide 100 MG/10 ML Vial 80 MG IV (10:21)
[2022-10-12] MEDS: Ipratropium/Albuterol Sulfate 3 ML AMPUL.NEB INHALATION ×4 (10:23→22:34)
[2022-10-12 10:24] LABS: International Normalized Ratio 3.1; Prothrombin Time (Protime)PT. 32.8 SECONDS (11.7-14.9)
[2022-10-12 10:29] LABS: BNP,B-Type NATRIURETIC PEPTIDE 1379.5 pg/mL (0-100)
[2022-10-12 10:29] LABS: Color, Urine Yellow (Yellow); Glucose, Dipstick Normal (Normal); Ketone-Dipstick Negative (Negative); Leukocyte Esterase-Dipstick Negative /ul (Negative); Nitrite-Dipstick Negative (Negative); Occult Blood-Urine 25 /ul (Negative); Protein-Dipstick Negative (Negative); Specific Gravity, Urine 1.015 (1.002-1.030); Urine Bilirubin Dipstick Negative (Negative); Urine Clarity Clear (Clear); Urine Urobilinogen Normal (Normal)
[2022-10-12 10:31] LABS: Anion Gap 3 (5-15); BUN 36 mg/dL (7-18); BUN/Creat Ratio 20.7 RATIO (10-20); Calcium,Total 9.5 mg/dL (8.5-10.1); Chloride 107 mmol/L (98-107); Creatinine, Serum 1.74 mg/dL (0.55-1.02); EST Glomerular Filtration Rate 30 mL/min (>60); Est Glom Filt Rate - Afr Amer 36 mL/min (>60); Estimated Creatinine Clearance 20.11 ml/min; Glucose 90 mg/dL (74-106); Potassium 4.8 mmol/L (3.5-5.1); Sodium Level 143 mmol/L (136-145); Troponin-I HS 36 pg/mL (3.0-54.0)
--- NOTE | 2022-10-12 10:59 | CM.ED ---
Social Work SW introduced self and role to patient. Patient is from [facility]. Pt is possibly interested in going to a different SNF upon discharge. A list of SNF providers including quality and resource use data and consistent with patient?s preferred geographic region, medical needs, and insurance network were provided from the [facility]. Pt will review list and discuss with son. Rayne Sung MEDICAL CLAIMS PROCESSOR, [employer]
[2022-10-12 11:03] LABS: Squamous Epithelial Cells - UA 0-5 SEEN /hpf (5-10)
[2022-10-12] MEDS: Albuterol 2.5 MG/3 ML VIAL.NEB. INHALATION (11:13)
[2022-10-12 11:38] LABS: Bedside Glucose 66 mg/dL (74-106)
--- NOTE | 2022-10-12 11:48 | NURSING ---
ASHLEY PUGA EXAC OF CHF AND COPD
[2022-10-12 11:55] LABS: Bedside Glucose 82 mg/dL (74-106)
--- NOTE | 2022-10-12 12:01 | PCM.HP.STD ---
[facility] - General General Date of Admission: 10/12/22 Date of Service: 10/12/22 Chief Complaint: Shortness of breath HPI Narrative VAMSHI MARTIN, is a 77 F with past medical history significant for coronary artery disease with previous CABG, COPD, history of previous DVT on systemic anticoagulation currently residing at an extended care facility presented with shortness of breath. Per patient shortness of breath have been uncommon for the past couple of days. She also did notice increasing swelling involving both lower extremities. Was brought to the emergency department was initially hypoxic with oxygen saturation in the high 80s on 2 L. This was increased to 5 L to maintain oxygen saturation above 90. Chest x-ray obtained did show vascular congestion. An assessment of acute hypoxia secondary to combination of CHF and COPD admitted admitted to a monitored bed for further management [facility] Medical History Allergic rhinitis Anemia Anxiety disorder Atherosclerotic heart disease of [place] coronary artery without angina pectoris Cardiomyopathy, ischemic Chronic renal failure, stage 3 (moderate) COPD (chronic obstructive pulmonary disease) COPD exacerbation Debility Depression Diabetes mellitus, type 2 DVT of lower extremity (deep venous thrombosis) (2012) Essential hypertension Gastroesophageal reflux disease with hiatal hernia History of non-ST elevation myocardial infarction (NSTEMI) (07/13/20) Hyperlipidemia Left bundle branch block Lung nodule [place]ieres disease Obesity (BMI 30-39.9) Pulmonary edema Stage 2 moderate COPD by GOLD classification Home Medications famotidine 20 mg tablet 20 mg PO BID stomach 08/14/15 [History Last Taken 10/12/22] flash glucose scanning reader (FreeStyle Sharita 2 Porter) #1 ea 01/29/20 [Rx Last Taken Unknown] flash glucose sensor (FreeStyle Sharita 2 Sensor kit) #2 ea 01/29/20 [Rx Last Taken Unknown] pen needle, diabetic 32 gauge x 5/32 (BD Ultra-Fine Kaylyn Pen Needle) #100 ea 01/29/20 [Rx Last Taken Unknown] blood sugar diagnostic (FreeStyle Precision Richardson Strips) #50 ea 01/30/20 [Rx Last Taken Unknown] acetaminophen 325 mg tablet 650 mg PO Q4H PRN Pain 08/17/20 [History Last Taken Unknown] aspirin 81 mg tablet,delayed release (Adult Low Dose Aspirin) 81 mg PO DAILY 08/17/20 [History Last Taken 10/12/22] atorvastatin 40 mg tablet 40 mg PO QHS 08/17/20 [History Last Taken 10/11/22] fenofibrate 160 mg tablet 160 mg PO DAILY 08/17/20 [History Last Taken 10/12/22] insulin lispro 100 unit/mL subcutaneous pen See Protocol subcut ACHS 08/17/20 [History Last Taken 10/11/22] carvedilol 6.25 mg tablet 6.25 mg PO BID 10/24/20 [History Last Taken 10/12/22] ascorbic acid (vitamin C) 500 mg tablet 500 mg PO BID 09/04/22 [History Last Taken 10/11/22] ferrous sulfate 325 mg (65 mg iron) tablet 325 mg PO BID 09/04/22 [History Last Taken 10/12/22] furosemide 40 mg tablet 40 mg PO DAILY 09/04/22 [History Last Taken 10/12/22] gabapentin 100 mg capsule 100 mg PO BID NERVE PAIN 09/04/22 [History Last Taken 10/12/22] insulin glargine 100 unit/mL (3 mL) subcutaneous pen (Lantus Solostar U-100 Insulin) [address] [facility] diabetes 09/04/22 [History Last Taken 10/11/22] insulin glargine 100 unit/mL subcutaneous solution (Lantus U-100 Insulin) 32 unit subcut QAM 09/04/22 [History Last Taken 10/11/22] montelukast 10 mg tablet 10 mg PO DAILY 09/04/22 [History Last Taken 10/12/22] sennosides 8.6 mg-docusate sodium 50 mg capsule (Senna Plus) 1 tab-cap PO BID PRN Constipation 09/04/22 [History Last Taken Unknown] warfarin 3 mg tablet 3 mg PO WE DVT 09/04/22 [History Last Taken 10/11/22] bisacodyl 10 mg rectal suppository (Dulcolax (bisacodyl)) 10 mg IN DAILY PRN Constipation 10/03/22 [History Last Taken Unknown] magnesium hydroxide 400 mg/5 mL oral suspension (Milk of Magnesia) 400 mg PO DAILY PRN Constipation 10/03/22 [History Last Taken Unknown] albuterol sulfate 2.5 mg/3 mL (0.083 %) solution for nebulization 2.5 mg inhalation Q4H PRN shortness of breath or wheezing 10/11/22 [History Last Taken 10/12/22] gabapentin 100 mg capsule 100 mg PO DAILY PRN NERVE PAIN 10/11/22 [History Last Taken Unknown] polyethylene glycol 3350 17 gram/dose oral powder (Miralax) 4 g PO DAILY PRN Constipation 10/11/22 [History Last Taken Unknown] sodium phosphates 19 gram-7 gram/118 mL enema (Enema) 118 ml IN ONCE 10/11/22 [History Last Taken Unknown] warfarin 2 mg tablet 2 mg PO SUMOTUTHFRSA 10/11/22 [History Last Taken 10/10/22] cetirizine 10 mg tablet (Zyrtec) 10 mg PO DAILY ALLERGIES 10/12/22 [History Last Taken 10/11/22] cholecalciferol (vitamin D3) 25 mcg (1,000 unit) tablet 25 mcg PO DAILY SUPPLEMENT 10/12/22 [History Last Taken 10/12/22] cyanocobalamin (vitamin B-12) 500 mcg tablet (Vitamin B-12) 500 mcg PO DAILY SUPPLEMENT 10/12/22 [History Last Taken 10/12/22] hydroxyzine pamoate 25 mg capsule (Vistaril) 25 mg PO Q8H PRN Anxiety 10/12/22 [History Last Taken Unknown] lorazepam 0.5 mg tablet 0.5 mg PO Q6H PRN Anxiety 10/12/22 [History Last Taken 10/11/22] sertraline 100 mg tablet (Zoloft) 100 mg PO QHS DEPRESSION 10/12/22 [History Last Taken 10/11/22] sertraline 25 mg tablet (Zoloft) 25 mg PO DAILY DEPRESSION 10/12/22 [History Last Taken 10/11/22] Allergy/AdvReac Type Severity Reaction Status Date / Time Penicillins Allergy Angioedema Verified 10/12/22 09:22 rosiglitazone maleate Allergy hyperglycem Verified 10/12/22 09:22 [From Avandia] ia adhesive tape AdvReac Rash Verified 10/12/22 09:22 cephalexin [From Keflex] AdvReac Diarrhea Verified 10/12/22 09:22 doxycycline AdvReac Diarrhea Verified 10/12/22 09:22 prednisone AdvReac hyperglycem Verified 10/12/22 09:22 ia Sulfa (Sulfonamide AdvReac Unknown Verified 10/12/22 09:22 Antibiotics) Family History Sister Lupus Arthritis Brother Colon cancer Cancer Prostate Cancer Arthritis Father Diabetes Heart disease Mother Hypertension Surgical History H/O coronary artery bypass surgery (07/27/20) History of History of cholecystectomy History of left heart catheterization (07/19/20) Social History household members: other details: passed 08/2020. housing: assisted Smoking Status: Former smoker how long ago did patient quit smokin alcohol intake: never substance use type: does not use caffeine: No what type of physical activity do you participate in: none frequency: does not exercise seatbelt use: always ROS ROS Narrative GENERAL: denies fever, chills, night sweats, weight loss, anorexia HEENT: denies headache, sinus congestion, or drainage, dysphagia RESPIRATORY: cough, sputum production, shortness of breath, dyspnea on exertion CARDIAC: denies chest pain, palpitations, orthopnea, PND GASTROINTESTINAL: denies abdominal pain, nausea, vomiting, melena, GENITOURINARY: denies dysuria, urgency, frequency, heamaturia EXTREMITY: denies swelling MUSCULOSKELETAL: denies current joint pain or tenderness NEUROLOGIC: denies focal numbness, weakness, tingling HEMATOLOGIC: denies easy bruising and/or hemorrhage INTEGUMENT: denies rashes PSYCHIATRIC: denies suicidal or homicidal ideation Vital Signs Vital Signs Vital Signs: 10/12/22 09:24 10/12/22 09:32 10/12/22 09:32 Temperature 98.3 F Temperature Source Temporal Pulse Rate 62 Respiratory Rate 25 H Respiratory Effort Short of Breath Accessory Muscle Use Respiratory Depth Normal Respiratory Pattern Tachypnea Blood Pressure 137/95 H Blood Pressure Mean 109 Pulse Ox 93 Oxygen Delivery Method Nasal Cannula Nasal Cannula Nasal Cannula Oxygen Flow Rate (L/min) 3 10/12/22 10:53 10/12/22 11:15 10/12/22 10:22 Temperature Temperature Source Pulse Rate 70 61 Respiratory Rate 18 25 H Respiratory Effort Respiratory Depth Respiratory Pattern Blood Pressure Blood Pressure Mean Pulse Ox 95 94 Oxygen Delivery Method Nasal Cannula Nasal Cannula Oxygen Flow Rate (L/min) 2 10/12/22 11:22 Temperature Temperature Source Pulse Rate 65 Respiratory Rate 21 H Respiratory Effort Respiratory Depth Respiratory Pattern Blood Pressure Blood Pressure Mean Pulse Ox 95 Oxygen Delivery Method Nasal Cannula Oxygen Flow Rate (L/min) Weight Weight: 100.7 kg Body Mass Index (BMI) 40.8 Physical Exam Narrative GENERAL: cooperative but dyspneic at rest HEENT: Atraumatic; normocephalic EYES; Anicteric, Normal Conjunctiva NECK; supple, normal thyroid, RESPIRATORY: Diminished to auscultation, with some wheezes CARDIOVASCULAR: Regular S1 S2, GI: soft, normoactive bowel sounds, : No Renal angle tenderness; EXTREMITIES: No edema, no clubbing, MUSCULOSKELETAL: no muscle wasting NEURO: Awake; no lateralizing signs. SKIN: No Rash PSYCH; Flat affect Results Lab / Micro Data Result Diagrams: 10/12/22 09:56 10/12/22 09:56 Labs: Laboratory Results - last 24 hr 10/12/22 09:56: WBC 9.1, RBC 3.43 L, Hgb 9.9 L, Hct 34.1 L, MCV 99.4 H, MCH 28.9, MCHC 29.0 L, RDW Std Deviation 61.4 H, RDW Coeff of [place] 16.6 H, Plt Count 226, MPV 12.3 H, Immature Gran % (Auto) 0.600, Neut % (Auto) 66.2, Lymph % (Auto) 15.6 L, [place] % (Auto) 13.7 H, Eos % (Auto) 3.2, Baso % (Auto) 0.7, Absolute Neuts (auto) 6.0, Absolute Lymphs (auto) 1.41, Nucleated RBC % 0 10/12/22 09:56: PT 32.8 H, INR 3.1 10/12/22 09:56: Sodium 143, Potassium 4.8, Chloride 107, Carbon Dioxide 33.0 H, Anion Gap 3 L, BUN 36 H, Creatinine 1.74 H, Estim Creat Clear Calc 20.11, Est GFR (MDRD) Af Amer 36 L, Est GFR (MDRD) Non-Af 30 L, BUN/Creatinine Ratio 20.7 H, Glucose 90, Calcium 9.5, Troponin I High Sens 36 10/12/22 09:56: B-Natriuretic Peptide 1379.5 H 10/12/22 10:14: Urine Color Yellow, Urine Clarity Clear, Urine pH 6.0, Ur Specific [place] 1.015, Urine Protein Negative, Urine Glucose (UA) Normal, Urine Ketones Negative, Urine Occult Blood 25 H, Urine Nitrite Negative, Urine Bilirubin Negative, Urine Urobilinogen Normal, Ur Leukocyte Esterase Negative, Urine RBC 0 SEEN, Urine WBC 0 SEEN, Ur Squamous Epith Cells 0-5 SEEN, Urine Bacteria 0 SEEN, Urine Mucus 0 SEEN 10/12/22 11:19: POC Glucose 66 L 10/12/22 11:38: POC Glucose 82 Rhythm Strip Rhythm Strip: Sinus Rhythm Rate: 72 Radiology Impression Chest X-Ray 10/12/22 09:32 IMPRESSION: Vascular congestion and mild degree of CHF with blunting of both costophrenic angles posteriorly. Electronically Signed: Ketan Price MD at 10:44 EDT Reading Location ID and State: [facility] / [place] , Service support , Assessment & Plan Assessment/Plan (1) Acute exacerbation of chronic obstructive pulmonary disease: (2) Acute exacerbation of CHF (congestive heart failure): PLAN: Plan Patient is a 77-year-old lady presented with progressive shortness of breath 1. Acute hypoxia ? Secondary to combination of CHF and COPD exacerbation admitted to monitored bed for subsequent management 2. COPD with acute exacerbation admitted to a monitored bed managed systemic steroid antibiotics as well as supplemental oxygen titrated to keep saturation greater than 90 3. Acute on chronic congestive heart failure with reduced ejection fraction ? Patient last 2D echo on record obtained on 10/24/2020 demonstrated EF of 40%. Patient being managed on a monitored bed. Placed on strict input and output, daily weight, low-sodium diet as well as IV diuretics echo ordered for EF assessment 4. Coronary artery disease ? With previous CABG patient is on guideline directed medical therapy 5. Diabetes mellitus type II -patient's oral hypoglycemics held. Placed on long acting insulin, Accu-Cheks a.c. and at bedtime and covered with sliding scale insulin 6. Hypertension - Blood pressure controlled, home medications continued with dose adjustment as needed 7. Previous history of DVT ? Patient is on Coumadin INR on admission was 3.1 did continue with Coumadin daily monitoring with PT/INR ordered 8. Dyslipidemia -Patient is on statin therapy, continued at home dose 9. Depression with anxiety ? Patient is on SSRI as well as lorazepam did continue with both 10. Class III obesity with BMI of 41 ? Weight loss advised 11. DVT prophylaxis ? Patient is on warfarin with a therapeutic INR Time spent in the patient's overall evaluation,decision-making process, review of diagnostic data, adjustment of management, discussion with other providers, nursing nursing and ancillary staff involved in patient's care documentation, 75 Minutes Advance planning; did discuss with the patient and family regarding advanced directives as well as CODE STATUS. Did explain the various scenarios involved ( FULL CODE, DNR CCA, DNR CCA with no intubation, and DNR CC and what each meant) patient elected remain full code with CPR and intubation if needed. Order was placed. Time spent on discussion 18 minutes. Charges/Coding Visit Charges Inpatient E&M: 13311 Init Hosp L3 Procedures Hospitalists Procedures: 02475 Advncd Care Plan 30 Min
[2022-10-12] MEDS: MethylPREDNISolone 125 MG/2 ML Vial 60 MG IV (12:37)
--- NOTE | 2022-10-12 13:21 | ECHOCS_ITS ---
Reason For Study: CHF Procedure This was a 2D Doppler, Color Flow transthoracic echocardiogram. The study was technically difficult. Contrast injection was performed. Patient agitated and unable to hold still. Exam performed portable in patient room. Left Ventricle Mildly dilated left ventricle. The estimated ejection fraction is 40 %. Stage 2 diastolic dysfunction. Severe hypokinesis of the septum, mild to moderate hypokinesis of the other bourgeois. Right Ventricle Normal RV size. Normal systolic function. Atria The left atrium is mildly enlarged. Normal right atrium. No doppler evidence for ASD. Mitral Valve There is moderate mitral annular calcification. There is no mitral valve stenosis. Moderately severe (3+) mitral valve insufficiency. Tricuspid Valve There is no tricuspid stenosis. Pulmonary artery systolic pressure is 75 mmHg. Aortic Valve Trisinus/trileaflet aortic valve. There is no aortic stenosis. No aortic valve insufficiency. Pulmonic Valve There is no pulmonic valvular stenosis. No pulmonic valve insufficiency. Great Vessels Normal aortic root. Pericardium/Pleural No pericardial effusion. Medication Diluted definity 2ml given slow IV push to enhance endocardial definition. MMode/2D Measurements & Calculations LVIDd: 6.3 cm IVSd: 0.96 cm Ao root diam: 3.0 cm LVIDs: 5.5 cm LVPWd: 1.3 cm LA dimension: 4.5 cm RVDd: 3.5 cm FS: 11.7 % LAV(MOD-bp): 60.7 ml LVAd ap4: 37.5 cm2 SV(MOD-sp4): 34.7 ml LAV(MOD-bp) Indexed: 30.7 ml/m2 LVLd ap4: 7.9 cm LAV(MOD-sp2): 68.4 ml EDV(MOD-sp4): 145.5 ml LAV(MOD-sp4): 50.1 ml EDV(sp4-el): 150.9 ml LVAs ap4: 30.8 cm2 LVLs ap4: 7.2 cm ESV(MOD-sp4): 110.7 ml ESV(sp4-el): 111.9 ml EF(MOD-sp4): 23.9 % EF(sp4-el): 25.8 % SV(sp4-el): 39.0 ml LA A4 area: 18.1 cm2 RA A4 area: 17.4 cm2 Time Measurements MV dec time: 0.12 sec Doppler Measurements & Calculations MV E max harjit: 82.4 cm/sec Lat Peak E' Hajrit: 8.2 cm/sec Med Peak E' Harjit: 4.7 cm/sec MV A max harjit: 80.1 cm/sec E/E' lat: 10.0 E/E' med: 17.4 MV E/A: 1.0 MV V2 max: 106.7 cm/sec MV P1/2t max harjit: 107.1 cm/sec Ao V2 max: 121.1 cm/sec MV max P.6 mmHg MV P1/2t: 55.8 msec Ao max P.9 mmHg MV V2 mean: 65.6 cm/sec Ao V2 mean: 86.9 cm/sec MV mean P.0 mmHg MV dec slope: 562.2 cm/sec2 Ao mean P.3 mmHg MV V2 VTI: 28.0 cm MVA(P1/2t): 3.9 cm2 Ao V2 VTI: 30.1 cm AV (velocity ratio): 0.67 LV V1 max: 94.2 cm/sec MR max harjit: 578.5 cm/sec PA V2 max: 78.3 cm/sec LV V1 max P.6 mmHg MR max P.2 mmHg LV V1 mean P.9 mmHg MR mean harjit: 456.2 cm/sec LV V1 mean: 65.6 cm/sec MR mean P.7 mmHg LV V1 VTI: 20.2 cm MR VTI: 219.9 cm TR max harjit: 415.6 cm/sec TR max P.1 mmHg ECHO/Echo Complete W/ Contrast Interpretation Summary Mildly dilated left ventricle. The estimated ejection fraction is 40 %. Stage 2 diastolic dysfunction. The left atrium is mildly enlarged. Moderately severe (3+) mitral valve insufficiency. Ordering Physician: Saman Blair Referring Physician: Rufus Blanco Performed By: Rick Downs RCS
[2022-10-12 14:14] LABS: Troponin-I HS 31 pg/mL (3.0-54.0)
--- NOTE | 2022-10-12 14:56 | NURSING ---
po meds not on unit for pt administration
--- NOTE | 2022-10-12 15:16 | NURSING ---
meds receieved from Rx echo being completed at bedside
[2022-10-12] MEDS: Furosemide 40 MG/4 ML Vial IV ×2 (15:39→23:09)
[2022-10-12] MEDS: Azithromycin 250 MG Tablet 500 MG PO (15:39)
[2022-10-12] MEDS: LORazepam 0.5 MG Tablet PO (16:02)
--- NOTE | 2022-10-12 16:03 | NURSING ---
solumedrol iv not stocked with other meds in drawer, not in [facility]-called Rx and has not been sent at this time for pt administration
[2022-10-12] MEDS: Ferrous Sulfate 325 MG Tablet PO (16:11)
[2022-10-12 16:22] LABS: Troponin-I HS 31 pg/mL (3.0-54.0)
[2022-10-12 16:35] LABS: Bedside Glucose 147 mg/dL (74-106)
[2022-10-12 20:04] LABS: Troponin-I HS 26 pg/mL (3.0-54.0)
[2022-10-12] MEDS: Insulin Lispro 100 UNIT/ML INSULN.PEN SC (23:07)
[2022-10-12] MEDS: Insulin Glargine-YFGN 100 UNIT/ML Pen 25 UNIT SC (23:08)
[2022-10-12] MEDS: Gabapentin 100 MG Capsule PO (23:09)
[2022-10-12] MEDS: guaiFENesin 1,200 MG Tablet 1200 MG PO (23:09)
[2022-10-12] MEDS: Atorvastatin Calcium 40 MG Tablet PO (23:09)
[2022-10-12] MEDS: Carvedilol 6.25 MG Tablet PO (23:10)
[2022-10-12] MEDS: Ascorbic Acid 500 MG Tablet PO (23:11)
[2022-10-12] MEDS: Sertraline 100 MG Tablet PO (23:12)
[2022-10-12] MEDS: Methylprednisolone Sod Succ 40 MG/ML VIAL IV (23:14)
[2022-10-12 23:49] LABS: Bedside Glucose 252 mg/dL (74-106)
[2022-10-13] VITALS (11 sets, daily range): BP systolic 152–175; BP diastolic 54–83; PULSE 62–81; RESP 16–20; TEMP 36.4–37.1; O2SAT 94–99; BMI 36.7
[2022-10-13] MEDS: Insulin Lispro 100 UNIT/ML INSULN.PEN SC ×4 (06:17→22:45)
[2022-10-13] MEDS: Carvedilol 6.25 MG Tablet PO ×2 (06:17→22:45)
[2022-10-13] MEDS: Methylprednisolone Sod Succ 40 MG/ML VIAL IV ×3 (06:17→22:45)
[2022-10-13] MEDS: Furosemide 40 MG/4 ML Vial IV ×3 (06:17→22:45)
[2022-10-13 06:34] LABS: Absolute Lymphocyte Count 0.61 X10^3/uL (0.83-4.51); Absolute Neutrophil Count 5.1 X10^3/uL (2.0-7.7); Hematocrit 32.6 % (37-47); Hemoglobin 9.6 g/dL (12.0-15.0); Lymphocyte # 0.61 X10^3/ul (0.83-4.51); Mean Corp Hgb Conc 29.4 g/dL (32-36); Mean Corpuscular Hgb 28.6 pg (27.0-32.0); Mean Platelet Vol. 12.6 fl (6.2-12.0); Monocyte# 0.33 X10^3/uL; Monocyte% 5.4 % (0-10); NRBC Flagged by Analyzer 0 % (0-5); Neutrophil # 5.12 X10^3/uL (2.7-7.7); Neutrophil % 83.5 % (47-70); Platelet Count 185 K/mm3 (150-450); RBC Distribution Width CV 16.4 % (11.6-14.6); RBC Distribution Width SD 58.7 fl (35.1-43.9); Red Blood Count 3.36 M/mm3 (4.2-5.4); White Blood Count 6.1 K/mm3 (4.4-11.0)
[2022-10-13 06:51] LABS: Bedside Glucose 196 mg/dL (74-106)
[2022-10-13 07:03] LABS: Anion Gap 6 (5-15); BUN 47 mg/dL (7-18); BUN/Creat Ratio 28.5 RATIO (10-20); Calcium,Total 9.2 mg/dL (8.5-10.1); Chloride 102 mmol/L (98-107); Creatinine, Serum 1.65 mg/dL (0.55-1.02); EST Glomerular Filtration Rate 32 mL/min (>60); Est Glom Filt Rate - Afr Amer 39 mL/min (>60); Estimated Creatinine Clearance 25.29 ml/min; Glucose 221 mg/dL (74-106); Magnesium 2.4 mg/dL (1.6-2.6); Phosphorus 3.6 mg/dL (2.5-4.9); Potassium 4.8 mmol/L (3.5-5.1); Sodium Level 142 mmol/L (136-145)
[2022-10-13] MEDS: Albuterol 2.5 MG/3 ML VIAL.NEB. INHALATION ×2 (07:10→11:13)
[2022-10-13] MEDS: Ipratropium/Albuterol Sulfate 3 ML AMPUL.NEB INHALATION ×4 (07:10→22:47)
[2022-10-13 07:14] LABS: International Normalized Ratio 2.6; Prothrombin Time (Protime)PT. 28.2 SECONDS (11.7-14.9)
--- NOTE | 2022-10-13 07:37 | PCM.PN.HOSP ---
Reason for Visit Reason for Visit: Diagnoses Heart failure, unspecified (10/12/22) Chronic obstructive pulmonary disease with (acute) exacerbation (10/12/22) Subjective Subjective Patient is a 77-year-old lady admitted with progressive shortness of breath currently being managed as a case of COPD with acute exacerbation as well as CHF exacerbation Objective Data Objective Data Vital Signs: Vital Signs Temp Pulse Resp BP Pulse Ox O2 Del Method O2 Flow Rate 97.6 F L 62 20 H 175/82 H 94 Nasal Cannula 3 10/13/22 03:46 10/13/22 03:46 10/13/22 03:46 10/13/22 03:46 10/13/22 03:46 10/13/22 04:00 10/13/22 04:00 Oxygen Flow Rate (L/min) 3 Oxygen Delivery Method Nasal Cannula Weight: 100 kg Body Mass Index (BMI) 36.7 Intake & Output: Intake and Output for Last 24 Hours 10/11/22 10/12/22 10/13/22 23:59 23:59 23:59 Intake Total 200 / 500 400 / 400 Output Total 1200 / 1900 1400 / 1400 Balance -1000 / -1400 -1000 / -1000 Lab / Micro Data Result Diagrams: 10/13/22 06:15 10/13/22 06:15 Labs: Laboratory Results - last 24 hr 10/12/22 09:56: WBC 9.1, RBC 3.43 L, Hgb 9.9 L, Hct 34.1 L, MCV 99.4 H, MCH 28.9, MCHC 29.0 L, RDW Std Deviation 61.4 H, RDW Coeff of [place] 16.6 H, Plt Count 226, MPV 12.3 H, Immature Gran % (Auto) 0.600, Neut % (Auto) 66.2, Lymph % (Auto) 15.6 L, [place] % (Auto) 13.7 H, Eos % (Auto) 3.2, Baso % (Auto) 0.7, Absolute Neuts (auto) 6.0, Absolute Lymphs (auto) 1.41, Nucleated RBC % 0 10/12/22 09:56: PT 32.8 H, INR 3.1 10/12/22 09:56: Sodium 143, Potassium 4.8, Chloride 107, Carbon Dioxide 33.0 H, Anion Gap 3 L, BUN 36 H, Creatinine 1.74 H, Estim Creat Clear Calc 20.11, Est GFR (MDRD) Af Amer 36 L, Est GFR (MDRD) Non-Af 30 L, BUN/Creatinine Ratio 20.7 H, Glucose 90, Calcium 9.5, Troponin I High Sens 36 10/12/22 09:56: B-Natriuretic Peptide 1379.5 H 10/12/22 10:14: Urine Color Yellow, Urine Clarity Clear, Urine pH 6.0, Ur Specific [place] 1.015, Urine Protein Negative, Urine Glucose (UA) Normal, Urine Ketones Negative, Urine Occult Blood 25 H, Urine Nitrite Negative, Urine Bilirubin Negative, Urine Urobilinogen Normal, Ur Leukocyte Esterase Negative, Urine RBC 0 SEEN, Urine WBC 0 SEEN, Ur Squamous Epith Cells 0-5 SEEN, Urine Bacteria 0 SEEN, Urine Mucus 0 SEEN 10/12/22 11:19: POC Glucose 66 L 10/12/22 11:38: POC Glucose 82 10/12/22 11:40: Troponin I High Sens 31 10/12/22 15:42: Troponin I High Sens 31 10/12/22 16:06: POC Glucose 147 H 10/12/22 19:28: Troponin I High Sens 26 10/12/22 23:05: POC Glucose 252 H 10/13/22 06:13: POC Glucose 196 H 10/13/22 06:15: WBC 6.1, RBC 3.36 L, Hgb 9.6 L, Hct 32.6 L, MCV 97.0, MCH 28.6, MCHC 29.4 L, RDW Std Deviation 58.7 H, RDW Coeff of [place] 16.4 H, Plt Count 185, MPV 12.6 H, Immature Gran % (Auto) 1.100 H, Neut % (Auto) 83.5 H, Lymph % (Auto) 10.0 L, [place] % (Auto) 5.4, Eos % (Auto) 0.0, Baso % (Auto) 0.0, Absolute Neuts (auto) 5.1, Absolute Lymphs (auto) 0.61 L, Nucleated RBC % 0 10/13/22 06:15: PT 28.2 H, INR 2.6 10/13/22 06:15: Sodium 142, Potassium 4.8, Chloride 102, Carbon Dioxide 34.0 H, Anion Gap 6, BUN 47 H, Creatinine 1.65 H, Estim Creat Clear Calc 25.29, Est GFR (MDRD) Af Amer 39 L, Est GFR (MDRD) Non-Af 32 L, BUN/Creatinine Ratio 28.5 H, Glucose 221 H, Calcium 9.2, Phosphorus 3.6, Magnesium 2.4 Micro: Microbiology 10/12/22 14:50 Mucosa - Nasopharyngeal Respiratory Panel (PCR) - Final Radiography Diagnostic Testing: Radiology Impression Chest X-Ray 10/12/22 09:32 IMPRESSION: Vascular congestion and mild degree of CHF with blunting of both costophrenic angles posteriorly. Electronically Signed: Ketan Price MD at 10:44 EDT , Echocardiogram 10/12/22 13:21 Interpretation Summary Mildly dilated left ventricle. The estimated ejection fraction is 40 %. Stage 2 diastolic dysfunction. The left atrium is mildly enlarged. Moderately severe (3+) mitral valve insufficiency. Ordering Physician: Saman Blair Referring Physician: Rufus Blanco Performed By: Rick Downs RCS Rhythm Strip Rhythm Strip: Sinus Rhythm Rate: 72 Physical Exam Narrative GENERAL: cooperative but dyspneic at rest HEENT: Atraumatic; normocephalic EYES; Anicteric, Normal Conjunctiva NECK; supple, normal thyroid, RESPIRATORY: Diminished to auscultation, with some wheezes CARDIOVASCULAR: Regular S1 S2, GI: soft, normoactive bowel sounds, : No Renal angle tenderness; EXTREMITIES: No edema, no clubbing, MUSCULOSKELETAL: no muscle wasting NEURO: Awake; no lateralizing signs. SKIN: No Rash PSYCH; Flat affect Assessment & Plan Assessment/Plan (1) Acute exacerbation of chronic obstructive pulmonary disease: (2) Acute exacerbation of CHF (congestive heart failure): PLAN: Plan Patient is a 77-year-old lady presented with progressive shortness of breath 1. Acute hypoxia ? Secondary to combination of CHF and COPD exacerbation admitted to monitored bed for subsequent management 2. COPD with acute exacerbation -admitted to a monitored bed managed systemic steroid antibiotics as well as supplemental oxygen titrated to keep saturation greater than 90 3. Acute on chronic congestive heart failure with reduced ejection fraction ? Patient last 2D echo on record obtained on 10/24/2020 demonstrated EF of 40%. Patient being managed on a monitored bed. Placed on strict input and output, daily weight, low-sodium diet as well as IV diuretics echo ordered for EF assessment -Mildly dilated left ventricle. The estimated ejection fraction is 40 %. Stage 2 diastolic dysfunction. The left atrium is mildly enlarged. Moderately severe (3+) mitral valve insufficiency. ? Patient still remains dyspneic at rest 4. Coronary artery disease ? With previous CABG patient is on guideline directed medical therapy 5. Diabetes mellitus type II -patient's oral hypoglycemics held. Placed on long acting insulin, Accu-Cheks a.c. and at bedtime and covered with sliding scale insulin 6. Hypertension - Blood pressure controlled, home medications continued with dose adjustment as needed 7. Previous history of DVT ? Patient is on Coumadin INR on admission was 3.1 did continue with Coumadin daily monitoring with PT/INR ordered 8. Dyslipidemia -Patient is on statin therapy, continued at home dose 9. Depression with anxiety ? Patient is on SSRI as well as lorazepam did continue with both 10. Class III obesity with BMI of 41 ? Weight loss advised 11. DVT prophylaxis ? Patient is on warfarin with a therapeutic INR 12. Anemia - Secondary to chronic disorder monitoring H&H and transfuse if patient becomes symptomatic or hemoglobin falls below 7 Time spent in the patient's overall evaluation,decision-making process, review of diagnostic data, adjustment of management, discussion with other providers, nursing nursing and ancillary staff involved in patient's care documentation, 50 Minutes Charges/Coding Visit Charges Inpatient E&M: 06987 [facility] Hosp L3
[2022-10-13] MEDS: Ferrous Sulfate 325 MG Tablet PO ×2 (07:56→17:02)
[2022-10-13] MEDS: Aspirin E.C. 81 MG Tablet PO (07:57)
[2022-10-13] MEDS: Cyanocobalamin 500 MCG Tablet PO (10:58)
[2022-10-13] MEDS: Loratadine 10 MG Tablet PO (10:58)
[2022-10-13] MEDS: Cholecalciferol (VIT D3) 25 MCG TABLET (1,000 UNITS) PO (10:58)
[2022-10-13] MEDS: Azithromycin 250 MG Tablet 500 MG PO (10:58)
[2022-10-13] MEDS: Famotidine 20 MG Tablet PO (10:58)
[2022-10-13] MEDS: Ascorbic Acid 500 MG Tablet PO ×2 (10:58→22:45)
[2022-10-13] MEDS: Montelukast 10 MG Tablet PO (10:58)
[2022-10-13] MEDS: Insulin Glargine-YFGN 100 UNIT/ML Pen 32 UNIT SC (10:58)
[2022-10-13] MEDS: guaiFENesin 1,200 MG Tablet 1200 MG PO (11:08)
[2022-10-13] MEDS: Gabapentin 100 MG Capsule PO ×2 (11:08→22:45)
[2022-10-13] MEDS: Sertraline 50 MG Tablet 25 MG PO (11:08)
[2022-10-13 12:13] LABS: Bedside Glucose 306 mg/dL (74-106)
--- NOTE | 2022-10-13 13:24 | CASEMGMT ---
Social Work SW met with pt and introduced self and role of SW. Pt has lived at [facility] since June and is a nursing home resident. Pt expressing frustration with care at [facility] and does not want to return. A list of SNF providers including quality and resource use data and consistent with the patient?s preferred geographic region, medical needs, and insurance network were provided from the [employer] Guide. Pt preferred provider is [facility]. rebeca Caro pastoral assistant spoke with pt and no bed available. LINH updated pt and suggested pt choose another facility on list. Pt stating her only choice is [facility] and she would like her name placed on [facility] waiting list and will return to [facility] in the mean time. LINH provided pt with written information and phone number for [facility]. rebeca Caro pastoral assistant requested [facility] put pt on waitlist and they confirmed and will reach out to pt when a bed is available. Vania to update [facility] on pt plan to return. Plan: [facility], when medically ready SOFIA Berrios
--- NOTE | 2022-10-13 13:40 | CASEMGMT ---
Discharge Planning Patient resides at [facility]. Return referral sent via [facility]. Vania Ozuna, Discharge Planning Asst.
[2022-10-13] MEDS: 0.9% Saline Lock 10 ML Syringe IV (14:12)
[2022-10-13 16:40] LABS: Bedside Glucose 242 mg/dL (74-106)
[2022-10-13] MEDS: Jantoven 2 MG Tablet PO (17:01)
[2022-10-13] MEDS: Atorvastatin Calcium 40 MG Tablet PO (22:45)
[2022-10-13] MEDS: Insulin Glargine-YFGN 100 UNIT/ML Pen 25 UNIT SC (22:46)
[2022-10-13] MEDS: Sertraline 100 MG Tablet PO (22:47)
[2022-10-13 23:19] LABS: Bedside Glucose 277 mg/dL (74-106)
[2022-10-14] VITALS (13 sets, daily range): BP systolic 144–165; BP diastolic 52–75; PULSE 61–88; RESP 18–20; TEMP 36.4–36.9; O2SAT 94–97; BMI 36.7
[2022-10-14] MEDS: Ipratropium/Albuterol Sulfate 3 ML AMPUL.NEB INHALATION ×6 (02:58→23:55)
[2022-10-14] MEDS: Methylprednisolone Sod Succ 40 MG/ML VIAL IV ×3 (05:28→21:50)
[2022-10-14] MEDS: Furosemide 40 MG/4 ML Vial IV (05:28)
[2022-10-14 07:13] LABS: Absolute Lymphocyte Count 0.51 X10^3/uL (0.83-4.51); Absolute Neutrophil Count 6.1 X10^3/uL (2.0-7.7); Basophil# 0.01 X10^3/uL; Basophil% 0.1 % (0-1); Hematocrit 32.8 % (37-47); Hemoglobin 9.8 g/dL (12.0-15.0); Lymphocyte # 0.51 X10^3/ul (0.83-4.51); Lymphocyte % 7.1 % (19-41); Mean Corp Hgb Conc 29.9 g/dL (32-36); Mean Corpuscular Hgb 28.8 pg (27.0-32.0); Mean Corpuscular Volume 96.5 fL (81-99); Mean Platelet Vol. 12.3 fl (6.2-12.0); Monocyte# 0.44 X10^3/uL; Monocyte% 6.2 % (0-10); NRBC Flagged by Analyzer 0 % (0-5); Neutrophil # 6.14 X10^3/uL (2.7-7.7); Neutrophil % 85.9 % (47-70); POSITIVE DIFFERENTIAL YES; Platelet Count 220 K/mm3 (150-450); RBC Distribution Width CV 16.5 % (11.6-14.6); RBC Distribution Width SD 58.6 fl (35.1-43.9); White Blood Count 7.2 K/mm3 (4.4-11.0)
--- NOTE | 2022-10-14 07:22 | PCM.PN.HOSP ---
Reason for Visit Reason for Visit: Diagnoses Heart failure, unspecified (10/12/22) Chronic obstructive pulmonary disease with (acute) exacerbation (10/12/22) Subjective Subjective Patient seen appears less dyspneic at rest she however maintains her breathing is labored. Objective Data Objective Data Vital Signs: Vital Signs Temp Pulse Resp BP Pulse Ox O2 Del Method O2 Flow Rate 97.6 F L 61 20 H 145/68 H 95 Nasal Cannula 2 10/14/22 04:37 10/14/22 04:37 10/14/22 04:37 10/14/22 04:37 10/14/22 04:37 10/14/22 04:37 10/14/22 04:37 Oxygen Flow Rate (L/min) 2 Oxygen Delivery Method Nasal Cannula Weight: 100.1 kg Body Mass Index (BMI) 36.7 Intake & Output: Intake and Output for Last 24 Hours 10/12/22 10/13/22 10/14/22 23:59 23:59 23:59 Intake Total 200 / 500 1400 / 1550 200 / 200 Output Total 1200 / 1900 2500 / 2900 1100 / 1100 Balance -1000 / -1400 -1100 / -1350 -900 / -900 Lab / Micro Data Result Diagrams: 10/14/22 06:55 10/14/22 06:55 Labs: Laboratory Results - last 24 hr 10/13/22 11:51: POC Glucose 306 H 10/13/22 16:22: POC Glucose 242 H 10/13/22 22:35: POC Glucose 277 H Micro: Microbiology 10/12/22 14:50 Mucosa - Nasopharyngeal Respiratory Panel (PCR) - Final Rhythm Strip Rhythm Strip: Sinus Rhythm Rate: 72 Physical Exam Narrative GENERAL: cooperative HEENT: Atraumatic; normocephalic EYES; Anicteric, Normal Conjunctiva NECK; supple, normal thyroid, RESPIRATORY: Diminished to auscultation, CARDIOVASCULAR: Regular S1 S2, GI: soft, normoactive bowel sounds, : No Renal angle tenderness; EXTREMITIES: No edema, no clubbing, MUSCULOSKELETAL: no muscle wasting NEURO: Awake; no lateralizing signs. SKIN: No Rash PSYCH; Flat affect Assessment & Plan Assessment/Plan (1) Acute exacerbation of chronic obstructive pulmonary disease: (2) Acute exacerbation of CHF (congestive heart failure): PLAN: Plan Patient is a 77-year-old lady presented with progressive shortness of breath 1. Acute hypoxia ? Secondary to combination of CHF and COPD exacerbation admitted to monitored bed for subsequent management 2. COPD with acute exacerbation -admitted to a monitored bed managed systemic steroid antibiotics as well as supplemental oxygen titrated to keep saturation greater than 90 3. Acute on chronic congestive heart failure with reduced ejection fraction ? Patient last 2D echo on record obtained on 10/24/2020 demonstrated EF of 40%. Patient being managed on a monitored bed. Placed on strict input and output, daily weight, low-sodium diet as well as IV diuretics echo ordered for EF assessment. Echo did show-Mildly dilated left ventricle.The estimated ejection fraction is 40 %. Stage 2 diastolic dysfunction. The left atrium is mildly enlarged. Moderately severe (3+) mitral valve insufficiency. ? 10/14/2022 adjusted patient diuretic therapy switching Lasix from IV to p.o. 4. Coronary artery disease ? With previous CABG patient is on guideline directed medical therapy 5. Diabetes mellitus type II -patient's oral hypoglycemics held. Placed on long acting insulin, Accu-Cheks a.c. and at bedtime and covered with sliding scale insulin 6. Hypertension - Blood pressure controlled, home medications continued with dose adjustment as needed 7. Previous history of DVT ? Patient is on Coumadin INR on admission was 3.1 did continue with Coumadin daily monitoring with PT/INR ordered 8. Dyslipidemia -Patient is on statin therapy, continued at home dose 9. Depression with anxiety ? Patient is on SSRI as well as lorazepam did continue with both 10. Class III obesity with BMI of 41 ? Weight loss advised 11. DVT prophylaxis ? Patient is on warfarin with a therapeutic INR 12. Anemia - Secondary to chronic disorder monitoring H&H and transfuse if patient becomes symptomatic or hemoglobin falls below 7 Time spent in the patient's overall evaluation,decision-making process, review of diagnostic data, adjustment of management, discussion with other providers, nursing nursing and ancillary staff involved in patient's care documentation, 35 Minutes Charges/Coding Visit Charges Inpatient E&M: 45915 Subs Hosp L2
[2022-10-14 07:45] LABS: Anion Gap 3 (5-15); BUN 68 mg/dL (7-18); BUN/Creat Ratio 39.3 RATIO (10-20); Calcium,Total 9.3 mg/dL (8.5-10.1); Chloride 98 mmol/L (98-107); Creatinine, Serum 1.73 mg/dL (0.55-1.02); EST Glomerular Filtration Rate 30 mL/min (>60); Est Glom Filt Rate - Afr Amer 37 mL/min (>60); Estimated Creatinine Clearance 24.12 ml/min; Glucose 214 mg/dL (74-106); Potassium 4.9 mmol/L (3.5-5.1); Sodium Level 138 mmol/L (136-145)
[2022-10-14] MEDS: Aspirin E.C. 81 MG Tablet PO (07:49)
[2022-10-14] MEDS: Insulin Lispro 100 UNIT/ML INSULN.PEN SC ×4 (07:49→21:51)
[2022-10-14] MEDS: Ferrous Sulfate 325 MG Tablet PO ×2 (07:49→16:22)
[2022-10-14 07:50] LABS: Differential Indicated SCAN CRITERIA MET
[2022-10-14 07:58] LABS: Anisocytosis 2+; Hypochromasia 1+
[2022-10-14] MEDS: Famotidine 20 MG Tablet PO (08:03)
[2022-10-14] MEDS: Montelukast 10 MG Tablet PO (08:04)
[2022-10-14] MEDS: Carvedilol 6.25 MG Tablet PO ×2 (08:04→21:51)
[2022-10-14] MEDS: Loratadine 10 MG Tablet PO (08:04)
[2022-10-14] MEDS: guaiFENesin 1,200 MG Tablet 1200 MG PO ×2 (08:04→21:56)
[2022-10-14] MEDS: Cyanocobalamin 500 MCG Tablet PO (08:04)
[2022-10-14] MEDS: Sertraline 50 MG Tablet 25 MG PO (08:04)
[2022-10-14] MEDS: Ascorbic Acid 500 MG Tablet PO ×2 (08:04→21:51)
[2022-10-14] MEDS: Cholecalciferol (VIT D3) 25 MCG TABLET (1,000 UNITS) PO (08:04)
[2022-10-14] MEDS: Azithromycin 250 MG Tablet 500 MG PO (08:04)
[2022-10-14 08:11] LABS: Bedside Glucose 188 mg/dL (74-106)
[2022-10-14] MEDS: Menthol/Lanolin/Calamine/Znox 113 GM Tube 1 APPLIC TOPICAL ×2 (10:52→21:55)
[2022-10-14] MEDS: Furosemide 40 MG Tablet PO ×2 (10:53→17:35)
[2022-10-14] MEDS: Gabapentin 100 MG Capsule PO ×2 (10:53→21:56)
[2022-10-14] MEDS: Insulin Glargine-YFGN 100 UNIT/ML Pen 32 UNIT SC (10:54)
[2022-10-14 11:03] LABS: Bedside Glucose 315 mg/dL (74-106)
[2022-10-14] MEDS: 0.9% Saline Lock 10 ML Syringe IV (13:59)
[2022-10-14] MEDS: Jantoven 2 MG Tablet PO (16:22)
[2022-10-14 16:48] LABS: Bedside Glucose 199 mg/dL (74-106)
[2022-10-14] MEDS: Atorvastatin Calcium 40 MG Tablet PO (21:51)
[2022-10-14] MEDS: Sertraline 100 MG Tablet PO (21:51)
[2022-10-14] MEDS: Insulin Glargine-YFGN 100 UNIT/ML Pen 25 UNIT SC (21:54)
[2022-10-14 23:01] LABS: Bedside Glucose 257 mg/dL (74-106)
[2022-10-15] MEDS: Albuterol 2.5 MG/3 ML VIAL.NEB. INHALATION (03:57)
[2022-10-15 03:58] VITALS: PULSE 71; RESP 18
[2022-10-15 05:31] VITALS: BP 167/65; PULSE 64; RESP 18; TEMP 36.8; O2SAT 98
[2022-10-15] MEDS: Methylprednisolone Sod Succ 40 MG/ML VIAL IV (05:58)
[2022-10-15 06:00] VITALS: BMI 35.6
[2022-10-15] MEDS: Insulin Lispro 100 UNIT/ML INSULN.PEN SC (06:02)
[2022-10-15 06:53] VITALS: BP 162/75
[2022-10-15 07:03] LABS: Bedside Glucose 213 mg/dL (74-106)
[2022-10-15 07:29] LABS: Anion Gap 5 (5-15); BUN 76 mg/dL (7-18); BUN/Creat Ratio 42.9 RATIO (10-20); Calcium,Total 9.4 mg/dL (8.5-10.1); Chloride 98 mmol/L (98-107); Creatinine, Serum 1.77 mg/dL (0.55-1.02); EST Glomerular Filtration Rate 30 mL/min (>60); Est Glom Filt Rate - Afr Amer 36 mL/min (>60); Estimated Creatinine Clearance 23.57 ml/min; Glucose 213 mg/dL (74-106); Potassium 4.6 mmol/L (3.5-5.1); Sodium Level 139 mmol/L (136-145)
--- NOTE | 2022-10-15 07:29 | PCM.PN.HOSP ---
Reason for Visit Reason for Visit: Diagnoses Heart failure, unspecified (10/12/22) Chronic obstructive pulmonary disease with (acute) exacerbation (10/12/22) Subjective Subjective Seen breathing improved plan for patient to assess for possible discharge Objective Data Objective Data Vital Signs: Vital Signs Temp Pulse Resp BP Pulse Ox O2 Del Method O2 Flow Rate 98.2 F 64 18 162/75 H 98 Nasal Cannula 2 10/15/22 05:31 10/15/22 05:31 10/15/22 05:31 10/15/22 06:53 10/15/22 05:31 10/15/22 05:46 10/15/22 05:46 Oxygen Flow Rate (L/min) 2 Oxygen Delivery Method Nasal Cannula Weight: 97.1 kg Body Mass Index (BMI) 35.6 Intake & Output: Intake and Output for Last 24 Hours 10/13/22 10/14/22 10/15/22 23:59 23:59 23:59 Intake Total 1400 / 1550 200 / 890 790 / 790 Output Total 2500 / 2900 2300 / 3000 1400 / 1400 Balance -1100 / -1350 -2100 / -2110 -610 / -610 Lab / Micro Data Result Diagrams: 10/14/22 06:55 10/15/22 05:51 Labs: Laboratory Results - last 24 hr 10/14/22 06:55: WBC 7.2, RBC 3.40 L, Hgb 9.8 L, Hct 32.8 L, MCV 96.5, MCH 28.8, MCHC 29.9 L, RDW Std Deviation 58.6 H, RDW Coeff of [place] 16.5 H, Plt Count 220, MPV 12.3 H, Immature Gran % (Auto) 0.700, Neut % (Auto) 85.9 H, Lymph % (Auto) 7.1 L, [place] % (Auto) 6.2, Eos % (Auto) 0.0, Baso % (Auto) 0.1, Absolute Neuts (auto) 6.1, Absolute Lymphs (auto) 0.51 L, Nucleated RBC % 0, Hypochromasia 1+, Anisocytosis 2+ 10/14/22 06:55: Sodium 138, Potassium 4.9, Chloride 98, Carbon Dioxide 37.0 H, Anion Gap 3 L, BUN 68 H, Creatinine 1.73 H, Estim Creat Clear Calc 24.12, Est GFR (MDRD) Af Amer 37 L, Est GFR (MDRD) Non-Af 30 L, BUN/Creatinine Ratio 39.3 H, Glucose 214 H, Calcium 9.3 10/14/22 07:47: POC Glucose 188 H 10/14/22 10:42: POC Glucose 315 H 10/14/22 16:20: POC Glucose 199 H 10/14/22 21:46: POC Glucose 257 H 10/15/22 05:56: POC Glucose 213 H Micro: Microbiology 10/12/22 14:50 Mucosa - Nasopharyngeal Respiratory Panel (PCR) - Final Rhythm Strip Rhythm Strip: Sinus Rhythm Rate: 72 Physical Exam Narrative GENERAL: cooperative HEENT: Atraumatic; normocephalic EYES; Anicteric, Normal Conjunctiva NECK; supple, normal thyroid, RESPIRATORY: Diminished to auscultation, CARDIOVASCULAR: Regular S1 S2, GI: soft, normoactive bowel sounds, : No Renal angle tenderness; EXTREMITIES: No edema, no clubbing, MUSCULOSKELETAL: no muscle wasting NEURO: Awake; no lateralizing signs. SKIN: No Rash PSYCH; Flat affect Assessment & Plan Assessment/Plan (1) Acute exacerbation of chronic obstructive pulmonary disease: (2) Acute exacerbation of CHF (congestive heart failure): PLAN: Plan Patient is a 77-year-old lady presented with progressive shortness of breath 1. Acute hypoxia ? Secondary to combination of CHF and COPD exacerbation admitted to monitored bed for subsequent management 2. COPD with acute exacerbation -admitted to a monitored bed managed systemic steroid antibiotics as well as supplemental oxygen titrated to keep saturation greater than 90 3. Acute on chronic congestive heart failure with reduced ejection fraction ? Patient last 2D echo on record obtained on 10/24/2020 demonstrated EF of 40%. Patient being managed on a monitored bed. Placed on strict input and output, daily weight, low-sodium diet as well as IV diuretics echo ordered for EF assessment. Echo did show-Mildly dilated left ventricle.The estimated ejection fraction is 40 %. Stage 2 diastolic dysfunction. The left atrium is mildly enlarged. Moderately severe (3+) mitral valve insufficiency. ? 10/14/2022 adjusted patient diuretic therapy switching Lasix from IV to p.o. 4. Coronary artery disease ? With previous CABG patient is on guideline directed medical therapy 5. Diabetes mellitus type II -patient's oral hypoglycemics held. Placed on long acting insulin, Accu-Cheks a.c. and at bedtime and covered with sliding scale insulin 6. Hypertension - Blood pressure controlled, home medications continued with dose adjustment as needed 7. Previous history of DVT ? Patient is on Coumadin INR on admission was 3.1 did continue with Coumadin daily monitoring with PT/INR ordered 8. Dyslipidemia -Patient is on statin therapy, continued at home dose 9. Depression with anxiety ? Patient is on SSRI as well as lorazepam did continue with both 10. Class III obesity with BMI of 41 ? Weight loss advised 11. DVT prophylaxis ? Patient is on warfarin with a therapeutic INR 12. Anemia - Secondary to chronic disorder monitoring H&H and transfuse if patient becomes symptomatic or hemoglobin falls below 7 Time spent in the patient's overall evaluation,decision-making process, review of diagnostic data, adjustment of management, discussion with other providers, nursing nursing and ancillary staff involved in patient's care documentation, 35 Minutes Charges/Coding Visit Charges Inpatient E&M: 57465 Subs Hosp L2
[2022-10-15 07:42] VITALS: O2SAT 95
--- NOTE | 2022-10-15 07:54 | PCM.TXEXTCAR ---
Diet Diet Order/Speech Therapy: 10/12/22 13:21 Diet: Cardiac: Calorie-Controlled Food consistency:: Regular Liquid Consistency:: Regular/Thin How many daily calories?: 1800 calorie Routine Orders/Code Status Code Status: Full Code Therapies Physical Therapy: Eval and Treat Occupational Therapy: Eval and Treat Problem/Diagnosis (1) Acute exacerbation of chronic obstructive pulmonary disease: Status: Chronic Code(s): J44.1 - Chronic obstructive pulmonary disease with (acute) exacerbation (2) Acute exacerbation of CHF (congestive heart failure): Status: Chronic Code(s): I50.9 - Heart failure, unspecified Plan Patient is a 77-year-old lady presented with progressive shortness of breath 1. Acute hypoxia ? Secondary to combination of CHF and COPD exacerbation admitted to monitored bed for subsequent management 2. COPD with acute exacerbation -admitted to a monitored bed managed systemic steroid antibiotics as well as supplemental oxygen titrated to keep saturation greater than 90 3. Acute on chronic congestive heart failure with reduced ejection fraction ? Patient last 2D echo on record obtained on 10/24/2020 demonstrated EF of 40%. Patient being managed on a monitored bed. Placed on strict input and output, daily weight, low-sodium diet as well as IV diuretics echo ordered for EF assessment. Echo did show-Mildly dilated left ventricle.The estimated ejection fraction is 40 %. Stage 2 diastolic dysfunction. The left atrium is mildly enlarged. Moderately severe (3+) mitral valve insufficiency. ? 10/14/2022 adjusted patient diuretic therapy switching Lasix from IV to p.o. 4. Coronary artery disease ? With previous CABG patient is on guideline directed medical therapy 5. Diabetes mellitus type II -patient's oral hypoglycemics held. Placed on long acting insulin, Accu-Cheks a.c. and at bedtime and covered with sliding scale insulin 6. Hypertension - Blood pressure controlled, home medications continued with dose adjustment as needed 7. Previous history of DVT ? Patient is on Coumadin INR on admission was 3.1 did continue with Coumadin daily monitoring with PT/INR ordered 8. Dyslipidemia -Patient is on statin therapy, continued at home dose 9. Depression with anxiety ? Patient is on SSRI as well as lorazepam did continue with both 10. Class III obesity with BMI of 41 ? Weight loss advised 11. DVT prophylaxis ? Patient is on warfarin with a therapeutic INR 12. Anemia - Secondary to chronic disorder monitoring H&H and transfuse if patient becomes symptomatic or hemoglobin falls below 7 Time spent in the patient's overall evaluation,decision-making process, review of diagnostic data, adjustment of management, discussion with other providers, nursing nursing and ancillary staff involved in patient's care documentation, 35 Minutes Allergies/Procedures Done in Hospital Allergies Penicillins Allergy (Verified 10/12/22 13:56) Angioedema rosiglitazone maleate [From Avandia] Allergy (Verified 10/12/22 13:56) hyperglycemia adhesive tape Adverse Reaction (Verified 10/12/22 13:56) Rash PAPER TAPE cephalexin [From Keflex] Adverse Reaction (Verified 10/12/22 13:56) Diarrhea doxycycline Adverse Reaction (Verified 10/12/22 13:56) Diarrhea prednisone Adverse Reaction (Verified 10/12/22 13:56) hyperglycemia HYPERGLYCEMIA Sulfa (Sulfonamide Antibiotics) Adverse Reaction (Verified 10/12/22 13:56) Itching Type of Care/Length of Stay Estimated LOS: More Than 30 Days Type of Care Needed: Intermediate Rehab Potential: Fair Prognosis: Fair Additional Orders/Day of Discharge Day of Discharge: 10/15/22 Dietary and Speech Recommendations Dietitian Recommendations/Changes: continue cardiac, 1800 calorie controlled diet as ordered; consider 1500mL fluid restriction as indicated Discharge Plan Admission Admit Date/Time: 10/12/22 11:38 Attending Provider: Saman Blair Primary Care Provider: Rufus Blanco Discharge Orders/Prescriptions Prescriptions: New furosemide 40 mg Tablet 40 mg PO BIDLX Qty: 0 0RF azithromycin 250 mg Tablet 500 mg PO Q24 Qty: 0 0RF melatonin 3 mg Tablet 3 mg PO QHS PRN PRN (Reason: Insomnia) Qty: 0 0RF nitroglycerin 0.4 mg Tablet, Sublingual 0.4 mg sublingual Q5M PRN (Reason: Cardiac/Chest Pain) Qty: 0 0RF Mucus Relief ER 1,200 mg Tablet Extended Release 12hr 1,200 mg PO BID Qty: 10 0RF menthol-zinc oxide [Calmoseptine] 0.44-20.6 % Ointment 1 applic topical BID Qty: 0 0RF Protocol: *Topical Application Instructions APPLICATION INSTRUCTIONS: groin prednisone 20 mg tablet 20 mg PO BID Qty: 10 0RF Continued (DME) pen needle, diabetic [BD Ultra-Fine Kaylyn Pen Needle] 32 gauge x 5/32 needle See Rx Instructions .ROUTE .MEDSUPPLY Qty: 100 5RF Rx Instructions: 4 times daily (DME) FreeStyle Sharita 2 [place] Misc See Rx Instructions .ROUTE .MEDSUPPLY Qty: 1 0RF Rx Instructions: As directed (DME) FreeStyle Sharita 2 Sensor Kit See Rx Instructions .ROUTE .MEDSUPPLY Qty: 2 12RF Rx Instructions: As directed acetaminophen 325 mg tablet 650 mg PO Q4H PRN (Reason: Pain) aspirin [Adult Low Dose Aspirin] 81 mg tablet,delayed release (DR/EC) 81 mg PO DAILY atorvastatin 40 mg tablet 40 mg PO QHS insulin lispro 100 unit/mL insulin pen See Protocol [facility] Protocol: 6. Sliding Scale Insulin Custom Condition: mg/dl range Dose/Route: Number of Units Condition: 151-200 Dose/Route: 2 Condition: 201-250 Dose/Route: 4 Condition: 251-300 Dose/Route: 6 Condition: 301-350 Dose/Route: 8 Condition: 351-400 Dose/Route: 10 Condition: >401 Dose/Route: 12 Instruction: CALL MD Protocol Text: Custom Sliding Scale Rx Instructions: sliding scale subcut before meals; fenofibrate 160 mg tablet 160 mg PO DAILY Senna Plus 8.6-50 mg capsule 1 tab-cap PO BID PRN (Reason: Constipation) gabapentin 100 mg capsule 100 mg PO BID albuterol sulfate 2.5 mg /3 mL (0.083 %) solution for nebulization 2.5 mg inhalation Q4H PRN (Reason: shortness of breath or wheezing) Enema 19-7 gram/118 mL enema 118 ml ME ONCE polyethylene glycol 3350 [Miralax] 17 gram/dose powder 4 g PO DAILY PRN (Reason: Constipation) warfarin 2 mg tablet 2 mg PO SUMOTUTHFRSA warfarin 3 mg tablet 3 mg PO WE ferrous sulfate 325 mg (65 mg iron) tablet 325 mg PO BID insulin glargine [Lantus U-100 Insulin] 100 unit/mL solution 32 unit subcut QAM montelukast 10 mg tablet 10 mg PO DAILY ascorbic acid (vitamin C) 500 mg tablet 500 mg PO BID famotidine 20 MG tablet 20 mg PO BID Lantus Solostar U-100 Insulin 100 unit/mL (3 mL) insulin pen 25 unit SC QHS carvedilol 6.25 mg Tablet 6.25 mg PO BID magnesium hydroxide [Milk of Magnesia] 400 mg/5 mL Suspension 400 mg PO DAILY PRN (Reason: Constipation) bisacodyl [Dulcolax (bisacodyl)] 10 mg Suppository 10 mg ME DAILY PRN (Reason: Constipation) cetirizine [Zyrtec] 10 mg Tablet 10 mg PO DAILY sertraline [Zoloft] 100 mg Tablet 100 mg PO QHS cyanocobalamin (vitamin B-12) [Vitamin B-12] 500 mcg Tablet 500 mcg PO DAILY sertraline [Zoloft] 25 mg Tablet 25 mg PO DAILY cholecalciferol (vitamin D3) 25 mcg (1,000 unit) Tablet 25 mcg PO DAILY hydroxyzine pamoate [Vistaril] 25 mg Capsule 25 mg PO Q8H PRN (Reason: Anxiety) lorazepam 0.5 mg Tablet 0.5 mg PO Q6H PRN (Reason: Anxiety) Qty: 4 0RF (DME) FreeStyle Precision Richardson Strips Strip See Rx Instructions .ROUTE .MEDSUPPLY Qty: 50 6RF Rx Instructions: As directed Discontinued gabapentin 100 mg capsule 100 mg PO DAILY PRN (Reason: NERVE PAIN) furosemide 40 mg tablet 40 mg PO DAILY Referrals / Follow Up: Rufus Blanco DO [Primary Care Provider] - Within 1 Week Disposition Disposition (needs filled in before D/C Order can be placed): [facility]
--- NOTE | 2022-10-15 08:06 | PCM.DC.SUM ---
Providers Date of Admission: 10/12/22 Date of Discharge: 10/15/22 Primary Care Physician: Dr. Rufus Blacno DO Reason For Visit: ACUTE DYSPNEA Diagnosis Discharge Diagnosis (1) Acute exacerbation of chronic obstructive pulmonary disease: Status: Chronic Code(s): J44.1 - Chronic obstructive pulmonary disease with (acute) exacerbation (2) Acute exacerbation of CHF (congestive heart failure): Status: Chronic Code(s): I50.9 - Heart failure, unspecified Plan Patient is a 77-year-old lady presented with progressive shortness of breath 1. Acute hypoxia ? Secondary to combination of CHF and COPD exacerbation admitted to monitored bed for subsequent management 2. COPD with acute exacerbation -admitted to a monitored bed managed systemic steroid antibiotics as well as supplemental oxygen titrated to keep saturation greater than 90 3. Acute on chronic congestive heart failure with reduced ejection fraction ? Patient last 2D echo on record obtained on 10/24/2020 demonstrated EF of 40%. Patient being managed on a monitored bed. Placed on strict input and output, daily weight, low-sodium diet as well as IV diuretics echo ordered for EF assessment. Echo did show-Mildly dilated left ventricle.The estimated ejection fraction is 40 %. Stage 2 diastolic dysfunction. The left atrium is mildly enlarged. Moderately severe (3+) mitral valve insufficiency. ? 10/14/2022 adjusted patient diuretic therapy switching Lasix from IV to p.o. 4. Coronary artery disease ? With previous CABG patient is on guideline directed medical therapy 5. Diabetes mellitus type II -patient's oral hypoglycemics held. Placed on long acting insulin, Accu-Cheks a.c. and at bedtime and covered with sliding scale insulin 6. Hypertension - Blood pressure controlled, home medications continued with dose adjustment as needed 7. Previous history of DVT ? Patient is on Coumadin INR on admission was 3.1 did continue with Coumadin daily monitoring with PT/INR ordered 8. Dyslipidemia -Patient is on statin therapy, continued at home dose 9. Depression with anxiety ? Patient is on SSRI as well as lorazepam did continue with both 10. Class III obesity with BMI of 41 ? Weight loss advised 11. DVT prophylaxis ? Patient is on warfarin with a therapeutic INR 12. Anemia - Secondary to chronic disorder monitoring H&H and transfuse if patient becomes symptomatic or hemoglobin falls below 7 Time spent in the patient's overall evaluation,decision-making process, review of diagnostic data, adjustment of management, discussion with other providers, nursing nursing and ancillary staff involved in patient's care documentation, 35 Minutes Medications at Discharge Home Medications famotidine 20 mg tablet 20 mg PO BID stomach 08/14/15 flash glucose scanning reader (FreeStyle Sharita 2 [place]) #1 ea 01/29/20 flash glucose sensor (FreeStyle Sharita 2 Sensor kit) #2 ea 01/29/20 pen needle, diabetic 32 gauge x 5/32 (BD Ultra-Fine Kaylyn Pen Needle) #100 ea 01/29/20 blood sugar diagnostic (FreeStyle Precision Richardson Strips) #50 ea 01/30/20 acetaminophen 325 mg tablet 650 mg PO Q4H PRN Pain 08/17/20 aspirin 81 mg tablet,delayed release (Adult Low Dose Aspirin) 81 mg PO DAILY 08/17/20 atorvastatin 40 mg tablet 40 mg PO QHS 08/17/20 fenofibrate 160 mg tablet 160 mg PO DAILY 08/17/20 insulin lispro 100 unit/mL subcutaneous pen See Protocol subcut ACHS 08/17/20 carvedilol 6.25 mg tablet 6.25 mg PO BID 10/24/20 ascorbic acid (vitamin C) 500 mg tablet 500 mg PO BID 09/04/22 ferrous sulfate 325 mg (65 mg iron) tablet 325 mg PO BID 09/04/22 gabapentin 100 mg capsule 100 mg PO BID NERVE PAIN 09/04/22 insulin glargine 100 unit/mL (3 mL) subcutaneous pen (Lantus Solostar U-100 Insulin) 25 unit subcut QHS diabetes 09/04/22 insulin glargine 100 unit/mL subcutaneous solution (Lantus U-100 Insulin) 32 unit subcut QAM 09/04/22 montelukast 10 mg tablet 10 mg PO DAILY 09/04/22 sennosides 8.6 mg-docusate sodium 50 mg capsule (Senna Plus) 1 tab-cap PO BID PRN Constipation 09/04/22 warfarin 3 mg tablet 3 mg PO WE DVT 09/04/22 bisacodyl 10 mg rectal suppository (Dulcolax (bisacodyl)) 10 mg IA DAILY PRN Constipation 10/03/22 magnesium hydroxide 400 mg/5 mL oral suspension (Milk of Magnesia) 400 mg PO DAILY PRN Constipation 10/03/22 albuterol sulfate 2.5 mg/3 mL (0.083 %) solution for nebulization 2.5 mg inhalation Q4H PRN shortness of breath or wheezing 10/11/22 polyethylene glycol 3350 17 gram/dose oral powder (Miralax) 4 g PO DAILY PRN Constipation 10/11/22 sodium phosphates 19 gram-7 gram/118 mL enema (Enema) 118 ml IA ONCE 10/11/22 warfarin 2 mg tablet 2 mg PO SUMOTUTHFRSA 10/11/22 cetirizine 10 mg tablet (Zyrtec) 10 mg PO DAILY ALLERGIES 10/12/22 cholecalciferol (vitamin D3) 25 mcg (1,000 unit) tablet 25 mcg PO DAILY SUPPLEMENT 10/12/22 cyanocobalamin (vitamin B-12) 500 mcg tablet (Vitamin B-12) 500 mcg PO DAILY SUPPLEMENT 10/12/22 hydroxyzine pamoate 25 mg capsule (Vistaril) 25 mg PO Q8H PRN Anxiety 10/12/22 sertraline 100 mg tablet (Zoloft) 100 mg PO QHS DEPRESSION 10/12/22 sertraline 25 mg tablet (Zoloft) 25 mg PO DAILY DEPRESSION 10/12/22 azithromycin 250 mg tablet 500 mg PO Q24 #0 tabs 10/15/22 furosemide 40 mg tablet 40 mg PO BIDLX #0 tabs 10/15/22 guaifenesin 1,200 mg tablet, extended release 12 hr (Mucus Relief ER) 1,200 mg PO BID #10 tabs 10/15/22 lorazepam 0.5 mg tablet 0.5 mg PO Q6H PRN Anxiety #4 tabs 10/15/22 melatonin 3 mg tablet 3 mg PO QHS PRN PRN Insomnia #0 tabs 10/15/22 menthol 0.44 %-zinc oxide 20.6 % topical ointment (Calmoseptine) 1 applic topical BID #0 grams 10/15/22 nitroglycerin 0.4 mg sublingual tablet 0.4 mg sublingual Q5M PRN Cardiac/Chest Pain #0 tabs 10/15/22 prednisone 20 mg tablet 20 mg PO BID #10 tabs 10/15/22 Hospital Course Procedures 2-D Echocardiogram Summary of Care Provided Minutes Spent on Discharge: 35 Physical Exam Narrative GENERAL: cooperative HEENT: Atraumatic; normocephalic EYES; Anicteric, Normal Conjunctiva NECK; supple, normal thyroid, RESPIRATORY: Diminished to auscultation, CARDIOVASCULAR: Regular S1 S2, GI: soft, normoactive bowel sounds, : No Renal angle tenderness; EXTREMITIES: No edema, no clubbing, MUSCULOSKELETAL: no muscle wasting NEURO: Awake; no lateralizing signs. SKIN: No Rash PSYCH; Flat affect Weight / BMI Weight Weight: 97.1 kg Body Mass Index (BMI) 35.6 ABG / Lab / Microbiology Data Result Diagrams: 10/14/22 06:55 10/15/22 05:51 Laboratory: Laboratory Results - last 24 hr 10/14/22 07:47: POC Glucose 188 H 10/14/22 10:42: POC Glucose 315 H 10/14/22 16:20: POC Glucose 199 H 10/14/22 21:46: POC Glucose 257 H 10/15/22 05:51: Sodium 139, Potassium 4.6, Chloride 98, Carbon Dioxide 36.0 H, Anion Gap 5, BUN 76 H, Creatinine 1.77 H, Estim Creat Clear Calc 23.57, Est GFR (MDRD) Af Amer 36 L, Est GFR (MDRD) Non-Af 30 L, BUN/Creatinine Ratio 42.9 H, Glucose 213 H, Calcium 9.4 10/15/22 05:56: POC Glucose 213 H Microbiology: Microbiology 10/12/22 14:50 Mucosa - Nasopharyngeal Respiratory Panel (PCR) - Final D/C Instructions Discharge Diet: 1800 Calorie Control Diet, 8 Cup Fluid Restriction and 2000 mg Sodium Diet Discharge Activity: Return to Normal Activity Call your doctor if you observe: Fever of 101 or Higher, Shortness of breath, Fainting spells and Chest pain Meaningful Use Info Meaningful Use Diagnoses (Choose all that apply): CHF CHF TREVOR/ARB ordered at discharge?: Yes Reason TREVOR/ARB not ordered?: Worsening renal disease Documented LVEF (%): 40 Discharge Plan Admission Admit Date/Time: 10/12/22 11:38 Attending Provider: Saman Blair Primary Care Provider: Rufus Blanco Discharge Orders/Prescriptions Prescriptions: New furosemide 40 mg Tablet 40 mg PO BIDLX Qty: 0 0RF azithromycin 250 mg Tablet 500 mg PO Q24 Qty: 0 0RF melatonin 3 mg Tablet 3 mg PO QHS PRN PRN (Reason: Insomnia) Qty: 0 0RF nitroglycerin 0.4 mg Tablet, Sublingual 0.4 mg sublingual Q5M PRN (Reason: Cardiac/Chest Pain) Qty: 0 0RF Mucus Relief ER 1,200 mg Tablet Extended Release 12hr 1,200 mg PO BID Qty: 10 0RF menthol-zinc oxide [Calmoseptine] 0.44-20.6 % Ointment 1 applic topical BID Qty: 0 0RF Protocol: *Topical Application Instructions APPLICATION INSTRUCTIONS: groin prednisone 20 mg tablet 20 mg PO BID Qty: 10 0RF Continued (DME) pen needle, diabetic [BD Ultra-Fine Kaylyn Pen Needle] 32 gauge x 5/32 needle See Rx Instructions .ROUTE .MEDSUPPLY Qty: 100 5RF Rx Instructions: 4 times daily (DME) FreeStyle Sharita 2 [place] Misc See Rx Instructions .ROUTE .MEDSUPPLY Qty: 1 0RF Rx Instructions: As directed (DME) FreeStyle Sharita 2 Sensor Kit See Rx Instructions .ROUTE .MEDSUPPLY Qty: 2 12RF Rx Instructions: As directed acetaminophen 325 mg tablet 650 mg PO Q4H PRN (Reason: Pain) aspirin [Adult Low Dose Aspirin] 81 mg tablet,delayed release (DR/EC) 81 mg PO DAILY atorvastatin 40 mg tablet 40 mg PO QHS insulin lispro 100 unit/mL insulin pen See Protocol SC ACHS Protocol: 6. Sliding Scale Insulin Custom Condition: mg/dl range Dose/Route: Number of Units Condition: 151-200 Dose/Route: 2 Condition: 201-250 Dose/Route: 4 Condition: 251-300 Dose/Route: 6 Condition: 301-350 Dose/Route: 8 Condition: 351-400 Dose/Route: 10 Condition: >401 Dose/Route: 12 Instruction: CALL MD Protocol Text: Custom Sliding Scale Rx Instructions: sliding scale subcut before meals; fenofibrate 160 mg tablet 160 mg PO DAILY Senna Plus 8.6-50 mg capsule 1 tab-cap PO BID PRN (Reason: Constipation) gabapentin 100 mg capsule 100 mg PO BID albuterol sulfate 2.5 mg /3 mL (0.083 %) solution for nebulization 2.5 mg inhalation Q4H PRN (Reason: shortness of breath or wheezing) Enema 19-7 gram/118 mL enema 118 ml IA ONCE polyethylene glycol 3350 [Miralax] 17 gram/dose powder 4 g PO DAILY PRN (Reason: Constipation) warfarin 2 mg tablet 2 mg PO CHUY warfarin 3 mg tablet 3 mg PO WE ferrous sulfate 325 mg (65 mg iron) tablet 325 mg PO BID insulin glargine [Lantus U-100 Insulin] 100 unit/mL solution 32 unit subcut QAM montelukast 10 mg tablet 10 mg PO DAILY ascorbic acid (vitamin C) 500 mg tablet 500 mg PO BID famotidine 20 MG tablet 20 mg PO BID Lantus Solostar U-100 Insulin 100 unit/mL (3 mL) insulin pen 25 unit SC QHS carvedilol 6.25 mg Tablet 6.25 mg PO BID magnesium hydroxide [Milk of Magnesia] 400 mg/5 mL Suspension 400 mg PO DAILY PRN (Reason: Constipation) bisacodyl [Dulcolax (bisacodyl)] 10 mg Suppository 10 mg IA DAILY PRN (Reason: Constipation) cetirizine [Zyrtec] 10 mg Tablet 10 mg PO DAILY sertraline [Zoloft] 100 mg Tablet 100 mg PO QHS cyanocobalamin (vitamin B-12) [Vitamin B-12] 500 mcg Tablet 500 mcg PO DAILY sertraline [Zoloft] 25 mg Tablet 25 mg PO DAILY cholecalciferol (vitamin D3) 25 mcg (1,000 unit) Tablet 25 mcg PO DAILY hydroxyzine pamoate [Vistaril] 25 mg Capsule 25 mg PO Q8H PRN (Reason: Anxiety) lorazepam 0.5 mg Tablet 0.5 mg PO Q6H PRN (Reason: Anxiety) Qty: 4 0RF (DME) FreeStyle Precision Richardson Strips Strip See Rx Instructions .ROUTE .MEDSUPPLY Qty: 50 6RF Rx Instructions: As directed Discontinued gabapentin 100 mg capsule 100 mg PO DAILY PRN (Reason: NERVE PAIN) furosemide 40 mg tablet 40 mg PO DAILY Referrals / Follow Up: Rufus Blanco DO [Primary Care Provider] - Within 1 Week Disposition Disposition (needs filled in before D/C Order can be placed): [facility] Charges/Coding Visit Charges Inpatient E&M: 79155 Disch Hosp >30min
[2022-10-15] MEDS: guaiFENesin 1,200 MG Tablet 1200 MG PO (09:07)
[2022-10-15] MEDS: Loratadine 10 MG Tablet PO (09:07)
[2022-10-15] MEDS: Carvedilol 6.25 MG Tablet PO (09:07)
[2022-10-15] MEDS: Sertraline 50 MG Tablet 25 MG PO (09:07)
[2022-10-15] MEDS: Cholecalciferol (VIT D3) 25 MCG TABLET (1,000 UNITS) PO (09:07)
[2022-10-15] MEDS: Ferrous Sulfate 325 MG Tablet PO (09:07)
[2022-10-15] MEDS: Cyanocobalamin 500 MCG Tablet PO (09:07)
[2022-10-15] MEDS: Ascorbic Acid 500 MG Tablet PO (09:07)
[2022-10-15] MEDS: Aspirin E.C. 81 MG Tablet PO (09:07)
[2022-10-15] MEDS: Menthol/Lanolin/Calamine/Znox 113 GM Tube 1 APPLIC TOPICAL (09:08)
[2022-10-15] MEDS: Insulin Glargine-YFGN 100 UNIT/ML Pen 32 UNIT SC (09:08)
[2022-10-15] MEDS: Furosemide 40 MG Tablet PO (09:09)
[2022-10-15] MEDS: Famotidine 20 MG Tablet PO (09:09)
[2022-10-15] MEDS: Montelukast 10 MG Tablet PO (09:09)
[2022-10-15] MEDS: Azithromycin 250 MG Tablet 500 MG PO (09:10)
[2022-10-15] MEDS: Gabapentin 100 MG Capsule PO (09:12)
[2022-10-15 09:32] VITALS: BP 160/59; PULSE 73; RESP 18; TEMP 37.2; O2SAT 96
== END 2022-10-15 11:27 | disposition skilled nursing facility (03) | DRG 291 ==
LOC: ED 11:38 → MS3 11:57
PROVIDERS: Admitting Provider Internal Medicine; Emergency Provider Emergency Medicine; PCP Family Medicine; Visit Provider Internal Medicine
DX: I13.0 Hypertensive heart and chronic kidney disease with heart failure and stage 1 through stage 4 chronic kidney disease, or unspecified chronic kidney disease (principal); I50.23 Acute on chronic systolic (congestive) heart failure; J44.1 Chronic obstructive pulmonary disease with (acute) exacerbation; N18.4 Chronic kidney disease, stage 4 (severe); Z68.41 Body mass index [BMI] 40.0-44.9, adult; I42.9 Cardiomyopathy, unspecified; E11.22 Type 2 diabetes mellitus with diabetic chronic kidney disease; D64.9 Anemia, unspecified; E66.9 Obesity, unspecified; Z79.4 Long term (current) use of insulin; E78.5 Hyperlipidemia, unspecified; J98.01 Acute bronchospasm; I25.10 Atherosclerotic heart disease of native coronary artery without angina pectoris; F41.8 Other specified anxiety disorders; I34.0 Nonrheumatic mitral (valve) insufficiency; Z95.1 Presence of aortocoronary bypass graft; Z87.891 Personal history of nicotine dependence; R09.02 Hypoxemia; Z66 Do not resuscitate; Z79.01 Long term (current) use of anticoagulants; Z86.718 Personal history of other venous thrombosis and embolism
CPT/HCPCS: 36415; 71046; 80048; 81001; 82962; 83735; 83880; 84100; 84484; 85025; 85610; 87426; 87633; 93005; 93306; 94640; 94762; 97116; 97162; 97166; 97530; 97535; 97802; 99252; 99285; Q9957; A4216; C8929; G0463; J1940

== ENCOUNTER 2023-02-10 02:48 | Emergency (ER) | payer MEDICARE, MEDICAID, SELFPAY ==
[2023-02-10 02:53] VITALS: BP 138/66; PULSE 71; RESP 18; TEMP 37.4; O2SAT 95
[2023-02-10 02:56] VITALS: BP 138/66; PULSE 71; RESP 18; TEMP 37.4; O2SAT 95
[2023-02-10] MEDS: fentaNYL 100 MCG/2 ML Ampul 25 MCG IV (03:50)
[2023-02-10] MEDS: Ondansetron 4 MG/2 ML Vial IV (03:50)
[2023-02-10 04:02] LABS: Absolute Lymphocyte Count 1.99 X10^3/uL (0.83-4.51); Absolute Neutrophil Count 7.7 X10^3/uL (2.0-7.7); Basophil# 0.04 X10^3/uL; Basophil% 0.3 % (0-1); Eosinophil# 0.43 X10^3/uL; Eosinophils% 3.6 % (0-5); Hematocrit 32.7 % (37-47); Hemoglobin 9.7 g/dL (12.0-15.0); Lymphocyte # 1.99 X10^3/ul (0.83-4.51); Lymphocyte % 16.9 % (19-41); Mean Corp Hgb Conc 29.7 g/dL (32-36); Mean Corpuscular Hgb 29.9 pg (27.0-32.0); Mean Corpuscular Volume 100.9 fL (81-99); Mean Platelet Vol. 12.5 fl (6.2-12.0); Monocyte# 1.52 X10^3/uL; Monocyte% 12.9 % (0-10); NRBC Flagged by Analyzer 0 % (0-5); Neutrophil % 65.3 % (47-70); POSITIVE DIFFERENTIAL YES; Platelet Count 184 K/mm3 (150-450); RBC Distribution Width CV 14.8 % (11.6-14.6); RBC Distribution Width SD 55.4 fl (35.1-43.9); Red Blood Count 3.24 M/mm3 (4.2-5.4); White Blood Count 11.8 K/mm3 (4.4-11.0)
[2023-02-10 04:21] LABS: Differential Indicated SCAN CRITERIA MET
--- NOTE | 2023-02-10 04:25 | RAD_ITS ---
INDICATION: pain EXAMINATION/TECHNIQUE: X-RAY - LEFT XR Femur Min 2 Views 4 VIEWS COMPARISON: Pelvis radiograph on same day FINDINGS: SOFT TISSUES: No soft tissue swelling or gas. No radiopaque foreign body. Diffuse peripheral atherosclerosis. Multiple surgical clips in the medial left lower thigh. BONES/JOINTS: No acute fracture.. Normal alignment. [Joint space narrowing and mild osteophyte formation. Mild knee tricompartment space narrowing.. No sclerotic or destructive changes observed. RAD/Femur Min 2 Views IMPRESSION: No evidence of osseous injury. Mild knee and hip osteoarthritis. Diffuse peripheral atherosclerosis.. Electronically Signed: Yunior Manrique MD at 4:59 EDT ,
[2023-02-10 04:34] LABS: Prothrombin Time (Protime)PT. 63.8 SECONDS (11.7-14.9)
[2023-02-10 04:36] LABS: International Normalized Ratio 7.3
--- NOTE | 2023-02-10 04:36 | EDS_ITS ---
HPI History of Present Illness Chief Complaint: Lower Extremity Injury Informant: patient Narrative Narrative: Patient is a 69-year-old female from [facility] with past medical history of type 2 diabetes ischemic cardiomyopathy hypertension hyperlipidemia and congestive heart failure. She also has a history of peripheral arterial disease and is on Coumadin. Patient states that she has noticed pain and bruising to her left thigh with no recent trauma. She states she is taking Tylenol at her [facility] but the pain is not controlled with this and therefore comes in for evaluation [facility] Medical History Allergic rhinitis Anemia Anxiety Anxiety disorder Asthma Atherosclerotic heart disease of [place] coronary artery without angina pectoris Cardiomyopathy, ischemic Chest pain Chronic renal failure, stage 3 (moderate) Congestive heart failure (CHF) COPD (chronic obstructive pulmonary disease) COPD exacerbation Debility Depression Diabetes mellitus, type 2 DVT (deep venous thrombosis) DVT of lower extremity (deep venous thrombosis) (2012) Essential hypertension Former smoker Gastroesophageal reflux disease with hiatal hernia History of non-ST elevation myocardial infarction (NSTEMI) (07/13/20) Hyperlipidemia Hypertension Kidney disease Left bundle branch block Lung nodule [place]ieres disease Myocardial infarct Obesity (BMI 30-39.9) On home oxygen therapy Pulmonary edema Rheumatoid arthritis Stage 2 moderate COPD by GOLD classification Home Medications famotidine 20 mg tablet 20 mg PO BID stomach 08/14/15 [History Last Taken 10/12/22] flash glucose scanning reader (FreeStyle Sharita 2 [place]) #1 ea 01/29/20 [Rx Last Taken Unknown] flash glucose sensor (FreeStyle Sharita 2 Sensor kit) #2 ea 01/29/20 [Rx Last Taken Unknown] pen needle, diabetic 32 gauge x 5/32 (BD Ultra-Fine Kaylyn Pen Needle) #100 ea 01/29/20 [Rx Last Taken Unknown] blood sugar diagnostic (FreeStyle Precision Richardson Strips) #50 ea 01/30/20 [Rx Last Taken Unknown] acetaminophen 325 mg tablet 650 mg PO Q4H PRN Pain 08/17/20 [History Last Taken Unknown] aspirin 81 mg tablet,delayed release (Adult Low Dose Aspirin) 81 mg PO DAILY 08/17/20 [History Last Taken 10/12/22] atorvastatin 40 mg tablet 40 mg PO QHS 08/17/20 [History Last Taken 10/11/22] fenofibrate 160 mg tablet 160 mg PO DAILY 08/17/20 [History Last Taken 10/12/22] insulin lispro 100 unit/mL subcutaneous pen See Protocol subcut ACHS 08/17/20 [History Last Taken 10/11/22] carvedilol 6.25 mg tablet 6.25 mg PO BID 10/24/20 [History Last Taken 10/12/22] ascorbic acid (vitamin C) 500 mg tablet 500 mg PO BID 09/04/22 [History Last Taken 10/11/22] ferrous sulfate 325 mg (65 mg iron) tablet 325 mg PO BID 09/04/22 [History Last Taken 10/12/22] insulin glargine 100 unit/mL (3 mL) subcutaneous pen (Lantus Solostar U-100 Insulin) 25 unit subcut [facility] diabetes 09/04/22 [History Last Taken 10/11/22] insulin glargine 100 unit/mL subcutaneous solution (Lantus U-100 Insulin) 32 unit subcut QAM 09/04/22 [History Last Taken 10/11/22] montelukast 10 mg tablet 10 mg PO DAILY 09/04/22 [History Last Taken 10/12/22] sennosides 8.6 mg-docusate sodium 50 mg capsule (Senna Plus) 1 tab-cap PO BID PRN Constipation 09/04/22 [History Last Taken Unknown] bisacodyl 10 mg rectal suppository (Dulcolax (bisacodyl)) 10 mg OR DAILY PRN Constipation 10/03/22 [History Last Taken Unknown] magnesium hydroxide 400 mg/5 mL oral suspension (Milk of Magnesia) 400 mg PO DAILY PRN Constipation 10/03/22 [History Last Taken Unknown] polyethylene glycol 3350 17 gram/dose oral powder (Miralax) 4 g PO DAILY PRN Constipation 10/11/22 [History Last Taken Unknown] cetirizine 10 mg tablet (Zyrtec) 10 mg PO DAILY ALLERGIES 10/12/22 [History Last Taken 10/11/22] cholecalciferol (vitamin D3) 25 mcg (1,000 unit) tablet 25 mcg PO DAILY SUPPLEMENT 10/12/22 [History Last Taken 10/12/22] cyanocobalamin (vitamin B-12) 500 mcg tablet (Vitamin B-12) 500 mcg PO DAILY SUPPLEMENT 10/12/22 [History Last Taken 10/12/22] hydroxyzine pamoate 25 mg capsule (Vistaril) 25 mg PO Q8H PRN Anxiety 10/12/22 [History Last Taken Unknown] sertraline 100 mg tablet (Zoloft) 100 mg PO QHS DEPRESSION 10/12/22 [History Last Taken 10/11/22] sertraline 25 mg tablet (Zoloft) 25 mg PO DAILY DEPRESSION 10/12/22 [History Last Taken 10/11/22] lorazepam 0.5 mg tablet 0.5 mg PO Q6H PRN Anxiety #4 tabs 10/15/22 [Rx Last Taken Unknown] menthol 0.44 %-zinc oxide 20.6 % topical ointment (Calmoseptine) 1 applic topical BID #0 grams 10/15/22 [Rx Last Taken Unknown] nitroglycerin 0.4 mg sublingual tablet 0.4 mg sublingual Q5M PRN Cardiac/Chest Pain #0 tabs 10/15/22 [Rx Last Taken Unknown] carbamide peroxide 6.5 % ear drops (Debrox) 3 drp otic (ear) DAILY 01/16/23 [History Last Taken Unknown] gabapentin 300 mg capsule 300 mg PO BID 01/16/23 [History Last Taken Unknown] guaifenesin 400 mg tablet 400 mg PO BID 01/16/23 [History Last Taken Unknown] ipratropium 0.5 mg-albuterol 3 mg (2.5 mg base)/3 mL nebulization soln 3 ml inhalation Q4H PRN BREATHING 01/16/23 [History Last Taken Unknown] ipratropium 0.5 mg-albuterol 3 mg (2.5 mg base)/3 mL nebulization soln 3 ml inhalation TID 01/16/23 [History Last Taken Unknown] warfarin 2.5 mg tablet 2.5 mg PO DAILY BLOOD THINNER 01/16/23 [History Last Taken Unknown] dapagliflozin propanediol 10 mg tablet (Farxiga) 10 mg PO DAILY 01/19/23 [H istory Last Taken Unknown] furosemide 20 mg tablet (Lasix) 40 mg PO DAILY 01/19/23 [History Last Taken Unknown] furosemide 40 mg tablet 60 mg PO DAILY 01/19/23 [History Last Taken Unknown] oxycodone 5 mg capsule 5 mg PO Q6H PRN pain 3 days #12 caps 02/10/23 [Rx Last Taken Unknown] Allergy/AdvReac Type Severity Reaction Status Date / Time Penicillins Allergy Angioedema Verified 02/10/23 02:52 rosiglitazone maleate Allergy hyperglycem Verified 02/10/23 02:52 [From Avandia] ia adhesive tape AdvReac Rash Verified 02/10/23 02:52 cephalexin [From Keflex] AdvReac Diarrhea Verified 02/10/23 02:52 doxycycline AdvReac Diarrhea Verified 02/10/23 02:52 prednisone AdvReac hyperglycem Verified 02/10/23 02:52 ia Sulfa (Sulfonamide AdvReac Itching Verified 02/10/23 02:52 Antibiotics) Family History (Reviewed 01/19/23 @ 09:24 by Elvis Martell DENTAL LABORATORY TECHNICIAN, DENTAL LABORATORY TECHNICIAN-C) Sister Lupus Arthritis Brother Colon cancer Cancer Prostate Cancer Arthritis Father Diabetes Heart disease Mother Hypertension Surgical History (Reviewed 01/19/23 @ 09:24 by Elvis Martell DENTAL LABORATORY TECHNICIAN, DENTAL LABORATORY TECHNICIAN-C) H/O coronary artery bypass surgery (07/27/20) History of History of cholecystectomy History of coronary artery stent placement History of left heart catheterization (07/19/20) Social History (Reviewed 01/19/23 @ 09:24 by Elvis Martell DENTAL LABORATORY TECHNICIAN, DENTAL LABORATORY TECHNICIAN-C) household members: other details: passed 08/2020. housing: [facility] Smoking Status: Former smoker how long ago did patient quit smokin alcohol intake: never substance use type: does not use caffeine: No what type of physical activity do you participate in: none frequency: does not exercise seatbelt use: always ROS ROS ED Constitutional Constitutional ED: Denies chills or fever(s) ENT ENT ED: Denies sore throat Cardiovascular Cardiovascular: Denies chest pain Respiratory/Chest Respiratory/Chest: Denies cough or dyspnea Gastrointestinal Gastrointestinal: Denies abdominal pain, diarrhea, nausea or vomiting Genitourinary Genitourinary ED: Denies dysuria Musculoskeletal Musculoskeletal: Reports other Details: Positive left leg pain Integumentary Reports other Details: Positive left leg bruising and swelling ; Denies rash Neurologic Neurologic: Denies headache(s) Hematologic/Lymphatic Hematologic/Lymphatic: Reports easy bleeding and easy bruising EXAM Physical Exam Const Vital Signs: 02/10/23 02:53 02/10/23 02:56 Temperature 99.3 F H 99.3 F H Temperature Source Temporal Temporal Pulse Rate 71 71 Respiratory Rate 18 18 Blood Pressure 138/66 H 138/66 H Blood Pressure Mean 90 90 Pulse Ox 95 95 Oxygen Delivery Method Nasal Cannula Nasal Cannula Oxygen Flow Rate (L/min) 2 2 Positive well nourished, well developed and obese General Appearance ED: well developed Nutritional Appearance: obese HEENT HEENT Narrative: Normocephalic atraumatic Eyes PERRL and EOMs intact bilaterally General Eye ED: Yes pale conjunctiva; Negative for scleral icterus Neck supple and no JVD Resp normal respiratory effort and clear to auscultation bilaterally Resp Narrative: Breath sounds are diminished throughout but overall clear to auscultation with no signs of respiratory distress Cardio regular rate and regular rhythm Extremity Extremity Narrative: Patient has ecchymosis along the posterior aspect of her left thigh that starts in the proximal third and tracks down towards the knee/popliteal fossa but does not pass this. Compartments are soft going against compartment syndrome. No asymmetric warmth noted. No obvious abscess or cellulitis present. Temperature between both lower extremities is equal and capillary refill is approximately 3 seconds bilaterally Neuro oriented x3 and CN's II-XII intact bilaterally Sensorium / Orientation: alert Psych mental status grossly normal Skin Skin Narrative: Ecchymosis/hematoma to the posterior aspect of the left thigh as documented above MDM MDM MDM Narrative Medical decision making narrative: Patient presented to the ER slightly hypertensive but otherwise with stable vitals. She reported pain and bruising in her left thigh with no known trauma. Differential diagnosis is cellulitis versus abscess versus hematoma versus supratherapeutic INR versus compartment syndrome versus occult fracture. Secondary to this an x-ray of the femur was obtained which revealed arthritic changes with no fracture or foreign body. Blood work showed a stable hemoglobin and her exam does not indicate cellulitis or abscess. Her INR is supratherapeutic at 7.3 and this goes against patient having developed a DVT with a supratherapeutic value. Patient was given fentanyl and her pain improved in the ER. She does not have signs of compartment syndrome as the tissue is soft and compressible and there is no signs of arterial occlusion as capillary refill and color and temperature are equal in the lower extremities bilaterally. At this time patient will be given oral vitamin K and then advised to hold her Coumadin for the next 3 days. At which time a repeat value should be drawn. She will also be placed in a Antonio wrap to help with compression and prevent further swelling and bleeding. However at this time as she is not hypotensive as her H&H is stable and there are no signs of other spontaneous bleeding or arterial occlusion or infection I do not feel she needs to be in the ER any longer and is otherwise safe for home/fdc History & Record Review Discussion w/independent historian: Patient Lab Data Attestation: I reviewed the patient's lab results. Labs: Laboratory Results - last 24 hr 02/10/23 03:56 WBC 11.8 H RBC 3.24 L Hgb 9.7 L Hct 32.7 L MCV 100.9 H MCH 29.9 MCHC 29.7 L RDW Std Deviation 55.4 H RDW Coeff of [place] 14.8 H Plt Count 184 MPV 12.5 H Immature Gran % (Auto) 1.000 H Neut % (Auto) 65.3 Lymph % (Auto) 16.9 L Cannon % (Auto) 12.9 H Eos % (Auto) 3.6 Baso % (Auto) 0.3 Absolute Neuts (auto) 7.7 Absolute Lymphs (auto) 1.99 Nucleated RBC % 0 Differential Comment SCANNED Diff Path Review May foll PT 63.8 H INR 7.3 H* APTT 109.7 H* Radiography Diagnostic Testing: Clinical Impression(s) from Imaging Studies Femur X-Ray 02/10/23 04:25 IMPRESSION: No evidence of osseous injury. Mild knee and hip osteoarthritis. Diffuse peripheral atherosclerosis.. Electronically Signed: Yunior Manrique MD at 4:59 EDT Reading Location ID and State: [facility] / [place] Tel , Service support , X-ray of the left femur as interpreted by the emergency medicine physician reveals osteoarthritic changes without acute fracture or dislocation or foreign body Discharge Plan Triage Chief Complaint: Lower Extremity Injury ED Provider: Ronnie Hamm Dx/Rx/DC Orders Clinical Impression: Current use of manager terminal anticoagulation, Hematoma of left thigh, Supratherapeutic INR, Essential hypertension, Diabetes mellitus, type 2 Instructions: International Normalized Ratio, ED Hematoma Prescriptions: New oxycodone 5 mg capsule 5 mg PO Q6H PRN (Reason: pain) 3 Days Qty: 12 0RF No Action (DME) pen needle, diabetic [BD Ultra-Fine Kaylyn Pen Needle] 32 gauge x 5/32 needle See Rx Instructions .ROUTE .MEDSUPPLY Qty: 100 5RF Rx Instructions: 4 times daily (DME) FreeStyle Sharita 2 [place] Misc See Rx Instructions .ROUTE .MEDSUPPLY Qty: 1 0RF Rx Instructions: As directed (DME) FreeStyle Sharita 2 Sensor Kit See Rx Instructions .ROUTE .MEDSUPPLY Qty: 2 12RF Rx Instructions: As directed acetaminophen 325 mg tablet 650 mg PO Q4H PRN (Reason: Pain) aspirin [Adult Low Dose Aspirin] 81 mg tablet,delayed release (DR/EC) 81 mg PO DAILY atorvastatin 40 mg tablet 40 mg PO QHS insulin lispro 100 unit/mL insulin pen See Protocol [facility] Protocol: 6. Sliding Scale Insulin Custom Condition: mg/dl range Dose/Route: Number of Units Condition: 151-200 Dose/Route: 2 Condition: 201-250 Dose/Route: 4 Condition: 251-300 Dose/Route: 6 Condition: 301-350 Dose/Route: 8 Condition: 351-400 Dose/Route: 10 Condition: >401 Dose/Route: 12 Instruction: CALL MD Protocol Text: Custom Sliding Scale Rx Instructions: sliding scale subcut before meals; fenofibrate 160 mg tablet 160 mg PO DAILY Senna Plus 8.6-50 mg capsule 1 tab-cap PO BID PRN (Reason: Constipation) polyethylene glycol 3350 [Miralax] 17 gram/dose powder 4 g PO DAILY PRN (Reason: Constipation) ferrous sulfate 325 mg (65 mg iron) tablet 325 mg PO BID insulin glargine [Lantus U-100 Insulin] 100 unit/mL solution 32 unit subcut QAM montelukast 10 mg tablet 10 mg PO DAILY ascorbic acid (vitamin C) 500 mg tablet 500 mg PO BID Debrox 6.5 % drops 3 drp otic (ear) DAILY Rx Instructions: for 2 weeks warfarin 2.5 mg tablet 2.5 mg PO DAILY Rx Instructions: TAKE ON SUNDAY, SUNDAY & SUNDAY gabapentin 300 mg capsule 300 mg PO BID guaifenesin 400 mg tablet 400 mg PO BID ipratropium-albuterol 0.5 mg-3 mg(2.5 mg base)/3 mL solution for nebulization 3 ml inhalation Q4H PRN (Reason: BREATHING) ipratropium-albuterol 0.5 mg-3 mg(2.5 mg base)/3 mL solution for nebulization 3 ml inhalation TID Farxiga 10 mg tablet 10 mg PO DAILY furosemide [Lasix] 20 mg tablet 40 mg PO DAILY furosemide 40 mg tablet 60 mg PO DAILY famotidine 20 MG tablet 20 mg PO BID Lantus Solostar U-100 Insulin 100 unit/mL (3 mL) insulin pen 25 unit SC QHS carvedilol 6.25 mg Tablet 6.25 mg PO BID magnesium hydroxide [Milk of Magnesia] 400 mg/5 mL Suspension 400 mg PO DAILY PRN (Reason: Constipation) bisacodyl [Dulcolax (bisacodyl)] 10 mg Suppository 10 mg OR DAILY PRN (Reason: Constipation) cetirizine [Zyrtec] 10 mg Tablet 10 mg PO DAILY sertraline [Zoloft] 100 mg Tablet 100 mg PO QHS cyanocobalamin (vitamin B-12) [Vitamin B-12] 500 mcg Tablet 500 mcg PO DAILY sertraline [Zoloft] 25 mg Tablet 25 mg PO DAILY cholecalciferol (vitamin D3) 25 mcg (1,000 unit) Tablet 25 mcg PO DAILY hydroxyzine pamoate [Vistaril] 25 mg Capsule 25 mg PO Q8H PRN (Reason: Anxiety) nitroglycerin 0.4 mg Tablet, Sublingual 0.4 mg sublingual Q5M PRN (Reason: Cardiac/Chest Pain) Qty: 0 0RF menthol-zinc oxide [Calmoseptine] 0.44-20.6 % Ointment 1 applic topical BID Qty: 0 0RF Protocol: *Topical Application Instructions APPLICATION INSTRUCTIONS: groin lorazepam 0.5 mg Tablet 0.5 mg PO Q6H PRN (Reason: Anxiety) Qty: 4 0RF (DME) FreeStyle Precision Richardson Strips Strip See Rx Instructions .ROUTE .MEDSUPPLY Qty: 50 6RF Rx Instructions: As directed Primary Care Provider: Rufus Blanco Referrals: Rufus Blanco DO [Primary Care Provider] - Activity Restrictions/Additional Instructions: Your lab work shows that your INR/Coumadin level is drastically elevated at 7.3 today. You have been given 1 dose of vitamin K to help reverse this. Hold your Coumadin level for Sunday and Sunday and have the level rechecked on Sunday. Based on this value your doctor will indicate if you are appropriate to restart your Coumadin dose. Use the oxycodone prescribed for improved pain control and you may add Tylenol as needed. Please wear the Antonio wrap for compression to help control any further bleeding and swelling and return to the ER should you have any further concerns. Disposition Disposition: Home, Self Care
[2023-02-10 04:37] LABS: Partial Thromboplast Time 109.7 Seconds (24.1-36.2)
[2023-02-10 04:55] LABS: Differential Comment SCANNED
[2023-02-10] MEDS: Phytonadione (Vit K1) 5 MG TABLET 10 MG PO (05:31)
[2023-02-10 05:37] VITALS: BP 148/60
--- NOTE | 2023-02-10 06:28 | ED.RN ---
this rn attempted to call report at this time. this rn on hold for 15 min with no answer.
[2023-02-10 07:44] VITALS: BP 123/59; PULSE 62
[2023-02-13 09:49] LABS: Pathologist Review Reviewed
== END 2023-02-10 07:45 | disposition home or self-care (01) ==
PROVIDERS: Emergency Provider Emergency Medicine; PCP Family Medicine; Visit Provider Emergency Medicine
DX: S70.12XA Contusion of left thigh, initial encounter (principal); E11.51 Type 2 diabetes mellitus with diabetic peripheral angiopathy without gangrene; J44.9 Chronic obstructive pulmonary disease, unspecified; I50.9 Heart failure, unspecified; I13.0 Hypertensive heart and chronic kidney disease with heart failure and stage 1 through stage 4 chronic kidney disease, or unspecified chronic kidney disease; E11.22 Type 2 diabetes mellitus with diabetic chronic kidney disease; Z79.4 Long term (current) use of insulin; N18.30 Chronic kidney disease, stage 3 unspecified; Z79.01 Long term (current) use of anticoagulants; E78.5 Hyperlipidemia, unspecified; Z87.891 Personal history of nicotine dependence; R79.1 Abnormal coagulation profile; I25.10 Atherosclerotic heart disease of native coronary artery without angina pectoris; I25.2 Old myocardial infarction; K21.9 Gastro-esophageal reflux disease without esophagitis; Z79.899 Other long term (current) drug therapy; Z79.82 Long term (current) use of aspirin; F41.9 Anxiety disorder, unspecified; Z90.49 Acquired absence of other specified parts of digestive tract; Z95.5 Presence of coronary angioplasty implant and graft
CPT/HCPCS: 73552; 85025; 85610; 85730; 96374; 96375; 99285; A4216; J2405

== ENCOUNTER 2023-02-10 17:00 | Emergency (ER) | payer MEDICARE, MEDICAID, SELFPAY ==
[2023-02-10] VITALS (11 sets, daily range): BP systolic 134–159; BP diastolic 52–99; PULSE 84–95; RESP 16–28; TEMP 37.9–38; O2SAT 17–98; BMI 37.9
--- NOTE | 2023-02-10 17:17 | CT_ITS ---
STUDY: CT BRAIN WITHOUT CONTRAST REASON FOR EXAM: Female, 77 years old. fall, head injury RADIATION DOSAGE (If Supplied By Facility): CTDIvol = ( 44.99 ) mGy, DLP = ( 745.49 ) mGycm TECHNIQUE: Transaxial CT imaging of the brain was performed without administration of intravenous contrast material. Individualized dose optimization techniques were used for this CT. COMPARISON: 08/14/2015. FINDINGS: Normal soft tissue structures. Normal calvarium. There is mild cerebral atrophy with widening of the extra-axial spaces and ventricular dilatation. Normal white matter tracts of the cerebral hemispheres. Normal basal ganglia and thalami. Normal brainstem. Normal cerebellum. There is no intracranial hemorrhage. There are no findings of an acute ischemic infarction. Trace mucosal thickening of the right maxillary sinus, otherwise normal visualized paranasal sinuses and bilateral mastoids. CT/Brain/Head without Contrast IMPRESSION: Involutional changes, otherwise normal CT scan of the brain for age. Electronically Signed: Jovita Atkinson MD at 18:33 EDT ,
--- NOTE | 2023-02-10 17:18 | EX.ED.DYSGE1 ---
HPI <DAYANA Varma - Last Filed: 02/11/23 20:08> History of Present Illness Chief Complaint: Fall Narrative Narrative: Patient presenting today due to a fever, feeling ill, and being A&O x1 at her residential when she is generally x4. Here, she A&Ox 2. The residential center report saying that she had a fall this morning, it is unclear whether or not this fall was witnessed or whether or not she hit her head. Patient is not sure what happened that caused her to fall and is not sure if she hit her head. She was evaluated here in the ED earlier today, but it is unclear whether or not that was before or after her fall. However, she was seen due to a hematoma to her left medial thigh that seemed to have presented itself atraumatically. Patient reports having COVID earlier in the month and has been coughing more. She denies any chest pain, abdominal pain, nausea, vomiting, and urinary symptoms. PMH includes T2DM, COPD, hyperlipidemia, HTN, CAD, CKD, and CHF. PFSH <DAYANA Varma - Last Filed: 02/11/23 20:08> PFSH Medical History Allergic rhinitis Anemia Anxiety Anxiety disorder Asthma Atherosclerotic heart disease of [place] coronary artery without angina pectoris Cardiomyopathy, ischemic Chest pain Chronic renal failure, stage 3 (moderate) Congestive heart failure (CHF) COPD (chronic obstructive pulmonary disease) COPD exacerbation Debility Depression Diabetes mellitus, type 2 DVT (deep venous thrombosis) DVT of lower extremity (deep venous thrombosis) (2012) Essential hypertension Former smoker Gastroesophageal reflux disease with hiatal hernia History of non-ST elevation myocardial infarction (NSTEMI) (07/13/20) Hyperlipidemia Hypertension Kidney disease Left bundle branch block Lung nodule Menieres disease Myocardial infarct Obesity (BMI 30-39.9) On home oxygen therapy Pulmonary edema Rheumatoid arthritis Stage 2 moderate COPD by GOLD classification Home Medications famotidine 20 mg tablet 20 mg PO BID stomach 08/14/15 [History Last Taken 10/12/22] flash glucose scanning reader (FreeStyle Sharita 2 [place]) #1 ea 01/29/20 [Rx Last Taken Unknown] flash glucose sensor (FreeStyle Sharita 2 Sensor kit) #2 ea 01/29/20 [Rx Last Taken Unknown] pen needle, diabetic 32 gauge x 5/32 (BD Ultra-Fine Kaylyn Pen Needle) #100 ea 01/29/20 [Rx Last Taken Unknown] blood sugar diagnostic (FreeStyle Precision Richardson Strips) #50 ea 01/30/20 [Rx Last Taken Unknown] acetaminophen 325 mg tablet 650 mg PO Q4H PRN Pain 08/17/20 [History Last Taken Unknown] aspirin 81 mg tablet,delayed release (Adult Low Dose Aspirin) 81 mg PO DAILY 08/17/20 [History Last Taken 10/12/22] atorvastatin 40 mg tablet 40 mg PO QHS 08/17/20 [History Last Taken 10/11/22] fenofibrate 160 mg tablet 160 mg PO DAILY 08/17/20 [History Last Taken 10/12/22] insulin lispro 100 unit/mL subcutaneous pen See Protocol subcut ACHS 08/17/20 [History Last Taken 10/11/22] carvedilol 6.25 mg tablet 6.25 mg PO BID 10/24/20 [History Last Taken 10/12/22] ascorbic acid (vitamin C) 500 mg tablet 500 mg PO BID 09/04/22 [History Last Taken 10/11/22] ferrous sulfate 325 mg (65 mg iron) tablet 325 mg PO BID 09/04/22 [History Last Taken 10/12/22] insulin glargine 100 unit/mL (3 mL) subcutaneous pen (Lantus Solostar U-100 Insulin) 25 unit subcut Q diabetes 09/04/22 [History Last Taken 10/11/22] insulin glargine 100 unit/mL subcutaneous solution (Lantus U-100 Insulin) 32 unit subcut QAM 09/04/22 [History Last Taken 10/11/22] montelukast 10 mg tablet 10 mg PO DAILY 09/04/22 [History Last Taken 10/12/22] sennosides 8.6 mg-docusate sodium 50 mg capsule (Senna Plus) 1 tab-cap PO BID PRN Constipation 09/04/22 [History Last Taken Unknown] bisacodyl 10 mg rectal suppository (Dulcolax (bisacodyl)) 10 mg DC DAILY PRN Constipation 10/03/22 [History Last Taken Unknown] magnesium hydroxide 400 mg/5 mL oral suspension (Milk of Magnesia) 400 mg PO DAILY PRN Constipation 10/03/22 [History Last Taken Unknown] polyethylene glycol 3350 17 gram/dose oral powder (Miralax) 4 g PO DAILY PRN Constipation 10/11/22 [History Last Taken Unknown] cetirizine 10 mg tablet (Zyrtec) 10 mg PO DAILY ALLERGIES 10/12/22 [History Last Taken 10/11/22] cholecalciferol (vitamin D3) 25 mcg (1,000 unit) tablet 25 mcg PO DAILY SUPPLEMENT 10/12/22 [History Last Taken 10/12/22] cyanocobalamin (vitamin B-12) 500 mcg tablet (Vitamin B-12) 500 mcg PO DAILY SUPPLEMENT 10/12/22 [History Last Taken 10/12/22] hydroxyzine pamoate 25 mg capsule (Vistaril) 25 mg PO Q8H PRN Anxiety 10/12/22 [History Last Taken Unknown] sertraline 100 mg tablet (Zoloft) 100 mg PO QHS DEPRESSION 10/12/22 [History Last Taken 10/11/22] sertraline 25 mg tablet (Zoloft) 25 mg PO DAILY DEPRESSION 10/12/22 [History Last Taken 10/11/22] lorazepam 0.5 mg tablet 0.5 mg PO Q6H PRN Anxiety #4 tabs 10/15/22 [Rx Last Taken Unknown] menthol 0.44 %-zinc oxide 20.6 % topical ointment (Calmoseptine) 1 applic topical BID #0 grams 10/15/22 [Rx Last Taken Unknown] nitroglycerin 0.4 mg sublingual tablet 0.4 mg sublingual Q5M PRN Cardiac/Chest Pain #0 tabs 10/15/22 [Rx Last Taken Unknown] carbamide peroxide 6.5 % ear drops (Debrox) 3 drp otic (ear) DAILY 01/16/23 [History Last Taken Unknown] gabapentin 300 mg capsule 300 mg PO BID 01/16/23 [History Last Taken Unknown] guaifenesin 400 mg tablet 400 mg PO BID 01/16/23 [History Last Taken Unknown] ipratropium 0.5 mg-albuterol 3 mg (2.5 mg base)/3 mL nebulization soln 3 ml inhalation Q4H PRN BREATHING 01/16/23 [History Last Taken Unknown] ipratropium 0.5 mg-albuterol 3 mg (2.5 mg base)/3 mL nebulization soln 3 ml inhalation TID 01/16/23 [History Last Taken Unknown] warfarin 2.5 mg tablet 2.5 mg PO DAILY BLOOD THINNER 01/16/23 [History Last Taken Unknown] dapagliflozin propanediol 10 mg tablet (Farxiga) 10 mg PO DAILY 01/19/23 [History Last Taken Unknown] furosemide 20 mg tablet (Lasix) 40 mg PO DAILY 01/19/23 [History Last Taken Unknown] furosemide 40 mg tablet 60 mg PO DAILY 01/19/23 [History Last Taken Unknown] oxycodone 5 mg capsule 5 mg PO Q6H PRN pain 3 days #12 caps 02/10/23 [Rx Last Taken Unknown] Allergy/AdvReac Type Severity Reaction Status Date / Time Penicillins Allergy Angioedema Verified 02/10/23 17:00 rosiglitazone maleate Allergy hyperglycem Verified 02/10/23 17:00 [From Avandia] ia adhesive tape AdvReac Rash Verified 02/10/23 17:00 cephalexin [From Keflex] AdvReac Diarrhea Verified 02/10/23 17:00 doxycycline AdvReac Diarrhea Verified 02/10/23 17:00 prednisone AdvReac hyperglycem Verified 02/10/23 17:00 ia Sulfa (Sulfonamide AdvReac Itching Verified 02/10/23 17:00 Antibiotics) Family History Sister Lupus Arthritis Brother Colon cancer Cancer Prostate Cancer Arthritis Father Diabetes Heart disease Mother Hypertension Surgical History H/O coronary artery bypass surgery (07/27/20) History of History of cholecystectomy History of coronary artery stent placement History of left heart catheterization (07/19/20) Social History household members: other details: passed 08/2020. housing: residential Smoking Status: Former smoker how long ago did patient quit smokin alcohol intake: never substance use type: does not use caffeine: No what type of physical activity do you participate in: none frequency: does not exercise seatbelt use: always ROS <DAYANA Varma - Last Filed: 02/11/23 20:08> ROS ED Constitutional Constitutional ED: Reports fever(s) Cardiovascular Cardiovascular: Denies chest pain or palpitations Respiratory/Chest Respiratory/Chest: Reports cough; Denies dyspnea, tachypnea or wheezing Gastrointestinal Gastrointestinal: Denies abdominal pain, diarrhea, nausea or vomiting Genitourinary Genitourinary ED: Denies dysuria, hematuria or urinary urgency Musculoskeletal Musculoskeletal: Denies arthralgias or myalgias Integumentary Denies rash Neurologic Neurologic: Denies paresthesias or weakness EXAM <DAYANA Varma - Last Filed: 02/11/23 20:08> Physical Exam Const Vital Signs: 02/10/23 21:00 02/10/23 21:48 02/10/23 22:00 Pulse Rate 84 86 86 Respiratory Rate 16 19 H 18 Blood Pressure 134/99 H 159/77 H 152/79 H Blood Pressure Mean 110 104 103 Pulse Ox 93 93 98 Oxygen Delivery Method Nasal Cannula Nasal Cannula Oxygen Flow Rate (L/min) 2 2 02/10/23 22:53 02/11/23 00:00 Pulse Rate 95 84 Respiratory Rate 18 19 H Blood Pressure 136/52 H Blood Pressure Mean 80 Pulse Ox 17 93 Oxygen Delivery Method Nasal Cannula Nasal Cannula Oxygen Flow Rate (L/min) 2 2 Positive well nourished, well developed and no apparent distress Constitutional Narrative: Pale in appearance. General Appearance ED: well developed HEENT Reports normocephalic and head/scalp atraumatic Mouth ED: Yes moist mucous membranes normal Eyes PERRL and EOMs intact bilaterally Neck full ROM and supple Chest Wall inspection of chest normal Resp normal respiratory effort and clear to auscultation bilaterally Cardio regular rate and regular rhythm GI soft to palpation, non-tender, non-distended and no masses Back/Spine normal ROM and normal to inspection Extremity normal to inspection and full ROM Extremity Narrative: Ecchymosis to the left medial thigh, sensation intact distally. Neuro oriented x3, CN's II-XII intact bilaterally, moves all extremities, no focal motor deficits and no sensory deficits noted Sensorium / Orientation: awake and alert Psych mental status grossly normal and thought process normal <Dr. Ciro Rae MD - Last Filed: 02/10/23 21:21> Physical Exam Const Vital Signs: 02/10/23 21:00 02/10/23 21:48 02/10/23 22:00 Pulse Rate 84 86 86 Respiratory Rate 16 19 H 18 Blood Pressure 134/99 H 159/77 H 152/79 H Blood Pressure Mean 110 104 103 Pulse Ox 93 93 98 Oxygen Delivery Method Nasal Cannula Nasal Cannula Oxygen Flow Rate (L/min) 2 2 02/10/23 22:53 02/11/23 00:00 Pulse Rate 95 84 Respiratory Rate 18 19 H Blood Pressure 136/52 H Blood Pressure Mean 80 Pulse Ox 17 93 Oxygen Delivery Method Nasal Cannula Nasal Cannula Oxygen Flow Rate (L/min) 2 2 [facility] <DAYANA Varma - Last Filed: 02/11/23 20:08> [facility] Narrative Medical decision making narrative: Patient presenting today for evaluation due to appearing pale, being A&O x1 when she is usually A&Ox4, and having a fever. She does have a slight fever at 100.3 ?F, she has been given Tylenol. She was here earlier today for evaluation due to hematoma to her left medial thigh, her INR was found to be elevated and she was given vitamin K and told to hold her Coumadin for the next 3 days. She was ultimately discharged back to her nursing home facility. There was a fall at some point today although the details are not known and patient is not sure how she fell. It is unclear whether or not she hit her head. Given she is on a blood thinner, head CT will be obtained to rule out intracranial bleed. Labs obtained to rule out leukocytosis, anemia, electrolyte abnormality, UTI, and KIT. I will recheck a PT/INR. CT of the chest abdomen and pelvis will be obtained due to patient appearing pale to make sure that she is not losing blood and to rule out any pneumonia and intra-abdominal etiology. CTs overall are unremarkable. She does have an elevated white blood cell count compared to this morning but her H&H appear stable. Her INR is from this morning at 5.2, it was previously 7.3. She does not have a UTI and there is no clear source of infection, I do suspect that she could have a viral infection. On repeat examination she is alert and oriented x4. Her son is in the room and thinks that she is acting, drunk. He reports that she has behaved this way in the past when given narcotics and was given a Percocet around 2 PM this afternoon. He reports that he saw her before 2 PM and she was behaving normally. Lab Data Attestation: I reviewed the patient's lab results. Labs: Laboratory Results - last 24 hr 02/10/23 02/10/23 02/10/23 17:10 17:55 18:22 WBC 15.4 H RBC 3.16 L Hgb 9.5 L Hct 31.5 L MCV 99.7 H MCH 30.1 MCHC 30.2 L RDW Std Deviation 54.2 H RDW Coeff of [place] 14.6 Plt Count 199 MPV 12.5 H Immature Gran % (Auto) 0.800 Neut % (Auto) 76.2 H Lymph % (Auto) 10.0 L Barber % (Auto) 10.2 H Eos % (Auto) 2.5 Baso % (Auto) 0.3 Absolute Neuts (auto) 11.7 H Absolute Lymphs (auto) 1.54 Nucleated RBC % 0 Differential Comment SEE COMMENT Diff Path Review May foll Platelet Estimate ADEQUATE RBC Morphology N CHROM Anisocytosis RARE Macrocytosis RARE PT 49.0 H INR 5.2 H* Sodium 141 Potassium 4.7 Chloride 102 Carbon Dioxide 37.0 H Anion Gap 2 L BUN 59 H Creatinine 2.34 H Estim Creat Clear Calc 17.83 Est GFR (MDRD) Af Amer 26 L Est GFR (MDRD) Non-Af 21 L BUN/Creatinine Ratio 25.2 H Glucose 165 H Calcium 8.9 Urine Color Yellow Urine Clarity Clear Urine pH 6.0 Ur Specific [place] 1.020 Urine Protein Negative Urine Glucose (UA) 250 H Urine Ketones Negative Urine Occult Blood Negative Urine Nitrite Negative Urine Bilirubin Negative Urine Urobilinogen Normal Ur Leukocyte Esterase Negative Urine RBC 0 SEEN Urine WBC 0 SEEN Ur Squamous Epith Cells 0 SEEN Urine Bacteria 0 SEEN Urine Mucus 0 SEEN Blood Type A POSITIVE Antibody Screen NEGATIVE Radiography X-Ray: Read by ED Physician and Read by Radiologist Diagnostic Testing: Clinical Impression(s) from Imaging Studies Brain CT 02/10/23 17:17 IMPRESSION: Involutional changes, otherwise normal CT scan of the brain for age. Electronically Signed: Jovita Atkinson MD at 18:33 EDT , Chest/Abdomen/Pelvis CT 02/10/23 17:32 IMPRESSION: CT CHEST: Possible small airway disease, otherwise no acute process within the chest. Specifically, no evidence of intrathoracic injury. No pleural effusion or pneumothorax. CT abdomen and pelvis: No evidence of visceral or intra-abdominal injury. Intramuscular bruising/hematoma involving the medial aspect of the left upper thigh. Electronically Signed: Jovita Atkinson MD at 19:02 EDT , <Dr. iCro Rae MD - Last Filed: 02/10/23 21:21> [facility] Lab Data Labs: Laboratory Results - last 24 hr 02/10/23 02/10/23 02/10/23 17:10 17:55 18:22 WBC 15.4 H RBC 3.16 L Hgb 9.5 L Hct 31.5 L MCV 99.7 H MCH 30.1 MCHC 30.2 L RDW Std Deviation 54.2 H RDW Coeff of [place] 14.6 Plt Count 199 MPV 12.5 H Immature Gran % (Auto) 0.800 Neut % (Auto) 76.2 H Lymph % (Auto) 10.0 L Barber % (Auto) 10.2 H Eos % (Auto) 2.5 Baso % (Auto) 0.3 Absolute Neuts (auto) 11.7 H Absolute Lymphs (auto) 1.54 Nucleated RBC % 0 Differential Comment SEE COMMENT Diff Path Review May foll Platelet Estimate ADEQUATE RBC Morphology N CHROM Anisocytosis RARE Macrocytosis RARE PT 49.0 H INR 5.2 H* Sodium 141 Potassium 4.7 Chloride 102 Carbon Dioxide 37.0 H Anion Gap 2 L BUN 59 H Creatinine 2.34 H Estim Creat Clear Calc 17.83 Est GFR (MDRD) Af Amer 26 L Est GFR (MDRD) Non-Af 21 L BUN/Creatinine Ratio 25.2 H Glucose 165 H Calcium 8.9 Urine Color Yellow Urine Clarity Clear Urine pH 6.0 Ur Specific [place] 1.020 Urine Protein Negative Urine Glucose (UA) 250 H Urine Ketones Negative Urine Occult Blood Negative Urine Nitrite Negative Urine Bilirubin Negative Urine Urobilinogen Normal Ur Leukocyte Esterase Negative Urine RBC 0 SEEN Urine WBC 0 SEEN Ur Squamous Epith Cells 0 SEEN Urine Bacteria 0 SEEN Urine Mucus 0 SEEN Blood Type A POSITIVE Antibody Screen NEGATIVE Radiography Diagnostic Testing: Clinical Impression(s) from Imaging Studies Brain CT 02/10/23 17:17 IMPRESSION: Involutional changes, otherwise normal CT scan of the brain for age. Electronically Signed: Jovita Atkinson MD at 18:33 EDT , Chest/Abdomen/Pelvis CT 02/10/23 17:32 IMPRESSION: CT CHEST: Possible small airway disease, otherwise no acute process within the chest. Specifically, no evidence of intrathoracic injury. No pleural effusion or pneumothorax. CT abdomen and pelvis: No evidence of visceral or intra-abdominal injury. Intramuscular bruising/hematoma involving the medial aspect of the left upper thigh. Electronically Signed: Jovita Atkinson MD at 19:02 EDT , Treatment and Re-Evaluation :: I have personally performed a face to face assessment of the patient and have reviewed the LORETTA Note. I performed a substantive portion of the visit including all aspects of the following. My navarrete findings include: History: Patient returns with left leg pain. The history is a little bit variable. It sounds like this morning there may or may not have been a fall known. But now there is a report of a fall although the details are unclear. No reported hitting her head. Patient also has a slight fever. She was seen had a high INR. Vitamin K was given. I am not getting reports that the bruising is worse. The patient does admit to having COVID about a month ago. She admits to knowing she has had a fever for a few days but she denies symptoms to me. But she tells other people she has had a cough. She denies urinary symptoms. She has no abdominal pain diarrhea nausea or vomiting. She has not seen blood in stool. No epistaxis. She states she has been on Coumadin for almost her whole life due to clotting problems in her legs. For me she is ANO to person and place. She states she does not worry about the date. Exam: When I walk in the room patient is notably pale. Conjunctive is pale. Mucous membranes are minimally dry. Breath sounds show some mild coarse sounds but no wheezing. She has some borderline oxygenation. But even on her oxygen her saturations will occasionally had 88% but then will go back up to 91 or 92%. Heart is regular. She has had prior median sternotomy. She states this was bypass surgery and not valve surgery. Her abdomen is not tender. Extremities do show bruising mostly on the proximal medial thigh and in the dorsal thigh. She has a scar on the medial thigh that she states was from surgery because her blood vessels did not let enough blood go to her leg. Medical Decision Making: With her second visit, we will do more comprehensive work-up. This hematoma on the leg does not look so bad that it would drop her hemoglobins. We talked with the EMS and they felt that the patient looks paler than she did this morning. I will scan her chest abdomen pelvis to look for other signs of acute blood loss. She is not having symptoms in these areas though. I will not use contrast because patient has chronic kidney disease. Patient CBC shows slight rise of her white count which is nonspecific. Hemoglobin basically stable. Patient's INR is down. She received 10 mg of vitamin K on her visit last night. Her INR should continue to drop. Patient's electrolytes showed mild elevation in the creatinine but she has been higher in the past. Son and [id number] came in. Son thought she was totally normal today about 2:00. As he was leaving, the nurses were going to give her Percocet. He is a little concerned because she has had reaction to pain meds where she has gotten very confused. He states when he showed up. First she was confused but she is getting a lot better now. She is actually ANO x4 at this time and is a pretty good informant. Her only complaint is that she wants something to drink like water. Her son states she drinks water all the time. This is normal. I rechecked her hematoma there is no indication of change. My independent interpretation the patient's CT of the head, chest abdomen and pelvis they are not showing acute process. This is overall consistent with radiology's read. They do show some changes in the chest but patient just got out of quarantine for COVID 4 days ago. She still has a cough. I think her slight temperature here may be due to COVID, other viral illness, or the hematoma can also call this. Her color actually looks much better now 2. I do not have a reason to keep her in the hospital at this time. I think following her hemoglobin and INR as an outpatient is appropriate. But she has stable hemoglobin since last night. There is no indication of further bleeding. Discharge Plan Triage Chief Complaint: Fall ED Midlevel Provider: Marguerite Harmon ED Provider: Ciro Rae Dx/Rx/DC Orders Clinical Impression: History of COVID-19, Hematoma of left thigh, Medication reaction, Elevated temperature, Warfarin-induced coagulopathy Instructions: ED Contusion, Lower Extremity Prescriptions: No Action (DME) pen needle, diabetic [BD Ultra-Fine Kaylyn Pen Needle] 32 gauge x 5/32 needle See Rx Instructions .ROUTE .MEDSUPPLY Qty: 100 5RF Rx Instructions: 4 times daily (DME) FreeStyle Sharita 2 [place] Misc See Rx Instructions .ROUTE .MEDSUPPLY Qty: 1 0RF Rx Instructions: As directed (DME) FreeStyle Sharita 2 Sensor Kit See Rx Instructions .ROUTE .MEDSUPPLY Qty: 2 12RF Rx Instructions: As directed acetaminophen 325 mg tablet 650 mg PO Q4H PRN (Reason: Pain) aspirin [Adult Low Dose Aspirin] 81 mg tablet,delayed release (DR/EC) 81 mg PO DAILY atorvastatin 40 mg tablet 40 mg PO QHS insulin lispro 100 unit/mL insulin pen See Protocol SC ACHS Protocol: 6. Sliding Scale Insulin Custom Condition: mg/dl range Dose/Route: Number of Units Condition: 151-200 Dose/Route: 2 Condition: 201-250 Dose/Route: 4 Condition: 251-300 Dose/Route: 6 Condition: 301-350 Dose/Route: 8 Condition: 351-400 Dose/Route: 10 Condition: >401 Dose/Route: 12 Instruction: CALL MD Protocol Text: Custom Sliding Scale Rx Instructions: sliding scale subcut before meals; fenofibrate 160 mg tablet 160 mg PO DAILY Senna Plus 8.6-50 mg capsule 1 tab-cap PO BID PRN (Reason: Constipation) polyethylene glycol 3350 [Miralax] 17 gram/dose powder 4 g PO DAILY PRN (Reason: Constipation) ferrous sulfate 325 mg (65 mg iron) tablet 325 mg PO BID insulin glargine [Lantus U-100 Insulin] 100 unit/mL solution 32 unit subcut QAM montelukast 10 mg tablet 10 mg PO DAILY ascorbic acid (vitamin C) 500 mg tablet 500 mg PO BID Debrox 6.5 % drops 3 drp otic (ear) DAILY Rx Instructions: for 2 weeks warfarin 2.5 mg tablet 2.5 mg PO DAILY Rx Instructions: TAKE ON SUNDAY, SUNDAY & SUNDAY gabapentin 300 mg capsule 300 mg PO BID guaifenesin 400 mg tablet 400 mg PO BID ipratropium-albuterol 0.5 mg-3 mg(2.5 mg base)/3 mL solution for nebulization 3 ml inhalation Q4H PRN (Reason: BREATHING) ipratropium-albuterol 0.5 mg-3 mg(2.5 mg base)/3 mL solution for nebulization 3 ml inhalation TID Farxiga 10 mg tablet 10 mg PO DAILY furosemide [Lasix] 20 mg tablet 40 mg PO DAILY furosemide 40 mg tablet 60 mg PO DAILY famotidine 20 MG tablet 20 mg PO BID Lantus Solostar U-100 Insulin 100 unit/mL (3 mL) insulin pen 25 unit SC QHS carvedilol 6.25 mg Tablet 6.25 mg PO BID magnesium hydroxide [Milk of Magnesia] 400 mg/5 mL Suspension 400 mg PO DAILY PRN (Reason: Constipation) bisacodyl [Dulcolax (bisacodyl)] 10 mg Suppository 10 mg DC DAILY PRN (Reason: Constipation) cetirizine [Zyrtec] 10 mg Tablet 10 mg PO DAILY sertraline [Zoloft] 100 mg Tablet 100 mg PO QHS cyanocobalamin (vitamin B-12) [Vitamin B-12] 500 mcg Tablet 500 mcg PO DAILY sertraline [Zoloft] 25 mg Tablet 25 mg PO DAILY cholecalciferol (vitamin D3) 25 mcg (1,000 unit) Tablet 25 mcg PO DAILY hydroxyzine pamoate [Vistaril] 25 mg Capsule 25 mg PO Q8H PRN (Reason: Anxiety) nitroglycerin 0.4 mg Tablet, Sublingual 0.4 mg sublingual Q5M PRN (Reason: Cardiac/Chest Pain) Qty: 0 0RF menthol-zinc oxide [Calmoseptine] 0.44-20.6 % Ointment 1 applic topical BID Qty: 0 0RF Protocol: *Topical Application Instructions APPLICATION INSTRUCTIONS: groin lorazepam 0.5 mg Tablet 0.5 mg PO Q6H PRN (Reason: Anxiety) Qty: 4 0RF oxycodone 5 mg capsule 5 mg PO Q6H PRN (Reason: pain) 3 Days Qty: 12 0RF (DME) FreeStyle Precision Richardson Strips Strip See Rx Instructions .ROUTE .MEDSUPPLY Qty: 50 6RF Rx Instructions: As directed Primary Care Provider: Rufus Blanco Referrals: Rufus Blanco DO [Primary Care Provider] - 1 Day for another exam Activity Restrictions/Additional Instructions: Recommend repeat hemoglobin and INR to powder carrier further reinitiation of Coumadin therapy. Disposition Disposition: Senior Care Facility Discharge Location: [facility] Discharge Date/Time: 02/11/23 00:55
[2023-02-10 17:20] LABS: Absolute Lymphocyte Count 1.54 X10^3/uL (0.83-4.51); Absolute Neutrophil Count 11.7 X10^3/uL (2.0-7.7); Basophil# 0.05 X10^3/uL; Basophil% 0.3 % (0-1); Eosinophil# 0.39 X10^3/uL; Eosinophils% 2.5 % (0-5); Hematocrit 31.5 % (37-47); Hemoglobin 9.5 g/dL (12.0-15.0); Lymphocyte # 1.54 X10^3/ul (0.83-4.51); Mean Corp Hgb Conc 30.2 g/dL (32-36); Mean Corpuscular Hgb 30.1 pg (27.0-32.0); Mean Corpuscular Volume 99.7 fL (81-99); Mean Platelet Vol. 12.5 fl (6.2-12.0); Monocyte# 1.57 X10^3/uL; Monocyte% 10.2 % (0-10); NRBC Flagged by Analyzer 0 % (0-5); Neutrophil % 76.2 % (47-70); POSITIVE DIFFERENTIAL YES; Platelet Count 199 K/mm3 (150-450); RBC Distribution Width CV 14.6 % (11.6-14.6); RBC Distribution Width SD 54.2 fl (35.1-43.9); Red Blood Count 3.16 M/mm3 (4.2-5.4); White Blood Count 15.4 K/mm3 (4.4-11.0)
--- NOTE | 2023-02-10 17:32 | CT_ITS ---
STUDY: CT CHEST, ABDOMEN T PELVIS WITHOUT CONTRAST REASON FOR EXAM: Female, 77 years old. trauma RADIATION DOSAGE (If Supplied By Facility): CTDIvol = ( 25.69 ) mGy, DLP = ( 2134.43 ) mGycm TECHNIQUE: Transaxial imaging was performed without the administration of intravenous contrast material. Multiplanar coronal and sagittal images were reformatted. Individualized dose optimization techniques were used for this CT. COMPARISON: No relevant priors. FINDINGS: CHEST Mild scattered mosaic pattern throughout the lung ortiz which may indicate small airway disease. Otherwise lung parenchyma is clear. There is no demonstrated pleural abnormality. Mild cardiomegaly with midline sternotomy wires and likely prior CABG repair. Coronary artery calcifications noted. Normal mediastinum. Normal hilar regions. Normal unenhanced pulmonary arteries. There is atherosclerotic calcification of the aortic arch with tortuosity and elongation of the aortic arch and descending thoracic aorta. Degenerative disease throughout the thoracic spine The upper abdominal anatomy is described indeterminant accompanying CT of the abdomen report. ABDOMEN Lung bases as described above. Postoperative changes of the heart as described with cardiomegaly. Normal liver. The gallbladder is contracted. Normal spleen. Normal pancreas. Normal bilateral adrenal glands. Right lower renal pole simple cyst measuring 3.7 cm. Otherwise normal right kidney. Normal left kidney. Normal visualized stomach. Normal small intestine. There are multiple colonic diverticula consistent with diverticulosis. There is non-visualization of the appendix. There is diffuse atherosclerotic calcification of the abdominal aorta with elongation and tortuosity, but without a demonstrated aneurysm. Normal inferior vena cava. Normal retroperitoneum. Normal abdominal wall. Possible diffuse osteopenia. Multilevel degenerative disease of the spine. PELVIS Normal urinary bladder. The uterus is anteverted with bulbous appearance which may indicate small uterine fibroid. There is small amount of air identified within the central portion of the uterus, presumed endometrial cavity which may indicate sequela of recent procedure. Normal visualized small intestine. There are multiple colonic diverticula of the sigmoid colon consistent with chronic diverticulosis. There is no pelvic fluid. There is no pelvic lymphadenopathy or mass lesion. There is diffuse atherosclerotic calcification of the pelvic arteries. Normal abdominal wall. Degenerative disease of the lumbar spine and bilateral SI joints. No distinct fracture seen. There is high density stranding with enlargement of the musculature medial to the upper thigh concerning for intramuscular hematoma. CT/CT Chest, Abd, Pelvis WO Cont IMPRESSION: CT CHEST: Possible small airway disease, otherwise no acute process within the chest. Specifically, no evidence of intrathoracic injury. No pleural effusion or pneumothorax. CT abdomen and pelvis: No evidence of visceral or intra-abdominal injury. Intramuscular bruising/hematoma involving the medial aspect of the left upper thigh. Electronically Signed: Jovita Atkinson MD at 19:02 EDT ,
[2023-02-10 17:35] LABS: Differential Indicated SCAN CRITERIA MET
[2023-02-10 17:42] LABS: International Normalized Ratio 5.2
[2023-02-10 17:48] LABS: Anisocytosis RARE; Macrocytosis RARE; Platelet Estimate ADEQUATE (ADEQ); Red Cell Morphology N CHROM NORMAL (NORM C&C)
[2023-02-10 17:50] LABS: Anion Gap 2 (5-15); BUN 59 mg/dL (7-18); BUN/Creat Ratio 25.2 RATIO (10-20); Calcium,Total 8.9 mg/dL (8.5-10.1); Chloride 102 mmol/L (98-107); Creatinine, Serum 2.34 mg/dL (0.55-1.02); EST Glomerular Filtration Rate 21 mL/min (>60); Est Glom Filt Rate - Afr Amer 26 mL/min (>60); Estimated Creatinine Clearance 17.83 ml/min; Glucose 165 mg/dL (74-106); Potassium 4.7 mmol/L (3.5-5.1); Sodium Level 141 mmol/L (136-145)
[2023-02-10] MEDS: Ondansetron 4 MG/2 ML Vial IV (18:03)
--- NOTE | 2023-02-10 18:18 | CM.ED ---
Social Work SW performed chart review; LW and HCPOA documents on file as of 2020. Patient's HCPOA is patient's sonGary and alternates are patient's son Ji and daughter Caitlin. Lilian García MSW, KATHIE
[2023-02-10 18:25] LABS: Bacteria 0 SEEN /hpf (None Seen); Mucous, Urine 0 SEEN /hpf (<or=2+); Red Blood Cells-Urine 0 SEEN /hpf (0-5); Squamous Epithelial Cells - UA 0 SEEN /hpf (5-10); White Blood Cells 0 SEEN /hpf (0-5)
[2023-02-10 18:28] LABS: Color, Urine Yellow (Yellow); Glucose, Dipstick 250 mg/dl (Normal); Ketone-Dipstick Negative (Negative); Leukocyte Esterase-Dipstick Negative /ul (Negative); Nitrite-Dipstick Negative (Negative); Occult Blood-Urine Negative /ul (Negative); Protein-Dipstick Negative (Negative); Urine Bilirubin Dipstick Negative (Negative); Urine Clarity Clear (Clear); Urine Urobilinogen Normal (Normal)
[2023-02-11] VITALS: PULSE 84; RESP 19; O2SAT 93
[2023-02-13 09:50] LABS: Pathologist Review Reviewed
== END 2023-02-11 00:55 | disposition skilled nursing facility (03) ==
PROVIDERS: Physician Assistant; Emergency Provider Emergency Medicine; PCP Family Medicine; Visit Provider Emergency Medicine
DX: R50.9 Fever, unspecified (principal); J44.1 Chronic obstructive pulmonary disease with (acute) exacerbation; I13.0 Hypertensive heart and chronic kidney disease with heart failure and stage 1 through stage 4 chronic kidney disease, or unspecified chronic kidney disease; I42.9 Cardiomyopathy, unspecified; I50.9 Heart failure, unspecified; E11.22 Type 2 diabetes mellitus with diabetic chronic kidney disease; D68.32 Hemorrhagic disorder due to extrinsic circulating anticoagulants; Z87.891 Personal history of nicotine dependence; J44.89 Other specified chronic obstructive pulmonary disease; E78.5 Hyperlipidemia, unspecified; I25.10 Atherosclerotic heart disease of native coronary artery without angina pectoris; S70.12XD Contusion of left thigh, subsequent encounter; I25.2 Old myocardial infarction; Z86.718 Personal history of other venous thrombosis and embolism; W19.XXXD Unspecified fall, subsequent encounter; T45.515A Adverse effect of anticoagulants, initial encounter
CPT/HCPCS: 70450; 71250; 74176; 80048; 81001; 85025; 85610; 86850; 86900; 86901; 96374; 99284; A4216; J2405

== ENCOUNTER 2023-09-06 07:36 | Emergency (ER) | payer MEDICARE, MEDICAID, SELFPAY ==
[2023-09-06 07:36] VITALS: BP 136/65; BP 141/31; PULSE 65; PULSE 68; RESP 14; RESP 16; TEMP 36.6; O2SAT 95; O2SAT 98; BMI 37.1
[2023-09-06 07:42] VITALS: O2SAT 95
--- NOTE | 2023-09-06 08:06 | CT_ITS ---
STUDY: CT CERVICAL SPINE WITHOUT CONTRAST REASON FOR EXAM: Female, 78 years old. Trauma due to a fall. RADIATION DOSAGE (If Supplied By Facility): CTDIvol = ( 18.37 ) mGy, DLP = ( 363.06 ) mGycm TECHNIQUE: High resolution transaxial imaging was performed without contrast material. Sagittal and coronal images were reconstructed. Individualized dose optimization techniques were used for this CT. COMPARISON: None FINDINGS: Normal craniovertebral junction. There are degenerative changes of the anterior atlantoaxial articulation. Normal odontoid process. There is straightening of the normal cervical lordosis. Spondylosis at the C5-C6 level. C2-3: Normal endplates. Normal disc height and morphology. Normal central canal and intervertebral neuroforamina. C3-4: Normal endplates. Normal disc height and morphology. Normal central canal and intervertebral neuroforamina. C4-5: Facet joint osteoarthritis and hypertrophy worse on the right side. Uncovertebral arthrosis. Bilateral neural foraminal stenosis right greater than left. C5-6: Marked degree of disc space narrowing. Spondylosis. Uncovertebral arthrosis. Moderate degree of bilateral neural foraminal stenosis. C6-7: Mild degree of disc space narrowing. Spondylosis. Uncovertebral arthrosis is worse on the left side with a moderate left neural foraminal stenosis. C7-T1: Normal endplates. Normal disc height and morphology. Normal central canal and intervertebral neuroforamina. Calcification of the vertebral arteries. CT/Spine Cervical without Contras IMPRESSION: Multilevel degenerative changes, as described above. Electronically Signed: Ketan Price MD at 9:01 EDT ,
--- NOTE | 2023-09-06 08:06 | CT_ITS ---
STUDY: CT BRAIN WITHOUT CONTRAST REASON FOR EXAM: Female, 78 years old. Trauma due to a fall. RADIATION DOSAGE (If Supplied By Facility): CTDIvol = ( 47.06 ) mGy, DLP = ( 855.03 ) mGycm TECHNIQUE: Transaxial CT imaging of the brain was performed without administration of intravenous contrast material. Individualized dose optimization techniques were used for this CT. COMPARISON: Comparison is made with prior study dated February 10, 2023. FINDINGS: Normal soft tissue structures. Normal calvarium. There is mild cerebral atrophy with widening of the extra-axial spaces and ventricular dilatation. Normal white matter tracts of the cerebral hemispheres. There are small punctate calcifications of the basal ganglia which are seen in the aging brain as a normal variant. Normal brainstem. Normal cerebellum. There is no intracranial hemorrhage. There are no findings of an acute ischemic infarction. There is calcification of the vertebral arteries and cavernous portions of the internal carotid arteries bilaterally. Normal visualized paranasal sinuses. CT/Brain/Head without Contrast IMPRESSION: Chronic involutional changes of the brain. Electronically Signed: Ketan Price MD at 8:59 EDT ,
--- NOTE | 2023-09-06 08:09 | EDS_ITS ---
HPI History of Present Illness Chief Complaint: Head Injury Informant: patient Onset/Context/Timing Onset: Today Narrative Narrative: Patient presents from [facility] secondary to a fall. She states she got up around 530 this morning to go to the bathroom. She reached for the bedside table to support herself but it was on wheels and slid out from beneath her causing her to fall. She has slight bruising noted just lateral to her left eye. She is on Coumadin. Her INR was checked 2 days ago and was 2.3. She denies loss of consciousness. She has mild right-sided neck pain. [facility] Medical History (Updated 09/06/23 @ 09:[address] Elba Shook MD) Allergic rhinitis Anemia Anxiety disorder Asthma Atherosclerotic heart disease of [place] coronary artery without angina pectoris Cardiomyopathy, ischemic Chest pain Chronic renal failure, stage 3 (moderate) Congestive heart failure (CHF) COPD (chronic obstructive pulmonary disease) Debility Depression Diabetes mellitus, type 2 DVT (deep venous thrombosis) DVT of lower extremity (deep venous thrombosis) (2012) Essential hypertension Former smoker Gastroesophageal reflux disease with hiatal hernia History of non-ST elevation myocardial infarction (NSTEMI) (07/13/20) Hyperlipidemia Hypertension Kidney disease Left bundle branch block Lung nodule Menieres disease Myocardial infarct Obesity (BMI 30-39.9) On home oxygen therapy Pulmonary edema Rheumatoid arthritis Stage 2 moderate COPD by GOLD classification Home Medications famotidine 20 mg tablet 20 mg PO BID stomach 08/14/15 [History Last Taken 10/12/22] flash glucose scanning reader (FreeStyle Sharita 2 Harvey) #1 ea 01/29/20 [Rx Last Taken Unknown] flash glucose sensor (FreeStyle Sharita 2 Sensor kit) #2 ea 01/29/20 [Rx Last Taken Unknown] pen needle, diabetic 32 gauge x 5/32 (BD Ultra-Fine Kaylyn Pen Needle) #100 ea 01/29/20 [Rx Last Taken Unknown] blood sugar diagnostic (FreeStyle Precision Richardson Strips) #50 ea 01/30/20 [Rx Last Taken Unknown] acetaminophen 325 mg tablet 650 mg PO Q4H PRN Pain 08/17/20 [History Last Taken Unknown] aspirin 81 mg tablet,delayed release (Adult Low Dose Aspirin) 81 mg PO DAILY 08/17/20 [History Last Taken 10/12/22] atorvastatin 40 mg tablet 40 mg PO QHS 08/17/20 [History Last Taken 10/11/22] fenofibrate 160 mg tablet 160 mg PO DAILY 08/17/20 [History Last Taken 10/12/22] insulin lispro 100 unit/mL subcutaneous pen See Protocol subcut ACHS 08/17/20 [History Last Taken 10/11/22] carvedilol 6.25 mg tablet 6.25 mg PO BID 10/24/20 [History Last Taken 10/12/22] ascorbic acid (vitamin C) 500 mg tablet 500 mg PO BID 09/04/22 [History Last Taken 10/11/22] ferrous sulfate 325 mg (65 mg iron) tablet 325 mg PO BID 09/04/22 [History Last Taken 10/12/22] insulin glargine 100 unit/mL subcutaneous solution (Lantus U-100 Insulin) 32 unit subcut QAM 09/04/22 [History Last Taken 10/11/22] montelukast 10 mg tablet 10 mg PO DAILY 09/04/22 [History Last Taken 10/12/22] sennosides 8.6 mg-docusate sodium 50 mg capsule (Senna Plus) 1 tab-cap PO BID PRN Constipation 09/04/22 [History Last Taken Unknown] bisacodyl 10 mg rectal suppository (Dulcolax (bisacodyl)) 10 mg NJ DAILY PRN Constipation 10/03/22 [History Last Taken Unknown] magnesium hydroxide 400 mg/5 mL oral suspension (Milk of Magnesia) 400 mg PO DAILY PRN Constipation 10/03/22 [History Last Taken Unknown] cholecalciferol (vitamin D3) 25 mcg (1,000 unit) tablet 25 mcg PO DAILY SUPPLEMENT 10/12/22 [History Last Taken 10/12/22] cyanocobalamin (vitamin B-12) 500 mcg tablet (Vitamin B-12) 500 mcg PO DAILY SUPPLEMENT 10/12/22 [History Last Taken 10/12/22] hydroxyzine pamoate 25 mg capsule (Vistaril) 25 mg PO Q8H PRN Anxiety 10/12/22 [History Last Taken Unknown] menthol 0.44 %-zinc oxide 20.6 % topical ointment (Calmoseptine) 1 applic topical BID #0 grams 10/15/22 [Rx Last Taken Unknown] nitroglycerin 0.4 mg sublingual tablet 0.4 mg sublingual Q5M PRN Cardiac/Chest Pain #0 tabs 10/15/22 [Rx Last Taken Unknown] gabapentin 300 mg capsule 300 mg PO BID 01/16/23 [History Last Taken Unknown] ipratropium 0.5 mg-albuterol 3 mg (2.5 mg base)/3 mL nebulization soln 3 ml inhalation Q4H PRN BREATHING 01/16/23 [History Last Taken Unknown] ipratropium 0.5 mg-albuterol 3 mg (2.5 mg base)/3 mL nebulization soln 3 ml inhalation TID 01/16/23 [History Last Taken Unknown] dapagliflozin propanediol 10 mg tablet (Farxiga) 10 mg PO DAILY 01/19/23 [History Last Taken Unknown] cefdinir 300 mg capsule 300 mg PO DAILY 05/25/23 [History Last Taken Unknown] cetirizine 10 mg tablet (Zyrtec) 5 mg PO DAILY ALLERGIES 05/25/23 [History Last Taken Unknown] furosemide 20 mg tablet (Lasix) 40 mg PO QPM 05/25/23 [History Last Taken Unknown] furosemide 40 mg tablet 60 mg PO QAM 05/25/23 [History Last Taken Unknown] lidocaine HCl 4 % topical cream (Aspercreme (lidocaine HCl)) 1 applic topical Q4H PRN 05/25/23 [History Last Taken Unknown] polyethylene glycol 3350 17 gram/dose oral powder (Miralax) 17 g PO DAILY PRN Constipation 05/25/23 [History Last Taken Unknown] sertraline 100 mg tablet (Zoloft) See Rx Instructions PO QHS DEPRESSION 05/25/23 [History Last Taken Unknown] sertraline 25 mg tablet (Zoloft) See Rx Instructions PO QHS DEPRESSION 05/25/23 [History Last Taken Unknown] tramadol 50 mg tablet 50 mg PO Q6H PRN 05/25/23 [History Last Taken Unknown] warfarin 2 mg tablet 2 mg PO .COMPLEX 05/25/23 [History Last Taken Unknown] insulin glargine 100 unit/mL (3 mL) subcutaneous pen (Lantus Solostar U-100 Insulin) 30 unit subcut QHS diabetes 07/24/23 [History Last Taken Unknown] lorazepam 0.5 mg tablet 0.25 mg PO QHS Anxiety 07/24/23 [History Last Taken Unknown] warfarin 1 mg tablet 1 mg PO QDAY 07/24/23 [History Last Taken Unknown] sertraline 50 mg tablet 50 mg PO DAILY 09/06/23 [History Last Taken Unknown] warfarin 3 mg tablet PO 09/06/23 [History Last Taken Unknown] Allergy/AdvReac Type Severity Reaction Status Date / Time Penicillins Allergy Angioedema Verified 09/06/23 07:40 rosiglitazone maleate Allergy hyperglycem Verified 09/06/23 07:40 [From Avandia] ia adhesive tape AdvReac Rash Verified 09/06/23 07:40 cephalexin [From Keflex] AdvReac Diarrhea Verified 09/06/23 07:40 doxycycline AdvReac Diarrhea Verified 09/06/23 07:40 prednisone AdvReac hyperglycem Verified 09/06/23 07:40 ia Sulfa (Sulfonamide AdvReac Itching Verified 09/06/23 07:40 Antibiotics) Family History Sister Lupus Arthritis Brother Colon cancer Cancer Prostate Cancer Arthritis Father Diabetes Heart disease Mother Hypertension Surgical History H/O coronary artery bypass surgery (07/27/20) History of History of cholecystectomy History of coronary artery stent placement History of left heart catheterization (07/19/20) Social History household members: other details: passed 08/2020. housing: custodial Smoking Status: Former smoker how long ago did patient quit smokin alcohol intake: never substance use type: does not use caffeine: No what type of physical activity do you participate in: none frequency: does not exercise seatbelt use: always ROS ROS ED Constitutional Constitutional ED: Denies chills or fever(s) Eyes Eyes: Denies change in vision ENT ENT ED: Denies rhinorrhea Cardiovascular Cardiovascular: Denies chest pain or palpitations Respiratory/Chest Respiratory/Chest: Denies cough or dyspnea Gastrointestinal Gastrointestinal: Denies abdominal pain, diarrhea or vomiting Musculoskeletal Musculoskeletal: Reports neck pain Integumentary Reports other Details: Ecchymosis left pentecostal Neurologic Neurologic: Denies headache(s) EXAM Physical Exam Const Vital Signs: 09/06/23 07:36 09/06/23 07:42 09/06/23 07:36 Temperature 98 F Temperature Source Temporal Pulse Rate 68 65 Respiratory Rate 14 16 Respiratory Effort Normal Blood Pressure 141/31 H 136/65 H Blood Pressure Mean 67 88 Pulse Ox 98 95 95 Oxygen Delivery Method Nasal Cannula Nasal Cannula Nasal Cannula Oxygen Flow Rate (L/min) 2 2 2 Positive well nourished and well developed General Appearance ED: well developed HEENT HEENT Narrative: 2 small areas of ecchymosis just lateral to the left eye. No bony tenderness. No full-thickness laceration. Eyes EOMs intact bilaterally Chest Wall inspection of chest normal and palpation of chest normal Resp normal respiratory effort and clear to auscultation bilaterally Cardio regular rhythm Rate: regular rate GI non-tender Palpation: soft Back/Spine Back/Spine Narrative: Mild right cervical paraspinal tenderness. No midline cervical tenderness. Extremity normal to inspection Neuro oriented x3 and moves all extremities Psych mental status grossly normal MDM MDM MDM Narrative Medical decision making narrative: CT scan of the head and C-spine obtained to evaluate for fracture, bleed. Radiography Diagnostic Testing: Clinical Impression(s) from Imaging Studies Brain CT 09/06/23 08:06 IMPRESSION: Chronic involutional changes of the brain. Electronically Signed: Ketan Price MD at 8:59 EDT , Cervical Spine CT 09/06/23 08:06 IMPRESSION: Multilevel degenerative changes, as described above. Electronically Signed: Ketan Price MD at 9:01 EDT , Treatment and Re-Evaluation Narrative: CT scan of the head reveals chronic involutional changes. CT the C-spine reveals multilevel degenerative changes. With patient having a recent INR checked that was in the therapeutic range and do not think this needs to be repeated. Patient is stable for discharge back to her [facility]. She was observed ambulating to the restroom and back with her walker without difficulty. Discharge Plan Triage Chief Complaint: Head Injury ED Provider: Elba Shook Dx/Rx/DC Orders Clinical Impression: Fall, Contusion of head Instructions: ED Scalp Contusion, ED Fall with Uncertain Cause, ED Head Injury (Adult) Prescriptions: No Action (DME) pen needle, diabetic [BD Ultra-Fine Kaylyn Pen Needle] 32 gauge x 5/32 needle See Rx Instructions .ROUTE .MEDSUPPLY Qty: 100 5RF Rx Instructions: 4 times daily (DME) FreeStyle Sharita 2 Harvey Misc See Rx Instructions .ROUTE .MEDSUPPLY Qty: 1 0RF Rx Instructions: As directed (DME) FreeStyle Sharita 2 Sensor Kit See Rx Instructions .ROUTE .MEDSUPPLY Qty: 2 12RF Rx Instructions: As directed acetaminophen 325 mg tablet 650 mg PO Q4H PRN (Reason: Pain) aspirin [Adult Low Dose Aspirin] 81 mg tablet,delayed release (DR/EC) 81 mg PO DAILY atorvastatin 40 mg tablet 40 mg PO QHS insulin lispro 100 unit/mL insulin pen See Protocol [facility] Protocol: 6. Sliding Scale Insulin Custom Condition: mg/dl range Dose/Route: Number of Units Condition: 151-200 Dose/Route: 2 Condition: 201-250 Dose/Route: 4 Condition: 251-300 Dose/Route: 6 Condition: 301-350 Dose/Route: 8 Condition: 351-400 Dose/Route: 10 Condition: >401 Dose/Route: 12 Instruction: CALL MD Protocol Text: Custom Sliding Scale Rx Instructions: sliding scale subcut before meals; fenofibrate 160 mg tablet 160 mg PO DAILY Senna Plus 8.6-50 mg capsule 1 tab-cap PO BID PRN (Reason: Constipation) polyethylene glycol 3350 [Miralax] 17 gram/dose powder 17 g PO DAILY PRN (Reason: Constipation) ferrous sulfate 325 mg (65 mg iron) tablet 325 mg PO BID insulin glargine [Lantus U-100 Insulin] 100 unit/mL solution 32 unit subcut QAM montelukast 10 mg tablet 10 mg PO DAILY ascorbic acid (vitamin C) 500 mg tablet 500 mg PO BID gabapentin 300 mg capsule 300 mg PO BID ipratropium-albuterol 0.5 mg-3 mg(2.5 mg base)/3 mL solution for nebulization 3 ml inhalation Q4H PRN (Reason: BREATHING) ipratropium-albuterol 0.5 mg-3 mg(2.5 mg base)/3 mL solution for nebulization 3 ml inhalation TID Farxiga 10 mg tablet 10 mg PO DAILY furosemide [Lasix] 20 mg tablet 40 mg PO QPM furosemide 40 mg tablet 60 mg PO QAM warfarin 1 mg tablet 1 mg PO QDAY lidocaine HCl [Aspercreme (lidocaine HCl)] 4 % cream 1 applic topical Q4H PRN cefdinir 300 mg capsule 300 mg PO DAILY warfarin 2 mg tablet 2 mg PO .COMPLEX Rx Instructions: 2 mg orally as directed; tramadol 50 mg tablet 50 mg PO Q6H PRN lorazepam 0.5 mg tablet 0.25 mg PO QHS famotidine 20 MG tablet 20 mg PO BID insulin glargine [Lantus Solostar U-100 Insulin] 100 unit/mL (3 mL) insulin pen 30 unit SC QHS carvedilol 6.25 mg Tablet 6.25 mg PO BID magnesium hydroxide [Milk of Magnesia] 400 mg/5 mL Suspension 400 mg PO DAILY PRN (Reason: Constipation) bisacodyl [Dulcolax (bisacodyl)] 10 mg Suppository 10 mg NJ DAILY PRN (Reason: Constipation) cyanocobalamin (vitamin B-12) [Vitamin B-12] 500 mcg Tablet 500 mcg PO DAILY cholecalciferol (vitamin D3) 25 mcg (1,000 unit) Tablet 25 mcg PO DAILY hydroxyzine pamoate [Vistaril] 25 mg Capsule 25 mg PO Q8H PRN (Reason: Anxiety) nitroglycerin 0.4 mg Tablet, Sublingual 0.4 mg sublingual Q5M PRN (Reason: Cardiac/Chest Pain) Qty: 0 0RF menthol-zinc oxide [Calmoseptine] 0.44-20.6 % Ointment 1 applic topical BID Qty: 0 0RF Protocol: *Topical Application Instructions APPLICATION INSTRUCTIONS: groin cetirizine [Zyrtec] 10 mg tablet 5 mg PO DAILY sertraline [Zoloft] 100 mg tablet See Rx Instructions PO QHS Rx Instructions: 100 mg with 75 mg to = 175 mg orally at bedtime; sertraline [Zoloft] 25 mg tablet See Rx Instructions PO QHS Rx Instructions: 75 mg with 100 mg to =175 mg orally at bedtime; warfarin 3 mg tablet PO sertraline 50 mg tablet 50 mg PO DAILY (DME) FreeStyle Precision Richardson Strips Strip See Rx Instructions .ROUTE .MEDSUPPLY Qty: 50 6RF Rx Instructions: As directed Primary Care Provider: Rufus Blanco Referrals: Rufus Blanco DO [Primary Care Provider] - 1 Week Disposition Disposition: Home, Self Care
[2023-09-06 09:36] VITALS: BP 156/63; PULSE 62; RESP 14; O2SAT 96
[2023-09-06 10:26] VITALS: BP 157/61; PULSE 62; RESP 14; TEMP 36.1; O2SAT 96
== END 2023-09-06 10:50 | disposition home or self-care (01) ==
PROVIDERS: Emergency Provider Emergency Medicine; PCP Family Medicine; Visit Provider Emergency Medicine
DX: S00.93XA Contusion of unspecified part of head, initial encounter (principal); I13.0 Hypertensive heart and chronic kidney disease with heart failure and stage 1 through stage 4 chronic kidney disease, or unspecified chronic kidney disease; I50.9 Heart failure, unspecified; J44.9 Chronic obstructive pulmonary disease, unspecified; E11.22 Type 2 diabetes mellitus with diabetic chronic kidney disease; Z79.4 Long term (current) use of insulin; N18.30 Chronic kidney disease, stage 3 unspecified; Z87.891 Personal history of nicotine dependence; W01.10XA Fall on same level from slipping, tripping and stumbling with subsequent striking against unspecified object, initial encounter; Y92.89 Other specified places as the place of occurrence of the external cause; Z79.01 Long term (current) use of anticoagulants; I25.10 Atherosclerotic heart disease of native coronary artery without angina pectoris; I25.2 Old myocardial infarction; E78.5 Hyperlipidemia, unspecified; K21.9 Gastro-esophageal reflux disease without esophagitis; Z79.82 Long term (current) use of aspirin; F41.9 Anxiety disorder, unspecified; F32.A Depression, unspecified; Z79.899 Other long term (current) drug therapy; Z90.49 Acquired absence of other specified parts of digestive tract; Z95.5 Presence of coronary angioplasty implant and graft
CPT/HCPCS: 70450; 72125; 99282

== ENCOUNTER → 2023-09-28 | Outpatient (CLI) | payer MEDICARE, MEDICAID, SELFPAY ==
--- NOTE | 2023-09-28 10:07 | VDLE_ITS ---
Reason For Study: Edema RIGHT LEFT GSV is normal. GSV is normal. CFV is compressible, spontaneous, phasic, CFV is compressible, spontaneous, phasic, competent and demonstrates normal competent, and demonstrates normal augmentation. augmentation. FV is compressible, spontaneous, phasic, FV is compressible, spontaneous, phasic, competent and demonstrates normal competent and demonstrates normal augmentation. augmentation. POP V is compressible, spontaneous, phasic, POP V is compressible, spontaneous, phasic, competent and demonstrates normal competent and demonstrates normal augmentation. augmentation. T/P Trunk is compressible. T/P Trunk is compressible. PTV is compressible. PTV is compressible. RT PerV is compressible. LT PerV is compressible. Heterogenous calcified plaque noted throughout Rt POP A. Procedure This is a venous duplex using B-mode, color flow and spectral Doppler. Exam performed in department. Limited views were obtained. The study was technically difficult due to patient positioning, patient anatomy, and intolerance to compressions. VL/Venous Duplex US - Chirag Extrem Interpretation Summary Deep veins of the bilateral lower extremities are patent and compressible segme ntally. There is no evidence of bilateral lower extremity deep vein thrombosis. The bilateral great saphenous veins appear patent and compressible segmentally. Ordering Physician: Juanpablo London Referring Physician: Rufus Blanco Performed By: Benji Dubon RVT
--- NOTE | 2023-09-28 10:07 | ART_ITS ---
Reason For Study: RLE Wound Procedure A bilateral lower extremity continuous wave Doppler with analog waveform analysis,segmental pressures,and ankle brachial indexes without exercise. Left Segmental Pressures Left brachial= 148mmHg. Left posterior tibial artery = 115mmHg. Left dorsalis pedis artery = >254mmHg. Left digit = 86 mmHg. The left posterior tibial artery waveforms are biphasic. The left dorsalis pedis waveforms are biphasic. Right Segmental Pressures Right brachial= 160mmHg. Right calf = 85mmHg. Right posterior tibial artery = 53mmHg. Right dorsalis pedis artery = 70mmHg. The right posterior tibial artery waveforms are monophasic. The right dorsalis pedis waveforms are monophasic. Indices The right ankle brachial index by the posterior tibial artery is 0.33. The right ankle brachial index by the dorsalis pedis is 0.44. The left ankle brachial index by the posterior tibial artery is 0.72. The left ankle brachial index by the dorsalis pedis is N/C. The left digital-brachial index is 0.54. VL/Lower Ext Art Exam w/o Exercis Interpretation Summary Right LACY 0.44, severe arterial insufficiency. Doppler/PVR waveforms reveal aor [id number] femoral, infrapopliteal disease Left LACY 0.72, moderate arterial insufficiency. Doppler/PVR waveforms reveal ao [id number] femoral disease Ordering Physician: Juanpablo London Referring Physician: Rufus Blanco Performed By: Benji Dubon RVCurtis
== END | disposition home or self-care (01) ==
PROVIDERS: PCP Family Medicine; Referring Provider Student in an Organized Health Care Education/Training Program; Visit Provider Student in an Organized Health Care Education/Training Program
DX: L97.512 Non-pressure chronic ulcer of other part of right foot with fat layer exposed (principal); R60.1 Generalized edema
CPT/HCPCS: 93923; 93970

== ENCOUNTER 2023-11-19 09:54 | Day surgery (SDC) | payer MEDICARE, MEDICAID, SELFPAY ==
[2023-11-16 09:48] VITALS: BMI 36.8
[2023-11-19 10:09] LABS: Absolute Lymphocyte Count 1.24 X10^3/uL (0.83-4.51); Basophil# 0.02 X10^3/uL; Basophil% 0.3 % (0-1); Eosinophil# 0.38 X10^3/uL; Hematocrit 36.8 % (37-47); Hemoglobin 10.7 g/dL (12.0-15.0); Lymphocyte # 1.24 X10^3/ul (0.83-4.51); Lymphocyte % 16.4 % (19-41); Mean Corp Hgb Conc 29.1 g/dL (32-36); Mean Corpuscular Hgb 29.6 pg (27.0-32.0); Mean Corpuscular Volume 101.7 fL (81-99); Monocyte% 11.9 % (0-10); NRBC Flagged by Analyzer 0 % (0-5); Neutrophil # 4.96 X10^3/uL (2.7-7.7); Neutrophil % 65.9 % (47-70); Platelet Count 194 K/mm3 (150-450); RBC Distribution Width CV 15.2 % (11.6-14.6); RBC Distribution Width SD 56.9 fl (35.1-43.9); Red Blood Count 3.62 M/mm3 (4.2-5.4); White Blood Count 7.5 K/mm3 (4.4-11.0)
[2023-11-19 10:27] LABS: INR Fingerstick 1.6; Prothrombin Time Fingerstick 17.5 SEC (11.7-14.9)
[2023-11-19 10:31] LABS: Anion Gap 5 (5-15); BUN 50 mg/dL (7-18); Calcium,Total 9.2 mg/dL (8.5-10.1); Chloride 105 mmol/L (98-107); Creatinine, Serum 1.85 mg/dL (0.55-1.02); EST Glomerular Filtration Rate 28 mL/min (>60); Est Glom Filt Rate - Afr Amer 34 mL/min (>60); Estimated Creatinine Clearance 27.96 ml/min; Glucose 113 mg/dL (74-106); Potassium 4.4 mmol/L (3.5-5.1); Sodium Level 145 mmol/L (136-145)
--- NOTE | 2023-11-19 11:58 | HP.PCM_ITS ---
HPI - General HPI Narrative VAMSHI MARTIN, is a 78 F who presents with right foot wound, prior RLE intervention. PVR reveals multi-level severe disease. [facility] Medical History Rheumatoid arthritis Kidney disease Former smoker On home oxygen therapy Asthma Congestive heart failure (CHF) Myocardial infarct Chest pain Hypertension DVT (deep venous thrombosis) Anemia COPD (chronic obstructive pulmonary disease) Cardiomyopathy, ischemic Hyperlipidemia History of non-ST elevation myocardial infarction (NSTEMI) (07/13/20) Atherosclerotic heart disease of [place] coronary artery without angina pectoris Debility Pulmonary edema Left bundle branch block Allergic rhinitis Lung nodule Stage 2 moderate COPD by GOLD classification Obesity (BMI 30-39.9) Depression Chronic renal failure, stage 3 (moderate) Menieres disease Gastroesophageal reflux disease with hiatal hernia Essential hypertension Diabetes mellitus, type 2 DVT of lower extremity (deep venous thrombosis) (2012) Anxiety disorder Home Medications ?Medication ?Instructions ?Recorded ?Last Taken ?Type famotidine 20 mg tablet 20 mg PO BID stomach 08/14/15 10/12/22 History flash glucose scanning reader #1 ea 01/29/20 Unknown Rx (FreeStyle Sharita 2 [place]) flash glucose sensor (FreeStyle #2 ea 01/29/20 Unknown Rx Sharita 2 Sensor kit) pen needle, diabetic 32 gauge x #100 ea 01/29/20 Unknown Rx 5/32 (BD Ultra-Fine Kaylyn Pen Needle) blood sugar diagnostic (FreeStyle #50 ea 01/30/20 Unknown Rx Precision Richardson Strips) acetaminophen 325 mg tablet 650 mg PO Q4H PRN Pain 08/17/20 Unknown History aspirin 81 mg tablet,delayed 81 mg PO DAILY 08/17/20 10/12/22 History release (Adult Low Dose Aspirin) atorvastatin 40 mg tablet 40 mg PO QHS 08/17/20 10/11/22 History fenofibrate 160 mg tablet 160 mg PO DAILY 08/17/20 10/12/22 History insulin lispro 100 unit/mL See Protocol subcut ACHS 08/17/20 10/11/22 History subcutaneous pen carvedilol 6.25 mg tablet 6.25 mg PO BID 10/24/20 10/12/22 History ascorbic acid (vitamin C) 500 mg 500 mg PO BID 09/04/22 10/11/22 History tablet ferrous sulfate 325 mg (65 mg 325 mg PO BID 09/04/22 10/12/22 History iron) tablet insulin glargine 100 unit/mL 32 unit subcut QAM 09/04/22 10/11/22 History subcutaneous solution (Lantus U-100 Insulin) montelukast 10 mg tablet 10 mg PO DAILY 09/04/22 10/12/22 History sennosides 8.6 mg-docusate sodium 1 tab-cap PO BID PRN Constipation 09/04/22 Unknown History 50 mg capsule (Senna Plus) bisacodyl 10 mg rectal suppository 10 mg MS DAILY PRN Constipation 10/03/22 Unknown History (Dulcolax (bisacodyl)) magnesium hydroxide 400 mg/5 mL 400 mg PO DAILY PRN Constipation 10/03/22 Unknown History oral suspension (Milk of Magnesia) cholecalciferol (vitamin D3) 25 25 mcg PO DAILY SUPPLEMENT 10/12/22 10/12/22 History mcg (1,000 unit) tablet cyanocobalamin (vitamin B-12) 500 500 mcg PO DAILY SUPPLEMENT 10/12/22 10/12/22 History mcg tablet (Vitamin B-12) hydroxyzine pamoate 25 mg capsule 25 mg PO Q8H PRN Anxiety 10/12/22 Unknown History (Vistaril) menthol 0.44 %-zinc oxide 20.6 % 1 applic topical BID #0 grams 10/15/22 Unknown Rx topical ointment (Calmoseptine) nitroglycerin 0.4 mg sublingual 0.4 mg sublingual Q5M PRN 10/15/22 Unknown Rx tablet Cardiac/Chest Pain #0 tabs gabapentin 300 mg capsule 300 mg PO TID 01/16/23 Unknown History ipratropium 0.5 mg-albuterol 3 mg 3 ml inhalation Q4H PRN BREATHING 01/16/23 Unknown History (2.5 mg base)/3 mL nebulization soln ipratropium 0.5 mg-albuterol 3 mg 3 ml inhalation TID 01/16/23 Unknown History (2.5 mg base)/3 mL nebulization soln dapagliflozin propanediol 10 mg 10 mg PO DAILY 01/19/23 Unknown History tablet (Farxiga) cefdinir 300 mg capsule 300 mg PO DAILY 05/25/23 Unknown History cetirizine 10 mg tablet (Zyrtec) 5 mg PO DAILY ALLERGIES 05/25/23 Unknown History furosemide 20 mg tablet (Lasix) 20 mg PO QHS 05/25/23 Unknown History lidocaine HCl 4 % topical cream 1 applic topical Q4H PRN 05/25/23 Unknown History (Aspercreme (lidocaine HCl)) polyethylene glycol 3350 17 17 g PO DAILY PRN Constipation 05/25/23 Unknown History gram/dose oral powder (Miralax) sertraline 100 mg tablet (Zoloft) 200 mg PO QHS DEPRESSION 05/25/23 Unknown History tramadol 50 mg tablet 50 mg PO Q6H PRN pain 05/25/23 Unknown History warfarin 2 mg tablet 2 mg PO .tuthsasun 05/25/23 11/15/23 History insulin glargine 100 unit/mL (3 30 unit subcut QHS diabetes 07/24/23 Unknown History mL) subcutaneous pen (Lantus Solostar U-100 Insulin) lorazepam 0.5 mg tablet 0.5 mg PO QHS Anxiety 07/24/23 Unknown History warfarin 3 mg tablet 3 mg PO .COMPLEX 09/06/23 Unknown History Allergy/AdvReac Type Severity Reaction Status Date / Time Penicillins Allergy Angioedema Verified 10/10/23 13:48 rosiglitazone maleate (From Allergy hyperglycem Verified 10/10/23 13:48 Avandia) ia adhesive tape AdvReac Rash Verified 10/10/23 13:48 cephalexin (From Keflex) AdvReac Diarrhea Verified 10/10/23 13:48 doxycycline AdvReac Diarrhea Verified 10/10/23 13:48 prednisone AdvReac hyperglycem Verified 10/10/23 13:48 ia Sulfa (Sulfonamide AdvReac Itching Verified 10/10/23 13:48 Antibiotics) Family History Sister Lupus Arthritis Brother Colon cancer Cancer Prostate Cancer Arthritis Father Diabetes Heart disease Mother Hypertension Surgical History History of coronary artery stent placement H/O coronary artery bypass surgery (07/27/20) History of cholecystectomy History of left heart catheterization (07/19/20) History of Social History household members: other details: passed 08/2020. housing: senior living Smoking Status: Former smoker how long ago did patient quit smokin alcohol intake: never substance use type: does not use caffeine: No what type of physical activity do you participate in: none frequency: does not exercise seatbelt use: always ROS Constitutional Constitutional: Denies chills, fever(s), frequent falls, lethargy or weakness Eyes Eyes: Denies blind spots, change in vision or loss of vision ENT HEENT: Denies bleeding gums, hoarseness or sore throat Cardiovascular Cardiovascular: Denies abdominal pain, bluish discoloration of hand/feet, chest pain with activity, claudication, cold extremities, cyanosis, dyspnea on exertion, erythema on extremities, irregular heart rhythm, leg edema, leg ulcers, numbness in extremities or weakness in extremities Respiratory/Chest Respiratory/Chest: Denies cough, excessive phlegm production, shortness of breath at rest, shortness of breath with exertion or wheezing Gastrointestinal Gastrointestinal: Denies anorexia, change in stool character, constipation, diarrhea, melena or rectal bleeding Genitourinary Genitourinary: Denies dysuria or hematuria Musculoskeletal Musculoskeletal: Denies abnormal gait Integumentary Integumentary: Reports other Details: ; Denies erythema, non-healing lesions or wounds Neurologic Neurologic: Denies abnormal speech, focal weakness, headache(s), loss of vision, numbness, paresthesias or sensory deficit Hematologic/Lymphatic Hematologic/Lymphatic: Denies easy bleeding, easy bruising or lymphadenopathy Vital Signs Vital Signs Vital Signs: Weight Weight: 215 lb Body Mass Index (BMI) 36.8 Physical Exam Const alert, oriented x3, no apparent distress and healthy appearing General Appearance: cooperative; Negative for combative or lethargic Orientation / Consciousness: awake Exam Limitations: no limitations HEENT Head and Scalp: normocephalic and atraumatic Eyes EOMs intact bilaterally General Eye: normal appearance of both eyes Neck full ROM, no lymphadenopathy, thyroid normal and No no carotid bruits General: trachea midline; Negative for lymphadenopathy or tenderness Thyroid: thyroid normal Lymph Lymphatic: Negative for no lymphadenopathy noted Resp normal respiratory effort, no use of accessory muscles and clear to auscultation bilaterally Effort and Inspection: Negative for labored, stridor or audible wheezes Cardio regular rate, regular rhythm and no murmurs Peripheral Pulses: brachial pulses present, radial pulses present, femoral pulses present, popliteal pulses present, posterior tibial pulses present and dorsalis pedis pulses present Back/Spine Cervical Spine: cervical ROM normal Extremity full ROM, normal capillary refill and no clubbing, cyanosis or edema Skin no rashes or lesions noted and no wounds Neuro oriented x3, CN's II-XII intact bilaterally, no focal motor deficits and no sensory deficits noted Psych thought process normal, cooperative, affect normal, speech normal and activity/motor behavior normal Results Lab / Micro Data 11/19/23 09:58 11/19/23 09:58 Labs: Laboratory Results - last 24 hr 11/19/23 09:58: WBC 7.5, RBC 3.62 L, Hgb 10.7 L, Hct 36.8 L, MCV 101.7 H, MCH 29.6, MCHC 29.1 L, RDW Std Deviation 56.9 H, RDW Coeff of Al[place] 15.2 H, Plt Count 194, MPV 12.0, Immature Gran % (Auto) 0.500, Neut % (Auto) 65.9, Lymph % (Auto) 16.4 L, Atkinson % (Auto) 11.9 H, Eos % (Auto) 5.0, Baso % (Auto) 0.3, Absolute Neuts (auto) 5.0, Absolute Lymphs (auto) 1.24, Nucleated RBC % 0, Sodium 145, Potassium 4.4, Chloride 105, Carbon Dioxide 35.0 H, Anion Gap 5, BUN 50 H, C reatinine 1.85 H, Estim Creat Clear Calc 27.96, Est GFR (MDRD) Af Amer 34 L, Est GFR (MDRD) Non-Af 28 L, BUN/Creatinine Ratio 27.0 H, Glucose 113 H, Calcium 9.2 11/19/23 10:25: POC PT 17.5 H, INR 1.6 Assessment & Plan Assessment/Plan (1) 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
--- NOTE | 2023-11-19 14:29 | PCM.OPRPT ---
Report of Operation Date of Procedure: 11/19/23 Pre-Operative Diagnosis: atherosclerosis [place] arteries right lower extremity with ulceration of toe Post-Operative Diagnosis: same Surgery/Procedure Performed:: aortogram, right lower extremity runoff Description of Surgical Findings:: occlusion SFA origin, dense calcification, AT/peroneal reconstiution Surgeon: Moise Davidson Type of Anesthesia: Local and Sedation,Conscious Estimated Blood Loss (mL): 5 Description of Procedure: HPI: Patient is a 78-year-old female with atherosclerosis and ulceration of the right lower extremity. She previously had undergone a percutaneous intervention many years prior local wound has recently developed. Her noninvasive vascular studies revealed significant multilevel disease and she has chronic kidney disease which precludes CT angiography. She is taken now for angiogram with CO2 in an effort to minimize contrast insult. Description of procedure: Upon obtaining form consent and verification correct patient procedure site patient was taken to the [facility] where she was positioned prepped and draped in usual sterile fashion. Time was performed conscious sedation administered Versed and fentanyl. Skin overlying the left common femoral artery was anesthetized 1% lidocaine the vessel accessed with micropuncture needle wire. This was exchanged for micropuncture sheath through which a glide advantage wire was advanced and the micropuncture sheath exchanged out for hydrophilic dilators. The vessel was dilated to 6 Georgian followed by 5 Georgian sheath. Through the 5 Georgian sheath and Omni Flush catheter advanced to the abdominal aorta and a digital subtraction CO2 aortogram pelvic angiogram was performed. Next using the Omni Flush catheter and glide advantage wire we navigated into the contralateral iliac system advancing our catheter into the distal external iliac artery. This position subtraction CO2 angiography was performed sequentially of the right lower extremity which revealed flush occlusion of the SFA origin with a highly calcified lesion with no reconstitution into the tibial vessels. Seeing no lesions that were amenable to endovascular treatment the wire and catheter withdrawn and a 5 Georgian minx deployed followed by 2 minutes of manual pressure. The patient was then taken to the recovery room for bedrest prior to discharge to home. Radiographic interpretation: Abdominal aorta normal caliber with scattered diffuse atherosclerosis. There is a focal eccentric plaque in the distal aorta just superior to the right iliac artery origin. The left common and external iliac arteries are patent normal caliber with no significant stenosis. Right common and external iliac arteries were patent, though there was some luminal extension the aortic plaque into the common iliac proximally. Common femoral artery patent with no significant stenosis and a patent large-caliber profunda was present. The SFA was occluded at its origin by a highly calcified plaque with no reconstitution until the anterior tibial and peroneal arteries in the mid lower leg. There is no reconstitution of the posterior tibial artery. Both the anterior tibial and peroneal arteries appear to be patent to the ankle.
== END 2023-11-19 16:33 | disposition home or self-care (01) ==
PROVIDERS: Physician Assistant; PCP Family Medicine; Visit Provider Surgery Trauma Surgery
DX: I70.235 Atherosclerosis of native arteries of right leg with ulceration of other part of foot (principal); E11.621 Type 2 diabetes mellitus with foot ulcer; L97.519 Non-pressure chronic ulcer of other part of right foot with unspecified severity; I50.9 Heart failure, unspecified; I13.0 Hypertensive heart and chronic kidney disease with heart failure and stage 1 through stage 4 chronic kidney disease, or unspecified chronic kidney disease; J44.9 Chronic obstructive pulmonary disease, unspecified; E11.22 Type 2 diabetes mellitus with diabetic chronic kidney disease; E11.51 Type 2 diabetes mellitus with diabetic peripheral angiopathy without gangrene; N18.30 Chronic kidney disease, stage 3 unspecified; I25.10 Atherosclerotic heart disease of native coronary artery without angina pectoris; Z87.891 Personal history of nicotine dependence; E78.5 Hyperlipidemia, unspecified; K21.9 Gastro-esophageal reflux disease without esophagitis
CPT/HCPCS: 36200; 36245; 36415; 36416; 75625; 75710; 76937; 80048; 85025; 85610; 99152; 99153; C1760; C1769; C1894; J7040; Q9967